=== PATIENT | female | born 1950 | race Caucasian/White ===

== ENCOUNTER 2020-03-18 12:32 | Observation (INO) | payer MEDICARE, MEDICAID, SELFPAY ==
[2020-03-18] VITALS (11 sets, daily range): BP systolic 119–159; BP diastolic 48–78; PULSE 62–91; RESP 16–84; TEMP 36.9–37; O2SAT 92–100; BMI 28.3
--- NOTE | 2020-03-18 12:58 | XR_ITS ---
WS: [id number] Portable AP upright chest, 03/18/2020 Clinical Data: weakness Comparison: PA and lateral chest, 06/17/2015. Findings: No nodules, masses or effusions are seen. The heart is normal. The pulmonary vascularity is not increased. No pneumonia or pneumothorax is seen. The aortic arch and descending aorta show calci fication and tortuosity. There is a vena caval filter. There are clips in the right upper quadrant fr om a cholecystectomy. There is a calcified lymph node adjacent to the right sixth rib. XR/XR chest 1V portable [id number] Impression: Atherosclerosis.
--- NOTE | 2020-03-18 12:59 | ECG_ITS ---
[facility] Test Date: 2020-03-18 Pat Name: Doris Clarke Department: Room: Gender: Female Accreditation Specialist: : [id number] Requested By: Ld Orozco Order Number: [id number] Dominguez MD: Zack Rose M.D. Measurements Intervals [place] Rate: 95 P: 38 DC: 144 QRS: 13 QRSD: 95 T: 40 QT: 331 QTc: 418 Interpretive Statements SINUS RHYTHM POSSIBLE LEFT ATRIAL ENLARGEMENT [-0.1mV P WAVE IN V1/V2] NONSPECIFIC T-WAVE ABNORMALITY Compared to ECG 06/12/2015 11:15:19 No significant changes Electronically Signed On 03-18-2020 20:34:56 CDT by Zack Rose M.D. [id number]
--- NOTE | 2020-03-18 13:16 | W.ED.GENADLT ---
Documented by User: AI Quinonez 03/19/20 08:57 HPI - General Adult General: Chief complaint: General Medical Stated complaint: GENERAL WEAKNESS/ POSSIBLE UTI Time Seen by Provider: 03/18/20 12:48 History of Present Illness: HPI narrative: Patient is a 69 female comes to the ED with generalized weakness and a headache. Symptoms started within the last 24 hours. She describes feeling weak all over her entire body. Headache is rated a 9 out of 10 at its retro-orbital. She describes this headache is the worst headache she has ever had. Denies any numbness tingling or weakness to the side of the body. Denies any facial tingling or weakness. Associated symptoms: Reports headache(s); Deny chest pain, dyspnea, nausea, rash, palpitations or vomiting Review of Systems Const: Reports: fatigue (generalized weakness); Denies: fever(s) or chills Eyes: Denies: change in vision or eye discomfort ENMT: Denies: throat pain, odynophagia, nasal discharge or nasal congestion Card: Denies: chest pain, palpitations, edema, swelling of feet/ankles, dyspnea on exertion or orthopnea Resp: Denies: dyspnea, productive cough or non-productive cough GI: Denies: abdominal pain, nausea, vomiting, diarrhea, constipation or hematochezia : Denies: flank pain, dysuria or hematuria Musc: Denies: neck pain, back pain or extremity swelling Skin/Breast: Denies: rash or new lesions Neuro: Reports: headache(s); Denies: numbness in extremities or weakness in extremities PFS ED PFSH: Medical History (Updated 03/18/20 @ 21:15 by Desean Harrison MD) Chronic anemia Chronic antibiotic suppression Has been taking nitrofurantoin for last 6 months as per the Chronic anticoagulation Coumadin 2 and 3mg daily depending on INR Chronic kidney disease, stage II (mild) CVA (cerebral vascular accident) Dyslipidemia Elevated hemidiaphragm Hypertension Left-sided weakness Lymphedema Moderate pulmonary arterial systolic hypertension Presence of IVC filter Venous stasis dermatitis Surgical History H/O shoulder surgery History of hip surgery History of hysterectomy S/P cholecystectomy Family History Other CAD (coronary artery disease) Hypertension Stroke Social History Smoking and tobacco status: former smoker Alcohol intake: never Substance/Drug Use: never Household members: spouse Housing: House Physical Exam Const: COMMON NORMALS: patient oriented x3 HENMT: COMMON NORMALS: normocephalic HEAD & SCALP: normocephalic MOUTH: Normal oral and palatal mucosa present THROAT: posterior oropharynx normal and uvula midline Neck/C-Spine: COMMON NORMALS: supple GENERAL: Yes normal visual inspection Resp: COMMON NORMALS: normal respiratory effort, No retractions, No use of accessory muscles and clear to auscultation bilaterally AUSCULTATION: clear to auscultation bilaterally Cardio: COMMON NORMALS: regular rate, regular rhythm, S1 normal heart sound present, S2 normal heart sound present, No gallops present (Cardio), No clicks present (Cardio), No murmurs present (Cardio) and Peripheral pulses 2+ throughout RATE: regular rate RHYTHM: regular rhythm HEART SOUNDS: S1 normal heart sound present and S2 normal heart sound present PERIPHERAL PULSES: Peripheral pulses 2+ throughout and dorsalis pedis present positive bilateral 1+ GI: COMMON NORMALS: Normal to inspection, nondistended, normoactive bowel sounds present, Soft to palpation, non-tender and no masses PALPATION: Yes Soft to palpation OTHER: Patient has no abdominal tenderness. Negative for Brock sign. : COMMON NORMALS: Yes no CVA tenderness BLADDER/KIDNEY EXAM: Yes no CVA tenderness Back/Pelvis: COMMON NORMALS: no CVA tenderness Extremity: GENERAL: Yes normal exam except as noted and Yes edema (2+ nonpitting edema in lower extremities bilaterally.) Neuro: COMMON NORMALS: patient oriented x3 and moves all extremities Skin: COMMON NORMALS: no rashes or lesions noted GENERAL SKIN EXAM: no rashes or lesions noted and dry skin Course Reevaluation(s): Reevaluation #1: Patient says her headache improved greatly after Ultram and she rates it below a 5 out of 10. Vital Signs: Vital signs: Vital Signs Temperature 98.1 F 03/19/20 08:00 Pulse Rate 65 03/19/20 08:00 Respiratory Rate 16 03/19/20 08:00 Blood Pressure 115/72 03/19/20 08:00 Pulse Oximetry 96 03/19/20 08:00 [facility] - General Adult Lab Data: Attestation: I reviewed the patient's lab results. Labs: Lab Results 03/18/20 03/18/20 03/18/20 Range/Units 13:29 14:25 14:25 WBC 7.2 (4.0-10.0) 10^3/ uL RBC 4.19 (4.1-5.3) 10^6/u L Hgb 12.7 (11.5-15.3) g/dL Hct 40.3 (37.0-47.0) % MCV 96.2 (81-99) fL MCH 30.3 (28.0-34.0) pg MCHC 31.5 (30.0-36.0) g/dL RDW 13.6 (12.1-15.1) % Plt Count 204 (130-400) 10^3/c mm MPV 10.6 H (7.4-10.4) fL Neut % (Auto) 61.5 % Lymph % (Auto) 25.3 % [place] % (Auto) 10.2 % Eos % (Auto) 1.9 % Baso % (Auto) 0.7 % Neut # (Auto) 4.44 (1.8-7.7) 10^3/u L Lymph # (Auto) 1.8 (0.8-4.8) 10^3/u L [place] # (Auto) 0.7 (0.2-0.9) 10^3/u L Eos # (Auto) 0.1 (0.0-0.8) 10^3/u L Baso # (Auto) 0.1 (0.0-0.1) 10^3/u L Nucleated RBC % (a uto) 0 % Nucleated RBCs # 0.0 /100WBC PT (12.1-14.9) SECO NDS INR (0.8-1.2) Sodium 142 (136-145) mmol/L Potassium 3.5 (3.5-5.1) mmol/L Chloride 103 (98-107) mmol/L Carbon Dioxide 29 (22-29) mmol/L Anion Gap 13.5 (5-19) BUN 20 (8-23) mg/dL Creatinine 0.7 (0.5-0.9) mg/dL GFR Calculation 83.0 L (90-130) mL/min Glucose 124 H (65-115) mg/dL Estimat Average Gl ucose Hemoglobin A1c (4.0-6.0) % Calculated Osmolal ity 298 H (285-295) mOsm/k g Calcium 9.5 (8.5-10.5) mg/dL Total Bilirubin 0.7 (0.15-1.2) mg/dL AST 167 H (0-32) U/L ALT 262 H (0-33) U/L Alkaline Phosphata se 29 L (35-105) IU/L Troponin T Baselin e (0-10) ng/L Troponin T 120 Min [place] (0-10) ng/L Delta Troponin T (0-10) ABS# NT-Pro-B Natriuret Pep (0-125) pg/mL Total Protein 7.0 (6.6-8.7) g/dL Albumin 3.5 (3.5-5.2) g/dL Globulin 3.5 (1.3-4.6) g/dL TSH (0.27-4.20) uIU/ mL Urine Color Yellow (Yellow) Urine Appearance Clear (CLEAR) Urine pH 5 (5-7) Ur Specific Gravit y 1.020 (1.005-1.030) Urine Protein Neg (Negative) Urine Glucose (UA) Norm (Normal) Urine Ketones Negative (Negative) Urine Blood 2+ H (Negative) Urine Nitrate Negative (Negative) Urine Bilirubin Neg (Negative) Urine Urobilinogen Norm (Negative) mg/dL Ur Leukocyte Kiera ase Negative (Negative) Urine RBC 0-4 H (0-2) /hpf Urine WBC 0-4 H (0-5) /hpf Ur Squamous Epith Cells 0-4 H (0-5) /hpf Amorphous Sediment Not Reportable Urine Bacteria Trace (NONE) /hpf Hyaline Casts 10-15 H /lpf Urine Mucus 1+ /hpf Hepatitis A IgM Ab (Nonreactive) Hep Bs Antigen (Nonreactive) Hep Bs Antibody (0-8.5) Hep B Core Total A b (Nonreactive) Hepatitis C Antibo dy (Nonreactive) 03/18/20 03/18/20 03/18/20 Range/Units 14:25 14:25 14:25 WBC (4.0-10.0) 10^3/ uL RBC (4.1-5.3) 10^6/u L Hgb (11.5-15.3) g/dL Hct (37.0-47.0) % MCV (81-99) fL MCH (28.0-34.0) pg MCHC (30.0-36.0) g/dL RDW (12.1-15.1) % Plt Count (130-400) 10^3/c mm MPV (7.4-10.4) fL Neut % (Auto) % Lymph % (Auto) % [place] % (Auto) % Eos % (Auto) % Baso % (Auto) % Neut # (Auto) (1.8-7.7) 10^3/u L Lymph # (Auto) (0.8-4.8) 10^3/u L [place] # (Auto) (0.2-0.9) 10^3/u L Eos # (Auto) (0.0-0.8) 10^3/u L Baso # (Auto) (0.0-0.1) 10^3/u L Nucleated RBC % (a uto) % Nucleated RBCs # /100WBC PT 20.90 H (12.1-14.9) SECO NDS INR 1.74 H (0.8-1.2) Sodium (136-145) mmol/L Potassium (3.5-5.1) mmol/L Chloride (98-107) mmol/L Carbon Dioxide (22-29) mmol/L Anion Gap (5-19) BUN (8-23) mg/dL Creatinine (0.5-0.9) mg/dL GFR Calculation (90-130) mL/min Glucose (65-115) mg/dL Estimat Average Gl ucose Hemoglobin A1c (4.0-6.0) % Calculated Osmolal ity (285-295) mOsm/k g Calcium (8.5-10.5) mg/dL Total Bilirubin (0.15-1.2) mg/dL AST (0-32) U/L ALT (0-33) U/L Alkaline Phosphata se (35-105) IU/L Troponin T Baselin e 17 H (0-10) ng/L Troponin T 120 Min [place] (0-10) ng/L Delta Troponin T (0-10) ABS# NT-Pro-B Natriuret Pep (0-125) pg/mL Total Protein (6.6-8.7) g/dL Albumin (3.5-5.2) g/dL Globulin (1.3-4.6) g/dL TSH (0.27-4.20) uIU/ mL Urine Color (Yellow) Urine Appearance (CLEAR) Urine pH (5-7) Ur Specific Gravit y (1.005-1.030) Urine Protein (Negative) Urine Glucose (UA) (Normal) Urine Ketones (Negative) Urine Blood (Negative) Urine Nitrate (Negative) Urine Bilirubin (Negative) Urine Urobilinogen (Negative) mg/dL Ur Leukocyte Kiera ase (Negative) Urine RBC (0-2) /hpf Urine WBC (0-5) /hpf Ur Squamous Epith Cells (0-5) /hpf Amorphous Sediment Urine Bacteria (NONE) /hpf Hyaline Casts /lpf Urine Mucus /hpf Hepatitis A IgM Ab Non-reactive (Nonreactive) Hep Bs Antigen Non-reactive (Nonreactive) Hep Bs Antibody 3.5 (0-8.5) Hep B Core Total A b Non-reactive (Nonreactive) Hepatitis C Antibo dy Non-reactive (Nonreactive) 03/18/20 03/18/20 03/18/20 Range/Units 14:25 14:25 16:28 WBC (4.0-10.0) 10^3/ uL RBC (4.1-5.3) 10^6/u L Hgb (11.5-15.3) g/dL Hct (37.0-47.0) % MCV (81-99) fL MCH (28.0-34.0) pg MCHC (30.0-36.0) g/dL RDW (12.1-15.1) % Plt Count (130-400) 10^3/c mm MPV (7.4-10.4) fL Neut % (Auto) % Lymph % (Auto) % [place] % (Auto) % Eos % (Auto) % Baso % (Auto) % Neut # (Auto) (1.8-7.7) 10^3/u L Lymph # (Auto) (0.8-4.8) 10^3/u L [place] # (Auto) (0.2-0.9) 10^3/u L Eos # (Auto) (0.0-0.8) 10^3/u L Baso # (Auto) (0.0-0.1) 10^3/u L Nucleated RBC % (a uto) % Nucleated RBCs # /100WBC PT (12.1-14.9) SECO NDS INR (0.8-1.2) Sodium (136-145) mmol/L Potassium (3.5-5.1) mmol/L Chloride (98-107) mmol/L Carbon Dioxide (22-29) mmol/L Anion Gap (5-19) BUN (8-23) mg/dL Creatinine (0.5-0.9) mg/dL GFR Calculation (90-130) mL/min Glucose (65-115) mg/dL Estimat Average Gl ucose 103 Hemoglobin A1c 5.2 (4.0-6.0) % Calculated Osmolal ity (285-295) mOsm/k g Calcium (8.5-10.5) mg/dL Total Bilirubin (0.15-1.2) mg/dL AST (0-32) U/L ALT (0-33) U/L Alkaline Phosphata se (35-105) IU/L Troponin T Baselin e (0-10) ng/L Troponin T 120 Min [place] 17.30 H (0-10) ng/L Delta Troponin T 0.30 (0-10) ABS# NT-Pro-B Natriuret Pep (0-125) pg/mL Total Protein (6.6-8.7) g/dL Albumin (3.5-5.2) g/dL Globulin (1.3-4.6) g/dL TSH 0.63 (0.27-4.20) uIU/ mL Urine Color (Yellow) Urine Appearance (CLEAR) Urine pH (5-7) Ur Specific Gravit y (1.005-1.030) Urine Protein (Negative) Urine Glucose (UA) (Normal) Urine Ketones (Negative) Urine Blood (Negative) Urine Nitrate (Negative) Urine Bilirubin (Negative) Urine Urobilinogen (Negative) mg/dL Ur Leukocyte Kiera ase (Negative) Urine RBC (0-2) /hpf Urine WBC (0-5) /hpf Ur Squamous Epith Cells (0-5) /hpf Amorphous Sediment Urine Bacteria (NONE) /hpf Hyaline Casts /lpf Urine Mucus /hpf Hepatitis A IgM Ab (Nonreactive) Hep Bs Antigen (Nonreactive) Hep Bs Antibody (0-8.5) Hep B Core Total A b (Nonreactive) Hepatitis C Antibo dy (Nonreactive) 03/18/20 Range/Units 16:28 WBC (4.0-10.0) 10^3/ uL RBC (4.1-5.3) 10^6/u L Hgb (11.5-15.3) g/dL Hct (37.0-47.0) % MCV (81-99) fL MCH (28.0-34.0) pg MCHC (30.0-36.0) g/dL RDW (12.1-15.1) % Plt Count (130-400) 10^3/c mm MPV (7.4-10.4) fL Neut % (Auto) % Lymph % (Auto) % [place] % (Auto) % Eos % (Auto) % Baso % (Auto) % Neut # (Auto) (1.8-7.7) 10^3/u L Lymph # (Auto) (0.8-4.8) 10^3/u L [place] # (Auto) (0.2-0.9) 10^3/u L Eos # (Auto) (0.0-0.8) 10^3/u L Baso # (Auto) (0.0-0.1) 10^3/u L Nucleated RBC % (a uto) % Nucleated RBCs # /100WBC PT (12.1-14.9) SECO NDS INR (0.8-1.2) Sodium (136-145) mmol/L Potassium (3.5-5.1) mmol/L Chloride (98-107) mmol/L Carbon Dioxide (22-29) mmol/L Anion Gap (5-19) BUN (8-23) mg/dL Creatinine (0.5-0.9) mg/dL GFR Calculation (90-130) mL/min Glucose (65-115) mg/dL Estimat Average Gl ucose Hemoglobin A1c (4.0-6.0) % Calculated Osmolal ity (285-295) mOsm/k g Calcium (8.5-10.5) mg/dL Total Bilirubin (0.15-1.2) mg/dL AST (0-32) U/L ALT (0-33) U/L Alkaline Phosphata se (35-105) IU/L Troponin T Baselin e (0-10) ng/L Troponin T 120 Min [place] (0-10) ng/L Delta Troponin T (0-10) ABS# NT-Pro-B Natriuret Pep 456 H (0-125) pg/mL Total Protein (6.6-8.7) g/dL Albumin (3.5-5.2) g/dL Globulin (1.3-4.6) g/dL TSH (0.27-4.20) uIU/ mL Urine Color (Yellow) Urine Appearance (CLEAR) Urine pH (5-7) Ur Specific Gravit y (1.005-1.030) Urine Protein (Negative) Urine Glucose (UA) (Normal) Urine Ketones (Negative) Urine Blood (Negative) Urine Nitrate (Negative) Urine Bilirubin (Negative) Urine Urobilinogen (Negative) mg/dL Ur Leukocyte Kiera ase (Negative) Urine RBC (0-2) /hpf Urine WBC (0-5) /hpf Ur Squamous Epith Cells (0-5) /hpf Amorphous Sediment Urine Bacteria (NONE) /hpf Hyaline Casts /lpf Urine Mucus /hpf Hepatitis A IgM Ab (Nonreactive) Hep Bs Antigen (Nonreactive) Hep Bs Antibody (0-8.5) Hep B Core Total A b (Nonreactive) Hepatitis C Antibo dy (Nonreactive) Imaging Data^: CXR: Attestation: I personally reviewed and interpreted this imaging study as follows: Radiologist's impression: [address] [address] XRay Report Signed Patient: Doris Clarke Unit #: [id number] : 1950 Age/Sex: 69 / F ADM Date: 03/18/20 Loc: ER Room/Bed: Attending Dr: Ordering Provider/Ordering MD: Ld Orozco Date of Service: 03/18/20 Procedure(s): XR chest 1V portable [id number] Accession Number(s): [id number] Report Number: [id number] WS: [id number] Portable AP upright chest, 03/18/2020 Clinical Data: weakness Comparison: PA and lateral chest, 06/17/2015. Findings: No nodules, masses or effusions are seen. The heart is normal. The pulmonary vascularity is not increased. No pneumonia or pneumothorax is seen. The aortic arch and descending aorta show calcification and tortuosity. There is a vena caval filter. There are clips in the right upper quadrant from a cholecystectomy. There is a calcified lymph node adjacent to the right sixth rib. XR/XR chest 1V portable [id number] Impression: Atherosclerosis. Dictated By: Barbie Berger MD Signed By: Barbie Berger MD Signed Date/Time: 03/18/20 1346 DD/ 134 CT Head: Attestation: I personally reviewed and interpreted this imaging study as follows: Radiologist's impression: [place] [address] CT Scan Report Signed Patient: Doris Clarke Unit #: [id number] : 1950 Age/Sex: 69 / F ADM Date: 03/18/20 Loc: ER Room/Bed: Attending Dr: Ordering Provider/Ordering MD: Ld Orozco Date of Service: 03/18/20 Procedure(s): CT head wo con* [id number] Accession Number(s): [id number] Report Number: [id number] PROCEDURE INFORMATION: Exam: CT Head Without Contrast Exam date and time: 03/18/2020 2:09 PM Age: 69 years old Clinical indication: Pain; Headache not specified; Additional info: Headache worst she has ever had TECHNIQUE: Imaging protocol: Computed tomography of the head without contrast. Radiation optimization: All CT scans at this facility use at least one of these dose optimization techniques: automated exposure control; mA and/or kV adjustment per patient size (includes targeted exams where dose is matched to clinical indication); or iterative reconstruction. COMPARISON: CT head wo con* [id number] 03/16/2015 11:28 AM RADIATION DOSE METRICS: Total DLP (mGy-cm): 828.66 FINDINGS: Brain: No hemorrhage. No edema or mass effect. Stable atrophy. Cerebral ventricles: Minimal ventricular dilatation. Bones/joints: Unremarkable. No acute fracture. Paranasal sinuses: Visualized sinuses are unremarkable. No fluid levels. Mastoid air cells: Unremarkable. Soft tissues: Unremarkable. CT/CT head wo con* [id number] IMPRESSION: No acute intracranial abnormality. Radiation Dose CTDIVOL = (mGy): DLP = 828.66 (mGy-cm) Dictated By: Donald Mcneil MD Signed By: Donald Mcneil MD Signed Date/Time: 03/18/201452 DD/ 50 EKG Data^: EKG 1: Attestation: I personally reviewed and interpreted this EKG as follows: EKG interpretation date: 03/18/20 Interpretation: Sinus rhythm, 95 bpm, no ST segment elevation or depression seen. Computer generated interpretation: Chest X-Ray 03/18/20 12:58 Impression: Atherosclerosis. Head CT 03/18/20 13:53 IMPRESSION: No acute intracranial abnormality. Radiation Dose CTDIVOL = (mGy): DLP = 828.66 (mGy-cm) Abdomen/Pelvis CT 03/18/20 17:55 IMPRESSION: No acute findings. Radiation Dose CTDIVOL = (mGy): DLP = 1462.63 (mGy-cm) Discharge Plan Discharge Patient Disposition: Admitted As Inpatient Admit Provider: Desean Harrison Clinical Impression: Generalized weakness, Elevated liver enzymes Headache Qualifiers: Headache type: unspecified Headache chronicity pattern: acute headache Intractability: not intractable Qualified Code(s): R51.9 - Headache, unspecified Condition: Stable Referrals: Efren Romano MD [Family Provider] - Discharge Diet: Regular Discharge Activity: Increase activity as tolerated Patient Instructions: Acute Headache (ED), Weakness (Generalized) Additional Instructions: Follow-up with medical provider as directed early next week. Continue taking all home medications as prescribed. Return to the ER or your medical provider if condition worsens. Please read and understand discharge instructions. If any questions, please ask. Discharge Date/Time: 03/18/20 21:16 Coding Level of Care Code ED Patient Consumer Marketer for Chg Fwd Exam Comprehensive Documented by User: Danita Calixto MD, [facility] [place] 03/18/20 23:28 HPI - General Adult General: Chief complaint: General Medical Stated complaint: GENERAL WEAKNESS/ POSSIBLE UTI Time Seen by Provider: 03/18/20 12:48 [facility] ED PFSH: Medical History (Updated 03/18/20 @ 21:15 by Desean Harrison MD) Chronic anemia Chronic antibiotic suppression Has been taking nitrofurantoin for last 6 months as per the Chronic anticoagulation Coumadin 2 and 3mg daily depending on INR Chronic kidney disease, stage II (mild) CVA (cerebral vascular accident) Dyslipidemia Elevated hemidiaphragm Hypertension Left-sided weakness Lymphedema Moderate pulmonary arterial systolic hypertension Presence of IVC filter Venous stasis dermatitis Surgical History H/O shoulder surgery History of hip surgery History of hysterectomy S/P cholecystectomy Family History Other CAD (coronary artery disease) Hypertension Stroke Social History Smoking and tobacco status: former smoker Alcohol intake: never Substance/Drug Use: never Household members: spouse Housing: House Course ED course: Patient who presents to the emergency department with nonspecific symptoms of generalized weakness. Patient was evaluated no acute findings were followed, however when it was time to discharge had the patient was unable to get up out of bed unassisted and it took 3 people to get up from the bed into the wheelchair. Since she lives alone with her I do not think it is safe for her to be discharged home. She is therefore admitted overnight for further evaluation and management. She likely will need some rehabilitation with physical therapy. Consultations: Consultation #1: Discussed with Dr. Harrison, hospitalist and he kindly accepted the patient to his service Time: 20:30 Vital Signs: Vital signs: Vital Signs Temperature 98.1 F 03/19/20 08:00 Pulse Rate 65 03/19/20 08:00 Respiratory Rate 16 03/19/20 08:00 Blood Pressure 115/72 03/19/20 08:00 Pulse Oximetry 96 03/19/20 08:00 MDM - General Adult MDM Narrative: Medical decision making narrative: Presents with generalized weakness no acute findings on the evaluation in the emergency department. However the patient was unable to get up on go to a chair after discharge. It is not safe for her to be discharged home, therefore she is admitted to the hospital. Lab Data: Labs: Lab Results 03/18/20 03/18/20 03/18/20 Range/Units 13:29 14:25 14:25 WBC 7.2 (4.0-10.0) 10^3/ uL RBC 4.19 (4.1-5.3) 10^6/u L Hgb 12.7 (11.5-15.3) g/dL Hct 40.3 (37.0-47.0) % MCV 96.2 (81-99) fL MCH 30.3 (28.0-34.0) pg MCHC 31.5 (30.0-36.0) g/dL RDW 13.6 (12.1-15.1) % Plt Count 204 (130-400) 10^3/c mm MPV 10.6 H (7.4-10.4) fL Neut % (Auto) 61.5 % Lymph % (Auto) 25.3 % [place] % (Auto) 10.2 % Eos % (Auto) 1.9 % Baso % (Auto) 0.7 % Neut # (Auto) 4.44 (1.8-7.7) 10^3/u L Lymph # (Auto) 1.8 (0.8-4.8) 10^3/u L [place] # (Auto) 0.7 (0.2-0.9) 10^3/u L Eos # (Auto) 0.1 (0.0-0.8) 10^3/u L Baso # (Auto) 0.1 (0.0-0.1) 10^3/u L Nucleated RBC % (a uto) 0 % Nucleated RBCs # 0.0 /100WBC PT (12.1-14.9) SECO NDS INR (0.8-1.2) Sodium 142 (136-145) mmol/L Potassium 3.5 (3.5-5.1) mmol/L Chloride 103 (98-107) mmol/L Carbon Dioxide 29 (22-29) mmol/L Anion Gap 13.5 (5-19) BUN 20 (8-23) mg/dL Creatinine 0.7 (0.5-0.9) mg/dL GFR Calculation 83.0 L (90-130) mL/min Glucose 124 H (65-115) mg/dL Estimat Average Gl ucose Hemoglobin A1c (4.0-6.0) % Calculated Osmolal ity 298 H (285-295) mOsm/k g Calcium 9.5 (8.5-10.5) mg/dL Total Bilirubin 0.7 (0.15-1.2) mg/dL AST 167 H (0-32) U/L ALT 262 H (0-33) U/L Alkaline Phosphata se 29 L (35-105) IU/L Troponin T Baselin e (0-10) ng/L Troponin T 120 Min [place] (0-10) ng/L Delta Troponin T (0-10) ABS# NT-Pro-B Natriuret Pep (0-125) pg/mL Total Protein 7.0 (6.6-8.7) g/dL Albumin 3.5 (3.5-5.2) g/dL Globulin 3.5 (1.3-4.6) g/dL TSH (0.27-4.20) uIU/ mL Urine Color Yellow (Yellow) Urine Appearance Clear (CLEAR) Urine pH 5 (5-7) Ur Specific Gravit y 1.020 (1.005-1.030) Urine Protein Neg (Negative) Urine Glucose (UA) Norm (Normal) Urine Ketones Negative (Negative) Urine Blood 2+ H (Negative) Urine Nitrate Negative (Negative) Urine Bilirubin Neg (Negative) Urine Urobilinogen Norm (Negative) mg/dL Ur Leukocyte Kiera ase Negative (Negative) Urine RBC 0-4 H (0-2) /hpf Urine WBC 0-4 H (0-5) /hpf Ur Squamous Epith Cells 0-4 H (0-5) /hpf Amorphous Sediment Not Reportable Urine Bacteria Trace (NONE) /hpf Hyaline Casts 10-15 H /lpf Urine Mucus 1+ /hpf Hepatitis A IgM Ab (Nonreactive) Hep Bs Antigen (Nonreactive) Hep Bs Antibody (0-8.5) Hep B Core Total A b (Nonreactive) Hepatitis C Antibo dy (Nonreactive) 03/18/20 03/18/20 03/18/20 Range/Units 14:25 14:25 14:25 WBC (4.0-10.0) 10^3/ uL RBC (4.1-5.3) 10^6/u L Hgb (11.5-15.3) g/dL Hct (37.0-47.0) % MCV (81-99) fL MCH (28.0-34.0) pg MCHC (30.0-36.0) g/dL RDW (12.1-15.1) % Plt Count (130-400) 10^3/c mm MPV (7.4-10.4) fL Neut % (Auto) % Lymph % (Auto) % [place] % (Auto) % Eos % (Auto) % Baso % (Auto) % Neut # (Auto) (1.8-7.7) 10^3/u L Lymph # (Auto) (0.8-4.8) 10^3/u L [place] # (Auto) (0.2-0.9) 10^3/u L Eos # (Auto) (0.0-0.8) 10^3/u L Baso # (Auto) (0.0-0.1) 10^3/u L Nucleated RBC % (a uto) % Nucleated RBCs # /100WBC PT 20.90 H (12.1-14.9) SECO NDS INR 1.74 H (0.8-1.2) Sodium (136-145) mmol/L Potassium (3.5-5.1) mmol/L Chloride (98-107) mmol/L Carbon Dioxide (22-29) mmol/L Anion Gap (5-19) BUN (8-23) mg/dL Creatinine (0.5-0.9) mg/dL GFR Calculation (90-130) mL/min Glucose (65-115) mg/dL Estimat Average Gl ucose Hemoglobin A1c (4.0-6.0) % Calculated Osmolal ity (285-295) mOsm/k g Calcium (8.5-10.5) mg/dL Total Bilirubin (0.15-1.2) mg/dL AST (0-32) U/L ALT (0-33) U/L Alkaline Phosphata se (35-105) IU/L Troponin T Baselin e 17 H (0-10) ng/L Troponin T 120 Min [place] (0-10) ng/L Delta Troponin T (0-10) ABS# NT-Pro-B Natriuret Pep (0-125) pg/mL Total Protein (6.6-8.7) g/dL Albumin (3.5-5.2) g/dL Globulin (1.3-4.6) g/dL TSH (0.27-4.20) uIU/ mL Urine Color (Yellow) Urine Appearance (CLEAR) Urine pH (5-7) Ur Specific Gravit y (1.005-1.030) Urine Protein (Negative) Urine Glucose (UA) (Normal) Urine Ketones (Negative) Urine Blood (Negative) Urine Nitrate (Negative) Urine Bilirubin (Negative) Urine Urobilinogen (Negative) mg/dL Ur Leukocyte [place] a[place] (Negative) Urine RBC (0-2) /hpf Urine WBC (0-5) /hpf Ur Squamous Epith Cells (0-5) /hpf Amorphous Sediment Urine Bacteria (NONE) /hpf Hyaline Casts /lpf Urine Mucus /hpf Hepatitis A IgM Ab Non-reactive (Nonreactive) Hep Bs Antigen Non-reactive (Nonreactive) Hep Bs Antibody 3.5 (0-8.5) Hep B Core Total A b Non-reactive (Nonreactive) Hepatitis C Antibo dy Non-reactive (Nonreactive) 03/18/20 03/18/20 03/18/20 Range/Units 14:25 14:25 16:28 WBC (4.0-10.0) 10^3/ uL RBC (4.1-5.3) 10^6/u L Hgb (11.5-15.3) g/dL Hct (37.0-47.0) % MCV (81-99) fL MCH (28.0-34.0) pg MCHC (30.0-36.0) g/dL RDW (12.1-15.1) % Plt Count (130-400) 10^3/c mm MPV (7.4-10.4) fL Neut % (Auto) % Lymph % (Auto) % [place] % (Auto) % Eos % (Auto) % Baso % (Auto) % Neut # (Auto) (1.8-7.7) 10^3/u L Lymph # (Auto) (0.8-4.8) 10^3/u L [place] # (Auto) (0.2-0.9) 10^3/u L Eos # (Auto) (0.0-0.8) 10^3/u L Baso # (Auto) (0.0-0.1) 10^3/u L Nucleated RBC % (a uto) % Nucleated RBCs # /100WBC PT (12.1-14.9) SECO NDS INR (0.8-1.2) Sodium (136-145) mmol/L Potassium (3.5-5.1) mmol/L Chloride (98-107) mmol/L Carbon Dioxide (22-29) mmol/L Anion Gap (5-19) BUN (8-23) mg/dL Creatinine (0.5-0.9) mg/dL GFR Calculation (90-130) mL/min Glucose (65-115) mg/dL Estimat Average Gl ucose 103 Hemoglobin A1c 5.2 (4.0-6.0) % Calculated Osmolal ity (285-295) mOsm/k g Calcium (8.5-10.5) mg/dL Total Bilirubin (0.15-1.2) mg/dL AST (0-32) U/L ALT (0-33) U/L Alkaline Phosphata se (35-105) IU/L Troponin T Baselin e (0-10) ng/L Troponin T 120 Min [place] 17.30 H (0-10) ng/L Delta Troponin T 0.30 (0-10) ABS# NT-Pro-B Natriuret Pep (0-125) pg/mL Total Protein (6.6-8.7) g/dL Albumin (3.5-5.2) g/dL Globulin (1.3-4.6) g/dL TSH 0.63 (0.27-4.20) uIU/ mL Urine Color (Yellow) Urine Appearance (CLEAR) Urine pH (5-7) Ur Specific Gravit y (1.005-1.030) Urine Protein (Negative) Urine Glucose (UA) (Normal) Urine Ketones (Negative) Urine Blood (Negative) Urine Nitrate (Negative) Urine Bilirubin (Negative) Urine Urobilinogen (Negative) mg/dL Ur Leukocyte Kiera ase (Negative) Urine RBC (0-2) /hpf Urine WBC (0-5) /hpf Ur Squamous Epith Cells (0-5) /hpf Amorphous Sediment Urine Bacteria (NONE) /hpf Hyaline Casts /lpf Urine Mucus /hpf Hepatitis A IgM Ab (Nonreactive) Hep Bs Antigen (Nonreactive) Hep Bs Antibody (0-8.5) Hep B Core Total A b (Nonreactive) Hepatitis C Antibo dy (Nonreactive) 03/18/20 Range/Units 16:28 WBC (4.0-10.0) 10^3/ uL RBC (4.1-5.3) 10^6/u L Hgb (11.5-15.3) g/dL Hct (37.0-47.0) % MCV (81-99) fL MCH (28.0-34.0) pg MCHC (30.0-36.0) g/dL RDW (12.1-15.1) % Plt Count (130-400) 10^3/c mm MPV (7.4-10.4) fL Neut % (Auto) % Lymph % (Auto) % [place] % (Auto) % Eos % (Auto) % Baso % (Auto) % Neut # (Auto) (1.8-7.7) 10^3/u L Lymph # (Auto) (0.8-4.8) 10^3/u L [place] # (Auto) (0.2-0.9) 10^3/u L Eos # (Auto) (0.0-0.8) 10^3/u L Baso # (Auto) (0.0-0.1) 10^3/u L Nucleated RBC % (a uto) % Nucleated RBCs # /100WBC PT (12.1-14.9) SECO NDS INR (0.8-1.2) Sodium (136-145) mmol/L Potassium (3.5-5.1) mmol/L Chloride (98-107) mmol/L Carbon Dioxide (22-29) mmol/L Anion Gap (5-19) BUN (8-23) mg/dL Creatinine (0.5-0.9) mg/dL GFR Calculation (90-130) mL/min Glucose (65-115) mg/dL Estimat Average Gl ucose Hemoglobin A1c (4.0-6.0) % Calculated Osmolal ity (285-295) mOsm/k g Calcium (8.5-10.5) mg/dL Total Bilirubin (0.15-1.2) mg/dL AST (0-32) U/L ALT (0-33) U/L Alkaline Phosphata se (35-105) IU/L Troponin T Baselin e (0-10) ng/L Troponin T 120 Min [place] (0-10) ng/L Delta Troponin T (0-10) ABS# NT-Pro-B Natriuret Pep 456 H (0-125) pg/mL Total Protein (6.6-8.7) g/dL Albumin (3.5-5.2) g/dL Globulin (1.3-4.6) g/dL TSH (0.27-4.20) uIU/ mL Urine Color (Yellow) Urine Appearance (CLEAR) Urine pH (5-7) Ur Specific Gravit y (1.005-1.030) Urine Protein (Negative) Urine Glucose (UA) (Normal) Urine Ketones (Negative) Urine Blood (Negative) Urine Nitrate (Negative) Urine Bilirubin (Negative) Urine Urobilinogen (Negative) mg/dL Ur Leukocyte Kiera ase (Negative) Urine RBC (0-2) /hpf Urine WBC (0-5) /hpf Ur Squamous Epith Cells (0-5) /hpf Amorphous Sediment Urine Bacteria (NONE) /hpf Hyaline Casts /lpf Urine Mucus /hpf Hepatitis A IgM Ab (Nonreactive) Hep Bs Antigen (Nonreactive) Hep Bs Antibody (0-8.5) Hep B Core Total A b (Nonreactive) Hepatitis C Antibo dy (Nonreactive) EKG Data^: EKG 1: Computer generated interpretation: Chest X-Ray 03/18/20 12:58 Impression: Atherosclerosis. Head CT 03/18/20 13:53 IMPRESSION: No acute intracranial abnormality. Radiation Dose CTDIVOL = (mGy): DLP = 828.66 (mGy-cm) Abdomen/Pelvis CT 03/18/20 17:55 IMPRESSION: No acute findings. Radiation Dose CTDIVOL = (mGy): DLP = 1462.63 (mGy-cm) Discharge Plan Discharge Patient Disposition: Admitted As Inpatient Admit Provider: Desean Harrison Clinical Impression: Generalized weakness, Elevated liver enzymes Headache Qualifiers: Headache type: unspecified Headache chronicity pattern: acute headache Intractability: not intractable Qualified Code(s): R51.9 - Headache, unspecified Condition: Stable Referrals: Efren Romano MD [Family Provider] - Discharge Diet: Regular Discharge Activity: Increase activity as tolerated Patient Instructions: Acute Headache (ED), Weakness (Generalized) Additional Instructions: Follow-up with medical provider as directed early next week. Continue taking all home medications as prescribed. Return to the ER or your medical provider if condition worsens. Please read and understand discharge instructions. If any questions, please ask. Discharge Date/Time: 03/18/20 21:16 Coding Level of Care Code ED Patient Consumer Marketer for Walterg Fwd Exam Comprehensive
--- NOTE | 2020-03-18 13:53 | CTR_ITS ---
PROCEDURE INFORMATION: Exam: CT Head Without Contrast Exam date and time: 03/18/2020 2:09 PM Age: 69 years old Clinical indication: Pain; Headache not specified; Additional info: Headache worst she has ever had TECHNIQUE: Imaging protocol: Computed tomography of the head without contrast. Radiation optimization: All CT scans at this facility use at least one of these dose optimization techniques: automated exposure control; mA and/or kV adjustment per patient size (includes targeted exams where dose is matched to clinical indication); or iterative reconstruction. COMPARISON: CT head wo con* [id number] 03/16/2015 11:28 AM RADIATION DOSE METRICS: Total DLP (mGy-cm): 828.66 FINDINGS: Brain: No hemorrhage. No edema or mass effect. Stable atrophy. Cerebral ventricles: Minimal ventricular dilatation. Bones/joints: Unremarkable. No acute fracture. Paranasal sinuses: Visualized sinuses are unremarkable. No fluid levels. Mastoid air cells: Unremarkable. Soft tissues: Unremarkable. CT/CT head wo con* [id number] IMPRESSION: No acute intracranial abnormality. Radiation Dose CTDIVOL = (mGy): DLP = 828.66 (mGy-cm)
[2020-03-18 14:10] LABS: Bilirubin Urine Neg (Negative); Blood Urine 2+ (Negative); Glucose Urine UA Norm (Normal); Ketones Urine Negative (Negative); Leukocyte Esterase Urine Negative (Negative); Nitrate Urine Negative (Negative); Protein Urine Neg (Negative); Urine Appearance Clear (CLEAR); Urine Color Yellow (Yellow); Urobilinogen Urine Norm (Negative); pH Urine 5 (5-7)
[2020-03-18 14:11] LABS: Add Urine Culture? No; Bacteria Urine TRACE /hpf; Mucus Urine 1+ /hpf; RBC Urine 0-4 /hpf (0-2); Squamous Epithelial Cell Urine 0-4 /hpf (0-5); WBC Urine 0-4 /hpf (0-5)
[2020-03-18 14:37] LABS: Basophils # 0.1 10^3/uL (0.0-0.1); Basophils % 0.7 %; Eosinophils # 0.1 10^3/uL (0.0-0.8); Eosinophils % 1.9 %; Hematocrit 40.3 % (37.0-47.0); Hemoglobin 12.7 g/dL (11.5-15.3); Lymphocytes # 1.8 10^3/uL (0.8-4.8); Lymphocytes % 25.3 %; Mean Corpuscular HGB Conc 31.5 g/dL (30.0-36.0); Mean Corpuscular Hemoglobin 30.3 pg (28.0-34.0); Mean Corpuscular Volume 96.2 fL (81-99); Mean Platelet Volume 10.6 fL (7.4-10.4); Monocytes # 0.7 10^3/uL (0.2-0.9); Monocytes % 10.2 %; Neutrophils # 4.44 10^3/uL (1.8-7.7); Neutrophils % 61.5 %; Nucleated Red Blood Cells % 0 %; Platelet Count 204 10^3/cmm (130-400); Red Blood Count 4.19 10^6/uL (4.1-5.3); Red Cell Distribution Width 13.6 % (12.1-15.1); White Blood Count 7.2 10^3/uL (4.0-10.0)
--- NOTE | 2020-03-18 14:59 | ECG_ITS ---
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 Measurements Intervals [place] Rate: 76 P: 55 DE: 147 QRS: 29 QRSD: 97 T: 52 QT: 372 QTc: 419 Interpretive Statements SINUS RHYTHM POSSIBLE RIGHT VENTRICULAR CONDUCTION DELAY [RSR (QR) IN V1/V2] NONSPECIFIC T-WAVE ABNORMALITY Compared to ECG 03/18/2020 13:13:36 No significant changes Electronically Signed On 03-18-2020 20:39:36 CDT by Zack Rose M.D. [id number]
[2020-03-18 15:15] LABS: Alanine Aminotransferase 262 U/L (0-33); Albumin Level 3.5 g/dL (3.5-5.2); Alkaline Phosphatase 29 IU/L (35-105); Anion Gap 13.5 (5-19); Aspartate Amino Transferase 167 U/L (0-32); Blood Urea Nitrogen 20 mg/dL (8-23); Calcium 9.5 mg/dL (8.5-10.5); Carbon Dioxide 29 mmol/L (22-29); Chloride 103 mmol/L (98-107); Globulin 3.5 g/dL (1.3-4.6); Glucose 124 mg/dL (65-115); Osmolality Calculated 298 mOsm/kg (285-295); Potassium 3.5 mmol/L (3.5-5.1); Sodium 142 mmol/L (136-145); Total Bilirubin 0.7 mg/dL (0.15-1.2)
[2020-03-18 15:18] LABS: Troponin(5th) Baseline 17 ng/L (0-10)
[2020-03-18] MEDS: TRAMadol 50 mg Tablet PO (15:46)
[2020-03-18 17:50] LABS: Hepatitis A Antibody IgM Non-Reactive (Nonreactive); Hepatitis B Core AB, Total Non-Reactive (Nonreactive); Hepatitis B Surface AB 3.5 (0-8.5); Hepatitis B Surface Antigen Non-Reactive (Nonreactive); Hepatitis C Virus Antibody Non-Reactive (Nonreactive)
--- NOTE | 2020-03-18 17:55 | CTR_ITS ---
PROCEDURE INFORMATION: Exam: CT Abdomen And Pelvis Without Contrast Exam date and time: 03/18/2020 6:42 PM Age: 69 years old Clinical indication: Prior surgery; Surgery date: 6+ months; Surgery type: Gb, hyst; Patient HX: C/O weakness w elev liver enzymes; Additional info: Elevated liver enzymes, weakness TECHNIQUE: Imaging protocol: Computed tomography of the abdomen and pelvis without contrast. Radiation optimization: All CT scans at this facility use at least one of these dose optimization techniques: automated exposure control; mA and/or kV adjustment per patient size (includes targeted exams where dose is matched to clinical indication); or iterative reconstruction. COMPARISON: CT abdomen pelvis con [id number] 06/01/2013 10:31 AM RADIATION DOSE METRICS: Total DLP (mGy-cm): 1462.63 FINDINGS: Liver: No mass. Gallbladder and bile ducts: Cholecystectomy. Pancreas: Normal. No ductal dilation. Spleen: Normal. No splenomegaly. Adrenals: Normal. No mass. Kidneys and ureters: No calculus or hydronephrosis. Stomach and bowel: No acute findings. No obstruction. No mucosal thickening. Appendix: No evidence of appendicitis. Intraperitoneal space: Unremarkable. No free air. No significant fluid collection. Vasculature: No abdominal aortic aneurysm. IVC filter. Lymph nodes: No significant adenopathy. Urinary bladder: Unremarkable as visualized. Reproductive: Hysterectomy. Bones/joints: No acute findings. Lumbar degenerative change. Soft tissues: No acute findings. CT/CT abdomen pelvis con [id number] IMPRESSION: No acute findings. Radiation Dose CTDIVOL = (mGy): DLP = 1462.63 (mGy-cm)
--- NOTE | 2020-03-18 18:59 | ECG_ITS ---
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 Measurements Intervals [place] Rate: 60 P: 56 GA: 143 QRS: 39 QRSD: 102 T: 40 QT: 407 QTc: 407 Interpretive Statements SINUS RHYTHM WITH SINUS ARRHYTHMIA POSSIBLE RIGHT VENTRICULAR CONDUCTION DELAY [RSR (QR) IN V1/V2] NONSPECIFIC T-WAVE ABNORMALITY Compared to ECG 03/18/2020 15:26:04 No significant changes Electronically Signed On 03-18-2020 20:41:07 CDT by Zack Rose M.D. [id number]
--- NOTE | 2020-03-18 19:05 | PC.NURSE ---
EKG done at 1906 and shown to ER doctor
[2020-03-18 19:36] LABS: NT Pro B Type Natriuretic Pept 456 pg/mL (0-125)
--- NOTE | 2020-03-18 20:23 | PM.HP ---
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 is her caregiver, at baseline she eats regular diet with her right hand, she walks with ambulation, her ambulation is limited because of lymphedema, patient and both are denying previous history of CHF, she is on multiple medications including nitrofurantoin. As per the she has been on nitrofurantoin for last 6 months. is stating that 2 nights ago around 2 AM when he was asleep, he woke up because of foul-smelling odor in the room, when he checked, his had 1 large diarrheal bowel movement it was all over her bed, she had regular semisolid bowel movement before going to bed. In the next few days she started getting more weaker and fatigued however her p.o. intake has been adequate, no fever, vomiting has been noticed. Patient is denying chest pain, shortness of breath, dysuria, abdominal pain, headache. At the time my evaluation she is awake alert coherent Diagnostics in the ER revealed hypotension, normal hemodynamics, saturating well on 3 L nasal cannula, abnormal transaminases, hepatitis panel negative, BNP above 400, UA unremarkable I have reviewed home medications Tizanidine 4 mg daily Lasix 20 mg twice a day, nitrofurantoin 50 mg daily Ropinirole 1 mg in the morning and 2 in the evening Metoprolol 25 mg twice a day Trazodone 100 mg daily Amitriptyline 25 mg daily Alprazolam 1 tablet daily Atorvastatin 40 mg daily Oxybutynin 5 mg twice a day Diazepam 5 mg twice a day Coumadin 5 mg daily Omeprazole 20 mg daily Review of Systems Const: Reports: chills, body aches, fatigue and daytime sleepiness; Denies: fever(s), change in appetite or diaphoresis Eyes: Denies: change in vision ENMT: Denies: throat pain Card: Reports: swelling of feet/ankles; Denies: chest pain, dyspnea on exertion or orthopnea Resp: Denies: dyspnea GI: Reports: diarrhea; Denies: abdominal pain or nausea : Denies: flank pain or dysuria Musc: Reports: extremity swelling; Denies: neck pain Skin/Breast: Reports: lesions; Denies: rash Neuro: Reports: difficulty walking; Denies: headache(s) Psych: Reports: sleeping more Endo: Reports: cold intolerance; Denies: polyuria [place]/Lymph: Denies: easy bruising All/Imm: Denies: urticaria Medications/Allergies Allergies Allergy/AdvReac Type Severity Reaction Status Date / Time latex Allergy Unknown Verified 03/18/20 12:47 Sulfa (Sulfonamide Allergy Unknown Verified 03/18/20 12:47 Antibiotics) PFSH Acute PFSH: Medical History (Updated 03/18/20 @ 21:15 by Desean Harrison MD) Chronic anemia Chronic antibiotic suppression Has been taking nitrofurantoin for last 6 months as per the Chronic anticoagulation Coumadin 2 and 3mg daily depending on INR Chronic kidney disease, stage II (mild) CVA (cerebral vascular accident) Dyslipidemia Elevated hemidiaphragm Hypertension Left-sided weakness Lymphedema Moderate pulmonary arterial systolic hypertension Presence of IVC filter Venous stasis dermatitis Surgical History H/O shoulder surgery History of hip surgery History of hysterectomy S/P cholecystectomy Family History Other CAD (coronary artery disease) Hypertension Stroke Social History Smoking and tobacco status: former smoker Alcohol intake: never Substance/Drug Use: never Household members: spouse Housing: House Vitals/I&O/Wt Last Vital Signs Temp 98.6 F 03/18/20 12:33 Pulse 62 03/18/20 19:30 Resp 16 03/18/20 19:30 BP 131/48 03/18/20 19:30 Pulse Ox 98 03/18/20 19:30 Weight last 48 hrs Weight 68.039 kg Physical Exam Narrative: EXAM NARRATIVE: This is a morbid obese female who is currently lying comfortable in her bed saturating well on 3 to nasal cannula Fluid overloaded Lymphedema Awake alert oriented x3 but able to protect airways, GCS 15 Not complaining of active chest pain lance pain or shortness of breath Venous stasis dermatitis, lymphedema bilateral lower extremity Abdomen distended bowel sound present nontender, distended, obese obesity Systolic murmur 2/6, fluid overloaded, S1, S2 Bilateral diminished breath sounds however no acute respiratory distress Patient seems tired and fatigued No lower extremity gangrene Chronic venous stasis changes on lower extremities She is wearing adult diapers Data : 03/18/20 14:25 03/18/20 14:25 Micro: Microbiology 03/18/20 14:25 Blood Culture - Preliminary Blood SPECIMEN COLLECTED A&P Assessment and plan (1) Generalized weakness: Status: Acute Additional A&P Information Generalized weakness after an episode of profuse diarrhea Considering history of nitrofurantoin for last 6 months I will check C. difficile Patient has not taken any stool softeners Endorsing semisolid bowel movement Afebrile, no leukocytosis, no sepsis Patient is not able to ambulate on her own anymore, at baseline she uses walker, lower extremity lymphedema with limited ambulation, no sign of cord compression, she has good sensation on medial side of her thighs, strength 2/5 of lower extremities, no signs of stroke, CT head unremarkable, no signs of UTI, chest x-ray unremarkable, I would obtain TSH, B12 level Physical therapy evaluation in the morning Fluid overloaded, new onset CHF BNP greater than 400, We will check echo in the morning And start to assess her fluid status considering lymphedema however skin wrinkling evident, I would use Lasix 60 mg for now History of DVT/PE status post IVC filter placement Check INR, Depending on her INR will adjust Coumadin dosage Elevated liver enzymes most likely due to congestive heart failure Hepatitis panel negative No signs of cholangitis Full code Cardiac diet DVT prophylaxis not indicated due to Coumadin usage Patient will most likely will need long-term intermediate placement considering worsening generalized weakness, is in agreement for now, kindly readdress in the morning was not sure about DVT/PE and indication of Coumadin, kindly reach out to PCP Dr. Romano Attestations Medical Necessity Statement*: Anticipating stay in the hospital to be less than 2 midnights continued evaluation by physical therapy, echo in the morning for new onset CHF, Time Spent in Patient Care: (>than 50% of time spent in counselling and/or direct pt care on unit). 45mins Coding Level of Care Code Acute Microeconomics Professor for Chg Fwd Diagnoses Generalized weakness R53.1
[2020-03-18 21:31] LABS: INR 1.74 (0.8-1.2)
[2020-03-18 22:33] LABS: Thyroid Stimulating Hormone 0.63 uIU/mL (0.27-4.20)
--- NOTE | 2020-03-18 22:42 | PC.NURSE ---
Patient arrived at 2130 via strecher from the ED. Patient requires 3L NC. Patient had to be transferred to MS bed with total assist. Patient was given a bed bath by this nurse and the DIGITAL ASSOCIATE MEDIA DIRECTOR, tolerated well. Patient has dry skin which lotion was applied. Protective cream was applied to the areas of redness. When the patient first arrived she was in emotional distress due to her being away from her , however, now she appears to have calmed down.
[2020-03-18 23:10] LABS: Estmated Average Glucose 103; Hemoglobin A1C 5.2 % (4.0-6.0)
[2020-03-18] MEDS: ropinirole 1 mg Tablet PO (23:17)
[2020-03-19] VITALS: BP 122/70; PULSE 68; RESP 20; TEMP 36.8; O2SAT 94
[2020-03-19 04:00] VITALS: BP 113/69; PULSE 63; RESP 14; TEMP 36.8; O2SAT 96
--- NOTE | 2020-03-19 05:09 | NUR.SHIFT ---
Patient mainly slept throughout the night. When the patient did wake up she stated that she felt much better than she did when she came in.
--- NOTE | 2020-03-19 06:00 | USCV_ITS ---
Doris Clarke Age: 69 Gender: F : 1950 Exam Date: 03/19/2020 07:16 Ordering Phys: Desean Harrison MD Technologist: Nahum Ferguson Exam Location: [facility] Indication: CHF BP: 126 / 72 HR: 48 Rhythm: Sinus Technical Quality: Good MEASUREMENTS (Male / Female) Normal Values 2D ECHO LVOT Diameter 2.0 cm LV Ejection Fraction MOD 2C 80.3 % LV Ejection Fraction 2C AL 79.6 % LA Diameter 3.7 cm LA Width 3.9 cm LA Height 4.9 cm RA Width 3.6 cm RA Height 4.5 cm Aorta at Sinotubular Diameter 1.1 cm M-MODE LV Diastolic Diameter MM 5.6 cm 4.2 - 5.9 / 3.9 - 5.3 cm LV Systolic Diameter MM 3.8 cm LV Ejection Fraction MM Teich 59.4 % IVS Diastolic Thickness MM 1.0 cm 0.6 - 1.0 / 0.6 - 0.9 cm IVS Systolic Thickness MM 1.7 cm LVPW Diastolic Thickness MM 1.5 cm 0.6 - 1.0 / 0.6 - 0.9 cm LVPW Systolic Thickness MM 1.8 cm RV Diastolic Diameter MM 1.4 cm Aortic Annulus Diameter 3.6 cm LA Ao Ratio MM 1.2 MV E Point Septal Separation 1.2 cm DOPPLER AV Peak Velocity 201.0 cm/s LVOT Peak Velocity 132.0 cm/s AV Area Cont Eq vti 2.1 cm squared AV Area Cont Eq pk 2.1 cm squared MV Area PHT 5.0 cm squared Mitral E to A Ratio 1.4 MV E' Velocity 52.0 cm/s Mitral E to MV E' Ratio 6.5 Mitral E to LV E' Lateral Ratio 6.6 Mitral E to LV E' Septal Ratio 6.5 TR Peak Velocity 286.7 cm/s TR Peak Gradient 32.9 mmHg Right Atrial Pressure 3.0 mmHg Pulmonary Artery Systolic Pressu 35.9 mmHg FINDINGS Left Ventricle Normal left ventricular size, systolic function and wall thickness, with no regional wall motion abnormalities. Left ventricular ejection fraction is estimated at 70 %. Normal diastolic function. Right Ventricle Normal right ventricular size and systolic function, RVSP 39 mmHg. Right Atrium Normal right atrial size. Right atrial pressure estimated at 3 mm Hg. Left Atrium Mildly increased left atrial size. Mitral Valve Mildly thickened mitral valve. No mitral valve stenosis. Trace mitral valve regurgitation. Aortic Valve Structurally normal trileaflet aortic valve. No aortic valve stenosis. Mild aortic valve regurgitation. Tricuspid Valve Structurally normal tricuspid valve. No tricuspid valve stenosis. Trace tricuspid valve regurgitation. Pulmonic Valve Structurally normal pulmonic valve. No pulmonary valve stenosis. Trace pulmonary valve regurgitation. Pericardium No pericardial effusion. Aorta Normal size aortic root and proximal ascending aorta. CONCLUSIONS 1. Normal left ventricular size, systolic function and wall thickness, with no regional wall motion abnormalities. Left ventricular ejection fraction is estimated at 70 %. Normal diastolic function. 2. Normal right ventricular size and systolic function, RVSP 39 mmHg. 3. Mild aortic valve regurgitation. 4. When compared to previous echocardiogram dated 06/06/2013, tricuspid valve regurgitation seems to have decreased. Radha Zamarripa MD (Electronically Signed) Final Date: 19 March 2020 22:27 S
[2020-03-19 06:26] LABS: Blood Urea Nitrogen 18 mg/dL (8-23); Calcium 8.8 mg/dL (8.5-10.5); Carbon Dioxide 31 mmol/L (22-29); Chloride 106 mmol/L (98-107); Creatinine Clr Calc Pharmacy 66.4722; Glomerular Filtration Rate 99.1 mL/min (90-130); Glucose 94 mg/dL (65-115); Osmolality Calculated 300 mOsm/kg (285-295); Sodium 144 mmol/L (136-145)
[2020-03-19 07:30] LABS: INR 1.76 (0.8-1.2)
[2020-03-19 08:00] VITALS: BP 115/72; PULSE 65; RESP 16; TEMP 36.7; O2SAT 96
[2020-03-19] MEDS: pantoprazole DR 40 mg Tablet 20 MG PO (08:28)
[2020-03-19] MEDS: FUROsemide 40 mg Tablet 60 MG PO (08:29)
[2020-03-19] MEDS: metoprolol tartrate 25 mg Tablet 12.5 MG PO ×2 (08:29→17:51)
[2020-03-19] MEDS: potassium chloride ER 10 mEq Tablet PO (08:30)
--- NOTE | 2020-03-19 09:32 | USR_ITS ---
PROCEDURE INFORMATION: Exam: US Abdomen, Limited; Right Upper Quadrant Exam date and time: 03/19/2020 10:33 AM Age: 69 years old Clinical indication: Abdominal pain; Acute; Additional info: Ruq pain TECHNIQUE: Imaging protocol: US abdomen. Real time ultrasound with image documentation. Limited exam focused on the right upper quadrant. COMPARISON: CT abdomen pelvis wo con [id number] 03/18/2020 6:43 PM FINDINGS: Liver: Normal. No masses. Gallbladder: Cholecystectomy. Common bile duct: The common bile duct is normal with a diameter of 4.6 mm. Pancreas: Visualized pancreas is unremarkable. Right kidney: Normal. No mass. No hydronephrosis. Intraperitoneal space: No free fluid. US/US liver [id number] IMPRESSION: 1. Cholecystectomy. 2. No acute abnormality is seen in the right upper quadrant.
[2020-03-19] MEDS: TRAMadol 50 mg Tablet 25 MG PO (11:33)
[2020-03-19] MEDS: potassium chloride premix 100 ML 25 MEQ IV (11:34)
[2020-03-19 11:45] LABS: Add Urine Microscopic? NO
[2020-03-19 11:53] LABS: Bilirubin Urine Neg (Negative); Blood Urine Neg (Negative); Glucose Urine UA Norm (Normal); Ketones Urine Negative (Negative); Leukocyte Esterase Urine Negative (Negative); Nitrate Urine Negative (Negative); Protein Urine Neg (Negative); Specific Gravity, Urine 1.005 (1.005-1.030); Urine Appearance Clear (CLEAR); Urine Color Straw (Yellow); Urobilinogen Urine Norm (Negative); pH Urine 5 (5-7)
[2020-03-19 12:00] VITALS: BP 121/73; PULSE 67; RESP 20; TEMP 36.7; O2SAT 95
--- NOTE | 2020-03-19 12:45 | PC.CHAP ---
Pastoral Care Encounter/Spiritual Assessment Type of Contact [] Declined administrative law judge visit [] Patient/Family/Request visit [] Outpatient visit [] Follow-up visit [] Physician referral [] Code/Alert [X] Routine visit [] Staff referral [] Actively dying [] Patient sleeping [] Family support [] [] Out of room [] Palliative care [] [] Receiving care in room [] Pre-surgical visit [] Trauma [] Long length of stay [] ICU visit [] Other: Relational/Emotional Strength [] Patient feels connected with others/family/visitors/staff [] Distress [] Loneliness/isolation [] Abandonment Spirituality of Patient [] Person of Vera [] Attends Yazidism of their Vera [] Believes in Prayer [] Reads Bible or Confucianist materials [] There are Spiritual issues to be addressed Electrical Supervisor Interventions [] Prayer [] Active listening [] Non-anxious presence [] Spiritual/emotional support [] Crisis/trauma care [] Spiritual counseling [] Bereavement support [] Provided bereavement packet [] Provided Bible/devotional materials [] Provided toy/stuffed animal, coloring book to patient or family member [] Provided Communion [] Anointing/[place] [] Salvation [] Completed spiritual assessment [] Other: Impact on Illness or Injury [] Angry [] Fearful [] Anxious [] Often cries [] Exhaustion [] Unable to work [] Unable to attend orthodoxy [] Unable to walk/stand [] Unable to read [] Unable to drive [] Unable to eat/drink [] Unable to sleep [] Unable to be with family [] Patient intubated [] Other: Summary Time spent with patient
--- NOTE | 2020-03-19 13:19 | P.PN_ITS ---
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, but can move her left shoulder, she is bedbound, Anderson had to be placed this morning, as she has been urinating on the bed given her diuretics, she is on 2 to 3 L nasal cannula, tells me she does not use oxygen at home, no fevers, no chills, no nausea, no vomiting, no lightheadedness, dizziness, no chest pain, no shortness of breath, she is wondering when she is going home according to nurses she is having episodes of confusion, but she is alert oriented x2 to BLEs, answers most questions appropriately Vitals/I&O/Wt Last Vital Signs Temp 98.0 F 03/19/20 12:00 Pulse 67 03/19/20 12:00 Resp 20 H 03/19/20 12:00 BP 121/73 03/19/20 12:00 Pulse Ox 95 03/19/20 12:00 03/18/20 03/19/20 03/19/20 22:59 06:59 14:59 Intake Total 120 / 120 120 / 120 Balance 120 / 120 120 / 120 Weight last 48 hrs Weight 86.908 kg Weight 68.039 kg Physical Exam Const: COMMON NORMALS: no acute distress ORIENTATION/CONSCIOUSNESS: Yes awake, Yes oriented to person, Yes oriented to place and Yes confused; not oriented to time HENMT: COMMON NORMALS: normocephalic HEAD & SCALP: normocephalic Neck/C-Spine: COMMON NORMALS: no JVD Resp: COMMON NORMALS: normal respiratory effort, No retractions, No use of accessory muscles and clear to auscultation bilaterally AUSCULTATION: clear to auscultation bilaterally Cardio: COMMON NORMALS: no JVD, regular rate, regular rhythm, S1 normal heart sound present and S2 normal heart sound present RATE: regular rate RHYTHM: regular rhythm HEART SOUNDS: S1 normal heart sound present and S2 normal heart sound present GI: COMMON NORMALS: Normal to inspection, nondistended, normoactive bowel sounds present, Soft to palpation, non-tender, No hepatosplenomegaly present, no masses and no bruits PALPATION: Yes Soft to palpation and Yes No hepatosplenomegaly present Extremity: COMMON NORMALS: capillary refill normal, no clubbing, cyanosis or edema, no calf tenderness and no pedal edema Neuro: SENSORIUM/ORIENTATION: Yes oriented to person, Yes oriented to place and No oriented to time Psych: COMMON NORMALS: mental status grossly normal Urinary Catheter Management^: Anderson: Cath Placed During This Visit: yes Urinary Catheter Date of Insertion: 03/19/20 Urinary Catheter Time of Insertion: 11:21 Data : 03/18/20 14:25 03/19/20 04:41 Micro: Microbiology 03/18/20 14:25 Blood Culture - Preliminary Blood SPECIMEN COLLECTED A&P Assessment and plan (1) Generalized weakness: Status: Acute Additional A&P Information Generalized weakness after an episode of profuse diarrhea Considering history of nitrofurantoin for last 6 months I will check C. diffici le Patient has not taken any stool softeners Endorsing semisolid bowel movement Afebrile, no leukocytosis, no sepsis Patient is not able to ambulate on her own anymore, at baseline she uses walker, lower extremity lymphedema with limited ambulation, no sign of cord compression, she has good sensation on medial side of her thighs, strength 2/5 of lower extremities, no signs of stroke, CT head unremarkable, no signs of UTI, chest x- ray unremarkable, TSH B12 within normal limits Physical therapy evaluation in the morning NSTEMI; -Minimally elevated troponins likely type II, supply demand ischemia related to heart failure -Continue Lasix therapy, telemetry monitoring -Monitor for chest pain -Cardiac echocardiogram ordered Fluid overloaded, new onset CHF BNP greater than 400, Follow echocardiogram And start to assess her fluid status considering lymphedema however skin wrinkling evident, continue Lasix 40 mg daily, potassium replacement History of DVT/PE status post IVC filter placement Check INR 1.76 Daily dose Coumadin will do Elevated liver enzymes most likely due to congestive heart failure Hepatitis panel negative Ultrasound of the liver Full code Cardiac diet DVT prophylaxis not indicated due to Coumadin usage Patient will most likely will need long-term senior care placement considering worsening generalized weakness, is in agreement for now, kindly readdress in the morning was not sure about DVT/PE and indication of Coumadin, kindly reach out to PCP Dr. Juan Antonio Ghosh Medical Necessity Statement*: Patient requires hospitalization for lethargy, weakness, CHF exacerbation, requiring Lasix therapy Coding Level of Care Code Acute Consumer Insights Intern for Chg Fwd Diagnoses Generalized weakness R53.1
[2020-03-19] MEDS: warfarin 2 mg Tablet PO (14:20)
[2020-03-19 15:46] VITALS: BP 155/76; PULSE 65; RESP 18; TEMP 37; O2SAT 90
--- NOTE | 2020-03-19 16:31 | PC.NURSE ---
brought in pt's home walker
--- NOTE | 2020-03-19 18:26 | PC.NURSE ---
END OF SHIFT SUMMARY pt able to rest well today and is able to take morning and evening PO meds well. pt is very pleasant and A/Ox3. pt does require some assistance with eating and drinking. no BM today. pt is currently resting in bed watching TV with call light within reach. pt has glasses and home walker in room at bedside.
[2020-03-19 19:33] VITALS: BP 106/62; PULSE 68; RESP 19; TEMP 36.7; O2SAT 91
[2020-03-19] MEDS: ropinirole 1 mg Tablet PO (21:06)
[2020-03-20] VITALS: BP 117/56; PULSE 73; RESP 22; TEMP 36.7; O2SAT 91
[2020-03-20 03:36] LABS: Basophils # 0.1 10^3/uL (0.0-0.1); Basophils % 0.7 %; Eosinophils # 0.5 10^3/uL (0.0-0.8); Eosinophils % 5.1 %; Hematocrit 37.9 % (37.0-47.0); Hemoglobin 12.1 g/dL (11.5-15.3); Lymphocytes % 22.6 %; Mean Corpuscular HGB Conc 31.9 g/dL (30.0-36.0); Mean Corpuscular Hemoglobin 30.7 pg (28.0-34.0); Mean Corpuscular Volume 96.2 fL (81-99); Mean Platelet Volume 10.5 fL (7.4-10.4); Neutrophils # 5.38 10^3/uL (1.8-7.7); Neutrophils % 60.2 %; Nucleated Red Blood Cells % 0 %; Platelet Count 202 10^3/cmm (130-400); Red Blood Count 3.94 10^6/uL (4.1-5.3); Red Cell Distribution Width 13.2 % (12.1-15.1); White Blood Count 8.9 10^3/uL (4.0-10.0)
[2020-03-20 03:55] LABS: Alanine Aminotransferase 121 U/L (0-33); Albumin Level 3.2 g/dL (3.5-5.2); Alkaline Phosphatase 21 IU/L (35-105); Aspartate Amino Transferase 49 U/L (0-32); Blood Urea Nitrogen 18 mg/dL (8-23); Carbon Dioxide 34 mmol/L (22-29); Chloride 101 mmol/L (98-107); Creatinine Clr Calc Pharmacy 66.4722; Globulin 3.1 g/dL (1.3-4.6); Glucose 109 mg/dL (65-115); Magnesium 1.7 mg/dL (1.7-2.3); Osmolality Calculated 296 mOsm/kg (285-295); Phosphorus 3.4 mg/dL (2.5-4.5); Sodium 142 mmol/L (136-145); Total Bilirubin 0.6 mg/dL (0.15-1.2); Total Protein 6.3 g/dL (6.6-8.7)
[2020-03-20 03:56] LABS: Anion Gap 10.6 (5-19); Potassium 3.6 mmol/L (3.5-5.1)
[2020-03-20 04:00] VITALS: BP 111/70; PULSE 60; RESP 20; TEMP 36.7; O2SAT 98
[2020-03-20 07:56] VITALS: BP 111/61; PULSE 63; RESP 18; TEMP 37.2; O2SAT 94
[2020-03-20] MEDS: potassium chloride ER 10 mEq Tablet PO (08:04)
[2020-03-20] MEDS: metoprolol tartrate 25 mg Tablet 12.5 MG PO ×2 (08:04→18:10)
[2020-03-20] MEDS: pantoprazole DR 40 mg Tablet 20 MG PO (08:04)
[2020-03-20] MEDS: FUROsemide 40 mg Tablet 60 MG PO (08:05)
[2020-03-20 11:40] VITALS: BP 121/70; PULSE 62; RESP 19; TEMP 36.7; O2SAT 92
--- NOTE | 2020-03-20 13:01 | P.PN_ITS ---
Subjective Subjective: Interval history: This morning patient was evaluated, she sitting up in bed, smiling, wondering when she is going to go home, she has no particular complaints, no chest pain, no shortness of breath, she did say that she had 1 loose bowel movement overnight, with abdominal pain, resolved after, no bloody or black stools, no lightheadedness no dizziness This afternoon, patient could not work with physical therapy, has had generalized weakness, recommend half-way placement, patient's records have been faxed over to [facility] Vitals/I&O/Wt Last Vital Signs Temp 98.0 F 03/20/20 11:40 Pulse 62 03/20/20 11:40 Resp 19 H 03/20/20 11:40 BP 121/70 03/20/20 11:40 Pulse Ox 92 03/20/20 11:40 03/19/20 03/20/20 03/20/20 22:59 06:59 14:59 Intake Total 218 / 818 760 / 760 Output Total 1800 / 1800 500 / 2300 950 / 950 Balance -1582 / -982 -500 / -1482 -190 / -190 Weight last 48 hrs Weight 86.908 kg Physical Exam Const: COMMON NORMALS: no acute distress GENERAL APPEARANCE: cooperative ORIENTATION/CONSCIOUSNESS: Yes awake, Yes oriented to person and Yes oriented to place; not oriented to time HENMT: COMMON NORMALS: normocephalic HEAD & SCALP: normocephalic Neck/C-Spine: COMMON NORMALS: no JVD Resp: COMMON NORMALS: normal respiratory effort, No retractions, No use of accessory muscles and clear to auscultation bilaterally AUSCULTATION: clear to auscultation bilaterally Cardio: COMMON NORMALS: no JVD, regular rate, regular rhythm, S1 normal heart sound present and S2 normal heart sound present RATE: regular rate RHYTHM: regular rhythm HEART SOUNDS: S1 normal heart sound present and S2 normal heart sound present GI: COMMON NORMALS: Normal to inspection, nondistended, normoactive bowel sounds present, Soft to palpation, non-tender, No hepatosplenomegaly present, no masses and no bruits PALPATION: Yes Soft to palpation and Yes No hepatosplenomegaly present Extremity: COMMON NORMALS: capillary refill normal, no clubbing, cyanosis or edema, no calf tenderness and no pedal edema NARRATIVE EXTREMITY EXAM: Left upper extremity flexion contracture, contracture at the level of the hand Bilateral lower extremities, minimal pitting edema Neuro: SENSORIUM/ORIENTATION: Yes oriented to person, Yes oriented to place and No oriented to time Psych: COMMON NORMALS: mental status grossly normal Urinary Catheter Management^: Anderson: Cath Placed During This Visit: yes Reason for Continuing Indwelling Catheter: Acute Urinary Retention or Obstruction Urinary Catheter Date of Insertion: 03/19/20 Urinary Catheter Time of Insertion: 11:21 Data : 03/20/20 03:09 03/20/20 03:09 Micro: Microbiology 03/20/20 05:50 C.difficile Toxin B Gene (PCR) - Final Stool - Stool Aspirate A&P Assessment and plan (1) Generalized weakness: Status: Acute Additional A&P Information Generalized weakness after an episode of profuse diarrhea One episode of diarrhea overnight, C. difficile negative, stool studies pending Patient has not taken any stool softeners Endorsing semisolid bowel movement Afebrile, no leukocytosis, no sepsis Patient is not able to ambulate on her own anymore, at baseline she uses walker, lower extremity lymphedema with limited ambulation, no sign of cord compression, she has good sensation on medial side of her thighs, strength 2/5 of lower extremities, no signs of stroke, CT head unremarkable, no signs of UTI, chest x- ray unremarkable, TSH B12 within normal limits Vitals within normal limits, no fevers, blood pressure within normal limits, saturating high 90s on 2 L Likely weakness secondary to deconditioning, chronic stroke, with left upper extremity chronic flexion contracture Physical therapy: patient is unable to participate with physical therapy due to generalized weakness, recommend half-way placement at [place], records faxed NSTEMI; -Minimally elevated troponins likely type II, supply demand ischemia related to heart failure -Continue Lasix therapy, telemetry monitoring -Monitor for chest pain -Cardiac echocardiogram shows an ejection fraction of 70%, no regional wall motion abnormalities, right ventricular size and systolic function 39 mmHg Fluid overloaded, likely diastolic CHF BNP greater than 400, Lasix 60 mg daily And start to assess her fluid status considering lymphedema however skin wrinkling evident, continue Lasix 60 mg daily, potassium replacement History of DVT/PE status post IVC filter placement Daily INR Daily dose Coumadi Elevated liver enzymes most likely due to congestive heart failure Hepatitis panel negative Ultrasound of the liver unremarkable Full code Cardiac diet DVT prophylaxis not indicated due to Coumadin usage Patient will most likely will need long-term half-way placement considering worsening generalized weakness, is in agreement for now, kindly readdress in the morning was not sure about DVT/PE and indication of Coumadin, kindly reach out to PCP Dr. Romano Attestations Medical Necessity Statement*: Patient requires hospitalization due to generalized weakness, CHF, awaiting transfer to [facility] Coding Level of Care Code Acute Nuclear Power Plant Engineer for Martín Curiel Diagnoses Generalized weakness R53.1
[2020-03-20] MEDS: warfarin 2 mg Tablet PO (14:03)
[2020-03-20 15:35] VITALS: BP 172/83; PULSE 72; RESP 15; TEMP 36.5; O2SAT 93
[2020-03-20 19:14] VITALS: BP 120/60; PULSE 77; RESP 20; TEMP 36.6; O2SAT 94
[2020-03-20] MEDS: ropinirole 1 mg Tablet PO (20:07)
[2020-03-21] VITALS (7 sets, daily range): BP systolic 104–144; BP diastolic 68–75; PULSE 56–76; RESP 14–20; TEMP 36.4–36.9; O2SAT 92–96
[2020-03-21 05:12] LABS: Basophils # 0.1 10^3/uL (0.0-0.1); Basophils % 0.6 %; Eosinophils # 0.4 10^3/uL (0.0-0.8); Eosinophils % 5.6 %; Hematocrit 37.9 % (37.0-47.0); Hemoglobin 12.4 g/dL (11.5-15.3); Lymphocytes # 1.9 10^3/uL (0.8-4.8); Lymphocytes % 24.2 %; Mean Corpuscular HGB Conc 32.7 g/dL (30.0-36.0); Mean Corpuscular Hemoglobin 30.6 pg (28.0-34.0); Mean Corpuscular Volume 93.6 fL (81-99); Mean Platelet Volume 10.4 fL (7.4-10.4); Monocytes # 0.9 10^3/uL (0.2-0.9); Monocytes % 11.4 %; Neutrophils # 4.45 10^3/uL (1.8-7.7); Neutrophils % 57.7 %; Nucleated Red Blood Cells % 0 %; Platelet Count 246 10^3/cmm (130-400); Red Blood Count 4.05 10^6/uL (4.1-5.3); Red Cell Distribution Width 13.2 % (12.1-15.1); White Blood Count 7.7 10^3/uL (4.0-10.0)
[2020-03-21 05:35] LABS: INR 1.66 (0.8-1.2)
[2020-03-21 05:48] LABS: Alanine Aminotransferase 83 U/L (0-33); Albumin Level 3.3 g/dL (3.5-5.2); Alkaline Phosphatase 18 IU/L (35-105); Anion Gap 12.5 (5-19); Aspartate Amino Transferase 31 U/L (0-32); Blood Urea Nitrogen 15 mg/dL (8-23); Calcium 9.1 mg/dL (8.5-10.5); Carbon Dioxide 33 mmol/L (22-29); Chloride 98 mmol/L (98-107); Creatinine Clr Calc Pharmacy 66.4722; Globulin 3.3 g/dL (1.3-4.6); Glucose 110 mg/dL (65-115); Magnesium 1.9 mg/dL (1.7-2.3); Osmolality Calculated 291 mOsm/kg (285-295); Phosphorus 4.2 mg/dL (2.5-4.5); Potassium 3.5 mmol/L (3.5-5.1); Sodium 140 mmol/L (136-145); Total Bilirubin 0.7 mg/dL (0.15-1.2); Total Protein 6.6 g/dL (6.6-8.7)
[2020-03-21] MEDS: FUROsemide 40 mg Tablet 60 MG PO (07:53)
[2020-03-21] MEDS: metoprolol tartrate 25 mg Tablet 12.5 MG PO ×2 (08:02→17:33)
[2020-03-21] MEDS: pantoprazole DR 40 mg Tablet 20 MG PO (08:02)
[2020-03-21] MEDS: potassium chloride ER 10 mEq Tablet PO (08:02)
--- NOTE | 2020-03-21 13:47 | P.PN_ITS ---
Subjective Subjective: Interval history: Doris reports she is doing okay. Denies any shortness of breath currently. History and physical and progress notes reviewed. Medications: Reviewed: Yes Vitals/I&O/Wt Last Vital Signs Temp 98.3 F 03/21/20 12:00 Pulse 76 03/21/20 12:00 Resp 20 H 03/21/20 12:00 BP 115/75 03/21/20 12:00 Pulse Ox 95 03/21/20 12:00 03/20/20 03/21/20 03/21/20 22:59 06:59 14:59 Intake Total 360 / 1120 120 / 1240 840 / 840 Output Total 750 / 1700 250 / 1950 750 / 750 Balance -390 / -580 -130 / -710 90 / 90 Physical Exam Narrative: EXAM NARRATIVE: General exam is a white female, in no apparent distress Cardiovascular regular rate and rhythm without murmur Lungs clear but with diminished breath sounds bilaterally Abdomen is obese, positive bowel sounds, nontender Extremities trace bilateral edema. Lymphedema noted. Urinary Catheter Management^: Anderson: Cath Placed During This Visit: yes Reason for Continuing Indwelling Catheter: Acute Urinary Retention or Ob struction Urinary Catheter Date of Insertion: 03/19/20 Urinary Catheter Time of Insertion: 11:21 Data : 03/21/20 04:25 03/21/20 04:25 Micro: Microbiology 03/20/20 05:50 Stool Lactoferrin - Final Stool Enteric Pathogens (PCR) - Final C.difficile Toxin B Gene (PCR) - Final Occult Blood (FIT) - Final A&P Assessment and plan (1) Generalized weakness: Significant generalized weakness, may require nursing facility placement TSH and B12 are normal No evidence of UTI Status: Acute Additional A&P Information Elevated troponin. Consistent with type II elevation. Echocardiogram demonstrates preserved EF Acute diastolic heart failure. Currently appears compensated. History of DVT/PE. Currently on Coumadin. INR subtherapeutic. Mild transaminitis. Hepatitis panel negative. Ultrasound unremarkable. Full code DVT prophylaxis not indicated due to Coumadin usage Continue current management pending placement. Attestations Medical Necessity Statement*: Needs continued hospitalization pending jorge a cement Coding Level of Care Code Acute International Marketing Executive for Chg Fwd Diagnoses Generalized weakness R53.1
[2020-03-21] MEDS: warfarin 2 mg Tablet PO (14:47)
--- NOTE | 2020-03-21 14:57 | PC.NURSE ---
Attempted to call patient's at this time. Left him a message to return a call here [place] [facility]
[2020-03-21] MEDS: warfarin 1 mg Tablet PO (17:33)
--- NOTE | 2020-03-21 18:56 | PC.NURSE ---
Report to Rosanna PETERSON
[2020-03-21] MEDS: ropinirole 1 mg Tablet PO (20:58)
[2020-03-21] MEDS: TRAMadol 50 mg Tablet 25 MG PO (23:56)
[2020-03-22 03:11] VITALS: BP 131/78; PULSE 62; RESP 17; TEMP 36.7; O2SAT 95
[2020-03-22 05:45] LABS: Basophils # 0.1 10^3/uL (0.0-0.1); Basophils % 0.8 %; Eosinophils # 0.5 10^3/uL (0.0-0.8); Eosinophils % 5.5 %; Hematocrit 41.5 % (37.0-47.0); Hemoglobin 13.3 g/dL (11.5-15.3); Lymphocytes # 2.7 10^3/uL (0.8-4.8); Lymphocytes % 29.3 %; Mean Corpuscular Hemoglobin 30.4 pg (28.0-34.0); Mean Corpuscular Volume 94.7 fL (81-99); Mean Platelet Volume 10.3 fL (7.4-10.4); Monocytes # 1.2 10^3/uL (0.2-0.9); Monocytes % 12.8 %; Neutrophils # 4.72 10^3/uL (1.8-7.7); Neutrophils % 51.1 %; Nucleated Red Blood Cells % 0 %; Platelet Count 264 10^3/cmm (130-400); Red Blood Count 4.38 10^6/uL (4.1-5.3); Red Cell Distribution Width 13.5 % (12.1-15.1); White Blood Count 9.2 10^3/uL (4.0-10.0)
[2020-03-22 06:21] LABS: Alanine Aminotransferase 66 U/L (0-33); Albumin Level 3.5 g/dL (3.5-5.2); Alkaline Phosphatase 19 IU/L (35-105); Anion Gap 11.6 (5-19); Aspartate Amino Transferase 24 U/L (0-32); Blood Urea Nitrogen 22 mg/dL (8-23); Calcium 9.3 mg/dL (8.5-10.5); Carbon Dioxide 34 mmol/L (22-29); Chloride 100 mmol/L (98-107); Creatinine Clr Calc Pharmacy 66.4722; Globulin 3.4 g/dL (1.3-4.6); Glomerular Filtration Rate 71.1 mL/min (90-130); Glucose 113 mg/dL (65-115); Osmolality Calculated 298 mOsm/kg (285-295); Potassium 3.6 mmol/L (3.5-5.1); Sodium 142 mmol/L (136-145); Total Bilirubin 0.6 mg/dL (0.15-1.2); Total Protein 6.9 g/dL (6.6-8.7)
[2020-03-22 06:52] LABS: INR 1.76 (0.8-1.2)
[2020-03-22 08:00] VITALS: BP 150/78; PULSE 55; RESP 18; TEMP 36.2; O2SAT 98
[2020-03-22] MEDS: metoprolol tartrate 25 mg Tablet 12.5 MG PO ×2 (09:51→17:10)
[2020-03-22] MEDS: FUROsemide 40 mg Tablet 60 MG PO (09:52)
[2020-03-22] MEDS: potassium chloride ER 10 mEq Tablet PO (09:52)
[2020-03-22] MEDS: pantoprazole DR 40 mg Tablet 20 MG PO (09:52)
--- NOTE | 2020-03-22 10:27 | PC.SOCIAL ---
Pg 2 IMM Explained to pt Pg 2 IMM. No questions voiced. Provided pt a copy. Signed, dated, & timed a copy & placed in chart.
[2020-03-22 12:00] VITALS: BP 128/65; PULSE 58; RESP 18; TEMP 36.8
[2020-03-22] MEDS: warfarin 3 mg Tablet PO (14:32)
[2020-03-22 15:24] VITALS: BP 147/84; PULSE 64; RESP 18; TEMP 36.9
--- NOTE | 2020-03-22 15:41 | P.PN_ITS ---
Subjective Subjective: Interval history: No new concerns overnight. Patient without any significant complaints. Medications: Reviewed: Yes Vitals/I&O/Wt Last Vital Signs Temp 98.4 F 03/22/20 15:24 Pulse 64 03/22/20 15:24 Resp 18 03/22/20 15:24 BP 147/84 03/22/20 15:24 Pulse Ox 98 03/22/20 08:00 03/22/20 03/22/20 03/22/20 06:59 14:59 22:59 Intake Total 240 / 1280 240 / 240 Output Total 380 / 1730 980 / 980 Balance -140 / -450 -740 / -740 Physical Exam Narrative: EXAM NARRATIVE: General exam no distress Cardiovascular regular rate and rhythm without murmur Lungs clear but with diminished breath sounds bilaterally Abdomen is obese, positive bowel sounds, nontender Extremities trace bilateral edema. Lymphedema noted. Urinary Catheter Management^: Anderson: Cath Placed During This Visit: yes, but has since been removed by the nurse Reason for Continuing Indwelling Catheter: Decision to DC Catheter Urinary Catheter Date of Insertion: 03/19/20 Urinary Catheter Time of Insertion: 11:21 Date Urinary Catheter Removed: 03/22/20 Time Urinary Catheter Discontinued: 06:11 Data : 03/22/20 04:50 03/22/20 04:50 Micro: Microbiology 03/20/20 05:50 Stool Lactoferrin - Final Stool Enteric Pathogens (PCR) - Final Parasite Antigen Panel - Final C.difficile Toxin B Gene (PCR) - Final Occult Blood (FIT) - Final A&P Assessment and plan (1) Generalized weakness: Significant generalized weakness, may require nursing facility placement TSH and B12 are normal No evidence of UTI Awaiting placement Status: Acute Additional A&P Information Elevated troponin. Consistent with type II elevation. Echocardiogram demonstrates preserved EF Acute diastolic heart failure. Currently appears compensated. History of DVT/PE. Currently on Coumadin. INR subtherapeutic but increasing Mild transaminitis. Hepatitis panel negative. Ultrasound unremarkable. Full code DVT prophylaxis not indicated due to Coumadin usage Continue current management pending placement. Attestations Medical Necessity Statement*: Needs continued hospitalization pending placement. Coding Level of Care Code Acute Brim Edge Trimmer for Chg Fwd Diagnoses Generalized weakness R53.1
[2020-03-22 20:00] VITALS: BP 138/70; PULSE 66; RESP 20; TEMP 36.6; O2SAT 95
[2020-03-22] MEDS: ropinirole 1 mg Tablet PO (20:09)
[2020-03-22 23:16] VITALS: BP 130/73; PULSE 65; RESP 18; TEMP 36.5; O2SAT 92
[2020-03-23] MEDS: TRAMadol 50 mg Tablet 25 MG PO (03:04)
[2020-03-23 03:16] VITALS: BP 137/82; PULSE 65; RESP 17; TEMP 36.9; O2SAT 96
--- NOTE | 2020-03-23 04:10 | PC.NURSE ---
Small blanchable, reddened area in the sacral area of buttocks. Nurse Rosanna placed an optifoam dressing and applied barrier cream to skin fold areas to prevent any further skin breakdown. She is in so much generalized body pain. She cries and begs not to be repositioned. Her heels are floated and she needs encouragement to move her legs/feet. She has bilateral lymphedema in her legs. It is nonpitting.
[2020-03-23 05:40] LABS: INR 1.86 (0.8-1.2)
[2020-03-23 07:31] VITALS: BP 147/68; PULSE 57; RESP 20; TEMP 36.8; O2SAT 95
--- NOTE | 2020-03-23 07:44 | PC.NURSE ---
patient's called for update. copy writer updated patient's about patient's night and transferred call to patient. copy writer held phone for patient to speak with .
--- NOTE | 2020-03-23 07:45 | PC.NURSE ---
patient had multiple rounds of incont last night and yesterday. patient had pressure area noted to sacrum and bruising. bruising is also noted to BUE. Redness noted to abd folds, under left breast and left axilla.
[2020-03-23] MEDS: FUROsemide 40 mg Tablet 60 MG PO (09:20)
[2020-03-23] MEDS: pantoprazole DR 40 mg Tablet 20 MG PO (09:20)
[2020-03-23] MEDS: potassium chloride ER 10 mEq Tablet PO (09:20)
[2020-03-23] MEDS: metoprolol tartrate 25 mg Tablet 12.5 MG PO ×2 (09:20→18:12)
[2020-03-23 11:02] VITALS: BP 143/78; PULSE 59; RESP 18; TEMP 36.9; O2SAT 100
[2020-03-23] MEDS: warfarin 3 mg Tablet PO (13:33)
--- NOTE | 2020-03-23 13:49 | PM.DCS ---
Discharge Providers Date of Admission: 03/18/20 20:29 Date of Discharge: March 23, 2020 Attending Provider at Admission: Desean Harrison MD Attending Provider at Discharge: Pop Gonsalves MD Diagnoses at Discharge Discharge Diagnosis (1) Generalized weakness: Status: Acute Problem details: Will discharge to long-term facility Reason for Visit Reason for Visit: GENERAL WEAKNESS/ POSSIBLE UTI Hospital Course Discharge Summary: Doris is a 69-year-old female with past history of CVA who presented to the hospital with complaints of lethargy fatigue and increased weakness. Family was not able to take care of her at home. She had been having some diarrhea. She was placed in the hospital and rehydrated. CT head was unremarkable. No evidence of urinary tract infection was noted. She was diuresed secondary to concerns of acute congestive heart failure. She remained stable the rest of her hospital stay. Thyroid testing and B12 levels were normal. Heart failure was compensated and she was changed to oral medication. Echocardiogram demonstrated a preserved EF. Troponin did not indicate acute NE. On March 23 it was thought she could discharge to nursing facility for continued care. Physical Exam Narrative: EXAM NARRATIVE: General exam no apparent distress Cardiovascular regular rate and rhythm without murmur Lungs clear Abdomen is soft with positive bowel sounds Extremities with lymphedema. Urinary Catheter Management^: Anderson: Cath Placed During This Visit: yes, but has since been removed by the nurse Reason for Continuing Indwelling Catheter: Decision to DC Catheter Urinary Catheter Date of Insertion: 03/19/20 Urinary Catheter Time of Insertion: 11:21 Date Urinary Catheter Removed: 03/22/20 Time Urinary Catheter Discontinued: 06:11 Discharge Data Data Completed and Pending: Completed Studies During Hospitalization Category Date Time Status CT abdomen pelvis wo con [id number] Urge nt Cat Scan 03/18/20 17:[address] head wo con* 7 0450 Urgent Cat Scan 03/18/20 13:53 Completed XR chest 1V ольга ble [id number] Stat Exams 03/18/20 12:58 Completed CV echo complete* [id number] Routine Ultrasound 03/19/20 06:00 Completed US liver 12077 Ro utine Ultrasound 03/19/20 09:32 Completed Pending at discharge Category Date Time Status Blood Culture Sta t Lab 03/18/20 14:25 Results Labs from last 24 hours 03/23/20 04:53 PT 22.10 H INR 1.86 H Vitals: Last Vital Signs Temp 98.5 F 03/23/20 11:02 Pulse 59 L 03/23/20 11:02 Resp 18 03/23/20 11:02 BP 143/78 03/23/20 11:02 Pulse Ox 100 03/23/20 11:02 Discharge Plan Discharge Patient Disposition: Xfer SNF Condition: Stable Prescriptions: New Jantoven 3 mg Tablet 3 mg PO SuTuWeFrSa@1400 Qty: 16 RF: 0 warfarin 2 mg Tablet 2 mg PO MoTh@1400 Qty: 8 RF: 0 furosemide 40 mg Tablet 60 mg PO DAILY@0800 Qty: 45 RF: 0 Continued atorvastatin 40 mg tablet 40 mg PO BEDTIME RF: 0 nitrofurantoin macrocrystal 50 mg capsule 50 mg PO DAILY RF: 0 ropinirole 1 mg tablet See Rx Instructions .ROUTE .COMPLEX RF: 0 tizanidine 4 mg tablet 4 mg PO TID PRN (Reason: Muscle Spasm) RF: 0 tramadol 50 mg tablet 50 - 100 mg PO QID PRN (Reason: Pain) RF: 0 citalopram 20 mg tablet 20 mg PO DAILY RF: 0 trazodone 100 mg tablet 100 mg PO BEDTIME RF: 0 Iron (ferrous sulfate) 325 mg (65 mg iron) Tablet 325 mg PO DAILY RF: 0 omeprazole 20 mg capsule,delayed release(DR/EC) 20 mg PO DAILY RF: 0 oxybutynin chloride 5 mg tablet 5 mg PO BID RF: 0 metoprolol tartrate 25 mg tablet 12.5 mg PO BID RF: 0 Discontinued warfarin 3 mg tablet See Rx Instructions .ROUTE .COMPLEX RF: 0 amitriptyline 25 mg tablet 25 mg PO BEDTIME RF: 0 warfarin 2 mg tablet See Rx Instructions .ROUTE .COMPLEX RF: 0 furosemide 20 mg tablet 20 mg PO BID RF: 0 diazepam 5 mg tablet 5 mg PO BID PRN (Reason: unknown) RF: 0 Discharge Orders: Discharge Order (Routine); Ordered 03/18/20 Ordered By: Ld Orozco Referrals: [facility] [Outside] Efren Romano MD [Family Provider] - 4-7 days (Please call Chandan Sylvester on Saturday to schedule a follow up appointment to be seen within a week.) Discharge Diet: Regular Discharge Activity: Increase activity as tolerated Patient Instructions: Acute Headache (ED), Weakness (Generalized) Activity Restrictions/Additional Instructions: Follow-up with physician at long-term facility in 3 to 4 days INR 3 days, BMP 3 days Discharge Attestations Time Spent in Discharge Care*: greater than 30 min Quality Metrics Clinical Quality Measures During this hospital stay, did patient experience: None Coding Level of Care Code Acute Aerodynamicist for Chg Fwd Diagnoses Generalized weakness R53.1
[2020-03-23 15:25] VITALS: BP 121/67; PULSE 57; RESP 18; TEMP 36.8; O2SAT 91
--- NOTE | 2020-03-23 16:11 | PC.NURSE ---
called report to [facility] and spoke with JOHN Walters
--- NOTE | 2020-03-23 18:42 | PC.NURSE ---
patient taken to [facility] via wheelchair by transport. SNF packet sent with route delivery driver.
[2020-03-23 18:43] VITALS: BP 121/67; PULSE 57; RESP 18; TEMP 36.8; O2SAT 91
== END 2020-03-23 18:43 | disposition skilled nursing facility (03) ==
LOC: ER 20:43 → MEDSURG 20:57
PROVIDERS: Family Medicine; Physician Assistant; Admitting Provider Internal Medicine; Family Provider Family Medicine; Visit Provider Internal Medicine
DX: R53.1 Weakness (principal); I69.954 Hemiplegia and hemiparesis following unspecified cerebrovascular disease affecting left non-dominant side; Z86.718 Personal history of other venous thrombosis and embolism; Z79.01 Long term (current) use of anticoagulants; E78.5 Hyperlipidemia, unspecified; Z87.891 Personal history of nicotine dependence; R79.89 Other specified abnormal findings of blood chemistry; I13.0 Hypertensive heart and chronic kidney disease with heart failure and stage 1 through stage 4 chronic kidney disease, or unspecified chronic kidney disease; N18.2 Chronic kidney disease, stage 2 (mild); I50.30 Unspecified diastolic (congestive) heart failure; R19.7 Diarrhea, unspecified
CPT/HCPCS: 12345; 36415; 51702; 70450; 71045; 74176; 76705; 80048; 80053; 81001; 81003; 82274; 83036; 83630; 83735; 83880; 84100; 84443; 84484; 85025; 85610; 86705; 86706; 86709; 86803; 87040; 87340; 87493; 87506; 93005; 93306; 96365; 96366; 97110; 97161; 97530; 99283; 99285; G0378; J3480

== ENCOUNTER 2020-12-30 18:02 | Inpatient (IN) | payer MEDICARE, MEDICAID, SELFPAY ==
[2020-12-30 18:09] VITALS: BP 121/50; PULSE 88; RESP 18; TEMP 36.7; O2SAT 96; BMI 29.2
--- NOTE | 2020-12-30 18:22 | XRR_ITS ---
PROCEDURE INFORMATION: Exam: XR Left Knee Exam date and time: 12/30/2020 6:22 PM Age: 70 years old Clinical indication: Injury or trauma; Blunt trauma; Injury details: Fall x travel pta. Pain, swelling, and bruising in left knee TECHNIQUE: Imaging protocol: XR Left knee. Views: 3 views. COMPARISON: No relevant prior studies available. FINDINGS: Bones/joints: Displaced spiral fracture of the distal femoral diaphysis. Moderate to severe degenerative narrowing of the joint space of the knee. Soft tissues: Normal. XR/XR knee LT 3V* [id number] IMPRESSION: Displaced spiral fracture of the distal femur.
[2020-12-30 18:23] VITALS: O2SAT 96
--- NOTE | 2020-12-30 18:25 | CTR_ITS ---
PROCEDURE INFORMATION: Exam: CT Cervical Spine Without Contrast Exam date and time: 12/30/2020 6:25 PM Age: 70 years old Clinical indication: Injury or trauma; Blunt trauma; Patient HX: Fall from standing; Additional info: Fall, head injury TECHNIQUE: Imaging protocol: Computed tomography images of the cervical spine without contrast. Radiation optimization: All CT scans at this facility use at least one of these dose optimization techniques: automated exposure control; mA and/or kV adjustment per patient size (includes targeted exams where dose is matched to clinical indication); or iterative reconstruction. COMPARISON: CT head wo con* [id number] 03/18/2020 2:28 PM RADIATION DOSE METRICS: Total DLP (mGy-cm): 631.69 FINDINGS: Bones/joints: No acute fracture. Normal alignment. Discs/Spinal canal/Neural foramina: No significant disc protrusion. No severe spinal canal stenosis. No significant neural foraminal narrowing. Lungs: Lung apices are normal. Soft tissues: Unremarkable. CT/CT cervical spin wo con* [id number] IMPRESSION: No acute osseous abnormalities of the cervical spine. Radiation Dose CTDIVOL = (mGy): DLP = 631.69 (mGy-cm)
--- NOTE | 2020-12-30 18:25 | CTR_ITS ---
PROCEDURE INFORMATION: Exam: CT Head Without Contrast Exam date and time: 12/30/2020 6:25 PM Age: 70 years old Clinical indication: Injury or trauma; Blunt trauma (contusions or hematomas); Without loss of consciousness; Patient HX: Fall from standing; Additional info: Fall, head injury TECHNIQUE: Imaging protocol: Computed tomography of the head without contrast. Radiation optimization: All CT scans at this facility use at least one of these dose optimization techniques: automated exposure control; mA and/or kV adjustment per patient size (includes targeted exams where dose is matched to clinical indication); or iterative reconstruction. COMPARISON: CT head wo con* [id number] 03/18/2020 2:28 PM RADIATION DOSE METRICS: Total DLP (mGy-cm): 1008.75 FINDINGS: Brain: No hemorrhage. Mild diffuse cerebral atrophy. No cerebral edema. No mass effect or midline shift. Cerebral ventricles: No ventriculomegaly. Paranasal sinuses: Visualized sinuses are unremarkable. No fluid levels. Mastoid air cells: Visualized mastoid air cells are well aerated. Bones/joints: Unremarkable. No acute fracture. Soft tissues: Unremarkable. CT/CT head wo con* [id number] IMPRESSION: No acute intracranial abnormality. Radiation Dose CTDIVOL = (mGy): DLP = 1008.75 (mGy-cm)
--- NOTE | 2020-12-30 18:51 | ED_ITS ---
HPI - Fall General: Chief Complaint: Fall Stated Complaint: FALL/ L KNEE PAIN Time Seen by Provider: 12/30/20 18:26 Source: patient and EMS Mode of arrival: EMS Limitations: no limitations History of Present Illness: HPI Narrative: 70-year-old female who states she tripped and fell just prior to arrival. She states she landed on her left knee and hit her head as well. She states she has not been able ambulate and has severe pain in her left knee. States pain is an 8 out of 10. She had a history of CVA years ago and is currently on Coumadin for that. Denies any neck pain. Associated symptoms-after fall: Denies abdominal pain, chest pain, headache(s) or neck pain Review of Systems Const: Denies: fever(s), chills, body aches or change in appetite Eyes: Denies: blurry vision or eye discomfort ENMT: Denies: throat pain or dental pain Card: Denies: chest pain Resp: Denies: dyspnea GI: Denies: abdominal pain, nausea, vomiting or diarrhea : Denies: dysuria Musc: Denies: neck pain or back pain Skin/Breast: Denies: rash Neuro: Denies: headache(s) Psych: Denies: depression Costa/Lymph: Denies: easy bruising All/Imm: Denies: urticaria PFSH ED PFSH: Medical History (Updated 12/30/20 @ 21:35 by Ginny Bird MD) Chronic anemia Chronic antibiotic suppression Has been taking nitrofurantoin for last 6 months as per the Chronic anticoagulation Coumadin 2 and 3mg daily depending on INR Chronic kidney disease, stage II (mild) CVA (cerebral vascular accident) Dyslipidemia Elevated hemidiaphragm Hypertension Left-sided weakness Lymphedema Moderate pulmonary arterial systolic hypertension Presence of IVC filter Venous stasis dermatitis Surgical History H/O shoulder surgery History of hip surgery History of hysterectomy S/P cholecystectomy Family History Other CAD (coronary artery disease) Hypertension Stroke Social History Smoking and tobacco status: former smoker Alcohol intake: never Household members: spouse Housing: House Physical Exam Const: COMMON NORMALS: no acute distress, patient oriented x3 and healthy appearing HENMT: COMMON NORMALS: normocephalic HEAD & SCALP: normocephalic OTHER: Contusion to left forehead Eye: COMMON NORMALS: Equal, round and reactive pupils present and EOMs intact bilaterally PUPIL: Yes Equal, round and reactive pupils present Neck/C-Spine: COMMON NORMALS: full ROM and supple Chest: COMMONS NORMALS: normal inspection of the chest and normal palpation of entire chest wall Resp: COMMON NORMALS: normal respiratory effort, No retractions, No use of accessory muscles and clear to auscultation bilaterally AUSCULTATION: clear to auscultation bilaterally Cardio: COMMON NORMALS: regular rate, regular rhythm and No murmurs present (Cardio) RATE: regular rate RHYTHM: regular rhythm GI: COMMON NORMALS: Normal to inspection, nondistended, normoactive bowel sounds present, Soft to palpation, non-tender and no masses PALPATION: Yes Soft to palpation Extremity: COMMON NORMALS: normal to inspection and full ROM OTHER: Swelling and tenderness left knee distal pulses and sensation are intact Neuro: COMMON NORMALS: patient oriented x3, moves all extremities and no focal motor deficits Psych: COMMON NORMALS: mental status grossly normal, Normal thought process present and cooperative THOUGHT PROCESS: Normal thought process present Skin: COMMON NORMALS: no rashes or lesions noted and no wounds GENERAL SKIN EXAM: no rashes or lesions noted Course Vital Signs: Vital signs: Vital Signs Temperature 98.0 F 12/30/20 18:09 Pulse Rate 88 12/30/20 18:09 Respiratory Rate 18 12/30/20 18:09 Blood Pressure 121/50 12/30/20 18:09 Pulse Oximetry 96 12/30/20 18:23 MDM - Fall MDM Narrative: Medical decision making narrative: Patient presents here with a fall and does have a distal femur fracture. Patient's head CT here is normal. Spoke to Dr. Carey who is consulted and the hospitalist is admitting. Patient's been stable while here. She has been neurovascularly intact. She is able to move her foot. Lab Data: Labs: Lab Results 12/30/20 12/30/20 12/30/20 Range/Units 18:52 18:52 18:52 WBC 14.3 H (4.0-10.0) 10^3/ uL RBC 3.89 L (4.1-5.3) 10^6/u L Hgb 11.9 (11.5-15.3) g/dL Hct 38.0 (37.0-47.0) % MCV 97.7 (81-99) fL MCH 30.6 (28.0-34.0) pg MCHC 31.3 (30.0-36.0) g/dL RDW 13.4 (12.1-15.1) % Plt Count 205 (130-400) 10^3/c mm MPV 10.7 H (7.4-10.4) fL Neut % (Auto) 80.7 % Lymph % (Auto) 9.9 % [place] % (Auto) 8.1 % Eos % (Auto) 0.4 % Baso % (Auto) 0.6 % Neut # (Auto) 11.55 H (1.8-7.7) 10^3/u L Lymph # (Auto) 1.4 (0.8-4.8) 10^3/u L [place] # (Auto) 1.2 H (0.2-0.9) 10^3/u L Eos # (Auto) 0.1 (0.0-0.8) 10^3/u L Baso # (Auto) 0.1 (0.0-0.1) 10^3/u L Nucleated RBC % (a uto) 0 % Nucleated RBCs # 0.0 /100WBC PT 25.00 H (12.1-14.9) SECO NDS INR 2.22 H (0.8-1.2) Sodium 141 (136-145) mmol/L Potassium 3.9 (3.5-5.1) mmol/L Chloride 104 (98-107) mmol/L Carbon Dioxide 29 (22-29) mmol/L Anion Gap 11.9 (5-19) BUN 19 (8-23) mg/dL Creatinine 0.7 (0.5-0.9) mg/dL GFR Calculation 82.7 L (90-130) mL/min Glucose 120 H (65-115) mg/dL Calculated Osmolal ity 295 (285-295) mOsm/k g Calcium 8.4 L (8.5-10.5) mg/dL Total Bilirubin 0.3 (0.15-1.2) mg/dL AST 16 (0-32) U/L ALT 10 (0-33) U/L Alkaline Phosphata se 22 L (35-105) IU/L Total Protein 6.5 L (6.6-8.7) g/dL Albumin 3.5 (3.5-5.2) g/dL Globulin 3.0 (1.3-4.6) g/dL Imaging Data^: CT Head: Attestation: I personally reviewed and interpreted this imaging study as follows: Radiologist's impression: [facility] [place] [address] CT Scan Report Signed Patient: Doris Clarke Unit #: [id number] : 1950 Age/Sex: 70 / F ADM Date: 12/30/20 Loc: ER Room/Bed: Attending Dr: Ordering Provider/Ordering MD: Carson Beaver NP Date of Service: 12/30/20 Procedure(s): CT head wo con* [id number] Accession Number(s): [id number] Report Number: [id number] PROCEDURE INFORMATION: Exam: CT Head Without Contrast Exam date and time: 12/30/2020 6:25 PM Age: 70 years old Clinical indication: Injury or trauma; Blunt trauma (contusions or hematomas); Without loss of consciousness; Patient HX: Fall from standing; Additional info: Fall, head injury TECHNIQUE: Imaging protocol: Computed tomography of the head without contrast. Radiation optimization: All CT scans at this facility use at least one of these dose optimization techniques: automated exposure control; mA and/or kV adjustment per patient size (includes targeted exams where dose is matched to clinical indication); or iterative reconstruction. COMPARISON: CT head wo con* [id number] 03/18/2020 2:28 PM RADIATION DOSE METRICS: Total DLP (mGy-cm): 1008.75 FINDINGS: Brain: No hemorrhage. Mild diffuse cerebral atrophy. No cerebral edema. No mass effect or midline shift. Cerebral ventricles: No ventriculomegaly. Paranasal sinuses: Visualized sinuses are unremarkable. No fluid levels. Mastoid air cells: Visualized mastoid air cells are well aerated. Bones/joints: Unremarkable. No acute fracture. Soft tissues: Unremarkable. CT/CT head wo con* [id number] IMPRESSION: No acute intracranial abnormality. Radiation Dose CTDIVOL = (mGy): DLP = 1008.75 (mGy-cm) Dictated By: Wyatt Wiggins DO Signed By: Wyatt Wiggins DO Signed Date/Time: 12/30/202002 DD/ 00 Xray Ortho: Attestation: I personally reviewed and interpreted this imaging study as follows: Radiologist's impression: [facility] [address] [place] [address] XRay Report Signed Patient: Doris Clarke Unit #: [id number] : 1950 Age/Sex: 70 / F ADM Date: 12/30/20 Loc: ER Room/Bed: Attending Dr: Ordering Provider/Ordering MD: Carson Beaver NP Date of Service: 12/30/20 Procedure(s): XR knee LT 3V* [id number] Accession Number(s): [id number] Report Number: [id number] PROCEDURE INFORMATION: Exam: XR Left Knee Exam date and time: 12/30/2020 6:22 PM Age: 70 years old Clinical indication: Injury or trauma; Blunt trauma; 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 Pain, swelling, and bruising in left knee TECHNIQUE: Imaging protocol: XR Left knee. Views: 3 views. COMPARISON: No relevant prior studies available. FINDINGS: Bones/joints: Displaced spiral fracture of the distal femoral diaphysis. Moderate to severe degenerative narrowing of the joint space of the knee. Soft tissues: Normal. XR/XR knee LT 3V* [id number] IMPRESSION: Displaced spiral fracture of the distal femur. Dictated By: Wyatt Wiggins DO Signed By: Wyatt Wiggins DO Signed Date/Time: 12/30/201948 DD/ [address]: Attestation: I personally reviewed and interpreted this imaging study as fo llows: Radiologist's impression: [facility] [address] [place] [address] [address] Scan Report Signed Patient: Doris Clarke Unit #: [id number] : 1950 Age/Sex: 70 / F ADM Date: 12/30/20 Loc: ER Room/Bed: Attending Dr: Ordering Provider/Ordering MD: Carson Beaver NP Date of Service: 12/30/20 Procedure(s): CT cervical spin wo con* [id number] Accession Number(s): [id number] Report Number: [id number] PROCEDURE INFORMATION: Exam: CT Cervical Spine Without Contrast Exam date and time: 12/30/2020 6:25 PM Age: 70 years old Clinical indication: Injury or trauma; Blunt trauma; Patient HX: Fall from standing; Additional info: Fall, head injury TECHNIQUE: Imaging protocol: Computed tomography images of the cervical spine without contrast. Radiation optimization: All CT scans at this facility use at least one of these dose optimization techniques: automated exposure control; mA and/or kV adjustment per patient size (includes targeted exams where dose is matched to clinical indication); or iterative reconstruction. COMPARISON: CT head wo con* [id number] 03/18/2020 2:28 PM RADIATION DOSE METRICS: Total DLP (mGy-cm): 631.69 FINDINGS: Bones/joints: No acute fracture. Normal alignment. Discs/Spinal canal/Neural foramina: No significant disc protrusion. No severe spinal canal stenosis. No significant neural foraminal narrowing. Lungs: Lung apices are normal. Soft tissues: Unremarkable. CT/CT cervical spin wo con* [id number] IMPRESSION: No acute osseous abnormalities of the cervical spine. Radiation Dose CTDIVOL = (mGy): DLP = 631.69 (mGy-cm) Dictated By: Wyatt Wiggins DO Signed By: Wyatt Wiggins DO Signed Date/Time: 12/30/202004 CXR: Radiologist's impression: [facility] [address] [place] [address] XRay Report Signed Patient: Doris Clarke Unit #: [id number] : 1950 Age/Sex: 70 / F ADM Date: 12/30/20 Loc: ER Room/Bed: Attending Dr: Ordering Provider/Ordering MD: Ginny Bird MD Date of Service: 12/30/20 Procedure(s): XR chest 1V portable [id number] Accession Number(s): [id number] Report Number: [id number] PROCEDURE INFORMATION: Exam: XR Chest Exam date and time: 12/30/2020 8:20 PM Age: 70 years old Clinical indication: Other: Lt. Knee FX; Additional info: Fall TECHNIQUE: Imaging protocol: XR of the chest. Views: 1 view. COMPARISON: CR XR chest 1V portable [id number] 03/18/2020 1:27 PM FINDINGS: Lungs: Unremarkable. No consolidation. Pleural spaces: Unremarkable. No pleural effusion. No pneumothorax. Heart/Mediastinum: Unremarkable. No cardiomegaly. Bones/joints: Visualized osseous structures are intact. Rotator cuff repair anchor noted in the left humeral head. XR/XR chest 1V portable [id number] IMPRESSION: No acute findings. Dictated By: Wyatt Wiggins DO Signed By: Wyatt Wiggins DO Signed Date/Time: 12/30/202040 DD/ 39 Discharge Plan Discharge Patient Disposition: Admitted As Inpatient Clinical Impression: Fall Fracture of distal end of femur Qualifiers: Encounter type: initial encounter Fracture type: closed Fracture morphology: unspecified fracture morphology Laterality: left Qualified Code(s): S72.402A - Unspecified fracture of lower end of left femur, initial encounter for closed fracture Condition: Stable Coding Level of Care Code ED Transportation Services Representative for g Fwd Exam Comprehensive
[2020-12-30 18:56] LABS: Basophils # 0.1 10^3/uL (0.0-0.1); Basophils % 0.6 %; Eosinophils # 0.1 10^3/uL (0.0-0.8); Eosinophils % 0.4 %; Hemoglobin 11.9 g/dL (11.5-15.3); Lymphocytes # 1.4 10^3/uL (0.8-4.8); Lymphocytes % 9.9 %; Mean Corpuscular HGB Conc 31.3 g/dL (30.0-36.0); Mean Corpuscular Hemoglobin 30.6 pg (28.0-34.0); Mean Corpuscular Volume 97.7 fL (81-99); Mean Platelet Volume 10.7 fL (7.4-10.4); Monocytes # 1.2 10^3/uL (0.2-0.9); Monocytes % 8.1 %; Neutrophils # 11.55 10^3/uL (1.8-7.7); Neutrophils % 80.7 %; Nucleated Red Blood Cells % 0 %; Platelet Count 205 10^3/cmm (130-400); Red Blood Count 3.89 10^6/uL (4.1-5.3); Red Cell Distribution Width 13.4 % (12.1-15.1); White Blood Count 14.3 10^3/uL (4.0-10.0)
[2020-12-30 19:07] LABS: INR 2.22 (0.8-1.2)
[2020-12-30 19:13] LABS: Alanine Aminotransferase 10 U/L (0-33); Albumin Level 3.5 g/dL (3.5-5.2); Alkaline Phosphatase 22 IU/L (35-105); Anion Gap 11.9 (5-19); Aspartate Amino Transferase 16 U/L (0-32); Blood Urea Nitrogen 19 mg/dL (8-23); Calcium 8.4 mg/dL (8.5-10.5); Carbon Dioxide 29 mmol/L (22-29); Chloride 104 mmol/L (98-107); Glomerular Filtration Rate 82.7 mL/min (90-130); Glucose 120 mg/dL (65-115); Osmolality Calculated 295 mOsm/kg (285-295); Potassium 3.9 mmol/L (3.5-5.1); Sodium 141 mmol/L (136-145); Total Bilirubin 0.3 mg/dL (0.15-1.2); Total Protein 6.5 g/dL (6.6-8.7)
[2020-12-30 19:52] VITALS: BP 118/72; PULSE 98; RESP 18; TEMP 36.6; O2SAT 95
--- NOTE | 2020-12-30 20:20 | XRR_ITS ---
PROCEDURE INFORMATION: Exam: XR Chest Exam date and time: 12/30/2020 8:20 PM Age: 70 years old Clinical indication: Other: Lt. Knee FX; Additional info: Fall TECHNIQUE: Imaging protocol: XR of the chest. Views: 1 view. COMPARISON: CR XR chest 1V portable [id number] 03/18/2020 1:27 PM FINDINGS: Lungs: Unremarkable. No consolidation. Pleural spaces: Unremarkable. No pleural effusion. No pneumothorax. Heart/Mediastinum: Unremarkable. No cardiomegaly. Bones/joints: Visualized osseous structures are intact. Rotator cuff repair anchor noted in the left humeral head. XR/XR chest 1V portable [id number] IMPRESSION: No acute findings.
--- NOTE | 2020-12-30 20:20 | ECG_ITS ---
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 Measurements Intervals [place] Rate: 71 P: 70 TX: 153 QRS: 35 QRSD: 93 T: 64 QT: 385 QTc: 421 Interpretive Statements SINUS RHYTHM ST DEVIATION AND MODERATE T-WAVE ABNORMALITY, CONSIDER ANTERIOR ISCHEMIA [-0.1+ mV T WAVE IN V3/V4] Compared to ECG 03/18/2020 19:02:46 Possible ischemia now present Sinus arrhythmia no longer present T-wave abnormality still present Electronically Signed On 01-01-2021 12:20:17 CDT by Santo Armas M.D. [email or web address] [id number]
[2020-12-30] MEDS: morphine 4 mg/mL SDV 1 mL IVP (20:43)
[2020-12-30] MEDS: ondansetron 2 mg/ML SDV 2 mL 4 MG IVP (20:43)
--- NOTE | 2020-12-30 23:08 | PM.CONSULT ---
Providers/Reason For Consult Consulting Physician/Specialty*: Kathy Degroot MD Reason for Consult*: Displaced spiral left distal femur fracture Requesting Physician: Dr. Bird Attending Physician: Yane Arceo MD Primary Care Provider: Efren Romano MD History of Present Illness History of Present Illness Doris Clarke is a 70 year old female who states she tripped and fell just prior to admission. She landed on her left knee and hit her head as well. She has not been able to ambulate since the time of her fall. She states her pain is 8 out of 10. The patient currently is on Coumadin for history of stroke. She denied any syncopal episode or other reason for her fall. Patient has multiple comorbidities including morbid obesity, chronic kidney disease, stage II, history of cerebrovascular accident with left-sided weakness. She also has an elevated hemidiaphragm and severe lymphedema. There is moderate pulmonary arterial systolic hypertension with presence of a previous IVC filter and venous stasis dermatitis. All of these things complicate the plan for the surgical undertaking of open reduction internal fixation. She will be at a high infection risk as well as risk for DVT. We will need to explore the possibility of placement of an IVC filter as she previously has history of DVT. Review of Systems Const: Denies: fever(s) or chills Eyes: Denies: change in vision Card: Denies: chest pain or dyspnea on exertion Resp: Denies: dyspnea or productive cough GI: Denies: abdominal pain Musc: Reports: extremity pain (Left knee) and muscle weakness (Left side secondary to CVA) Skin/Breast: Denies: erythema or changes in skin color Neuro: Reports: weakness in extremities (Left) Psych: Denies: anxiety or depression [place]/Lymph: Denies: easy bruising or easy bleeding Meds/Allergies Home Medications and Allergies Home Medications Medication Instructions Recorded Confirmed Last Taken Type atorvastatin 40 mg PO BEDTIME 03/21/20 12/30/20 12/29/20 History citalopram 20 mg PO DAILY 03/21/20 12/30/20 12/30/20 History ferrous sulfate [Iron (ferrous 325 mg PO DAILY 03/21/20 12/30/20 12/30/20 History sulfate)] metoprolol tartrate 12.5 mg PO BID 03/21/20 12/30/20 12/30/20 History nitrofurantoin macrocrystal 50 mg PO DAILY 03/21/20 12/30/20 12/30/20 History omeprazole 20 mg PO DAILY 03/21/20 12/30/20 12/30/20 History oxybutynin chloride 5 mg PO BID 03/21/20 12/30/20 12/30/20 History ropinirole See Rx Instructions .ROUTE .COMPLEX 03/21/20 12/30/20 12/30/20 History tizanidine 4 mg PO TID PRN 03/21/20 12/30/20 12/30/20 History tramadol 50 - 100 mg PO QID PRN 03/21/20 12/30/20 12/30/20 History trazodone 100 mg PO BEDTIME 03/21/20 12/30/20 12/29/20 History furosemide 60 mg PO DAILY@0800 #45 tab 03/23/20 12/30/20 12/30/20 Rx amitriptyline 25 mg PO BEDTIME 12/30/20 12/30/20 12/29/20 History diazepam 5 mg PO BID 12/30/20 12/30/20 12/30/20 History warfarin See Rx Instructions .ROUTE .COMPLEX 12/30/20 12/30/20 12/30/20 History warfarin [Jantoven] See Rx Instructions .ROUTE .COMPLEX 12/30/20 12/30/20 12/29/20 History Allergies Allergy/AdvReac Type Severity Reaction Status Date / Time fluconazole Allergy Unknown Verified 03/21/20 09:16 latex Allergy Unknown Verified 03/21/20 09:16 Sulfa (Sulfonamide Allergy Unknown Verified 03/21/20 09:16 Antibiotics) PFSH Acute PFSH: Medical History Chronic anemia Chronic antibiotic suppression Has been taking nitrofurantoin for last 6 months as per the Chronic anticoagulation Coumadin 2 and 3mg daily depending on INR Chronic kidney disease, stage II (mild) CVA (cerebral vascular accident) Dyslipidemia Elevated hemidiaphragm Hypertension Left-sided weakness Lymphedema Moderate pulmonary arterial systolic hypertension Presence of IVC filter Venous stasis dermatitis Surgical History H/O shoulder surgery History of hip surgery History of hysterectomy S/P cholecystectomy Family History Other CAD (coronary artery disease) Hypertension Stroke Social History Smoking and tobacco status: former smoker Alcohol intake: never Household members: spouse Housing: House Vitals/I&O/Wt Last Vital Signs Temp 98.0 F 12/30/20 18:09 Pulse 88 12/30/20 18:09 Resp 18 12/30/20 18:09 BP 121/50 12/30/20 18:09 Pulse Ox 96 12/30/20 18:23 Weight last 48 hrs Weight 229.8 lb Physical Exam Const: COMMON NORMALS: no acute distress and alert EXAM LIMITATIONS: other limitations (Severe lymphedema) GENERAL APPEARANCE: cooperative, comfortable and Edematous NUTRITIONAL APPEARANCE: obese ORIENTATION/CONSCIOUSNESS: Yes awake and Yes oriented to person HENMT: COMMON NORMALS: normocephalic and atraumatic HEAD & SCALP: normocephalic and atraumatic Eye: GENERAL EYE: appearance normal, both eyes and all related structures Chest: COMMONS NORMALS: normal inspection of the chest Resp: COMMON NORMALS: normal respiratory effort EFFORT & INSPECTION: Yes able to speak in complete sentences and Yes symmetric chest movement Extremity: NARRATIVE EXTREMITY EXAM: Patient has significant deformity in both upper extremities. She has contractures of the fingers in the left hand. There are areas of skin breakdown here as well. Patient has gross lymphedema in both her upper and lower extremities. LEFT LOWER EXTREMITY: Yes upper leg (Significant ecchymotic change secondary to her fall.) Left upper leg: Yes inspection (Shortening or deformity), Yes palpation (Tender), Yes neurovascular exam (2+ pulses) and Yes other (Severe lymphedema) and Yes knee joint (Severe lymphedema about the knee) Left knee: Yes inspection (Ecchymosis anteriorly secondary to her fall), Yes palpation (Tender), Yes ROM (Not evaluated) and Yes neurovascular exam (Able to move her foot with 2+ pulses) Neuro: SENSORIUM/ORIENTATION: Yes alert and Yes oriented to person Psych: COMMON NORMALS: mental status grossly normal APPEARANCE: Yes grossly normal ATTITUDE: Yes calm and Yes engaged ATTENTION/CONCENTRATION: Yes attention grossly intact Skin: COMMON NORMALS: no rashes or lesions noted GENERAL SKIN EXAM: no rashes or lesions noted Data Imaging^: Xray Ortho: I personally reviewed and interpreted this imaging study as follows: My impression: There is a displaced spiral left distal femur fracture and and very osteopenic bone above a severely arthritic knee with significant deformity and bone loss at the knee. A&P Assessment and plan (1) Supracondylar fracture of left femur: This 70-year-old who lives at home with her fell directly onto her left knee today. She was previously admitted in February 2020 for generalized weakness as well. Currently, the patient presents with a supracondylar femur fracture. Unfortunately, this is complicated by the fact that she has severe lymphedema. She has residual weakness on her left side with contractures of her hands and a previous history of DVT with placement of an IVC filter. She presents on Coumadin as well. Secondary to her multiple comorbidities and the fact that she is on Coumadin, we will plan operative intervention when we have appropriate staffing and equipment. This will be on January 01 at 8 AM. The patient is admitted to the hospitalist service for optimization for surgical intervention. She is obviously very high risk particularly given her multiple comorbidities as listed above. The patient is advised that given her lymphedema and chronic venous stasis issues in addition to this injury, she is at very high risk for infection. She is also at high risk for potential amputation. I have advised her that we will work tomorrow to optimize her situation for surgical intervention. I have asked the emergency department to obtain a CT scan. Additionally, they will place the patient in a splint with traction via Calderon's traction, 10#. We will plan for surgery as noted above at 8 AM on Saturday. Status: Acute Qualifiers: Encounter type: initial encounter Fracture type: closed Qualified Code(s): S72.452A - Displaced supracondylar fracture without intracondylar extension of lower end of left femur, initial encounter for closed fracture Consult Attestations Medical Necessity Statement: Patient requires inpatient admission for treatment following a distal femur fracture. Coding Level of Care Code Acute Supervisor [employer]ly[employer] for Walter Moisés Diagnoses Supracondylar fracture of left femur S72.452A Encounter type: initial encounter Fracture type: closed
--- NOTE | 2020-12-30 23:35 | PM.HP ---
Providers/Chief Complaint Admitting Physician: Yane Arceo Primary Care Provider: Efren Romano MD Chief Complaint: FALL/ L KNEE PAIN History of Present Illness 69-year-old with a past medical history significant for CVA with residual left-sided weakness, hypertension, dyslipidemia, DVT/PE with prior noted IVC filter also however on Coumadin, who presented to the hospital after she sustained a fall.Upon arrival to ER patients laboratory workup showed a WBC of 14.3, hemoglobin of 11.9, hematocrit of 38.0 and a platelet count of 205.INR was 2.22. Sodium 141, potassium 3.9, chloride 104, bicarb 29, BUN 19 and creatinine of 0.7. Urinalysis showed positive nitrites, 0 to 4 WBCs and negative leukocyte esterase.CT of knee showed acute displaced comminuted fracture of distal left femoral diaphysis with significant rotational component,. Fracture soft tissue hematoma and diffuse soft tissue edema. Review of Systems General: Reports: ROS unobtainable due to mental status Medications/Allergies Home Medications Medication Instructions Recorded Confirmed Last Taken Type atorvastatin 40 mg PO BEDTIME 03/21/20 12/30/20 12/29/20 History citalopram 20 mg PO DAILY 03/21/20 12/30/20 12/30/20 History ferrous sulfate [Iron (ferrous 325 mg PO DAILY 03/21/20 12/30/20 12/30/20 History sulfate)] metoprolol tartrate 12.5 mg PO BID 03/21/20 12/30/20 12/30/20 History nitrofurantoin macrocrystal 50 mg PO DAILY 03/21/20 12/30/20 12/30/20 History omeprazole 20 mg PO DAILY 03/21/20 12/30/20 12/30/20 History oxybutynin chloride 5 mg PO BID 03/21/20 12/30/20 12/30/20 History ropinirole See Rx Instructions .ROUTE .COMPLEX 03/21/20 12/30/20 12/30/20 History tizanidine 4 mg PO TID PRN 03/21/20 12/30/20 12/30/20 History tramadol 50 - 100 mg PO QID PRN 03/21/20 12/30/20 12/30/20 History trazodone 100 mg PO BEDTIME 03/21/20 12/30/20 12/29/20 History furosemide 60 mg PO DAILY@0800 #45 tab 03/23/20 12/30/20 12/30/20 Rx amitriptyline 25 mg PO BEDTIME 12/30/20 12/30/20 12/29/20 History diazepam 5 mg PO BID 12/30/20 12/30/20 12/30/20 History warfarin See Rx Instructions .ROUTE .COMPLEX 12/30/20 12/30/20 12/30/20 History warfarin [Jantoven] See Rx Instructions .ROUTE .COMPLEX 12/30/20 12/30/20 12/29/20 History Allergies Allergy/AdvReac Type Severity Reaction Status Date / Time fluconazole Allergy Unknown Verified 03/21/20 09:16 latex Allergy Unknown Verified 03/21/20 09:16 Sulfa (Sulfonamide Allergy Unknown Verified 03/21/20 09:16 Antibiotics) PFSH Acute PFSH: Medical History Chronic anemia Chronic antibiotic suppression Has been taking nitrofurantoin for last 6 months as per the Chronic anticoagulation Coumadin 2 and 3mg daily depending on INR Chronic kidney disease, stage II (mild) CVA (cerebral vascular accident) Dyslipidemia Elevated hemidiaphragm Hypertension Left-sided weakness Lymphedema Moderate pulmonary arterial systolic hypertension Presence of IVC filter Venous stasis dermatitis Surgical History H/O shoulder surgery History of hip surgery History of hysterectomy S/P cholecystectomy Family History Other CAD (coronary artery disease) Hypertension Stroke Social History Smoking and tobacco status: former smoker Alcohol intake: never Household members: spouse Housing: House Vitals/I&O/Wt Last Vital Signs Temp 98 F 12/30/20 19:52 Pulse 98 12/30/20 19:52 Resp 18 12/30/20 19:52 BP 118/72 12/30/20 19:52 Pulse Ox 95 12/30/20 19:52 Weight last 48 hrs Weight 103.873 kg Weight 72.575 kg Physical Exam Narrative: EXAM NARRATIVE: General : alert however drowsy HEENT : grossly unremarkable CVS ; NSR Chest : Non-labored respiration Abd; Soft, nt Ext no edema Urinary Catheter Management^: Anderson: Cath Placed During This Visit: yes Urinary Catheter Date of Insertion: 12/31/20 Urinary Catheter Time of Insertion: 02:48 Data : 12/30/20 18:52 12/30/20 18:52 A&P Assessment and plan (1) Fracture of distal end of femur: Status: Acute Qualifiers: Encounter type: initial encounter Fracture morphology: unspecified fracture morphology Fracture type: closed Laterality: left Qualified Code(s): S72.402A - Unspecified fracture of lower end of left femur, initial encounter for closed fracture Left distal femoral fracture Hx of DVT/PE on Coumadin s/p IVC filter Hypertension Dyslipidemia Hx of CVA with residual left sided weakness DVT ppx Plan : Continue home meds Hold Coumadin Repeat INR in am Unclear hx of IVC filter Pain control Ortho consulted Attestations Medical Necessity Statement*: Will require further hospitalization for management of hip fracture, anticipate > 2 midnight stay in hospital Time Spent in Patient Care: Greater than 35 minutes Coding Level of Care Code Acute Machine Wiper for g Fwd Diagnoses Fracture of distal end of femur S72.402A Encounter type: initial encounter Fracture morphology: unspecified fracture morphology Fracture type: closed Laterality: left
--- NOTE | 2020-12-30 23:48 | CTR_ITS ---
PROCEDURE INFORMATION: Exam: CT Left Lower Extremity Without Contrast, Knee Exam date and time: 12/30/2020 11:48 PM Age: 70 years old Clinical indication: Injury or trauma; Fall; Blunt trauma; Knee; Left; Additional info: FX TECHNIQUE: Imaging protocol: CT of the Left lower extremity without contrast was performed. Exam focused on the knee. Radiation optimization: All CT scans at this facility use at least one of these dose optimization techniques: automated exposure control; mA and/or kV adjustment per patient size (includes targeted exams where dose is matched to clinical indication); or iterative reconstruction. COMPARISON: CR (LOW EXM, ) 12/30/2020 6:59 PM RADIATION DOSE METRICS: Total DLP (mGy-cm): 1488 FINDINGS: Bones/joints: Acute posttraumatic severely displaced fracture of the distal femoral diaphysis with oblique configuration. Marked medial displacement of proximal fracture fragment. Small adjacent comminuted fragments. Limitation by prominent motion blur. Likely significant rotational deformity at the fracture site. Osteopenia. Advanced degenerative arthritis left knee joint with hypertrophic formation. Likely intra-articular calcified loose body left knee joint. Prominent soft tissue edema and hematoma adjacent to the fracture. Diffuse superficial soft tissue edema. Soft tissues: Multifocal subcutaneous soft tissue calcifications. Atrophic appearance of musculature with fatty infiltration. Vasculature: Soft tissue vascular calcification. CT/CT knee LT wo con* [id number] IMPRESSION: 1. Acute displaced comminuted fracture distal left femoral diaphysis with significant rotational component. 2. Mary Kate fracture soft tissue hematoma and diffuse soft tissue edema. 3. Advanced degenerative arthritis left knee with osteocartilaginous loose body. Radiation Dose CTDIVOL = (mGy): DLP = 1488 (mGy-cm)
[2020-12-31 02:59] LABS: Add Urine Microscopic? YES; Bilirubin Urine Neg (Negative); Blood Urine Neg (Negative); Glucose Urine UA Norm (Normal); Ketones Urine Negative (Negative); Leukocyte Esterase Urine Negative (Negative); Nitrate Urine Positive (Negative); Protein Urine Neg (Negative); Urine Appearance Clear (CLEAR); Urine Color Yellow (Yellow); Urobilinogen Urine 1 mg/dL (Negative); pH Urine 5 (5-7)
[2020-12-31 03:07] LABS: RBC Urine 0-4 /hpf (0-2); WBC Urine 0-4 /hpf (0-5)
[2020-12-31 03:08] LABS: Add Urine Culture? Yes; Amorphous Sediment Urine 1+ /hpf; Bacteria Urine 3+ /hpf; Hyaline Casts Urine 0-4 /lpf; Mucus Urine 1+ /hpf
[2020-12-31] MEDS: ferrous sulfate EC 325 mg Tablet PO (08:56)
[2020-12-31] MEDS: citalopram 20 mg Tablet PO (08:56)
[2020-12-31] MEDS: metoprolol tartrate 25 mg Tablet 12.5 MG PO ×2 (08:56→18:23)
[2020-12-31] MEDS: pantoprazole DR 40 mg Tablet PO (08:56)
[2020-12-31] MEDS: morphine 4 mg/mL SDV 1 mL 2 MG IVP ×3 (08:57→20:28)
[2020-12-31] MEDS: cefTRIAXone 1,000 MG in sodium chloride 0.9% (plus) 50 ML 100 MG IV (08:57)
--- NOTE | 2020-12-31 11:05 | XRR_ITS ---
PROCEDURE INFORMATION: Exam: XR Abdomen Exam date and time: 12/31/2020 11:05 AM Age: 70 years old Clinical indication: Device placement; Gi device; Other: Ivc; Additional info: Ivc filter in place? TECHNIQUE: Imaging protocol: XR of the abdomen. Views: Frontal supine view of the abdomen. 1 View. COMPARISON: CT abdomen pelvis con [id number] 03/18/2020 6:43 PM FINDINGS: Gastrointestinal tract: There is evidence of cholecystectomy present. No bowel dilation. A large collection of colonic fecal stasis is seen involving the ascending and proximal transverse colon. The remainder of the colon does not show focal abnormalities. Vasculature: There is a IVC filter in place in good position. If indicated non emergent consultation with interventional clinician is recommended. Multiple phleboliths are seen in the left anterior pelvis Bones/joints: Metallic intramedullary alda is seen in the proximal right femur. XR/XR KUB portable [id number] IMPRESSION: 1. No acute GI abnormality. 2. Colonic fecal stasis as described. 3. IVC filter in good position. 4. Status post cholecystectomy. 5. Multiple phleboliths in the left pelvis . 6. Metallic intramedullary alda proximal right femur.
[2020-12-31] MEDS: FUROsemide 10 mg/mL SDV 2mL 20 MG IVP (13:00)
--- NOTE | 2020-12-31 13:19 | PM.PN ---
Subjective Subjective: Interval history: Patient was seen this morning, she tells me that she does not remember how she fell, she thinks that she was getting up out of bed, and tripped and fell, she denies any headache, no blurry vision, no nausea, no vomiting, no chest pain, she is on Coumadin for history of DVT, currently complaining of pain Vitals/I&O/Wt Last Vital Signs Temp 98 F 12/30/20 19:52 Pulse 98 12/30/20 19:52 Resp 18 12/30/20 19:52 BP 118/72 12/30/20 19:52 Pulse Ox 95 12/30/20 19:52 Weight last 48 hrs Weight 103.873 kg Weight 72.575 kg Physical Exam Const: COMMON NORMALS: no acute distress and patient oriented x3 Resp: COMMON NORMALS: normal respiratory effort, No retractions, No use of accessory muscles and clear to auscultation bilaterally AUSCULTATION: clear to auscultation bilaterally Cardio: COMMON NORMALS: regular rate, regular rhythm, S1 normal heart sound present and S2 normal heart sound present RATE: regular rate RHYTHM: regular rhythm HEART SOUNDS: S1 normal heart sound present and S2 normal heart sound present GI: COMMON NORMALS: Normal to inspection, nondistended, normoactive bowel sounds present, Soft to palpation, non-tender and No hepatosplenomegaly present PALPATION: Yes Soft to palpation and Yes No hepatosplenomegaly present Extremity: NARRATIVE EXTREMITY EXAM: Left lower extremity in a binder Chronic flexion contracture of left upper extremity Neuro: COMMON NORMALS: patient oriented x3 Skin: NARRATIVE SKIN EXAM: Bruising over right scalp Urinary Catheter Management^: Anderson: Cath Placed During This Visit: yes Reason for Continuing Indwelling Catheter: Other Urinary Catheter Date of Insertion: 12/31/20 Urinary Catheter Time of Insertion: 02:48 Data : 12/30/20 18:52 12/30/20 18:52 A&P Assessment and plan (1) Fracture of distal end of femur: Status: Acute Qualifiers: Encounter type: initial encounter Fracture morphology: unspecified fracture morphology Fracture type: closed Laterality: left Qualified Code(s): S72.402A - Unspecified fracture of lower end of left femur, initial encounter for closed fracture (2) Diastolic CHF: Status: Acute (3) Presence of IVC filter: Status: Acute (4) Left-sided weakness: Status: Acute (5) Dyslipidemia: Status: Acute (6) CVA (cerebral vascular accident): Status: Acute (7) Chronic kidney disease, stage II (mild): Status: Acute (8) Chronic anticoagulation: Status: Acute (9) Elevated liver enzymes: Status: Acute (10) UTI (urinary tract infection): Status: Acute Left distal femoral fracture -Dr. Degroot on consult -Pain control on morphine -DVT prophylaxis INR 2.2, Coumadin on hold, IVC filter in place -Protonix GI prophylaxis -Full code -Patient requires medical optimization including treatment of UTI, optimization of respiratory status with Rocephin, optimization of INR, before proceeding to surgery UTI, start Rocephin CKD stage II Hx of DVT/PE on Coumadin, INR 2.2, continue to hold Coumadin KUB shows IVC filter in place Hypertension Dyslipidemia Diastolic CHF, currently on 3 L, slight crackles, will give 40 mg of Lasix Hx of CVA with residual left sided weakness DVT ppx Attestations Medical Necessity Statement*: Patient requires hospitalization for fracture of distal femur, UTI, requires medical optimization before proceeding to surgery Coding Level of Care Code Acute Horologist for [facility] Fwd Diagnoses Fracture of distal end of femur S72.402A Encounter type: initial encounter Fracture morphology: unspecified fracture morphology Fracture type: closed Laterality: left Diastolic CHF I50.30 Presence of IVC filter Z95.828 Left-sided weakness R53.1 Dyslipidemia E78.5 CVA (cerebral vascular accident) I63.9 Chronic kidney disease, stage II (mild) N18.2 Chronic anticoagulation Z79.01 Elevated liver enzymes R74.8 UTI (urinary tract infection) N39.0
[2020-12-31 18:38] VITALS: BMI 41.8
[2020-12-31 20:27] VITALS: BP 137/73; PULSE 80; RESP 17; TEMP 36.8; O2SAT 100
[2020-12-31] MEDS: atorvastatin 40 mg Tablet PO (20:28)
[2020-12-31 23:58] VITALS: BP 129/57; PULSE 91; RESP 18; TEMP 36.7; O2SAT 91
[2021-01-01] VITALS (19 sets, daily range): BP systolic 109–189; BP diastolic 57–84; PULSE 64–90; RESP 16–20; TEMP 36.6–37.6; O2SAT 92–100
[2021-01-01] MEDS: morphine 4 mg/mL SDV 1 mL 2 MG IVP ×4 (01:08→13:19)
[2021-01-01 06:12] LABS: Basophils # 0.1 10^3/uL (0.0-0.1); Basophils % 0.8 %; Eosinophils # 0.1 10^3/uL (0.0-0.8); Eosinophils % 0.9 %; Hematocrit 26.4 % (37.0-47.0); Hemoglobin 8.4 g/dL (11.5-15.3); Lymphocytes # 1.9 10^3/uL (0.8-4.8); Lymphocytes % 18.4 %; Mean Corpuscular HGB Conc 31.8 g/dL (30.0-36.0); Mean Corpuscular Hemoglobin 30.7 pg (28.0-34.0); Mean Corpuscular Volume 96.4 fL (81-99); Mean Platelet Volume 10.7 fL (7.4-10.4); Monocytes # 1.5 10^3/uL (0.2-0.9); Monocytes % 14.3 %; Neutrophils # 6.68 10^3/uL (1.8-7.7); Neutrophils % 65.1 %; Nucleated Red Blood Cells % 0 %; Platelet Count 192 10^3/cmm (130-400); Red Blood Count 2.74 10^6/uL (4.1-5.3); Red Cell Distribution Width 13.6 % (12.1-15.1); White Blood Count 10.2 10^3/uL (4.0-10.0)
[2021-01-01 06:47] LABS: Alanine Aminotransferase 96 U/L (0-33); Albumin Level 3.2 g/dL (3.5-5.2); Alkaline Phosphatase 15 IU/L (35-105); Anion Gap 9.5 (5-19); Aspartate Amino Transferase 68 U/L (0-32); Blood Urea Nitrogen 15 mg/dL (8-23); C Reactive Protein 29.3 mg/L (0.0-4.9); Calcium 8.3 mg/dL (8.5-10.5); Carbon Dioxide 32 mmol/L (22-29); Chloride 106 mmol/L (98-107); Globulin 2.7 g/dL (1.3-4.6); Glomerular Filtration Rate 98.8 mL/min (90-130); Glucose 106 mg/dL (65-115); Magnesium 1.8 mg/dL (1.7-2.3); Osmolality Calculated 299 mOsm/kg (285-295); Phosphorus 3.2 mg/dL (2.5-4.5); Potassium 3.5 mmol/L (3.5-5.1); Sodium 144 mmol/L (136-145); Total Bilirubin 0.7 mg/dL (0.15-1.2); Total Protein 5.9 g/dL (6.6-8.7)
--- NOTE | 2021-01-01 06:50 | P.ANESASSM_ITS ---
Pre-Anesthetic Assessment Pre-Anesthetic Assessment: Height/Weight: Height 1.57 m Weight 103.873 kg Temp Pulse Resp BP Pulse Ox 98.3 F 90 18 126/78 92 01/01/21 04:00 01/01/21 04:00 01/01/21 05:50 01/01/21 04:00 01/01/21 04:00 Preop Diagnosis: Left distal femur fracture Proposed Procedure: Operation Date: 01/01/21 08:30 Proposed Procedures p ORIF Femur(Left) - Kathy Degroot MD Familial anesthetic complications: None Was Beta Angel taken within 24 hours: N/A Was Clonidine taken within 24 hours: N/A Last intake: Intake Last Solid Date 12/31/20 Last Solid Time 12:00 Social: Social History: No alcohol and No tobacco Comment: former smoker Exam: Pre-Anes Outpt Exam: alert, oriented x 3, clear to auscultation bilaterally and regular rate & rhythm Airway: Cervical ROM: WNL MP: 4 Dentition: Other (no teeth) CV/HEM: CV/HEM: CHF, DVT and HTN Comments: IVC filter and warfarin tx ECHO 2019 CONCLUSIONS 1. Normal left ventricular size, systolic function and wall thickness, with no regional wall motion abnormalities. Left ventricular ejection fraction is estimated at 70 %. Normal diastolic function. 2. Normal right ventricular size and systolic function, RVSP 39 mmHg. 3. Mild aortic valve regurgitation. 4. When compared to previous echocardiogram dated 06/06/2013, tricuspid valve regurgitation seems to have decreased. : : Chronic renal Insufficiency GI: GI: GERD Metabolic: Metabolic: Morbid obesity Neuropsych: Neuropsych: CVA Anesthetic Plan: ASA status: 4 Anesthesia: General Risk of > 500 ml blood loss (7ml/kg in children): No Meds/Allergies Current Medications: Current Medications Generic Name Dose Route Start Last Admin Trade Name Freq PRN Reason Stop Dose Admin Atorvastatin Calci um 40 mg 12/31/20 21:00 12/31/20 20:28 Atorvastatin 40 Mg Tablet PO 40 mg BEDTIME AQUILINO Administration Citalopram Hydrobr omide 20 mg 12/31/20 09:00 12/31/20 08:56 Citalopram 20 Mg Tablet PO 20 mg DAILY AQUILINO Administration Ferrous Sulfate 325 mg 12/31/20 09:00 12/31/20 08:56 Ferrous Sulfate Ec 325 Mg Tablet PO 325 mg DAILY AQUILINO Administration Ceftriaxone Sodium 1,000 mg/ 50 mls @ 100 mls/ hr 12/31/20 09:00 12/31/20 09:27 Sodium Chloride IV Infused Q24H AQUILINO Infusion Protocol Metoprolol Tartrat e 12.5 mg 12/31/20 09:00 12/31/20 18:23 Metoprolol Tartr ate 25 Mg Tablet PO 12.5 mg BID AQUILINO Administration Morphine Sulfate 2 mg 12/31/20 08:39 01/01/21 05:50 Morphine 4 Mg/Ml Sdv 1 Ml IVP 2 mg Q4H PRN Administration SEVERE PAIN Pantoprazole Sodiu m 40 mg 12/31/20 09:00 12/31/20 08:[address] 40 Mg Tablet PO 40 mg DAILY AQUILINO Administration PFSH Anesthesia PFSH: Medical History (Updated 12/31/20 @ 13:24 by Carson Tony MD) Chronic anemia Chronic antibiotic suppression Has been taking nitrofurantoin for last 6 months as per the Chronic anticoagulation Coumadin 2 and 3mg daily depending on INR Chronic kidney disease, stage II (mild) CVA (cerebral vascular accident) Dyslipidemia Elevated hemidiaphragm Hypertension Left-sided weakness Lymphedema Moderate pulmonary arterial systolic hypertension Presence of IVC filter Venous stasis dermatitis Surgical History H/O shoulder surgery History of hip surgery History of hysterectomy S/P cholecystectomy Family History Other CAD (coronary artery disease) Hypertension Stroke Social History Smoking and tobacco status: former smoker Alcohol intake: never Household members: spouse Housing: House Female Reproductive History: Date of last menstrual period: 12/31/20 Data Anesthesia CBC & Chem 7: 01/01/21 05:45 01/01/21 05:45 Other Labs: Laboratory Results - last 48 hr 12/30/20 12/30/20 12/30/20 18:52 18:52 18:52 WBC 14.3 H RBC 3.89 L Hgb 11.9 Hct 38.0 MCV 97.7 MCH 30.6 MCHC 31.3 RDW 13.4 Plt Count 205 MPV 10.7 H Neut % (Auto) 80.7 Lymph % (Auto) 9.9 [place] % (Auto) 8.1 Eos % (Auto) 0.4 Baso % (Auto) 0.6 Neut # (Auto) 11.55 H Lymph # (Auto) 1.4 [place] # (Auto) 1.2 H Eos # (Auto) 0.1 Baso # (Auto) 0.1 Nucleated RBC % (auto) 0 Nucleated RBCs # 0.0 PT 25.00 H INR 2.22 H Sodium 141 Potassium 3.9 Chloride 104 Carbon Dioxide 29 Anion Gap 11.9 BUN 19 Creatinine 0.7 GFR Calculation 82.7 L Glucose 120 H Calculated Osmolality 295 Calcium 8.4 L Phosphorus Magnesium Total Bilirubin 0.3 AST 16 ALT 10 Alkaline Phosphatase 22 L C-Reactive Protein Total Protein 6.5 L Albumin 3.5 Globulin 3.0 Urine Color Urine Appearance Urine pH Ur Specific Honor Urine Protein Urine Glucose (UA) Urine Ketones Urine Blood Urine Nitrate Urine Bilirubin Urine Urobilinogen Ur Leukocyte Esterase Urine RBC Urine WBC Ur Squamous Epith Cells Amorphous Sediment Urine Bacteria Hyaline Casts Urine Mucus Blood Type Rho(D) Type Antibody Screen 12/31/20 12/31/20 01/01/21 02:45 12:33 05:45 WBC 10.2 H RBC 2.74 L Hgb 8.4 L Hct 26.4 L MCV 96.4 MCH 30.7 MCHC 31.8 RDW 13.6 Plt Count 192 MPV 10.7 H Neut % (Auto) 65.1 Lymph % (Auto) 18.4 [place] % (Auto) 14.3 Eos % (Auto) 0.9 Baso % (Auto) 0.8 Neut # (Auto) 6.68 Lymph # (Auto) 1.9 [place] # (Auto) 1.5 H Eos # (Auto) 0.1 Baso # (Auto) 0.1 Nucleated RBC % (auto) 0 Nucleated RBCs # 0.0 PT INR Sodium Potassium Chloride Carbon Dioxide Anion Gap BUN Creatinine GFR Calculation Glucose Calculated Osmolality Calcium Phosphorus Magnesium Total Bilirubin AST ALT Alkaline Phosphatase C-Reactive Protein Total Protein Albumin Globulin Urine Color Yellow Urine Appearance Clear Urine pH 5 Ur Specific Honor 1.020 Urine Protein Neg Urine Glucose (UA) Norm Urine Ketones Negative Urine Blood Neg Urine Nitrate Positive H Urine Bilirubin Neg Urine Urobilinogen 1 H Ur Leukocyte Esterase Negative Urine RBC 0-4 H Urine WBC 0-4 H Ur Squamous Epith Cells 5-10 H Amorphous Sediment 1+ Urine Bacteria 3+ H Hyaline Casts 0-4 H Urine Mucus 1+ Blood Type O Positive Rho(D) Type Positive / 4+ Antibody Screen Negative 01/01/21 01/01/21 05:45 05:45 WBC RBC Hgb Hct MCV MCH MCHC RDW Plt Count MPV Neut % (Auto) Lymph % (Auto) [place] % (Auto) Eos % (Auto) Baso % (Auto) Neut # (Auto) Lymph # (Auto) [place] # (Auto) Eos # (Auto) Baso # (Auto) Nucleated RBC % (auto) Nucleated RBCs # PT 30.80 H INR 2.90 H Sodium 144 Potassium 3.5 Chloride 106 Carbon Dioxide 32 H Anion Gap 9.5 BUN 15 Creatinine 0.6 GFR Calculation 98.8 Glucose 106 Calculated Osmolality 299 H Calcium 8.3 L Phosphorus 3.2 Magnesium 1.8 Total Bilirubin 0.7 AST 68 H ALT 96 H Alkaline Phosphatase 15 L C-Reactive Protein 29.3 H Total Protein 5.9 L Albumin 3.2 L Globulin 2.7 Urine Color Urine Appearance Urine pH Ur Specific Honor Urine Protein Urine Glucose (UA) Urine Ketones Urine Blood Urine Nitrate Urine Bilirubin Urine Urobilinogen Ur Leukocyte Esterase Urine RBC Urine WBC Ur Squamous Epith Cells Amorphous Sediment Urine Bacteria Hyaline Casts Urine Mucus Blood Type Rho(D) Type Antibody Screen Cardiac Studies: No Data to Display
[2021-01-01 06:51] LABS: NT Pro B Type Natriuretic Pept 604 pg/mL (0-125); Procalcitonin 0.12 ng/mL (0-0.5)
--- NOTE | 2021-01-01 08:37 | PC.NURSE ---
FFP X2 UNITS OF FFP GIVEN PER M.JOHN HOUSER
[2021-01-01] MEDS: lidocaine 1% 5 ML in potassium chloride premix 100 ML 50 ML IV (08:52)
[2021-01-01] MEDS: phytonadione (ADULT) 10 mg/mL Ampule 1 mL SUBCUT (08:52)
[2021-01-01] MEDS: FUROsemide 10 mg/mL SDV 4mL 40 MG IVP ×2 (08:52→16:58)
[2021-01-01] MEDS: metoprolol tartrate 25 mg Tablet 12.5 MG PO ×2 (08:53→16:58)
[2021-01-01] MEDS: citalopram 20 mg Tablet PO (08:53)
[2021-01-01] MEDS: ferrous sulfate EC 325 mg Tablet PO (08:53)
[2021-01-01] MEDS: pantoprazole DR 40 mg Tablet PO (08:53)
[2021-01-01] MEDS: cefTRIAXone 1,000 MG in sodium chloride 0.9% (plus) 50 ML 100 MG IV (09:04)
[2021-01-01 10:01] LABS: SARS Covid-2 Antigen Negative (Negative)
--- NOTE | 2021-01-01 10:38 | PC.NURSE ---
PRBC 1ST UNIT OF PRBC STARTED AT 75ML/HR - SEE TAR FOR DETAILS - PT SEAN WELL
--- NOTE | 2021-01-01 10:58 | PC.NURSE ---
PRBC CONT PRBC CONTINUE TO INFUSE WITHOUT DIFFICULTY - INCREASED TO 125ML/HR - VSS - LAB IN ROOM TO ATTEMPT TO DRAW X2 LAB PERSONNEL - UNABLE - DR PEACE NOTIFIED
--- NOTE | 2021-01-01 11:22 | PC.NURSE ---
Addendum entered by Carmel Gomez RN 01/01/21 11:32: LEFT KNEE IMMOBILZER IN PLACE Original Note: AM NOTE - 729 LATE ENTRY NOTED PT TO HAVE GENERALIZED EDEMA - 2+ - NOTED PTS HANDS TO BE CONTRACTED - PT STATES SHE IS ABLE TO FED HERSELF AND HOLD A PENCIL - AMBULATES AT HOME WITH MINIMAL ASSIST WITH WALKER
--- NOTE | 2021-01-01 11:32 | PC.NURSE ---
DR KOBI PEACE IN ROOM - REMOVED BUCKS TX - TO MONITOR PT AND NEED FOR BUCKS PER THIS NURSE
--- NOTE | 2021-01-01 11:45 | PM.PN ---
Subjective Subjective: Interval history: Patient was seen this morning, her is at bedside, she tells me that her pain is well controlled with the morphine, no chest pain, no shortness of breath, she is on 5 L, she uses 3 L at night, denies a cough, Vitals/I&O/Wt Last Vital Signs Temp 98.3 F 01/01/21 11:08 Pulse 73 01/01/21 11:08 Resp 18 01/01/21 11:08 BP 137/79 01/01/21 11:08 Pulse Ox 100 01/01/21 11:08 12/31/20 01/01/21 01/01/21 22:59 06:59 14:59 Intake Total 416 / 416 Output Total 900 / 900 Balance -900 / -850 416 / 416 Weight last 48 hrs Weight 103.873 kg Weight 103.873 kg Weight 72.575 kg Physical Exam Const: COMMON NORMALS: no acute distress and patient oriented x3 GENERAL APPEARANCE: cooperative NUTRITIONAL APPEARANCE: obese Resp: COMMON NORMALS: normal respiratory effort, No retractions and No use of accessory muscles AUSCULTATION: crackles Cardio: COMMON NORMALS: regular rate, regular rhythm, S1 normal heart sound present, S2 normal heart sound present and No murmurs present (Cardio) RATE: regular rate RHYTHM: regular rhythm HEART SOUNDS: S1 normal heart sound present and S2 normal heart sound present GI: COMMON NORMALS: Normal to inspection, nondistended, normoactive bowel sounds present, Soft to palpation, non-tender and No hepatosplenomegaly present PALPATION: Yes Soft to palpation and Yes No hepatosplenomegaly present OTHER: Obese abdomen Extremity: NARRATIVE EXTREMITY EXAM: 1+ pitting edema Bilateral extremity lymphedema Left lower extremity in a binder, and of external fixator, with significant bruising over left knee extending to left thigh Neuro: COMMON NORMALS: patient oriented x3 Skin: NARRATIVE SKIN EXAM: Bruising over right sabianist Urinary Catheter Management^: Anderson: Cath Placed During This Visit: yes Reason for Continuing Indwelling Catheter: Required Immobilization for Trauma or Surgery or Anesthesia Urinary Catheter Date of Insertion: 12/31/20 Urinary Catheter Time of Insertion: 02:48 Data : 01/01/21 05:45 01/01/21 05:45 Micro: Microbiology 12/31/20 02:45 Urine Culture - Preliminary Urine Catheterized Gram Negative Rods A&P Assessment and plan (1) Fracture of distal end of femur: Status: Acute Qualifiers: Encounter type: initial encounter Fracture morphology: unspecified fracture morphology Fracture type: closed Laterality: left Qualified Code(s): S72.402A - Unspecified fracture of lower end of left femur, initial encounter for closed fracture (2) Diastolic CHF: Status: Acute (3) Presence of IVC filter: Status: Acute (4) Left-sided weakness: Status: Acute (5) Dyslipidemia: Status: Acute (6) CVA (cerebral vascular accident): Status: Acute (7) Chronic kidney disease, stage II (mild): Status: Acute (8) Chronic anticoagulation: Status: Acute (9) Elevated liver enzymes: Status: Acute (10) UTI (urinary tract infection): Status: Acute (11) Hypoxia: Status: Acute Left distal femoral fracture -Dr. Degroot on consult, plans for surgery delayed till tomorrow afternoon -Pain control on morphine -DVT prophylaxis INR elevated 2.9, Coumadin on hold, IVC filter in place -Protonix GI prophylaxis -Full code -Patient requires medical optimization including treatment of UTI, optimization of respiratory status Lasix, optimization of INR with FFP, optimization of anemia hemoglobin 8.4 with transfusion of PRBC, monitor hemoglobin, monitor INR, monitor hypoxia INR 2.9, with hemoglobin dropped to 8.4, will transfuse 2 units FFP, check INR in the afternoon Anemia, hemoglobin 8.4, likely secondary to femoral fracture, Coumadin, hematoma of left knee, will transfuse 2 units PRBC, 2 units on hold, monitor hemoglobin the afternoon, her hemodynamics UTI, currently on Rocephin CKD stage II Hx of DVT/PE on Coumadin, INR 2.9, continue to hold Coumadin KUB shows IVC filter in place Hypertension Dyslipidemia Hypoxia, and diastolic CHF exacerbation, currently on 5 L, crackles on exam, will receive blood and FFP, will give another 40 mg of IV Lasix twice daily Hx of CVA with residual left sided weakness DVT ppx, currently INR is being reversed, anticoagulation currently contraindicated given anemia Plan for today, transunit FFP, transfuse PRBC, monitor INR, her hemoglobin, diurese, Attestations Medical Necessity Statement*: Patient requires hospitalization and due to left distal femur fracture, elevated INR, anemia, UTI, hypoxia secondary to diastolic CHF, Coding Level of Care Code Acute Medical Information Officer for [facility] Diagnoses Fracture of distal end of femur S72.402A Encounter type: initial encounter Fracture morphology: unspecified fracture morphology Fracture type: closed Laterality: left Diastolic CHF I50.30 Presence of IVC filter Z95.828 Left-sided weakness R53.1 Dyslipidemia E78.5 CVA (cerebral vascular accident) I63.9 Chronic kidney disease, stage II (mild) N18.2 Chronic anticoagulation Z79.01 Elevated liver enzymes R74.8 UTI (urinary tract infection) N39.0 Hypoxia R09.02
--- NOTE | 2021-01-01 12:10 | PM.PN ---
Subjective Subjective: Interval history: The patient was scheduled for surgery this morning, however, her INR increased from 2.2-2.9 and her hemoglobin dropped from 11.9-8.4. Anesthesia had significant concerns about proceeding with a surgical intervention. The patient will be given FFP to address her elevated INR. We are also transfusing her 2 units of packed red blood cells. Hospitalist team will continue to work to optimize her for surgical procedure. She is seen in her bed and is comfortable. She has been in Calderon's traction, but we will change this to only as needed. She remains neurologically intact. Vitals/I&O/Wt Last Vital Signs Temp 98.4 F 01/01/21 11:45 Pulse 71 01/01/21 11:45 Resp 16 01/01/21 11:45 BP 130/57 01/01/21 11:45 Pulse Ox 100 01/01/21 11:45 12/31/20 01/01/21 01/01/21 22:59 06:59 14:59 Intake Total 416 / 416 Output Total 900 / 900 Balance -900 / -850 416 / 416 Weight last 48 hrs Weight 229 lb Weight 229 lb Weight 160 lb (stated) Physical Exam Const: COMMON NORMALS: no acute distress and alert EXAM LIMITATIONS: other limitations (Severe lymphedema) GENERAL APPEARANCE: cooperative, comfortable and Edematous NUTRITIONAL APPEARANCE: obese ORIENTATION/CONSCIOUSNESS: Yes awake and Yes oriented to person HENMT: COMMON NORMALS: normocephalic and atraumatic HEAD & SCALP: normocephalic and atraumatic Eye: GENERAL EYE: appearance normal, both eyes and all related structures Chest: COMMONS NORMALS: normal inspection of the chest Resp: COMMON NORMALS: normal respiratory effort EFFORT & INSPECTION: Yes able to speak in complete sentences and Yes symmetric chest movement Extremity: NARRATIVE EXTREMITY EXAM: Patient has significant deformity in both upper extremities. She has contractures of the fingers in the left hand. There are areas of skin breakdown here as well. Patient has gross lymphedema in both her upper and lower extremities. LEFT LOWER EXTREMITY: Yes upper leg (Knee immobilizer is in place) Left upper leg: Yes inspection (Ecchymosis) and Yes knee joint (Knee immobilizer is in place) Left knee: Yes inspection (Ecchymosis anteriorly) and Yes neurovascular exam (Intact distally) Neuro: SENSORIUM/ORIENTATION: Yes alert and Yes oriented to person Psych: COMMON NORMALS: mental status grossly normal APPEARANCE: Yes grossly normal ATTITUDE: Yes calm and Yes engaged ATTENTION/CONCENTRATION: Yes attention grossly intact Skin: COMMON NORMALS: no rashes or lesions noted GENERAL SKIN EXAM: no rashes or lesions noted Urinary Catheter Management^: Anderson: Cath Placed During This Visit: yes Reason for Continuing Indwelling Catheter: Required Immobilization for Trauma or Surgery or Anesthesia Urinary Catheter Date of Insertion: 12/31/20 Urinary Catheter Time of Insertion: 02:48 Data : 01/01/21 05:45 01/01/21 05:45 Micro: Microbiology 12/31/20 02:45 Urine Culture - Preliminary Urine Catheterized Gram Negative Rods Other CT: I personally reviewed and interpreted this imaging study as follows: My impression: I have reviewed the patient's CT images. Obviously, there is the displacement of the fracture as visualized on plain x-ray imaging, and upon review of the distal femur, there does not appear to be any extension of the fracture intercondylar. There is some comminution at the fracture site. A&P Assessment and plan (1) Supracondylar fracture of left femur: This 70-year-old who lives at home with her fell directly onto her left knee. She was previously admitted in February 2020 for generalized weakness as well. Currently, the patient presents with a supracondylar femur fracture. Unfortunately, this is complicated by the fact that she has severe lymphedema. She has residual weakness on her left side with contractures of her hands and a previous history of DVT with placement of an IVC filter. She presents on Coumadin as well. Secondary to her multiple comorbidities and the fact that she is on Coumadin, we will plan operative intervention when we have appropriate staffing and equipment. This was to have been today, but her INR increased and her hemoglobin decreased. The patient is admitted to the hospitalist service for optimization for surgical intervention. She is obviously very high risk particularly given her multiple comorbidities as listed above. The patient is advised that given her lymphedema and chronic venous stasis issues in addition to this injury, she is at very high risk for infection. She is also at high risk for potential amputation. I have advised her that we we will continue to work to optimize her situation for surgical intervention. CT scan was reviewed as above. There does not appear to be extension into the joint. Calderon's traction was initially utilized, but at this point, we will use it only as needed as she seems more comfortable without it. We will plan for surgery tomorrow afternoon. Status: Acute Qualifiers: Encounter type: initial encounter Fracture type: closed Qualified Code(s): S72.452A - Displaced supracondylar fracture without intracondylar extension of lower end of left femur, initial encounter for closed fracture Attestations Medical Necessity Statement*: Patient continues to require on high risk and comorbidity. Coding Level of Care Code Acute Load Out Person for [facility] Diagnoses Supracondylar fracture of left femur S72.452A Encounter type: initial encounter Fracture type: closed
[2021-01-01] MEDS: ondansetron 2 mg/ML SDV 2 mL 4 MG IVP (13:18)
--- NOTE | 2021-01-01 13:31 | PC.NURSE ---
2nd unit of PRBC 2ND UNIT OF PRBC BEGIN - VITAL SIGNS HAVE REMAINED STABLE THROUGHOUT - PT SEAN 1ST INFUSION WITHOUT DIFFICULTY
[2021-01-01] MEDS: sodium chloride 0.9% (100 ml) 100 ML 125 ML ×2 (16:57)
[2021-01-01] MEDS: potassium chloride ER 20 mEq Tablet 40 MEQ PO (16:59)
--- NOTE | 2021-01-01 17:29 | PC.NURSE ---
END OF SHIFT SUMMARY PT HAS REC'D 2 FFP - 1 VIT K - 2 UNITS OF PRBC - VITAL SIGNS HAVE REMAINED STABLE THROUGHOUT SHIFT - PAIN HAS BEEN WELL CONTROLLED WITH X2 IVP MORPHINE AND 1 IVP ZOFRAN FOR NAUSEA - NO EMESIS UP - PT HAS REC'D A TOTAL OF 2 IVP LASIX WITH GOOD URINE OUTPUT - REMAINS IN KNEE IMMOBILZER WITHOUT BUCKS TRACTION - PT HAS REPORTED AN INCREASE IN COMFORT WITHOUT TRACTION - PPP - SKIN REMAINS WARM AND PINK - BOTH PT AND AWARE OF OR TOMORROW
[2021-01-01 18:47] LABS: Hematocrit 28.8 % (37.0-47.0); Hemoglobin 9.4 g/dL (11.5-15.3)
[2021-01-01 19:00] LABS: INR 1.46 (0.8-1.2)
[2021-01-01] MEDS: atorvastatin 40 mg Tablet PO (22:12)
[2021-01-01 23:19] LABS: Hematocrit 29.4 % (37.0-47.0); Hemoglobin 9.5 g/dL (11.5-15.3)
[2021-01-01 23:33] LABS: INR 1.39 (0.8-1.2)
[2021-01-02] VITALS (18 sets, daily range): BP systolic 84–146; BP diastolic 58–96; PULSE 61–96; RESP 15–22; TEMP 36.6–37.3; O2SAT 91–100
--- NOTE | 2021-01-02 | SCC_ITS ---
Procedure Done: Open reduction internal fixation left comminuted distal supracondylar spiral femur fracture 112.4 seconds of fluoroscopic guidance, for a cumulative dose of 12.99 mGy, was provided to Dr. Degroot by the radiology department. C-arm images of the LEFT knee were saved for the patient's permanent record. [facility]
--- NOTE | 2021-01-02 | XR_ITS ---
WS: [id number] INTRAOPERATIVE TECHNIQUE: 6 Spot fluoroscopic images for intraoperative purposes. FLUOROSCOPY TIME: 112.4 seconds CLINICAL INFORMATION: OR PICS COMPARISON: None. FINDINGS: Plate and screw fixation mid and distal femoral shaft. Hardware appears in good position. Hypertrophi c patella. XR/XR knee LT 1-2V [id number] IMPRESSION: Images obtained for intraoperative purposes.
[2021-01-02] MEDS: morphine 4 mg/mL SDV 1 mL 2 MG IVP ×3 (00:38→10:10)
[2021-01-02 02:16] LABS: Basophils # 0.1 10^3/uL (0.0-0.1); Basophils % 0.7 %; Eosinophils # 0.4 10^3/uL (0.0-0.8); Eosinophils % 4.1 %; Hematocrit 27.5 % (37.0-47.0); Lymphocytes # 1.6 10^3/uL (0.8-4.8); Mean Corpuscular HGB Conc 32.7 g/dL (30.0-36.0); Mean Corpuscular Hemoglobin 30.7 pg (28.0-34.0); Mean Corpuscular Volume 93.9 fL (81-99); Mean Platelet Volume 10.7 fL (7.4-10.4); Monocytes % 11.7 %; Neutrophils # 5.73 10^3/uL (1.8-7.7); Neutrophils % 64.9 %; Nucleated Red Blood Cells % 0 %; Platelet Count 144 10^3/cmm (130-400); Red Blood Count 2.93 10^6/uL (4.1-5.3); Red Cell Distribution Width 14.2 % (12.1-15.1); White Blood Count 8.8 10^3/uL (4.0-10.0)
[2021-01-02 02:27] LABS: INR 1.35 (0.8-1.2)
[2021-01-02 02:43] LABS: NT Pro B Type Natriuretic Pept 1821 pg/mL (0-125); Procalcitonin 0.11 ng/mL (0-0.5)
[2021-01-02 02:54] LABS: Alanine Aminotransferase 56 U/L (0-33); Alkaline Phosphatase 19 IU/L (35-105); Anion Gap 9.9 (5-19); Aspartate Amino Transferase 36 U/L (0-32); Blood Urea Nitrogen 15 mg/dL (8-23); C Reactive Protein 39.4 mg/L (0.0-4.9); Calcium 8.2 mg/dL (8.5-10.5); Carbon Dioxide 35 mmol/L (22-29); Chloride 100 mmol/L (98-107); Globulin 2.7 g/dL (1.3-4.6); Glomerular Filtration Rate 98.8 mL/min (90-130); Glucose 125 mg/dL (65-115); Magnesium 1.7 mg/dL (1.7-2.3); Osmolality Calculated 294 mOsm/kg (285-295); Phosphorus 2.9 mg/dL (2.5-4.5); Potassium 3.9 mmol/L (3.5-5.1); Sodium 141 mmol/L (136-145); Total Protein 5.7 g/dL (6.6-8.7)
--- NOTE | 2021-01-02 06:21 | PC.NURSE ---
Shift Note Frequent safety and comfort rounds continue. Orders and/or nursing care completed as indicated. Patient monitored for response to intervention and treatment(s). Education provided includes using of call light when in pain. Patient and/or insurance follow up representative verbalized understanding but had to be reminded of call light at each rounding check. Patient had intermittent pain in left leg throughout the night and requested to have her leg put back in the bucks traction. Will continue to monitor.
[2021-01-02] MEDS: cefTRIAXone 1,000 MG in sodium chloride 0.9% (plus) 50 ML 100 MG IV (10:19)
[2021-01-02] MEDS: citalopram 20 mg Tablet PO (10:19)
[2021-01-02] MEDS: ferrous sulfate EC 325 mg Tablet PO (10:20)
[2021-01-02] MEDS: metoprolol tartrate 25 mg Tablet 12.5 MG PO (10:20)
[2021-01-02] MEDS: pantoprazole DR 40 mg Tablet PO (10:20)
[2021-01-02] MEDS: FUROsemide 10 mg/mL SDV 4mL 40 MG IVP (10:30)
--- NOTE | 2021-01-02 12:44 | P.PN_ITS ---
Subjective Subjective: Interval history: Patient was seen this morning, her is at bedside, she is awaiting surgery this afternoon, she tells me that her pain is under control, currently on 3 L, afebrile, denies any chest pain, no shortness of breath, Vitals/I&O/Wt Last Vital Signs Temp 98.3 F 01/02/21 11:51 Pulse 65 01/02/21 11:51 Resp 18 01/02/21 11:51 BP 137/63 01/02/21 11:51 Pulse Ox 91 01/02/21 11:51 01/01/21 01/02/21 01/02/21 22:59 06:59 14:59 Intake Total 845 / 1261 50 / 50 Output Total 850 / 1950 1050 / 3000 Balance -5 / -689 -1050 / -1739 50 / 50 Weight last 48 hrs Weight 103.873 kg Physical Exam Const: COMMON NORMALS: no acute distress and patient oriented x3 GENERAL APPEARANCE: cooperative NUTRITIONAL APPEARANCE: obese Resp: COMMON NORMALS: normal respiratory effort, No retractions, No use of accessory muscles and clear to auscultation bilaterally AUSCULTATION: clear to auscultation bilaterally Cardio: COMMON NORMALS: regular rate, regular rhythm, S1 normal heart sound present and S2 normal heart sound present RATE: regular rate RHYTHM: regular rhythm HEART SOUNDS: S1 normal heart sound present and S2 normal heart sound present GI: COMMON NORMALS: Normal to inspection, nondistended, normoactive bowel so unds present, Soft to palpation and non-tender PALPATION: Yes Soft to palpation OTHER: Obese abdomen Extremity: COMMON NORMALS: no pedal edema NARRATIVE EXTREMITY EXAM: Bilateral lower extremity lymphedema Left lower extremity in a binder, under Calderon's traction Neuro: COMMON NORMALS: patient oriented x3 Skin: NARRATIVE SKIN EXAM: Bruising over right baptism Significant bruising present over left knee Urinary Catheter Management^: Anderson: Cath Placed During This Visit: yes Reason for Continuing Indwelling Catheter: Perioperative Use in Selected Surgeries Urinary Catheter Date of Insertion: 12/31/20 Urinary Catheter Time of Insertion: 02:48 Data : 01/02/21 02:07 01/02/21 02:07 Micro: Microbiology 12/31/20 02:45 Urine Culture - Preliminary Urine Catheterized Gram Negative Rods A&P Assessment and plan (1) Fracture of distal end of femur: Status: Acute Qualifiers: Encounter type: initial encounter Fracture morphology: unspecified fracture morphology Fracture type: closed Laterality: left Qualified Code(s): S72.402A - Unspecified fracture of lower end of left femur, initial encounter for closed fracture (2) Diastolic CHF: Status: Acute (3) Presence of IVC filter: Status: Acute (4) Left-sided weakness: Status: Acute (5) Dyslipidemia: Status: Acute (6) CVA (cerebral vascular accident): Status: Acute (7) Chronic kidney disease, stage II (mild): Status: Acute (8) Chronic anticoagulation: Status: Acute (9) Elevated liver enzymes: Status: Acute (10) UTI (urinary tract infection): Status: Acute (11) Hypoxia: Status: Acute Left distal femoral fracture -Currently under Calderon's traction -Dr. Degroot on consult, plans for surgery this afternoon -Pain control on morphine -DVT prophylaxis INR 1.35, Coumadin on hold, IVC filter in place -DVT prophylaxis, currently on hold, due to anemia -Protonix GI prophylaxis -Full code INR 1.35, with hemoglobin dropped to 8.4, will transfuse 2 units FFP, check INR in the afternoon Anemia, hemoglobin 9.0, likely secondary to femoral fracture, Coumadin, hematoma of left knee, status post 2 units PRBC, 2 units on hold, monitor hemoglobin, her hemodynamics UTI, currently on Rocephin, urine cultures gram-negative rods CKD stage II Hx of DVT/PE on Coumadin, INR 1.35, continue to hold Coumadin KUB shows IVC filter in place Hypertension Dyslipidemia Hypoxia, and diastolic CHF exacerbation, currently on 5 L, crackles on exam, will give another 40 mg IV Lasix Hx of CVA with residual left sided weakness DVT ppx, currently INR is being reversed, anticoagulation currently contraindicated given anemia Plan for today, 1 dose of Lasix, continue antibiotics, plans for surgery this afternoon Attestations Medical Necessity Statement*: Patient requires hospitalization for left distal femur fracture, anemia, elevated INR, UTI, fluid overload Coding Level of Care Code Acute Cargo Service Supervisor for [facility] Diagnoses Fracture of distal end of femur S72.402A Encounter type: initial encounter Fracture morphology: unspecified fracture morphology Fracture type: closed Laterality: left Diastolic CHF I50.30 Presence of IVC filter Z95.828 Left-sided weakness R53.1 Dyslipidemia E78.5 CVA (cerebral vascular accident) I63.9 Chronic kidney disease, stage II (mild) N18.2 Chronic anticoagulation Z79.01 Elevated liver enzymes R74.8 UTI (urinary tract infection) N39.0 Hypoxia R09.02
[2021-01-02] MEDS: sodium chloride 0.9% 1,000 ML 30 ML IV (16:00)
--- NOTE | 2021-01-02 16:15 | W.PM.OPSUD ---
Surgery/Procedure H&P Update DATE OF PROCEDURE: January 02, 2021 DATE H&P PERFORMED: 12/30/20 H&P UPDATE INFORMATION: I have reviewed H&P completed within last 30 days, I have examined patient prior to procedure, No changes to prior documentation and H&P is in [facility] EMR on date indicated PREOP DIAGNOSIS: Left distal femur fracture, supracondylar PLANNED PROCEDURE: Operation Date: 01/01/21 08:30 Proposed Procedures p ORIF Femur(Left) - Kathy Degroot MD Operation Date: 01/02/21 16:00 Proposed Procedures p ORIF Femur(Left) - Kathy Degroot MD Related Problem List Diagnoses (1) Supracondylar fracture of left femur: Qualifiers: Encounter type: initial encounter Fracture type: closed Qualified Code(s): S72.452A - Displaced supracondylar fracture without intracondylar extension of lower end of left femur, initial encounter for closed fracture
[2021-01-02] MEDS: acetaminophen 1,000 MG/100 ML PIGGYBACK 400 MG IV ×2 (16:17→22:47)
[2021-01-02] MEDS: CELEcoxib 200 mg Capsule 400 MG PO (16:34)
--- NOTE | 2021-01-02 17:37 | P.ANESUD_ITS ---
Pre-Anesthetic Update Pre-Anesthetic Assessment: Date of Surgery/Procedure: 01/02/21 Preop Madai gnosis: Left distal femur fracture, supracondylar Proposed Procedure: Operation Date: 01/01/21 08:30 Proposed Procedures p ORIF Femur(Left) - Kathy Degroot MD Operation Date: 01/02/21 16:00 Proposed Procedures p ORIF Femur(Left) - Kathy Degroot MD Any changes to Pre-Anesthetic Assessment?: No Last Intake: Intake Last Liquid Date 01/01/21 Last Liquid Time 12:00 Last Solid Date 01/01/21 Last Solid Time 08:00 Labs Last 48hrs: Laboratory Results - last 48 hr 12/31/20 01/01/21 01/01/21 12:33 05:45 05:45 WBC 10.2 H RBC 2.74 L Hgb 8.4 L Hct 26.4 L MCV 96.4 MCH 30.7 MCHC 31.8 RDW 13.6 Plt Count 192 MPV 10.7 H Neut % (Auto) 65.1 Lymph % (Auto) 18.4 [place]arrow % (Auto) 14.3 Eos % (Auto) 0.9 Baso % (Auto) 0.8 Neut # (Auto) 6.68 Lymph # (Auto) 1.9 [place] # (Auto) 1.5 H Eos # (Auto) 0.1 Baso # (Auto) 0.1 Nucleated RBC % (a uto) 0 Nucleated RBCs # 0.0 PT INR Sodium 144 Potassium 3.5 Chloride 106 Carbon Dioxide 32 H Anion Gap 9.5 BUN 15 Creatinine 0.6 GFR Calculation 98.8 Glucose 106 Calculated Osmolal ity 299 H Calcium 8.3 L Phosphorus 3.2 Magnesium 1.8 Total Bilirubin 0.7 AST 68 H ALT 96 H Alkaline Phosphata se 15 L C-Reactive Protein 29.3 H NT-Pro-B Natriuret Pep Total Protein 5.9 L Albumin 3.2 L Globulin 2.7 Procalcitonin SARS-CoV-2 Ag (Rap id) Blood Type O Positive Rho(D) Type Positive / 4+ Antibody Screen Negative Crossmatch See Detail 01/01/21 01/01/21 01/01/21 05:45 05:45 07:56 WBC RBC Hgb Hct MCV MCH MCHC RDW Plt Count MPV Neut % (Auto) Lymph % (Auto) B[place] % (Auto) Eos % (Auto) Baso % (Auto) Neut # (Auto) Lymph # (Auto) [place] # (Auto) Eos # (Auto) Baso # (Auto) Nucleated RBC % (a uto) Nucleated RBCs # PT 30.80 H INR 2.90 H Sodium Potassium Chloride Carbon Dioxide Anion Gap BUN Creatinine GFR Calculation Glucose Calculated Osmolal ity Calcium Phosphorus Magnesium Total Bilirubin AST ALT Alkaline Phosphata se C-Reactive Protein NT-Pro-B Natriuret Pep 604 H Total Protein Albumin Globulin Procalcitonin 0.12 SARS-CoV-2 Ag (Rap id) Negative Blood Type Rho(D) Type Antibody Screen Crossmatch 01/01/21 01/01/21 01/01/21 18:37 18:37 23:13 WBC RBC Hgb 9.4 L 9.5 L Hct 28.8 L 29.4 L MCV MCH MCHC RDW Plt Count MPV Neut % (Auto) Lymph % (Auto) B[place] % (Auto) Eos % (Auto) Baso % (Auto) Neut # (Auto) Lymph # (Auto) [place] # (Auto) Eos # (Auto) Baso # (Auto) Nucleated RBC % (a uto) Nucleated RBCs # PT 18.20 H D INR 1.46 H Sodium Potassium Chloride Carbon Dioxide Anion Gap BUN Creatinine GFR Calculation Glucose Calculated Osmolal ity Calcium Phosphorus Magnesium Total Bilirubin AST ALT Alkaline Phosphata se C-Reactive Protein NT-Pro-B Natriuret Pep Total Protein Albumin Globulin Procalcitonin SARS-CoV-2 Ag (Rap id) Blood Type Rho(D) Type Antibody Screen Crossmatch 01/01/21 01/02/21 01/02/21 23:13 02:07 02:07 WBC 8.8 RBC 2.93 L Hgb 9.0 L Hct 27.5 L MCV 93.9 MCH 30.7 MCHC 32.7 RDW 14.2 Plt Count 144 MPV 10.7 H Neut % (Auto) 64.9 Lymph % (Auto) 18.0 [place] % (Auto) 11.7 Eos % (Auto) 4.1 Baso % (Auto) 0.7 Neut # (Auto) 5.73 Lymph # (Auto) 1.6 [place] # (Auto) 1.0 H Eos # (Auto) 0.4 Baso # (Auto) 0.1 Nucleated RBC % (a uto) 0 Nucleated RBCs # 0.0 PT 17.40 H INR 1.39 H Sodium 141 Potassium 3.9 Chloride 100 Carbon Dioxide 35 H Anion Gap 9.9 BUN 15 Creatinine 0.6 GFR Calculation 98.8 Glucose 125 H Calculated Osmolal ity 294 Calcium 8.2 L Phosphorus 2.9 Magnesium 1.7 Total Bilirubin 1.0 AST 36 H ALT 56 H Alkaline Phosphata se 19 L C-Reactive Protein 39.4 H NT-Pro-B Natriuret Pep 1821 H Total Protein 5.7 L Albumin 3.0 L Globulin 2.7 Procalcitonin 0.11 SARS-CoV-2 Ag (Rap id) Blood Type Rho(D) Type Antibody Screen Crossmatch 01/02/21 02:07 WBC RBC Hgb Hct MCV MCH MCHC RDW Plt Count MPV Neut % (Auto) Lymph % (Auto) [place] % (Auto) Eos % (Auto) Baso % (Auto) Neut # (Auto) Lymph # (Auto) [place] # (Auto) Eos # (Auto) Baso # (Auto) Nucleated RBC % (a uto) Nucleated RBCs # PT 17.00 H INR 1.35 H Sodium Potassium Chloride Carbon Dioxide Anion Gap BUN Creatinine GFR Calculation Glucose Calculated Osmolal ity Calcium Phosphorus Magnesium Total Bilirubin AST ALT Alkaline Phosphata se C-Reactive Protein NT-Pro-B Natriuret Pep Total Protein Albumin Globulin Procalcitonin SARS-CoV-2 Ag (Rap id) Blood Type Rho(D) Type Antibody Screen Crossmatch Vitals: Temperature 98.3 F 01/02/21 15:51 Temperature Source Temporal Artery S can 01/02/21 15:51 Pulse Rate 72 01/02/21 15:51 Pulse Rhythm 01/02/21 08:00 Pulse Strength 1+ Faint 01/02/21 08:00 Respiratory Rate 16 01/02/21 15:51 Respiratory Effort Non-Labored 01/02/21 10:10 Respiratory Depth Normal 01/02/21 10:10 Respiratory Patter n 01/02/21 08:00 Blood Pressure 118/68 01/02/21 15:51 Blood Pressure Sariah n 84 01/02/21 15:51 Blood Pressure Pos ition Semi Fowlers 01/02/21 11:51 Pulse Oximetry 95 01/02/21 15:51 Oxygen Delivery Me thod 01/02/21 15:51 Oxygen Flow Rate 3 01/02/21 15:51 Sepsis Recent Feve r Within 48 Hours No 12/30/20 18:09 Sepsis New/Unexpla ined Change in Men shana Status No 12/30/20 18:09 Exam: Pre-Anes Outpt Exam: alert, oriented x 3, clear to auscultation bilaterally and regular rate & rhythm Additional Exam Findings (including area of procedure): Plan SAB, INR improved. Cardiac Studies: No Data to Display
[2021-01-02] MEDS: vancomycin 1,000 MG in sodium chloride 0.9% 250 ML 250 MG IV ×2 (17:44→23:34)
[2021-01-02] MEDS: ceFAZolin 1,000 mg SDV 1000 MG IRRIGATION (19:02)
[2021-01-02] MEDS: vancomycin 1,000 MG SDV 2000 MG XX (19:02)
--- NOTE | 2021-01-02 19:59 | PC.NURSE ---
shift summary pt stayed in bucks traction until she went down for surgery, pt had PRN pain mediations twice this shift. pt had good urine output, no nausea this shift. no BM this shift.
--- NOTE | 2021-01-02 20:56 | SUR.OPER ---
updated of surgical status
--- NOTE | 2021-01-02 21:47 | P.OP_ITS ---
Operative Report Date of procedure: January 02, 2021 Pre-op Diagnosis: Left distal femur fracture, supracondylar Post-op diagnosis: same Post-op Findings: Comminuted displaced supracondylar femur fracture with bone loss anteriorly at the level of the knee and severe lymphedema with morbid obesity and with severe degenerative osteoarthritis of the left knee and bone loss lateral tibial plateau Procedure Done: Open reduction internal fixation left comminuted distal supracondylar spiral femur fracture Implants: The [place] 8 hole left lateral femoral plate with multiple locking screws and Vitoss 10 cc bone graft Specimens removed/disposition: None Pathology: none sent Surgeon: Kathy Degroot Tack Picker: [facility] operating room technicians Anesthesia: General (LMA, ASA 4) Estimated blood loss (mL): 2,250 Estimated blood loss: Including fracture hematoma IV fluids (mL): 2,950 IV fluids: Including 2000 mL of crystalloid, 2 units of packed red blood cells, and 250 mL of albumin Urine output (mL): 300 Complications: None Findings: Bone loss with severe degenerative osteoarthritic change within the le ft knee, bone loss from the tibial plateau chronically, void anteriorly at the level of the knee, and comminution at the fracture site. Condition: stable Disposition: PACU (Then return to floor.) Brief History: Doris Clarke is a 70 year old female who states she tripped and fell just prior to admission. She landed on her left knee and hit her head as well. She has not been able to ambulate since the time of her fall. She states her pain is 8 out of 10. The patient currently is on Coumadin for history of stroke. She denied any syncopal episode or other reason for her fall. Patient has multiple comorbidities including morbid obesity, chronic kidney disease, stage II, history of cerebrovascular accident with left-sided weakness. She also has an elevated hemidiaphragm and severe lymphedema. There is moderate pulmonary arterial systolic hypertension with presence of a previous IVC filter and venous stasis dermatitis. All of these things complicate the plan for the surgical undertaking of open reduction internal fixation. She will be at a high infection risk as well as risk for DVT. We will need to explore the possibility of placement of an IVC filter as she previously has history of DVT. Procedure: Patient was seen in the preoperative holding area and the surgical procedure was discussed with her . Patient was brought to the operating theater and placed on the operating room table. After undergoing adequate general anesthesia per LMA, ASA 4, the patient's left lower extremity was prepped and draped in usual fashion utilizing DuraPrep. The leg was draped free. Fluoroscopy was used throughout the surgical procedure. A surgical pause was performed. At the time of the surgical pause we identified the site and side of surgery as well as the patient's identity and availability of equipment. We also confirmed appropriate administration of IV antibiotics. Following the above, an incision was made centering over the patient's supracondylar left femur fracture. The incision was continued proximally and distally as necessary to allow access to the fracture site. We used fluoroscopic guidance to choose the plate as well as to determine the length of the incision. Manual traction was placed throughout the procedure as well in an attempt to reduce the fracture. It was a very difficult reduction, and there was significant bone loss anteriorly along the area of the trochlear groove. We were able to reduce the fracture nearly anatomically. This was held with clamps while we evaluated the fracture. Secondary to the instability of the fracture and the significant size of the patient's leg, we were not able to obtain a lateral during the surgical procedure. The [place] 8 hole left lateral supracondylar femoral plate was attached with standard technique including locking the screws. Soft tissue dissection was significant, but we were able to address the fracture. Once the plate was in position, we were able to evaluate the fracture in AP and lateral planes. We were able to lift the leg up over the patient's other leg. The patient had significant lymphedema which caused concerns for risk of infection and also may or weight across the leg during the rehabilitation process. The fracture was noted to be stable at the time the patient was transferred from the operating room table to her bed. Once the plate was appropriately attached, and the x-rays confirmed appropriate position, we irrigated the wound. Vitoss bone graft was then placed in position as well into the void in the supracondylar area of the femur through the area to slightly superior to the trochlear groove. Once this was in position, we were able to close the fascial tissues. We closed the wound with 0 Vicryl in the fascial tissues, with a combination of 0 Vicryl and 2-0 Monocryl in the subcutaneous tissues, and the skin was closed with skin azucena. Vancomycin and Surgi-Mg was placed into the subcutaneous tissues. Skin was closed with skin azucena. A silver impregnated dressing was placed secondary to the concern for infection. The dressing was then completed with sterile soft roll and an Reinaldo wrap. The patient was then placed back into her knee immobilizer and is to remain toe-touch weightbearing only. The procedure was well tolerated without complication. Patient was returned to the floor in a satisfactory condition. Associated Problem List Diagnoses (1) Supracondylar fracture of left femur: Qualifiers: Encounter type: initial encounter Fracture type: closed Qualified Code(s): S72.452A - Displaced supracondylar fracture without intracondylar extension of lower end of left femur, initial encounter for closed fracture (2) Left-sided weakness: (3) Adult BMI 40.0-44.9 kg/sq m:
--- NOTE | 2021-01-02 22:35 | PC.NURSE ---
Patient is back to med surg from PACU surgery. Patient wanted this nurse to call her , Regino, to let him know that she is back to her room on med surg. Regino states that Dr Degroot had already called and asked him to bring her home walker that has arm on it when he comes to see her tomorrow. Regino states he will bring it.
[2021-01-03] VITALS (10 sets, daily range): BP systolic 94–149; BP diastolic 60–79; PULSE 70–94; RESP 16–18; TEMP 36.7–37.6; O2SAT 92–94
[2021-01-03] MEDS: morphine 4 mg/mL SDV 1 mL 2 MG IVP (03:53)
[2021-01-03 05:09] LABS: Basophils # 0.1 10^3/uL (0.0-0.1); Basophils % 0.5 %; Eosinophils % 0.3 %; Hematocrit 24.5 % (37.0-47.0); Lymphocytes # 1.7 10^3/uL (0.8-4.8); Lymphocytes % 15.6 %; Mean Corpuscular HGB Conc 32.7 g/dL (30.0-36.0); Mean Corpuscular Volume 88.8 fL (81-99); Mean Platelet Volume 11.1 fL (7.4-10.4); Monocytes # 1.4 10^3/uL (0.2-0.9); Monocytes % 12.4 %; Neutrophils # 7.73 10^3/uL (1.8-7.7); Neutrophils % 70.7 %; Nucleated Red Blood Cells % 0 %; Platelet Count 172 10^3/cmm (130-400); Red Blood Count 2.76 10^6/uL (4.1-5.3); Red Cell Distribution Width 18.2 % (12.1-15.1); White Blood Count 10.9 10^3/uL (4.0-10.0)
[2021-01-03 05:36] LABS: NT Pro B Type Natriuretic Pept 1181 pg/mL (0-125); Procalcitonin 0.16 ng/mL (0-0.5)
[2021-01-03 05:42] LABS: INR 1.22 (0.8-1.2)
[2021-01-03 05:47] LABS: Alanine Aminotransferase 50 U/L (0-33); Albumin Level 2.7 g/dL (3.5-5.2); Alkaline Phosphatase 17 IU/L (35-105); Anion Gap 13.6 (5-19); Aspartate Amino Transferase 46 U/L (0-32); Blood Urea Nitrogen 17 mg/dL (8-23); Calcium 6.8 mg/dL (8.5-10.5); Carbon Dioxide 30 mmol/L (22-29); Chloride 99 mmol/L (98-107); Globulin 2.3 g/dL (1.3-4.6); Glomerular Filtration Rate 98.8 mL/min (90-130); Glucose 120 mg/dL (65-115); Magnesium 1.4 mg/dL (1.7-2.3); Osmolality Calculated 291 mOsm/kg (285-295); Phosphorus 3.4 mg/dL (2.5-4.5); Potassium 3.6 mmol/L (3.5-5.1); Sodium 139 mmol/L (136-145); Total Bilirubin 1.6 mg/dL (0.15-1.2)
[2021-01-03] MEDS: acetaminophen 1,000 MG/100 ML PIGGYBACK 400 MG IV ×2 (06:24→14:47)
--- NOTE | 2021-01-03 06:31 | PC.NURSE ---
Shift Note Frequent safety and comfort rounds continue. Orders and/or nursing care completed as indicated. Patient monitored for response to intervention and treatment(s). Education provided includes informing nurse of when in pain and asking for pain medications. Patient verbalized understanding. Patient received 2 scheduled doses of IV tylenol and had morphine once during this shift. Patient had first ice applied to her knee and states this has helped ease the pain in her leg. Patient continued to ask for ice and food during this shift. Patient had ice chips and had a cup of chicken broth with patient tolerating well. Patient is currently resting comfortably in bed. Will continue to monitor.
[2021-01-03] MEDS: citalopram 20 mg Tablet PO (09:14)
[2021-01-03] MEDS: pantoprazole DR 40 mg Tablet PO (09:14)
[2021-01-03] MEDS: CELEcoxib 200 mg Capsule PO ×2 (09:14→17:16)
[2021-01-03] MEDS: ferrous sulfate EC 325 mg Tablet PO (09:15)
[2021-01-03] MEDS: metoprolol tartrate 25 mg Tablet 12.5 MG PO ×2 (09:15→17:16)
--- NOTE | 2021-01-03 09:27 | XRR_ITS ---
PROCEDURE INFORMATION: Exam: XR Left Knee Exam date and time: 01/03/2021 9:27 AM Age: 70 years old Clinical indication: Screening exam; Post-op verification; Prior surgery; Surgery date: Post-operative (0-2 days); Additional info: Post-op verification, May remove immobilizer to perform XR TECHNIQUE: Imaging protocol: XR Left knee. Views: 1 or 2 views. COMPARISON: OT XR knee LT 1-2V [id number] 01/02/2021 8:34 PM FINDINGS: Bones/joints: The patient has undergone recent insertion of a metal plate and multiple screws to transfix a comminuted fracture of the distal femur. It appears to be in satisfactory position. Severe degenerative changes are present in the left knee joint. Soft tissues: Gas is present in the soft tissues from the recent surgery. There are numerous chronic soft tissue calcifications. XR/XR knee LT 1-2V [id number] IMPRESSION: Status post internal fixation of the left femur fracture in satisfactory position.
--- NOTE | 2021-01-03 09:42 | ANE.PACU2 ---
Inpatient post-anesthesia follow up: Airway intact: Yes Vital signs: Temperature 98.2 F Pulse Rate [Bilate ral] 88 Pulse Rate 90 Respiratory Rate 18 Blood Pressure [Ri ght Radial 121/50 Artery] Blood Pressure 127/69 Pulse Oximetry 94 Oxygen Delivery Me thod [ Nasal Cannula Current Rate & Del andrew] Oxygen Delivery Me thod Room Air Oxygen Flow Rate [ Rate & 3 Delivery Changed T o] Oxygen Flow Rate [ Current Rate 5 & Delivery] Oxygen Flow Rate 7 Fraction of Inspir ed Oxygen Hydration adequate: Yes Nausea and vomiting: No Pain level: 2 Mental status: Baseline
[2021-01-03] MEDS: oxyCODONE 5 mg IR Tab/Cap PO (09:53)
[2021-01-03] MEDS: cefTRIAXone 1,000 MG in sodium chloride 0.9% (plus) 50 ML 100 MG IV (10:14)
--- NOTE | 2021-01-03 10:26 | PC.SOCIAL ---
IMM Update pg 2 of IMM updated and reviewed w/ patient. Copy provided t patient.
[2021-01-03] MEDS: warfarin 3 mg Tablet PO (14:46)
--- NOTE | 2021-01-03 17:11 | P.PN_ITS ---
Subjective Subjective: Interval history: No new clinical events overnight. No fever, chills, nausea or vomiting. Vitals/I&O/Wt Last Vital Signs Temp 98.2 F 01/03/21 16:00 Pulse 89 01/03/21 16:00 Resp 17 01/03/21 16:00 BP 138/72 01/03/21 16:00 Pulse Ox 92 01/03/21 16:00 01/03/21 01/03/21 01/03/21 06:59 14:59 22:59 Intake Total 450 / 3910 1130 / 1130 100 / 1230 Output Total 600 / 4800 Balance -150 / -890 1130 / 1130 100 / 1230 Physical Exam Narrative: EXAM NARRATIVE: General : alert however drowsy HEENT : grossly unremarkable CVS ; NSR Chest : Non-labored respiration Abd; Soft, nt Ext no edema Urinary Catheter Management^: Anderson: Cath Placed During This Visit: yes, but has since been removed by the nurse Reason for Continuing Indwelling Catheter: Perioperative Use in Selected Surgeries Urinary Catheter Date of Insertion: 01/02/21 Urinary Catheter Time of Insertion: 18:25 Date Urinary Catheter Removed: 01/02/21 Time Urinary Catheter Discontinued: 18:10 Data : 01/03/21 05:00 01/03/21 05:00 Micro: Microbiology 12/31/20 02:45 Urine Culture - Final Urine Catheterized Escherichia coli A&P Assessment and plan (1) Fracture of distal end of femur: Status: Acute Qualifiers: Encounter type: initial encounter Fracture morphology: unspecified fracture morphology Fracture type: closed Laterality: left Qualified Code(s): S72.402A - Unspecified fracture of lower end of left femur, initial encounter for closed fracture (2) Diastolic CHF: Status: Acute (3) Presence of IVC filter: Status: Acute (4) Left-sided weakness: Status: Acute (5) Dyslipidemia: Status: Acute (6) CVA (cerebral vascular accident): Status: Acute (7) Chronic kidney disease, stage II (mild): Status: Acute (8) Chronic anticoagulation: Status: Acute (9) Elevated liver enzymes: Status: Acute (10) UTI (urinary tract infection): Status: Acute (11) Hypoxia: Status: Acute Left distal femoral fracture -Post op management per ortho -Dr. Degroot on consult, plans for surgery this afternoon -Pain control on morphine -DVT prophylaxis INR 1.35, Coumadin on hold, IVC filter in place -DVT prophylaxis, currently on hold, due to anemia -Protonix GI prophylaxis -Full code Anemia, hemoglobin 9.0, likely secondary to femoral fracture, Coumadin, hematoma of left knee, status post 2 units PRBC, 2 units on hold, monitor hemoglobin, her hemodynamics UTI, currently on Rocephin, urine cultures gram-negative rods CKD stage II Hx of DVT/PE on Coumadin, INR 1.35, continue to hold Coumadin KUB shows IVC filter in place Hypertension Dyslipidemia Hypoxia, and diastolic CHF exacerbation, currently on 5 L, crackles on exam, will give another 40 mg IV Lasix Hx of CVA with residual left sided weakness DVT ppx Attestations Medical Necessity Statement*: will continue current hospitalization for post op management Time Spent in Patient Care: Greater than 35 minutes (>than 50% of time spen t in counselling and/or direct pt care on unit) . Coding Level of Care Code Acute School Counsellor for Martín Curiel Diagnoses Fracture of distal end of femur S72.402A Encounter type: initial encounter Fracture morphology: unspecified fracture morphology Fracture type: closed Laterality: left Diastolic CHF I50.30 Presence of IVC filter Z95.828 Left-sided weakness R53.1 Dyslipidemia E78.5 CVA (cerebral vascular accident) I63.9 Chronic kidney disease, stage II (mild) N18.2 Chronic anticoagulation Z79.01 Elevated liver enzymes R74.8 UTI (urinary tract infection) N39.0 Hypoxia R09.02
--- NOTE | 2021-01-03 18:58 | PC.NURSE ---
shift summary pt has not complained of pain except this am after her x ray. pt pain has been under control with p.o pain medication. no BM this shift.
[2021-01-03] MEDS: atorvastatin 40 mg Tablet PO (21:41)
[2021-01-04] VITALS (9 sets, daily range): BP systolic 96–168; BP diastolic 63–79; PULSE 59–101; RESP 16–20; TEMP 36.6–37.1; O2SAT 91–94
[2021-01-04 04:05] LABS: INR 1.12 (0.8-1.2)
--- NOTE | 2021-01-04 05:25 | PC.NURSE ---
Shift Note Frequent safety and comfort rounds continue. Orders and/or nursing care completed as indicated. Patient monitored for response to intervention and treatment(s). Education provided includes[neurovascular assessments, oxygen safety, using call light if in need, and medication administration]. Patient and/or patient financial representative verbalized understanding. Patient has rested well tonight with no events. No pain medication was required this shift. Patient is still unable to lift affected extremity.
[2021-01-04] MEDS: oxyCODONE 5 mg IR Tab/Cap PO ×2 (09:03→19:55)
[2021-01-04] MEDS: metoprolol tartrate 25 mg Tablet 12.5 MG PO ×2 (09:06→17:40)
[2021-01-04] MEDS: citalopram 20 mg Tablet PO (09:06)
[2021-01-04] MEDS: ferrous sulfate EC 325 mg Tablet PO (09:07)
[2021-01-04] MEDS: pantoprazole DR 40 mg Tablet PO (09:07)
[2021-01-04] MEDS: CELEcoxib 200 mg Capsule PO ×2 (09:09→17:40)
[2021-01-04] MEDS: cefTRIAXone 1,000 MG in sodium chloride 0.9% (plus) 50 ML 100 MG IV (10:11)
--- NOTE | 2021-01-04 13:09 | P.PN_ITS ---
Subjective Subjective: Interval history: Patient is seen today with her . He had had intentions of taking her home with him, however, upon exploring the option of a Sergey lift, he is concerned that he will not be able to manage her at home. Therefore, he has agreed upon [facility] as an acceptable alternative. coordinator of health services is working on this. Vitals/I&O/Wt Last Vital Signs Temp 98.1 F 01/04/21 13:01 Pulse 73 01/04/21 13:01 Resp 17 01/04/21 13:01 BP 119/75 01/04/21 13:01 Pulse Ox 91 01/04/21 13:01 01/03/21 01/04/21 01/04/21 22:59 06:59 14:59 Intake Total 1060 / 2190 350 / 350 Output Total 300 / 300 100 / 400 Balance 760 / 1890 -100 / 1790 350 / 350 Physical Exam Const: COMMON NORMALS: no acute distress and alert EXAM LIMITATIONS: other limitations (Severe lymphedema) GENERAL APPEARANCE: cooperative, comfortable and Edematous NUTRITIONAL APPEARANCE: obese ORIENTATION/CONSCIOUSNESS: Yes awake and Yes oriented to person HENMT: COMMON NORMALS: normocephalic and atraumatic HEAD & SCALP: normocephalic and atraumatic Eye: GENERAL EYE: appearance normal, both eyes and all related structures Chest: COMMONS NORMALS: normal inspection of the chest Resp: COMMON NORMALS: normal respiratory effort EFFORT & INSPECTION: Yes able to speak in complete sentences and Yes symmetric chest movement Extremity: NARRATIVE EXTREMITY EXAM: Patient has significant deformity in both upper extremities. She has contractures of the fingers in the left hand. There are areas of skin breakdown here as well. Patient has gross lymphedema in both her upper and lower extremities. LEFT LOWER EXTREMITY: Yes upper leg (Reinaldo wrap remains in place. The dressing is dry. ) Left upper leg: Yes inspection (Immobilizer is in place.) and Yes knee joint (No significant complaints of discomfort.) Left knee: Yes neurovascular exam (Intact distal to the surgical and fracture site per patient normal) Neuro: SENSORIUM/ORIENTATION: Yes alert and Yes oriented to person Psych: COMMON NORMALS: mental status grossly normal APPEARANCE: Yes grossly normal ATTITUDE: Yes calm and Yes engaged ATTENTION/CONCENTRATION: Yes attention grossly intact Skin: COMMON NORMALS: no rashes or lesions noted GENERAL SKIN EXAM: no ra shes or lesions noted Urinary Catheter Management^: Anderson: Cath Placed During This Visit: yes, but has since been removed by the nurse Reason for Continuing Indwelling Catheter: Required Immobilization for Trauma or Surgery or Anesthesia Urinary Catheter Date of Insertion: 01/02/21 Urinary Catheter Time of Insertion: 18:25 Date Urinary Catheter Removed: 01/02/21 Time Urinary Catheter Discontinued: 18:10 Data : 01/03/21 05:00 01/03/21 05:00 A&P Assessment and plan (1) Supracondylar fracture of left femur: This 70-year-old who lives at home with her fell directly onto her left knee. She was previously admitted in February 2020 for generalized weakness as well. Currently, the patient presents with a supracondylar femur fracture. Unfortunately, this is complicated by the fact that she has severe lymphedema. She has residual weakness on her left side with contractures of her hands and a previous history of DVT with placement of an IVC filter. She presents on Coumadin as well. Patient underwent surgical repair of her fracture. She has done well postoperatively. She is working with physical therapy. She will likely require fpc at the time of discharge, and her has agreed to this. Her H&H has remained stable at this point. Status: Acute Qualifiers: Encounter type: initial encounter Fracture type: closed Qualified Code(s): S72.452A - Displaced supracondylar fracture without intracondylar extension of lower end of left femur, initial encounter for closed fracture (2) Left-sided weakness: Status: Acute (3) Adult BMI 40.0-44.9 kg/sq m: Status: Acute Attestations Medical Necessity Statement*: Patient requires ongoing hospitalization following open reduction internal fixation of left supracondylar femur fracture Coding Level of Care Code Acute International Account Executive for g Fwd Diagnoses Supracondylar fracture of left femur S72.452A Encounter type: initial encounter Fracture type: closed Left-sided weakness R53.1 Adult BMI 40.0-44.9 kg/sq m Z68.41
[2021-01-04] MEDS: warfarin 3 mg Tablet PO (15:58)
--- NOTE | 2021-01-04 20:49 | P.PN_ITS ---
Subjective Subjective: Interval history: No new clinical events overnight. no fever or chills, no nausea or vomiting. Pain under control. awaiting SNF placement. Medications: Reviewed: Yes Vitals/I&O/Wt Last Vital Signs Temp 98.2 F 01/04/21 19:26 Pulse 67 01/04/21 19:26 Resp 16 01/04/21 19:55 BP 131/79 01/04/21 19:26 Pulse Ox 94 01/04/21 19:26 01/04/21 01/04/21 01/04/21 06:59 14:59 22:59 Intake Total 350 / 350 360 / 710 Output Total 100 / 400 675 / 675 Balance -100 / 1790 350 / 350 -315 / 35 Physical Exam Narrative: EXAM NARRATIVE: General : alert HEENT : grossly unremarkable CVS ; NSR Chest : Non-labored respiration Abd; Soft, nt Ext no edema Urinary Catheter Management^: Anderson: Cath Placed During This Visit: yes, but has since been removed by the nurse Reason for Continuing Indwelling Catheter: Required Immobilization for Trauma or Surgery or Anesthesia Urinary Catheter Date of Insertion: 01/02/21 Urinary Catheter Time of Insertion: 18:25 Date Urinary Catheter Removed: 01/02/21 Time Urinary Catheter Discontinued: 18:10 Data : 01/03/21 05:00 01/03/21 05:00 A&P Assessment and plan (1) Fracture of distal end of femur: Status: Acute Qualifiers: Encounter type: initial encounter Fracture morphology: unspecified fracture morphology Fracture type: closed Laterality: left Qualified Code(s): S72.402A - Unspecified fracture of lower end of left femur, initial encounter for closed fracture (2) Diastolic CHF: Status: Acute (3) Presence of IVC filter: Status: Acute (4) Left-sided weakness: Status: Acute (5) Dyslipidemia: Status: Acute (6) CVA (cerebral vascular accident): Status: Acute (7) Chronic kidney disease, stage II (mild): Status: Acute (8) Chronic anticoagulation: Status: Acute (9) Elevated liver enzymes: Status: Acute (10) UTI (urinary tract infection): Status: Acute (11) Hypoxia: Status: Acute Left distal femoral fracture -Post op management per ortho -Dr. Degroot on consult, plans for surgery this afternoon -Pain control on morphine -DVT prophylaxis INR 1.35, Coumadin restarted. IVC filter in place, check INR in am -Pharmacy to dose coumadin - dose increased to 10mg -Protonix GI prophylaxis -Full code Anemia, hemoglobin 9.0, likely secondary to femoral fracture, Coumadin, hematoma of left knee, status post 2 units PRBC, 2 units on hold, monitor hemoglobin, her hemodynamics, repeat CBC in am UTI, currently on Rocephin, urine cultures gram-negative rods CKD stage II Hx of DVT/PE on Coumadin -Resumed - pharmacy to dose. -KUB shows IVC filter in place Hypertension Dyslipidemia Hx of CVA with residual left sided weakness DVT ppx Awaiting placement to [facility] Medical Necessity Statement*: require further hospitalization for management of postoperative care in addition to placement arrangement. Time Spent in Patient Care: Greater than 35 minutes (>than 50% of time spent in counselling and/or direct pt care on unit) . Coding Level of Care Code Acute Pipeline Dispatch Operator for Martín Curiel Diagnoses Fracture of distal end of femur S72.402A Encounter type: initial encounter Fracture morphology: unspecified fracture morphology Fracture type: closed Laterality: left Diastolic CHF I50.30 Presence of IVC filter Z95.828 Left-sided weakness R53.1 Dyslipidemia E78.5 CVA (cerebral vascular accident) I63.9 Chronic kidney disease, stage II (mild) N18.2 Chronic anticoagulation Z79.01 Elevated liver enzymes R74.8 UTI (urinary tract infection) N39.0 Hypoxia R09.02
[2021-01-04] MEDS: atorvastatin 40 mg Tablet PO (21:21)
[2021-01-04] MEDS: acetaminophen 500 mg Tablet 1000 MG PO (21:22)
[2021-01-05] VITALS (16 sets, daily range): BP systolic 115–153; BP diastolic 60–85; PULSE 61–81; RESP 16–20; TEMP 36.6–37.1; O2SAT 92–98
[2021-01-05] MEDS: oxyCODONE 5 mg IR Tab/Cap PO ×2 (03:18→15:46)
[2021-01-05 03:35] LABS: Basophils # 0.1 10^3/uL (0.0-0.1); Basophils % 0.6 %; Eosinophils # 0.9 10^3/uL (0.0-0.8); Eosinophils % 7.3 %; Hematocrit 21.8 % (37.0-47.0); Hemoglobin 6.8 g/dL (11.5-15.3); Lymphocytes # 2.6 10^3/uL (0.8-4.8); Lymphocytes % 21.7 %; Mean Corpuscular HGB Conc 31.2 g/dL (30.0-36.0); Mean Corpuscular Hemoglobin 29.1 pg (28.0-34.0); Mean Corpuscular Volume 93.2 fL (81-99); Mean Platelet Volume 10.5 fL (7.4-10.4); Monocytes # 1.5 10^3/uL (0.2-0.9); Monocytes % 12.2 %; Neutrophils # 6.92 10^3/uL (1.8-7.7); Neutrophils % 57.1 %; Nucleated Red Blood Cells % 0.2 %; Platelet Count 246 10^3/cmm (130-400); Red Blood Count 2.34 10^6/uL (4.1-5.3); Red Cell Distribution Width 17.1 % (12.1-15.1); White Blood Count 12.1 10^3/uL (4.0-10.0)
[2021-01-05 03:50] LABS: Alanine Aminotransferase 29 U/L (0-33); Albumin Level 2.6 g/dL (3.5-5.2); Alkaline Phosphatase 17 IU/L (35-105); Anion Gap 10.6 (5-19); Aspartate Amino Transferase 26 U/L (0-32); Blood Urea Nitrogen 19 mg/dL (8-23); Calcium 7.6 mg/dL (8.5-10.5); Carbon Dioxide 32 mmol/L (22-29); Chloride 99 mmol/L (98-107); Glomerular Filtration Rate 82.7 mL/min (90-130); Glucose 101 mg/dL (65-115); Osmolality Calculated 288 mOsm/kg (285-295); Potassium 3.6 mmol/L (3.5-5.1); Sodium 138 mmol/L (136-145); Total Bilirubin 1.1 mg/dL (0.15-1.2); Total Protein 5.6 g/dL (6.6-8.7)
[2021-01-05 03:54] LABS: INR 1.25 (0.8-1.2)
[2021-01-05] MEDS: acetaminophen 500 mg Tablet 1000 MG PO ×3 (05:15→21:37)
--- NOTE | 2021-01-05 06:14 | PC.NURSE ---
SHIFT SUMMARY Rested well. Received po OXYIR for pain X2. Left leg remains quite larger than the right one. Dressing/Immobilizer in place to left knee. Hmg 6.8 this am and result was called to Order for pt to receive one unit of PRBC's. Had to be redrawn for Type & Screen due to being out of date so waiting for blood to get ready. Placed new IV in right forearm for blood administration. IV present was only 22 gauge
[2021-01-05] MEDS: cefTRIAXone 1,000 MG in sodium chloride 0.9% (plus) 50 ML 100 MG IV (09:18)
[2021-01-05] MEDS: pantoprazole DR 40 mg Tablet PO (09:19)
[2021-01-05] MEDS: metoprolol tartrate 25 mg Tablet 12.5 MG PO ×2 (09:19→17:13)
[2021-01-05] MEDS: ferrous sulfate EC 325 mg Tablet PO (09:19)
[2021-01-05] MEDS: CELEcoxib 200 mg Capsule PO ×2 (09:19→17:13)
[2021-01-05] MEDS: citalopram 20 mg Tablet PO (09:20)
--- NOTE | 2021-01-05 10:35 | PC.CHAP ---
Pastoral Care Encounter/Spiritual Assessment Type of Contact [] Declined automation design engineer visit [] Patient/Family/Request visit [] Outpatient visit [] Follow-up visit [] Physician referral [] Code/Alert [x] Routine visit [] Staff referral [] Actively dying [] Patient sleeping [] Family support [] [] Out of room [] Palliative care [] [x] Receiving care in room [] Pre-surgical visit [] Trauma [] Long length of stay [] ICU visit [] Other: Relational/Emotional Strength [x] Patient feels connected with others/family/visitors/staff [] Distress [] Loneliness/isolation [] Abandonment Spirituality of Patient [x] Person of Vera [] Attends Denominational of their Vera [x] Believes in Prayer [] Reads Bible or Jehovah'S Witness materials [] There are Spiritual issues to be addressed Churn Drill Operator Interventions [x] Prayer [x] Active listening [x] Non-anxious presence [x] Spiritual/emotional support [] Crisis/trauma care [x] Spiritual counseling [] Bereavement support [] Provided bereavement packet [] Provided Bible/devotional materials [] Provided toy/stuffed animal, coloring book to patient or family member [] Provided Communion [] Anointing/[place] [] Salvation [x] Completed spiritual assessment [] Other: Impact on Illness or Injury [] Angry [x] Fearful [] Anxious [] Often cries [] Exhaustion [x] Unable to work [] Unable to attend congregational [] Unable to walk/stand [] Unable to read [] Unable to drive [] Unable to eat/drink [] Unable to sleep [] Unable to be with family [] Patient intubated [] Other: Summary unable to communicat has negative feelings about her health will dustin to go into rehab before she can go home Time spent with patient 10 mins
[2021-01-05] MEDS: sodium chloride 0.9% (100 ml) 100 ML (10:43)
--- NOTE | 2021-01-05 15:42 | P.PN_ITS ---
Subjective Subjective: Interval history: No new clinical events overnight. no fever or chills, no nausea or vomiting. Pain under control. awaiting SNF placement. The patient appears comfortable. She remains in agreement with transfer to fpc. Medications: Reviewed: Yes Vitals/I&O/Wt Last Vital Signs Temp 98.2 F 01/05/21 15:09 Pulse 68 01/05/21 15:09 Resp 18 01/05/21 15:09 BP 127/74 01/05/21 15:09 Pulse Ox 94 01/05/21 15:09 01/05/21 01/05/21 01/05/21 06:59 14:59 22:59 Intake Total 150 / 860 870 / 870 Output Total 500 / 1175 Balance -350 / -315 870 / 870 Physical Exam Const: COMMON NORMALS: no acute distress and alert EXAM LIMITATIONS: other limitations (Severe lymphedema) GENERAL APPEARANCE: cooperative, comfortable and Edematous NUTRITIONAL APPEARANCE: obese ORIENTATION/CONSCIOUSNESS: Yes awake and Yes oriented to person HENMT: COMMON NORMALS: normocephalic and atraumatic HEAD & SCALP: normocephalic and atraumatic Eye: GENERAL EYE: appearance normal, both eyes and all related structures Chest: COMMONS NORMALS: normal inspection of the chest Resp: COMMON NORMALS: normal respiratory effort EFFORT & INSPECTION: Yes able to speak in complete sentences and Yes symmetric chest movement Extremity: NARRATIVE EXTREMITY EXAM: Patient has significant deformity in both upper extremities. She has contractures of the fingers in the left hand. There are areas of skin breakdown here as well. Patient has gross lymphedema in both her upper and lower extremities. RIGHT LOWER EXTREMITY: Yes upper leg (Dressing is removed down to the Silverlon. Swelling is decreased) Right upper leg: Yes inspection (Ecchymosis as anticipated.), Yes palpation (Minimal tenderness.) and Yes neurovascular exam (Intact for normal patient status distal to the fracture) Neuro: SENSORIUM/ORIENTATION: Yes alert and Yes oriented to person Psych: COMMON NORMALS: mental status grossly normal APPEARANCE: Yes grossly normal ATTITUDE: Yes calm and Yes engaged ATTENTION/CONCENTRATION: Yes attention grossly intact Skin: COMMON NORMALS: no rashes or lesions noted GENERAL SKIN EXAM: no rashes or lesions noted Urinary Catheter Management^: Anderson: Cath Placed During This Visit: yes, but has since been removed by the nurse Reason for Continuing Indwelling Catheter: Perioperative Use in Selected Surgeries Urinary Catheter Date of Insertion: 01/02/21 Urinary Catheter Time of Insertion: 18:25 Date Urinary Catheter Removed: 01/02/21 Time Urinary Catheter Discontinued: 18:10 Data : 01/05/21 02:30 01/05/21 02:30 A&P Assessment and plan (1) Supracondylar fracture of left femur: This 70-year-old who lives at home with her fell directly onto her left knee. Currently, the patient presents with a supracondylar femur fracture. Unfortunately, this is complicated by the fact that she has severe lymphedema. She has residual weakness on her left side with contractures of her hands and a previous history of DVT with placement of an IVC filter. She presents on Coumadin as well. Patient underwent surgical repair of her fracture. She has done well postoperatively. She is working with physical therapy. The patient and her agree that she would not be able to be managed in a touchdown weightbearing situation at home. She will require fpc at the time of discharge, and both she and her have agreed to this. She required transfusion today for H&H of 6.8/21.8. This postoperative anemia is not unanticipated given the extent of the patient's fracture and her lymphedema. At the time of discharge, she will need to follow-up with me in approximately 2 weeks after discharge. [place] may be removed at 2-1/2 weeks postoperatively. Status: Acute Qualifiers: Encounter type: initial encounter Fracture type: closed Qualified Code(s): S72.452A - Displaced supracondylar fracture without intracondylar extension of lower end of left femur, initial encounter for closed fracture (2) Left-sided weakness: Status: Acute (3) Adult BMI 40.0-44.9 kg/sq m: Status: Acute Attestations Medical Necessity Statement*: Ongoing medical management following significant orthopedic surgery. Coding Level of Care Code Acute Station Cleaning Porter for [facility] Fwd Exam Comprehensive Diagnoses Supracondylar fracture of left femur S72.452A Encounter type: initial encounter Fracture type: closed Left-sided weakness R53.1 Adult BMI 40.0-44.9 kg/sq m Z68.41
--- NOTE | 2021-01-05 16:10 | PC.SOCIAL ---
IMM Update pg2 of IMM updated w/ patient and copy provided.
--- NOTE | 2021-01-05 16:48 | PM.PN ---
Subjective Subjective: Interval history: Overnight patientWas noted to have a hemoglobin decreased to 6.8. Likely postop. Transfusion of 1 unit of PRBC was initiated. Medications: Reviewed: Yes Vitals/I&O/Wt Last Vital Signs Temp 98.2 F 01/05/21 15:09 Pulse 68 01/05/21 15:09 Resp 17 01/05/21 15:46 BP 127/74 01/05/21 15:09 Pulse Ox 94 01/05/21 15:09 01/05/21 01/05/21 01/05/21 06:59 14:59 22:59 Intake Total 150 / 860 870 / 870 Output Total 500 / 1175 Balance -350 / -315 870 / 870 Physical Exam Narrative: EXAM NARRATIVE: General : alert HEENT : grossly unremarkable CVS ; NSR Chest : Non-labored respiration Abd; Soft, nt Ext no edema Urinary Catheter Management^: Anderson: Cath Placed During This Visit: yes, but has since been removed by the nurse Reason for Continuing Indwelling Catheter: Perioperative Use in Selected Surgeries Urinary Catheter Date of Insertion: 01/02/21 Urinary Catheter Time of Insertion: 18:25 Date Urinary Catheter Removed: 01/02/21 Time Urinary Catheter Discontinued: 18:10 Data : 01/05/21 02:30 01/05/21 02:30 A&P Assessment and plan (1) Fracture of distal end of femur: Status: Acute Qualifiers: Encounter type: initial encounter Fracture morphology: unspecified fracture morphology Fracture type: closed Laterality: left Qualified Code(s): S72.402A - Unspecified fracture of lower end of left femur, initial encounter for closed fracture (2) Diastolic CHF: Status: Acute (3) Presence of IVC filter: Status: Acute (4) Left-sided weakness: Status: Acute (5) Dyslipidemia: Status: Acute (6) CVA (cerebral vascular accident): Status: Acute (7) Chronic kidney disease, stage II (mild): Status: Acute (8) Chronic anticoagulation: Status: Acute (9) Elevated liver enzymes: Status: Acute (10) UTI (urinary tract infection): Status: Acute (11) Hypoxia: Status: Acute (12) Acute blood loss as cause of postoperative anemia: Status: Acute Left distal femoral fracture -Post op management per ortho -Dr. Degroot on consult. -Pain control on morphine -DVT ppx - Holding coumadin -Protonix GI prophylaxis -Full code Acute blood-loss consult postoperative anemia Hemoglobin 6.8 Transfusion 1 unit PRBCs Repeat H&H in a.m. Hold Coumadin UTI, currently on Rocephin, urine cultures gram-negative rods Follow up on final organsim CKD stage II Stable Hx of DVT/PE on Coumadin -Resumed - pharmacy to dose. -KUB shows IVC filter in place Hypertension Dyslipidemia Hx of CVA with residual left sided weakness DVT ppx [place] [facility] [place] Necessity Statement*: Continue hospitalization for management ofPostop anemia and placement arrangement. Time Spent in Patient Care: Greater than 35 minutes (>than 50% of time spent in counselling and/or direct pt care on unit). Coding Level of Care Code Acute Chief Librarian Work With Blind for Martín Curiel Diagnoses Fracture of distal end of femur S72.402A Encounter type: initial encounter Fracture morphology: unspecified fracture morphology Fracture type: closed Laterality: left Diastolic CHF I50.30 Presence of IVC filter Z95.828 Left-sided weakness R53.1 Dyslipidemia E78.5 CVA (cerebral vascular accident) I63.9 Chronic kidney disease, stage II (mild) N18.2 Chronic anticoagulation Z79.01 Elevated liver enzymes R74.8 UTI (urinary tract infection) N39.0 Hypoxia R09.02 Acute blood loss as cause of postoperative anemia D62
[2021-01-05] MEDS: atorvastatin 40 mg Tablet PO (21:37)
[2021-01-06] VITALS (10 sets, daily range): BP systolic 135–252; BP diastolic 81–109; PULSE 59–89; RESP 16–20; TEMP 36.3–36.9; O2SAT 92–95
[2021-01-06] MEDS: acetaminophen 500 mg Tablet 1000 MG PO ×3 (05:25→20:33)
[2021-01-06] MEDS: oxyCODONE 5 mg IR Tab/Cap PO ×4 (05:28→20:33)
[2021-01-06 05:33] LABS: Basophils # 0.1 10^3/uL (0.0-0.1); Basophils % 0.6 %; Eosinophils # 0.8 10^3/uL (0.0-0.8); Eosinophils % 7.3 %; Hematocrit 24.7 % (37.0-47.0); Hemoglobin 7.7 g/dL (11.5-15.3); Lymphocytes # 1.9 10^3/uL (0.8-4.8); Lymphocytes % 17.3 %; Mean Corpuscular HGB Conc 31.2 g/dL (30.0-36.0); Mean Corpuscular Hemoglobin 28.6 pg (28.0-34.0); Mean Corpuscular Volume 91.8 fL (81-99); Mean Platelet Volume 10.3 fL (7.4-10.4); Monocytes # 1.1 10^3/uL (0.2-0.9); Monocytes % 10.2 %; Neutrophils # 6.92 10^3/uL (1.8-7.7); Neutrophils % 62.2 %; Nucleated Red Blood Cells # 0.1 /100WBC; Nucleated Red Blood Cells % 0.5 %; Platelet Count 286 10^3/cmm (130-400); Red Blood Count 2.69 10^6/uL (4.1-5.3); White Blood Count 11.1 10^3/uL (4.0-10.0)
[2021-01-06 06:00] LABS: INR 1.28 (0.8-1.2)
[2021-01-06 06:03] LABS: Alanine Aminotransferase 24 U/L (0-33); Albumin Level 2.6 g/dL (3.5-5.2); Alkaline Phosphatase 18 IU/L (35-105); Anion Gap 12.6 (5-19); Aspartate Amino Transferase 22 U/L (0-32); Blood Urea Nitrogen 19 mg/dL (8-23); C Reactive Protein 74.2 mg/L (0.0-4.9); Calcium 7.4 mg/dL (8.5-10.5); Carbon Dioxide 31 mmol/L (22-29); Chloride 98 mmol/L (98-107); Globulin 2.8 g/dL (1.3-4.6); Glomerular Filtration Rate 54.8 mL/min (90-130); Glucose 103 mg/dL (65-115); Magnesium 1.8 mg/dL (1.7-2.3); Osmolality Calculated 289 mOsm/kg (285-295); Potassium 3.6 mmol/L (3.5-5.1); Sodium 138 mmol/L (136-145); Total Bilirubin 1.2 mg/dL (0.15-1.2); Total Protein 5.4 g/dL (6.6-8.7)
[2021-01-06 06:10] LABS: Procalcitonin 0.13 ng/mL (0-0.5)
[2021-01-06] MEDS: cefTRIAXone 1,000 MG in sodium chloride 0.9% (plus) 50 ML 100 MG IV (09:13)
[2021-01-06] MEDS: pantoprazole DR 40 mg Tablet PO (09:14)
[2021-01-06] MEDS: citalopram 20 mg Tablet PO (09:14)
[2021-01-06] MEDS: metoprolol tartrate 25 mg Tablet 12.5 MG PO ×2 (09:14→17:58)
[2021-01-06] MEDS: CELEcoxib 200 mg Capsule PO ×2 (09:14→17:58)
[2021-01-06] MEDS: ferrous sulfate EC 325 mg Tablet PO (09:14)
--- NOTE | 2021-01-06 11:23 | P.PN_ITS ---
Subjective Subjective: Interval history: Found to have ankle fracture Medications: Reviewed: Yes Vitals/I&O/Wt Last Vital Signs Temp 97.3 F L 01/06/21 20:00 Pulse 59 L 01/06/21 20:00 Resp 18 01/06/21 20:33 BP 252/109 01/06/21 22:48 Pulse Ox 94 01/06/21 20:33 01/06/21 01/06/21 01/07/21 14:59 22:59 06:59 Intake Total 170 / 170 460 / 630 Output Total 250 / 250 Balance 170 / 170 210 / 380 Physical Exam Narrative: EXAM NARRATIVE: General : alert HEENT : grossly unremarkable CVS ; NSR Chest : Non-labored respiration Abd; Soft, nt Ext no edema Urinary Catheter Management^: Anderson: Cath Placed During This Visit: yes, but has since been removed by the nurse Reason for Continuing Indwelling Catheter: Acute Urinary Retention or Obstruction Urinary Catheter Date of Insertion: 01/02/21 Urinary Catheter Time of Insertion: 18:25 Date Urinary Catheter Removed: 01/02/21 Time Urinary Catheter Discontinued: 18:10 Data : 01/06/21 04:45 01/06/21 04:45 A&P Assessment and plan (1) Fracture of distal end of femur: Status: Acute Qualifiers: Encounter type: initial encounter Fracture morphology: unspecified fracture morphology Fracture type: closed Laterality: left Qualified Code(s): S72.402A - Unspecified fracture of lower end of left femur, initial encounter for closed fracture (2) Diastolic CHF: Status: Acute (3) Presence of IVC filter: Status: Acute (4) Left-sided weakness: Status: Acute (5) Dyslipidemia: Status: Acute (6) CVA (cerebral vascular accident): Status: Acute (7) Chronic kidney disease, stage II (mild): Status: Acute (8) Chronic anticoagulation: Status: Acute (9) Elevated liver enzymes: Status: Acute (10) UTI (urinary tract infection): Status: Acute (11) Hypoxia: Status: Acute (12) Acute blood loss as cause of postoperative anemia: Status: Acute Left distal femoral fracture -Post op management per ortho Pura Degroot on consult. -Pain control on morphine -DVT ppx - wll resume coumadin -Protonix GI prophylaxis -Full code Acute blood-loss consult postoperative anemia Hemoglobin 6.8 - 7.7 Transfusion 1 unit PRBCs Hold Coumadin until am UTI, currently on Rocephin, urine cultures gram-negative rods Follow up on final organism CKD stage II Stable Hx of DVT/PE on Coumadin -Resumed - pharmacy to dose. -KUB shows IVC filter in place Hypertension Dyslipidemia Hx of CVA with residual left sided weakness DVT ppx Awaiting placement to [facility] [place] Medical Necessity Statement*: Will require further hospiazation for managment of anemia, post op, ankle fracture Time Spent in Patient Care: Greater than 35 minutes (>than 50% of time spent in counselling and/or direct pt care on unit) . Coding Level of Care Code Acute Retail Greeting Card Merchandiser for [facility] Fwd Diagnoses Fracture of distal end of femur S72.402A Encounter type: initial encounter Fracture morphology: unspecified fracture morphology Fracture type: closed Laterality: left Diastolic CHF I50.30 Presence of IVC filter Z95.828 Left-sided weakness R53.1 Dyslipidemia E78.5 CVA (cerebral vascular accident) I63.9 Chronic kidney disease, stage II (mild) N18.2 Chronic anticoagulation Z79.01 Elevated liver enzymes R74.8 UTI (urinary tract infection) N39.0 Hypoxia R09.02 Acute blood loss as cause of postoperative anemia D62
--- NOTE | 2021-01-06 13:31 | XR_ITS ---
WS: [id number] Left ankle, 3 views, 01/06/2021 Clinical Data: Ecchymosis left ankle after fall Comparison: None. Findings: There is a fracture of the distal left fibula. There may be a fracture of the inferior tip of the med ial malleolus. There is soft tissue swelling throughout the leg. There are phleboliths noted in the s ubcutaneous tissue. There are braces noted ending in the midportion of the left leg. XR/XR ankle LT min 3V* [id number] Impression: 1. Oblique fracture distal left fibula. 2. Possible fracture of inferior aspect of medial malleolus. 3. Soft tissue swelling of the distal left leg.
--- NOTE | 2021-01-06 13:34 | PM.PN ---
Subjective Subjective: Interval history: The patient is seen in her room with her . Reportedly, she has been accepted to [facility]. Both of them are comfortable with this. She is complaining of some ankle pain. The ankle is ecchymotic. We will check an x-ray. Medications: Reviewed: Yes Vitals/I&O/Wt Last Vital Signs Temp 98.4 F 01/06/21 12:00 Pulse 75 01/06/21 12:00 Resp 18 01/06/21 12:00 BP 140/92 01/06/21 12:00 Pulse Ox 95 01/06/21 12:00 01/05/21 01/06/21 01/06/21 22:59 06:59 14:59 Intake Total 170 / 170 Output Total 350 / 350 325 / 675 Balance -350 / 520 -325 / 195 170 / 170 Physical Exam Const: COMMON NORMALS: no acute distress and alert EXAM LIMITATIONS: other limitations (Severe lymphedema) GENERAL APPEARANCE: cooperative, comfortable and Edematous NUTRITIONAL APPEARANCE: obese ORIENTATION/CONSCIOUSNESS: Yes awake and Yes oriented to person HENMT: COMMON NORMALS: normocephalic and atraumatic HEAD & SCALP: normocephalic and atraumatic Eye: GENERAL EYE: appearance normal, both eyes and all related structures Chest: COMMONS NORMALS: normal inspection of the chest Resp: COMMON NORMALS: normal respiratory effort EFFORT & INSPECTION: Yes able to speak in complete sentences and Yes symmetric chest movement Extremity: NARRATIVE EXTREMITY EXAM: Patient has significant deformity in both upper extremities. She has contractures of the fingers in the left hand. There are areas of skin breakdown here as well. Patient has gross lymphedema in both her upper and lower extremities. LEFT LOWER EXTREMITY: Yes upper leg (Wound is benign with no drainage.) Left upper leg: Yes inspection (Swelling is decreased.), Yes palpation (Nontender.) and Yes neurovascular exam (Normal for patient distally.) and Yes ankle joint (Ecchymotic with swelling and diffuse tenderness) Neuro: SENSORIUM/ORIENTATION: Yes alert and Yes oriented to person Psych: COMMON NORMALS: mental status grossly normal APPEARANCE: Yes grossly normal ATTITUDE: Yes calm and Yes engaged ATTENTION/CONCENTRATION: Yes attention grossly intact Skin: COMMON NORMALS: no rashes or lesions noted GENERAL SKIN EXAM: no rashes or lesions noted Urinary Catheter Management^: Anderson: Cath Placed During This Visit: yes, but has since been removed by the nurse Reason for Continuing Indwelling Catheter: Required Immobilization for Trauma or Surgery or Anesthesia Urinary Catheter Date of Insertion: 01/02/21 Urinary Catheter Time of Insertion: 18:25 Date Urinary Catheter Removed: 01/02/21 Time Urinary Catheter Discontinued: 18:10 Data : 01/06/21 04:45 01/06/21 04:45 A&P Assessment and plan (1) Supracondylar fracture of left femur: This 70-year-old who lives at home with her fell directly onto her left knee. Currently, the patient presents with a supracondylar femur fracture. Unfortunately, this is complicated by the fact that she has severe lymphedema. She has residual weakness on her left side with contractures of her hands and a previous history of DVT with placement of an IVC filter. She presents on Coumadin as well. Patient underwent surgical repair of her fracture. She has done well postoperatively. She is working with physical therapy. The patient and her agree that she would not be able to be managed in a touchdown weightbearing situation at home. She will require residential at the time of discharge, and both she and her have agreed to this. She reportedly has been accepted to [facility], however, insurance authorization is still pending. Patient received 1 unit of packed red blood cells yesterday. Her H&H is 7.7/24.7. She is asymptomatic. At the time of discharge, she will need to follow-up with me in approximately 2 weeks after discharge. [place] may be removed at 2-1/2 weeks postoperatively. She is to remain touchdown weightbearing. She is to use the knee immobilizer at all times. The wound is to remain covered for 1 week with the Silverlon dressing, it may then be changed. Status: Acute Qualifiers: Encounter type: initial encounter Fracture type: closed Qualified Code(s): S72.452A - Displaced supracondylar fracture without intracondylar extension of lower end of left femur, initial encounter for closed fracture (2) Left-sided weakness: Status: Acute (3) Adult BMI 40.0-44.9 kg/sq m: Status: Acute Attestations Medical Necessity Statement*: Patient requires ongoing hospitalization for medical management following supracondylar femur fracture. Coding Level of Care Code Acute Manufacturing Quality Manager for [facility] Fwd Diagnoses Supracondylar fracture of left femur S72.452A Encounter type: initial encounter Fracture type: closed Left-sided weakness R53.1 Adult BMI 40.0-44.9 kg/sq m Z68.41
--- NOTE | 2021-01-06 16:34 | PM.MISC ---
Miscellaneous Note Purpose of Documentation: Initiation of treatment for left lateral malleolar fracture Note: Today at the time of my visit postoperatively, the patient complained of left ankle pain. She had increasing ecchymosis. She was tender over the lateral aspect of the ankle. I ordered x-rays. These were personally reviewed by me and interpreted. The patient had a lateral malleolar fracture above the level of the plafond. Treatment was initiated in the form of a cam walker. This was discussed with physical therapy we will fit her with a cam walker. She will continue to be nonweightbearing for her supracondylar femur fracture as well as this lateral malleolar fracture.
[2021-01-06] MEDS: atorvastatin 40 mg Tablet PO (20:33)
[2021-01-07] VITALS (10 sets, daily range): BP systolic 90–191; BP diastolic 54–84; PULSE 60–81; RESP 14–19; TEMP 36.3–36.9; O2SAT 92–95
[2021-01-07] MEDS: oxyCODONE 5 mg IR Tab/Cap PO ×2 (04:02→20:49)
[2021-01-07] MEDS: acetaminophen 500 mg Tablet 1000 MG PO ×3 (05:37→20:49)
--- NOTE | 2021-01-07 08:19 | PC.SOCIAL ---
IM follow provided to and he verbalized understanding.
[2021-01-07] MEDS: pantoprazole DR 40 mg Tablet PO (09:29)
[2021-01-07] MEDS: citalopram 20 mg Tablet PO (09:29)
[2021-01-07] MEDS: ferrous sulfate EC 325 mg Tablet PO (09:30)
[2021-01-07] MEDS: metoprolol tartrate 25 mg Tablet 12.5 MG PO ×2 (09:30→17:46)
[2021-01-07] MEDS: CELEcoxib 200 mg Capsule PO ×2 (09:30→17:46)
[2021-01-07] MEDS: cefTRIAXone 1,000 MG in sodium chloride 0.9% (plus) 50 ML 100 MG IV (09:30)
--- NOTE | 2021-01-07 10:02 | XRR_ITS ---
PROCEDURE INFORMATION: Exam: XR Chest Exam date and time: 01/07/2021 10:02 AM Age: 70 years old Clinical indication: Dyspnea; Additional info: Pneumonia TECHNIQUE: Imaging protocol: XR of the chest. Views: 1 view. COMPARISON: CR (CHEST, ) 12/30/2020 8:20 PM FINDINGS: Lungs: There is mild fibrosis in the left lung. Otherwise the lungs are clear. Pleural spaces: Unremarkable. No pleural effusion. No pneumothorax. Heart/Mediastinum: Unremarkable. No cardiomegaly. Bones/joints: Unremarkable. XR/XR chest 1V 10207 IMPRESSION: No significant abnormality.
--- NOTE | 2021-01-07 12:59 | P.PN_ITS ---
Subjective Subjective: Interval history: Patient was working well with physical therapy Medications: Reviewed: Yes Vitals/I&O/Wt Last Vital Signs Temp 98.1 F 01/07/21 12:00 Pulse 65 01/07/21 12:00 Resp 16 01/07/21 12:00 BP 139/74 01/07/21 12:00 Pulse Ox 93 01/07/21 12:00 01/06/21 01/07/21 01/07/21 22:59 06:59 14:59 Intake Total 460 / 630 170 / 170 Output Total 250 / 250 500 / 750 Balance 210 / 380 -500 / -120 170 / 170 Physical Exam Narrative: EXAM NARRATIVE: General : alert HEENT : grossly unremarkable CVS ; NSR Chest : Non-labored respiration Abd; Soft, nt Ext no edema Urinary Catheter Management^: Anderson: Cath Placed During This Visit: yes, but has since been removed by the nurse Reason for Continuing Indwelling Catheter: Acute Urinary Retention or Obstruction Urinary Catheter Date of Insertion: 01/02/21 Urinary Catheter Time of Insertion: 18:25 Date Urinary Catheter Removed: 01/02/21 Time Urinary Catheter Discontinued: 18:10 Data : 01/06/21 04:45 01/06/21 04:45 A&P Assessment and plan (1) Fracture of lateral malleolus of left fibula: Status: Acute (2) Fracture of distal end of femur: Status: Acute Qualifiers: Encounter type: initial encounter Fracture morphology: unspecified fracture morphology Fracture type: closed Laterality: left Qualified Code(s): S72.402A - Unspecified fracture of lower end of left femur, initial encounter for closed fracture (3) Diastolic CHF: Status: Acute (4) Presence of IVC filter: Status: Acute (5) Left-sided weakness: Status: Acute (6) Dyslipidemia: Status: Acute (7) CVA (cerebral vascular accident): Status: Acute (8) Chronic kidney disease, stage II (mild): Status: Acute (9) Chronic anticoagulation: Status: Acute (10) Elevated liver enzymes: Status: Acute (11) UTI (urinary tract infection): Status: Acute (12) Hypoxia: Status: Acute (13) Acute blood loss as cause of postoperative anemia: Status: Acute Left distal femoral fracture -Post op management per ortho -Dr. Degroot on consult. -Pain control on morphine -DVT ppx - wll resume coumadin -Protonix GI prophylaxis -Full code Left lateral malleolar fracture - Noted on xray - Ortho on consult - Cam - PT consult Acute blood-loss consult postoperative anemia - Hemoglobin 6.8 - 7.7 - repeat h/h now - Transfusion 1 unit PRBCs - Hold Coumadin for now - If hb stable- will resume couamdin w/o bridge - High risk for VTE - d/w ortho Ecoli UTI -Sensitive for Rocephin -7 days of abx today CKD stage II - Stable Cr 1.0 Hx of DVT/PE on Coumadin -Management noted above. -KUB shows IVC filter in place Hypertension - Metoprolol 12.5 mg PO BID Dyslipidemia - Lipitor 40 mg PO qhs Hx of CVA with residual left sided weakness - Fall precautions - PT on board. DVT ppx - As noted above. Awaiting placement to [facility] on Saturday Attestations 2 Medical Necessity Statement*: Hospitalization for management of postop anemia Time Spent in Patient Care: Greater than 35 minutes (>than 50% of time spent in counselling and/or direct pt care on unit) . Coding Level of Care Code Acute Electrical Power Station Technician for [facility] Fwd Diagnoses Fracture of lateral malleolus of left fibula S82.62XA Fracture of distal end of femur S72.402A Encounter type: initial encounter Fracture morphology: unspecified fracture morphology Fracture type: closed Laterality: left Diastolic CHF I50.30 Presence of IVC filter Z95.828 Left-sided weakness R53.1 Dyslipidemia E78.5 CVA (cerebral vascular accident) I63.9 Chronic kidney disease, stage II (mild) N18.2 Chronic anticoagulation Z79.01 Elevated liver enzymes R74.8 UTI (urinary tract infection) N39.0 Hypoxia R09.02 Acute blood loss as cause of postoperative anemia D62
[2021-01-07 16:46] LABS: Hematocrit 26.4 % (37.0-47.0); Hemoglobin 8.4 g/dL (11.5-15.3)
[2021-01-07] MEDS: atorvastatin 40 mg Tablet PO (20:48)
[2021-01-07 21:18] LABS: Quest SARS-CoV-2 RNA NOT DETECTED (NOT DETECTED)
[2021-01-08] VITALS (9 sets, daily range): BP systolic 106–170; BP diastolic 60–90; PULSE 55–83; RESP 14–18; TEMP 36.2–37.1; O2SAT 90–100
[2021-01-08] MEDS: acetaminophen 500 mg Tablet 1000 MG PO ×3 (04:52→21:27)
[2021-01-08] MEDS: oxyCODONE 5 mg IR Tab/Cap PO ×3 (04:54→23:45)
[2021-01-08 06:26] LABS: Basophils # 0.1 10^3/uL (0.0-0.1); Basophils % 0.8 %; Eosinophils # 0.8 10^3/uL (0.0-0.8); Eosinophils % 7.1 %; Hematocrit 24.5 % (37.0-47.0); Hemoglobin 7.5 g/dL (11.5-15.3); Lymphocytes # 1.9 10^3/uL (0.8-4.8); Lymphocytes % 17.5 %; Mean Corpuscular HGB Conc 30.6 g/dL (30.0-36.0); Mean Corpuscular Hemoglobin 28.7 pg (28.0-34.0); Mean Corpuscular Volume 93.9 fl (81-99); Mean Platelet Volume 9.4 fL (7.4-10.4); Monocytes # 1.2 10^3/uL (0.2-0.9); Monocytes % 11.1 %; Neutrophils # 6.46 10^3/uL (1.8-7.7); Neutrophils % 60.2 %; Nucleated Red Blood Cells % 0.2 %; Platelet Count 407 10^3/cmm (130-400); Red Blood Count 2.61 10^6/uL (4.1-5.3); Red Cell Distribution Width 17.5 % (12.1-15.1); White Blood Count 10.7 10^3/uL (4.0-10.0)
[2021-01-08 06:34] LABS: INR 1.37 (0.8-1.2)
[2021-01-08 07:00] LABS: Alanine Aminotransferase 20 U/L (0-33); Albumin Level 2.4 g/dL (3.5-5.2); Alkaline Phosphatase 18 IU/L (35-105); Aspartate Amino Transferase 24 U/L (0-32); Blood Urea Nitrogen 18 mg/dL (8-23); Calcium 7.8 mg/dL (8.5-10.5); Carbon Dioxide 31 mmol/L (22-29); Chloride 103 mmol/L (98-107); Globulin 3.4 g/dL (1.3-4.6); Glomerular Filtration Rate 70.9 mL/min (90-130); Glucose 108 mg/dL (65-115); Osmolality Calculated 292 mOsm/kg (285-295); Sodium 140 mmol/L (136-145); Total Bilirubin 0.9 mg/dL (0.15-1.2); Total Protein 5.8 g/dL (6.6-8.7)
[2021-01-08] MEDS: cefTRIAXone 1,000 MG in sodium chloride 0.9% (plus) 50 ML 100 MG IV (09:59)
[2021-01-08] MEDS: pantoprazole DR 40 mg Tablet PO (09:59)
[2021-01-08] MEDS: citalopram 20 mg Tablet PO (09:59)
[2021-01-08] MEDS: CELEcoxib 200 mg Capsule PO ×2 (09:59→17:59)
[2021-01-08] MEDS: ferrous sulfate EC 325 mg Tablet PO (09:59)
[2021-01-08] MEDS: metoprolol tartrate 25 mg Tablet 12.5 MG PO ×2 (09:59→17:59)
--- NOTE | 2021-01-08 18:51 | PM.PN ---
Subjective Subjective: Interval history: Patient was veryTearful at the time of my evaluation. Wanted to be discharged. Medications: Reviewed: Yes Vitals/I&O/Wt Last Vital Signs Temp 97.8 F 01/08/21 16:00 Pulse 65 01/08/21 16:00 Resp 16 01/08/21 16:00 BP 106/60 01/08/21 16:00 Pulse Ox 93 01/08/21 16:00 01/08/21 01/08/21 01/08/21 06:59 14:59 22:59 Intake Total 290 / 290 480 / 770 Output Total 150 / 500 Balance -150 / 30 290 / 290 480 / 770 Physical Exam Narrative: EXAM NARRATIVE: General : alert HEENT : grossly unremarkable CVS ; NSR Chest : Non-labored respiration Abd; Soft, nt Ext no edema Urinary Catheter Management^: Anderson: Cath Placed During This Visit: yes, but has since been removed by the nurse Reason for Continuing Indwelling Catheter: Acute Urinary Retention or Obstruction Urinary Catheter Date of Insertion: 01/02/21 Urinary Catheter Time of Insertion: 18:25 Date Urinary Catheter Removed: 01/02/21 Time Urinary Catheter Discontinued: 18:10 Data : 01/08/21 05:53 01/08/21 05:53 A&P Assessment and plan (1) Fracture of lateral malleolus of left fibula: Status: Acute (2) Fracture of distal end of femur: Status: Acute Qualifiers: Encounter type: initial encounter Fracture morphology: unspecified fracture morphology Fracture type: closed Laterality: left Qualified Code(s): S72.402A - Unspecified fracture of lower end of left femur, initial encounter for closed fracture (3) Diastolic CHF: Status: Acute (4) Presence of IVC filter: Status: Acute (5) Left-sided weakness: Status: Acute (6) Dyslipidemia: Status: Acute (7) CVA (cerebral vascular accident): Status: Acute (8) Chronic kidney disease, stage II (mild): Status: Acute (9) Chronic anticoagulation: Status: Acute (10) Elevated liver enzymes: Status: Acute (11) UTI (urinary tract infection): Status: Acute (12) Hypoxia: Status: Acute (13) Acute blood loss as cause of postoperative anemia: Status: Acute Left distal femoral fracture -Post op management per ortho -Dr. Degroot on consult. -Pain control on morphine -DVT ppx - wll resume coumadin -Protonix GI prophylaxis -Full code Left lateral malleolar fracture - Noted on xray - Ortho on consult - Cam - PT consult Acute blood-loss consult postoperative anemia - Hemoglobin 6.8 - 7.7 - repeat h/h now - Transfusion 1 unit PRBCs - Hold Coumadin for now - If hb stable- will resume couamdin w/o bridge - High risk for VTE - d/w ortho Ecoli UTI -Sensitive for Rocephin -7 days of abx today CKD stage II - Stable Cr 1.0 Hx of DVT/PE on Coumadin -Management noted above. -KUB shows IVC filter in place Hypertension - Metoprolol 12.5 mg PO BID Dyslipidemia - Lipitor 40 mg PO qhs Hx of CVA with residual left sided weakness - Fall precautions - PT on board. DVT ppx - As noted above. Anticipate likely discharge to senior care facility in a.m. Attestations Medical Necessity Statement*: require further hospitalization for management of postop anemia. And placement arrangement. Coding Level of Care Code Acute [facility] Fwd Diagnoses Fracture of lateral malleolus of left fibula S82.62XA Fracture of distal end of femur S72.402A Encounter type: initial encounter Fracture morphology: unspecified fracture morphology Fracture type: closed Laterality: left Diastolic CHF I50.30 Presence of IVC filter Z95.828 Left-sided weakness R53.1 Dyslipidemia E78.5 CVA (cerebral vascular accident) I63.9 Chronic kidney disease, stage II (mild) N18.2 Chronic anticoagulation Z79.01 Elevated liver enzymes R74.8 UTI (urinary tract infection) N39.0 Hypoxia R09.02 Acute blood loss as cause of postoperative anemia D62
[2021-01-08] MEDS: atorvastatin 40 mg Tablet PO (21:27)
[2021-01-09] VITALS (9 sets, daily range): BP systolic 150–194; BP diastolic 64–117; PULSE 59–82; RESP 12–20; TEMP 36.7–37.2; O2SAT 90–100
[2021-01-09 02:25] LABS: Basophils # 0.1 10^3/uL (0.0-0.1); Basophils % 0.7 %; Eosinophils # 0.8 10^3/uL (0.0-0.8); Eosinophils % 6.2 %; Hematocrit 25.9 % (37.0-47.0); Lymphocytes # 2.1 10^3/uL (0.8-4.8); Lymphocytes % 15.5 %; Mean Corpuscular HGB Conc 30.9 g/dL (30.0-36.0); Mean Corpuscular Hemoglobin 29.1 pg (28.0-34.0); Mean Corpuscular Volume 94.2 fl (81-99); Monocytes # 1.4 10^3/uL (0.2-0.9); Monocytes % 10.5 %; Neutrophils # 8.46 10^3/uL (1.8-7.7); Neutrophils % 63.8 %; Nucleated Red Blood Cells # 0.1 /100WBC; Nucleated Red Blood Cells % 0.4 %; Platelet Count 445 10^3/cmm (130-400); Red Blood Count 2.75 10^6/uL (4.1-5.3); Red Cell Distribution Width 17.6 % (12.1-15.1); White Blood Count 13.3 10^3/uL (4.0-10.0)
[2021-01-09 02:36] LABS: INR 1.34 (0.8-1.2)
[2021-01-09 03:12] LABS: Alanine Aminotransferase 21 U/L (0-33); Albumin Level 2.6 g/dL (3.5-5.2); Alkaline Phosphatase 20 IU/L (35-105); Anion Gap 12.1 (5-19); Aspartate Amino Transferase 27 U/L (0-32); Blood Urea Nitrogen 19 mg/dL (8-23); Calcium 8.3 mg/dL (8.5-10.5); Carbon Dioxide 30 mmol/L (22-29); Chloride 104 mmol/L (98-107); Globulin 3.5 g/dL (1.3-4.6); Glomerular Filtration Rate 70.9 mL/min (90-130); Glucose 119 mg/dL (65-115); Osmolality Calculated 297 mOsm/kg (285-295); Potassium 4.1 mmol/L (3.5-5.1); Sodium 142 mmol/L (136-145); Total Bilirubin 0.8 mg/dL (0.15-1.2); Total Protein 6.1 g/dL (6.6-8.7)
[2021-01-09 03:22] LABS: Slide Review Slide Review Perform
[2021-01-09] MEDS: acetaminophen 500 mg Tablet 1000 MG PO ×3 (05:48→20:47)
[2021-01-09] MEDS: oxyCODONE 5 mg IR Tab/Cap PO ×2 (08:09→19:35)
[2021-01-09] MEDS: cefTRIAXone 1,000 MG in sodium chloride 0.9% (plus) 50 ML 100 MG IV (08:10)
[2021-01-09] MEDS: ferrous sulfate EC 325 mg Tablet PO (08:11)
[2021-01-09] MEDS: pantoprazole DR 40 mg Tablet PO (08:11)
[2021-01-09] MEDS: CELEcoxib 200 mg Capsule PO ×2 (08:11→17:28)
[2021-01-09] MEDS: metoprolol tartrate 25 mg Tablet 12.5 MG PO ×2 (08:11→17:27)
[2021-01-09] MEDS: citalopram 20 mg Tablet PO (08:11)
--- NOTE | 2021-01-09 09:25 | PC.SOCIAL ---
Imm Update pg 2 of IMM updated w/ patient/Spouse and copy provided.
--- NOTE | 2021-01-09 09:54 | PC.CHAP ---
Pastoral Care Encounter/Spiritual Assessment Type of Contact [] Declined assistant speech language pathologist visit [] Patient/Family/Request visit [] Outpatient visit [] Follow-up visit [] Physician referral [] Code/Alert [x] Routine visit [] Staff referral [] Actively dying [] Patient sleeping [] Family support [] [] Out of room [] Palliative care [] [] Receiving care in room [] Pre-surgical visit [] Trauma [] Long length of stay [] ICU visit [] Other: Relational/Emotional Strength [x] Patient feels connected with others/family/visitors/staff [] Distress [] Loneliness/isolation [] Abandonment Spirituality of Patient [x] Person of Vera [] Attends Christian of their Vera [x] Believes in Prayer [] Reads Bible or Baptism materials [] There are Spiritual issues to be addressed Consulting Manager Interventions [x] Prayer [x] Active listening [] Non-anxious presence [] Spiritual/emotional support [] Crisis/trauma care [] Spiritual counseling [] Bereavement support [] Provided bereavement packet [] Provided Bible/devotional materials [] Provided toy/stuffed animal, coloring book to patient or family member [] Provided Communion [] Anointing/[place] [] Salvation [x] Completed spiritual assessment [] Other: Impact on Illness or Injury [] Angry [] Fearful [] Anxious [] Often cries [] Exhaustion [] Unable to work [] Unable to attend religious [] Unable to walk/stand [] Unable to read [] Unable to drive [] Unable to eat/drink [] Unable to sleep [] Unable to be with family [] Patient intubated [] Other: Summary Time spent with patient 10m min
--- NOTE | 2021-01-09 14:53 | PM.DCS ---
Discharge Providers Date of Admission: 12/31/20 05:40 Date of Discharge: January 09, 2021 Attending Provider at Admission: Yane Arceo Attending Provider at Discharge: Yane Arceo Primary Care Provider: Efren Romano MD Diagnoses at Discharge Discharge Diagnosis (1) Fracture of lateral malleolus of left fibula: Status: Acute (2) Fracture of distal end of femur: Status: Acute Qualifiers: Encounter type: initial encounter Fracture morphology: unspecified fracture morphology Fracture type: closed Laterality: left Qualified Code(s): S72.402A - Unspecified fracture of lower end of left femur, initial encounter for closed fracture (3) Diastolic CHF: Status: Acute (4) Presence of IVC filter: Status: Acute (5) Left-sided weakness: Status: Acute (6) Dyslipidemia: Status: Acute (7) CVA (cerebral vascular accident): Status: Acute (8) Chronic kidney disease, stage II (mild): Status: Acute (9) Chronic anticoagulation: Status: Acute Permanent problem details: Coumadin 2 and 3mg daily depending on INR (10) Elevated liver enzymes: Status: Acute (11) UTI (urinary tract infection): Status: Acute (12) Hypoxia: Status: Acute (13) Acute blood loss as cause of postoperative anemia: Status: Acute Reason for Visit Reason for Visit: FALL/ L KNEE PAIN Hospital Course Hospital Course 69-year-old with a past medical history significant for CVA with residual left-sided weakness, hypertension, dyslipidemia, DVT/PE with prior noted IVC filter also however on Coumadin, who presented to the hospital after she sustained a fall. Upon arrival to ER patients initial laboratory work up showed WBC of 14.3, hemoglobin of 11.9, hematocrit of 38.0 and a platelet count of 205.INR was 2.22. Sodium 141, potassium 3.9, chloride 104, bicarb 29, BUN 19 and creatinine of 0.7. Urinalysis showed positive nitrites, 0 to 4 WBCs and negative leukocyte esterase. CT of lower extremity showed acute displaced comminuted displaced supracondylar femur fracture with bone loss anteriorly at the level of the knee and severe lymphedema with morbid obesity and with severe degenerative osteoarthritis of the left knee and bone loss lateral tibial plateau. Orthopedic surgery was consulted and patient was taken for open reduction internal fixation left comminuted distal supracondylar spiral femur fracture Implants: The Csaa 8 hole left lateral femoral plate with multiple locking screws and Vitoss 10 cc bone graft. Post operative course was complicated with acute blood loss anemia. Patient required one unit of PRBC. Subsequent hemoglobin remained stable. Patient was resumed on Coumadin as per ortho recommendation. Patient was also found to have left lateral malleolar fracture. Additionally noted to have E-coli UTI which was treated with IV rocephin. Patient was stable and cleared for discharge. Prolonged hospitalization due to placement arrangement. On 01/09 patient [place] [facility] [place] Exam Narrative: EXAM NARRATIVE: General : alert HEENT : grossly unremarkable CVS ; NSR Chest : Non-labored respiration Abd; Soft, nt Ext: Left lower extremity post op, stable incision Urinary Catheter Management^: Anderson: Cath Placed During This Visit: yes, but has since been removed by the nurse Reason for Continuing Indwelling Catheter: Accurate Measurement of Urinary Output in Critically Ill Patients Urinary Catheter Date of Insertion: 01/02/21 Urinary Catheter Time of Insertion: 18:25 Date Urinary Catheter Removed: 01/02/21 Time Urinary Catheter Discontinued: 18:10 Discharge Data Data Completed and Pending: Completed Studies During Hospitalization Category Date Time Status CT cervical spin wo con* 97416 Urge nt Cat Scan 12/30/20 18:[address] head wo con* 7 0450 Urgent Cat Scan 12/30/20 18:[address] knee LT wo con * 57381 Urgent Cat Scan 12/30/20 23:48 Completed XR KUB portable 7 4018 Routine Exams 12/31/20 11:05 Completed XR ankle LT min 3 V* [id number] Urgent Exams 01/06/21 13:31 Completed XR chest 1V 82079 Urgent Exams 01/07/21 10:02 Completed XR chest 1V ольга ble [id number] Stat Exams 12/30/20 20:20 Completed XR knee LT 1-2V 7 3560 Routine Exams 01/02/21 Completed XR knee LT 1-2V 7 3560 Stat Exams 01/03/21 09:27 Completed XR knee LT 3V* 73 562 Stat Exams 12/30/20 18:22 Completed Labs from last 24 hours 01/09/21 01/09/21 01/09/21 02:08 02:08 02:08 WBC 13.3 H RBC 2.75 L Hgb 8.0 L Hct 25.9 L MCV 94.2 MCH 29.1 MCHC 30.9 RDW 17.6 H Plt Count 445 H MPV 10.0 Neut % (Auto) 63.8 Lymph % (Auto) 15.5 [place] % (Auto) 10.5 Eos % (Auto) 6.2 Baso % (Auto) 0.7 Neut # (Auto) 8.46 H Lymph # (Auto) 2.1 [place] # (Auto) 1.4 H Eos # (Auto) 0.8 Baso # (Auto) 0.1 Nucleated RBC % (a uto) 0.4 Nucleated RBCs # 0.1 PT 17.00 H INR 1.34 H Sodium 142 Potassium 4.1 Chloride 104 Carbon Dioxide 30 H Anion Gap 12.1 BUN 19 Creatinine 0.8 GFR Calculation 70.9 L Glucose 119 H Calculated Osmolal ity 297 H Calcium 8.3 L Total Bilirubin 0.8 AST 27 ALT 21 Alkaline Phosphata se 20 L Total Protein 6.1 L Albumin 2.6 L Globulin 3.5 Vitals: Last Vital Signs Temp 98.6 F 01/09/21 12:00 Pulse 82 01/09/21 12:00 Resp 14 01/09/21 12:00 BP 164/90 01/09/21 12:00 Pulse Ox 92 01/09/21 12:00 Discharge Plan Discharge Patient Disposition: Xfer SNF Condition: Stable Prescriptions: New celecoxib 200 mg Capsule 200 mg PO DAILY Qty: 30 RF: 0 acetaminophen 500 mg Tablet 1,000 mg PO Q8H Qty: 0 RF: 0 oxycodone 5 mg Tablet 5 mg PO Q4H PRN (Reason: Moderate To Severe Pain) 7 Days Qty: 30 RF: 0 Continued atorvastatin 40 mg tablet 40 mg PO BEDTIME RF: 0 ropinirole 1 mg tablet See Rx Instructions .ROUTE .COMPLEX RF: 0 tizanidine 4 mg tablet 4 mg PO TID PRN (Reason: Muscle Spasm) RF: 0 citalopram 20 mg tablet 20 mg PO DAILY RF: 0 trazodone 100 mg tablet 100 mg PO BEDTIME RF: 0 ferrous sulfate [Iron (ferrous sulfate)] 325 mg (65 mg iron) Tablet 325 mg PO DAILY RF: 0 omeprazole 20 mg capsule,delayed release(DR/EC) 20 mg PO DAILY RF: 0 oxybutynin chloride 5 mg tablet 5 mg PO BID RF: 0 metoprolol tartrate 25 mg tablet 12.5 mg PO BID RF: 0 furosemide 40 mg Tablet 60 mg PO DAILY@0800 Qty: 45 RF: 0 Jantoven 3 mg tablet See Rx Instructions .ROUTE .COMPLEX RF: 0 warfarin 2 mg tablet See Rx Instructions .ROUTE .COMPLEX RF: 0 amitriptyline 25 mg tablet 25 mg PO BEDTIME RF: 0 diazepam 5 mg tablet 5 mg PO BID RF: 0 Discontinued nitrofurantoin macrocrystal 50 mg capsule 50 mg PO DAILY RF: 0 tramadol 50 mg tablet 50 - 100 mg PO QID PRN (Reason: Pain) RF: 0 Discharge Orders: Discharge Order (Routine); Ordered 01/09/21 Ordered By: Yane Arceo Referrals: Kathy Degroot MD [Physician] - 2 weeks Efren Romano MD [Primary Care Provider] - Discharge Diet: Usual diet Discharge Activity: Use walker/crutches as instructed, Wheelchair as instructed and As per PT/OT instructions Activity Restrictions/Additional Instructions: Maintain Silverlon dressing for 1 week following discharge. You may remove it if there is leakage, but otherwise leave it in place. Please change the dressing at 1 week. Touchdown weightbearing left lower extremity. Use knee immobilizer when ambulating for comfort. Discharge Attestations Time Spent in Discharge Care*: greater than 30 min Status at Discharge: Cognitive status at discharge: mildly impaired cognition, Behavioral status at discharge: cooperative, Functional status at discharge: other assisted ambulation Overall status at discharge: patient is progressing back to baseline Quality Metrics Clinical Quality Measures During this hospital stay, did patient experience: None Coding Level of Care Code Acute [facility] [place] note Diagnoses Fracture of lateral malleolus of left fibula S82.62XA Fracture of distal end of femur S72.402A Encounter type: initial encounter Fracture morphology: unspecified fracture morphology Fracture type: closed Laterality: left Diastolic CHF I50.30 Presence of IVC filter Z95.828 Left-sided weakness R53.1 Dyslipidemia E78.5 CVA (cerebral vascular accident) I63.9 Chronic kidney disease, stage II (mild) N18.2 Chronic anticoagulation Z79.01 Elevated liver enzymes R74.8 UTI (urinary tract infection) N39.0 Hypoxia R09.02 Acute blood loss as cause of postoperative anemia D62
[2021-01-09] MEDS: docusate sodium 100 mg Capsule PO (17:27)
--- NOTE | 2021-01-09 17:31 | PC.NURSE ---
notified Dr Arceo that patient had 125ml urine output today
[2021-01-09] MEDS: atorvastatin 40 mg Tablet PO (20:03)
[2021-01-10 03:43] VITALS: PULSE 84; RESP 18; TEMP 36.8; O2SAT 91
[2021-01-10] MEDS: acetaminophen 500 mg Tablet 1000 MG PO (04:50)
[2021-01-10 07:43] VITALS: BP 151/84; PULSE 88; RESP 22; TEMP 36.8; O2SAT 92
[2021-01-10] MEDS: citalopram 20 mg Tablet PO (08:45)
[2021-01-10] MEDS: docusate sodium 100 mg Capsule PO (08:45)
[2021-01-10] MEDS: polyethylene glycol 3350 Pkt 17 gm PO (08:45)
[2021-01-10] MEDS: cefTRIAXone 1,000 MG in sodium chloride 0.9% (plus) 50 ML 100 MG IV (08:45)
[2021-01-10] MEDS: ferrous sulfate EC 325 mg Tablet PO (08:45)
[2021-01-10] MEDS: CELEcoxib 200 mg Capsule PO (08:45)
[2021-01-10] MEDS: metoprolol tartrate 25 mg Tablet 12.5 MG PO (08:45)
[2021-01-10] MEDS: pantoprazole DR 40 mg Tablet PO (08:46)
[2021-01-10 11:29] VITALS: BP 142/80; PULSE 63; RESP 16; TEMP 36.9; O2SAT 94
[2021-01-10 13:16] VITALS: RESP 16
[2021-01-10] MEDS: oxyCODONE 5 mg IR Tab/Cap PO (13:16)
[2021-01-10 13:41] VITALS: RESP 16
== END 2021-01-10 13:42 | disposition skilled nursing facility (03) | DRG 480 ==
LOC: ER 22:49 → ER IP 12-31 08:26 → MEDSURG 12-31 15:21
PROVIDERS: Family Medicine; Nurse Practitioner Family; Specialist; Admitting Provider Hospitalist; Emergency Provider Emergency Medicine; PCP Family Medicine; Visit Provider Hospitalist
PROC: 0QSC04Z Reposition Left Lower Femur with Internal Fixation Device, Open Approach (ICD-10-PCS; principal; 2021-01-02 16:00)
DX: M80.052A Age-related osteoporosis with current pathological fracture, left femur, initial encounter for fracture (principal); I50.31 Acute diastolic (congestive) heart failure; I69.954 Hemiplegia and hemiparesis following unspecified cerebrovascular disease affecting left non-dominant side; I13.0 Hypertensive heart and chronic kidney disease with heart failure and stage 1 through stage 4 chronic kidney disease, or unspecified chronic kidney disease; N39.0 Urinary tract infection, site not specified; Z68.41 Body mass index [BMI] 40.0-44.9, adult; D62 Acute posthemorrhagic anemia; M80.072A Age-related osteoporosis with current pathological fracture, left ankle and foot, initial encounter for fracture; M24.542 Contracture, left hand; M24.541 Contracture, right hand; D63.1 Anemia in chronic kidney disease; N18.2 Chronic kidney disease, stage 2 (mild); E78.5 Hyperlipidemia, unspecified; Z95.828 Presence of other vascular implants and grafts; Z87.891 Personal history of nicotine dependence; I27.20 Pulmonary hypertension, unspecified; I87.2 Venous insufficiency (chronic) (peripheral); Z86.718 Personal history of other venous thrombosis and embolism; M17.12 Unilateral primary osteoarthritis, left knee; E66.01 Morbid (severe) obesity due to excess calories
CPT/HCPCS: 36415; 36430; 51702; 70450; 71045; 72125; 73560; 73562; 73610; 73700; 74018; 76000; 80053; 81001; 83735; 83880; 84100; 84145; 85014; 85018; 85025; 85610; 86140; 86850; 86900; 86920; 86927; 87077; 87086; 87186; 87426; 87635; 93005; 96365; 96372; 96375; 96376; 97110; 97161; 97165; 97530; 97760; 99285; C1713; J0360; J0690; J0696; J1940; J2270; J2405; J2704; J3010; J3370; J3430; J3480; J3490; J7030; J7050; L4361; P9016; P9017; P9040; P9041

== ENCOUNTER 2021-02-23 09:39 | Outpatient (CLI) | payer MEDICARE, MEDICAID, SELFPAY ==
[2021-02-23 10:16] LABS: Basophils # 0.1 10^3/uL (0.0-0.1); Basophils % 0.7 %; Eosinophils # 0.6 10^3/uL (0.0-0.8); Eosinophils % 5.3 %; Hemoglobin 11.5 g/dL (11.5-15.3); Lymphocytes # 3.3 10^3/uL (0.8-4.8); Lymphocytes % 29.1 %; Mean Corpuscular HGB Conc 31.1 g/dL (30.0-36.0); Mean Corpuscular Volume 93.2 fl (81-99); Mean Platelet Volume 9.9 fL (7.4-10.4); Monocytes % 8.4 %; Neutrophils # 6.33 10^3/uL (1.8-7.7); Neutrophils % 55.8 %; Nucleated Red Blood Cells % 0 %; Platelet Count 307 10^3/cmm (130-400); Red Blood Count 3.97 10^6/uL (4.1-5.3); Red Cell Distribution Width 15.8 % (12.1-15.1); White Blood Count 11.3 10^3/uL (4.0-10.0)
[2021-02-23 10:36] LABS: Bilirubin Urine Neg (Negative); Blood Urine Neg (Negative); Glucose Urine UA Norm (Normal); Ketones Urine Negative (Negative); Leukocyte Esterase Urine Negative (Negative); Nitrate Urine Negative (Negative); Protein Urine Neg (Negative); Specific Gravity, Urine 1.015 (1.005-1.030); Squamous Epithelial Cell Urine RARE /hpf (0-5); Urine Appearance Clear (CLEAR); Urine Color Yellow (Yellow); Urobilinogen Urine Norm (Negative); pH Urine 5 (5-7)
[2021-02-23 10:50] LABS: Alanine Aminotransferase 7 U/L (0-33); Albumin Level 3.1 g/dL (3.5-5.2); Alkaline Phosphatase 21 IU/L (35-105); Anion Gap 13.5 (5-19); Aspartate Amino Transferase 16 U/L (0-32); Blood Urea Nitrogen 17 mg/dL (8-23); C Reactive Protein 7.6 mg/L (0.0-4.9); Calcium 9.5 mg/dL (8.5-10.5); Carbon Dioxide 32 mmol/L (22-29); Chloride 94 mmol/L (98-107); Globulin 4.7 g/dL (1.3-4.6); Glucose 108 mg/dL (65-115); Osmolality Calculated 284 mOsm/kg (285-295); Potassium 3.5 mmol/L (3.5-5.1); Sodium 136 mmol/L (136-145); Total Bilirubin 0.3 mg/dL (0.15-1.2); Total Protein 7.8 g/dL (6.6-8.7)
== END 2021-02-23 09:40 | disposition home or self-care (01) ==
LOC: LAB 09:44
PROVIDERS: PCP Family Medicine; Visit Provider Physician Assistant
DX: R50.9 Fever, unspecified (principal)
CPT/HCPCS: 80053; 81001; 85025; 86140; 87040

== ENCOUNTER → 2021-04-05 11:20 | Outpatient (BNVA) | payer MEDICARE, MEDICAID, SELFPAY | PROVIDERS: PCP Family Medicine; Visit Provider Specialist | DX: T81.31XD Disruption of external operation (surgical) wound, not elsewhere classified, subsequent encounter (principal); Z20.822 Contact with and (suspected) exposure to COVID-19 | CPT/HCPCS: 87635 ==

== ENCOUNTER 2021-04-07 09:08 | Day surgery (SDC) | payer MEDICARE, MEDICAID, SELFPAY ==
[2021-04-06 17:09] VITALS: BMI 31.8
[2021-04-07] VITALS (10 sets, daily range): BP systolic 131–167; BP diastolic 69–105; PULSE 67–85; RESP 16–23; TEMP 36.1–36.9; O2SAT 92–98
--- NOTE | 2021-04-07 09:59 | ANES.PREANE2 ---
Pre-Anesthetic Assessment Pre-Anesthetic Assessment: Height/Weight: Height 1.57 m Weight 78.925 kg Temp Pulse Resp BP Pulse Ox 98.4 F 67 18 147/83 94 04/07/21 09:40 04/07/21 09:40 04/07/21 09:40 04/07/21 09:40 04/07/21 09:40 Preop Diagnosis: Left knee wound dehiscence with drainage Proposed Procedure: Operation Date: 04/07/21 10:50 Proposed Procedures p Debridement left Thigh and Knee Irrigation and debridement 56166 46441 T81.31XD(Left) - Kathy Degroot MD s Wound Vac Placement(Left) - Kathy Degroot MD Familial anesthetic complications: none Last intake: > 8 hrs Social: Social History: No alcohol and No tobacco Comment: former smoker Exam: Pre-Anes Outpt Exam: alert, oriented x 3, clear to auscultation bilaterally and regular rate & rhythm Airway: Cervical ROM: WNL MP: 3 Dentition: Other (no teeth) CV/HEM: CV/HEM: DVT and HTN Comments: ECHO 2020 CONCLUSIONS 1. Normal left ventricular size, systolic function and wall thickness, with no regional wall motion abnormalities. Left ventricular ejection fraction is estimated at 70 %. Normal diastolic function. 2. Normal right ventricular size and systolic function, RVSP 39 mmHg. 3. Mild aortic valve regurgitation. 4. When compared to previous echocardiogram dated 06/06/2013, tricuspid valve regurgitation seems to have decreased. : : Chronic renal Insufficiency (stage II) GI: GI: GERD Metabolic: Metabolic: Morbid obesity Neuropsych: Neuropsych: CVA Anesthetic Plan: ASA status: 4 Anesthesia: General Risk of > 500 ml blood loss (7ml/kg in children): No PFSH Anesthesia PFSH: Medical History Anemia Chronic anemia Chronic antibiotic suppression Has been taking nitrofurantoin for last 6 months as per the Chronic anticoagulation Coumadin 2 and 3mg daily depending on INR Chronic kidney disease, stage II (mild) CVA (cerebral vascular accident) Dyslipidemia Elevated hemidiaphragm Hypertension Left-sided weakness Lymphedema Moderate pulmonary arterial systolic hypertension Presence of IVC filter Venous stasis dermatitis Surgical History H/O shoulder surgery History of hip surgery History of hysterectomy S/P cholecystectomy Family History Other CAD (coronary artery disease) Hypertension Stroke Social History Alcohol intake: never Household members: spouse Housing: House Female Reproductive History: Date of last menstrual period: 12/31/20 Data Anesthesia Cardiac Studies: No Data to Display
[2021-04-07] MEDS: acetaminophen 1,000 MG/100 ML PIGGYBACK 400 MG IV (10:02)
[2021-04-07] MEDS: sodium chloride 0.9% 1,000 ML 30 ML IV (10:03)
--- NOTE | 2021-04-07 10:17 | ECG_ITS ---
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 Measurements Intervals [place] Rate: 66 P: 62 NM: 140 QRS: 44 QRSD: 112 T: 59 QT: 429 QTc: 451 Interpretive Statements SINUS RHYTHM MODERATE INTRAVENTRICULAR CONDUCTION DELAY [110+ ms QRS DURATION] Compared to ECG 12/30/2020 21:57:58 Intraventricular conduction delay now present T-wave abnormality no longer present Possible ischemia no longer present Electronically Signed On 04-07-2021 19:50:57 TITLE PROCESSOR by Santo Armas M.D. [id number]
[2021-04-07 10:23] LABS: Basophils # 0.1 10^3/uL (0.0-0.1); Eosinophils # 0.8 10^3/uL (0.0-0.8); Eosinophils % 6.6 %; Hematocrit 36.6 % (37.0-47.0); Hemoglobin 11.2 g/dL (11.5-15.3); Lymphocytes % 25.8 %; Mean Corpuscular HGB Conc 30.6 g/dL (30.0-36.0); Mean Corpuscular Hemoglobin 27.3 pg (28.0-34.0); Mean Corpuscular Volume 89.3 fl (81-99); Mean Platelet Volume 9.8 fL (7.4-10.4); Monocytes # 0.9 10^3/uL (0.2-0.9); Monocytes % 8.1 %; Neutrophils # 6.63 10^3/uL (1.8-7.7); Nucleated Red Blood Cells % 0 %; Platelet Count 337 10^3/cmm (130-400); Red Cell Distribution Width 15.5 % (12.1-15.1); White Blood Count 11.4 10^3/uL (4.0-10.0)
[2021-04-07 10:42] LABS: Alanine Aminotransferase 6 U/L (0-33); Albumin Level 3.2 g/dL (3.5-5.2); Alkaline Phosphatase 18 IU/L (35-105); Blood Urea Nitrogen 22 mg/dL (8-23); Calcium 9.2 mg/dL (8.5-10.5); Carbon Dioxide 31 mmol/L (22-29); Chloride 94 mmol/L (98-107); Globulin 4.7 g/dL (1.3-4.6); Glomerular Filtration Rate 98.8 mL/min (90-130); Glucose 90 mg/dL (65-115); Osmolality Calculated 285 mOsm/kg (285-295); Sodium 136 mmol/L (136-145); Total Bilirubin 0.4 mg/dL (0.15-1.2); Total Protein 7.9 g/dL (6.6-8.7)
[2021-04-07 10:46] LABS: Anion Gap 15.1 (5-19); Aspartate Amino Transferase 16 U/L (0-32); Potassium 4.1 mmol/L (3.5-5.1)
--- NOTE | 2021-04-07 11:27 | P.HPUD_ITS ---
Surgery/Procedure H&P Update DATE OF PROCEDURE: April 07, 2021 DATE H&P PERFORMED: 04/05/21 H&P UPDATE INFORMATION: I have reviewed H&P completed within last 30 days, I have examined patient prior to procedure, No changes to prior documentation and H&P is in [facility] [place] E[place] on date indicated PREOP DIAGNOSIS: Left knee wound dehiscence with drainage PLANNED PROCEDURE: Operation Date: 04/07/21 10:50 Proposed Procedures p Debridement left Thigh and Knee Irrigation and debridement [id number] 60248 T81.31XD(Left) - Kathy Degroot MD s Wound Vac Placement(Left) - Kathy Degroot MD Related Problem List Diagnoses (1) Wound dehiscence, surgical: Qualifiers: Encounter type: subsequent encounter Qualified Code(s): T81.31XD - Disruption of external operation (surgical) wound, not elsewhere classified, subsequent encounter (2) Lymphedema: (3) Fracture of distal end of femur: Qualifiers: Encounter type: initial encounter Fracture morphology: unspecified fracture morphology Fracture type: closed Laterality: left Qualified Code(s): S72.402A - Unspecified fracture of lower end of left femur, initial encounter for closed fracture
[2021-04-07] MEDS: vancomycin 1,000 MG in sodium chloride 0.9% 250 ML 250 MG IV (12:45)
[2021-04-07] MEDS: fentaNYL 50 mcg/mL INJ 2mL IVP (13:29)
--- NOTE | 2021-04-07 13:41 | PM.OP ---
Operative Report Date of procedure: April 07, 2021 Pre-op Diagnosis: Left knee wound dehiscence with drainage, medial knee abscess Post-op diagnosis: same Post-op Findings: Wound dehiscence with healing of the fascia overlying the open reduction internal fixation of the femur. Medial fluctuance aspirated for purulent fluid Procedure Done: Aggressive irrigation and debridement of left lateral thigh wound dehiscence with placement of wound VAC. Aspiration of medial knee fluctuance Specimens removed/disposition: Cultures from the lateral wound dehiscence. Culture and cell count from the medial knee aspiration Surgeon: Kathy Degroot Anesthesia: General (Intubated, ASA 4) Estimated blood loss (mL): 500 IV fluids (mL): 500 Urine output (mL): 0 Urine output: No Anderson Complications: None Findings: Wound dehiscence with healing of the fascia overlying the open reduction internal fixation of the femur. Medial fluctuance aspirated for purulent fluid. Probable retained packing material. Condition: stable Disposition: PACU (Then return to same-day surgery for return to skilled facility) Brief History: This 70-year-old woman presented initially approximately 3 months ago with a very comminuted distal femur fracture which was treated with an open reduction internal fixation. She had longstanding lymphedema and was felt to be very high risk for surgery. Over the course of her healing, she did have breakdown of her wound, and this was treated by wound care at the skilled facility. She now presents for definitive treatment via a wound VAC. In the meantime, she also has a medial mass which was imaged and felt to be possibly fluid collection. She presents today for definitive treatment. Procedure: Patient was seen in the preoperative holding area, and the surgical procedure was discussed with her . Patient was brought to the operating theater and placed on the operating room table. After undergoing adequate general anesthesia intubated, ASA 4, the patient's left lower extremity was prepped and draped in usual fashion utilizing Betadine scrub. Packing was removed from the wound prior to prepping and draping. The leg was draped free. A surgical pause was performed. At the time of the surgical pause we identified the site and side of surgery as well as the patient's identity and availability of equipment. We also confirmed appropriate administration of IV antibiotics. Following the above, the patient's previous incision was evaluated. There was a small wound proximally and a much larger wound distally with a small bridge in the more distal wound. The wound was approximately 12 inches in length once we open the entire wound. I did place a suction through the more proximal opening and at that time, we extracted a piece of packing material which appeared to have been retained for longer than the most recent packing. The entire previous wound was opened. Debridement was accomplished sharply and with curettes. Cultures were obtained. We then copiously irrigated the wound. Upon evaluation, the fascia was noted to be intact. Once we had irrigated the wound and debrided it, the wound VAC was placed uneventfully. There was also a medial knee mass which has been evaluated and was felt to be fluid-filled. This was aspirated for purulent fluid. This fluid was sent for cell count and differential as well as cultures. An OpSite dressing was placed over this. I was reluctant to open this fluid collection further for concerns that this would cause the wound VAC to lose its suction and benefit. The procedure was well tolerated without complication. Patient was returned to the PACU followed by the preop holding area where she will be discharged back to the skilled facility. She is placed on Cleocin and also an infectious disease consult has been requested while the patient is at the nursing home facility. Associated Problem List Diagnoses (1) Wound dehiscence, surgical: Qualifiers: Encounter type: subsequent encounter Qualified Code(s): T81.31XD - Disruption of external operation (surgical) wound, not elsewhere classified, subsequent encounter (2) Supracondylar fracture of left femur: Qualifiers: Encounter type: initial encounter Fracture type: closed Qualified Code(s): S72.452A - Displaced supracondylar fracture without intracondylar extension of lower end of left femur, initial encounter for closed fracture (3) Lymphedema:
[2021-04-07 14:06] LABS: Body Fluid WBC 52042 /uL; Monocytes # Body Fluid 5.839
--- NOTE | 2021-04-07 14:18 | ANE.PACU2 ---
Inpatient post-anesthesia follow up: Airway intact: Yes Vital signs: Temperature 97 F Pulse Rate 71 Respiratory Rate 16 Blood Pressure 147/73 Pulse Oximetry 93 Oxygen Delivery Me thod Room Air Oxygen Flow Rate Fraction of Inspir ed Oxygen Hydration adequate: Yes Nausea and vomiting: No Pain level: 2 Mental status: Baseline
[2021-04-07 14:32] LABS: LAB Peripheral Smear Sent for Review
[2021-04-07 16:35] LABS: Apprearance, Body Fluid TURBID; Color, Body Fluid OTHER
== END 2021-04-07 15:00 | disposition skilled nursing facility (03) ==
PROVIDERS: Pathology Anatomic Pathology & Clinical Pathology; PCP Family Medicine; Visit Provider Specialist
PROC: (CPT 11042; principal; 2021-04-07 10:40)
PROC: (CPT 11042; 2021-04-07 10:40)
DX: T81.31XD Disruption of external operation (surgical) wound, not elsewhere classified, subsequent encounter (principal); S72.452A Displaced supracondylar fracture without intracondylar extension of lower end of left femur, initial encounter for closed fracture; D64.89 Other specified anemias; I13.0 Hypertensive heart and chronic kidney disease with heart failure and stage 1 through stage 4 chronic kidney disease, or unspecified chronic kidney disease; N18.2 Chronic kidney disease, stage 2 (mild); I50.30 Unspecified diastolic (congestive) heart failure; Z88.2 Allergy status to sulfonamides; Z91.040 Latex allergy status; X58.XXXA Exposure to other specified factors, initial encounter
CPT/HCPCS: 11042; 97605; 36415; 80053; 80500; 85025; 87070; 87075; 87205; 89050; 93005; 96365; J2704; J3010; J3370; J3490; J7030

== ENCOUNTER 2021-04-15 02:11 | Inpatient (IN) | payer MEDICARE, MEDICAID, SELFPAY ==
[2021-04-15] VITALS (16 sets, daily range): BP systolic 115–169; BP diastolic 48–89; PULSE 77–101; RESP 17–47; TEMP 36.6–39.1; O2SAT 90–98; BMI 35.7; BMI 35.0
--- NOTE | 2021-04-15 02:16 | XRR_ITS ---
PROCEDURE INFORMATION: Exam: XR Chest Exam date and time: 04/15/2021 2:16 AM Age: 70 years old Clinical indication: Cough and fever; Prior surgery; Surgery type: Gb; Patient HX: Cough with high grade fever TECHNIQUE: Imaging protocol: XR of the chest. Views: 1 view. COMPARISON: CR XR chest 1V [id number] 01/07/2021 10:08 AM FINDINGS: Lungs: Nonspecific prominence of the interstitial markings which may be secondary to mild edema versus atypical viral infection. Pleural spaces: Unremarkable. No pleural effusion. No pneumothorax. Heart/Mediastinum: Unremarkable. No cardiomegaly. Bones/joints: Unremarkable. XR/XR chest 1V portable [id number] IMPRESSION: Nonspecific prominence of the interstitial markings which may be secondary to mild edema versus atypical viral infection. Radiation Dose CTDIVOL = (mGy): DLP = (mGy-cm)
--- NOTE | 2021-04-15 02:22 | ED_ITS ---
HPI - Fever General: Chief Complaint: Fever Stated Complaint: fever/ sepsis Time Seen by Provider: 04/15/21 02:13 Source: patient and EMS Mode of arrival: EMS Limitations: no limitations History of Present Illness: HPI Narrative: 70-year-old female sent here from residential with high fever that had a fever of 104 there treated its now 102 patient did have a femur fracture from her fall and had surgery here has a wound VAC in place to the residential for a week. States that tonight she just had spiked high fevers been having a cough. She has had no drainage from the wound or erythema. Patient has some slight confusion she is confused at baseline she denies any pain anywhere answers most my questions appropriately. She said no vomiting or diarrhea. Associated symptoms: Reports chills; Deny abdominal pain, chest pain, diarrhea, dysuria, headache(s), nausea or vomiting Review of Systems Const: Reports: fever(s) and chills Eyes: Denies: blurry vision or eye discomfort ENMT: Denies: throat pain or dental pain Card: Denies: chest pain Resp: Denies: dyspnea GI: Denies: abdominal pain, nausea, vomiting or diarrhea : Denies: dysuria Musc: Denies: neck pain or back pain Skin/Breast: Denies: rash Neuro: Denies: headache(s) Psych: Denies: depression [place]/Lymph: Denies: easy bruising All/Imm: Denies: urticaria PFSH ED PFSH: Medical History Anemia Chronic anemia Chronic antibiotic suppression Has been taking nitrofurantoin for last 6 months as per the Chronic anticoagulation Coumadin 2 and 3mg daily depending on INR Chronic kidney disease, stage II (mild) CVA (cerebral vascular accident) Dyslipidemia Elevated hemidiaphragm Hypertension Left-sided weakness Lymphedema Moderate pulmonary arterial systolic hypertension Presence of IVC filter Venous stasis dermatitis Surgical History H/O shoulder surgery History of hip surgery History of hysterectomy S/P cholecystectomy Family History Other CAD (coronary artery disease) Hypertension Stroke Social History Alcohol intake: never Household members: spouse Housing: House Female Reproductive History: Date of last menstrual period: 12/31/20 Physical Exam Const: COMMON NORMALS: no acute distress, patient oriented x3 and healthy appearing HENMT: COMMON NORMALS: normocephalic and atraumatic HEAD & SCALP: normocephalic and atraumatic Eye: COMMON NORMALS: Equal, round and reactive pupils present and EOMs intact bilaterally PUPIL: Yes Equal, round and reactive pupils present Neck/C-Spine: COMMON NORMALS: full ROM and supple Chest: COMMONS NORMALS: normal inspection of the chest and normal palpation of entire chest wall Resp: COMMON NORMALS: normal respiratory effort, No retractions, No use of accessory muscles and clear to auscultation bilaterally AUSCULTATION: clear to auscultation bilaterally Cardio: COMMON NORMALS: regular rate, regular rhythm and No murmurs present (Cardio) RATE: regular rate RHYTHM: regular rhythm GI: COMMON NORMALS: Normal to inspection, nondistended, normoactive bowel sounds present, Soft to palpation, non-tender and no masses PALPATION: Yes Soft to palpation Extremity: COMMON NORMALS: normal to inspection and full ROM NARRATIVE EXTREMITY EXAM: Wound appears well on left lower leg wound VAC in place no signs of erythema or drainage Neuro: COMMON NORMALS: patient oriented x3, moves all extremities and no focal motor deficits Psych: COMMON NORMALS: mental status grossly normal, Normal thought process present and cooperative THOUGHT PROCESS: Normal thought process present Skin: COMMON NORMALS: no rashes or lesions noted and no wounds GENERAL SKIN EXAM: no rashes or lesions noted Course Vital Signs: Vital signs: Vital Signs Temperature 102.4 F H 04/15/21 02:12 Pulse Rate 95 04/15/21 03:52 Respiratory Rate 21 H 04/15/21 03:52 Blood Pressure 143/66 04/15/21 03:52 Pulse Oximetry 90 04/15/21 03:52 MDM - Fever MDM Narrative: Medical decision making narrative: Patient presents here with fever cough and hypoxia she is requiring increased oxygen she wears oxygen as needed residential is requiring 3 to 4 L here she does have elevated white count blood pressure and lactate here been normal patient's x-ray looks like pneumonitis will start on antibiotics she has no signs of wound infection urinalysis is normal.hospitalist will admit at this time. Lab Data: Labs: Lab Results 04/15/21 04/15/21 04/15/21 02:40 02:40 02:40 WBC 20.7 10^3/uL H 10 ^3/uL (4.0-10.0) RBC 2.89 10^6/uL L 10 ^6/uL (4.1-5.3) Hgb 7.8 g/dL L g/dL (11.5-15.3) Hct 24.8 % L % (37.0-47.0) MCV 85.8 fl fl (81-99) MCH 27.0 pg L pg (28.0-34.0) MCHC 31.5 g/dL g/dL (30.0-36.0) RDW 15.8 % H % (12.1-15.1) Plt Count 460 10^3/cmm H 10 ^3/cmm (130-400) MPV 9.3 fL fL (7.4-10.4) Neut % (Auto) 85.4 % % Lymph % (Auto) 7.8 % % [place] % (Auto) 5.4 % % Eos % (Auto) 0.2 % % Baso % (Auto) 0.4 % % Neut # (Auto) 17.65 10^3/uL H 1 0^3/uL (1.8-7.7) Lymph # (Auto) 1.6 10^3/uL 10^3/ uL (0.8-4.8) [place] # (Auto) 1.1 10^3/uL H 10^ 3/uL (0.2-0.9) Eos # (Auto) 0.0 10^3/uL 10^3/ uL (0.0-0.8) Baso # (Auto) 0.1 10^3/uL 10^3/ uL (0.0-0.1) Nucleated RBC % (a uto) 0 % % Nucleated RBCs # 0.0 /100WBC /100W BC Sodium 133 mmol/L L mmol /L (136-145) Potassium 3.8 mmol/L mmol/L (3.5-5.1) Chloride 93 mmol/L L mmol/ L (98-107) Carbon Dioxide 28 mmol/L mmol/L (22-29) Anion Gap 15.8 (5-19) BUN 22 mg/dL mg/dL (8-23) Creatinine 0.8 mg/dL mg/dL (0.5-0.9) GFR Calculation 70.9 mL/min L mL/ min (90-130) Glucose 132 mg/dL H mg/dL (65-115) Calculated Osmolal ity 281 mOsm/kg L mOs m/kg (285-295) Lactate 1.9 mmol/L mmol/L (0.5-2.2) Calcium 8.4 mg/dL L mg/dL (8.5-10.5) Total Bilirubin 0.4 mg/dL mg/dL (0.15-1.2) AST 17 U/L U/L (0-32) ALT 7 U/L U/L (0-33) Alkaline Phosphata se 21 IU/L L IU/L (35-105) Total Protein 7.6 g/dL g/dL (6.6-8.7) Albumin 2.9 g/dL L g/dL (3.5-5.2) Globulin 4.7 g/dL H g/dL (1.3-4.6) Urine Color Urine Appearance Urine pH Ur Specific Gravit y Urine Protein Urine Glucose (UA) Urine Ketones Urine Blood Urine Nitrate Urine Bilirubin Urine Urobilinogen Ur Leukocyte Kiera ase Urine RBC Urine WBC Ur Squamous Epith Cells Amorphous Sediment Urine Bacteria Coarse Granular Ca sts SARS-CoV-2 Ag (Rap id) 04/15/21 04/15/21 02:50 03:45 WBC RBC Hgb Hct MCV MCH MCHC RDW Plt Count MPV Neut % (Auto) Lymph % (Auto) [place] % (Auto) Eos % (Auto) Baso % (Auto) Neut # (Auto) Lymph # (Auto) [place] # (Auto) Eos # (Auto) Baso # (Auto) Nucleated RBC % (a uto) Nucleated RBCs # Sodium Potassium Chloride Carbon Dioxide Anion Gap BUN Creatinine GFR Calculation Glucose Calculated Osmolal ity Lactate Calcium Total Bilirubin AST ALT Alkaline Phosphata se Total Protein Albumin Globulin Urine Color Yellow (Yellow) Urine Appearance Clear (CLEAR) Urine pH 5 (5-7) Ur Specific Gravit y 1.010 (1.005-1.030) Urine Protein Neg (Negative) Urine Glucose (UA) Norm (Normal) Urine Ketones Negative (Negative) Urine Blood 2+ H (Negative) Urine Nitrate Negative (Negative) Urine Bilirubin Neg (Negative) Urine Urobilinogen Norm mg/dL mg/dL (Negative) Ur Leukocyte Kiera ase Negative (Negative) Urine RBC 0-4 /hpf H /hpf (0-2) Urine WBC 0-4 /hpf H /hpf (0-5) Ur Squamous Epith Cells 0-4 /hpf H /hpf (0-5) Amorphous Sediment 1+ /hpf /hpf Urine Bacteria Trace /hpf /hpf (NONE) Coarse Granular Ca sts 0-4 /lpf H /lpf SARS-CoV-2 Ag (Rap id) Negative (Negative) Imaging Data^: CXR: Attestation: I personally reviewed and interpreted this imaging study as follows: Radiologist's impression: [employer] [address] XRay Report Signed Patient: Doris Clarke Unit #: [id number] : 1950 Age/Sex: 70 / F ADM Date: 04/15/21 Loc: ER Room/Bed: Attending Dr: Ordering Provider/Ordering MD: Ginny Bird MD Date of Service: 04/15/21 Procedure(s): XR chest 1V portable [id number] Accession Number(s): [id number] Report Number: [id number] PROCEDURE INFORMATION: Exam: XR Chest Exam date and time: 04/15/2021 2:16 AM Age: 70 years old Clinical indication: Cough and fever; Prior surgery; Surgery type: Gb; Patient HX: Cough with high grade fever TECHNIQUE: Imaging protocol: XR of the chest. Views: 1 view. COMPARISON: CR XR chest 1V [id number] 01/07/2021 10:08 AM FINDINGS: Lungs: Nonspecific prominence of the interstitial markings which may be secondary to mild edema versus atypical viral infection. Pleural spaces: Unremarkable. No pleural effusion. No pneumothorax. Heart/Mediastinum: Unremarkable. No cardiomegaly. Bones/joints: Unremarkable. XR/XR chest 1V portable [id number] IMPRESSION: Nonspecific prominence of the interstitial markings which may be secondary to mild edema versus atypical viral infection. Radiation Dose CTDIVOL = (mGy): DLP = (mGy-cm) Dictated By: Sean Campo Signed By: Sean Campo Signed Date/Time: 04/15/21 0335 DD/ 5 Discharge Plan Discharge Patient Disposition: Admitted As Inpatient Clinical Impression: Community acquired pneumonia Sepsis Qualifiers: Sepsis type: sepsis due to unspecified organism Sepsis acute organ dysfunction status: unspecified Qualified Code(s): A41.9 - Sepsis, unspecified organism Condition: Stable Coding Level of Care Code ED Assistant Corporation Counsel for Chg Fwd Exam Comprehensive
[2021-04-15 02:55] LABS: Basophils # 0.1 10^3/uL (0.0-0.1); Basophils % 0.4 %; Eosinophils % 0.2 %; Hematocrit 24.8 % (37.0-47.0); Hemoglobin 7.8 g/dL (11.5-15.3); Lymphocytes # 1.6 10^3/uL (0.8-4.8); Lymphocytes % 7.8 %; Mean Corpuscular HGB Conc 31.5 g/dL (30.0-36.0); Mean Corpuscular Volume 85.8 fl (81-99); Mean Platelet Volume 9.3 fL (7.4-10.4); Monocytes # 1.1 10^3/uL (0.2-0.9); Monocytes % 5.4 %; Neutrophils # 17.65 10^3/uL (1.8-7.7); Neutrophils % 85.4 %; Nucleated Red Blood Cells % 0 %; Platelet Count 460 10^3/cmm (130-400); Red Blood Count 2.89 10^6/uL (4.1-5.3); Red Cell Distribution Width 15.8 % (12.1-15.1); White Blood Count 20.7 10^3/uL (4.0-10.0)
[2021-04-15 03:11] LABS: SARS Covid-2 Antigen Negative (Negative)
[2021-04-15] MEDS: acetaminophen 325 mg Tablet 650 MG PO (03:11)
[2021-04-15] MEDS: sodium chloride 0.9% 1,000 ML 999 ML IV ×2 (03:14→04:59)
[2021-04-15 03:21] LABS: Lactate (Lactic Acid level) 1.9 mmol/L (0.5-2.2)
[2021-04-15 03:22] LABS: Alanine Aminotransferase 7 U/L (0-33); Albumin Level 2.9 g/dL (3.5-5.2); Alkaline Phosphatase 21 IU/L (35-105); Anion Gap 15.8 (5-19); Aspartate Amino Transferase 17 U/L (0-32); Blood Urea Nitrogen 22 mg/dL (8-23); Calcium 8.4 mg/dL (8.5-10.5); Carbon Dioxide 28 mmol/L (22-29); Chloride 93 mmol/L (98-107); Globulin 4.7 g/dL (1.3-4.6); Glomerular Filtration Rate 70.9 mL/min (90-130); Glucose 132 mg/dL (65-115); Osmolality Calculated 281 mOsm/kg (285-295); Potassium 3.8 mmol/L (3.5-5.1); Sodium 133 mmol/L (136-145); Total Bilirubin 0.4 mg/dL (0.15-1.2); Total Protein 7.6 g/dL (6.6-8.7)
[2021-04-15 03:53] LABS: Add Urine Microscopic? YES; Bilirubin Urine Neg (Negative); Blood Urine 2+ (Negative); Glucose Urine UA Norm (Normal); Ketones Urine Negative (Negative); Leukocyte Esterase Urine Negative (Negative); Nitrate Urine Negative (Negative); Protein Urine Neg (Negative); Urine Appearance Clear (CLEAR); Urine Color Yellow (Yellow); Urobilinogen Urine Norm (Negative); pH Urine 5 (5-7)
[2021-04-15 04:01] LABS: Add Urine Culture? No; Amorphous Sediment Urine 1+ /hpf; Bacteria Urine TRACE /hpf; Coarse Granular Casts Urine 0-4 /lpf; RBC Urine 0-4 /hpf (0-2); Squamous Epithelial Cell Urine 0-4 /hpf (0-5); WBC Urine 0-4 /hpf (0-5)
[2021-04-15] MEDS: cefTRIAXone 1,000 MG in sodium chloride 0.9% (plus) 50 ML 100 MG IV (04:09)
--- NOTE | 2021-04-15 04:25 | ECG_ITS ---
[facility] Test Date: 2021-04-15 Pat Name: Doris Clarke Department: Room: 262 Gender: Female Requirements Analyst: : 1950 Requested By: Ginny Bird Order Number: [id number] Alberto MD: Zack Rose M.D. Measurements Intervals [place] Rate: 91 P: 67 CA: 133 QRS: 53 QRSD: 89 T: 70 QT: 294 QTc: 362 Interpretive Statements SINUS RHYTHM POSSIBLE LEFT ATRIAL ENLARGEMENT [-0.1mV P-WAVE IN V1/V2] NONSPECIFIC T-WAVE ABNORMALITY Compared to ECG 04/07/2021 10:19:44 T-wave abnormality now present Intraventricular conduction delay no longer present Electronically Signed On 04-15-2021 22:00:45 BATCH MIXING [employer]UCK DRIVER by Zack Rose M.D. [id number] f
[2021-04-15] MEDS: azithromycin 500 MG in sodium chloride 0.9% 250 ML 250 MG IV (04:47)
[2021-04-15 05:16] LABS: NT Pro B Type Natriuretic Pept 368 pg/mL (0-125)
--- NOTE | 2021-04-15 11:09 | P.HP_ITS ---
Providers/Chief Complaint Admitting Physician: Ramona Mckeon MD Primary Care Provider: Efren Romano MD Chief Complaint: fever/ sepsis History of Present Illness Doris Clarke is a 70 year old female with PMH as noted below brought from SNF due to fever that developed today. Recent history notable for comminuted distal femur fracture 3 months ago which was treated with an open reduction internal fixation. She had longstanding lymphedema and was felt to be very high risk for surgery. Over the course of her healing, she did have breakdown of her wound, and this was treated by wound care at the [facility] facility. More recently, she underwent definitive treatment via a wound VAC on 04/07/21. She was additionally noted to have medial mass which was imaged and felt to be possibly fluid collection. CX from this collection remained negative however cell count 52K, 88% PMNLs. She is currently on treatment with Clindamycin. notes that there have been issues with wound vac at the [place] incl battery problems, error messages on machine, etc. After lunch today patient was noted to have fever 102-104F and sent to ER for further evaluation. ROS+ for vomiting one episode last night, which thinks may be related to eating a [employer] hot dog which was not ground (patiet otherwise on pureed diet). She is noted to have a new 02 requirement today with concern for aspiration episode. Also has had multiple loose BM yesterday. She is unable to communicate regarding abdominal pain but winces on abdominal exam. Vaccinated for covid 19 with 2 dose mrna series. Review of Systems General: Reports: ROS unobtainable due to medical condition Medications/Allergies Home Medications Medication Instructions Recorded Confirmed Last Taken Type atorvastatin [Lipitor] 40 mg PO BEDTIME 03/21/20 04/16/21 04/06/21 History citalopram [Celexa] 20 mg PO DAILY 03/21/20 04/16/21 04/06/21 History ferrous sulfate [Iron (ferrous 325 mg PO DAILY 03/21/20 04/16/21 04/06/21 History sulfate)] metoprolol tartrate 12.5 mg PO BID 03/21/20 04/16/21 04/06/21 History oxybutynin chloride 5 mg PO BID 03/21/20 04/16/21 04/06/21 History ropinirole See Rx Instructions .ROUTE .COMPLEX 03/21/20 04/16/21 04/07/21 06:00 History tizanidine 4 mg PO TID PRN 03/21/20 04/16/21 04/06/21 History trazodone 100 mg PO BEDTIME 03/21/20 04/16/21 04/06/21 History amitriptyline 25 mg PO BEDTIME 12/30/20 04/16/21 04/06/21 History diazepam 5 mg PO BID 12/30/20 04/16/21 04/06/21 History acetaminophen 1,000 mg PO Q8H #0 tab 01/04/21 04/16/21 04/06/21 Rx furosemide [Lasix] 60 mg PO DAILY@0800 04/06/21 04/16/21 04/06/21 History nitrofurantoin macrocrystal 50 mg PO DAILY 04/06/21 04/16/21 04/06/21 History [Macrodantin] oxycodone 5 mg PO Q4H PRN 04/06/21 04/16/21 04/06/21 History woundvac #1 ea NS 04/06/21 04/16/21 Unknown Rx clindamycin HCl [Cleocin HCl] 300 mg PO Q6H 21 Days #84 cap 04/07/21 04/16/21 Unknown Rx alprazolam [Xanax] 0.5 mg PO DAILY PRN 04/16/21 04/16/21 Unknown History amino acids-protein hydrolys 30 ea PO TID 04/16/21 04/16/21 Unknown History [Pro-Stat 150] tramadol 50 mg PO Q8H PRN 04/16/21 04/16/21 Unknown History Allergies Allergy/AdvReac Type Severity Reaction Status Date / Time fluconazole Allergy Unknown Verified 04/06/21 14:35 latex Allergy Unknown Verified 04/06/21 14:35 Sulfa (Sulfonamide Allergy Unknown Verified 04/06/21 14:35 Antibiotics) PFSH Acute PFSH: Medical History (Updated 04/17/21 @ 07:08 by AI Sarkar) Adult BMI 40.0-44.9 kg/sq m Anemia Chronic anemia Chronic antibiotic suppression Has been taking nitrofurantoin for last 6 months as per the Chronic anticoagulation Coumadin 2 and 3mg daily depending on INR Chronic kidney disease, stage II (mild) CVA (cerebral vascular accident) Dyslipidemia Elevated hemidiaphragm Fracture of distal end of femur Fracture of lateral malleolus of left fibula Hypertension Left-sided weakness Lymphedema Moderate pulmonary arterial systolic hypertension Presence of IVC filter Supracondylar fracture of left femur UTI (urinary tract infection) Venous stasis dermatitis Surgical History H/O shoulder surgery History of hip surgery History of hysterectomy S/P cholecystectomy Family History Other CAD (coronary artery disease) Hypertension Stroke Social History Alcohol intake: never Household members: spouse Housing: House Female Reproductive History: Date of last menstrual period: 12/31/20 Vitals/I&O/Wt Last Vital Signs Temp 98.4 F 04/15/21 07:56 Pulse 77 04/15/21 07:56 Resp 18 04/15/21 07:56 BP 133/78 04/15/21 07:56 Pulse Ox 97 04/15/21 07:56 04/14/21 04/15/21 04/15/21 22:59 06:59 14:59 Intake Total 2300 / 2300 Balance 2300 / 2300 Weight last 48 hrs Weight 84.085 kg Weight 97.522 kg Physical Exam Narrative: EXAM NARRATIVE: General: No acute distress, AO x 2-3, residual contractures and weakness present from old stroke HEENT: PERRLA, pupils bilaterally equal and reactive Chest: Normal vesicular breath sounds, bilateral lower zone coarse crackles present, equal good air entry bilaterally CVS: S1-S2 regular, no murmurs, no tachycardia, no gallops, no rubs Abdomen: Soft, nontender, no organomegaly, bowel sounds present Neuro: Residual weakness present, no facial deformity, AO x3, power 5/5 in all limbs Extremities: Left lower thigh lateral wound VAC present, tenderness present, local rise of temperature present, no erythema present. Data : 04/16/21 16:30 04/16/21 04:15 Micro: Microbiology 04/15/21 03:06 Blood Culture - Preliminary Blood SPECIMEN COLLECTED 04/15/21 02:40 Blood Culture - Preliminary Blood SPECIMEN COLLECTED A&P Assessment and plan (1) Sepsis: Status: Acute Qualifiers: Sepsis acute organ dysfunction status: unspecified Sepsis type: sepsis due to unspecified organism Qualified Code(s): A41.9 - Sepsis, unspecified organism (2) Wound dehiscence, surgical: Status: Acute Qualifiers: Encounter type: subsequent encounter Qualified Code(s): T81.31XD - Disruption of external operation (surgical) wound, not elsewhere classified, subsequent encounter (3) Community acquired pneumonia: Status: Acute (4) Hypoxia: Status: Acute (5) Diastolic CHF: Status: Acute (6) Chronic kidney disease, stage II (mild): Status: Acute (7) Chronic anticoagulation: Status: Acute (8) Presence of IVC filter: Status: Acute Additional A&P Information Sepsis: Criteria met for leukocytosis, fever of more than 102 Fahrenheit on admission, tachycardia. Unknown source for now. Could be secondary to recent wound dehiscence postoperatively for which she underwent wound VAC placement on April 07 versu s possible aspiration pneumonia. Aspiration pneumonia less likely the culprit for now. Blood cultures, urinalysis, urine culture, procalcitonin, lactate. Check CT chest abdomen pelvis. CT chest with contrast to rule out PE given history of anticoagulation in the past but not currently on same. Check left lower limb CT with contrast to rule out abscess versus osteomyelitis versus septic arthritis. Will consult orthopedics for further management. For now start patient on vancomycin, cefepime. Dose renally. Will de-escalate as per culture results. Hypoxia: Could not rule out aspiration pneumonia given the history. Continue with dysphagia pur?ed diet. Antibiotics as above. Oxygen supplementation keeping saturation more than 90%. COVID-19 antigen/PCR sent out. Continue with isolation precautions. Anemia: Most likely postoperative. Hemoglobin 7.8. Baseline hemoglobin seems to be more than 11. Check iron panel. 1 unit blood transfusion. Start on oral supplementation. Protonix 40 mg twice daily. History of diastolic heart failure: Currently seems euvolemic. Last echocardiogram from 2019 shows an EF of 70%, RVSP of 39 mmHg with mild AI. CKD: Creatinine seems to be at baseline. Medical reconciliation done for nephrotoxic drugs. History of chronic anticoagulation/IVC filter placement: Anticoagulation not on MAR currently. We will confirm with long-term and family before starting anticoagulation. Continue other chronic medications including amitriptyline, Celexa, diazepam at half dose 2.5 mg twice daily, oxybutynin, Requip, tizanidine, trazodone. CODE STATUS: Full code. Dysphagia 1 pur?ed diet. SCDs for DVT prophylaxis, hold off on Lovenox given anemia. Protonix for PUD prophylaxis. Attestations Medical Necessity Statement*: Admission for more than 2 midnights for christiane gement of sepsis Time Spent in Patient Care: Greater than 35 minutes (>than 50% of time spent in counselling and/or direct pt care on unit) . Coding Level of Care Code Acute Ethanol Quality Leader for Chg Fwd Diagnoses Sepsis A41.9 Sepsis acute organ dysfunction status: unspecified Sepsis type: sepsis due to unspecified organism Wound dehiscence, surgical T81.31XD Encounter type: subsequent encounter Community acquired pneumonia J18.9 Hypoxia R09.02 Diastolic CHF I50.30 Chronic kidney disease, stage II (mild) N18.2 Chronic anticoagulation Z79.01 Presence of IVC filter Z95.828
[2021-04-15 11:43] LABS: Reticulocyte % 2.3 % (0.5-2.0)
[2021-04-15 12:03] LABS: Iron 10 ug/dL (37-145); Percent Saturation 6.2 % (20-50); Total Iron Binding Capacity 159 mcg/dl; Unsaturated Iron Binding 149 ug/dL (112-347)
[2021-04-15 12:08] LABS: Procalcitonin 0.13 ng/mL (0-0.5)
[2021-04-15 12:10] LABS: Thyroid Stimulating Hormone 0.65 uIU/mL (0.27-4.20)
[2021-04-15] MEDS: cefepime 2,000 MG in sodium chloride 0.9% (plus) 50 ML 100 MG IV ×2 (12:25→23:53)
[2021-04-15] MEDS: pantoprazole 40 mg SDV IVP ×2 (12:26→23:53)
[2021-04-15 12:34] LABS: Estmated Average Glucose 111; Hemoglobin A1C 5.5 % (4.0-6.0)
--- NOTE | 2021-04-15 13:12 | CTR_ITS ---
PROCEDURE INFORMATION: Exam: CT Left Lower Extremity With Contrast; Thigh Exam date and time: 04/15/2021 1:12 PM Age: 70 years old Clinical indication: Swelling, leg or foot; Prior surgery; Additional info: Septic arthritis and abscess TECHNIQUE: Imaging protocol: CT of the Left lower extremity with intravenous contrast was performed. Exam focused on the thigh. Radiation optimization: All CT scans at this facility use at least one of these dose optimization techniques: automated exposure control; mA and/or kV adjustment per patient size (includes targeted exams where dose is matched to clinical indication); or iterative reconstruction. Contrast material: OMNI 350; Contrast volume: 95 ml; Contrast route: INTRAVENOUS (IV); COMPARISON: DX Femur 2 views LEFT* [id number] 01/26/2021 10:25 AM RADIATION DOSE METRICS: Total DLP (mGy-cm): 3212.22 FINDINGS: Bones/joints: Comminuted fracture in the distal left femur. The largest fragments are reduced with a metal plate and multiple screws in place. Several small displaced fragments. Mild degenerative changes of the left hip joint. Severe degenerative changes of the left knee joint. Soft tissues: Dehiscent incision along the left lateral thigh with packing material in place. Several small gas bubbles along the lateral hardware. 4.3 x 6.9 x 6.5 cm irregular fluid collection in the mid anteromedial left thigh without peripheral enhancement. Mild subcutaneous fat stranding throughout the left thigh. CT/CT femur LT w con [id number] IMPRESSION: 1. Open reduction internal fixation of the comminuted distal left femur fracture. A few tiny gas bubbles adjacent to the lateral hardware may be postsurgical, but infection of the hardware is not excluded. 2. Dehiscent left lateral thigh incision with packing material. 3. 6.9 cm irregular fluid collection in the anteromedial left thigh without peripheral enhancement. This is most likely a hematoma or seroma. Infection or early abscess cannot be entirely excluded. Radiation Dose CTDIVOL = (mGy): DLP = 3212.22 (mGy-cm)
--- NOTE | 2021-04-15 13:12 | CTR_ITS ---
PROCEDURE INFORMATION: Exam: CT Left Lower Extremity With Contrast; Lower Leg Exam date and time: 04/15/2021 1:12 PM Age: 70 years old Clinical indication: Swelling, leg or foot; Prior surgery; Additional info: Septic arthritis and abscess TECHNIQUE: Imaging protocol: CT of the Left lower extremity with intravenous contrast was performed. Exam focused on the lower leg. Radiation optimization: All CT scans at this facility use at least one of these dose optimization techniques: automated exposure control; mA and/or kV adjustment per patient size (includes targeted exams where dose is matched to clinical indication); or iterative reconstruction. Contrast material: OMNI 350; Contrast volume: 95 ml; Contrast route: INTRAVENOUS (IV); COMPARISON: DX XR ankle LT min 3V* [id number] 01/26/2021 10:25 AM RADIATION DOSE METRICS: Total DLP (mGy-cm): 865.47 FINDINGS: Bones/joints: CT of the left lower leg from the level of the knee joint through the ankle joint. Severe degenerative changes of the 3 knee compartments. Partially visualized hardware in the distal left femur. Near completely healed oblique fracture in the distal diaphysis of the left fibula. No acute fracture. The ankle joint is intact with mild degenerative changes. Soft tissues: Mild subcutaneous fat stranding in the left lower extremity. Multiple subcutaneous soft tissue calcifications in the anterior rueda region. No organized fluid collection or abscess. Vasculature: Diffuse atherosclerotic calcifications. Multiple varicosities. CT/CT lower leg LT w con [id number] IMPRESSION: 1. No acute finding in the left lower leg. 2. Near completely healed fracture in the distal left fibula. Radiation Dose CTDIVOL = (mGy): DLP = 865.47 (mGy-cm)
--- NOTE | 2021-04-15 13:20 | CTR_ITS ---
PROCEDURE INFORMATION: Exam: CTA Chest With Contrast Exam date and time: 04/15/2021 1:20 PM Age: 70 years old Clinical indication: Other: Sepsis, R/O pe TECHNIQUE: Imaging protocol: Computed tomographic angiography of the chest with contrast. 3D rendering (Not supervised by radiologist): MIP and/or 3D reconstructed images were created by the technologist. Radiation optimization: All CT scans at this facility use at least one of these dose optimization techniques: automated exposure control; mA and/or kV adjustment per patient size (includes targeted exams where dose is matched to clinical indication); or iterative reconstruction. Contrast material: OMNI 350; Contrast volume: 95 ml; Contrast route: INTRAVENOUS (IV); COMPARISON: CTA Chest-Pulmonary Emb [id number] 06/12/2015 1:14 PM RADIATION DOSE METRICS: Total DLP (mGy-cm): 1841.67 FINDINGS: Pulmonary arteries: Normal. No pulmonary emboli. Aorta: Unremarkable. No aortic aneurysm. No aortic dissection. Thyroid: Enlarged left thyroid lobe with multiple nodules measuring up to at least 2.5 cm. Ultrasound follow-up is recommended. Lungs: Mild mosaic attenuation in both lungs. No consolidation. Pleural spaces: Unremarkable. No pneumothorax. No pleural effusion. Heart: Unremarkable. No cardiomegaly. No pericardial effusion. Lymph nodes: Unremarkable. No enlarged lymph nodes. Diaphragm: Elevation of the right diaphragm. Hiatal hernia. Bones/joints: Old healed sternum and left rib fractures. No acute fracture identified. Soft tissues: Unremarkable. IMPRESSION: 1. No evidence for pulmonary embolus or other acute finding. 2. Mild mosaic attenuation in both lungs most likely represents small airways disease and regions of air trapping. 3. 2.5 cm thyroid nodule. Ultrasound follow-up is recommended. COMMENTS: Consistent with the [employer]'s Incidental Findings Committee white paper (J Am Cheryl Radiol 2015): In patients aged 35 years and older with an incidental thyroid nodule equal to or greater than 1.[address], MRI or extrathyroidal US, further evaluation with dedicated thyroid US is recommended for patients with normal life expectancy and without comorbidities. For smaller nodules without suspicious features, no further evaluation or follow up is recommended. PROCEDURE INFORMATION: Exam: CT Abdomen And Pelvis With Contrast Exam date and time: 04/15/2021 1:20 PM Age: 70 years old Clinical indication: Other: Sepsis, R/O pe TECHNIQUE: Imaging protocol: Computed tomography of the abdomen and pelvis with contrast. Radiation optimization: All CT scans at this facility use at least one of these dose optimization techniques: automated exposure control; mA and/or kV adjustment per patient size (includes targeted exams where dose is matched to clinical indication); or iterative reconstruction. Contrast material: OMNI 350; Contrast volume: 95 ml; Contrast route: INTRAVENOUS (IV); COMPARISON: CTA Chest-Pulmonary Emb [id number] 06/12/2015 1:14 PM RADIATION DOSE METRICS: Total DLP (mGy-cm): 1841.67 FINDINGS: Liver: Normal. No mass. Gallbladder and bile ducts: Cholecystectomy. The bile ducts are normal. Pancreas: Normal. No ductal dilation. Spleen: Normal. No splenomegaly. Adrenal glands: Normal. No mass. Kidneys and ureters: Hypodensities in the right kidney are too small to characterize but are most likely cysts. No follow-up imaging recommended. Motion streak artifact through both kidneys.. No hydronephrosis. Stomach and bowel: Mild diverticulosis of the distal colon. No diverticulitis. Moderate stool scattered throughout the entire colon. Gas in the rectum. The small bowel is unremarkable. No wall thickening or obstruction. Appendix: The appendix is visualized and is normal. Intraperitoneal space: Unremarkable. No free air. No significant fluid collection. Vasculature: Infrarenal IVC filter. Numerous calcified phleboliths in the pelvis. Lymph nodes: Unremarkable. No enlarged lymph nodes. Urinary bladder: Unremarkable as visualized. Reproductive: The uterus and ovaries are absent. Bones/joints: Intramedullary alda in the right femur. Scoliosis and degenerative changes of the lumbar spine. No acute fracture. Soft tissues: Small fat containing umbilical hernia. Injection granulomas in the buttock. Other findings: Anterior laparotomy scar. CT/CT angio chest w abd pel w con IMPRESSION: 1. No acute abnormality identified in the abdomen or pelvis. 2. Mild diverticulosis of the colon. COMMENTS: For patients with an IVC filter, recommend assessment for a management plan for the patient's IVC filter. If there is no established management plan, recommend referral to an interventional clinician on a nonemergent basis for evaluation. Radiation Dose CTDIVOL = (mGy): DLP = 1841.67~1841.67 (mGy-cm)
--- NOTE | 2021-04-15 13:23 | P.PN_ITS ---
Subjective Subjective: Interval history: Admitted overnight. H&P labs reviewed. On examination patient sitting comfortably in bed, left wound VAC present. Asking when she can go home. Denies of any pain. Denies of any difficulty in breathing. Has remained afebrile and hemodynamically stable since admission. Currently on 2 L oxygen supplementation saturating 92%. Vitals/I&O/Wt Last Vital Signs Temp 98.4 F 04/15/21 11:39 Pulse 100 04/15/21 11:39 Resp 20 H 04/15/21 11:39 BP 143/69 04/15/21 11:39 Pulse Ox 90 04/15/21 11:39 04/14/21 04/15/21 04/15/21 22:59 06:59 14:59 Intake Total 2300 / 2300 Balance 2300 / 2300 Weight last 48 hrs Weight 84.085 kg Weight 97.522 kg Physical Exam Narrative: EXAM NARRATIVE: General: No acute distress, AO x 2-3, residual contractures and weakness present from old stroke HEENT: PERRLA, pupils bilaterally equal and reactive Chest: Normal vesicular breath sounds, bilateral lower zone coarse crackles present, equal good air entry bilaterally CVS: S1-S2 regular, no murmurs, no tachycardia, no gallops, no rubs Abdomen: Soft, nontender, no organomegaly, bowel sounds present Neuro: Residual weakness present, no facial deformity, AO x3, power 5/5 in all limbs Extremities: Left lower thigh lateral wound VAC present, tenderness present, local rise of temperature present, no erythema present. Data : 04/15/21 02:40 04/15/21 02:40 Micro: Microbiology 04/15/21 03:06 Blood Culture - Preliminary Blood SPECIMEN COLLECTED 04/15/21 02:40 Blood Culture - Preliminary Blood SPECIMEN COLLECTED A&P Assessment and plan (1) Sepsis: Status: Acute Qualifiers: Sepsis acute organ dysfunction status: unspecified Sepsis type: sepsis due to unspecified organism Qualified Code(s): A41.9 - Sepsis, unspecified organism (2) Wound dehiscence, surgical: Status: Acute Qualifiers: Encounter type: subsequent encounter Qualified Code(s): T81.31XD - Disruption of external operation (surgical) wound, not elsewhere classified, subsequent encounter (3) Community acquired pneumonia: Status: Acute (4) Hypoxia: Status: Acute (5) Diastolic CHF: Status: Acute (6) Chronic kidney disease, stage II (mild): Status: Acute (7) Chronic anticoagulation: Status: Acute (8) Presence of IVC filter: Status: Acute Additional A&P Information Sepsis: Criteria met for leukocytosis, fever of more than 102 Fahrenheit on admission, tachycardia. Unknown source for now. Could be secondary to recent wound dehiscence postoperatively for which she underwent wound VAC placement on April 07 versus possible aspiration pneumonia. Aspiration pneumonia less likely the culprit for now. Blood cultures, urinalysis, urine culture, procalcitonin, lactate. Check CT chest abdomen pelvis. CT chest with contrast to rule out PE given history of anticoagulation in the past but not currently on same. Check left lower limb CT with contrast to rule out abscess versus osteomyelitis versus septic arthritis. Will consult orthopedics for further management. For now start patient on vancomycin, cefepime. Dose renally. Will de-escalate as per culture results. Hypoxia: Could not rule out aspiration pneumonia given the history. Continue with dysphagia pur?ed diet. Antibiotics as above. Oxygen supplementation keeping saturation more than 90%. COVID-19 antigen/PCR sent out. Continue with isolation precautions. Anemia: Most likely postoperative. Hemoglobin 7.8. Baseline hemoglobin seems to be more than 11. Check iron panel. 1 unit blood transfusion. Start on oral supplementation. Protonix 40 mg twice daily. History of diastolic heart failure: Currently seems euvolemic. Last echocardiogram from 2019 shows an EF of 70%, RVSP of 39 mmHg with mild AI. CKD: Creatinine seems to be at baseline. Medical reconciliation done for nephrotoxic drugs. History of chronic anticoagulation/IVC filter placement: Anticoagulation not on MAR currently. We will confirm with skilled nursing and family before starting anticoagulation. Continue other chronic medications including amitriptyline, Celexa, diazepam at half dose 2.5 mg twice daily, oxybutynin, Requip, tizanidine, trazodone. CODE STATUS: Full code. Dysphagia 1 pur?ed diet. SCDs for DVT prophylaxis, hold off on Lovenox given anemia. Protonix for PUD prophylaxis. Plan for the day: 3 follow-up culture results, follow-up CT scan. Continue with IV antibiotics. We will try to get in touch with patient's regarding anticoagulation. Continue to monitor vitals. Attestations Medical Necessity Statement*: Requires further hospitalization for management of sepsis most likely secondary to localized wound dehiscence postoperatively, possible aspiration pneumonia, anemia requiring blood transfusion Time Spent in Patient Care: Greater than 35 minutes (>than 50% of time spent in counselling and/or direct pt care on unit) . Coding Level of Care Code Acute Ad Operations Intern for [facility] Fwd Diagnoses Sepsis A41.9 Sepsis acute organ dysfunction status: unspecified Sepsis type: sepsis due to unspecified organism Wound dehiscence, surgical T81.31XD Encounter type: subsequent encounter Community acquired pneumonia J18.9 Hypoxia R09.02 Diastolic CHF I50.30 Chronic kidney disease, stage II (mild) N18.2 Chronic anticoagulation Z79.01 Presence of IVC filter Z95.828
[2021-04-15 16:30] LABS: INR 1.24 (0.8-1.2)
[2021-04-15] MEDS: iohexol 350 mg/mL 100 mL Btl IV (17:02)
[2021-04-15] MEDS: oxybutynin 5 mg Tablet PO (17:25)
[2021-04-15] MEDS: diazePAM 5 mg Tablet 2.5 MG PO (17:26)
[2021-04-15] MEDS: sodium chloride 0.9% (100 ml) 100 ML (18:34)
[2021-04-15] MEDS: trazodone 100 mg Tablet PO (20:17)
[2021-04-15] MEDS: ropinirole 2 mg Tablet PO (20:17)
[2021-04-15] MEDS: amitriptyline 25 mg Tablet PO (20:17)
[2021-04-15] MEDS: atorvastatin 40 mg Tablet PO (20:17)
[2021-04-16] VITALS: BP 147/77; PULSE 86; RESP 41; TEMP 37.5; O2SAT 93
[2021-04-16 04:00] VITALS: BP 142/72; PULSE 88; RESP 30; TEMP 37.6; O2SAT 95
[2021-04-16] MEDS: ropinirole 1 mg Tablet PO (05:19)
[2021-04-16 05:25] LABS: Basophils # 0.1 10^3/uL (0.0-0.1); Basophils % 0.5 %; Eosinophils # 0.8 10^3/uL (0.0-0.8); Hematocrit 25.9 % (37.0-47.0); Hemoglobin 7.9 g/dL (11.5-15.3); Lymphocytes % 14.6 %; Mean Corpuscular HGB Conc 30.5 g/dL (30.0-36.0); Mean Corpuscular Hemoglobin 26.1 pg (28.0-34.0); Mean Corpuscular Volume 85.5 fl (81-99); Mean Platelet Volume 9.5 fL (7.4-10.4); Monocytes # 1.4 10^3/uL (0.2-0.9); Monocytes % 10.5 %; Neutrophils # 9.14 10^3/uL (1.8-7.7); Neutrophils % 67.3 %; Nucleated Red Blood Cells % 0 %; Platelet Count 404 10^3/cmm (130-400); Red Blood Count 3.03 10^6/uL (4.1-5.3); Red Cell Distribution Width 17.6 % (12.1-15.1); White Blood Count 13.6 10^3/uL (4.0-10.0)
[2021-04-16 05:40] LABS: Alanine Aminotransferase 7 U/L (0-33); Albumin Level 2.1 g/dL (3.5-5.2); Alkaline Phosphatase 21 IU/L (35-105); Anion Gap 12.9 (5-19); Aspartate Amino Transferase 15 U/L (0-32); Blood Urea Nitrogen 14 mg/dL (8-23); Calcium 8.3 mg/dL (8.5-10.5); Carbon Dioxide 28 mmol/L (22-29); Chloride 99 mmol/L (98-107); Chol HDL Ratio 3.54 mg/dL (0.0-4.40); Cholesterol 99 mg/dL (0-200); Globulin 4.4 g/dL (1.3-4.6); Glomerular Filtration Rate 98.8 mL/min (90-130); Glucose 113 mg/dL (65-115); HDL Cholesterol 28 mg/dL (60-100); LDL Cholesterol Calculated 54 mg/dL (50-129); LDL HDL Ratio 1.93 RATIO (0.00-3.22); Osmolality Calculated 283 mOsm/kg (285-295); Phosphorus 3.1 mg/dL (2.5-4.5); Potassium 3.9 mmol/L (3.5-5.1); Sodium 136 mmol/L (136-145); Total Bilirubin 0.5 mg/dL (0.15-1.2); Total Protein 6.5 g/dL (6.6-8.7); Triglycerides 87 mg/dL (0-150)
[2021-04-16] MEDS: vancomycin 1,000 MG in sodium chloride 0.9% 250 ML 250 MG IV (06:44)
[2021-04-16 07:43] VITALS: BP 131/72; PULSE 79; RESP 19; TEMP 36.6; O2SAT 92
[2021-04-16] MEDS: citalopram 20 mg Tablet PO (08:17)
[2021-04-16] MEDS: diazePAM 5 mg Tablet 2.5 MG PO ×2 (08:17→17:13)
[2021-04-16] MEDS: oxybutynin 5 mg Tablet PO ×2 (08:17→17:14)
[2021-04-16] MEDS: ferrous sulfate EC 325 mg Tablet PO (08:17)
[2021-04-16] MEDS: pantoprazole 40 mg SDV IVP ×2 (10:54→23:09)
[2021-04-16] MEDS: cefepime 2,000 MG in sodium chloride 0.9% (plus) 50 ML 100 MG IV ×2 (10:55→23:16)
[2021-04-16 11:40] VITALS: BP 146/74; PULSE 88; RESP 18; O2SAT 90
--- NOTE | 2021-04-16 13:46 | PM.PN ---
Subjective Subjective: Interval history: No acute events overnight. T-max in last 24 hours 99.7 Fahrenheit. Has remained hemodynamically stable. CT results appreciated. Vitals/I&O/Wt Last Vital Signs Temp 97.9 F 04/16/21 07:43 Pulse 88 04/16/21 11:40 Resp 18 04/16/21 11:40 BP 146/74 04/16/21 11:40 Pulse Ox 90 04/16/21 11:40 04/15/21 04/16/21 04/16/21 22:59 06:59 14:59 Intake Total 807 / 857 50 / 907 660 / 660 Output Total Balance 806 / 556 50 / 606 660 / 660 Weight last 48 hrs Weight 84.453 kg Weight 84.085 kg Weight 97.522 kg Physical Exam Narrative: EXAM NARRATIVE: General: No acute distress, AO x 2-3, residual contractures and weakness present from old stroke HEENT: PERRLA, pupils bilaterally equal and reactive Chest: Normal vesicular breath sounds, bilateral lower zone coarse crackles present, equal good air entry bilaterally CVS: S1-S2 regular, no murmurs, no tachycardia, no gallops, no rubs Abdomen: Soft, nontender, no organomegaly, bowel sounds present Neuro: Residual weakness present, no facial deformity, AO x3, power 5/5 in all limbs Extremities: Left lower thigh lateral wound VAC present, tenderness present, local rise of temperature present, no erythema present. Data : 04/16/21 04:15 04/16/21 04:15 Micro: Microbiology 04/15/21 03:06 Blood Culture - Preliminary Blood NEGATIVE TO DATE 04/15/21 02:40 Blood Culture - Preliminary Blood NEGATIVE TO DATE A&P Assessment and plan (1) Sepsis: Status: Acute Qualifiers: Sepsis acute organ dysfunction status: unspecified Sepsis type: sepsis due to unspecified organism Qualified Code(s): A41.9 - Sepsis, unspecified organism (2) Wound dehiscence, surgical: Status: Acute Qualifiers: Encounter type: subsequent encounter Qualified Code(s): T81.31XD - Disruption of external operation (surgical) wound, not elsewhere classified, subsequent encounter (3) Community acquired pneumonia: Status: Acute (4) Hypoxia: Status: Acute (5) Diastolic CHF: Status: Acute (6) Chronic kidney disease, stage II (mild): Status: Acute (7) Chronic anticoagulation: Status: Acute (8) Presence of IVC filter: Status: Acute Additional A&P Information Sepsis: Criteria met for leukocytosis, fever of more than 102 Fahrenheit on admission, tachycardia. Unknown source for now. Most likely secondary to recent wound dehiscence postoperatively for which she underwent wound VAC placement on April 07. Aspiration pneumonia less likely the culprit for now. CT chest abdomen pelvis appreciated. Ruled out pneumonia with negative consolidation. CT leg results appreciated. Consistent with collection at perioperative region consistent with a possible hematoma versus abscess. Gives history of mild functional wound VAC. Out abscess versus osteomyelitis versus septic arthritis. Orthopedics consulted. Request removal of wound VAC and dressing with wet-to-dry twice daily. Continue with vancomycin, cefepime. Dose renally. Will de-escalate as per culture results. Hypoxia: Resolved could not rule out aspiration pneumonia given the history. Continue with dysphagia pur?ed diet. Antibiotics as above. Oxygen supplementation keeping saturation more than 90%. COVID-19 antigen negative, Covid PCR sent out. Continue with isolation precautions. Anemia: Most likely postoperative. Hemoglobin 7.8. Baseline hemoglobin seems to be more than 11. Post 1 unit blood transfusion. Start on oral iron supplementation. Protonix 40 mg twice daily. History of diastolic heart failure: Currently seems euvolemic. Last echocardiogram from 2019 shows an EF of 70%, RVSP of 39 mmHg with mild AI. CKD: Creatinine seems to be at baseline. Medical reconciliation done for nephrotoxic drugs. History of chronic anticoagulation/IVC filter placement: Anticoagulation not on MAR currently. We will confirm with custodial and family before starting anticoagulation. Continue other chronic medications including amitriptyline, Celexa, diazepam at half dose 2.5 mg twice daily, oxybutynin, Requip, tizanidine, trazodone. CODE STATUS: Full code. Dysphagia 1 pur?ed diet. SCDs for DVT prophylaxis, hold off on Lovenox given anemia. Protonix for PUD prophylaxis. Attestations Medical Necessity Statement*: Requires further hospitalization for management of sepsis secondary to possible abscess collection related to recent surgery, anemia Time Spent in Patient Care: Greater than 35 minutes (>than 50% of time spent in counselling and/or direct pt care on unit). 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
[2021-04-16] MEDS: HYDROcodone-acetaminophen 5-325 mg Tablet 1 TAB PO ×2 (14:50→23:09)
--- NOTE | 2021-04-16 15:00 | PC.NURSE ---
Doctor verbally told this nurse to take wound vac off patients leg at this time and place wet to dry dressing. States to notify about drainage.
[2021-04-16 15:50] VITALS: BP 156/86; PULSE 87; RESP 16; TEMP 36.8; O2SAT 89
[2021-04-16 16:19] LABS: Quest SARS-CoV-2 RNA NOT DETECTED (NOT DETECTED)
--- NOTE | 2021-04-16 16:30 | PC.NURSE ---
This nurse notified doctor on drainage that was noted after wound vac was taken off patient. New orders received to obtain hgb at this time.
[2021-04-16] MEDS: metoprolol tartrate 25 mg Tablet 12.5 MG PO (17:14)
[2021-04-16 17:51] LABS: Hemoglobin 8.1 g/dL (11.5-15.3)
[2021-04-16 20:00] VITALS: BP 142/88; PULSE 82; RESP 18; TEMP 37.1; O2SAT 91
[2021-04-16] MEDS: atorvastatin 40 mg Tablet PO (21:15)
[2021-04-16] MEDS: trazodone 100 mg Tablet PO (21:15)
[2021-04-16] MEDS: ropinirole 2 mg Tablet PO (21:15)
[2021-04-16] MEDS: amitriptyline 25 mg Tablet PO (21:15)
[2021-04-17] VITALS: BP 124/71; PULSE 79; RESP 18; TEMP 36.8; O2SAT 91
[2021-04-17] MEDS: vancomycin 1,000 MG in sodium chloride 0.9% 250 ML 250 MG IV (02:32)
[2021-04-17 04:00] VITALS: BP 124/65; PULSE 93; RESP 19; TEMP 36.2; O2SAT 92
[2021-04-17] MEDS: ropinirole 1 mg Tablet PO (05:37)
--- NOTE | 2021-04-17 06:53 | PM.CONSULT ---
Documented by User: AI Sarkar 04/17/21 07:10 Providers/Reason For Consult Consulting Physician/Specialty*: Orthopedics Reason for Consult*: Left Leg Wound Attending Physician: Nathan Melendez MD Primary Care Provider: Efren Romano MD History of Present Illness History of Present Illness Doris Clarke is a 70 year old female presented to the emergency room on 04/15/2021 from the custodial. She has been under the care of Dr. Carey for her left thigh wound and had a wound VAC. She is a poor historian as she is confused most of the information is provided by the nurse and gleaned from the chart. Evaluation on shows the wet-to-dry dressings to be clean and dry with no obvious drainage there is no redness around the wound. Patient appears comfortable. Review of Systems Const: Reports: fever(s) and chills Eyes: Denies: blurry vision or eye discomfort ENMT: Denies: throat pain or dental pain Card: Denies: chest pain Resp: Denies: dyspnea GI: Denies: abdominal pain, nausea, vomiting or diarrhea : Denies: dysuria Musc: Denies: neck pain or back pain Skin/Breast: Reports: surgical incision; Denies: rash Neuro: Denies: headache(s) Psych: Reports: sleeping more; Denies: depression Costa/Lymph: Denies: easy bruising All/Imm: Denies: urticaria Meds/Allergies Home Medications and Allergies Home Medications Medication Instructions Recorded Confirmed Last Taken Type atorvastatin [Lipitor] 40 mg PO BEDTIME 03/21/20 04/16/21 04/06/21 History citalopram [Celexa] 20 mg PO DAILY 03/21/20 04/16/21 04/06/21 History ferrous sulfate [Iron (ferrous 325 mg PO DAILY 03/21/20 04/16/21 04/06/21 History sulfate)] metoprolol tartrate 12.5 mg PO BID 03/21/20 04/16/21 04/06/21 History oxybutynin chloride 5 mg PO BID 03/21/20 04/16/21 04/06/21 History ropinirole See Rx Instructions .ROUTE .COMPLEX 03/21/20 04/16/21 04/07/21 06:00 History tizanidine 4 mg PO TID PRN 03/21/20 04/16/21 04/06/21 History trazodone 100 mg PO BEDTIME 03/21/20 04/16/21 04/06/21 History amitriptyline 25 mg PO BEDTIME 12/30/20 04/16/21 04/06/21 History diazepam 5 mg PO BID 12/30/20 04/16/21 04/06/21 History acetaminophen 1,000 mg PO Q8H #0 tab 01/04/21 04/16/21 04/06/21 Rx furosemide [Lasix] 60 mg PO DAILY@0800 04/06/21 04/16/21 04/06/21 History nitrofurantoin macrocrystal 50 mg PO DAILY 04/06/21 04/16/21 04/06/21 History [Macrodantin] oxycodone 5 mg PO Q4H PRN 04/06/21 04/16/21 04/06/21 History woundvac #1 ea NS 04/06/21 04/16/21 Unknown Rx clindamycin HCl [Cleocin HCl] 300 mg PO Q6H 21 Days #84 cap 04/07/21 04/16/21 Unknown Rx alprazolam [Xanax] 0.5 mg PO DAILY PRN 04/16/21 04/16/21 Unknown History amino acids-protein hydrolys 30 ea PO TID 04/16/21 04/16/21 Unknown History [Pro-Stat 150] tramadol 50 mg PO Q8H PRN 04/16/21 04/16/21 Unknown History Allergies Allergy/AdvReac Type Severity Reaction Status Date / Time fluconazole Allergy Unknown Verified 04/06/21 14:35 latex Allergy Unknown Verified 04/06/21 14:35 Sulfa (Sulfonamide Allergy Unknown Verified 04/06/21 14:35 Antibiotics) Current Medications Current Medications Generic Name Dose Route Start Last Admin Trade Name Freq PRN Reason Stop Dose Admin Hydrocodone Bitart/Acetaminophen 1 tab 04/15/21 11:09 04/16/21 23:09 Hydrocodone-Acetaminophen 5-325 Mg Tablet PO 1 tab Q8H PRN Administration MODERATE TO SEVERE PAIN Amitriptyline HCl 25 mg 04/15/21 21:00 04/16/21 21:15 Amitriptyline 25 Mg Tablet PO 25 mg BEDTIME AQUILINO Administration Atorvastatin Calcium 40 mg 04/15/21 21:00 04/16/21 21:15 Atorvastatin 40 Mg Tablet PO 40 mg BEDTIME AQUILINO Administration Citalopram Hydrobromide 20 mg 04/16/21 09:00 04/16/21 08:17 Citalopram 20 Mg Tablet PO 20 mg DAILY AQUILINO Administration Diazepam 2.5 mg 04/15/21 18:00 04/16/21 17:13 Diazepam 5 Mg Tablet PO 2.5 mg BID AQUILINO Administration Ferrous Sulfate 325 mg 04/16/21 09:00 04/16/21 08:17 Ferrous Sulfate Ec 325 Mg Tablet PO 325 mg DAILY AQUILINO Administration Cefepime HCl 2,000 mg/ Sodium 50 mls @ 100 mls/hr 04/15/21 11:15 04/16/21 23:45 Chloride IV Infused Q12H AQUILINO Infusion Protocol Vancomycin HCl 1,000 mg/ 250 mls @ 250 mls/hr 04/15/21 13:30 04/17/21 03:48 Sodium Chloride IV Infused Q18H AQUILINO Infusion Metoprolol Tartrate 12.5 mg 04/16/21 18:00 04/16/21 17:14 Metoprolol Tartrate 25 Mg Tablet PO 12.5 mg BID AQUILINO Administration Oxybutynin Chloride 5 mg 04/15/21 18:00 04/16/21 17:14 Oxybutynin 5 Mg Tablet PO 5 mg BID AQUILINO Administration Pantoprazole Sodium 40 mg 04/15/21 11:15 04/16/21 23:09 Pantoprazole 40 Mg Sdv IVP 40 mg Q12H AQUILINO Administration Ropinirole HCl 1 mg 04/16/21 06:00 04/17/21 05:37 Ropinirole 1 Mg Tablet PO 1 mg QAM AQUILINO Administration Ropinirole HCl 2 mg 04/15/21 21:00 04/16/21 21:15 Ropinirole 2 Mg Tablet PO 2 mg BEDTIME AQUILINO Administration Trazodone HCl 100 mg 04/15/21 21:00 04/16/21 21:15 Trazodone 100 Mg Tablet PO 100 mg BEDTIME AQUILINO Administration PFSH Acute PFSH: Medical History (Updated 04/17/21 @ 07:08 by AI Sarkar) Adult BMI 40.0-44.9 kg/sq m Anemia Chronic anemia Chronic antibiotic suppression Has been taking nitrofurantoin for last 6 months as per the Chronic anticoagulation Coumadin 2 and 3mg daily depending on INR Chronic kidney disease, stage II (mild) CVA (cerebral vascular accident) Dyslipidemia Elevated hemidiaphragm Fracture of distal end of femur Fracture of lateral malleolus of left fibula Hypertension Left-sided weakness Lymphedema Moderate pulmonary arterial systolic hypertension Presence of IVC filter Supracondylar fracture of left femur UTI (urinary tract infection) Venous stasis dermatitis Surgical History H/O shoulder surgery History of hip surgery History of hysterectomy S/P cholecystectomy Family History Other CAD (coronary artery disease) Hypertension Stroke Social History Alcohol intake: never Household members: spouse Housing: House Female Reproductive History: Date of last menstrual period: 12/31/20 Vitals/I&O/Wt Last Vital Signs Temp 97.1 F L 04/17/21 04:00 Pulse 93 04/17/21 04:00 Resp 19 H 04/17/21 04:00 BP 124/65 04/17/21 04:00 Pulse Ox 92 04/17/21 04:00 04/16/21 04/16/21 04/17/21 14:59 22:59 06:59 Intake Total 900 / 900 600 / 1500 540 / 2040 Balance 900 / 900 600 / 1500 540 / 2040 Weight last 48 hrs Weight 189 lb 3 oz Weight 186 lb 3 oz Physical Exam Narrative: EXAM NARRATIVE: Patient was evaluated in room two sixty-two bed one with no family present. Nurse was present. Patient was resting comfortably. Upon discussion with the patient she reported a fall at home. It seems that that was the initial injury consistent with her confusion. She presented to [facility] from a local custodial. She had a wound VAC present the nurse reported there was a functional wound VAC removed during her shift. Pack to the wound with wet-to-dry's and the nurse had reported there was no drainage at that time no appearance of infection. Upon evaluation the patient seems to be painful wherever she is touched over the left hip all the way to the foot on the left side. There is no obvious deformity of the leg no obvious skin changes. She wiggles her toes in both lower extremities toes are warm to the touch. She can dorsiflex and plantarflex without problems. The wound over the left lateral thigh appears to be granulating in nicely there is no obvious erythema or drainage. There is no palpable drainage around the wound. Skin is warm to the touch calves are supple no medial thigh tenderness. She does have diffuse palpable pain over the left knee. Dorsalis pedis and posterior pulses are palpable. HENMT: COMMON NORMALS: normocephalic and atraumatic HEAD & SCALP: normocephalic and atraumatic Resp: COMMON NORMALS: normal respiratory effort Cardio: COMMON NORMALS: regular rate and regular rhythm RATE: regular rate RHYTHM: regular rhythm Psych: OTHER: Patient is confused Skin: NARRATIVE SKIN EXAM: Wound over the left lateral thigh with wet-to-dry packing appears to have granular tissue no obvious redness purulence or odor. Appears to be healing nicely. Data Micro: Micro: Microbiology 04/15/21 03:06 Blood Culture - Pr eliminary Blood NEGATIVE TO AYLEEN E 04/15/21 02:40 Blood Culture - Pr eliminary Blood NEGATIVE TO AYLEEN E A&P Assessment and plan (1) Wound of left lower extremity: At this point the wound appears to be granulating in nicely. There is no obvious infection evident. Will recommend CRP, sed rate for baseline tracking of potential wound changes. Will discuss with Dr. Khoury treatment course. He recommends reapplying the wound VAC. 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 [facility] Fwd Exam Expanded Problem Focused Diagnoses Wound of left lower extremity S81.802A Documented by User: Saad Khoury DO 04/17/21 07:31 Meds/Allergies Home Medications and Allergies Home Medications Medication Instructions Recorded Confirmed Last Taken Type atorvastatin [Lipitor] 40 mg PO BEDTIME 03/21/20 04/16/21 04/06/21 History citalopram [Celexa] 20 mg PO DAILY 03/21/20 04/16/21 04/06/21 History ferrous sulfate [Iron (ferrous 325 mg PO DAILY 03/21/20 04/16/21 04/06/21 History sulfate)] metoprolol tartrate 12.5 mg PO BID 03/21/20 04/16/21 04/06/21 History oxybutynin chloride 5 mg PO BID 03/21/20 04/16/21 04/06/21 History ropinirole See Rx Instructions .ROUTE .COMPLEX 03/21/20 04/16/21 04/07/21 06:00 History tizanidine 4 mg PO TID PRN 03/21/20 04/16/21 04/06/21 History trazodone 100 mg PO BEDTIME 03/21/20 04/16/21 04/06/21 History amitriptyline 25 mg PO BEDTIME 12/30/20 04/16/21 04/06/21 History diazepam 5 mg PO BID 12/30/20 04/16/21 04/06/21 History acetaminophen 1,000 mg PO Q8H #0 tab 01/04/21 04/16/21 04/06/21 Rx furosemide [Lasix] 60 mg PO DAILY@0800 04/06/21 04/16/21 04/06/21 History nitrofurantoin macrocrystal 50 mg PO DAILY 04/06/21 04/16/21 04/06/21 History [Macrodantin] oxycodone 5 mg PO Q4H PRN 04/06/21 04/16/21 04/06/21 History woundvac #1 ea NS 04/06/21 04/16/21 Unknown Rx clindamycin HCl [Cleocin HCl] 300 mg PO Q6H 21 Days #84 cap 04/07/21 04/16/21 Unknown Rx alprazolam [Xanax] 0.5 mg PO DAILY PRN 04/16/21 04/16/21 Unknown History amino acids-protein hydrolys 30 ea PO TID 04/16/21 04/16/21 Unknown History [Pro-Stat 150] tramadol 50 mg PO Q8H PRN 04/16/21 04/16/21 Unknown History Allergies Allergy/AdvReac Type Severity Reaction Status Date / Time fluconazole Allergy Unknown Verified 04/06/21 14:35 latex Allergy Unknown Verified 04/06/21 14:35 Sulfa (Sulfonamide Allergy Unknown Verified 04/06/21 14:35 Antibiotics) PFSH Acute PFSH: Medical History (Updated 04/17/21 @ 07:08 by AI Sarkar) Adult BMI 40.0-44.9 kg/sq m Anemia Chronic anemia Chronic antibiotic suppression Has been taking nitrofurantoin for last 6 months as per the Chronic anticoagulation Coumadin 2 and 3mg daily depending on INR Chronic kidney disease, stage II (mild) CVA (cerebral vascular accident) Dyslipidemia Elevated hemidiaphragm Fracture of distal end of femur Fracture of lateral malleolus of left fibula Hypertension Left-sided weakness Lymphedema Moderate pulmonary arterial systolic hypertension Presence of IVC filter Supracondylar fracture of left femur UTI (urinary tract infection) Venous stasis dermatitis Surgical History H/O shoulder surgery History of hip surgery History of hysterectomy S/P cholecystectomy Family History Other CAD (coronary artery disease) Hypertension Stroke Social History Alcohol intake: never Household members: spouse Housing: House A&P Assessment and plan (1) Wound of left lower extremity: wound is cleand and dry. Will attempt to replace wound Vac at bedside and can D/C back to [facility] do not appreciate fluid collection on CT Status: Acute Consult Attestations Medical Necessity Statement: per primary service Coding Level of Care Code Acute Ultrasonic Seaming Machine Operator for g Fwd Exam Expanded Problem Focused Diagnoses Wound of left lower extremity S81.802A
[2021-04-17 08:00] VITALS: BP 167/77; PULSE 83; RESP 16; TEMP 37.3; O2SAT 98
[2021-04-17] MEDS: metoprolol tartrate 25 mg Tablet 12.5 MG PO (08:25)
[2021-04-17] MEDS: oxybutynin 5 mg Tablet PO (08:25)
[2021-04-17] MEDS: diazePAM 5 mg Tablet 2.5 MG PO (08:25)
[2021-04-17] MEDS: ferrous sulfate EC 325 mg Tablet PO (08:26)
[2021-04-17] MEDS: citalopram 20 mg Tablet PO (08:26)
[2021-04-17] MEDS: HYDROcodone-acetaminophen 5-325 mg Tablet 1 TAB PO (08:26)
[2021-04-17 08:53] LABS: C Reactive Protein 52.8 mg/L (0.0-4.9)
[2021-04-17 11:43] VITALS: BP 117/64; PULSE 79; RESP 16; TEMP 36.6; O2SAT 94
[2021-04-17] MEDS: pantoprazole 40 mg SDV IVP (11:48)
[2021-04-17] MEDS: cefepime 2,000 MG in sodium chloride 0.9% (plus) 50 ML 100 MG IV (11:54)
--- NOTE | 2021-04-17 12:09 | PC.NURSE ---
Called and gave report to Carmencita Anderson at [place]
[2021-04-17 14:31] VITALS: BP 117/64; PULSE 79; RESP 16; TEMP 36.6; O2SAT 94
--- NOTE | 2021-04-17 14:38 | P.DS_ITS ---
Discharge Providers Date of Admission: 04/15/21 06:24 Date of Discharge: April 17, 2021 Attending Provider at Admission: Ramona Mckeon MD Attending Provider at Discharge: James Beard Primary Care Provider: Efren Romano MD Diagnoses at Discharge Discharge Diagnosis (1) Wound of left lower extremity: Status: Acute (2) Sepsis: Status: Acute Qualifiers: Sepsis acute organ dysfunction status: unspecified Sepsis type: sepsis due to unspecified organism Qualified Code(s): A41.9 - Sepsis, unspecified organism (3) Wound dehiscence, surgical: Status: Acute Qualifiers: Encounter type: subsequent encounter Qualified Code(s): T81.31XD - Disruption of external operation (surgical) wound, not elsewhere classified, subsequent encounter (4) Hypoxia: Status: Acute (5) Presence of IVC filter: Status: Acute (6) Anemia: Status: Acute Reason for Visit Reason for Visit: fever/ sepsis Hospital Course Hospital Course Pleasant 70-year-old lady with recent history of comminuted distal left femoral fracture 3 months ago treated with ORIF, longstanding ankle edema, with subsequent wound dehiscence, following with repeat surgery, recently with wound VAC treatment, started on clindamycin on 04/10. Cultures remaining negative. Difficulties with wound VAC at [facility] including thyroid problems, error message, and contain a shortage. / admitted after episode of fever, vomiting, with 20 she was eating a hot dog. He previously on dysphagia level 1, pur?ed diet. With new O2 requirement on presentation. Presentation with sepsis, leukocytosis, fever, and hospital treated with cefepime, vancomycin, blood cultures obtained so far negative. COVID-[address] chest abdomen pelvis without evidence of PE, mild mosaic continuation in both lungs most likely due to small airway disease and regions of air trapping, 2.5 cm thyroid nodule. Ultrasound follow-up recommended. CT abdomen pelvis without acute abnormality. Mild diverticulosis of the colon. CT left femur, ORIF of comminuted distal right femur fracture, few tiny gas bubbles adjacent to the lateral hardware may be postsurgical, infection of the hardware not excluded, lisinopril for incision with packing material, 6.9 cm irregular fluid collection in anteromedial left thigh without peripheral enhancement, fluctuance, or seroma, infection or early abscess cannot be entirely excluded. Left lower leg CT without acute normality, near completely healed fracture diastolic blood. CT left femur She was maintained on scheduled pur?ed diet in the hospital. Was assessed by orthopedics for physical clinical condition, imaging, replacement of VAC. Wound found to appear in good condition, with healthy granulation tissue, healing well, wound VAC replaced at bedside. Cleared for discharge with outpatient follow-up. Prescription continue oral antibiotics at this time, Levaquin, continue clindamycin. Follow-up with Dr. Degroot. Please make sure she has available supply of wound VAC containers. This was discussed with [facility] as well. Nonweightbearing on the left lower extremity. We will request follow-up with infectious disease. She is otherwise continuing on 2 L of oxygen by nasal cannula, taper off as needed. As per her was previously recommended to wear her oxygen mask by her primary provider while at night. This requested to be continued at the [facility]. At this time request is made to continue dysphagia level 1 with pur?ed diet and follow-up with speech therapy to reassess for any potential aspiration. With possible bronchitis, additional prescription given for albuterol inhaler, Tessalon Perles. Please follow-up for resolution of respiratory illness. Please follow-up with regards to incidentally noted thyroid nodule. Please follow-up with regards to COVID-19 booster which she would now qualifies. Per discussion with orthopedics also started on at least prophylactic Lovenox dose. Per discussion with [facility] currently does not appear to be on antic oagulation. If tolerating prophylactic dose, please consider revisiting regarding anticoagulation in the setting of IVC filter. Please follow-up regarding anemia. Continue follow-up with regards to CKD, diastolic CHF, other chronic conditions. Physical Exam Narrative: EXAM NARRATIVE: at bedside. Const: COMMON NORMALS: no acute distress, patient oriented x3 and alert GENERAL APPEARANCE: cooperative and comfortable ORIENTATION/CONSCIOUSNESS: Yes awake HENMT: COMMON NORMALS: oropharynx normal Neck/C-Spine: COMMON NORMALS: no JVD Resp: COMMON NORMALS: normal respiratory effort and clear to auscultation bilaterally AUSCULTATION: clear to auscultation bilaterally Cardio: COMMON NORMALS: no JVD, regular rhythm, S1 normal heart sound present, S2 normal heart sound present and No murmurs present (Cardio) RHYTHM: regular rhythm HEART SOUNDS: S1 normal heart sound present and S2 normal heart sound present GI: COMMON NORMALS: Normal to inspection, nondistended, normoactive bowel sounds present, Soft to palpation and non-tender PALPATION: Yes Soft to palpation Extremity: COMMON NORMALS: no joint enlargement and no pedal edema OTHER: Left thigh wound with wound VAC in place, no surrounding erythema or swelling. BL LE appears perfused. Neuro: COMMON NORMALS: patient oriented x3 and moves all extremities SENSORIUM/ORIENTATION: Yes alert Skin: COMMON NORMALS: no rashes or lesions noted GENERAL SKIN EXAM: no rashes or lesions noted Discharge Data Data Completed and Pending: Completed Studies During Hospitalization Category Date Time Status CT angio chest w abd pel w con Rout ine Cat Scan 04/15/21 13:[address] femur LT w con [id number] Routine Cat Scan 04/15/21 13:[address] lower leg LT w con [id number] Routine Cat Scan 04/15/21 13:12 Completed XR chest 1V ольга ble [id number] Urgent Exams 04/15/21 02:16 Completed Pending at discharge Category Date Time Status Blood Culture Sta t Lab 04/15/21 03:06 Results Erythrocyte Sedim entation Rate Rout ine Lab 04/17/21 08:08 Received Labs from last 24 hours 04/17/21 04/17/21 04/16/21 08:08 08:08 16:30 Hgb 8.1 L ESR Pending C-Reactive Protein 52.8 H SARS-CoV-2 RNA (RT -PCR) 04/15/21 05:40 Hgb ESR C-Reactive Protein SARS-CoV-2 RNA (RT -PCR) Not detected Vitals: Last Vital Signs Temp 97.9 F 04/17/21 14:31 Pulse 79 04/17/21 14:31 Resp 16 04/17/21 14:31 BP 117/64 04/17/21 14:31 Pulse Ox 94 04/17/21 14:31 Discharge Plan Discharge Patient Disposition: Xfer SNF Condition: Stable Prescriptions: New levofloxacin 750 mg tablet 750 mg PO DAILY 14 Days Qty: 14 RF: 0 albuterol sulfate 90 mcg/actuation HFA aerosol inhaler 2 inh inhalation Q8H PRN (Reason: shortness of breath or wheezing) Qty: 6.7 RF: 0 Tessalon Perles 100 mg capsule 100 mg PO TID PRN (Reason: cough) Qty: 30 RF: 0 Lovenox 40 mg/0.4 mL syringe 40 mg SUBCUT Q24H Qty: 12 RF: 0 Continued (DME) woundvac See Rx Instructions .Route .MEDSUPPLY Qty: 1 RF: 0 atorvastatin [Lipitor] 40 mg tablet 40 mg PO BEDTIME RF: 0 ropinirole 1 mg tablet See Rx Instructions .ROUTE .COMPLEX RF: 0 tizanidine 4 mg tablet 4 mg PO TID PRN (Reason: Muscle Spasm) RF: 0 citalopram [Celexa] 20 mg tablet 20 mg PO DAILY RF: 0 trazodone 100 mg tablet 100 mg PO BEDTIME RF: 0 ferrous sulfate [Iron (ferrous sulfate)] 325 mg (65 mg iron) Tablet 325 mg PO DAILY RF: 0 oxybutynin chloride 5 mg tablet 5 mg PO BID RF: 0 metoprolol tartrate 25 mg tablet 12.5 mg PO BID RF: 0 furosemide [Lasix] 40 mg tablet 60 mg PO DAILY@0800 RF: 0 oxycodone 5 mg Tablet 5 mg PO Q4H PRN (Reason: Pain) RF: 0 nitrofurantoin macrocrystal [Macrodantin] 50 mg Capsule 50 mg PO DAILY RF: 0 clindamycin HCl [Cleocin HCl] 300 mg capsule 300 mg PO Q6H 21 Days Qty: 84 RF: 0 amino acids-protein hydrolys Liquid 30 ea PO TID RF: 0 tramadol 50 mg Tablet 50 mg PO Q8H PRN (Reason: Pain) RF: 0 Xanax 0.5 mg Tablet 0.5 mg PO DAILY PRN (Reason: Anxiety) RF: 0 amitriptyline 25 mg tablet 25 mg PO BEDTIME RF: 0 diazepam 5 mg tablet 5 mg PO BID RF: 0 acetaminophen 500 mg Tablet 1,000 mg PO Q8H Qty: 0 RF: 0 Discharge Orders: Discharge Order (Routine); Ordered 04/17/21 Ordered By: James Beard Referrals: Kathy Degroot MD [Physician] - 04/24/21 1:15 pm Ramona Mckeon MD [Hospitalist] - 05/02/21 11:00 am (Next available appointment for infectious disease clinic.) Efren Romano MD [Primary Care Provider] - 05/02/21 3:00 pm Discharge Diet: As Directed Discharge Activity: Oxygen as instructed Patient Instructions: Benzonatate (By mouth), Clindamycin (By mouth), Albuterol (By breathing), Levofloxacin (By mouth), Opioid Safety Activity Restrictions/Additional Instructions: Continue wound vac. Please make sure she has supply of woundvac containers. Non-weightbearing LLE. Follow up with Dr Degroot. Please make sure she is wearing oxygen mask at night as instructed by her primary doctor. She will also need a COVID-19 booster. Continue dysphagia level I diet, maintain aspiration precautions and have speech therapy follow up with her to reassess for aspiration. Continue 2l nasal cannula oxygen as needed during the day to maintain saturaiton 92%. For bronchitis, in addition to antibiotic as above for the wound, albuterol inhaler as needed and tessalon perles are requested. Please confirm regarding blood thinner medication due to IVC filter presence and history of VTE. Discharge Attestations Time Spent in Discharge Care*: greater than 30 min Status at Discharge: Cognitive status at discharge: mildly impaired cognition , Behavioral status at discharge: cooperative , Quality Metrics Clinical Quality Measures During this hospital stay, did patient experience: None Coding Level of Care Code Acute [facility] note Diagnoses Wound of left lower extremity S81.802A Sepsis A41.9 Sepsis acute organ dysfunction status: unspecified Sepsis type: sepsis due to unspecified organism Wound dehiscence, surgical T81.31XD Encounter type: subsequent encounter Hypoxia R09.02 Presence of IVC filter Z95.828 Anemia D64.9
--- NOTE | 2021-04-17 15:01 | PC.NURSE ---
THIS NURSE ATTEMPTED TO CONNECT THE WOUND VAC DRESSING APPLIED THIS MORNING TO PATIENT'S HOME WOUND VAC AND WAS UNABLE TO DO SO. KIMMIE AT [facility] WAS NOTIFIED THAT OUR SUPPLIES DID NOT MATCH AND THE DRESSING WOULD HAVE TO BE CHANGED WHEN SHE ARRIVES BACK TO [facility]. THIS NURSE LEFT DRESSING IN PLACE AND DISCONNECTED OUR WOUND VAC AND SENT PATIENT'S HOME WOUND VAC WITH HER.
[2021-04-24 12:11] LABS: Erythrocyte Sedimentation Rate 25 mm/hr (0-15)
== END 2021-04-17 14:32 | disposition skilled nursing facility (03) | DRG 871 ==
LOC: ER 04:24 → MEDSURG 05:06
PROVIDERS: Physician Assistant; Student in an Organized Health Care Education/Training Program; Admitting Provider Student in an Organized Health Care Education/Training Program; Emergency Provider Emergency Medicine; PCP Family Medicine; Visit Provider Internal Medicine
DX: A41.9 Sepsis, unspecified organism (principal); J18.9 Pneumonia, unspecified organism; I13.0 Hypertensive heart and chronic kidney disease with heart failure and stage 1 through stage 4 chronic kidney disease, or unspecified chronic kidney disease; T81.30XA Disruption of wound, unspecified, initial encounter; D64.89 Other specified anemias; E11.22 Type 2 diabetes mellitus with diabetic chronic kidney disease; N18.2 Chronic kidney disease, stage 2 (mild); I50.9 Heart failure, unspecified; I69.991 Dysphagia following unspecified cerebrovascular disease; R13.10 Dysphagia, unspecified; E78.2 Mixed hyperlipidemia; I27.20 Pulmonary hypertension, unspecified; I87.2 Venous insufficiency (chronic) (peripheral); Z79.01 Long term (current) use of anticoagulants; Z79.891 Long term (current) use of opiate analgesic
CPT/HCPCS: 36415; 36430; 71045; 71275; 73701; 74177; 80053; 80061; 81001; 83036; 83540; 83550; 83605; 83735; 83880; 84100; 84145; 84443; 85018; 85025; 85045; 85610; 85651; 86140; 86850; 86900; 86920; 87040; 87426; 87635; 93005; 94664; 96365; 96367; 97161; 99285; C9113; J0456; J0692; J0696; J3370; J7030; J7050; P9016; Q9967

== ENCOUNTER 2021-04-21 20:50 | Inpatient (IN) | payer MEDICARE, MEDICAID, SELFPAY ==
[2021-04-21 20:48] VITALS: BP 141/100; RESP 16; TEMP 37.2; O2SAT 95; BMI 28.0
--- NOTE | 2021-04-21 21:14 | XRR_ITS ---
PROCEDURE INFORMATION: Exam: XR Chest Exam date and time: 04/21/2021 9:14 PM Age: 70 years old Clinical indication: Cough and fever; Additional info: Fever cough TECHNIQUE: Imaging protocol: XR of the chest. Views: 1 view. COMPARISON: CR (CHEST, ) 04/15/2021 2:22 AM FINDINGS: Lungs: Mild perihilar opacities most consistent with mild bilateral perihilar pneumonia. Pleural spaces: Unremarkable. No pleural effusion. No pneumothorax. Heart/Mediastinum: Unremarkable. No cardiomegaly. Vasculature: Calcification of the thoracic aorta and/or great vessels consistent with atherosclerotic vessel disease. Bones/joints: Mild dextroscoliosis. Mild thoracic spondylosis. Other findings: Stable postoperative changes over the left shoulder. XR/XR chest 1V portable [id number] IMPRESSION: Mild perihilar opacities most consistent with mild bilateral perihilar pneumonia. Radiation Dose CTDIVOL = (mGy): DLP = (mGy-cm)
--- NOTE | 2021-04-21 21:38 | W.ED.FEVER ---
Documented by User: Fabricio Valdovinos DO 04/22/21 00:54 HPI - Fever General: Chief Complaint: Fever Stated Complaint: fever Time Seen by Provider: 04/21/21 20:59 History of Present Illness: HPI Narrative: 70-year-old female group home patient who was here last week with a fever. She has been on antibiotics. She was admitted for a fever and probable sepsis at that point. X-ray and CT failed to reveal pneumonia at that point. Abdominal CT was negative she does have a chronic wound to the left femur with wound VAC placement. She has been doing well the past few days without a fever, but today has had a fever up to 102 or above. She denies any chills. She states she has had a cough, without sputum production. She says she was told she had bronchitis on her previous admission last week MD elicited complaint: fever Pertinent past history: sepsis Onset (ago): hour(s) Context: other Exacerbating factors: nothing Relieving factors: acetaminophen Associated symptoms: Reports cough, extremity pain (Chronic left femur) and nausea; Deny abdominal pain, flank pain, chills, chest pain, diarrhea or vomiting Treatments prior to arrival fever: acetaminophen Review of Systems Const: Reports: fever(s); Denies: chills Card: Denies: chest pain GI: Reports: nausea; Denies: abdominal pain, vomiting or diarrhea : Denies: flank pain Musc: Reports: extremity pain (Chronic left femur) [facility] ED PFSH: Medical History (Updated 04/22/21 @ 00:54 by Fabricio Valdovinos DO) Adult BMI 40.0-44.9 kg/sq m Anemia Chronic anemia Chronic antibiotic suppression Has been taking nitrofurantoin for last 6 months as per the Chronic anticoagulation Coumadin 2 and 3mg daily depending on INR Chronic kidney disease, stage II (mild) CVA (cerebral vascular accident) Diastolic CHF Dyslipidemia Elevated hemidiaphragm Fracture of distal end of femur Fracture of lateral malleolus of left fibula Hypertension Left-sided weakness Lymphedema Moderate pulmonary arterial systolic hypertension Presence of IVC filter Supracondylar fracture of left femur UTI (urinary tract infection) Venous stasis dermatitis Surgical History H/O shoulder surgery History of hip surgery History of hysterectomy S/P cholecystectomy Family History Other CAD (coronary artery disease) Hypertension Stroke Social History Alcohol intake: never Household members: spouse Housing: House Female Reproductive History: Date of last menstrual period: 12/31/20 Physical Exam Const: GENERAL APPEARANCE: cooperative and frail appearing ORIENTATION/CONSCIOUSNESS: Yes awake, Yes oriented to person, Yes oriented to place and Yes oriented to time Eye: COMMON NORMALS: Equal, round and reactive pupils present PUPIL: Yes Equal, round and reactive pupils present Chest: COMMONS NORMALS: normal inspection of the chest Resp: COMMON NORMALS: normal respiratory effort, No use of accessory muscles and clear to auscultation bilaterally AUSCULTATION: clear to auscultation bilaterally Cardio: COMMON NORMALS: regular rhythm RATE: tachycardic RHYTHM: regular rhythm GI: COMMON NORMALS: Normal to inspection, nondistended, normoactive bowel sounds present, Soft to palpation and non-tender PALPATION: Yes Soft to palpation Extremity: NARRATIVE EXTREMITY EXAM: Left lateral femur incision, with wound VAC placement. Edges are clean, free of cellulitis or streaking. Some bloody drainage in the wound VAC, nothing appears purulent. Neuro: SENSORIUM/ORIENTATION: Yes oriented to person, Yes oriented to place and Yes oriented to time Course Consultations: Consultation #1: [email or web address] Vital Signs: Vital signs: Vital Signs Temperature 99.6 F 04/22/21 00:46 Pulse Rate 85 04/22/21 00:01 Respiratory Rate 23 H 04/22/21 00:46 Blood Pressure 137/71 04/22/21 00:46 Pulse Oximetry 94 04/22/21 00:46 MDM - Fever MDM Narrative: Medical decision making narrative: 71-year-old female presenting with fever, tachycardia, leukocytosis, and elevated CRP. Chronic wound to the left thigh looks nontoxic. She does have bilateral infiltrates on chest x-ray suggestive of pneumonia. He was treated via sepsis protocol, although since she was not hypotensive, and hypoxic, she was not given a fluid bolus as she has a history of fluid retention. She is treated with antibiotics. Covid is pending. Urinalysis is pending. Blood cultures are drawn. Lactate was not elevated. She will be admitted for further treatment. Lab Data: Labs: Lab Results 04/21/21 04/21/21 04/21/21 21:45 21:45 21:45 WBC 15.6 10^3/uL H 10 ^3/uL (4.0-10.0) RBC 3.06 10^6/uL L 10 ^6/uL (4.1-5.3) Hgb 7.8 g/dL L g/dL (11.5-15.3) Hct 26.2 % L % (37.0-47.0) MCV 85.6 fl fl (81-99) MCH 25.5 pg L pg (28.0-34.0) MCHC 29.8 g/dL L g/dL (30.0-36.0) RDW 16.8 % H % (12.1-15.1) Plt Count 512 10^3/cmm H 10 ^3/cmm (130-400) MPV 9.2 fL fL (7.4-10.4) Neut % (Auto) 72.8 % % Lymph % (Auto) 11.8 % % Island % (Auto) 9.0 % % Eos % (Auto) 2.9 % % Baso % (Auto) 0.4 % % Neut # (Auto) 11.37 10^3/uL H 1 0^3/uL (1.8-7.7) Lymph # (Auto) 1.8 10^3/uL 10^3/ uL (0.8-4.8) Island # (Auto) 1.4 10^3/uL H 10^ 3/uL (0.2-0.9) Eos # (Auto) 0.5 10^3/uL 10^3/ uL (0.0-0.8) Baso # (Auto) 0.1 10^3/uL 10^3/ uL (0.0-0.1) Nucleated RBC % (a uto) 0 % % Nucleated RBCs # 0.0 /100WBC /100W BC Sodium 135 mmol/L L mmol /L (136-145) Potassium 3.9 mmol/L mmol/L (3.5-5.1) Chloride 95 mmol/L L mmol/ L (98-107) Carbon Dioxide 26 mmol/L mmol/L (22-29) Anion Gap 17.9 (5-19) BUN 19 mg/dL mg/dL (8-23) Creatinine 0.8 mg/dL mg/dL (0.5-0.9) GFR Calculation 70.9 mL/min L mL/ min (90-130) Glucose 125 mg/dL H mg/dL (65-115) Calculated Osmolal ity 284 mOsm/kg L mOs m/kg (285-295) Lactic Acid 1.4 mmol/L mmol/L (0.5-2.2) Calcium 8.0 mg/dL L mg/dL (8.5-10.5) Total Bilirubin 0.2 mg/dL mg/dL (0.15-1.2) AST 17 U/L U/L (0-32) ALT 10 U/L U/L (0-33) Alkaline Phosphata se 19 IU/L L IU/L (35-105) C-Reactive Protein 61.4 mg/L H mg/L (0.0-4.9) Total Protein 6.1 g/dL L g/dL (6.6-8.7) Albumin 2.6 g/dL L g/dL (3.5-5.2) Globulin 3.5 g/dL g/dL (1.3-4.6) Procalcitonin 0.14 ng/mL ng/mL (0-0.5) Discharge Plan Discharge Patient Disposition: Admitted As Inpatient Admit Provider: Yane Arceo Clinical Impression: Sepsis Qualifiers: Sepsis type: sepsis due to unspecified organism Sepsis acute organ dysfunction status: with acute organ dysfunction Severe sepsis acute organ dysfunction type: acute respiratory failure Acute respiratory failure type: with hypoxia Pneumonia Qualifiers: Pneumonia type: due to unspecified organism Laterality: bilateral Lung location: unspecified part of lung Qualified Code(s): J18.9 - Pneumonia, unspecified organism Condition: Stable Coding Level of Care Code ED Director [facility] for [facility] Fwd Exam Detailed Documented by User: Yane Arceo MD 04/22/21 00:05 HPI - Fever General: Chief Complaint: Fever Stated Complaint: fever Time Seen by Provider: 04/21/21 20:59 PFSH ED PFSH: Medical History (Updated 04/22/21 @ 00:54 by Fabricio Valdovinos DO) Adult BMI 40.0-44.9 kg/sq m Anemia Chronic anemia Chronic antibiotic suppression Has been taking nitrofurantoin for last 6 months as per the Chronic anticoagulation Coumadin 2 and 3mg daily depending on INR Chronic kidney disease, stage II (mild) CVA (cerebral vascular accident) Diastolic CHF Dyslipidemia Elevated hemidiaphragm Fracture of distal end of femur Fracture of lateral malleolus of left fibula Hypertension Left-sided weakness Lymphedema Moderate pulmonary arterial systolic hypertension Presence of IVC filter Supracondylar fracture of left femur UTI (urinary tract infection) Venous stasis dermatitis Surgical History H/O shoulder surgery History of hip surgery History of hysterectomy S/P cholecystectomy Family History Other CAD (coronary artery disease) Hypertension Stroke Social History Alcohol intake: never Household members: spouse Housing: House Course Vital Signs: Vital signs: Vital Signs Temperature 99.6 F 04/22/21 00:46 Pulse Rate 85 04/22/21 00:01 Respiratory Rate 23 H 04/22/21 00:46 Blood Pressure 137/71 04/22/21 00:46 Pulse Oximetry 94 04/22/21 00:46 MDM - Fever Lab Data: Labs: Lab Results 04/21/21 04/21/21 04/21/21 21:45 21:45 21:45 WBC 15.6 10^3/uL H 10 ^3/uL (4.0-10.0) RBC 3.06 10^6/uL L 10 ^6/uL (4.1-5.3) Hgb 7.8 g/dL L g/dL (11.5-15.3) Hct 26.2 % L % (37.0-47.0) MCV 85.6 fl fl (81-99) MCH 25.5 pg L pg (28.0-34.0) MCHC 29.8 g/dL L g/dL (30.0-36.0) RDW 16.8 % H % (12.1-15.1) Plt Count 512 10^3/cmm H 10 ^3/cmm (130-400) MPV 9.2 fL fL (7.4-10.4) Neut % (Auto) 72.8 % % Lymph % (Auto) 11.8 % % Island % (Auto) 9.0 % % Eos % (Auto) 2.9 % % Baso % (Auto) 0.4 % % Neut # (Auto) 11.37 10^3/uL H 1 0^3/uL (1.8-7.7) Lymph # (Auto) 1.8 10^3/uL 10^3/ uL (0.8-4.8) Island # (Auto) 1.4 10^3/uL H 10^ 3/uL (0.2-0.9) Eos # (Auto) 0.5 10^3/uL 10^3/ uL (0.0-0.8) Baso # (Auto) 0.1 10^3/uL 10^3/ uL (0.0-0.1) Nucleated RBC % (a uto) 0 % % Nucleated RBCs # 0.0 /100WBC /100W BC Sodium 135 mmol/L L mmol /L (136-145) Potassium 3.9 mmol/L mmol/L (3.5-5.1) Chloride 95 mmol/L L mmol/ L (98-107) Carbon Dioxide 26 mmol/L mmol/L (22-29) Anion Gap 17.9 (5-19) BUN 19 mg/dL mg/dL (8-23) Creatinine 0.8 mg/dL mg/dL (0.5-0.9) GFR Calculation 70.9 mL/min L mL/ min (90-130) Glucose 125 mg/dL H mg/dL (65-115) Calculated Osmolal ity 284 mOsm/kg L mOs m/kg (285-295) Lactic Acid 1.4 mmol/L mmol/L (0.5-2.2) Calcium 8.0 mg/dL L mg/dL (8.5-10.5) Total Bilirubin 0.2 mg/dL mg/dL (0.15-1.2) AST 17 U/L U/L (0-32) ALT 10 U/L U/L (0-33) Alkaline Phosphata se 19 IU/L L IU/L (35-105) C-Reactive Protein 61.4 mg/L H mg/L (0.0-4.9) Total Protein 6.1 g/dL L g/dL (6.6-8.7) Albumin 2.6 g/dL L g/dL (3.5-5.2) Globulin 3.5 g/dL g/dL (1.3-4.6) Procalcitonin 0.14 ng/mL ng/mL (0-0.5) Discharge Plan Discharge Patient Disposition: Admitted As Inpatient Admit Provider: Yane Arceo Clinical Impression: Sepsis Qualifiers: Sepsis type: sepsis due to unspecified organism Sepsis acute organ dysfunction status: with acute organ dysfunction Severe sepsis acute organ dysfunction type: acute respiratory failure Acute respiratory failure type: with hypoxia Pneumonia Qualifiers: Pneumonia type: due to unspecified organism Laterality: bilateral Lung location: unspecified part of lung Qualified Code(s): J18.9 - Pneumonia, unspecified organism Condition: Stable Coding Level of Care Code ED Director [facility] Nursing for [facility] Fwd Exam Detailed
[2021-04-21 21:57] LABS: Basophils # 0.1 10^3/uL (0.0-0.1); Basophils % 0.4 %; Eosinophils # 0.5 10^3/uL (0.0-0.8); Eosinophils % 2.9 %; Hematocrit 26.2 % (37.0-47.0); Hemoglobin 7.8 g/dL (11.5-15.3); Lymphocytes # 1.8 10^3/uL (0.8-4.8); Lymphocytes % 11.8 %; Mean Corpuscular HGB Conc 29.8 g/dL (30.0-36.0); Mean Corpuscular Hemoglobin 25.5 pg (28.0-34.0); Mean Corpuscular Volume 85.6 fl (81-99); Mean Platelet Volume 9.2 fL (7.4-10.4); Monocytes # 1.4 10^3/uL (0.2-0.9); Neutrophils # 11.37 10^3/uL (1.8-7.7); Neutrophils % 72.8 %; Nucleated Red Blood Cells % 0 %; Platelet Count 512 10^3/cmm (130-400); Red Blood Count 3.06 10^6/uL (4.1-5.3); Red Cell Distribution Width 16.8 % (12.1-15.1); White Blood Count 15.6 10^3/uL (4.0-10.0)
[2021-04-21 22:01] VITALS: BP 134/53; PULSE 83; O2SAT 92
[2021-04-21] MEDS: piperacillin-tazobactam 4.5 GM in sodium chloride 0.9% (plus) 50 ML IV (22:02)
[2021-04-21 22:14] LABS: Alanine Aminotransferase 10 U/L (0-33); Albumin Level 2.6 g/dL (3.5-5.2); Alkaline Phosphatase 19 IU/L (35-105); Anion Gap 17.9 (5-19); Aspartate Amino Transferase 17 U/L (0-32); Blood Urea Nitrogen 19 mg/dL (8-23); C Reactive Protein 61.4 mg/L (0.0-4.9); Carbon Dioxide 26 mmol/L (22-29); Chloride 95 mmol/L (98-107); Globulin 3.5 g/dL (1.3-4.6); Glomerular Filtration Rate 70.9 mL/min (90-130); Glucose 125 mg/dL (65-115); Osmolality Calculated 284 mOsm/kg (285-295); Potassium 3.9 mmol/L (3.5-5.1); Sodium 135 mmol/L (136-145); Total Bilirubin 0.2 mg/dL (0.15-1.2); Total Protein 6.1 g/dL (6.6-8.7)
[2021-04-21 22:15] LABS: Lactic Sepsis W/Reflex 1.4 mmol/L (0.5-2.2)
[2021-04-21 22:21] LABS: Procalcitonin 0.14 ng/mL (0-0.5)
[2021-04-21 22:32] VITALS: BP 164/78; PULSE 86; RESP 22; O2SAT 94
[2021-04-21] MEDS: guaiFENesin-codeine UDC 10 mL PO (22:34)
[2021-04-21 23:19] VITALS: BP 143/94; PULSE 90; RESP 21; O2SAT 96
[2021-04-22] VITALS (9 sets, daily range): BP systolic 126–164; BP diastolic 71–88; PULSE 63–102; RESP 17–28; TEMP 36.7–37.6; O2SAT 90–95
[2021-04-22 01:06] LABS: SARS Covid-2 Antigen Negative (Negative)
[2021-04-22 01:13] LABS: Add Urine Microscopic? YES; Bilirubin Urine Neg (Negative); Blood Urine 2+ (Negative); Glucose Urine UA Norm (Normal); Ketones Urine Negative (Negative); Leukocyte Esterase Urine Negative (Negative); Nitrate Urine Negative (Negative); Protein Urine Trace (Negative); Specific Gravity, Urine 1.025 (1.005-1.030); Urine Color Yellow (Yellow); Urobilinogen Urine Norm (Negative); pH Urine 5 (5-7)
[2021-04-22 01:14] LABS: Add Urine Culture? No; Amorphous Sediment Urine 3+ /hpf; Bacteria Urine TRACE /hpf; RBC Urine 0-4 /hpf (0-2); WBC Urine 0-4 /hpf (0-5)
--- NOTE | 2021-04-22 02:19 | PM.HP ---
Providers/Chief Complaint Admitting Physician: Yane Arceo Primary Care Provider: Efren Romano MD Chief Complaint: fever History of Present Illness 70-year-old lady with recent history of comminuted distal left femoral fracture 3 months ago treated with ORIF, longstanding ankle edema, with subsequent wound dehiscence, following with repeat surgery, recently with wound VAC treatment, dyphagia on pureed diet, chronic o2 dependent respiratory failure on 2L via NC who was recently discharge from the hospital on 04/17 on levaquin 750 mg PO daily x 14 days after admission for post op wound infection now returned to ER with fever. Patient denied any chest pain or respiratory distress. Wound appeared to be stable with wound vac in place. Laboratory workup however showed a WBC of 15.6, hemoglobin of 7.8, hematocrit of 26.2 and platelet count of 512. Sodium 135, potassium 3.9, chloride 95, bicarb 26, BUN 19 and creatinine of 0.8. CRP of 61.4. Procalcitonin of 0.14. Urinalysis negative for nitrites or leukocyte esterase. COVID-19 antigen negative, PCR pending.Chest x-ray showing mild perihilar opacities most consistent with mild bilateral perihilar pneumonia.In emergency room patient was given Ativan 1g Iv x1 and Zosyn 4.5 g IV x1 prior to admission. Review of Systems General: Reports: 10 or more systems reviewed and unremarkable except in HPI and below Medications/Allergies Home Medications Medication Instructions Recorded Confirmed Last Taken Type atorvastatin [Lipitor] 40 mg PO BEDTIME 03/21/20 04/16/21 04/06/21 History citalopram [Celexa] 20 mg PO DAILY 03/21/20 04/16/21 04/06/21 History ferrous sulfate [Iron (ferrous 325 mg PO DAILY 03/21/20 04/16/21 04/06/21 History sulfate)] metoprolol tartrate 12.5 mg PO BID 03/21/20 04/16/21 04/06/21 History oxybutynin chloride 5 mg PO BID 03/21/20 04/16/21 04/06/21 History ropinirole See Rx Instructions .ROUTE .COMPLEX 03/21/20 04/16/21 04/07/21 06:00 History tizanidine 4 mg PO TID PRN 03/21/20 04/16/21 04/06/21 History trazodone 100 mg PO BEDTIME 03/21/20 04/16/21 04/06/21 History amitriptyline 25 mg PO BEDTIME 12/30/20 04/16/21 04/06/21 History diazepam 5 mg PO BID 12/30/20 04/16/21 04/06/21 History acetaminophen 1,000 mg PO Q8H #0 tab 01/04/21 04/16/21 04/06/21 Rx furosemide [Lasix] 60 mg PO DAILY@0800 04/06/21 04/16/21 04/06/21 History nitrofurantoin macrocrystal 50 mg PO DAILY 04/06/21 04/16/21 04/06/21 History [Macrodantin] oxycodone 5 mg PO Q4H PRN 04/06/21 04/16/21 04/06/21 History woundvac #1 ea NS 04/06/21 04/16/21 Unknown Rx clindamycin HCl [Cleocin HCl] 300 mg PO Q6H 21 Days #84 cap 04/07/21 04/16/21 Unknown Rx Xanax 0.5 mg PO DAILY PRN 04/16/21 04/16/21 Unknown History amino acids-protein hydrolys 30 ea PO TID 04/16/21 04/22/21 Unknown History tramadol 50 mg PO Q8H PRN 04/16/21 04/16/21 Unknown History albuterol sulfate 2 inh INHALATION Q8H PRN #6.7 g 04/17/21 Unknown Rx benzonatate [Tessalon Perles] 100 mg PO TID PRN #30 cap 04/17/21 Unknown Rx enoxaparin [Lovenox] 40 mg SUBCUT Q24H #12 ml 04/17/21 Unknown Rx levofloxacin 750 mg PO DAILY 14 Days #14 tab 04/17/21 Unknown Rx Allergies Allergy/AdvReac Type Severity Reaction Status Date / Time fluconazole Allergy Unknown Verified 04/06/21 14:35 latex Allergy Unknown Verified 04/06/21 14:35 Sulfa (Sulfonamide Allergy Unknown Verified 04/06/21 14:35 Antibiotics) PFSH Acute PFSH: Medical History (Updated 04/22/21 @ 06:23 by Yane Arceo MD) Adult BMI 40.0-44.9 kg/sq m Anemia Chronic anemia Chronic antibiotic suppression Has been taking nitrofurantoin for last 6 months as per the Chronic anticoagulation Coumadin 2 and 3mg daily depending on INR Chronic kidney disease, stage II (mild) CVA (cerebral vascular accident) Diastolic CHF Dyslipidemia Elevated hemidiaphragm Fracture of distal end of femur Fracture of lateral malleolus of left fibula Hypertension Left-sided weakness Lymphedema Moderate pulmonary arterial systolic hypertension Presence of IVC filter Supracondylar fracture of left femur UTI (urinary tract infection) Venous stasis dermatitis Surgical History H/O shoulder surgery History of hip surgery History of hysterectomy S/P cholecystectomy Family History Other CAD (coronary artery disease) Hypertension Stroke Social History Alcohol intake: never Household members: spouse Housing: House Female Reproductive History: Date of last menstrual period: 12/31/20 Vitals/I&O/Wt Last Vital Signs Temp 98.3 F 04/22/21 04:00 Pulse 63 04/22/21 04:00 Resp 28 H 04/22/21 04:00 BP 152/75 04/22/21 04:00 Pulse Ox 95 04/22/21 04:00 04/21/21 04/21/21 04/22/21 14:59 22:59 06:59 Intake Total 50 / 50 Output Total / Balance 49 / 49 Weight last 48 hrs Weight 89.04 kg Weight 78.925 kg Physical Exam Narrative: EXAM NARRATIVE: General : Drowsy however arousable HEENT: Grossly Unremarkable CVS: RRR Chest: Non-labored respiration on 2L of o2 via NC Abd: Soft, NT,ND Ext; Bilateral LE edema with left LE wound vac in place w/o surrounding erythema Data : 04/21/21 21:45 04/21/21 21:45 Micro: Microbiology 04/21/21 22:15 Blood Culture - Preliminary Blood SPECIMEN COLLECTED 04/21/21 21:45 Blood Culture - Preliminary Blood SPECIMEN COLLECTED A&P Assessment and plan (1) Pneumonia: Noted temp of 102 prior to arrival Chest x-ray - bilateral pneumonia - appears to be similar to prior chest xray Possible aspiration Zosyn 4.5g IV x 1 in Er - continue 3.375g IV q6hr Blood culture x 2 obtained in Er Procalcitonin - negative COVID-19 Ag negative - PCR sent - pending Supplemental o2 as needed. Status: Acute Qualifiers: Laterality: bilateral Lung location: unspecified part of lung Pneumonia type: due to unspecified organism Qualified Code(s): J18.9 - Pneumonia, unspecified organism (2) Wound of left lower extremity: Wound care consult Appears stable Continue Wound Vac May consider orthopedic surgery consult Status: Acute (3) Dysphagia: Aspiration precautions Dysphagia 1 diet - Pureed ST eval Status: Acute (4) DVT prophylaxis: Heparin 5000 units Q8hr Status: Acute Additional A&P Information Verify home meds and resume Attestations Medical Necessity Statement*: Anticipate over2 midnights stay in hospital for evaluation treatment Time Spent in Patient Care: Greater than 35 minutes (>than 50% of time spent in counselling and/or direct pt care on unit). 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
[2021-04-22] MEDS: piperacillin-tazobactam 3.375 GM in sodium chloride 0.9% (plus) 50 ML IV ×3 (06:22→23:09)
[2021-04-22] MEDS: heparin 5,000 unit/mL INJ 1 mL 5000 UNIT SUBCUT ×2 (06:22→15:46)
[2021-04-22] MEDS: metoprolol tartrate 25 mg Tablet 12.5 MG PO (17:51)
--- NOTE | 2021-04-22 18:09 | PC.NURSE ---
was notified that Dr. Wagoner approved him to visit patient.
--- NOTE | 2021-04-22 20:35 | PM.PN ---
Subjective Subjective: Interval history: Patient was seen and examined this morning, she was complaining of not able to see her , overnight vitals and labs have been reviewed. No acute events, continues to saturate well on minimal supplemental oxygen. Covid PCR pending. Medications: Reviewed: Yes Vitals/I&O/Wt Last Vital Signs Temp 98.2 F 04/22/21 15:56 Pulse 81 04/22/21 15:56 Resp 18 04/22/21 15:56 BP 137/71 04/22/21 15:56 Pulse Ox 94 04/22/21 15:56 04/22/21 04/22/21 04/22/21 06:59 14:59 22:59 Intake Total 50 / 50 650 / 650 50 / 700 Output Total Balance 49 / 49 650 / 650 50 / 700 Weight last 48 hrs Weight 89.04 kg Weight 78.925 kg Physical Exam Narrative: EXAM NARRATIVE: Alert awake and oriented HENMT: COMMON NORMALS: normocephalic and atraumatic HEAD & SCALP: normocephalic and atraumatic Resp: COMMON NORMALS: clear to auscultation bilaterally EFFORT & INSPECTION: Yes symmetric chest movement AUSCULTATION: clear to auscultation bilaterally Cardio: COMMON NORMALS: regular rate, regular rhythm, S1 normal heart sound present, S2 normal heart sound present, No gallops present (Cardio), No murmurs present (Cardio), No rub (Cardio) and Peripheral pulses 2+ throughout RATE: regular rate RHYTHM: regular rhythm HEART SOUNDS: S1 normal heart sound present and S2 normal heart sound present PERIPHERAL PULSES: Peripheral pulses 2+ throughout GI: COMMON NORMALS: Normal to inspection, nondistended, normoactive bowel sounds present, Soft to palpation, non-tender, No hepatosplenomegaly present and no masses AUSCULTATION: Yes normoactive bowel sounds PALPATION: Yes Soft to palpation and Yes No hepatosplenomegaly present RECTAL EXAM: deferred Extremity: NARRATIVE EXTREMITY EXAM: Bilateral LE edema with left LE wound vac in place w/o surrounding erythema Data : 04/21/21 21:45 04/21/21 21:45 Micro: Microbiology 04/21/21 22:15 Blood Culture - Preliminary Blood SPECIMEN COLLECTED 04/21/21 21:45 Blood Culture - Preliminary Blood SPECIMEN COLLECTED A&P Assessment and plan (1) Pneumonia: Noted temp of 102 prior to arrival Chest x-ray - bilateral pneumonia - appears to be similar to prior chest xray Possible aspiration Zosyn 4.5g IV x 1 in Er - continue 3.375g IV q6hr Blood culture x 2 obtained in Er Procalcitonin - negative COVID-19 Ag negative - PCR sent - pending Supplemental o2 as needed. Status: Acute Qualifiers: Laterality: bilateral Lung location: unspecified part of lung Pneumonia type: due to unspecified organism Qualified Code(s): J18.9 - Pneumonia, unspecified organism (2) Wound of left lower extremity: Wound care consult Appears stable Continue Wound Vac May consider orthopedic surgery consult Status: Acute (3) Dysphagia: Aspiration precautions Dysphagia 1 diet - Pureed ST eval Status: Acute (4) DVT prophylaxis: Heparin 5000 units Q8hr Status: Acute Additional A&P Information Verify home meds and resume Attestations Medical Necessity Statement*: Patient is to be in hospital for management of pneumonia Coding Level of Care Code 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
[2021-04-23] VITALS (7 sets, daily range): BP systolic 116–173; BP diastolic 72–82; PULSE 68–97; RESP 15–22; TEMP 36.8–37.1; O2SAT 84–96
--- NOTE | 2021-04-23 00:03 | PC.NURSE ---
refuses to wear O2
--- NOTE | 2021-04-23 02:31 | PC.NURSE ---
Patient refused night meds and 2300 dose heparin but did allow nurse to admin her zosyn. Patient was educated on the importance of taking heparin and the increased risk of blood clots. Patient stated I don't care just leave me alone I'm supposed to go home . Patient was again informed about the increased chance of blood clot and the importance of heparin. Patient stated Don't you come near me . When asked about receiving her zosyn the patient was agreeable with this after nurse informed patient about the antibiotic being given through her existing iv access.
--- NOTE | 2021-04-23 04:31 | PC.NURSE ---
refuses to let me check and change her
[2021-04-23 06:01] LABS: Basophils # 0.1 10^3/uL (0.0-0.1); Basophils % 0.9 %; Eosinophils # 0.5 10^3/uL (0.0-0.8); Eosinophils % 4.3 %; Hematocrit 26.3 % (37.0-47.0); Hemoglobin 7.7 g/dL (11.5-15.3); Lymphocytes % 16.5 %; Mean Corpuscular HGB Conc 29.3 g/dL (30.0-36.0); Mean Corpuscular Hemoglobin 24.7 pg (28.0-34.0); Mean Corpuscular Volume 84.3 fl (81-99); Monocytes # 0.9 10^3/uL (0.2-0.9); Monocytes % 7.4 %; Neutrophils # 8.43 10^3/uL (1.8-7.7); Neutrophils % 68.9 %; Nucleated Red Blood Cells % 0 %; Platelet Count 554 10^3/cmm (130-400); Red Blood Count 3.12 10^6/uL (4.1-5.3); White Blood Count 12.2 10^3/uL (4.0-10.0)
[2021-04-23 06:25] LABS: Alanine Aminotransferase 9 U/L (0-33); Albumin Level 2.1 g/dL (3.5-5.2); Alkaline Phosphatase 17 IU/L (35-105); Anion Gap 11.6 (5-19); Aspartate Amino Transferase 17 U/L (0-32); Blood Urea Nitrogen 12 mg/dL (8-23); Calcium 8.6 mg/dL (8.5-10.5); Carbon Dioxide 30 mmol/L (22-29); Chloride 101 mmol/L (98-107); Globulin 4.8 g/dL (1.3-4.6); Glucose 100 mg/dL (65-115); Osmolality Calculated 288 mOsm/kg (285-295); Potassium 3.6 mmol/L (3.5-5.1); Sodium 139 mmol/L (136-145); Total Bilirubin 0.4 mg/dL (0.15-1.2); Total Protein 6.9 g/dL (6.6-8.7)
[2021-04-23 06:26] LABS: Procalcitonin 0.11 ng/mL (0-0.5)
[2021-04-23] MEDS: piperacillin-tazobactam 3.375 GM in sodium chloride 0.9% (plus) 50 ML IV ×3 (06:30→22:10)
--- NOTE | 2021-04-23 06:44 | PC.NURSE ---
Patient refused morning dose of heparin. Patient educated about the increased risk of blood clots. Patient stated You are not giving me that belly shot . Patient was made aware of need of heparin.
--- NOTE | 2021-04-23 06:44 | PC.NURSE ---
wet through a brief and onto the pad
[2021-04-23] MEDS: metoprolol tartrate 25 mg Tablet 12.5 MG PO ×2 (07:46→16:40)
[2021-04-23] MEDS: citalopram 20 mg Tablet PO (07:46)
--- NOTE | 2021-04-23 13:11 | PC.PHAR ---
called [facility] to obtain medication list with no answer at [phone], [phone], [id number], [phone], [id number], [phone], [id number]. Left voicemail on [facility]. No return phone call, still no answer.
--- NOTE | 2021-04-23 13:38 | P.PN_ITS ---
Subjective Subjective: Interval history: Patient was seen and examined this morning, she wants to go home, continue to remain afebrile Continue to saturate well on 3 Ls oxygen.Has denied any worsening shortness of breath. Wound VAC in place. Medications: Reviewed: Yes Vitals/I&O/Wt Last Vital Signs Temp 98.5 F 04/23/21 12:51 Pulse 81 04/23/21 12:51 Resp 19 H 04/23/21 12:51 BP 168/78 04/23/21 12:51 Pulse Ox 90 04/23/21 12:51 04/22/21 04/23/21 04/23/21 22:59 06:59 14:59 Intake Total 50 / 700 50 / 750 410 / 410 Balance 50 / 700 50 / 750 410 / 410 Weight last 48 hrs Weight 89.04 kg Weight 89.04 kg Weight 78.925 kg Physical Exam Narrative: EXAM NARRATIVE: Alert awake and oriented HENMT: COMMON NORMALS: normocephalic and atraumatic HEAD & SCALP: normocephalic and atraumatic Resp: COMMON NORMALS: clear to auscultation bilaterally EFFORT & INSPECTION: Yes symmetric chest movement AUSCULTATION: clear to auscultation bilaterally Cardio: COMMON NORMALS: regular rate, regular rhythm, S1 normal heart sound present, S2 normal heart sound present, No gallops present (Cardio), No murmurs present (Cardio), No rub (Cardio) and Peripheral pulses 2+ throughout RATE: regular rate RHYTHM: regular rhythm HEART SOUNDS: S1 normal heart sound present and S2 normal heart sound present PERIPHERAL PULSES: Peripheral pulses 2+ throughout GI: COMMON NORMALS: Normal to inspection, nondistended, normoactive bowel sounds present, Soft to palpation, non-tender, No hepatosplenomegaly present and no masses AUSCULTATION: Yes normoactive bowel sounds PALPATION: Yes Soft to palpation and Yes No hepatosplenomegaly present RECTAL EXAM: deferred Extremity: NARRATIVE EXTREMITY EXAM: Bilateral LE edema with left LE wound vac in place w/o surrounding erythema Data : 04/23/21 05:44 04/23/21 05:44 Micro: Microbiology 04/21/21 22:15 Blood Culture - Preliminary Blood NEGATIVE TO DATE 04/21/21 21:45 Blood Culture - Preliminary Blood NEGATIVE TO DATE A&P Assessment and plan (1) Pneumonia: Pneumonia: Likely hospital-acquired pneumonia, cannot conclusively rule out aspiration pneumonia. T-max at [facility] was 102 Chest x-ray -bilateral infiltrates Blood culture : Procalcitonin - negative Urine Legionella antigen Bacterial antigen panel COVID-19 Ag negative - PCR : pending Zosyn 4.5g IV x 1 in Er - continue 3.375g IV q6hr DuoNebs Supplemental o2 as needed. Status: Acute Qualifiers: Laterality: bilateral Lung location: unspecified part of lung Pneumonia type: due to unspecified organism Qualified Code(s): J18.9 - Pneumonia, unspecified organism (2) Wound of left lower extremity: Wound care consult Appears stable Continue Wound Vac May consider orthopedic surgery consult Status: Acute (3) Dysphagia: Aspiration precautions Dysphagia 1 diet - Pureed ST eval Status: Acute (4) DVT prophylaxis: Heparin 5000 units Q8hr Status: Acute Additional A&P Information Verify home meds and resume Attestations Medical Necessity Statement*: Patient needs to be in the hospital for management of pneumonia. Coding Level of Care Code Acute Casualty Claim Adjuster for Martín Curiel Exam Expanded Problem Focused Diagnoses Pneumonia J18.9 Laterality: bilateral Lung location: unspecified part of lung Pneumonia type: due to unspecified organism Wound of left lower extremity S81.802A Dysphagia R13.10 DVT prophylaxis Z29.9
[2021-04-23] MEDS: heparin 5,000 unit/mL INJ 1 mL 5000 UNIT SUBCUT ×2 (15:32→22:09)
[2021-04-23] MEDS: atorvastatin 40 mg Tablet PO (20:20)
[2021-04-23] MEDS: trazodone 100 mg Tablet PO (20:20)
[2021-04-23 21:27] LABS: Quest SARS-CoV-2 RNA NOT DETECTED (NOT DETECTED)
[2021-04-24] VITALS (7 sets, daily range): BP systolic 146–203; BP diastolic 70–85; PULSE 72–94; RESP 16–18; TEMP 36.4–37.3; O2SAT 84–99
[2021-04-24] MEDS: piperacillin-tazobactam 3.375 GM in sodium chloride 0.9% (plus) 50 ML IV ×2 (06:12→18:34)
[2021-04-24] MEDS: heparin 5,000 unit/mL INJ 1 mL 5000 UNIT SUBCUT (06:13)
[2021-04-24 06:34] LABS: Basophils # 0.1 10^3/uL (0.0-0.1); Basophils % 0.9 %; Eosinophils # 0.7 10^3/uL (0.0-0.8); Eosinophils % 5.3 %; Hematocrit 27.7 % (37.0-47.0); Hemoglobin 8.4 g/dL (11.5-15.3); Lymphocytes # 2.6 10^3/uL (0.8-4.8); Lymphocytes % 18.2 %; Mean Corpuscular HGB Conc 30.3 g/dL (30.0-36.0); Mean Corpuscular Hemoglobin 25.3 pg (28.0-34.0); Mean Corpuscular Volume 83.4 fl (81-99); Mean Platelet Volume 8.9 fL (7.4-10.4); Neutrophils # 9.51 10^3/uL (1.8-7.7); Neutrophils % 67.4 %; Nucleated Red Blood Cells % 0 %; Platelet Count 638 10^3/cmm (130-400); Red Blood Count 3.32 10^6/uL (4.1-5.3); White Blood Count 14.1 10^3/uL (4.0-10.0)
[2021-04-24 06:55] LABS: Alanine Aminotransferase 9 U/L (0-33); Albumin Level 2.5 g/dL (3.5-5.2); Alkaline Phosphatase 16 IU/L (35-105); Anion Gap 12.9 (5-19); Aspartate Amino Transferase 17 U/L (0-32); Blood Urea Nitrogen 9 mg/dL (8-23); Calcium 8.5 mg/dL (8.5-10.5); Carbon Dioxide 29 mmol/L (22-29); Chloride 101 mmol/L (98-107); Glucose 99 mg/dL (65-115); Osmolality Calculated 287 mOsm/kg (285-295); Potassium 3.9 mmol/L (3.5-5.1); Sodium 139 mmol/L (136-145); Total Bilirubin 0.3 mg/dL (0.15-1.2); Total Protein 6.5 g/dL (6.6-8.7)
--- NOTE | 2021-04-24 07:00 | XRR_ITS ---
PROCEDURE INFORMATION: Exam: XR Chest Exam date and time: 04/24/2021 7:00 AM Age: 71 years old Clinical indication: Condition or disease; Lung condition and disease; Pneumonia; Additional info: Pna TECHNIQUE: Imaging protocol: XR of the chest. Views: 1 view. COMPARISON: CR (CHEST, ) 04/21/2021 9:54 PM FINDINGS: Tubes, catheters and devices: The patient has an inferior vena caval filter. Lungs: Bilateral central bronchial wall thickening compatible with inflammation/edema. New focal opacity in the retrocardiac left lower lobe demonstrating subtle air bronchogram formation compatible with pneumonia. Pleural spaces: No pleural effusion. No pneumothorax. Heart/Mediastinum: The cardiac silhouette is not enlarged. The mediastinal contours are normal. Vasculature: The aorta is atherosclerotic. Bones/joints: Prior left rotator cuff surgery with a humeral anchor present. Bilateral chronic rotator cuff tears. Multilevel disc degeneration in the thoracic spine. Organs: Prior cholecystectomy. XR/XR chest 1V portable [id number] IMPRESSION: 1. Left lower lobe pneumonia. 2. Bronchial inflammation/edema. Radiation Dose CTDIVOL = (mGy): DLP = (mGy-cm)
[2021-04-24] MEDS: metoprolol tartrate 25 mg Tablet 12.5 MG PO ×2 (08:23→18:52)
[2021-04-24] MEDS: citalopram 20 mg Tablet PO (08:23)
--- NOTE | 2021-04-24 10:19 | PC.CHAP ---
Pastoral Care Encounter/Spiritual Assessment Type of Contact [] Declined director prison visit [] Patient/Family/Request visit [] Outpatient visit [] Follow-up visit [] Physician referral [] Code/Alert [] Routine visit [] Staff referral [] Actively dying [] Patient sleeping [] Family support [] [] Out of room [] Palliative care [] [] Receiving care in room [] Pre-surgical visit [] Trauma [] Long length of stay [] ICU visit [] Other: Relational/Emotional Strength [] Patient feels connected with others/family/visitors/staff [] Distress [] Loneliness/isolation [] Abandonment Spirituality of Patient [] Person of Vera [] Attends Hindu of their [place] [] Believes in Prayer [] Reads Bible or Rastafari materials [] There are Spiritual issues to be addressed Investigator Welfare Interventions [] Prayer [] Active listening [] Non-anxious presence [] Spiritual/emotional support [] Crisis/trauma care [] Spiritual counseling [] Bereavement support [] Provided bereavement packet [] Provided Bible/devotional materials [] Provided toy/stuffed animal, coloring book to patient or family member [] Provided Communion [] Anointing/[place] [] Salvation [] Completed spiritual assessment [] Other: Impact on Illness or Injury [] Angry [] Fearful [] Anxious [] Often cries [] Exhaustion [] Unable to work [] Unable to attend yazidi [] Unable to walk/stand [] Unable to read [] Unable to drive [] Unable to eat/drink [] Unable to sleep [] Unable to be with family [] Patient intubated [] Other: Summary Time spent with patient
--- NOTE | 2021-04-24 14:21 | CTR_ITS ---
PROCEDURE INFORMATION: Exam: CTA Chest With Contrast Exam date and time: 04/24/2021 2:21 PM Age: 71 years old Clinical indication: Shortness of breath; Prior surgery; Surgery type: Gb, ivc filter, shoulder; Additional info: SOB TECHNIQUE: Imaging protocol: Computed tomographic angiography of the chest with contrast. Sagittal and coronal reformatted images were created and reviewed. 3D rendering (Not supervised by radiologist): MIP and/or 3D reconstructed images were created by the technologist. Radiation optimization: All CT scans at this facility use at least one of these dose optimization techniques: automated exposure control; mA and/or kV adjustment per patient size (includes targeted exams where dose is matched to clinical indication); or iterative reconstruction. Contrast material: OMNI 350; Contrast volume: 68 ml; Contrast route: INTRAVENOUS (IV); COMPARISON: CT angio chest w abd pel w con 04/15/2021 4:47 PM RADIATION DOSE METRICS: Total DLP (mGy-cm): 534.75 FINDINGS: Limitations: Respiratory motion artifact on multiple images that can limit evaluation. Pulmonary arteries: No filling defects in the pulmonary arteries to suggest pulmonary embolism. Aorta: Stable mild atherosclerotic changes in the visualized arteries. No evidence for aortic aneurysm or aortic dissection. Other arteries: Stable moderate atherosclerotic calcification in the coronary arteries. Veins: An IVC filter is partially visualized. Thyroid: Enlarged left thyroid lobe. Complex nodule with internal calcification in the left thyroid lobe measuring 3.1 x 1.9 cm (series 2, image 39). Findings are stable. Trachea: Tracheobronchial structures are patent. Lungs: No pulmonary parenchymal nodules or masses. Mosaic attenuation of the pulmonary parenchyma, consistent with air trapping from underlying small airways disease. Findings are stable. No focal consolidation. No pulmonary edema. Pleural spaces: No pneumothorax. No pleural effusion. Heart: Stable moderate enlargement of the heart. Esophagus: The esophagus is unremarkable. Mediastinal space: No mediastinal hematoma. No pneumomediastinum. Lymph nodes: No lymphadenopathy. Liver: The visualized liver is unremarkable. Gallbladder and bile ducts: No dilatation of the visualized bile ducts. Patient has had a previous cholecystectomy. Pancreas: The visualized pancreas is unremarkable. No pancreatic ductal dilatation. Spleen: The spleen is unremarkable. Bones/joints: Bones are diffusely osteopenic. Degenerative changes in the spine and shoulders. Soft tissues: No acute abnormality in the extrathoracic soft tissues. Other findings: . CT/CT angio chest PE protcl [id number] IMPRESSION: 1. No acute cardiopulmonary process. 2. No evidence for pulmonary embolism. 3. Mosaic attenuation of the pulmonary parenchyma, consistent with air trapping from underlying small airways disease. Findings are stable. 4. Stable left thyroid nodule. Follow-up non-emergent thyroid ultrasound is recommended. 5. Incidental/nonacute findings are listed in the report. COMMENTS: Consistent with the [employer]'s Incidental Findings Committee white paper (J Am Cheryl Radiol 2015): In patients aged 35 years and older with an incidental thyroid nodule equal to or greater than 1.[address], MRI or extrathyroidal US, further evaluation with dedicated thyroid US is recommended for patients with normal life expectancy and without comorbidities. For smaller nodules without suspicious features, no further evaluation or follow up is recommended. Radiation Dose CTDIVOL = (mGy): DLP = 534.75 (mGy-cm)
[2021-04-24] MEDS: iohexol 350 mg/mL 100 mL Btl IV (17:07)
--- NOTE | 2021-04-24 18:36 | PC.NURSE ---
PT REFUSED HEPARIN, WANTS NOT SHOTS IN HER ABD
--- NOTE | 2021-04-24 18:55 | PM.PN ---
Subjective Subjective: Interval history: Patient was seen this morning, is at bedside, she tells me that she is feeling better, still on 3-1/2 L, no chest pain, no palpitations, no nausea, no vomiting, her is [facility], as last time she was discharged too soon and she is back to the hospital, [facility], she is has a wound VAC in place, he is also worried that she is supposed to follow-up with Dr. Carey tomorrow, and she is here in the hospital Vitals/I&O/Wt Last Vital Signs Temp 97.6 F 04/24/21 16:00 Pulse 83 04/24/21 16:00 Resp 16 04/24/21 16:00 BP 157/72 04/24/21 16:00 Pulse Ox 93 04/24/21 16:00 04/24/21 04/24/21 04/24/21 06:59 14:59 22:59 Intake Total 50 / 830 370 / 370 240 / 610 Balance 50 / 830 370 / 370 240 / 610 Weight last 48 hrs Weight 83.098 kg Weight 89.04 kg Physical Exam Const: COMMON NORMALS: no acute distress ORIENTATION/CONSCIOUSNESS: Yes awake, Yes oriented to person, Yes oriented to place and Yes oriented to time OTHER: Flexion contracture left upper extremity Resp: COMMON NORMALS: normal respiratory effort, No retractions, No use of accessory muscles and clear to auscultation bilaterally AUSCULTATION: clear to auscultation bilaterally Cardio: COMMON NORMALS: regular rate, regular rhythm, S1 normal heart sound present and S2 normal heart sound present RATE: regular rate RHYTHM: regular rhythm HEART SOUNDS: S1 normal heart sound present and S2 normal heart sound present GI: COMMON NORMALS: Normal to inspection, nondistended, normoactive bowel sounds present, Soft to palpation and non-tender PALPATION: Yes Soft to palpation Extremity: NARRATIVE EXTREMITY EXAM: 1+ edema Neuro: SENSORIUM/ORIENTATION: Yes oriented to person, Yes oriented to place and Yes oriented to time Data : 04/24/21 06:15 04/24/21 06:15 A&P Assessment and plan (1) Pneumonia: Pneumonia: Likely hospital-acquired pneumonia, cannot conclusively rule out aspiration pneumonia. [facility] Chest x-ray -bilateral infiltrates Blood culture : Negative so far Procalcitonin - negative Urine Legionella antigen Bacterial antigen panel COVID-19 Ag negative - PCR : Negative Zosyn 4.5g IV x 1 in Er - continue 3.375g IV q6hr Will obtain CT angiogram of the chest given immobility after surgery, bilateral extremity ultrasound DuoNebs Supplemental o2 as needed. Status: Acute Qualifiers: Laterality: bilateral Lung location: unspecified part of lung Pneumonia type: due to unspecified organism Qualified Code(s): J18.9 - Pneumonia, unspecified organism (2) Wound of left lower extremity: Wound care consult Appears stable Continue Wound Vac We will discuss with Dr. Degroot tomorrow Status: Acute (3) Dysphagia: Aspiration precautions Dysphagia 1 diet - Pureed ST eval Status: Acute (4) DVT prophylaxis: Heparin 5000 units Q8hr Status: Acute Additional A&P Information Acute on chronic anemia, hemoglobin stable at 8.4, on last hospitalization received 1 unit PRBC History of diastolic CHF, echocardiogram 2020 showed an EF of 70%, RA History of chronic anticoagulation, IVC filter placement, History of communicating distal left femoral fracture treated with open reduction internal fixation with wound dehiscence, repeat surgery, with, on clindamycin, cultures remain negative Attestations Medical Necessity Statement*: Patient requires hospitalization for pneumonia Coding Level of Care Code Acute Digital Court Reporter for Martín Curiel Diagnoses Pneumonia J18.9 Laterality: bilateral Lung location: unspecified part of lung Pneumonia type: due to unspecified organism Wound of left lower extremity S81.802A Dysphagia R13.10 DVT prophylaxis Z29.9
[2021-04-24] MEDS: trazodone 100 mg Tablet PO (20:25)
[2021-04-24] MEDS: atorvastatin 40 mg Tablet PO (20:25)
--- NOTE | 2021-04-24 21:43 | PC.NURSE ---
refuses to wear O2
[2021-04-25] VITALS (7 sets, daily range): BP systolic 121–162; BP diastolic 67–82; PULSE 74–91; RESP 17–19; TEMP 36.4–37.7; O2SAT 89–97
--- NOTE | 2021-04-25 04:20 | PC.NURSE ---
IV found out of patients arm, patient then started yelling at this nurse that she did not want to be stuck again with a needle. Patient also states she does not want the shot in her stomach (heparin). This nurse tried to explain to patient the importance of having an IV so we can give the IV antibiotics she needs and patient told this nurse to go to [facility] . She also keeps taking her oxygen tubing out of her nose when asked why she is doing this she stated because I don't want it !
--- NOTE | 2021-04-25 05:00 | USCV_ITS ---
Vince Doris Age: 71 Gender: F : 1950 Exam Date: 04/25/2021 09:24 Ordering Phys: Carson Tony MD Technologist: MATIAS [place] [facility] [place]: DVT HISTORY: Lower extremity swelling. PROCEDURES: Venous duplex imaging was performed in only the right lower extremity. The following venous structures were evaluated: common femoral vein, profunda vein, proximal portion of the greater saphenous vein, superficial femoral vein, and the popliteal vein. In addition the peroneal trunk was evaluated. FINDINGS: Pt refused remainder of exam due to pain. The veins imaged in the right leg appear free of thrombus at this time. CONCLUSIONS No evidence of right lower extremity DVT. Only the peroneal vein in the calf was evaluated. Patient refused further imaging. Lj Lipscomb MD (Electronically Signed) Final Date: 25 April 2021 16:30 S
[2021-04-25 06:06] LABS: Basophils # 0.1 10^3/uL (0.0-0.1); Basophils % 1.1 %; Eosinophils # 0.7 10^3/uL (0.0-0.8); Eosinophils % 5.4 %; Hematocrit 31.3 % (37.0-47.0); Lymphocytes # 2.3 10^3/uL (0.8-4.8); Lymphocytes % 18.8 %; Mean Corpuscular HGB Conc 28.8 g/dL (30.0-36.0); Mean Corpuscular Hemoglobin 25.1 pg (28.0-34.0); Mean Corpuscular Volume 87.4 fl (81-99); Mean Platelet Volume 9.3 fL (7.4-10.4); Monocytes % 7.9 %; Neutrophils # 8.04 10^3/uL (1.8-7.7); Neutrophils % 65.3 %; Nucleated Red Blood Cells % 0 %; Platelet Count 631 10^3/cmm (130-400); Red Blood Count 3.58 10^6/uL (4.1-5.3); Red Cell Distribution Width 17.2 % (12.1-15.1); White Blood Count 12.3 10^3/uL (4.0-10.0)
[2021-04-25 06:39] LABS: NT Pro B Type Natriuretic Pept 1664 pg/mL (0-125)
[2021-04-25 06:50] LABS: Alanine Aminotransferase 8 U/L (0-33); Albumin Level 2.7 g/dL (3.5-5.2); Alkaline Phosphatase 16 IU/L (35-105); Anion Gap 17.1 (5-19); Aspartate Amino Transferase 13 U/L (0-32); Blood Urea Nitrogen 9 mg/dL (8-23); C Reactive Protein 24.5 mg/L (0.0-4.9); Calcium 8.2 mg/dL (8.5-10.5); Carbon Dioxide 23 mmol/L (22-29); Chloride 103 mmol/L (98-107); Creatine Phosphokinase 19 U/L (26-192); Globulin 3.7 g/dL (1.3-4.6); Glucose 100 mg/dL (65-115); Magnesium 1.9 mg/dL (1.7-2.3); Osmolality Calculated 287 mOsm/kg (285-295); Phosphorus 3.5 mg/dL (2.5-4.5); Potassium 4.1 mmol/L (3.5-5.1); Sodium 139 mmol/L (136-145); Total Bilirubin 0.3 mg/dL (0.15-1.2); Total Protein 6.4 g/dL (6.6-8.7)
[2021-04-25] MEDS: citalopram 20 mg Tablet PO (08:11)
[2021-04-25] MEDS: metoprolol tartrate 25 mg Tablet 12.5 MG PO ×2 (08:11→17:14)
--- NOTE | 2021-04-25 08:16 | PC.NURSE ---
AM ROUND PT CURRENTLY REFUSES IV STICKS OR ANY STICKS - WILL DISCUSS WITH LATER AND LET THIS NURSE KNOW
[2021-04-25] MEDS: FUROsemide 10 mg/mL SDV 4mL 40 MG IVP (09:53)
--- NOTE | 2021-04-25 12:12 | PC.SOCIAL ---
IMM update Pg. 2of IMM updated and reviewed with patient who verbalized understanding. Copy provided.
--- NOTE | 2021-04-25 12:30 | PM.PN ---
Subjective Subjective: Interval history: Patient was seen this morning, afebrile overnight, still on 3 L, she denies any shortness of breath, no fevers, no chills, no nausea, no vomiting, no chest pain, no palpitations, Vitals/I&O/Wt Last Vital Signs Temp 97.7 F 04/25/21 08:00 Pulse 77 04/25/21 08:58 Resp 17 04/25/21 08:58 BP 144/68 04/25/21 08:00 Pulse Ox 97 04/25/21 08:58 04/24/21 04/25/21 04/25/21 22:59 06:59 14:59 Intake Total 365 / 735 480 / 480 Balance 365 / 735 480 / 480 Weight last 48 hrs Weight 83.007 kg Weight 83.098 kg Physical Exam Const: COMMON NORMALS: no acute distress and patient oriented x3 OTHER: Flexion contracture left upper extremity Resp: COMMON NORMALS: normal respiratory effort, No retractions, No use of accessory muscles and clear to auscultation bilaterally AUSCULTATION: clear to auscultation bilaterally Cardio: COMMON NORMALS: regular rate, regular rhythm, S1 normal heart sound present and S2 normal heart sound present RATE: regular rate RHYTHM: regular rhythm HEART SOUNDS: S1 normal heart sound present and S2 normal heart sound present GI: COMMON NORMALS: Normal to inspection, nondistended, normoactive bowel sounds present and Soft to palpation PALPATION: Yes Soft to palpation Extremity: COMMON NORMALS: no pedal edema Neuro: COMMON NORMALS: patient oriented x3 Psych: COMMON NORMALS: mental status grossly normal Data : 04/25/21 05:06 04/25/21 05:06 A&P Assessment and plan (1) Pneumonia: Pneumonia: Likely hospital-acquired pneumonia, cannot conclusively rule out aspiration pneumonia. [facility] shelter was 102 Chest x-ray -bilateral infiltrates Blood culture : Negative so far Procalcitonin - negative Urine Legionella antigen Bacterial antigen panel COVID-19 Ag negative - PCR : Negative Zosyn 4.5g IV x 1 in Er - continue 3.375g IV q6hr CT angiogram negative for underlying pulmonary emboli, bilateral extremity ultrasound pending DuoNebs Supplemental o2 as needed. Looks fluid overloaded today, has pitting edema, 1 dose of Lasix today Status: Acute Qualifiers: Laterality: bilateral Lung location: unspecified part of lung Pneumonia type: due to unspecified organism Qualified Code(s): J18.9 - Pneumonia, unspecified organism (2) Wound of left lower extremity: Wound care consult Appears stable Continue Wound Vac Discussed with orthopedic service, continue current interventions follow-up next week Status: Acute (3) Dysphagia: Aspiration precautions Dysphagia 1 diet - Pureed ST eval Status: Acute (4) DVT prophylaxis: Heparin 5000 units Q8hr Status: Acute Additional A&P Information Acute on chronic anemia, hemoglobin stable at 9.0, on last hospitalization received 1 unit PRBC History of diastolic CHF, echocardiogram 2020 showed an EF of 70%, History of chronic anticoagulation, IVC filter placement, History of communicating distal left femoral fracture treated with open reduction internal fixation with wound dehiscence, repeat surgery, with, on clindamycin, cultures remain negative Attestations Medical Necessity Statement*: Patient requires hospitalization for aspiration and/or healthcare associated pneumonia Coding Level of Care Code Acute Insurance Adjustor for [facility] Diagnoses Pneumonia J18.9 Laterality: bilateral Lung location: unspecified part of lung Pneumonia type: due to unspecified organism Wound of left lower extremity S81.802A Dysphagia R13.10 DVT prophylaxis Z29.9
[2021-04-25] MEDS: piperacillin-tazobactam 3.375 GM in sodium chloride 0.9% (plus) 50 ML IV (14:48)
--- NOTE | 2021-04-25 15:32 | PC.NURSE ---
SHIFT SUMMARY PT HAS REMAINED UNCOOPERATIVE THROUGHOUT MOST OF SHIFT - REFUSES TO TURN - INCONTINENT OF BOWEL AND BLADDER - REFUSED IV STICK THEN ALLOWED IV STICK - PT PULLED OUT IV - 2ND IV PLACED PER THIS NURSE - PT HAS DENIED PAIN THROUGHOUT SHIFT - HAS BEEN AT SIDE AT TIMES AND ENCOURAGED PT TO ALLOW CARE PER DR/NURSE REQUEST
[2021-04-26] VITALS (7 sets, daily range): BP systolic 122–161; BP diastolic 66–91; PULSE 71–124; RESP 16–22; TEMP 36.6–37; O2SAT 91–97
[2021-04-26] MEDS: piperacillin-tazobactam 3.375 GM in sodium chloride 0.9% (plus) 50 ML IV ×3 (00:15→15:02)
[2021-04-26] MEDS: trazodone 100 mg Tablet PO ×2 (00:16→21:21)
[2021-04-26] MEDS: atorvastatin 40 mg Tablet PO ×2 (00:16→21:21)
[2021-04-26 06:34] LABS: Basophils # 0.1 10^3/uL (0.0-0.1); Basophils % 1.1 %; Eosinophils # 0.8 10^3/uL (0.0-0.8); Eosinophils % 7.3 %; Hematocrit 31.4 % (37.0-47.0); Hemoglobin 9.4 g/dL (11.5-15.3); Lymphocytes # 2.4 10^3/uL (0.8-4.8); Lymphocytes % 20.9 %; Mean Corpuscular HGB Conc 29.9 g/dL (30.0-36.0); Mean Corpuscular Hemoglobin 24.8 pg (28.0-34.0); Mean Corpuscular Volume 82.8 fl (81-99); Mean Platelet Volume 8.9 fL (7.4-10.4); Monocytes # 0.9 10^3/uL (0.2-0.9); Monocytes % 7.9 %; Neutrophils # 6.93 10^3/uL (1.8-7.7); Neutrophils % 60.6 %; Nucleated Red Blood Cells % 0 %; Platelet Count 643 10^3/cmm (130-400); Red Blood Count 3.79 10^6/uL (4.1-5.3); Red Cell Distribution Width 17.4 % (12.1-15.1); White Blood Count 11.4 10^3/uL (4.0-10.0)
[2021-04-26 06:59] LABS: NT Pro B Type Natriuretic Pept 736 pg/mL (0-125); Procalcitonin 0.11 ng/mL (0-0.5)
[2021-04-26 07:11] LABS: Alanine Aminotransferase 9 U/L (0-33); Albumin Level 2.7 g/dL (3.5-5.2); Alkaline Phosphatase 16 IU/L (35-105); Anion Gap 18.2 (5-19); Aspartate Amino Transferase 15 U/L (0-32); Blood Urea Nitrogen 12 mg/dL (8-23); C Reactive Protein 13.9 mg/L (0.0-4.9); Calcium 8.6 mg/dL (8.5-10.5); Carbon Dioxide 23 mmol/L (22-29); Chloride 102 mmol/L (98-107); Creatine Phosphokinase 15 U/L (26-192); Globulin 3.9 g/dL (1.3-4.6); Glucose 95 mg/dL (65-115); Magnesium 2.1 mg/dL (1.7-2.3); Osmolality Calculated 288 mOsm/kg (285-295); Phosphorus 4.8 mg/dL (2.5-4.5); Potassium 4.2 mmol/L (3.5-5.1); Sodium 139 mmol/L (136-145); Total Bilirubin 0.3 mg/dL (0.15-1.2); Total Protein 6.6 g/dL (6.6-8.7)
[2021-04-26] MEDS: metoprolol tartrate 25 mg Tablet 12.5 MG PO ×2 (09:19→17:02)
[2021-04-26] MEDS: citalopram 20 mg Tablet PO (09:19)
[2021-04-26] MEDS: FUROsemide 10 mg/mL SDV 4mL 40 MG IVP (11:07)
[2021-04-26] MEDS: heparin 5,000 unit/mL INJ 1 mL 5000 UNIT SUBCUT (13:57)
--- NOTE | 2021-04-26 16:33 | PM.PN ---
Subjective Subjective: Interval history: Patient was seen this morning, denies any fevers, chills, nausea, no vomiting, she is on 2 L, denies any chest pain, no palpitations, no shortness of breath Vitals/I&O/Wt Last Vital Signs Temp 98.6 F 04/26/21 16:00 Pulse 82 04/26/21 16:00 Resp 16 04/26/21 16:00 BP 161/91 04/26/21 16:00 Pulse Ox 91 04/26/21 16:00 04/26/21 04/26/21 04/26/21 06:59 14:59 22:59 Intake Total 50 / 940 530 / 530 Balance 50 / 940 530 / 530 Weight last 48 hrs Weight 83.007 kg Weight 83.007 kg Physical Exam Const: COMMON NORMALS: no acute distress and patient oriented x3 Resp: COMMON NORMALS: normal respiratory effort, No retractions, No use of accessory muscles and clear to auscultation bilaterally AUSCULTATION: clear to auscultation bilaterally Cardio: COMMON NORMALS: regular rate, regular rhythm, S1 normal heart sound present and S2 normal heart sound present RATE: regular rate RHYTHM: regular rhythm HEART SOUNDS: S1 normal heart sound present and S2 normal heart sound present GI: COMMON NORMALS: Normal to inspection, nondistended, normoactive bowel sounds present and Soft to palpation PALPATION: Yes Soft to palpation Extremity: COMMON NORMALS: no pedal edema Neuro: COMMON NORMALS: patient oriented x3 Psych: COMMON NORMALS: mental status grossly normal Data : 04/26/21 06:00 04/26/21 06:00 Micro: Microbiology 04/25/21 15:00 MRSA Culture - Final Nose 04/25/21 04:02 C.difficile Toxin B Gene (PCR) - Final Stool A&P Assessment and plan (1) Pneumonia: Pneumonia: Likely hospital-acquired pneumonia, cannot conclusively rule out aspiration pneumonia. T-max at [facility] was 102 Chest x-ray -bilateral infiltrates Blood culture : Negative so far Procalcitonin - negative Urine Legionella antigen Bacterial antigen panel COVID-19 Ag negative - PCR : Negative Zosyn 4.5g IV x 1 in Er - continue 3.375g IV q6hr CT angiogram negative for underlying pulmonary emboli, bilateral extremity ultrasound pending DuoNebs Supplemental o2 as needed. 1 dose of Lasix today Discussed with patient and about aspiration precautions, aspiration diet, if indeed she does have aspiration pneumonia, she has a high risk of recurrent pneumonias, recurrent sepsis, recurrent hospitalizations, discussed the possibility of long-term options including continued conservative interventions versus PEG tube Status: Acute Qualifiers: Laterality: bilateral Lung location: unspecified part of lung Pneumonia type: due to unspecified organism Qualified Code(s): J18.9 - Pneumonia, unspecified organism (2) Wound of left lower extremity: Wound care consult Appears stable Continue Wound Vac Discussed with orthopedic service, continue current interventions follow-up next week Status: Acute (3) Dysphagia: Aspiration precautions Dysphagia 1 diet - Pureed ST eval Status: Acute (4) DVT prophylaxis: Heparin 5000 units Q8hr Status: Acute Additional A&P Information Acute on chronic anemia, hemoglobin stable at 9.0, on last hospitalization received 1 unit PRBC History of diastolic CHF, echocardiogram 2020 showed an EF of 70%, History of chronic anticoagulation, IVC filter placement, History of communicating distal left femoral fracture treated with open reduction internal fixation with wound dehiscence, repeat surgery, with, on clindamycin, cultures remain negative Attestations Medical Necessity Statement*: Patient requires hospitalization for pneumonia Coding Level of Care Code Acute Housing Case Manager for [facility] Diagnoses Pneumonia J18.9 Laterality: bilateral Lung location: unspecified part of lung Pneumonia type: due to unspecified organism Wound of left lower extremity S81.802A Dysphagia R13.10 DVT prophylaxis Z29.9
[2021-04-27] VITALS: BP 186/78; PULSE 98; RESP 20; TEMP 37.4; O2SAT 93
--- NOTE | 2021-04-27 00:08 | PC.NURSE ---
i reported high reps 20 to nurse
[2021-04-27] MEDS: piperacillin-tazobactam 3.375 GM in sodium chloride 0.9% (plus) 50 ML IV ×2 (01:48→09:41)
[2021-04-27 07:09] VITALS: BP 128/84; PULSE 82; RESP 17; TEMP 36.6; O2SAT 96
[2021-04-27] MEDS: metoprolol tartrate 25 mg Tablet 12.5 MG PO ×2 (09:40→17:25)
[2021-04-27] MEDS: citalopram 20 mg Tablet PO (09:40)
[2021-04-27 09:48] LABS: Basophils # 0.1 10^3/uL (0.0-0.1); Basophils % 0.8 %; Eosinophils # 0.5 10^3/uL (0.0-0.8); Eosinophils % 3.2 %; Hematocrit 33.7 % (37.0-47.0); Hemoglobin 10.2 g/dL (11.5-15.3); Lymphocytes # 3.2 10^3/uL (0.8-4.8); Lymphocytes % 20.9 %; Mean Corpuscular HGB Conc 30.3 g/dL (30.0-36.0); Mean Corpuscular Hemoglobin 24.9 pg (28.0-34.0); Mean Corpuscular Volume 82.4 fl (81-99); Mean Platelet Volume 9.1 fL (7.4-10.4); Monocytes % 6.7 %; Neutrophils # 10.22 10^3/uL (1.8-7.7); Neutrophils % 66.7 %; Nucleated Red Blood Cells % 0 %; Platelet Count 690 10^3/cmm (130-400); Red Blood Count 4.09 10^6/uL (4.1-5.3); Red Cell Distribution Width 17.3 % (12.1-15.1); White Blood Count 15.3 10^3/uL (4.0-10.0)
[2021-04-27 10:21] LABS: Alanine Aminotransferase 9 U/L (0-33); Albumin Level 2.9 g/dL (3.5-5.2); Alkaline Phosphatase 18 IU/L (35-105); Anion Gap 17.7 (5-19); Aspartate Amino Transferase 16 U/L (0-32); Blood Urea Nitrogen 13 mg/dL (8-23); C Reactive Protein 11.6 mg/L (0.0-4.9); Calcium 8.9 mg/dL (8.5-10.5); Carbon Dioxide 24 mmol/L (22-29); Chloride 97 mmol/L (98-107); Globulin 5.1 g/dL (1.3-4.6); Glucose 138 mg/dL (65-115); Osmolality Calculated 282 mOsm/kg (285-295); Phosphorus 4.4 mg/dL (2.5-4.5); Potassium 3.7 mmol/L (3.5-5.1); Sodium 135 mmol/L (136-145); Total Bilirubin 0.4 mg/dL (0.15-1.2)
[2021-04-27 10:27] LABS: NT Pro B Type Natriuretic Pept 250 pg/mL (0-125)
[2021-04-27 10:37] LABS: Creatine Phosphokinase 21 U/L (26-192)
[2021-04-27 10:59] VITALS: PULSE 88; RESP 16; O2SAT 98
--- NOTE | 2021-04-27 11:16 | PC.SOCIAL ---
IMM Update pg 2 of IMM updated and reviewed w/ patient and . Copy provided.
[2021-04-27 11:38] VITALS: BP 142/83; PULSE 77; RESP 16; TEMP 36.8; O2SAT 94
--- NOTE | 2021-04-27 11:54 | P.DS_ITS ---
Discharge Providers Date of Admission: 04/22/21 00:29 Date of Discharge: April 27, 2021 Attending Provider at Admission: Yane Arceo Attending Provider at Discharge: Carson Tony MD Primary Care Provider: Efren Romano MD Diagnoses at Discharge Discharge Diagnosis (1) Pneumonia: Status: Acute Qualifiers: Laterality: bilateral Lung location: unspecified part of lung Pneumonia type: due to unspecified organism Qualified Code(s): J18.9 - Pneumonia, unspecified organism (2) Wound of left lower extremity: Status: Acute (3) Dysphagia: Status: Acute (4) DVT prophylaxis: Status: Acute Reason for Visit Reason for Visit: fever Hospital Course Hospital Course This is a 70-year-old female with recent history of comminuted distal left femoral fracture 3 months ago treated with ORIF, longstanding ankle edema, with subsequent wound dehiscence, following with repeat surgery, recently with wound VAC treatment, dyphagia on pureed diet, chronic o2 dependent respiratory failure on 2L via NC who was recently discharge from the hospital on 04/17 on levaquin 750 mg PO daily x 14 days after admission for post op wound infection now returned to ER with fever. Patient [place] [facility] for pneumonia, likely healthcare associated pneumonia, a component of aspiration pneumonia, was managed with broad-spectrum antibiotic therapy, inhaler therapy, oxygen therapy, CT angiogram was negative for pulmonary emboli, bilateral lower extremity ultrasound was negative for DVT, was diuresed, clinically improved. Discharged on Augmentin for 7 remaining days. Discharged on Augmentin for 7 remaining days, aspiration precautions, dysphagia diet. 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 Patient will follow-up with Dr. Degroot next week. Physical Exam Const: COMMON NORMALS: no acute distress and patient oriented x3 Resp: COMMON NORMALS: normal respiratory effort, No retractions, No use of a ccessory muscles and clear to auscultation bilaterally AUSCULTATION: clear to auscultation bilaterally Cardio: COMMON NORMALS: regular rate, regular rhythm, S1 normal heart sound present and S2 normal heart sound present RATE: regular rate RHYTHM: regular rhythm HEART SOUNDS: S1 normal heart sound present and S2 normal heart sound present GI: COMMON NORMALS: Normal to inspection, nondistended, normoactive bowel sounds present, Soft to palpation and non-tender PALPATION: Yes Soft to palpation Extremity: COMMON NORMALS: no pedal edema Neuro: COMMON NORMALS: patient oriented x3 Psych: COMMON NORMALS: mental status grossly normal Discharge Data Data Completed and Pending: Completed Studies During Hospitalization Category Date Time Status CT angio chest PE protcl [id number] Rout ine Cat Scan 04/24/21 14:21 Completed XR chest 1V ольга ble [id number] Routine Exams 04/24/21 07:00 Completed XR chest 1V ольга ble [id number] Stat Exams 04/21/21 21:14 [place] [id number] Routin e Ultrasound 04/25/21 05:00 Completed Pending at discharge Category Date Time Status Bacterial Antigen Routine Lab 04/23/21 19:52 Uncollected Complete Blood Co unt w/Auto AM LABS Lab 04/28/21 04:00 Ordered Complete Blood Co unt w/Auto AM LABS Lab 04/29/21 04:00 Ordered Comprehensive Met abolic Panel AM LA BS Lab 04/28/21 04:00 Ordered Comprehensive Met abolic Panel AM LA BS Lab 04/29/21 04:00 Ordered Legionella Antige n STAT Routine Lab 04/23/21 19:[address] at Lab 04/21/21 21:14 Uncollected Labs from last 24 hours 04/27/21 04/27/21 04/27/21 09:05 09:05 09:05 WBC 15.3 H RBC 4.09 L Hgb 10.2 L Hct 33.7 L MCV 82.4 MCH 24.9 L MCHC 30.3 RDW 17.3 H Plt Count 690 H MPV 9.1 Neut % (Auto) 66.7 Lymph % (Auto) 20.9 [place] % (Auto) 6.7 Eos % (Auto) 3.2 Baso % (Auto) 0.8 Neut # (Auto) 10.22 H Lymph # (Auto) 3.2 [place] # (Auto) 1.0 H Eos # (Auto) 0.5 Baso # (Auto) 0.1 Nucleated RBC % (a uto) 0 Nucleated RBCs # 0.0 Sodium 135 L Potassium 3.7 Chloride 97 L Carbon Dioxide 24 Anion Gap 17.7 BUN 13 Creatinine 0.7 GFR Calculation Not Reportable Glucose 138 H Calculated Osmolal ity 282 L Calcium 8.9 Phosphorus 4.4 Magnesium 2.0 Total Bilirubin 0.4 AST 16 ALT 9 Alkaline Phosphata se 18 L Creatine Kinase 21 L C-Reactive Protein 11.6 H NT-Pro-B Natriuret Pep 250 H Total Protein 8.0 Albumin 2.9 L Globulin 5.1 H Procalcitonin 0.10 Vitals: Last Vital Signs Temp 98.2 F 04/27/21 11:38 Pulse 77 04/27/21 11:38 Resp 16 04/27/21 11:38 BP 142/83 04/27/21 11:38 Pulse Ox 94 04/27/21 11:38 Discharge Plan Discharge Patient Disposition: Home Condition: Stable Prescriptions: New Augmentin 875-125 mg tablet 1 tab PO BID 7 Days Qty: 14 RF: 0 Continued (DME) woundvac See Rx Instructions .Route .MEDSUPPLY Qty: 1 RF: 0 atorvastatin [Lipitor] 40 mg tablet 40 mg PO BEDTIME RF: 0 ropinirole 1 mg tablet See Rx Instructions .ROUTE .COMPLEX RF: 0 tizanidine 4 mg tablet 4 mg PO TID PRN (Reason: Muscle Spasm) RF: 0 citalopram [Celexa] 20 mg tablet 20 mg PO DAILY RF: 0 trazodone 100 mg tablet 100 mg PO BEDTIME RF: 0 ferrous sulfate [Iron (ferrous sulfate)] 325 mg (65 mg iron) Tablet 325 mg PO DAILY RF: 0 oxybutynin chloride 5 mg tablet 5 mg PO BID RF: 0 metoprolol tartrate 25 mg tablet 12.5 mg PO BID RF: 0 furosemide [Lasix] 40 mg tablet 60 mg PO DAILY@0800 RF: 0 oxycodone 5 mg Tablet 5 mg PO Q4H PRN (Reason: Pain) RF: 0 amino acids-protein hydrolys Liquid 30 ea PO TID RF: 0 tramadol 50 mg Tablet 50 mg PO Q8H PRN (Reason: Pain) RF: 0 Xanax 0.5 mg Tablet 0.5 mg PO DAILY PRN (Reason: Anxiety) RF: 0 albuterol sulfate 90 mcg/actuation HFA aerosol inhaler 2 inh inhalation Q8H PRN (Reason: shortness of breath or wheezing) Qty: 6.7 RF: 0 Tessalon Perles 100 mg capsule 100 mg PO TID PRN (Reason: cough) Qty: 30 RF: 0 Lovenox 40 mg/0.4 mL syringe 40 mg SUBCUT Q24H Qty: 12 RF: 0 amitriptyline 25 mg tablet 25 mg PO BEDTIME RF: 0 diazepam 5 mg tablet 5 mg PO BID RF: 0 acetaminophen 500 mg Tablet 1,000 mg PO Q8H Qty: 0 RF: 0 Held nitrofurantoin macrocrystal [Macrodantin] 50 mg Capsule 50 mg PO DAILY RF: 0 Hold Instructions: Resume on 05/04/21. hold until antibiotics finishes Discontinued clindamycin HCl [Cleocin HCl] 300 mg capsule 300 mg PO Q6H 21 Days Qty: 84 RF: 0 levofloxacin 750 mg tablet 750 mg PO DAILY 14 Days Qty: 14 RF: 0 Discharge Orders: Discharge Order (Routine); Ordered 04/27/21 Ordered By: Carson Tony Referrals: [facility] [place] [Outside] Kathy Degroot MD [Physician] - 1 week Discharge Diet: Soft Mechanical Discharge Activity: Resume usual activity Patient Instructions: Pneumonitis (DC), Opioid Safety Activity Restrictions/Additional Instructions: -Patient has an increased aspiration risk -Aspiration precautions, monitored feeds, slow volume feeds, chin tuck, soft mechanical diet, have speech therapy monitor patient -Continue Augmentin -For wound VAC please follow-up with Dr. Degroot next week Discharge Attestations Time Spent in Discharge Care*: less than 30 min Status at Discharge: Cognitive status at discharge: mildly impaired cognition , Behavioral status at discharge: cooperative , Quality Metrics Clinical Quality Measures During this hospital stay, did patient experience: None Coding Level of Care Code Acute Chg FW DC note Diagnoses Pneumonia J18.9 Laterality: bilateral Lung location: unspecified part of lung Pneumonia type: due to unspecified organism Wound of left lower extremity S81.802A Dysphagia R13.10 DVT prophylaxis Z29.9
== END 2021-04-27 19:08 | disposition skilled nursing facility (03) | DRG 193 ==
LOC: ER 04-22 00:25 → MEDSURG 04-22 00:30
PROVIDERS: Internal Medicine; Admitting Provider Hospitalist; Emergency Provider Emergency Medicine; PCP Family Medicine; Visit Provider Family Medicine
DX: J18.9 Pneumonia, unspecified organism (principal); I50.33 Acute on chronic diastolic (congestive) heart failure; T81.30XA Disruption of wound, unspecified, initial encounter; I13.0 Hypertensive heart and chronic kidney disease with heart failure and stage 1 through stage 4 chronic kidney disease, or unspecified chronic kidney disease; Y95 Nosocomial condition; N18.2 Chronic kidney disease, stage 2 (mild); Z86.73 Personal history of transient ischemic attack (TIA), and cerebral infarction without residual deficits; E78.5 Hyperlipidemia, unspecified; Z95.828 Presence of other vascular implants and grafts; S72.92XD Unspecified fracture of left femur, subsequent encounter for closed fracture with routine healing; X58.XXXD Exposure to other specified factors, subsequent encounter; Z99.81 Dependence on supplemental oxygen; R13.10 Dysphagia, unspecified; D63.1 Anemia in chronic kidney disease; Z79.891 Long term (current) use of opiate analgesic; Z79.51 Long term (current) use of inhaled steroids
CPT/HCPCS: 36415; 71045; 71275; 80053; 81001; 82550; 83605; 83735; 83880; 84100; 84145; 85025; 86140; 87040; 87426; 87493; 87635; 87641; 92523; 92610; 93970; 93971; 94664; 96365; 96366; 96372; 97162; 99285; J1644; J1940; J2543; Q9967

== ENCOUNTER 2023-01-19 10:42 | Emergency (ER) | payer MEDICARE, MEDICAID, SELFPAY ==
[2023-01-19 10:43] VITALS: BP 153/76; PULSE 52; RESP 18; TEMP 37.1; O2SAT 92; BMI 25.8
[2023-01-19 10:56] VITALS: BP 154/78; PULSE 82; RESP 18; O2SAT 94
[2023-01-19 11:03] LABS: Basophils # 0.1 10^3/uL (0.0-0.1); Basophils % 1.1 %; Eosinophils # 0.4 10^3/uL (0.0-0.8); Eosinophils % 5.3 %; Hematocrit 41.7 % (36-47); Lymphocytes # 2.5 10^3/uL (0.8-4.8); Lymphocytes % 31.5 %; Mean Corpuscular HGB Conc 31.4 g/dL (30-55); Mean Corpuscular Hemoglobin 29.8 pg (27-33); Mean Platelet Volume 9.7 fL (7.4-10.4); Monocytes # 0.6 10^3/uL (0.2-0.9); Monocytes % 7.5 %; Neutrophils # 4.25 10^3/uL (1.8-7.7); Neutrophils % 54.1 %; Nucleated Red Blood Cells % 0 %; Platelet Count 278 10^3/cmm (157-399); Red Blood Count 4.39 10^6/uL (3.85-5.65); Red Cell Distribution Width 13.9 % (12.1-15.1); White Blood Count 7.87 10^3/uL (3.29-11.43)
--- NOTE | 2023-01-19 11:07 | CTR_ITS ---
PROCEDURE INFORMATION: Exam: CTA Left Lower Extremity With Contrast Exam date and time: 01/19/2023 1:11 PM Age: 72 years old Clinical indication: Other: L leg abscess; Prior surgery; Surgery date: 6+ months; Surgery type: RT hip lt leg TECHNIQUE: Imaging protocol: Computed tomographic angiography of the left lower extremity with contrast. Note that the field of view includes the right thigh and extends to the proximal to mid tibial level. 3D rendering (Not supervised by radiologist): MIP and/or 3D reconstructed images were created by the technologist. Radiation optimization: All CT scans at this facility use at least one of these dose optimization techniques: automated exposure control; mA and/or kV adjustment per patient size (includes targeted exams where dose is matched to clinical indication); or iterative reconstruction. Contrast material: OMNI 350; Contrast volume: 100 ml; Contrast route: INTRAVENOUS (IV); REPORTING DATA: Count of CT and Cardiac NM exams in prior 12 months: This patient has received 0 known CTs and 0 known cardiac nuclear medicine studies in the 12 months prior to the current study. COMPARISON: 1. CT lower leg LT w con [id number] 04/15/2021 4:[address] femur LT w con [id number] 04/15/2021 4:52 PM RADIATION DOSE METRICS: Total DLP (mGy-cm): 433.19 FINDINGS: Left femoral/popliteal arteries: Heavy calcifications without occlusion or significant stenosis. Left infrapopliteal arteries: Heavy calcifications without occlusion or significant stenosis of the imaged proximal vessels. Stomach and bowel: Prominent rectal stool ball. Visualized small and large bowel show no dilatation to suggest obstruction. Reproductive: The uterus is surgically absent. Bones/joints: Diffusely demineralized bones without new acute fracture. Stable right femur intramedullary nail with healed fracture deformity. Stable left distal femur plate and screw fixation with old fracture deformity distally. The displaced fracture fragments appears stable in alignment with small areas of bridging bone at the proximal and distal ends. Severe bilateral knee osteoarthritis. Additional degenerative changes at both hips, sacroiliac joints, and pubic symphysis. Soft tissues: Multiple scattered phleboliths and left lower extremity venous varicosities. Surgical scarring at the left thigh with more focal irregular nodular area measuring approximately 3.3 x 2.3 cm medially on axial image 332 of series 5 decreased in size from March 2021. Focal nodular area laterally with tiny air focus on axial image 386 of series 5 measures approximately 2.3 x 3.3 cm. Small right femoral hernia containing nondilated bowel loop and right anterior urinary bladder. CT/[place] [id number] IMPRESSION: 1. No occlusion or high-grade stenosis of the imaged iliofemoral arterial vessels. 2. Left thigh postsurgical changes with possible small fluid collections/abscesses at the medial and lateral thigh surgical sites as above. 3. Additional chronic and incidental findings as above.
--- NOTE | 2023-01-19 11:11 | W.ED.WOUNDLC ---
HPI - Wound/Laceration General: Chief Complaint: Wound/Laceration Stated Complaint: Leg incision Bleeding Time Seen by Provider: 01/19/23 10:49 Source: patient Mode of arrival: ambulatory History of Present Illness: 72-year-old female who presents to the emergency room with drainage from the left lateral thigh incision distally. She previously had a an injury to the femur she came home from the longterm about 15 months ago her is in the main caregiver. He was moving or using a Sergey lift today and it began to drain with serosanguineous fluid. Medially in the thigh she has a healing wound that has been present for some time. No fevers sweats or chills. Onset (ago): hour(s) Associated symptoms: Denies chills, fever(s), nausea or vomiting Review of Systems Const: Denies: fever(s), chills, body aches, change in appetite, fatigue or malaise ENMT: Denies: throat pain, ear or mastoid pain, nasal discharge or nasal congestion Card: Denies: chest pain, edema, dyspnea on exertion or orthopnea Resp: Denies: dyspnea, productive cough or non-productive cough GI: Denies: abdominal pain, nausea, vomiting, hematemesis, coffee ground emesis, diarrhea, constipation, bloating, hematochezia or melena : Denies: flank pain, difficulty voiding, dysuria, urinary frequency or urinary urgency Skin/Breast: Denies: rash or pruritus [facility] PFSH: Medical History Adult BMI 40.0-44.9 kg/sq m Anemia Chronic anemia Chronic antibiotic suppression Has been taking nitrofurantoin for last 6 months as per the Chronic anticoagulation Coumadin 2 and 3mg daily depending on INR Chronic kidney disease, stage II (mild) CVA (cerebral vascular accident) Diastolic CHF DVT prophylaxis Dyslipidemia Dysphagia Elevated hemidiaphragm Fracture of distal end of femur Fracture of lateral malleolus of left fibula Hypertension Left-sided weakness Lymphedema Moderate pulmonary arterial systolic hypertension Pneumonia Presence of IVC filter Sepsis Supracondylar fracture of left femur UTI (urinary tract infection) Venous stasis dermatitis Wound of left lower extremity Surgical History H/O shoulder surgery History of hip surgery History of hysterectomy S/P cholecystectomy Family History Other CAD (coronary artery disease) Hypertension Stroke Social History Smoking and tobacco status: never smoked Alcohol intake: never Substance/Drug Use: never Household members: spouse Housing: House Physical Exam Const: COMMON NORMALS: no acute distress GENERAL APPEARANCE: cooperative and comfortable ORIENTATION/CONSCIOUSNESS: Yes awake HENMT: COMMON NORMALS: normocephalic, atraumatic and hearing grossly normal bilaterally HEAD & SCALP: normocephalic and atraumatic Resp: COMMON NORMALS: normal respiratory effort, No retractions, No use of accessory muscles and clear to auscultation bilaterally AUSCULTATION: clear to auscultation bilaterally Cardio: COMMON NORMALS: regular rate, regular rhythm and No murmurs present (Cardio) RATE: regular rate RHYTHM: regular rhythm GI: COMMON NORMALS: Soft to palpation and No hepatosplenomegaly present AUSCULTATION: Yes normoactive bowel sounds PALPATION: Yes Soft to palpation, No Tenderness to palpation present (GI), No Guarding due to palpation present (GI) and Yes No hepatosplenomegaly present Extremity: COMMON NORMALS: normal to inspection, capillary refill normal, no clubbing, cyanosis or edema, no calf tenderness and no pedal edema Skin: OTHER: Distal thigh medial aspect there is a granulated area that is open approximately 1 cm diameter no active drainage lateral aspect there is a open wound with palpation can express serial sanguinous fluid nothing that is frankly purulent this was cultured. Course Vital Signs: Vital signs: Vital Signs Temperature 98.8 F 01/19/23 10:43 Pulse Rate 61 01/19/23 15:43 Respiratory Rate 18 01/19/23 15:43 Blood Pressure 146/74 01/19/23 12:53 Pulse Oximetry 95 01/19/23 15:43 Oxygen Delivery Me thod Room Air 01/19/23 15:42 MDM - Wound/Laceration Medical Decision Making CT shows some fluid collections White count normal started on doxycycline since she is allergic to sulfa. Wound care instructions given. Follow-up with primary care may need referral back to wound clinic and/or orthopedics. If has worsening symptoms change in drainage or fever return to the emergency room. Medical Records I reviewed the patient's medical records. Lab Data I reviewed the patient's lab results. 01/19/23 10:58 01/19/23 11:23 Radiology Impressions Lower Extremity CTA 01/19/23 11:07 IMPRESSION: 1. No occlusion or high-grade stenosis of the imaged iliofemoral arterial vessels. 2. Left thigh postsurgical changes with possible small fluid collections/abscesses at the medial and lateral thigh surgical sites as above. 3. Additional chronic and incidental findings as above. Laboratory Results WBC 7.87 10^3/uL (3.29-11.43) 01/19/23 10:58 RBC 4.39 10^6/uL (3.85-5.65) 01/19/23 10:58 Hgb 13.10 g/dL (11.27-16.99) 01/19/23 10:58 Hct 41.7 % (36-47) 01/19/23 10:58 MCV 95.0 fl (85-98) 01/19/23 10:58 MCH 29.8 pg (27-33) 01/19/23 10:58 MCHC 31.4 g/dL (30-55) 01/19/23 10:58 RDW 13.9 % (12.1-15.1) 01/19/23 10:58 Plt Count 278 10^3/cmm (157-399) 01/19/23 10:58 MPV 9.7 fL (7.4-10.4) 01/19/23 10:58 Neut % (Auto) 54.1 % 01/19/23 10:58 Lymph % (Auto) 31.5 % 01/19/23 10:58 [place] % (Auto) 7.5 % 01/19/23 10:58 Eos % (Auto) 5.3 % 01/19/23 10:58 Baso % (Auto) 1.1 % 01/19/23 10:58 Neut # (Auto) 4.25 10^3/uL (1.8-7.7) 01/19/23 10:58 Lymph # (Auto) 2.5 10^3/uL (0.8-4.8) 01/19/23 10:58 [place] # (Auto) 0.6 10^3/uL (0.2-0.9) 01/19/23 10:58 Eos # (Auto) 0.4 10^3/uL (0.0-0.8) 01/19/23 10:58 Baso # (Auto) 0.1 10^3/uL (0.0-0.1) 01/19/23 10:58 Nucleated RBC % (auto) 0 % 01/19/23 10:58 Nucleated RBCs # 0.0 /100WBC 01/19/23 10:58 Sodium 137 mmol/L (136-145) 01/19/23 11:23 Potassium 3.8 mmol/L (3.5-5.1) 01/19/23 11:23 Chloride 98 mmol/L (98-107) 01/19/23 11:23 Carbon Dioxide 31 mmol/L (22-29) H 01/19/23 11:23 Anion Gap 11.8 (5-19) 01/19/23 11:23 BUN 12 mg/dL (8-23) 01/19/23 11:23 Creatinine 0.6 mg/dL (0.5-0.9) 01/19/23 11:23 GFR Calculation Not Reportable 01/19/23 11:23 Glucose 103 mg/dL (65-115) 01/19/23 11:23 Calculated Osmolality 284 mOsm/kg (285-295) L 01/19/23 11:23 Calcium 9.1 mg/dL (8.5-10.5) 01/19/23 11:23 Total Bilirubin 0.4 mg/dL (0.15-1.2) 01/19/23 10:58 AST 22 U/L (0-32) 01/19/23 10:58 ALT 20 U/L (0-33) 01/19/23 10:58 Alkaline Phosphatase 29 U/L (35-105) L 01/19/23 10:58 Total Protein 7.2 g/dL (6.6-8.7) 01/19/23 10:58 Albumin 3.5 g/dL (3.5-5.2) 01/19/23 10:58 Globulin 3.7 g/dL (1.3-4.6) 01/19/23 10:58 Discharge Plan Discharge Patient Disposition: Home Clinical Impression: Seroma after procedure Condition: Stable Prescriptions: New doxycycline monohydrate 100 mg capsule 100 mg PO BID 7 Days Qty: 14 0RF No Action (DME) woundvac See Rx Instructions .Route .MEDSUPPLY Qty: 1 0RF Rx Instructions: As directed atorvastatin [Lipitor] 40 mg tablet 40 mg PO BEDTIME ropinirole 1 mg tablet See Rx Instructions .ROUTE .COMPLEX Rx Instructions: 1mg po q am and 2mg po qpm tizanidine 4 mg tablet 4 mg PO TID PRN (Reason: Muscle Spasm) citalopram [Celexa] 20 mg tablet 20 mg PO DAILY trazodone 100 mg tablet 100 mg PO BEDTIME ferrous sulfate [Iron (ferrous sulfate)] 325 mg (65 mg iron) Tablet 325 mg PO DAILY oxybutynin chloride 5 mg tablet 5 mg PO BID metoprolol tartrate 25 mg tablet 12.5 mg PO BID nitrofurantoin macrocrystal [Macrodantin] 50 mg Capsule 50 mg PO DAILY Hold Instructions: Resume on 05/04/21. hold until antibiotics finishes tramadol 50 mg Tablet 50 mg PO Q8H PRN (Reason: Pain) albuterol sulfate 90 mcg/actuation HFA aerosol inhaler 2 inh inhalation Q8H PRN (Reason: shortness of breath or wheezing) Qty: 6.7 0RF amitriptyline 25 mg tablet 25 mg PO BEDTIME diazepam 5 mg tablet 5 mg PO BID acetaminophen 500 mg Tablet 1,000 mg PO Q8H Qty: 0 0RF neomycin-polymyxin B-dexameth 3.5mg/mL-10,000 unit/mL-0.1 % drops,suspension 4 drp ophthalmic (eye) QID PRN (Reason: Inflammation) omeprazole 20 mg capsule,delayed release(DR/EC) 20 mg PO DAILY furosemide 20 mg tablet 20 mg PO DAILY nystatin 100,000 unit/gram Powder 1 applic TOPICAL DAILY PRN (Reason: Rash) Discharge Orders: Discharge ED (Routine); Ordered 01/19/23 Ordered By: Raul Vieyra Referrals: Efren Romano MD [Primary Care Provider] - Discharge Diet: Usual diet Discharge Activity: Increase activity as tolerated Patient Instructions: Opioid Safety, Pain Management Activity Restrictions/Additional Instructions: There is small fluid collections in the medial lateral aspect of the left thigh. Recommend start oral antibiotics prescribed today. Follow-up with Dr. Romano within the next few days. If you develop fever return to the emergency room. Coding Level of Care Code ED Activities Concierge for Martín Curiel
[2023-01-19 11:21] LABS: Alanine Aminotransferase 20 U/L (0-33); Albumin Level 3.5 g/dL (3.5-5.2); Alkaline Phosphatase 29 U/L (35-105); Anion Gap 10.4 (5-19); Aspartate Amino Transferase 22 U/L (0-32); Blood Urea Nitrogen 11 mg/dL (8-23); Calcium 8.9 mg/dL (8.5-10.5); Carbon Dioxide 34 mmol/L (22-29); Chloride 100 mmol/L (98-107); Creatinine Clr Calc Pharmacy 64.8343; Globulin 3.7 g/dL (1.3-4.6); Glucose 99 mg/dL (65-115); Osmolality Calculated 289 mOsm/kg (285-295); Potassium 4.4 mmol/L (3.5-5.1); Sodium 140 mmol/L (136-145); Total Bilirubin 0.4 mg/dL (0.15-1.2); Total Protein 7.2 g/dL (6.6-8.7)
[2023-01-19 11:58] LABS: Anion Gap 11.8 (5-19); Blood Urea Nitrogen 12 mg/dL (8-23); Calcium 9.1 mg/dL (8.5-10.5); Carbon Dioxide 31 mmol/L (22-29); Chloride 98 mmol/L (98-107); Creatinine Clr Calc Pharmacy 64.8343; Glucose 103 mg/dL (65-115); Osmolality Calculated 284 mOsm/kg (285-295); Potassium 3.8 mmol/L (3.5-5.1); Sodium 137 mmol/L (136-145)
[2023-01-19 12:53] VITALS: BP 146/74; PULSE 55; RESP 18; O2SAT 95
[2023-01-19] MEDS: iohexol 350 mg/mL 500 mL Btl (per mL) IV (13:44)
--- NOTE | 2023-01-19 15:41 | PC.NURSE ---
PATIENT WOUND DRESSED WITH TELFA PAD AND TAPE.
[2023-01-19 15:42] VITALS: PULSE 61; RESP 18; O2SAT 95
[2023-01-19 15:43] VITALS: PULSE 61; RESP 18; O2SAT 95
[2023-01-19 19:00] VITALS: RESP 18; O2SAT 97
== END 2023-01-19 22:45 | disposition home or self-care (01) ==
PROVIDERS: Emergency Provider Family Medicine; PCP Family Medicine
DX: L76.34 Postprocedural seroma of skin and subcutaneous tissue following other procedure (principal); I13.0 Hypertensive heart and chronic kidney disease with heart failure and stage 1 through stage 4 chronic kidney disease, or unspecified chronic kidney disease; N18.2 Chronic kidney disease, stage 2 (mild); I50.9 Heart failure, unspecified; Z86.73 Personal history of transient ischemic attack (TIA), and cerebral infarction without residual deficits; E78.5 Hyperlipidemia, unspecified
CPT/HCPCS: 36415; 73706; 80048; 80053; 85025; 87040; 87070; 87077; 87186; 99285; Q9967

== ENCOUNTER 2023-07-24 13:11 | Inpatient (IN) | payer MEDICARE, MEDICAID, SELFPAY ==
[2023-07-24] VITALS (8 sets, daily range): BP systolic 127–143; BP diastolic 51–70; PULSE 49–81; RESP 16–18; TEMP 36.8–37; O2SAT 86–97; BMI 22.7
--- NOTE | 2023-07-24 13:31 | XR_ITS ---
WS: [id number] Exam: XR chest 1V portable [id number] Date/Time of Exam: 07/24/2023 1:38 PM Reason For Exam: sob Comparison 04/24/2021. The lungs are fully expanded. No acute infiltrates are noted. Plaque atelectasis in the LEFT base. Ca rdiomediastinal silhouette is unremarkable for technique. No pleural effusions. Bilateral high riding humeral heads indicate rotator cuff pathology. Remaining bony structures are intact. Rotator cuff an chor in the LEFT humeral head. IMPRESSION: 1. No acute cardiopulmonary finding. 2. Plaque atelectasis in the LEFT base.
--- NOTE | 2023-07-24 13:40 | ED_ITS ---
HPI - SOB/Dyspnea 2 General: Chief Complaint: Shortness of Breath/Dyspnea Stated Complaint: SOB, Cough Time Seen by Provider: 07/24/23 13:31 Source: patient and EMS Mode of arrival: EMS Limitations: no limitations History of Present Illness: HPI Narrative: 73-year-old female who has a history of stroke in the past she lives with her states that she has to wear oxygen at night but does not typically wear during the day states she has had increasing cough this been a wet cough for the last 3 days she had some hypoxia at home when EMS arrived she was on room air and was in the mid 80s and put her on 3 L no known fever denies any worsening improving factors Associated symptoms: Deny abdominal pain, chest pain, fever(s), nausea or vomiting Review of Systems 2 Const: Denies: fever(s), chills, body aches or change in appetite ENMT: Denies: throat pain or dental pain Card: Denies: chest pain Resp: Reports: dyspnea and productive cough GI: Denies: abdominal pain, nausea, vomiting or diarrhea Musc: Denies: neck pain or back pain Skin/Breast: Denies: rash Neuro: Denies: headache(s) PFSH ED 2 PFSH: Medical History DVT prophylaxis Dysphagia Pneumonia Sepsis Wound of left lower extremity Fracture of lateral malleolus of left fibula Adult BMI 40.0-44.9 kg/sq m Anemia UTI (urinary tract infection) Diastolic CHF Supracondylar fracture of left femur Fracture of distal end of femur Chronic antibiotic suppression Has been taking nitrofurantoin for last 6 months as per the Chronic anticoagulation Coumadin 2 and 3mg daily depending on INR 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 Presence of IVC filter Lymphedema Venous stasis dermatitis Chronic anemia Chronic kidney disease, stage II (mild) Dyslipidemia Hypertension Left-sided weakness CVA (cerebral vascular accident) Surgical History H/O shoulder surgery History of hip surgery History of hysterectomy S/P cholecystectomy Family History Other CAD (coronary artery disease) Hypertension Stroke Social History Smoking and tobacco/nicotine status: never used tobacco/nicotine Alcohol intake: never Substance/Drug Use: never Household members: spouse Housing: House Physical Exam 2 Const: COMMON NORMALS: patient oriented x3 GENERAL APPEARANCE: ill appearing HENMT: COMMON NORMALS: normocephalic and atraumatic HEAD & SCALP: n ormocephalic and atraumatic Eye: COMMON NORMALS: Equal, round and reactive pupils present and EOMs intact bilaterally PUPIL: Yes Equal, round and reactive pupils present Neck/C-Spine: COMMON NORMALS: full ROM and supple Chest: COMMONS NORMALS: normal inspection of the chest and normal palpation of entire chest wall Resp: COMMON NORMALS: No retractions and No use of accessory muscles A USCULTATION: rhonchi Cardio: COMMON NORMALS: regular rate, regular rhythm and No murmurs present (Cardio) RATE: regular rate RHYTHM: regular rhythm GI: COMMON NORMALS: Normal to inspection, nondistended, normoactive bowel sounds present, Soft to palpation, non-tender and no masses PALPATION: Yes Soft to palpation Extremity: COMMON NORMALS: normal to inspection and full ROM Neuro: COMMON NORMALS: patient oriented x3, moves all extremities and no focal motor deficits Psych: COMMON NORMALS: mental status grossly normal, Normal thought process present and cooperative THOUGHT PROCESS: Normal thought process present Skin: COMMON NORMALS: no rashes or lesions noted and no wounds GENERAL SKIN EXAM: no rashes or lesions noted Course 2 Vital Signs: Vital signs: Vital Signs Temperature 98.3 F 07/24/23 13:14 Pulse Rate 65 07/24/23 15:09 Respiratory Rate 16 07/24/23 15:09 Blood Pressure 143/51 07/24/23 15:09 Pulse Oximetry 92 07/24/23 15:09 Oxygen Delivery Me thod Nasal Cannula 07/24/23 15:09 Oxygen Flow Rate 3.5 07/24/23 15:09 MDM - SOB/Dyspnea Medical Decision Making Patient presents here with dyspnea likely has a pneumonia as she is hypoxic here as well requiring oxygen I spoke to hospitalist will admit patient started on IV antibiotics. Medical Records I reviewed the patient's medical records. Lab Data I reviewed the patient's lab results. 07/24/23 13:47 07/24/23 13:47 Labs/Radiology: Laboratory Results WBC 13.94 10^3/uL (3.29-11.43) H 07/24/23 13:47 RBC 4.53 10^6/uL (3.85-5.65) 07/24/23 13:47 Hgb 13.50 g/dL (11.27-16.99) 07/24/23 13:47 Hct 42.5 % (36-47) 07/24/23 13:47 MCV 93.8 fl (85-98) 07/24/23 13:47 MCH 29.8 pg (27-33) 07/24/23 13:47 MCHC 31.8 g/dL (30-55) 07/24/23 13:47 RDW 14.7 % (12.1-15.1) 07/24/23 13:47 Plt Count 255 10^3/cmm (157-399) 07/24/23 13:47 MPV 9.6 fL (7.4-10.4) 07/24/23 13:47 Neut % (Auto) 87.5 % 07/24/23 13:47 Lymph % (Auto) 6.5 % 07/24/23 13:47 [place] % (Auto) 5.2 % 07/24/23 13:47 Eos % (Auto) 0.1 % 07/24/23 13:47 Baso % (Auto) 0.3 % 07/24/23 13:47 Neut # (Auto) 12.19 10^3/uL (1.8-7.7) H 07/24/23 13:47 Lymph # (Auto) 0.9 10^3/uL (0.8-4.8) 07/24/23 13:47 [place] # (Auto) 0.7 10^3/uL (0.2-0.9) 07/24/23 13:47 Eos # (Auto) 0.0 10^3/uL (0.0-0.8) 07/24/23 13:47 Baso # (Auto) 0.0 10^3/uL (0.0-0.1) 07/24/23 13:47 Nucleated RBC % (auto) 0 % 07/24/23 13:47 Nucleated RBCs # 0.0 /100WBC 07/24/23 13:47 PT 14.50 SECONDS (12.1-14.9) 07/24/23 13:47 INR 1.09 (0.8-1.2) 07/24/23 13:47 Specimen Type Arterial 07/24/23 13:41 Sample Site Radial, right 07/24/23 13:41 ABG pH 7.43 (7.35-7.45) 07/24/23 13:41 ABG pCO2 46.4 mmHg (35-45) H 07/24/23 13:41 ABG pO2 56.4 mmHg (80.0-100.0) L 07/24/23 13:41 ABG PO2/FiO2 Ratio 0 07/24/23 13:41 ABG HCO3 30.6 mmol/L (22-26) H 07/24/23 13:41 ABG Base Excess 5.3 mmol/L (-2.0-2.0) H 07/24/23 13:41 [place] Test Pos 07/24/23 13:41 Hematocrit 41.4 % (37-47) 07/24/23 13:41 Hgb O2 Saturation 87.3 % (95-100) L 07/24/23 13:41 Carboxyhemoglobin 1.8 %THgb (0.4-20.1) 07/24/23 13:41 Methemoglobin 0.6 % (0.4-1.5) 07/24/23 13:41 Total Hemoglobin 13.5 g/dL (12-16) 07/24/23 13:41 O2 Delivery Device Room air 07/24/23 13:41 FiO2 21.0 % 07/24/23 13:41 Final Assembler Boat ID [place] 07/24/23 13:41 Sodium 137 mmol/L (136-145) 07/24/23 13:47 Potassium 4.0 mmol/L (3.5-5.1) 07/24/23 13:47 Chloride 99 mmol/L (98-107) 07/24/23 13:47 Carbon Dioxide 30 mmol/L (22-29) H 07/24/23 13:47 Anion Gap 12.0 (5-19) 07/24/23 13:47 BUN 12 mg/dL (8-23) 07/24/23 13:47 Creatinine 0.5 mg/dL (0.5-0.9) 07/24/23 13:47 GFR Calculation Not Reportable 07/24/23 13:47 Glucose 150 mg/dL (65-115) H 07/24/23 13:47 Calculated Osmolality 287 mOsm/kg (285-295) 07/24/23 13:47 Calcium 8.8 mg/dL (8.5-10.5) 07/24/23 13:47 Total Bilirubin 0.7 mg/dL (0.15-1.2) 07/24/23 13:47 AST 18 U/L (0-32) 07/24/23 13:47 ALT 8 U/L (0-33) 07/24/23 13:47 Alkaline Phosphatase 24 U/L (35-105) L 07/24/23 13:47 NT-Pro-B Natriuret Pep 424 pg/mL (0-125) H 07/24/23 13:47 Total Protein 7.4 g/dL (6.6-8.7) 07/24/23 13:47 Albumin 3.3 g/dL (3.5-5.2) L 07/24/23 13:47 Globulin 4.1 g/dL (1.3-4.6) 07/24/23 13:47 Influenza Type A Ag negative (Negative) 07/24/23 13:47 Influenza Type B Ag negative (Negative) 07/24/23 13:47 SARS-CoV-2 Ag (Rapid) negative (Negative) 07/24/23 13:47 All radiology interpretation(s) finalized by discharge EKG Data EKG 1: I personally reviewed and interpreted this EKG as follows: EKG Interpretation Date: 07/24/23 EKG interpretation time: 13:43 Interpretation: nsr hr [address] elevation qrs 95 qtc 396 Discharge Plan Discharge Patient Disposition: Admitted As Inpatient Clinical Impression: Community acquired pneumonia, Acute respiratory failure with hypoxia Condition: Stable Prescriptions: No Action (DME) woundvac See Rx Instructions .Route .MEDSUPPLY Qty: 1 0RF Rx Instructions: As directed atorvastatin [Lipitor] 40 mg tablet 40 mg PO BEDTIME ropinirole 1 mg tablet See Rx Instructions .ROUTE .COMPLEX Rx Instructions: 1mg po q am and 2mg po qpm tizanidine 4 mg tablet 4 mg PO TID PRN (Reason: Muscle Spasm) citalopram [Celexa] 20 mg tablet 20 mg PO DAILY trazodone 100 mg tablet 100 mg PO BEDTIME ferrous sulfate [Iron (ferrous sulfate)] 325 mg (65 mg iron) Tablet 325 mg PO DAILY oxybutynin chloride 5 mg tablet 5 mg PO BID metoprolol tartrate 25 mg tablet 12.5 mg PO BID nitrofurantoin macrocrystal [Macrodantin] 50 mg Capsule 50 mg PO DAILY Hold Instructions: Resume on 05/04/21. hold until antibiotics finishes tramadol 50 mg Tablet 50 mg PO Q8H PRN (Reason: Pain) albuterol sulfate 90 mcg/actuation HFA aerosol inhaler 2 inh inhalation Q8H PRN (Reason: shortness of breath or wheezing) Qty: 6.7 0RF amitriptyline 25 mg tablet 25 mg PO BEDTIME diazepam 5 mg tablet 5 mg PO BID acetaminophen 500 mg Tablet 1,000 mg PO Q8H Qty: 0 0RF neomycin-polymyxin B-dexameth 3.5mg/mL-10,000 unit/mL-0.1 % drops,suspension 4 drp ophthalmic (eye) QID PRN (Reason: Inflammation) omeprazole 20 mg capsule,delayed release(DR/EC) 20 mg PO DAILY furosemide 20 mg tablet 20 mg PO DAILY nystatin 100,000 unit/gram Powder 1 applic TOPICAL DAILY PRN (Reason: Rash) Referrals: Efren Romano MD [Primary Care Provider] - Coding Level of Care Code ED Analytical Consultant for Martín Curiel
--- NOTE | 2023-07-24 13:43 | ECG_ITS ---
[facility] Test Date: 2023-07-24 Pat Name: Doris Clarke Department: Room: Gender: Female Senior Counsel Commercial: : 1950 Requested By: Ginny Bird Order Number: [id number] Alberto MD: Santo Armas M.D. Measurements Intervals [place] Rate: 81 P: 64 MS: 138 QRS: 29 QRSD: 95 T: 4 QT: 359 QTc: 418 Interpretive Statements SINUS RHYTHM MODERATE T-WAVE ABNORMALITY, CONSIDER ANTERIOR ISCHEMIA [-0.1+ mV T-WAVE IN V3/V4] MODERATE T-WAVE ABNORMALITY, CONSIDER INFERIOR ISCHEMIA [-0.1+ mV T-WAVE IN II/aVF] Compared to ECG 04/15/2021 04:51:46 Possible ischemia now present T-wave abnormality still present Electronically Signed On 07-24-2023 15:26:13 WARD SECRETARY by Santo Armas M.D. [id number]
[2023-07-24 13:52] LABS: ABG PCO2 46.4 mmHg (35-45); ABG PH Result 7.43 (7.35-7.45); Arterial Blood Gas Hematocrit 41.4 % (37-47); Base Excess ABG 5.3 mmol/L (-2.0-2.0); Blood Gas Allen Test Pos; Blood Gas Operator Identificat WALCI; Blood Gas Sample Site Radial, right; Blood Gas Sample Type Arterial; Carboxyhemoglobin 1.8 %THgb (0.4-20.1); HCO3 ABG 30.6 mmol/L (22-26); HGB O2 Sat 87.3 % (95-100); Methemoglobin 0.6 % (0.4-1.5); Oxygen Device ROOM AIR; PO2 ABG 56.4 mmHg (80.0-100.0); PO2 FiO2 Ratio Arterial Blood 0; Total Hemoglobin 13.5 g/dL (12-16)
[2023-07-24 13:55] LABS: Basophils % 0.3 %; Eosinophils % 0.1 %; Hematocrit 42.5 % (36-47); Lymphocytes # 0.9 10^3/uL (0.8-4.8); Lymphocytes % 6.5 %; Mean Corpuscular HGB Conc 31.8 g/dL (30-55); Mean Corpuscular Hemoglobin 29.8 pg (27-33); Mean Corpuscular Volume 93.8 fl (85-98); Mean Platelet Volume 9.6 fL (7.4-10.4); Monocytes # 0.7 10^3/uL (0.2-0.9); Monocytes % 5.2 %; Neutrophils # 12.19 10^3/uL (1.8-7.7); Neutrophils % 87.5 %; Nucleated Red Blood Cells % 0 %; Platelet Count 255 10^3/cmm (157-399); Red Blood Count 4.53 10^6/uL (3.85-5.65); Red Cell Distribution Width 14.7 % (12.1-15.1); White Blood Count 13.94 10^3/uL (3.29-11.43)
[2023-07-24 14:09] LABS: INR 1.09 (0.8-1.2)
[2023-07-24 14:11] LABS: Influenza A by IFA negative (Negative); Influenza B by IFA negative (Negative)
[2023-07-24 14:12] LABS: SARS Covid-2 Antigen negative (Negative)
[2023-07-24] MEDS: cefTRIAXone 1,000 MG in sodium chloride 0.9% (plus) 50 ML 100 MG IV (14:25)
[2023-07-24 14:30] LABS: Alanine Aminotransferase 8 U/L (0-33); Albumin Level 3.3 g/dL (3.5-5.2); Alkaline Phosphatase 24 U/L (35-105); Blood Urea Nitrogen 12 mg/dL (8-23); Calcium 8.8 mg/dL (8.5-10.5); Carbon Dioxide 30 mmol/L (22-29); Chloride 99 mmol/L (98-107); Globulin 4.1 g/dL (1.3-4.6); Glucose 150 mg/dL (65-115); NT Pro B Type Natriuretic Pept 424 pg/mL (0-125); Osmolality Calculated 287 mOsm/kg (285-295); Sodium 137 mmol/L (136-145); Total Bilirubin 0.7 mg/dL (0.15-1.2); Total Protein 7.4 g/dL (6.6-8.7)
[2023-07-24 14:46] LABS: Aspartate Amino Transferase 18 U/L (0-32)
[2023-07-24] MEDS: azithromycin 500 MG in sodium chloride 0.9% 250 ML 250 MG IV (15:06)
--- NOTE | 2023-07-24 16:54 | PC.NURSE ---
1610 attempted report, no answer
--- NOTE | 2023-07-24 16:56 | PC.NURSE ---
attempted report, nurse unavailable.
--- NOTE | 2023-07-24 17:40 | P.HP_ITS ---
Providers/Chief Complaint 2 Admitting Physician: Carson Tony MD Primary Care Provider: Efren Romano MD Chief Complaint: SOB, Cough History of Present Illness Doris Clarke is a 73 year old female with a past medical history of CVA, chronic left upper extremity flexion contracture, left-sided weakness, history of chronic anemia, diastolic CHF, history of IVC filter in place, history of left knee abscess with dehiscence, requiring IV antibiotics wound VAC, is on chronic antibiotic suppressive therapy, dyslipidemia, dysphagia, hypertension, lipidemia, is on oxygen at home during the night, who presents [facility], as she tells me that she is having chest pain, and her think she is having a heart attack. She does report a cough, due to her cough, EMS was called out to her home, they found her to be hypoxic placed on 3 L. Currently she denies any chest pain, but did have an earlier, she tells me that she is only here because her wanted her to come to the hospital as he thinks that she was having a heart attack. She is alert to person, not to place, not to time, she thinks it is 1954, she can follow some basic commands such as smiling for me, she has a flexion contracture of the left upper extremity, she does have spontaneous movement of bilateral extremity, does have edema bilateral extremities, but does not follow other commands, she does not appear to be short of breath, does not appear to be in respiratory distress, pupils equal round react light no facial droop no slurring of her words, currently encephalopathic Review of Systems 2 Const: Denies: fever(s) Card: Reports: chest pain Resp: Denies: dyspnea GI: Denies: abdominal pain Medications/Allergies Home Medications Medication Instructions Recorded Confirmed Last Taken Type atorvastatin 40 mg tablet (Lipitor) 40 mg PO BEDTIME 03/21/20 01/19/23 01/18/23 History citalopram 20 mg tablet (Celexa) 20 mg PO DAILY 03/21/20 01/19/23 01/19/23 History ferrous sulfate 325 mg (65 mg 325 mg PO DAILY 03/21/20 01/19/23 01/19/23 History iron) tablet (Iron (ferrous sulfate)) metoprolol tartrate 25 mg tablet 12.5 mg PO BID 03/21/20 01/19/23 01/19/23 History oxybutynin chloride 5 mg tablet 5 mg PO BID 03/21/20 01/19/23 01/19/23 History ropinirole 1 mg tablet See Rx Instructions .Route .COMPLEX 03/21/20 01/19/23 01/19/23 History tizanidine 4 mg tablet 4 mg PO TID PRN Muscle Spasm 03/21/20 01/19/23 04/06/21 History trazodone 100 mg tablet 100 mg PO BEDTIME 03/21/20 01/19/23 01/18/23 History amitriptyline 25 mg tablet 25 mg PO BEDTIME 12/30/20 01/19/23 01/18/23 History diazepam 5 mg tablet 5 mg PO BID 12/30/20 01/19/23 01/19/23 History acetaminophen 500 mg tablet 1,000 mg (2 x 500 mg) PO Q8H #0 01/04/21 01/19/23 01/19/23 Rx tabs nitrofurantoin macrocrystal 50 mg 50 mg PO DAILY 04/06/21 01/19/23 01/19/23 History capsule (Macrodantin) woundvac #1 ea 04/06/21 01/19/23 Unknown Rx tramadol 50 mg tablet 50 mg PO Q8H PRN Pain 04/16/21 01/19/23 Unknown History albuterol sulfate 90 mcg/actuation 2 inh inhalation Q8H PRN shortness 04/17/21 01/19/23 Unknown Rx aerosol inhaler of breath or wheezing #6.7 grams furosemide 20 mg tablet 20 mg PO DAILY 01/19/23 01/19/23 01/19/23 History aakeksko-gjnyrpmhh-fgrknglk 3.5 4 drp ophthalmic (eye) QID PRN 01/19/23 01/19/23 Unknown History mg/mL-10,000 unit/mL-0.1% eye drops Inflammation nystatin 100,000 unit/gram topical 1 applic topical DAILY PRN Rash 01/19/23 01/19/23 Unknown History powder omeprazole 20 mg capsule,delayed 20 mg PO DAILY 01/19/23 01/19/23 01/19/23 History release Allergies Allergy/AdvReac Type Severity Reaction Status Date / Time fluconazole Allergy Unknown Verified 01/19/23 10:50 latex Allergy Unknown Verified 01/19/23 10:50 Sulfa (Sulfonamide Allergy Unknown Verified 01/19/23 10:50 Antibiotics) PFSH Acute 2 PFSH: Medical History (Updated 07/24/23 @ 17:47 by Carson Tony MD) DVT prophylaxis Dysphagia Pneumonia Sepsis Wound of left lower extremity Fracture of lateral malleolus of left fibula Adult BMI 40.0-44.9 kg/sq m Anemia UTI (urinary tract infection) Diastolic CHF Supracondylar fracture of left femur Fracture of distal end of femur Chronic antibiotic suppression Has been taking nitrofurantoin for last 6 months as per the Chronic anticoagulation Coumadin 2 and 3mg daily depending on INR 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 Presence of IVC filter Lymphedema Venous stasis dermatitis Chronic anemia Chronic kidney disease, stage II (mild) Dyslipidemia Hypertension Left-sided weakness CVA (cerebral vascular accident) Surgical History History of hip surgery H/O shoulder surgery History of hysterectomy S/P cholecystectomy Family History Other CAD (coronary artery disease) Hypertension Stroke Social History Smoking and tobacco/nicotine status: never used tobacco/nicotine Alcohol intake: never Substance/Drug Use: never Household members: spouse Housing: House Vitals/I&O/Wt Last Vital Signs Temp 98.3 F 07/24/23 13:14 Pulse 65 07/24/23 15:09 Resp 16 07/24/23 15:09 BP 143/51 07/24/23 15:09 Pulse Ox 92 07/24/23 15:09 O2 Del Method Nasal Cannula 07/24/23 15:09 O2 Flow Rate 3.5 07/24/23 15:09 07/24/23 07/24/23 07/24/23 06:59 14:59 22:59 Intake Total 300 / 300 Balance 300 / 300 Physical Exam 2 Const: COMMON NORMALS: no acute distress EXAM LIMITATIONS: altered mental status ORIENTATION/CONSCIOUSNESS: Yes awake, Yes oriented to person and Yes confused; not oriented to place and not oriented to time HENMT: COMMON NORMALS: normocephalic HEAD & SCALP: normocephalic Eye: COMMON NORMALS: Equal, round and reactive pupils present Neck/C-Spine: COMMON NORMALS: no JVD Resp: COMMON NORMALS: normal respiratory effort, No retractions and No use of accessory muscles AUSCULTATION: wheezes Cardio: COMMON NORMALS: no JVD, regular rate, regular rhythm, S1 normal heart sound present and S2 normal heart sound present RATE: regular rate RHYTHM: regular rhythm HEART SOUNDS: S1 normal heart sound present and S2 normal heart sound present GI: COMMON NORMALS: Normal to inspection, nondistended, normoactive bowel sounds present, Soft to palpation and non-tender Extremity: NARRATIVE EXTREMITY EXAM: 1+ pitting edema Neuro: OTHER: Flexion contracture left upper extremity, decreased movement of left lower extremity, does have spontaneous movement of right upper and right lower extremity, able to smile for me, pupils equal round reactive to light, does not follow any other neurologic testing Data 07/24/23 13:47 07/24/23 13:47 Micro: Microbiology 07/24/23 15:38 Blood Culture - Preliminary Blood SPECIMEN COLLECTED 07/24/23 13:47 Blood Culture - Preliminary Blood SPECIMEN COLLECTED A&P Assessment and plan (1) Acute encephalopathy: (2) Chest pain: (3) Pneumonia: Qualifiers: Laterality: bilateral Lung location: unspecified part of lung P neumonia type: due to unspecified organism Qualified Code(s): J18.9 - Pneumonia, unspecified organism (4) Dyslipidemia: (5) Left-sided weakness: (6) CVA (cerebral vascular accident): (7) Lymphedema: (8) Generalized weakness: (9) Acute respiratory failure with hypoxia: Plan Acute hypoxic respiratory failure secondary to pneumonia Plan -Sputum cultures, blood cultures -Continue Rocephin, azithromycin -Continue DuoNeb -Monitor respiratory status closely Acute encephalopathy -Etiology likely secondary to pneumonia -Neurochecks, aspiration precautions, stroke scale Chest pain -Serial EKGs, serial troponins, telemetry monitoring -Aspirin, statin History of CVA with left-sided weakness History of anemia Full code Lovenox for DVT prophylaxis Attestations 2 Medical Necessity Statement*: Patient requires hospitalization, inpatient, greater than 2 midnights, for acute hypoxia secondary to pneumonia, complaints of chest pain, acute encephalopathy Diagnoses Acute encephalopathy G93.40 Chest pain R07.9 Pneumonia J18.9 Laterality: bilateral Lung location: unspecified part of lung Pneumonia type: due to unspecified organism Dyslipidemia E78.5 Left-sided weakness R53.1 CVA (cerebral vascular accident) I63.9 Lymphedema I89.0 Generalized weakness R53.1 Acute respiratory failure with hypoxia J96.01
[2023-07-24 18:01] LABS: INR 1.05 (0.8-1.2)
--- NOTE | 2023-07-24 18:17 | ECG_ITS ---
[facility] Test Date: 2023-07-24 Pat Name: Doris Clarke Department: Room: 276 Gender: Female Marine Steam Fitter: : 1950 Requested By: Carson Tony Order Number: [id number] Alberto MD: Santo Armas M.D. Measurements Intervals [place] Rate: 62 P: 66 IN: 141 QRS: 28 QRSD: 103 T: 42 QT: 450 QTc: 460 Interpretive Statements SINUS RHYTHM MODERATE T-WAVE ABNORMALITY, CONSIDER ANTEROLATERAL ISCHEMIA [-0.1+ mV T-WAVE IN V3-V6] Compared to ECG 07/24/2023 13:43:26 No significant changes Electronically Signed On 07-25-2023 7:24:51 HAIR SPINNING MACHINE OPERATOR by Santo Armas M.D. [id number]
[2023-07-24] MEDS: metoprolol tartrate 25 mg Tablet 12.5 MG PO (18:42)
[2023-07-24] MEDS: diazePAM 5 mg Tablet PO (18:42)
[2023-07-24] MEDS: aspirin 81 mg EC Tablet PO (18:42)
[2023-07-24] MEDS: ropinirole 1 mg Tablet 2 MG PO (18:42)
[2023-07-24 19:08] LABS: Procalcitonin 0.08 ng/mL (0-0.5); Thyroid Stimulating Hormone 1.17 uIU/mL (0.27-4.20)
[2023-07-24 19:20] LABS: C Reactive Protein 9.9 mg/L (0.0-4.9); Chol HDL Ratio 3.73 mg/dL (0.0-4.40); Cholesterol 123 mg/dL (0-200); HDL Cholesterol 33 mg/dL (60-100); LDL Cholesterol Calculated 73 mg/dL (50-129); LDL HDL Ratio 2.21 RATIO (0.00-3.22); Magnesium 1.7 mg/dL (1.7-2.3); Triglycerides 85 mg/dL (0-150)
[2023-07-24 19:44] LABS: Estmated Average Glucose 100; Hemoglobin A1C 5.1 % (4.0-6.0)
[2023-07-24 20:05] LABS: Add Urine Microscopic? NO; Charge for UA Resulting for Rev
[2023-07-24 20:12] LABS: Bilirubin Urine Neg (Negative); Blood Urine Neg (Negative); Glucose Urine UA Norm (Normal); Ketones Urine Negative (Negative); Leukocyte Esterase Urine Negative (Negative); Nitrate Urine Negative (Negative); Protein Urine Neg (Negative); Urine Appearance Clear (CLEAR); Urine Color Dark Yellow (Yellow); Urobilinogen Urine Norm (Negative); pH Urine 5 (5-7)
[2023-07-24] MEDS: trazodone 100 mg Tablet PO (21:44)
[2023-07-24] MEDS: atorvastatin 40 mg Tablet PO (21:44)
[2023-07-24 21:46] LABS: Adenovirus Not Detected (NOT DETECT); Chlamydia Pneumoniae Not Detected (NOT DETECT); Coronavirus 229E,HKU1,NL63,OC4 Not Detected (NOT DETECT); Human Metapneumovirus Not Detected (NOT DETECT); Human Rhinovirus/Enterovirus Not Detected (NOT DETECT); Influenza A Not Detected (NOT DETECT); Influenza A H1 Not Detected (NOT DETECT); Influenza A H1-2009 Not Detected (NOT DETECT); Influenza A H3 Not Detected (NOT DETECT); Influenza B Not Detected (NOT DETECT); Mycoplasma Pneumoniae Not Detected (NOT DETECT); Parainfluenza Virus Type 1 Not Detected (NOT DETECT); Parainfluenza Virus Type 2 Not Detected (NOT DETECT); Parainfluenza Virus Type 3 Not Detected (NOT DETECT); Parainfluenza Virus Type 4 Not Detected (NOT DETECT); Respiratory Syncytial Virus A Not Detected (NOT DETECT); Respiratory Syncytial Virus B Not Detected (NOT DETECT); SARS-COV-2 Not Detected (NOT DETECT)
[2023-07-24 21:49] LABS: Lactic Sepsis W/Reflex 3.6 mmol/L (0.5-2.2)
[2023-07-24 21:55] LABS: Troponin(5th) Baseline 13 ng/L (0-10)
[2023-07-24 23:16] LABS: Reflex Lactate Order REFLEX LACTIC ORDERD
[2023-07-25] VITALS (12 sets, daily range): BP systolic 100–128; BP diastolic 57–76; PULSE 43–86; RESP 17–19; TEMP 36.8–37; O2SAT 91–99
[2023-07-25 00:19] LABS: Lactic Acid level (Lactate) 2.8 mmol/L (0.5-2.2)
[2023-07-25 03:21] LABS: Basophils % 0.2 %; Eosinophils % 0.1 %; Hematocrit 37.5 % (36-47); Lymphocytes # 1.4 10^3/uL (0.8-4.8); Lymphocytes % 12.1 %; Mean Corpuscular HGB Conc 32.3 g/dL (30-55); Mean Corpuscular Hemoglobin 30.2 pg (27-33); Mean Corpuscular Volume 93.5 fl (85-98); Mean Platelet Volume 9.7 fL (7.4-10.4); Monocytes # 0.9 10^3/uL (0.2-0.9); Monocytes % 7.3 %; Neutrophils % 79.8 %; Nucleated Red Blood Cells % 0 %; Platelet Count 225 10^3/cmm (157-399); Red Blood Count 4.01 10^6/uL (3.85-5.65); Red Cell Distribution Width 14.6 % (12.1-15.1); White Blood Count 11.65 10^3/uL (3.29-11.43)
[2023-07-25 03:51] LABS: Alanine Aminotransferase 10 U/L (0-33); Albumin Level 3.2 g/dL (3.5-5.2); Alkaline Phosphatase 25 U/L (35-105); Anion Gap 14.9 (5-19); Aspartate Amino Transferase 13 U/L (0-32); Blood Urea Nitrogen 13 mg/dL (8-23); Calcium 8.8 mg/dL (8.5-10.5); Carbon Dioxide 28 mmol/L (22-29); Chloride 100 mmol/L (98-107); Creatinine Clr Calc Pharmacy 60.4726; Globulin 3.4 g/dL (1.3-4.6); Glucose 128 mg/dL (65-115); Magnesium 1.9 mg/dL (1.7-2.3); Osmolality Calculated 290 mOsm/kg (285-295); Phosphorus 2.8 mg/dL (2.5-4.5); Potassium 3.9 mmol/L (3.5-5.1); Sodium 139 mmol/L (136-145); Total Bilirubin 0.4 mg/dL (0.15-1.2); Total Protein 6.6 g/dL (6.6-8.7)
[2023-07-25 04:02] LABS: NT Pro B Type Natriuretic Pept 799 pg/mL (0-125)
[2023-07-25 04:15] LABS: Troponin 5 6HR 11.27 ng/L (0-10)
[2023-07-25 04:16] LABS: Troponin 5 6HR Delta -1.73 ng/L (0-12)
[2023-07-25 07:24] LABS: Erythrocyte Sedimentation Rate 25 mm/hr (0-15)
[2023-07-25] MEDS: ferrous sulfate EC 325 mg Tablet PO (08:13)
[2023-07-25] MEDS: metoprolol tartrate 25 mg Tablet 12.5 MG PO ×2 (08:14→17:56)
[2023-07-25] MEDS: aspirin 81 mg EC Tablet PO (08:14)
[2023-07-25] MEDS: citalopram 20 mg Tablet PO (08:14)
[2023-07-25] MEDS: diazePAM 5 mg Tablet PO ×2 (08:14→17:56)
[2023-07-25] MEDS: ropinirole 1 mg Tablet PO (08:16)
[2023-07-25] MEDS: ipratropium-albuterol 3 mL Neb INHALATION ×4 (08:18→20:47)
--- NOTE | 2023-07-25 09:30 | PC.PHAR ---
MEDICATIONS VERIFIED VIA MED LIST PROVIDED BY SPOUSE (ASHLEY) 07/25/23
--- NOTE | 2023-07-25 11:37 | P.PN_ITS ---
Subjective 2 Subjective: patient was seen this morning, is at bedside, she denies chest pain, no shortness of breath, states she is bed bound at home, and need a yessi lift, we discussed her sacral decubitus ulcer stage 2-3 will have to do extensive wound care and respositioning, morbidity and mortality discussed, also examined and discussed her dti on left lower extremity, site of surgical site infection in the past, no tunnening, no draining, but does has surrounding erythema concerning for cellultis, will need wound care Vitals/I&O/Wt Last Vital Signs Temp 98.3 F 07/25/23 08:00 Pulse 55 L 07/25/23 11:36 Resp 18 07/25/23 11:36 BP 120/59 07/25/23 08:00 Pulse Ox 91 07/25/23 11:36 O2 Del Method Nasal Cannula 07/25/23 11:36 O2 Flow Rate 2 07/25/23 11:36 07/24/23 07/25/23 07/25/23 22:59 06:59 14:59 Intake Total 540 / 540 120 / 660 240 / 240 Output Total 900 / 900 Balance 540 / 540 -780 / -240 240 / 240 Weight last 48 hrs Weight 63.985 kg Weight 63.957 kg Physical Exam 2 Const: COMMON NORMALS: no acute distress ORIENTATION/CONSCIOUSNESS: Yes awake, Yes oriented to person and Yes oriented to place Resp: COMMON NORMALS: normal respiratory effort, No retractions, No use of accessory muscles and clear to auscultation bilaterally AUSCULTATION: clear to auscultation bilaterally Cardio: COMMON NORMALS: regular rate, regular rhythm, S1 normal heart sound present and S2 normal heart sound present RATE: regular rate RHYTHM: r egular rhythm HEART SOUNDS: S1 normal heart sound present and S2 normal heart sound present GI: COMMON NORMALS: Normal to inspection, nondistended, normoactive bowel sounds present and non-tender Extremity: NARRATIVE EXTREMITY EXAM: 1+ edema Neuro: SENSORIUM/ORIENTATION: Yes oriented to person and Yes oriented to place Psych: COMMON NORMALS: mental status grossly normal Data 07/25/23 03:02 07/25/23 03:02 Micro: Microbiology 07/24/23 15:38 Blood Culture - Preliminary Blood SPECIMEN COLLECTED 07/24/23 13:47 Blood Culture - Preliminary Blood SPECIMEN COLLECTED A&P Assessment and plan (1) Acute encephalopathy: (2) Chest pain: (3) Pneumonia: Qualifiers: Laterality: bilateral Lung location: unspecified part of lung P neumonia type: due to unspecified organism Qualified Code(s): J18.9 - Pneumonia, unspecified organism (4) Dyslipidemia: (5) Left-sided weakness: (6) CVA (cerebral vascular accident): (7) Lymphedema: (8) Generalized weakness: (9) Acute respiratory failure with hypoxia: (10) Sacral decubitus ulcer, stage III: (11) Deep tissue injury: (12) Fluid overload: (13) Cellulitis: Plan Acute hypoxic respiratory failure secondary to pneumonia Plan -Sputum cultures, blood cultures -Continue Rocephin, azithromycin -1 dose lasix today -Continue DuoNeb -Monitor respiratory status closely Acute encephalopathy -Etiology likely secondary to pneumonia -Neurochecks, aspiration precautions, stroke scale Chest pain -Serial EKGs, serial troponins, telemetry monitoring -Aspirin, statin History of CVA with left-sided weakness History of anemia stage 2-3 sacral decubitus ulcer, wound care, wet to dry dressing, reposition every 2 hours, consult dietary, consult pt/pt DTI 2 areas, left lower extremity, largest measuring [id number], with surrounding erythema, coutinue wound care, vancomycin added Full code Lovenox for DVT prophylaxis plan for today iv abx, wound care, lasix Attestations 2 Medical Necessity Statement*: patient need hispitlization, serge iv abx, wound care lasix, for pna, cellultis, sacral dti, dti, fluid overlioad Coding Level of Care Code Acute Code for [facility] Fwd Diagnoses Acute encephalopathy G93.40 Chest pain R07.9 Pneumonia J18.9 Laterality: bilateral Lung location: unspecified part of lung Pneumonia type: due to unspecified organism Dyslipidemia E78.5 Left-sided weakness R53.1 CVA (cerebral vascular accident) I63.9 Lymphedema I89.0 Generalized weakness R53.1 Acute respiratory failure with hypoxia J96.01 Sacral decubitus ulcer, stage III L89.153 Deep tissue injury T14.8XXA Fluid overload E87.70 Cellulitis L03.90
[2023-07-25] MEDS: vancomycin 1,000 MG in sodium chloride 0.9% 250 ML 250 MG IV (12:55)
[2023-07-25] MEDS: FUROsemide 10 mg/mL SDV 4mL 40 MG IVP (12:55)
[2023-07-25] MEDS: cefTRIAXone 1,000 MG in sodium chloride 0.9% (plus) 50 ML 100 MG IV (16:19)
[2023-07-25] MEDS: pantoprazole 40 mg SDV IVP (17:55)
[2023-07-25] MEDS: enoxaparin 40 mg/0.4 mL Syringe SUBCUT (17:56)
[2023-07-25] MEDS: ropinirole 1 mg Tablet 2 MG PO (17:56)
[2023-07-25] MEDS: azithromycin 500 MG in sodium chloride 0.9% 250 ML 250 MG IV (17:57)
[2023-07-25] MEDS: trazodone 100 mg Tablet PO (20:36)
[2023-07-25] MEDS: atorvastatin 40 mg Tablet PO (20:36)
[2023-07-26] VITALS (15 sets, daily range): BP systolic 101–135; BP diastolic 68–79; PULSE 56–88; RESP 16–20; TEMP 36.5–37; O2SAT 93–99
[2023-07-26] MEDS: ipratropium-albuterol 3 mL Neb INHALATION ×6 (00:13→23:57)
[2023-07-26 06:04] LABS: Basophils # 0.1 10^3/uL (0.0-0.1); Basophils % 0.6 %; Eosinophils # 0.3 10^3/uL (0.0-0.8); Eosinophils % 2.6 %; Hematocrit 35.7 % (36-47); Lymphocytes # 2.6 10^3/uL (0.8-4.8); Lymphocytes % 23.4 %; Mean Corpuscular HGB Conc 31.7 g/dL (30-55); Mean Corpuscular Hemoglobin 29.7 pg (27-33); Mean Corpuscular Volume 93.9 fl (85-98); Mean Platelet Volume 10.1 fL (7.4-10.4); Monocytes # 1.1 10^3/uL (0.2-0.9); Monocytes % 10.2 %; Neutrophils % 62.8 %; Nucleated Red Blood Cells % 0 %; Platelet Count 276 10^3/cmm (157-399); Red Cell Distribution Width 14.8 % (12.1-15.1); White Blood Count 10.99 10^3/uL (3.29-11.43)
[2023-07-26] MEDS: vancomycin 1,000 MG in sodium chloride 0.9% 250 ML 250 MG IV (06:10)
[2023-07-26 06:29] LABS: Alanine Aminotransferase 9 U/L (0-33); Albumin Level 2.8 g/dL (3.5-5.2); Alkaline Phosphatase 23 U/L (35-105); Anion Gap 12.5 (5-19); Aspartate Amino Transferase 13 U/L (0-32); Blood Urea Nitrogen 18 mg/dL (8-23); Calcium 8.4 mg/dL (8.5-10.5); Carbon Dioxide 28 mmol/L (22-29); Chloride 104 mmol/L (98-107); Creatinine Clr Calc Pharmacy 61.4142; Globulin 3.9 g/dL (1.3-4.6); Glucose 89 mg/dL (65-115); Magnesium 1.9 mg/dL (1.7-2.3); Osmolality Calculated 293 mOsm/kg (285-295); Phosphorus 3.6 mg/dL (2.5-4.5); Potassium 3.5 mmol/L (3.5-5.1); Sodium 141 mmol/L (136-145); Total Bilirubin 0.3 mg/dL (0.15-1.2); Total Protein 6.7 g/dL (6.6-8.7)
[2023-07-26] MEDS: ferrous sulfate EC 325 mg Tablet PO (08:46)
[2023-07-26] MEDS: aspirin 81 mg EC Tablet PO (08:46)
[2023-07-26] MEDS: ropinirole 1 mg Tablet PO ×2 (08:46→18:10)
[2023-07-26] MEDS: diazePAM 5 mg Tablet PO ×2 (08:47→18:11)
[2023-07-26] MEDS: citalopram 20 mg Tablet PO (08:47)
[2023-07-26] MEDS: metoprolol tartrate 25 mg Tablet 12.5 MG PO ×2 (08:47→18:11)
--- NOTE | 2023-07-26 10:02 | PC.CHAP ---
Pastoral Care Encounter/Spiritual Assessment Type of Contact [] Declined enchilada maker visit [] Patient/Family/Request visit [] Outpatient visit [] Follow-up visit [] Physician referral [] Code/Alert [x] Routine visit [] Staff referral [] Actively dying [] Patient sleeping [x] Family support [] [] Out of room [] Palliative care [] [] Receiving care in room [] Pre-surgical visit [] Trauma [] Long length of stay [] ICU visit [] Other: Relational/Emotional Strength [x] Patient feels connected with others/family/visitors/staff [] Distress [] Loneliness/isolation [] Abandonment Spirituality of Patient [x] Person of Vera [] Attends Yarsanism of their Vera [x] Believes in Prayer [] Reads Bible or Sabianism materials [] There are Spiritual issues to be addressed Ibm Bpm Architect Interventions [x] Prayer [x] Active listening [x] Non-anxious presence [x] Spiritual/emotional support [] Crisis/trauma care [] Spiritual counseling [] Bereavement support [] Provided bereavement packet [] Provided Bible/devotional materials [] Provided toy/stuffed animal, coloring book to patient or family member [] Provided Communion [] Anointing/[place]erry [] Salvation [x] Completed spiritual assessment [] Other: Impact on Illness or Injury [] Angry [] Fearful [] Anxious [] Often cries [] Exhaustion [] Unable to work [] Unable to attend mosque [] Unable to walk/stand [] Unable to read [] Unable to drive [] Unable to eat/drink [] Unable to sleep [] Unable to be with family [] Patient intubated [] Other: Summary Time spent with patient 5 min
--- NOTE | 2023-07-26 11:09 | P.PN_ITS ---
Subjective 2 Subjective: Patient was seen this morning, is at bedside, she is much more alert and awake, she can follow commands, she continues to have lower extremity edema, no fevers overnight, no chills, Vitals/I&O/Wt Last Vital Signs Temp 97.7 F 07/26/23 08:00 Pulse 69 07/26/23 08:00 Resp 18 07/26/23 08:00 BP 135/77 07/26/23 08:00 Pulse Ox 95 07/26/23 08:00 O2 Del Method Room Air 07/26/23 08:00 O2 Flow Rate 2 07/25/23 20:48 07/25/23 07/26/23 07/26/23 22:59 06:59 14:59 Intake Total 780 / 1750 240 / 1990 730 / 730 Output Total 1000 / 1000 600 / 1600 Balance -220 / 750 -360 / 390 730 / 730 Weight last 48 hrs Weight 66.338 kg Weight 63.985 kg Weight 63.957 kg Physical Exam 2 Const: COMMON NORMALS: no acute distress and patient oriented x3 Resp: COMMON NORMALS: normal respiratory effort, No retractions, No use of accessory muscles and clear to auscultation bilaterally AUSCULTATION: clear to auscultation bilaterally Cardio: COMMON NORMALS: regular rate, regular rhythm, S1 normal heart sound present and S2 normal heart sound present RATE: regular rate RHYTHM: r egular rhythm HEART SOUNDS: S1 normal heart sound present and S2 normal heart sound present GI: COMMON NORMALS: Normal to inspection, nondistended, normoactive bowel sounds present and non-tender Extremity: NARRATIVE EXTREMITY EXAM: 1+ pitting edema Neuro: COMMON NORMALS: patient oriented x3 Psych: COMMON NORMALS: mental status grossly normal Data 07/26/23 05:07 07/26/23 05:07 Micro: Microbiology 07/24/23 15:38 Blood Culture - Preliminary Blood NEGATIVE TO DATE 07/24/23 13:47 Blood Culture - Preliminary Blood NEGATIVE TO DATE A&P Assessment and plan (1) Acute encephalopathy: (2) Chest pain: (3) Pneumonia: Qualifiers: Laterality: bilateral Lung location: unspecified part of lung P neumonia type: due to unspecified organism Qualified Code(s): J18.9 - Pneumonia, unspecified organism (4) Dyslipidemia: (5) Left-sided weakness: (6) CVA (cerebral vascular accident): (7) Lymphedema: (8) Generalized weakness: (9) Acute respiratory failure with hypoxia: (10) Sacral decubitus ulcer, stage III: (11) Deep tissue injury: (12) Fluid overload: (13) Cellulitis: (14) CHF exacerbation: Plan Acute hypoxic respiratory failure secondary to pneumonia Plan -Sputum cultures, blood cultures -Continue Rocephin, azithromycin Fluid overload, CHF exacerbation, diastolic -1 dose lasix today, with albumin -Continue DuoNeb -Monitor respiratory status closely Acute encephalopathy, resolving -Etiology likely secondary to pneumonia -Neurochecks, aspiration precautions, stroke scale Chest pain -Serial EKGs, serial troponins, telemetry monitoring -Aspirin, statin History of CVA with left-sided weakness History of anemia stage 2-3 sacral decubitus ulcer, wound care, wet to dry dressing, reposition every 2 hours, consult dietary, consult pt/pt DTI 2 areas, left lower extremity, largest measuring [id number], with surrounding erythema, coutinue wound care, vancomycin added Full code Lovenox for DVT prophylaxis plan for today iv abx, wound care, continue to diurese, Attestations 2 Medical Necessity Statement*: Patient requires hospitalization for pneumonia, encephalopathy, fluid overload requiring diuresis, DTI Diagnoses Acute encephalopathy G93.40 Chest pain R07.9 Pneumonia J18.9 Laterality: bilateral Lung location: unspecified part of lung Pneumonia type: due to unspecified organism Dyslipidemia E78.5 Left-sided weakness R53.1 CVA (cerebral vascular accident) I63.9 Lymphedema I89.0 Generalized weakness R53.1 Acute respiratory failure with hypoxia J96.01 Sacral decubitus ulcer, stage III L89.153 Deep tissue injury T14.8XXA Fluid overload E87.70 Cellulitis L03.90 CHF exacerbation I50.9
[2023-07-26] MEDS: albumin 25 G/100 ML BAG 60 G IV (11:35)
[2023-07-26] MEDS: FUROsemide 10 mg/mL SDV 4mL 40 MG IVP (11:35)
--- NOTE | 2023-07-26 12:43 | PC.SOCIAL ---
Pg 2 IMM Explained to pt Pg 2 IMM. No questions voiced. Provided pt a copy. Initialed, dated, & timed a copy & placed in chart.
[2023-07-26] MEDS: cefTRIAXone 1,000 MG in sodium chloride 0.9% (plus) 50 ML 100 MG IV (15:20)
[2023-07-26] MEDS: azithromycin 500 MG in sodium chloride 0.9% 250 ML 250 MG IV (16:25)
[2023-07-26] MEDS: enoxaparin 40 mg/0.4 mL Syringe SUBCUT (18:10)
[2023-07-26] MEDS: pantoprazole 40 mg SDV IVP (18:10)
[2023-07-26] MEDS: ropinirole 1 mg Tablet 2 MG PO (18:11)
[2023-07-26] MEDS: trazodone 100 mg Tablet PO (21:08)
[2023-07-26] MEDS: atorvastatin 40 mg Tablet PO (21:08)
[2023-07-27] VITALS (10 sets, daily range): BP systolic 109–126; BP diastolic 64–71; PULSE 56–87; RESP 16–20; TEMP 36.6–37.2; O2SAT 89–99
[2023-07-27] MEDS: vancomycin 1,000 MG in sodium chloride 0.9% 250 ML 250 MG IV ×2 (00:59→19:56)
[2023-07-27 03:12] LABS: Basophils # 0.1 10^3/uL (0.0-0.1); Basophils % 0.8 %; Eosinophils # 0.7 10^3/uL (0.0-0.8); Hematocrit 34.8 % (36-47); Lymphocytes # 2.4 10^3/uL (0.8-4.8); Lymphocytes % 25.5 %; Mean Corpuscular HGB Conc 31.6 g/dL (30-55); Mean Corpuscular Hemoglobin 30.1 pg (27-33); Mean Corpuscular Volume 95.1 fl (85-98); Mean Platelet Volume 9.4 fL (7.4-10.4); Monocytes # 0.8 10^3/uL (0.2-0.9); Monocytes % 8.6 %; Neutrophils # 5.38 10^3/uL (1.8-7.7); Neutrophils % 57.7 %; Nucleated Red Blood Cells % 0 %; Platelet Count 232 10^3/cmm (157-399); Red Blood Count 3.66 10^6/uL (3.85-5.65); Red Cell Distribution Width 14.9 % (12.1-15.1); White Blood Count 9.32 10^3/uL (3.29-11.43)
[2023-07-27 03:39] LABS: Alanine Aminotransferase 8 U/L (0-33); Albumin Level 3.1 g/dL (3.5-5.2); Alkaline Phosphatase 21 U/L (35-105); Anion Gap 12.7 (5-19); Aspartate Amino Transferase 11 U/L (0-32); Blood Urea Nitrogen 14 mg/dL (8-23); Calcium 8.3 mg/dL (8.5-10.5); Carbon Dioxide 30 mmol/L (22-29); Chloride 105 mmol/L (98-107); Creatinine Clr Calc Pharmacy 61.4142; Globulin 3.2 g/dL (1.3-4.6); Glucose 95 mg/dL (65-115); Magnesium 1.8 mg/dL (1.7-2.3); Osmolality Calculated 298 mOsm/kg (285-295); Phosphorus 3.8 mg/dL (2.5-4.5); Potassium 3.7 mmol/L (3.5-5.1); Sodium 144 mmol/L (136-145); Total Bilirubin 0.4 mg/dL (0.15-1.2); Total Protein 6.3 g/dL (6.6-8.7)
[2023-07-27] MEDS: metoprolol tartrate 25 mg Tablet 12.5 MG PO ×2 (08:20→18:12)
[2023-07-27] MEDS: ferrous sulfate EC 325 mg Tablet PO (08:20)
[2023-07-27] MEDS: citalopram 20 mg Tablet PO (08:21)
[2023-07-27] MEDS: diazePAM 5 mg Tablet PO (08:21)
[2023-07-27] MEDS: aspirin 81 mg EC Tablet PO (08:21)
[2023-07-27] MEDS: ipratropium-albuterol 3 mL Neb INHALATION ×2 (08:49→19:30)
[2023-07-27] MEDS: cefTRIAXone 1,000 MG in sodium chloride 0.9% (plus) 50 ML 100 MG IV (13:32)
--- NOTE | 2023-07-27 14:58 | P.PN_ITS ---
Subjective 2 Subjective: Patient was seen this morning, she is alert to person, to place, not to time she follows commands she is actually drying and coloring in a coloring broke she has no complaints this morning Vitals/I&O/Wt Last Vital Signs Temp 98.2 F 07/27/23 12:20 Pulse 78 07/27/23 12:20 Resp 17 07/27/23 12:20 BP 109/67 07/27/23 12:20 Pulse Ox 92 07/27/23 12:20 O2 Del Method Nasal Cannula 07/27/23 12:20 O2 Flow Rate 2 07/27/23 08:50 07/26/23 07/27/23 07/27/23 22:59 06:59 14:59 Intake Total 660 / 1730 250 / 1980 1010 / 1010 Output Total 1800 / 1800 600 / 2400 Balance -1140 / -70 -350 / -420 1010 / 1010 Weight last 48 hrs Weight 65.431 kg Weight 66.338 kg Physical Exam 2 Const: COMMON NORMALS: no acute distress Resp: COMMON NORMALS: normal respiratory effort, No retractions, No use of accessory muscles and clear to auscultation bilaterally AUSCULTATION: clear to auscultation bilaterally Cardio: COMMON NORMALS: regular rate, regular rhythm, S1 normal heart sound present and S2 normal heart sound present RATE: regular rate RHYTHM: r egular rhythm HEART SOUNDS: S1 normal heart sound present and S2 normal heart sound present GI: COMMON NORMALS: Normal to inspection, nondistended, normoactive bowel sounds present and non-tender Extremity: NARRATIVE EXTREMITY EXAM: 1+ pitting edema Data 07/27/23 02:53 07/27/23 02:53 A&P Assessment and plan (1) Acute encephalopathy: (2) Chest pain: (3) Pneumonia: Qualifiers: Laterality: bilateral Lung location: unspecified part of lung P neumonia type: due to unspecified organism Qualified Code(s): J18.9 - Pneumonia, unspecified organism (4) Dyslipidemia: (5) Left-sided weakness: (6) CVA (cerebral vascular accident): (7) Lymphedema: (8) Generalized weakness: (9) Acute respiratory failure with hypoxia: (10) Sacral decubitus ulcer, stage III: (11) Deep tissue injury: (12) Fluid overload: (13) Cellulitis: (14) CHF exacerbation: Plan Acute hypoxic respiratory failure secondary to pneumonia Plan -Sputum cultures, blood cultures -Continue Rocephin, azithromycin Fluid overload, CHF exacerbation, diastolic -1 dose lasix today, -Continue DuoNeb -Monitor respiratory status closely Acute encephalopathy, resolving -Etiology likely secondary to pneumonia -Neurochecks, aspiration precautions, stroke scale Chest pain -Serial EKGs, serial troponins, telemetry monitoring -Aspirin, statin History of CVA with left-sided weakness History of anemia stage 2-3 sacral decubitus ulcer, cellulitis, wound care, wet to dry dressing, reposition every 2 hours, consult dietary, consult pt/pt DTI 2 areas, left lower extremity, largest measuring [id number], with surrounding erythema, coutinue wound care, vancomycin added Full code Lovenox for DVT prophylaxis plan for today continue Rocephin, p.o. azithromycin, 1 dose of IV Lasix, continue vancomycin and Attestations 2 Medical Necessity Statement*: Patient requires hospitalization for respiratory failure pneumonia, fluid overload requiring diuresis, cellulitis with DTI requiring IV antibiotics Diagnoses Acute encephalopathy G93.40 Chest pain R07.9 Pneumonia J18.9 Laterality: bilateral Lung location: unspecified part of lung Pneumonia type: due to unspecified organism Dyslipidemia E78.5 Left-sided weakness R53.1 CVA (cerebral vascular accident) I63.9 Lymphedema I89.0 Generalized weakness R53.1 Acute respiratory failure with hypoxia J96.01 Sacral decubitus ulcer, stage III L89.153 Deep tissue injury T14.8XXA Fluid overload E87.70 Cellulitis L03.90 CHF exacerbation I50.9
[2023-07-27] MEDS: azithromycin 250 mg Tablet PO (16:10)
[2023-07-27] MEDS: FUROsemide 10 mg/mL SDV 4mL 40 MG IVP (16:10)
[2023-07-27] MEDS: pantoprazole 40 mg SDV IVP (18:11)
[2023-07-27] MEDS: ropinirole 1 mg Tablet 2 MG PO (18:11)
[2023-07-27] MEDS: enoxaparin 40 mg/0.4 mL Syringe SUBCUT (18:11)
--- NOTE | 2023-07-27 18:37 | PC.NURSE ---
Reyna pulled, and given to nightshift RN d/t awaiting trough.
[2023-07-27 19:43] LABS: Vancomycin Trough 14.4 ug/mL (10-15)
[2023-07-27] MEDS: trazodone 100 mg Tablet PO (22:56)
[2023-07-27] MEDS: atorvastatin 40 mg Tablet PO (22:56)
[2023-07-28] VITALS (16 sets, daily range): BP systolic 101–137; BP diastolic 59–75; PULSE 57–87; RESP 16–18; TEMP 36.7–37.2; O2SAT 92–97; BMI 22.6; BMI 23.3
[2023-07-28] MEDS: ipratropium-albuterol 3 mL Neb INHALATION ×5 (00:53→15:23)
[2023-07-28 04:25] LABS: Basophils # 0.1 10^3/uL (0.0-0.1); Basophils % 0.6 %; Eosinophils # 0.6 10^3/uL (0.0-0.8); Eosinophils % 5.4 %; Hematocrit 38.7 % (36-47); Lymphocytes # 3.4 10^3/uL (0.8-4.8); Lymphocytes % 30.3 %; Mean Corpuscular HGB Conc 31.5 g/dL (30-55); Mean Corpuscular Hemoglobin 29.6 pg (27-33); Mean Corpuscular Volume 93.9 fl (85-98); Mean Platelet Volume 9.9 fL (7.4-10.4); Monocytes # 0.9 10^3/uL (0.2-0.9); Monocytes % 7.6 %; Neutrophils # 6.21 10^3/uL (1.8-7.7); Neutrophils % 55.7 %; Nucleated Red Blood Cells % 0 %; Platelet Count 306 10^3/cmm (157-399); Red Blood Count 4.12 10^6/uL (3.85-5.65); Red Cell Distribution Width 14.7 % (12.1-15.1); White Blood Count 11.16 10^3/uL (3.29-11.43)
[2023-07-28 04:44] LABS: Alanine Aminotransferase 12 U/L (0-33); Albumin Level 3.3 g/dL (3.5-5.2); Alkaline Phosphatase 22 U/L (35-105); Anion Gap 12.9 (5-19); Aspartate Amino Transferase 16 U/L (0-32); Blood Urea Nitrogen 29 mg/dL (8-23); Calcium 8.9 mg/dL (8.5-10.5); Carbon Dioxide 30 mmol/L (22-29); Chloride 98 mmol/L (98-107); Creatinine Clr Calc Pharmacy 61.0555; Globulin 3.7 g/dL (1.3-4.6); Glucose 100 mg/dL (65-115); Osmolality Calculated 290 mOsm/kg (285-295); Phosphorus 3.3 mg/dL (2.5-4.5); Potassium 3.9 mmol/L (3.5-5.1); Sodium 137 mmol/L (136-145); Total Bilirubin 0.5 mg/dL (0.15-1.2)
[2023-07-28] MEDS: ferrous sulfate EC 325 mg Tablet PO (08:32)
[2023-07-28] MEDS: citalopram 20 mg Tablet PO (08:32)
[2023-07-28] MEDS: metoprolol tartrate 25 mg Tablet 12.5 MG PO (08:32)
[2023-07-28] MEDS: aspirin 81 mg EC Tablet PO (08:32)
[2023-07-28] MEDS: ropinirole 1 mg Tablet PO (08:32)
--- NOTE | 2023-07-28 13:18 | P.PN_ITS ---
Subjective 2 Subjective: Patient was seen this morning, is at bedside, she is actually coloring the coloring book, she is on 2 L, continues to have lower extremity edema, she wants me to advance her diet, she is on dysphagia level 4 diet she is wondering if she can have a level 5 diet, Vitals/I&O/Wt Last Vital Signs Temp 98.3 F 07/28/23 08:21 Pulse 74 07/28/23 11:28 Resp 16 07/28/23 11:24 BP 110/66 07/28/23 08:21 Pulse Ox 96 07/28/23 11:24 O2 Del Method Room Air 07/28/23 11:24 O2 Flow Rate 2 07/28/23 08:21 FiO2 2 07/28/23 03:19 07/27/23 07/28/23 07/28/23 22:59 06:59 14:59 Intake Total 930 / 1940 240 / 240 Output Total 2800 / 2800 1000 / 3800 Balance -1870 / -860 -1000 / -1860 240 / 240 Weight last 48 hrs Weight 65.453 kg Weight 63.73 kg Weight 65.431 kg Physical Exam 2 Const: COMMON NORMALS: no acute distress ORIENTATION/CONSCIOUSNESS: Yes awake, Yes oriented to person and Yes oriented to place; not oriented to time Resp: COMMON NORMALS: normal respiratory effort, No retractions and No use of accessory muscles AUSCULTATION: crackles Cardio: COMMON NORMALS: regular rate, regular rhythm, S1 normal heart sound present and S2 normal heart sound present RATE: regular rate RHYTHM: r egular rhythm HEART SOUNDS: S1 normal heart sound present and S2 normal heart sound present GI: COMMON NORMALS: Normal to inspection, nondistended, normoactive bowel sounds present and non-tender Extremity: OTHER: 1+ edema Neuro: SENSORIUM/ORIENTATION: Yes oriented to person, Yes oriented to place and No oriented to time Data 07/28/23 02:39 07/28/23 02:39 A&P Assessment and plan (1) Acute encephalopathy: (2) Chest pain: (3) Pneumonia: Qualifiers: Laterality: bilateral Lung location: unspecified part of lung P neumonia type: due to unspecified organism Qualified Code(s): J18.9 - Pneumonia, unspecified organism (4) Dyslipidemia: (5) Left-sided weakness: (6) CVA (cerebral vascular accident): (7) Lymphedema: (8) Generalized weakness: (9) Acute respiratory failure with hypoxia: (10) Sacral decubitus ulcer, stage III: (11) Deep tissue injury: (12) Fluid overload: (13) Cellulitis: (14) CHF exacerbation: Plan Acute hypoxic respiratory failure secondary to pneumonia Plan -Sputum cultures, blood cultures -De-escalate antibiotics to Augmentin Fluid overload, CHF exacerbation, diastolic -1 dose lasix today, -Continue DuoNeb -Monitor respiratory status closely Acute encephalopathy, resolving -Etiology likely secondary to pneumonia -Neurochecks, aspiration precautions, stroke scale Chest pain -Serial EKGs, serial troponins, telemetry monitoring -Aspirin, statin History of CVA with left-sided weakness History of anemia stage 2-3 sacral decubitus ulcer, cellulitis, wound care, wet to dry dressing, reposition every 2 hours, consult dietary, consult pt/pt DTI 2 areas, left lower extremity, largest measuring [id number], with surrounding erythema, coutinue wound care, vancomycin added Full code Lovenox for DVT prophylaxis plan for today dose of Lasix today, de-escalate to doxycycline and Augmentin Attestations 2 Medical Necessity Statement*: Patient requires hospitalization for fluid overload requiring IV diuresis, respiratory failure pneumonia de-escalate antibiotics likely discharge in next 24 hours Diagnoses Acute encephalopathy G93.40 Chest pain R07.9 Pneumonia J18.9 Laterality: bilateral Lung location: unspecified part of lung Pneumonia type: due to unspecified organism Dyslipidemia E78.5 Left-sided weakness R53.1 CVA (cerebral vascular accident) I63.9 Lymphedema I89.0 Generalized weakness R53.1 Acute respiratory failure with hypoxia J96.01 Sacral decubitus ulcer, stage III L89.153 Deep tissue injury T14.8XXA Fluid overload E87.70 Cellulitis L03.90 CHF exacerbation I50.9
[2023-07-28] MEDS: FUROsemide 10 mg/mL SDV 4mL 40 MG IVP (14:03)
[2023-07-28] MEDS: amoxicillin-clav 875-125 mg Tablet 1 TAB PO (17:02)
[2023-07-28] MEDS: doxycycline 100 mg Tablet PO (17:02)
[2023-07-28] MEDS: ropinirole 1 mg Tablet 2 MG PO (17:02)
[2023-07-28] MEDS: enoxaparin 40 mg/0.4 mL Syringe SUBCUT (17:02)
[2023-07-28] MEDS: pantoprazole DR 40 mg Tablet PO (17:46)
[2023-07-28] MEDS: atorvastatin 40 mg Tablet PO (20:56)
[2023-07-28] MEDS: trazodone 100 mg Tablet PO (20:56)
[2023-07-29] VITALS (10 sets, daily range): BP systolic 100–162; BP diastolic 62–80; PULSE 79–101; RESP 14–19; TEMP 36.6–37.1; O2SAT 90–94
[2023-07-29 06:11] LABS: Basophils # 0.1 10^3/uL (0.0-0.1); Basophils % 0.9 %; Eosinophils % 8.4 %; Hematocrit 42.9 % (36-47); Lymphocytes # 2.7 10^3/uL (0.8-4.8); Lymphocytes % 23.5 %; Mean Corpuscular HGB Conc 32.4 g/dL (30-55); Mean Corpuscular Hemoglobin 29.6 pg (27-33); Mean Corpuscular Volume 91.3 fl (85-98); Mean Platelet Volume 9.6 fL (7.4-10.4); Monocytes # 0.9 10^3/uL (0.2-0.9); Monocytes % 7.9 %; Neutrophils # 6.79 10^3/uL (1.8-7.7); Neutrophils % 58.4 %; Nucleated Red Blood Cells % 0 %; Platelet Count 345 10^3/cmm (157-399); Red Cell Distribution Width 14.5 % (12.1-15.1); White Blood Count 11.61 10^3/uL (3.29-11.43)
[2023-07-29 06:32] LABS: Alanine Aminotransferase 11 U/L (0-33); Albumin Level 3.6 g/dL (3.5-5.2); Alkaline Phosphatase 18 U/L (35-105); Anion Gap 12.5 (5-19); Aspartate Amino Transferase 15 U/L (0-32); Blood Urea Nitrogen 25 mg/dL (8-23); Calcium 8.8 mg/dL (8.5-10.5); Carbon Dioxide 31 mmol/L (22-29); Chloride 97 mmol/L (98-107); Creatinine Clr Calc Pharmacy 59.6294; Globulin 4.1 g/dL (1.3-4.6); Glucose 119 mg/dL (65-115); Osmolality Calculated 290 mOsm/kg (285-295); Potassium 3.5 mmol/L (3.5-5.1); Sodium 137 mmol/L (136-145); Total Bilirubin 0.8 mg/dL (0.15-1.2); Total Protein 7.7 g/dL (6.6-8.7)
[2023-07-29] MEDS: citalopram 20 mg Tablet PO (08:26)
[2023-07-29] MEDS: doxycycline 100 mg Tablet PO ×2 (08:26→17:24)
[2023-07-29] MEDS: amoxicillin-clav 875-125 mg Tablet 1 TAB PO ×2 (08:26→17:24)
[2023-07-29] MEDS: ferrous sulfate EC 325 mg Tablet PO (08:26)
[2023-07-29] MEDS: pantoprazole DR 40 mg Tablet PO (08:26)
[2023-07-29] MEDS: aspirin 81 mg EC Tablet PO (08:26)
[2023-07-29] MEDS: metoprolol tartrate 25 mg Tablet 12.5 MG PO ×2 (08:26→17:24)
[2023-07-29] MEDS: ropinirole 1 mg Tablet PO (08:26)
[2023-07-29] MEDS: ipratropium-albuterol 3 mL Neb INHALATION ×3 (08:32→22:02)
[2023-07-29] MEDS: potassium chloride ER 20 mEq Tablet 40 MEQ PO (10:40)
[2023-07-29] MEDS: flu vacc pf 2023-24 (6 mos+) 60 MCG IM (10:40)
[2023-07-29] MEDS: FUROsemide 10 mg/mL SDV 4mL 40 MG IVP (10:40)
--- NOTE | 2023-07-29 11:50 | P.PN_ITS ---
Subjective 2 Subjective: Patient was seen this morning, she continues to have lower extreme edema and complaints of shortness of breath although she is on room air, she tells me that she has trouble catching her breath, on examination she has 2+ pitting edema we discussed continuing IV diuresis, she is agreeable, at bedside is worried about taking her home, given the risk of readmission, and her concerns of shortness of breath and fluid overload Vitals/I&O/Wt Last Vital Signs Temp 98.1 F 07/29/23 11:34 Pulse 84 07/29/23 11:34 Resp 14 07/29/23 11:34 BP 123/75 07/29/23 11:34 Pulse Ox 93 07/29/23 11:34 O2 Del Method Room Air 07/29/23 11:34 O2 Flow Rate 2 07/29/23 08:00 FiO2 2 07/28/23 03:19 07/28/23 07/29/23 07/29/23 22:59 06:59 14:59 Intake Total 240 / 240 Output Total 1400 / 1400 300 / 1700 Balance -1400 / -1040 -300 / -1340 240 / 240 Weight last 48 hrs Weight 61.825 kg Weight 65.453 kg Weight 63.73 kg Physical Exam 2 Const: COMMON NORMALS: no acute distress and patient oriented x3 Resp: COMMON NORMALS: normal respiratory effort, No retractions and No use of accessory muscles AUSCULTATION: crackles Cardio: COMMON NORMALS: regular rate, regular rhythm, S1 normal heart sound present and S2 normal heart sound present RATE: regular rate RHYTHM: r egular rhythm HEART SOUNDS: S1 normal heart sound present and S2 normal heart sound present GI: COMMON NORMALS: Normal to inspection, nondistended, normoactive bowel sounds present and non-tender Extremity: NARRATIVE EXTREMITY EXAM: 2+ pitting edema Neuro: COMMON NORMALS: patient oriented x3 Psych: COMMON NORMALS: mental status grossly normal Data 07/29/23 05:52 07/29/23 05:52 A&P Assessment and plan (1) Acute encephalopathy: (2) Chest pain: (3) Pneumonia: Qualifiers: Laterality: bilateral Lung location: unspecified part of lung P neumonia type: due to unspecified organism Qualified Code(s): J18.9 - Pneumonia, unspecified organism (4) Dyslipidemia: (5) Left-sided weakness: (6) CVA (cerebral vascular accident): (7) Lymphedema: (8) Generalized weakness: (9) Acute respiratory failure with hypoxia: (10) Sacral decubitus ulcer, stage III: (11) Deep tissue injury: (12) Fluid overload: (13) Cellulitis: (14) CHF exacerbation: Plan Acute hypoxic respiratory failure secondary to pneumonia Plan -Sputum cultures, blood cultures -De-escalate antibiotics to Augmentin Fluid overload, CHF exacerbation, diastolic - 2 doses of IV Lasix today -Continue DuoNeb -Monitor respiratory status closely Acute encephalopathy, resolving -Etiology likely secondary to pneumonia -Neurochecks, aspiration precautions, stroke scale Chest pain -Serial EKGs, serial troponins, telemetry monitoring -Aspirin, statin History of CVA with left-sided weakness History of anemia stage 2-3 sacral decubitus ulcer, cellulitis, wound care, wet to dry dressing, reposition every 2 hours, consult dietary, consult pt/pt DTI 2 areas, left lower extremity, largest measuring [id number], with surrounding erythema, coutinue wound care, vancomycin added Full code Lovenox for DVT prophylaxis plan for today dose of will diurese with Lasix 2 doses of IV Lasix monitor creatinine monitor potassium monitor BMP plan on discharging in the next 24 hours Attestations 2 Medical Necessity Statement*: Patient requires hospitalization for fluid overload requiring IV diuresis Diagnoses Acute encephalopathy G93.40 Chest pain R07.9 Pneumonia J18.9 Laterality: bilateral Lung location: unspecified part of lung Pneumonia type: due to unspecified organism Dyslipidemia E78.5 Left-sided weakness R53.1 CVA (cerebral vascular accident) I63.9 Lymphedema I89.0 Generalized weakness R53.1 Acute respiratory failure with hypoxia J96.01 Sacral decubitus ulcer, stage III L89.153 Deep tissue injury T14.8XXA Fluid overload E87.70 Cellulitis L03.90 CHF exacerbation I50.9
--- NOTE | 2023-07-29 13:20 | PC.SOCIAL ---
IMM Update pg 2 of IMM updated and reviewed w/ patient. Copy provided and copy dated, initialed and placed in chart.
[2023-07-29] MEDS: ropinirole 1 mg Tablet 2 MG PO (17:24)
[2023-07-29] MEDS: enoxaparin 40 mg/0.4 mL Syringe SUBCUT (17:25)
[2023-07-29] MEDS: trazodone 100 mg Tablet PO (21:33)
[2023-07-29] MEDS: atorvastatin 40 mg Tablet PO (21:33)
[2023-07-30 00:38] VITALS: BP 104/69; PULSE 81; RESP 18; TEMP 36.7; O2SAT 91
[2023-07-30] MEDS: FUROsemide 10 mg/mL SDV 4mL 40 MG IVP ×2 (01:27→09:06)
[2023-07-30 04:03] VITALS: BP 165/83; PULSE 71; RESP 17; TEMP 36.5; O2SAT 94
[2023-07-30 05:18] LABS: Basophils # 0.1 10^3/uL (0.0-0.1); Basophils % 1.3 %; Eosinophils # 0.8 10^3/uL (0.0-0.8); Eosinophils % 9.5 %; Hematocrit 43.5 % (36-47); Lymphocytes # 2.6 10^3/uL (0.8-4.8); Lymphocytes % 29.7 %; Mean Corpuscular HGB Conc 32.9 g/dL (30-55); Mean Corpuscular Hemoglobin 30.2 pg (27-33); Mean Corpuscular Volume 91.8 fl (85-98); Mean Platelet Volume 9.7 fL (7.4-10.4); Monocytes # 0.8 10^3/uL (0.2-0.9); Monocytes % 9.1 %; Neutrophils % 49.4 %; Nucleated Red Blood Cells % 0 %; Platelet Count 367 10^3/cmm (157-399); Red Blood Count 4.74 10^6/uL (3.85-5.65); Red Cell Distribution Width 14.6 % (12.1-15.1)
[2023-07-30 05:46] LABS: Alanine Aminotransferase 14 U/L (0-33); Albumin Level 3.6 g/dL (3.5-5.2); Alkaline Phosphatase 23 U/L (35-105); Anion Gap 15.4 (5-19); Aspartate Amino Transferase 18 U/L (0-32); Blood Urea Nitrogen 45 mg/dL (8-23); Calcium 9.6 mg/dL (8.5-10.5); Carbon Dioxide 32 mmol/L (22-29); Chloride 99 mmol/L (98-107); Creatinine Clr Calc Pharmacy 52.1268; Globulin 4.6 g/dL (1.3-4.6); Glucose 121 mg/dL (65-115); Magnesium 2.2 mg/dL (1.7-2.3); Osmolality Calculated 307 mOsm/kg (285-295); Phosphorus 4.8 mg/dL (2.5-4.5); Potassium 4.4 mmol/L (3.5-5.1); Sodium 142 mmol/L (136-145); Total Bilirubin 0.4 mg/dL (0.15-1.2); Total Protein 8.2 g/dL (6.6-8.7)
[2023-07-30 05:56] LABS: NT Pro B Type Natriuretic Pept 341 pg/mL (0-125)
[2023-07-30] MEDS: ipratropium-albuterol 3 mL Neb INHALATION (07:30)
[2023-07-30 07:31] VITALS: PULSE 63; RESP 18; O2SAT 94
[2023-07-30 08:00] VITALS: BP 122/76; PULSE 65; RESP 16; TEMP 36.6; O2SAT 97
[2023-07-30] MEDS: amoxicillin-clav 875-125 mg Tablet 1 TAB PO ×2 (08:21→17:03)
[2023-07-30] MEDS: ropinirole 1 mg Tablet PO (08:21)
[2023-07-30] MEDS: citalopram 20 mg Tablet PO (08:22)
[2023-07-30] MEDS: aspirin 81 mg EC Tablet PO (08:22)
[2023-07-30] MEDS: pantoprazole DR 40 mg Tablet PO (08:22)
[2023-07-30] MEDS: ferrous sulfate EC 325 mg Tablet PO (08:22)
[2023-07-30] MEDS: doxycycline 100 mg Tablet PO ×2 (08:22→17:03)
--- NOTE | 2023-07-30 10:45 | PM.DCS ---
Discharge Providers Date of Admission: 07/24/23 16:10 Date of Discharge: July 30, 2023 Attending Provider at Admission: Carson Tony MD Attending Provider at Discharge: Carson Tony MD Primary Care Provider: Efren Romano MD Diagnoses at Discharge Discharge Diagnosis (1) Acute encephalopathy: Status: Acute (2) Chest pain: Status: Acute (3) Pneumonia: Status: Acute Qualifiers: Laterality: bilateral Lung location: unspecified part of lung Pneumonia type: due to unspecified organism Qualified Code(s): J18.9 - Pneumonia, unspecified organism (4) Dyslipidemia: Status: Acute (5) Left-sided weakness: Status: Chronic (6) CVA (cerebral vascular accident): Status: Chronic (7) Lymphedema: Status: Chronic (8) Generalized weakness: Status: Acute Permanent problem details: Will discharge to longterm facility (9) Acute respiratory failure with hypoxia: Status: Acute (10) Sacral decubitus ulcer, stage III: Status: Acute (11) Deep tissue injury: Status: Acute (12) Fluid overload: Status: Acute (13) Cellulitis: Status: Acute (14) CHF exacerbation: Status: Acute Reason for Visit Reason for Visit: SOB, Cough Hospital Course Hospital Course Doris Clarke is a 73 year old female with a past medical history of CVA, chronic left upper extremity flexion contracture, left-sided weakness, history of chronic anemia, diastolic CHF, history of IVC filter in place, history of left knee abscess with dehiscence, requiring IV antibiotics wound VAC, is on chronic antibiotic suppressive therapy, dyslipidemia, dysphagia, hypertension, lipidemia, is on oxygen at home during the night, who presents [facility], as she tells me that she is having chest pain, and her think she is having a heart attack. She does report a cough, due to her cough, EMS was called out to her home, they found her to be hypoxic placed on 3 L. Currently she denies any chest pain, but did have an earlier, she tells me that she is only here because her wanted her to come to the hospital as he thinks that she was having a heart attack. She is alert to person, not to place, not to time, she thinks it is 5, she can follow some basic commands such as smiling for me, she has a flexion contracture of the left upper extremity, she does have spontaneous movement of bilateral extremity, does have edema bilateral extremities, but does not follow other commands, she does not appear to be short of breath, does not appear to be in respiratory distress, pupils equal round react light no facial droop no slurring of her words, currently encephalopathic Patient was admitted to [facility] for acute hypoxic respiratory failure secondary to pneumonia, requiring IV antibiotics, overall clinically improved, discharged and admitted For diastolic CHF exacerbation, fluid overload requiring IV diuresis during hospitalization, discharged on Lasix 40 mg once daily with potassium replacement as outpatient For acute encephalopathy, likely secondary to pneumonia, resolved on discharge Patient had stage 2-3 sacral decubitus ulcer with surrounding cellulitis received wound care, IV antibiotics, discharged on doxycycline continue offloading, continue daily dressing changes, continue to monitor closely as outpatient Patient also has 2 areas of DTI's, left lower extremity also received IV antibiotics, wound care, discharged with wound care as outpatient through home health care continue to monitor closely Physical Exam Const: COMMON NORMALS: no acute distress and patient oriented x3 Resp: COMMON NORMALS: normal respiratory effort, No retractions, No use of accessory muscles and clear to auscultation bilaterally AUSCULTATION: clear to auscultation bilaterally Cardio: COMMON NORMALS: regular rate, regular rhythm, S1 normal heart sound present and S2 normal heart sound present RATE: regular rate RHYTHM: regular rhythm HEART SOUNDS: S1 normal heart sound present and S2 normal heart sound present GI: COMMON NORMALS: Normal to inspection, nondistended, normoactive bowel sounds present and non-tender Extremity: COMMON NORMALS: no pedal edema Neuro: COMMON NORMALS: patient oriented x3 Psych: COMMON NORMALS: mental status grossly normal Discharge Data Studies Completed and Pending Completed Studies During Hospitalization Category Date Time Status XR chest 1V portable [id number] Stat Exams 07/24/23 13:31 Completed Pending at discharge Category Date Time Status NT Pro B Type Natriuretic Pept QAM Lab 07/31/23 06:00 Ordered NT Pro B Type Natriuretic Pept QAM Lab 08/01/23 06:00 Ordered Sputum Culture and Gram Stain Stat Lab 07/24/23 17:38 Uncollected Laboratory Results WBC 8.70 10^3/uL (3.29-11.43) 07/30/23 04:52 RBC 4.74 10^6/uL (3.85-5.65) 07/30/23 04:52 Hgb 14.30 g/dL (11.27-16.99) 07/30/23 04:52 Hct 43.5 % (36-47) 07/30/23 04:52 MCV 91.8 fl (85-98) 07/30/23 04:52 MCH 30.2 pg (27-33) 07/30/23 04:52 MCHC 32.9 g/dL (30-55) 07/30/23 04:52 RDW 14.6 % (12.1-15.1) 07/30/23 04:52 Plt Count 367 10^3/cmm (157-399) 07/30/23 04:52 MPV 9.7 fL (7.4-10.4) 07/30/23 04:52 Neut % (Auto) 49.4 % 07/30/23 04:52 Lymph % (Auto) 29.7 % 07/30/23 04:52 [place] % (Auto) 9.1 % 07/30/23 04:52 Eos % (Auto) 9.5 % 07/30/23 04:52 Baso % (Auto) 1.3 % 07/30/23 04:52 Neut # (Auto) 4.30 10^3/uL (1.8-7.7) 07/30/23 04:52 Lymph # (Auto) 2.6 10^3/uL (0.8-4.8) 07/30/23 04:52 [place] # (Auto) 0.8 10^3/uL (0.2-0.9) 07/30/23 04:52 Eos # (Auto) 0.8 10^3/uL (0.0-0.8) 07/30/23 04:52 Baso # (Auto) 0.1 10^3/uL (0.0-0.1) 07/30/23 04:52 Nucleated RBC % (auto) 0 % 07/30/23 04:52 Nucleated RBCs # 0.0 /100WBC 07/30/23 04:52 ESR 25 mm/hr (0-15) H 07/25/23 03:02 PT 14.00 SECONDS (12.1-14.9) 07/24/23 13:47 PT 14.50 SECONDS (12.1-14.9) 07/24/23 13:47 INR 1.05 (0.8-1.2) 07/24/23 13:47 INR 1.09 (0.8-1.2) 07/24/23 13:47 Specimen Type Arterial 07/24/23 13:41 Sample Site Radial, right 07/24/23 13:41 ABG pH 7.43 (7.35-7.45) 07/24/23 13:41 ABG pCO2 46.4 mmHg (35-45) H 07/24/23 13:41 ABG pO2 56.4 mmHg (80.0-100.0) L 07/24/23 13:41 ABG PO2/FiO2 Ratio 0 07/24/23 13:41 ABG HCO3 30.6 mmol/L (22-26) H 07/24/23 13:41 ABG Base Excess 5.3 mmol/L (-2.0-2.0) H 07/24/23 13:41 Galen Test Pos 07/24/23 13:41 Hematocrit 41.4 % (37-47) 07/24/23 13:41 Hgb O2 Saturation 87.3 % (95-100) L 07/24/23 13:41 Carboxyhemoglobin 1.8 %THgb (0.4-20.1) 07/24/23 13:41 Methemoglobin 0.6 % (0.4-1.5) 07/24/23 13:41 Total Hemoglobin 13.5 g/dL (12-16) 07/24/23 13:41 O2 Delivery Device Room air 07/24/23 13:41 FiO2 21.0 % 07/24/23 13:41 Tractor Driver ID [place] 07/24/23 13:41 Sodium 142 mmol/L (136-145) 07/30/23 04:52 Potassium 4.4 mmol/L (3.5-5.1) 07/30/23 04:52 Chloride 99 mmol/L (98-107) 07/30/23 04:52 Carbon Dioxide 32 mmol/L (22-29) H 07/30/23 04:52 Anion Gap 15.4 (5-19) 07/30/23 04:52 BUN 45 mg/dL (8-23) H 07/30/23 04:52 Creatinine 0.9 mg/dL (0.5-0.9) 07/30/23 04:52 GFR Calculation Not Reportable 07/30/23 04:52 Glucose 121 mg/dL (65-115) H 07/30/23 04:52 Estimat Average Glucose 100 07/24/23 13:47 Hemoglobin A1c 5.1 % (4.0-6.0) 07/24/23 13:47 Calculated Osmolality 307 mOsm/kg (285-295) H 07/30/23 04:52 Lactic Acid 3.6 mmol/L (0.5-2.2) H 07/24/23 20:52 Lactic Acid (Sepsis) 2.8 mmol/L (0.5-2.2) H 07/24/23 23:56 Calcium 9.6 mg/dL (8.5-10.5) 07/30/23 04:52 Phosphorus 4.8 mg/dL (2.5-4.5) H 07/30/23 04:52 Magnesium 2.2 mg/dL (1.7-2.3) 07/30/23 04:52 Total Bilirubin 0.4 mg/dL (0.15-1.2) 07/30/23 04:52 AST 18 U/L (0-32) 07/30/23 04:52 ALT 14 U/L (0-33) 07/30/23 04:52 Alkaline Phosphatase 23 U/L (35-105) L 07/30/23 04:52 Troponin T Baseline 13 ng/L (0-10) H 07/24/23 20:52 Troponin T 120 Minute 10.90 ng/L (0-10) H 07/24/23 22:47 Delta Troponin T -2.10 ABS# (0-10) L 07/24/23 22:47 Troponin T Hi Sens 6Hr 11.27 ng/L (0-10) H 07/25/23 03:02 Troponin T Hi Sens 6Hr Delta -1.73 ng/L (0-12) L 07/25/23 03:02 C-Reactive Protein 9.9 mg/L (0.0-4.9) H 07/24/23 13:47 NT-Pro-B Natriuret Pep 341 pg/mL (0-125) H 07/30/23 04:52 Total Protein 8.2 g/dL (6.6-8.7) 07/30/23 04:52 Albumin 3.6 g/dL (3.5-5.2) 07/30/23 04:52 Globulin 4.6 g/dL (1.3-4.6) 07/30/23 04:52 Triglycerides 85 mg/dL (0-150) 07/24/23 13:47 Cholesterol 123 mg/dL (0-200) 07/24/23 13:47 LDL Cholesterol, Calc 73 mg/dL (50-129) 07/24/23 13:47 HDL Cholesterol 33 mg/dL (60-100) L 07/24/23 13:47 LDL/HDL Ratio 2.21 RATIO (0.00-3.22) 07/24/23 13:47 Cholesterol/HDL Ratio 3.73 mg/dL (0.0-4.40) 07/24/23 13:47 Procalcitonin 0.08 ng/mL (0-0.5) 07/24/23 13:47 TSH 1.17 uIU/mL (0.27-4.20) 07/24/23 13:47 Urine Color Dark yellow (Yellow) 07/24/23 19:10 Urine Appearance Clear (CLEAR) 07/24/23 19:10 Urine pH 5 (5-7) 07/24/23 19:10 Ur Specific [place] 1.020 (1.005-1.030) 07/24/23 19:10 Urine Protein Neg (Negative) 07/24/23 19:10 Urine Glucose (UA) Norm (Normal) 07/24/23 19:10 Urine Ketones Negative (Negative) 07/24/23 19:10 Urine Blood Neg (Negative) 07/24/23 19:10 Urine Nitrate Negative (Negative) 07/24/23 19:10 Urine Bilirubin Neg (Negative) 07/24/23 19:10 Urine Urobilinogen Norm mg/dL (Negative) 07/24/23 19:10 Ur Leukocyte Esterase Negative (Negative) 07/24/23 19:10 Vancomycin Trough 14.4 ug/mL (10-15) 07/27/23 18:54 Adenovirus (PCR) Not detected (NOT DETECT) 07/24/23 19:10 C. pneumoniae DNA (PCR) Not detected (NOT DETECT) 07/24/23 19:10 Coronavirus 229E (PCR) Not detected (NOT DETECT) 07/24/23 19:10 Human Metapneumovir PCR Not detected (NOT DETECT) 07/24/23 19:10 Influenza A (H1) PCR Not detected (NOT DETECT) 07/24/23 19:10 Influ A (H1/09) PCR Not detected (NOT DETECT) 07/24/23 19:10 Influenza A (H3) PCR Not detected (NOT DETECT) 07/24/23 19:10 Influenza Type A Ag negative (Negative) 07/24/23 13:47 Influenza Type A (PCR) Not detected (NOT DETECT) 07/24/23 19:10 Influenza Type B Ag negative (Negative) 07/24/23 13:47 Influenza Type B (PCR) Not detected (NOT DETECT) 07/24/23 19:10 M. pneumoniae (PCR) Not detected (NOT DETECT) 07/24/23 19:10 Parainfluenza 1 (PCR) Not detected (NOT DETECT) 07/24/23 19:10 Parainfluenza 2 (PCR) Not detected (NOT DETECT) 07/24/23 19:10 Parainfluenza 3 (PCR) Not detected (NOT DETECT) 07/24/23 19:10 Parainfluenza 4 (PCR) Not detected (NOT DETECT) 07/24/23 19:10 RSV Type A (PCR) Not detected (NOT DETECT) 07/24/23 19:10 RSV Type B (PCR) Not detected (NOT DETECT) 07/24/23 19:10 Entero/Rhino (PCR) Not detected (NOT DETECT) 07/24/23 19:10 SARS-CoV-2 (PCR) Not detected (NOT DETECT) 07/24/23 19:10 SARS-CoV-2 Ag (Rapid) negative (Negative) 07/24/23 13:47 Vitals Last Vital Signs Temp 97.9 F 07/30/23 08:00 Pulse 65 07/30/23 08:00 Resp 16 07/30/23 08:00 BP 122/76 07/30/23 08:00 Pulse Ox 97 07/30/23 08:00 O2 Del Method Nasal Cannula 07/30/23 08:00 O2 Flow Rate 2 07/30/23 08:00 FiO2 2 07/28/23 03:19 Discharge Plan Discharge Patient Disposition: Home Health Service Condition: Stable Prescriptions: New amoxicillin-pot clavulanate 875-125 mg Tablet 1 tab PO BID 3 Days Qty: 6 0RF doxycycline monohydrate 100 mg Tablet 100 mg PO BID 3 Days Qty: 6 0RF furosemide [Lasix] 40 mg tablet 40 mg PO DAILY 30 Days Qty: 30 0RF potassium chloride [Klor-Con M20] 20 mEq tablet,ER particles/crystals 20 meq PO DAILY 30 Days Qty: 30 0RF albuterol sulfate 2.5 mg /3 mL (0.083 %) solution for nebulization 2.5 mg inhalation Q6H PRN (Reason: shortness of breath or wheezing) Qty: 75 0RF Continued (DME) woundvac See Rx Instructions .Route .MEDSUPPLY Qty: 1 0RF Rx Instructions: As directed atorvastatin [Lipitor] 40 mg tablet 40 mg PO BEDTIME ropinirole 1 mg tablet See Rx Instructions .ROUTE .COMPLEX Rx Instructions: 1mg po q am and 2mg po qpm tizanidine 4 mg tablet 4 mg PO TID PRN (Reason: Muscle Spasm) citalopram [Celexa] 20 mg tablet 20 mg PO DAILY trazodone 100 mg tablet 100 mg PO BEDTIME ferrous sulfate [Iron (ferrous sulfate)] 325 mg (65 mg iron) Tablet 325 mg PO DAILY oxybutynin chloride 5 mg tablet 5 mg PO BID metoprolol tartrate 25 mg tablet 12.5 mg PO BID tramadol 50 mg Tablet 50 mg PO Q8H PRN (Reason: Pain) amitriptyline 25 mg tablet 25 mg PO BEDTIME diazepam 5 mg tablet 5 mg PO BID acetaminophen 500 mg Tablet 1,000 mg PO Q8H Qty: 0 0RF neomycin-polymyxin B-dexameth 3.5mg/mL-10,000 unit/mL-0.1 % drops,suspension 4 drp ophthalmic (eye) QID PRN (Reason: Inflammation) omeprazole 20 mg capsule,delayed release(DR/EC) 20 mg PO DAILY nystatin 100,000 unit/gram Powder 1 applic TOPICAL DAILY PRN (Reason: Rash) Discontinued nitrofurantoin macrocrystal [Macrodantin] 50 mg Capsule 50 mg PO DAILY Hold Instructions: Resume on 05/04/21. hold until antibiotics finishes furosemide 20 mg tablet 20 mg PO DAILY Discharge Orders: Discharge Order (Routine); Ordered 07/30/23 Ordered By: Carson Tony Referrals: [facility] [Outside] Efren Romano MD [Primary Care Provider] - 08/07/23 10:00 am Discharge Diet: Cardiac Discharge Activity: Resume usual activity Patient Instructions: Opioid Safety Activity Restrictions/Additional Instructions: - For your deep tissue injury, continue wet-to-dry dressing, continue offloading ? Continue wound care ? Continue to monitor closely for syncopal emergency room ?continue Lasix as prescribed Discharge Attestations Time Spent in Discharge Care*: greater than 30 min Status at Discharge: Cognitive status at discharge: mildly impaired cognition, Behavioral status at discharge: cooperative, Quality Metrics Clinical Quality Measures [ No reported AMI, CVA or VTE this stay] Coding Level of Care Code 03698 Total time (in minutes) for Discharge: 45 Diagnoses Acute encephalopathy G93.40 Chest pain R07.9 Pneumonia J18.9 Laterality: bilateral Lung location: unspecified part of lung Pneumonia type: due to unspecified organism Dyslipidemia E78.5 Left-sided weakness R53.1 CVA (cerebral vascular accident) I63.9 Lymphedema I89.0 Generalized weakness R53.1 Acute respiratory failure with hypoxia J96.01 Sacral decubitus ulcer, stage III L89.153 Deep tissue injury T14.8XXA Fluid overload E87.70 Cellulitis L03.90 CHF exacerbation I50.9
[2023-07-30 16:00] VITALS: BP 115/77; PULSE 94; RESP 18; O2SAT 94
[2023-07-30] MEDS: ropinirole 1 mg Tablet 2 MG PO (17:03)
[2023-07-30] MEDS: diazePAM 5 mg Tablet PO (17:03)
[2023-07-30] MEDS: metoprolol tartrate 25 mg Tablet 12.5 MG PO (17:03)
--- NOTE | 2023-07-30 17:56 | PC.NURSE ---
Patients , Mr. Clarke, is very upset that pt has still not been transported home via EMS. It has been explained to him that we have to wait on EMS to arrive to transport pt and they have had several calls preventing them from being able to transport pt at this time. [facility] has been called to check ETA, however, they are unable to provide a time right now as they have been extremely consumed with calls, but they will get here as soon as they can. This was communicated with Mr. 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
== END 2023-07-30 18:22 | disposition home health service (06) | DRG 193 ==
LOC: ER 15:37 → MEDSURG 16:11
PROVIDERS: Admitting Provider Family Medicine; Emergency Provider Emergency Medicine; PCP Family Medicine; Visit Provider Family Medicine
DX: J18.9 Pneumonia, unspecified organism (principal); I50.33 Acute on chronic diastolic (congestive) heart failure; L89.153 Pressure ulcer of sacral region, stage 3; J96.01 Acute respiratory failure with hypoxia; G93.40 Encephalopathy, unspecified; I69.954 Hemiplegia and hemiparesis following unspecified cerebrovascular disease affecting left non-dominant side; L03.317 Cellulitis of buttock; E78.5 Hyperlipidemia, unspecified; I11.0 Hypertensive heart disease with heart failure; Z74.01 Bed confinement status; L89.896 Pressure-induced deep tissue damage of other site; Z95.828 Presence of other vascular implants and grafts
CPT/HCPCS: 36415; 36600; 71045; 80053; 80061; 80202; 81003; 82805; 83036; 83605; 83735; 83880; 84100; 84145; 84443; 84484; 85025; 85610; 85651; 86140; 87040; 87426; 87486; 87581; 87633; 87804; 90471; 90686; 92610; 93005; 94640; 94664; 96365; 96367; 96372; 99285; C9113; J0456; J0696; J1650; J1940; J3370; J7050; P9046; Q0144

== ENCOUNTER 2023-09-17 11:37 | Emergency (ER) | payer MEDICARE, MEDICAID, SELFPAY ==
--- NOTE | 2023-09-17 11:43 | XRR_ITS ---
PROCEDURE INFORMATION: Exam: XR Right Femur Exam date and time: 09/17/2023 11:54 AM Age: 73 years old Clinical indication: Injury or trauma; Fall; Blunt trauma; Thigh or upper leg; Right; Prior surgery; Surgery date: 6+ months; Surgery type: RT femur; Additional info: Fall, right thigh pain TECHNIQUE: Imaging protocol: Radiologic exam of the right femur. Views: 2 views. COMPARISON: CR XR hip RT 2-3V wo/w pel* [id number] 09/17/2023 11:50 AM FINDINGS: Bones/joints: ORIF of a mid shaft femoral fracture. The intramedullary alda is intact. Areas of lucency at the healed fracture site appear benign. Degenerative changes of the hip and knee. Soft tissues: Unremarkable. Vasculature: Arterial calcifications. XR/XR femur RT min 2V* [id number] IMPRESSION: Old fracture. No acute injury.
--- NOTE | 2023-09-17 11:44 | XRR_ITS ---
PROCEDURE INFORMATION: Exam: XR Right Hip Exam date and time: 09/17/2023 11:50 AM Age: 73 years old Clinical indication: Injury or trauma; Fall; Blunt trauma (contusions or hematomas); Hip; Prior surgery; Surgery date: 6+ months; Surgery type: Right femur; Additional info: Hip pain TECHNIQUE: Imaging protocol: Radiologic exam of the right hip. Views: 1 view hip with pelvis when performed. COMPARISON: CT angio chest w abd pel w con 04/15/2021 4:47 PM FINDINGS: Bones/joints: Mild/moderate articular surface narrowing and spurring. ORIF of a proximal junctional 3rd femoral fracture. Intact hardware. Arterial calcifications. No acute fracture. Soft tissues: Unremarkable. XR/XR hip RT 2-3V wo/w pel* [id number] IMPRESSION: No acute findings.
[2023-09-17 11:45] VITALS: BP 152/77; PULSE 96; RESP 16; TEMP 36.7; O2SAT 92
--- NOTE | 2023-09-17 11:48 | W.ED.FALL ---
HPI - Fall General: Chief Complaint: Fall Stated Complaint: Fall Time Seen by Provider: 09/17/23 11:40 History of Present Illness: 73-year-old female who is bedbound status post stroke and left hemiplegia, hypertension and CHF who presents to the emergency room by ambulance after she fell out of bed this morning. She is having pain in her right mid thigh. No other injury. She did not hit her head. She is complaining of no other pain. No altered mental status. She answers questions appropriately. No reports of fever or cough. She has chronic sores on her left leg. Has been was changing dressing on this whenever she fell apparently Review of Systems Narrative: Constitutional symptoms: Negative except as documented in HPI. Skin symptoms: Negative except as documented in HPI. Eye symptoms: Negative except as documented in HPI. ENMT symptoms: Negative except as documented in HPI. Respiratory symptoms: Negative except as documented in HPI. Cardiovascular symptoms: Negative except as documented in HPI. Gastrointestinal symptoms: Negative except as documented in HPI. Genitourinary symptoms: Negative except as documented in HPI. Musculoskeletal symptoms: Negative except as documented in HPI. Neurologic symptoms: Negative except as documented in HPI. Psychiatric symptoms: Negative except as documented in HPI. Endocrine symptoms: Negative except as documented in HPI. 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 Presence of IVC filter Lymphedema Venous stasis dermatitis Chronic anemia Chronic kidney disease, stage II (mild) Dyslipidemia Hypertension Left-sided weakness CVA (cerebral vascular accident) Surgical History History of hip surgery H/O shoulder surgery History of hysterectomy S/P cholecystectomy Family History Other CAD (coronary artery disease) Hypertension Stroke Social History Smoking and tobacco/nicotine status: never used tobacco/nicotine Alcohol intake: never Substance/Drug Use: never Household members: spouse Housing: House Physical Exam Narrative: EXAM NARRATIVE: General: Alert, no acute distress. Skin: warm and dry Head: Normocephalic Neck: Trachea midline Eye: Extraocular movements are intact. Ears, nose, mouth and throat: Oral mucosa moist Respiratory: Respirations are non-labored Musculoskeletal: No obvious deformity or bruising. She points to mid thigh as the location of her pain. Neurological: Alert. She has contractured left hand. This is her baseline apparently there is no other new deficits. Psychiatric: Cooperative, appropriate mood & affect. Course Vital Signs: Vital signs: Vital Signs Temperature 98.1 F 09/17/23 11:45 Pulse Rate 96 09/17/23 11:45 Respiratory Rate 16 09/17/23 11:45 Blood Pressure 152/77 09/17/23 11:45 Pulse Oximetry 92 09/17/23 11:45 Oxygen Delivery Me thod Nasal Cannula 09/17/23 11:45 Oxygen Flow Rate 2 09/17/23 11:45 MDM - Fall Medical Decision Making Pain in right thigh. X-rays were ordered. X-ray of the pelvis shows no acute fractures. X-ray of the right hip and femur shows no acute fractures. She has a shaft running the entire length of her femur. There is an old healing midshaft fracture. Nothing appears acute. This was reviewed and interpreted by myself the emergency room physician. I also reviewed the radiology report. Lab Data Radiology Impressions Femur X-Ray 09/17/23 11:43 IMPRESSION: Old fracture. No acute injury. Hip/Pelvis X-Ray 09/17/23 11:44 IMPRESSION: No acute findings. All radiology interpretation(s) finalized by discharge Other Data Assessment and plan: - Discharged home - Discussed plan with patient. Answered any questions. - Evaluation and treatment of this problem were appropriate in the emergency setting. Discharge Plan Discharge Patient Disposition: Home Clinical Impression: Accidental fall from bed, Acute pain of right thigh Condition: Stable Prescriptions: No Action (DME) woundvac See Rx Instructions .Route .MEDSUPPLY Qty: 1 0RF Rx Instructions: As directed atorvastatin [Lipitor] 40 mg tablet 40 mg PO BEDTIME ropinirole 1 mg tablet See Rx Instructions .ROUTE .COMPLEX Rx Instructions: 1mg po q am and 2mg po qpm tizanidine 4 mg tablet 4 mg PO TID PRN (Reason: Muscle Spasm) citalopram [Celexa] 20 mg tablet 20 mg PO DAILY trazodone 100 mg tablet 100 mg PO BEDTIME ferrous sulfate [Iron (ferrous sulfate)] 325 mg (65 mg iron) Tablet 325 mg PO DAILY oxybutynin chloride 5 mg tablet 5 mg PO BID metoprolol tartrate 25 mg tablet 12.5 mg PO BID tramadol 50 mg Tablet 50 mg PO Q8H PRN (Reason: Pain) amitriptyline 25 mg tablet 25 mg PO BEDTIME diazepam 5 mg tablet 5 mg PO BID acetaminophen 500 mg Tablet 1,000 mg PO Q8H Qty: 0 0RF neomycin-polymyxin B-dexameth 3.5mg/mL-10,000 unit/mL-0.1 % drops,suspension 4 drp ophthalmic (eye) QID PRN (Reason: Inflammation) omeprazole 20 mg capsule,delayed release(DR/EC) 20 mg PO DAILY nystatin 100,000 unit/gram Powder 1 applic TOPICAL DAILY PRN (Reason: Rash) albuterol sulfate 2.5 mg /3 mL (0.083 %) solution for nebulization 2.5 mg inhalation Q6H PRN (Reason: shortness of breath or wheezing) Qty: 75 0RF Discharge Orders: Discharge ED (Routine); Ordered 09/17/23 Ordered By: Selena Moscoso Referrals: Efren Romano MD [Primary Care Provider] - (You have been screened and evaluated and felt safe for discharge. Health conditions do change or evolve sometimes and as such it is important that you follow up with your Primary Doctor to be re checked, 3-5 days is a general good time frame for follow up. You are always welcome to return to the ED for re assessment if your symptoms are worsening or you have new concerns) Patient Instructions: Fall Prevention for Older Adults (ED), Pain Management Coding Level of Care Code ED Director Of Sustainability Programs for Martín Curiel
--- NOTE | 2023-09-17 14:11 | PC.NURSE ---
discharge delayed due to waiting on ambulance ride.
[2023-09-17 18:36] VITALS: BP 148/82; PULSE 97; RESP 16; TEMP 36.7; O2SAT 94
== END 2023-09-17 18:37 | disposition home or self-care (01) ==
PROVIDERS: Emergency Provider Emergency Medicine; PCP Family Medicine
DX: M79.651 Pain in right thigh (principal); E78.5 Hyperlipidemia, unspecified; I13.0 Hypertensive heart and chronic kidney disease with heart failure and stage 1 through stage 4 chronic kidney disease, or unspecified chronic kidney disease; N18.2 Chronic kidney disease, stage 2 (mild); I50.30 Unspecified diastolic (congestive) heart failure; Z86.73 Personal history of transient ischemic attack (TIA), and cerebral infarction without residual deficits
CPT/HCPCS: 73502; 73552; 99284

== ENCOUNTER 2023-09-18 11:11 | Emergency (ER) | payer MEDICARE, MEDICAID, SELFPAY ==
[2023-09-18] VITALS (8 sets, daily range): BP systolic 118–149; BP diastolic 63–93; PULSE 73–107; RESP 20; TEMP 37; O2SAT 92–98; BMI 17.7
--- NOTE | 2023-09-18 11:43 | XRR_ITS ---
PROCEDURE INFORMATION: Exam: XR Left Femur Exam date and time: 09/18/2023 11:49 AM Age: 73 years old Clinical indication: Injury or trauma; Fall; Blunt trauma; Thigh or upper leg; Left TECHNIQUE: Imaging protocol: Radiologic exam of the left femur. Views: 2 views. COMPARISON: CT femur LT w con [id number] 04/15/2021 4:52 PM FINDINGS: Bones/joints: Osteopenia. [id number] degenerative change of the left hip. Mild degenerative change left sacroiliac joint. Distal left femoral fixation plate with transfixing screws. 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 Soft tissues: Vascular calcifications noted in the soft tissues. XR/XR femur LT min 2V* [id number] IMPRESSION: Impacted fracture of the proximal left tibial plateau. See left knee views for further description. Osteopenia. Degenerative change of the left hip with no acute left hip fracture.
--- NOTE | 2023-09-18 11:43 | XRR_ITS ---
PROCEDURE INFORMATION: Exam: XR Left Knee Exam date and time: 09/18/2023 11:55 AM Age: 73 years old Clinical indication: Injury or trauma; Fall; Blunt trauma; Knee; Left TECHNIQUE: Imaging protocol: Radiologic exam of the left knee. Views: 3 views. COMPARISON: CR XR knee LT 1-2V [id number] 01/03/2021 9:44 AM FINDINGS: Bones/joints: Comparison 01/03/2021 with no change in distal femoral side fixation plate with transfixing screws. Osteopenia is present. Interval appearance of comminuted fracture of the tibial plateau extending across medial and lateral aspects with component of impaction. Severe degenerative tricompartmental degenerative changes present. Vascular graft is also present in the medial soft tissues. Soft tissues: Normal. No joint effusion evident. XR/XR knee LT 3V* [id number] IMPRESSION: Impacted fracture of the tibial plateau. Osteopenia, marked degenerative change and distal femoral fixation again noted.
--- NOTE | 2023-09-18 11:46 | ED_ITS ---
HPI - Extremity Problem 2 General: Chief complaint: Extremity Problem,Nontraumatic Stated complaint: Leg pain Time Seen by Provider: 09/18/23 11:17 Source: patient Mode of arrival: EMS History of Present Illness: 73-year-old female who presents to the e mergency room with her complaining of swelling and ecchymosis on the left knee. She was here yesterday and was seen after a fall x-ray of the right knee was negative. Today she is complaining of pain and swelling into the left knee. She has some chronic ulcers on the lateral aspect of the knee that are resolved from an orthopedic surgery that was done a few years ago that recently opened up inferiorly she has significant ecchymosis. No other falls since she was seen yesterday. She did not strike her head no loss consciousness. MD Complaint: extremity swelling Onset (ago): day(s) (1) Pain Consistency: constant Location: left and knee Quality: aching Relieving factors: nothing Exacerbating factors: nothing Associated symptoms: Deny arthralgias, chest pain, fever(s), myalgias, rash or short of breath Review of Systems 2 Const: Denies: fever(s) or chills Card: Denies: chest pain Resp: Denies: dyspnea GI: Denies: abdominal pain : Denies: dysuria, urinary frequency or urinary urgency Musc: Denies: neck pain or back pain Skin/Breast: Denies: rash PFSH ED 2 PFSH: Medical History DVT prophylaxis Dysphagia Pneumonia Sepsis Wound of left lower extremity Fracture of lateral malleolus of left fibula Adult BMI 40.0-44.9 kg/sq m Anemia UTI (urinary tract infection) Diastolic CHF Supracondylar fracture of left femur Fracture of distal end of femur Chronic antibiotic suppression Has been taking nitrofurantoin for last 6 months as per the Chronic anticoagulation Coumadin 2 and 3mg daily depending on INR 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 Presence of IVC filter Lymphedema Venous stasis dermatitis Chronic anemia Chronic kidney disease, stage II (mild) Dyslipidemia Hypertension Left-sided weakness CVA (cerebral vascular accident) Surgical History History of hip surgery H/O shoulder surgery History of hysterectomy S/P cholecystectomy Family History Other CAD (coronary artery disease) Hypertension Stroke Social History Smoking and tobacco/nicotine status: never used tobacco/nicotine Alcohol intake: never Substance/Drug Use: never Household members: spouse Housing: House Physical Exam 2 Const: GENERAL APPEARANCE: cooperative and comfortable O RIENTATION/CONSCIOUSNESS: Yes awake HENMT: COMMON NORMALS: normocephalic, atraumatic and hearing grossly normal bilaterally HEAD & SCALP: normocephalic and atraumatic Resp: COMMON NORMALS: normal respiratory effort, No retractions, No use of accessory muscles and clear to auscultation bilaterally AUSCULTATION: clear to auscultation bilaterally Cardio: COMMON NORMALS: regular rate, regular rhythm and No murmurs present (Cardio) RATE: regular rate RHYTHM: regular rhythm GI: COMMON NORMALS: Soft to palpation and No hepatosplenomegaly present A USCULTATION: Yes normoactive bowel sounds PALPATION: Yes Soft to palpation, No Tenderness to palpation present (GI), No Guarding due to palpation present (GI) and Yes No hepatosplenomegaly present Extremity: OTHER: Significant swelling and edema and ecchymosis in the left proximal tibia anteriorly large amount of swelling painful to touch localized edema. Skin: COMMON NORMALS: no rashes or lesions noted GENERAL SKIN EXAM: no rashes or lesions noted Course 2 Vital Signs: Vital signs: Vital Signs Temperature 98.6 F 09/18/23 11:12 Pulse Rate 107 H 09/18/23 11:12 Respiratory Rate 20 H 09/18/23 11:12 Blood Pressure 125/93 09/18/23 11:12 Pulse Oximetry 94 09/18/23 11:12 Oxygen Delivery Me thod Nasal Cannula 09/18/23 11:12 Oxygen Flow Rate 3 09/18/23 11:12 MDM - Extremity (Nontraumatic) Medical Decision Making Pt has L tibial platue w displacement. Pt has significnat osteoporosis, Neither pt or the wishes to proceed with surgical treatment. The has been main caregive and is comfortable with caring for her. Discussed with Dr. Degroot she recommends a Pedro brace. Will d/c home with pain meds nad follow up with ortho clinic. Medical Records I reviewed the patient's medical records. Lab Data I reviewed the patient's lab results. 09/18/23 13:26 09/18/23 13:26 Radiology Impressions Femur X-Ray 09/18/23 11:43 IMPRESSION: Impacted fracture of the proximal left tibial plateau. See left knee views for further description. Osteopenia. Degenerative change of the left hip with no acute left hip fracture. Knee X-Ray 09/18/23 11:43 IMPRESSION: Impacted fracture of the tibial plateau. Osteopenia, marked degenerative change and distal femoral fixation again noted. Laboratory Results WBC 11.10 10^3/uL (3.29-11.43) 09/18/23 13: RBC 3.14 10^6/uL (3.85-5.65) L 09/18/23 13:26 Hgb 9.50 g/dL (11.27-16.99) L 09/18/23 13:26 Hct 29.6 % (36-47) L 09/18/23 13:26 MCV 94.3 fl (85-98) 09/18/23 13:26 MCH 30.3 pg (27-33) 09/18/23 13:26 MCHC 32.1 g/dL (30-55) 09/18/23 13: RDW 14.8 % (12.1-15.1) 09/18/23 13: Plt Count 201 10^3/cmm (157-399) 09/18/23 13:26 MPV 9.8 fL (7.4-10.4) 09/18/23 13:26 Neut % (Auto) 80.9 % 09/18/23 13:26 Lymph % (Auto) 11.0 % 09/18/23 13:26 [place] % (Auto) 7.0 % 09/18/23 13:26 Eos % (Auto) 0.2 % 09/18/23 13: Baso % (Auto) 0.4 % 09/18/23 13: Neut # (Auto) 8.98 10^3/uL (1.8-7.7) H 09/18/23 13:26 Lymph # (Auto) 1.2 10^3/uL (0.8-4.8) 09/18/23 13:26 [place] # (Auto) 0.8 10^3/uL (0.2-0.9) 09/18/23 13:26 Eos # (Auto) 0.0 10^3/uL (0.0-0.8) 09/18/23 13:26 Baso # (Auto) 0.0 10^3/uL (0.0-0.1) 09/18/23 13:26 Nucleated RBC % (auto) 0 % 09/18/23 13:26 Nucleated RBCs # 0.0 /100WBC 09/18/23 13:26 Sodium 142 mmol/L (136-145) 09/18/23 13:26 Potassium 4.7 mmol/L (3.5-5.1) 09/18/23 13:26 Chloride 103 mmol/L (98-107) 09/18/23 13:26 Carbon Dioxide 32 mmol/L (22-29) H 09/18/23 13:26 Anion Gap 11.7 (5-19) 09/18/23 13:26 BUN 19 mg/dL (8-23) 09/18/23 13:26 Creatinine 0.6 mg/dL (0.5-0.9) 09/18/23 13:26 GFR Calculation Not Reportable 09/18/23 13:26 Glucose 143 mg/dL (65-115) H 09/18/23 13:26 Calculated Osmolality 299 mOsm/kg (285-295) H 09/18/23 13:26 Calcium 9.0 mg/dL (8.5-10.5) 09/18/23 13:26 Total Bilirubin 1.0 mg/dL (0.15-1.2) 09/18/23 13:26 AST 22 U/L (0-32) 09/18/23 13:26 ALT 25 U/L (0-33) 09/18/23 13:26 Alkaline Phosphatase 24 U/L (35-105) L 09/18/23 13:26 Total Protein 7.0 g/dL (6.6-8.7) 09/18/23 13:26 Albumin 3.2 g/dL (3.5-5.2) L 09/18/23 13:26 Globulin 3.8 g/dL (1.3-4.6) 09/18/23 13:26 All radiology interpretation(s) finalized by discharge Discharge Plan Discharge Patient Disposition: Home Clinical Impression: Fracture of left tibial plateau, Osteoporosis Condition: Stable Prescriptions: New hydrocodone-acetaminophen 5-325 mg tablet 1 tab PO Q6H PRN (Reason: pain) Qty: 25 0RF No Action (DME) woundvac See Rx Instructions .Route .MEDSUPPLY Qty: 1 0RF Rx Instructions: As directed atorvastatin [Lipitor] 40 mg tablet 40 mg PO BEDTIME ropinirole 1 mg tablet See Rx Instructions .ROUTE .COMPLEX Rx Instructions: 1mg po q am and 2mg po qpm tizanidine 4 mg tablet 4 mg PO TID PRN (Reason: Muscle Spasm) citalopram [Celexa] 20 mg tablet 20 mg PO DAILY trazodone 100 mg tablet 100 mg PO BEDTIME ferrous sulfate [Iron (ferrous sulfate)] 325 mg (65 mg iron) Tablet 325 mg PO DAILY oxybutynin chloride 5 mg tablet 5 mg PO BID metoprolol tartrate 25 mg tablet 12.5 mg PO BID tramadol 50 mg Tablet 50 mg PO Q8H PRN (Reason: Pain) amitriptyline 25 mg tablet 25 mg PO BEDTIME diazepam 5 mg tablet 5 mg PO BID acetaminophen 500 mg Tablet 1,000 mg PO Q8H Qty: 0 0RF neomycin-polymyxin B-dexameth 3.5mg/mL-10,000 unit/mL-0.1 % drops,suspension 4 drp ophthalmic (eye) QID PRN (Reason: Inflammation) omeprazole 20 mg capsule,delayed release(DR/EC) 20 mg PO DAILY nystatin 100,000 unit/gram Powder 1 applic TOPICAL DAILY PRN (Reason: Rash) albuterol sulfate 2.5 mg /3 mL (0.083 %) solution for nebulization 2.5 mg inhalation Q6H PRN (Reason: shortness of breath or wheezing) Qty: 75 0RF Discharge Orders: Discharge ED (Routine); Ordered 09/18/23 Ordered By: Raul Vieyra Referrals: Efren Romano MD [Primary Care Provider] - Discharge Diet: Usual diet Patient Instructions: Opioid Safety, Pain Management Activity Restrictions/Additional Instructions: Thank you for choosing [facility] for your healthcare needs today. Please realize this is an emergency room and that we are providing you with a medical screening exam and this may not be complete and all inclusive of all the testing and or work up that you may need to determine your ailment or severity of your illness. It is very important that you follow up as instructed or that you return to the Emergency Department should you have concerns or if your condition changes or worsens in any way. You are seen today for complaint of left leg pain. You have a significant tibial plateau fracture (lower part of the knee joint). We discussed treatment options and you had stated you did not wish to have surgery and wanted to treat conservatively. We reviewed the case with the on-call orthopedist she recommends a particular type of brace which has been applied to your knee you can use the hydrocodone for pain as needed elevate is much as possible. dining room manager will make arrangements for you to follow-up in the orthopedic clinic return if you have further problems. Coding Level of Care Code ED [employer] for Martín Curiel
--- NOTE | 2023-09-18 13:00 | CT_ITS ---
WS: [id number] CT LEFT KNEE, NONCONTRAST HISTORY: tibial platue fx Technique: All [facility] scans at [facility] use at least one of these dose optimization techniques: automated exposure control; mA and/or kV adjustment per patient size (includes targeted exams where dose is matched to clinical indication); or iterative reconstruction. DLP: 432.77 mGy.cm COMPARISON: Radiographs 09/18/2023. Prior CT 04/15/2021 Status post plate and screw fixation of the distal LEFT femur. Severe osteopenia. Acute slightly impa cted and displaced fracture involving the tibial plateau. Fracture extends completely across the tibi al plateau and into the tibial metaphysis. Fracture is by approximately 8 mm. Severe narrow ing of the medial and lateral joint spaces. Fibular head is intact. Severe loss of the normal cortex involving the distal femur. There is incomplete healing of the fract ure in the distal femur. Lucency around several of the screws suggesting there may be loosening. Soft tissue scar formation along the medial knee. Soft tissue edema. There is a more focal dense hugo ection along the medial knee consistent with a hematoma at the site of the fracture. IMPRESSION: 1. Impacted mildly displaced tibial plateau fracture with extension into the metaphysis. 2. Severe osteopenia. 3. Moderate size hematoma along the medial knee joint at the site of the fracture. 4. Prior plate and screw fixation distal femur fracture. Fracture appears incompletely healed. There is osteopenia.
[2023-09-18 13:32] LABS: Basophils % 0.4 %; Eosinophils % 0.2 %; Hematocrit 29.6 % (36-47); Lymphocytes # 1.2 10^3/uL (0.8-4.8); Mean Corpuscular HGB Conc 32.1 g/dL (30-55); Mean Corpuscular Hemoglobin 30.3 pg (27-33); Mean Corpuscular Volume 94.3 fl (85-98); Mean Platelet Volume 9.8 fL (7.4-10.4); Monocytes # 0.8 10^3/uL (0.2-0.9); Neutrophils # 8.98 10^3/uL (1.8-7.7); Neutrophils % 80.9 %; Nucleated Red Blood Cells % 0 %; Platelet Count 201 10^3/cmm (157-399); Red Blood Count 3.14 10^6/uL (3.85-5.65); Red Cell Distribution Width 14.8 % (12.1-15.1)
[2023-09-18 13:52] LABS: Alanine Aminotransferase 25 U/L (0-33); Albumin Level 3.2 g/dL (3.5-5.2); Alkaline Phosphatase 24 U/L (35-105); Anion Gap 11.7 (5-19); Aspartate Amino Transferase 22 U/L (0-32); Blood Urea Nitrogen 19 mg/dL (8-23); Carbon Dioxide 32 mmol/L (22-29); Chloride 103 mmol/L (98-107); Creatinine Clr Calc Pharmacy 54.9113; Globulin 3.8 g/dL (1.3-4.6); Glucose 143 mg/dL (65-115); Osmolality Calculated 299 mOsm/kg (285-295); Potassium 4.7 mmol/L (3.5-5.1); Sodium 142 mmol/L (136-145)
[2023-09-18] MEDS: ondansetron 4 MG Tablet PO (22:05)
[2023-09-18] MEDS: HYDROcodone-acetaminophen 5-325 mg Tablet 1 TAB PO (22:05)
--- NOTE | 2023-09-20 12:20 | DCPLANNER ---
Called Ortho and spoke with Jewell, Jewell stated she would contact the patient and arrange an appointment date and time.
== END 2023-09-18 22:00 | disposition home or self-care (01) ==
PROVIDERS: Emergency Provider Family Medicine; PCP Family Medicine
DX: S82.142A Displaced bicondylar fracture of left tibia, initial encounter for closed fracture (principal); M81.0 Age-related osteoporosis without current pathological fracture; I13.0 Hypertensive heart and chronic kidney disease with heart failure and stage 1 through stage 4 chronic kidney disease, or unspecified chronic kidney disease; N18.2 Chronic kidney disease, stage 2 (mild); I50.9 Heart failure, unspecified; E78.5 Hyperlipidemia, unspecified; Z86.73 Personal history of transient ischemic attack (TIA), and cerebral infarction without residual deficits; W19.XXXA Unspecified fall, initial encounter
CPT/HCPCS: 36415; 73552; 73562; 73700; 80053; 85025; 97760; 99284; L1812; Q0162

== ENCOUNTER 2023-09-26 08:44 | Emergency (ER) | payer MEDICARE, MEDICAID, SELFPAY ==
[2023-09-26] VITALS (10 sets, daily range): BP systolic 141–192; BP diastolic 72–102; PULSE 71–96; RESP 18–22; TEMP 36.8; O2SAT 94–96; BMI 20.9
--- NOTE | 2023-09-26 09:12 | XR_ITS ---
WS: [id number] XR knee LT 3V* [id number] REASON FOR EXAM: trauma FINDINGS: Plate and screw fixation of previous distal left femur fracture which shows evidence of healing and i s stable compared to 09/18/2023. Impaction fracture of the medial and lateral tibial plateau again noted and unchanged compared to 08/26. XR/XR knee LT 3V* [id number] IMPRESSION: Stable abnormal left knee as above.
--- NOTE | 2023-09-26 09:17 | ED_ITS ---
HPI - Extremity Problem 2 General: Chief complaint: Extremity Injury, Lower Stated complaint: left leg pain/swelling Time Seen by Provider: 09/26/23 08:47 Source: patient Mode of arrival: ambulatory History of Present Illness: 73-year-old female who presents to the e mergency room with complaints of swelling and hematoma in her leg. On 423 she fell was seen in the emergency room at that time she is complaining mostly of right leg pain right knee pain x- rays were unremarkable she returned on 424 complaining of left knee pain with swelling and ecchymosis. She had a significantly displaced tibial plateau fracture at that time. I had seen the patient then. We consulted Dr. Carey who is on-call and she recommended transfer for surgery because of the extent of the fracture and the severe osteoporosis if the patient wished surgery. The patient previously had a femur fracture that she had quite a bit of difficulty recovering from and still has some wound problems after several years they have become chronic. She is nonambulatory her is her main caregiver and uses a Sergey lift. Given all that and current injury the at the time stated he did not want to pursue surgical treatment. We had offered him placement in the longterm for her because of significant care needs and he declined and wanted to go home. Yesterday they called the orthopedic office stating he could not manage her care and wanted to pursue surgery but could not get her to the office for her follow-up visit. He states he was advised to come to the emergency room by ambulance this morning and she could be admitted for surgery. No or in the course of these discussions was Dr. Carey brought into the conversation unfortunately. Complaint: joint swelling and joint pain Onset (ago): minute(s) Pain Consistency: constant Location: left Relieving factors: nothing Exacerbating factors: nothing Associated symptoms: Deny chest pain, fever(s) or rash Review of Systems 2 Const: Denies: fever(s) or chills Card: Denies: chest pain Resp: Denies: dyspnea GI: Denies: abdominal pain : Denies: dysuria, urinary frequency or urinary urgency Musc: Denies: neck pain or back pain Skin/Breast: Denies: rash PFSH ED 2 PFSH: Medical History DVT prophylaxis Dysphagia Pneumonia Sepsis Wound of left lower extremity Fracture of lateral malleolus of left fibula Adult BMI 40.0-44.9 kg/sq m Anemia UTI (urinary tract infection) Diastolic CHF Supracondylar fracture of left femur Fracture of distal end of femur Chronic antibiotic suppression Has been taking nitrofurantoin for last 6 months as per the Chronic anticoagulation Coumadin 2 and 3mg daily depending on INR 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 Presence of IVC filter Lymphedema Venous stasis dermatitis Chronic anemia Chronic kidney disease, stage II (mild) Dyslipidemia Hypertension Left-sided weakness CVA (cerebral vascular accident) Surgical History History of hip surgery H/O shoulder surgery History of hysterectomy S/P cholecystectomy Family History Other CAD (coronary artery disease) Hypertension Stroke Social History Smoking and tobacco/nicotine status: never used tobacco/nicotine Alcohol intake: never Substance/Drug Use: never Household members: spouse Housing: House Physical Exam 2 Const: COMMON NORMALS: no acute distress GENERAL APPEARANCE: cooperative and comfortable ORIENTATION/CONSCIOUSNESS: Yes awake, Yes oriented to person, Yes oriented to place and Yes oriented to time HENMT: COMMON NORMALS: normocephalic, atraumatic and hearing grossly normal bilaterally HEAD & SCALP: normocephalic and atraumatic Resp: COMMON NORMALS: normal respiratory effort, No retractions, No use of accessory muscles and clear to auscultation bilaterally AUSCULTATION: clear to auscultation bilaterally Cardio: COMMON NORMALS: regular rate, regular rhythm and No murmurs present (Cardio) RATE: regular rate RHYTHM: regular rhythm GI: COMMON NORMALS: Soft to palpation and No hepatosplenomegaly present A USCULTATION: Yes normoactive bowel sounds PALPATION: Yes Soft to palpation, No Tenderness to palpation present (GI), No Guarding due to palpation present (GI) and Yes No hepatosplenomegaly present Extremity: COMMON NORMALS: normal to inspection, capillary refill normal, no clubbing, cyanosis or edema, no calf tenderness and no pedal edema Neuro: SENSORIUM/ORIENTATION: Yes oriented to person, Yes oriented to place and Yes oriented to time Skin: COMMON NORMALS: no rashes or lesions noted GENERAL SKIN EXAM: no rashes or lesions noted Course 2 Vital Signs: Vital signs: Vital Signs Temperature 98.2 F 09/26/23 08:48 Pulse Rate 73 09/26/23 10:30 Respiratory Rate 20 H 09/26/23 08:48 Blood Pressure 143/72 09/26/23 10:30 Pulse Oximetry 96 09/26/23 10:30 Oxygen Delivery Me thod Room Air 09/26/23 10:30 MDM - Extremity (Nontraumatic) Medical Decision Making Patient was initially seen and declined referral for possible surgical repair because she was nonambulatory now with the significant hematoma that is developed as she has developed fracture blisters. I reviewed the case Dr. Orozco he concurs surgery at this point not advised. If they still wanted to pursue surgical option when the swelling is gone down that would be a potential. However both Dr. Degroot and Dr. Orozco had felt that it would need to be referred to [facility] or another tertiary care center. However even that option is not likely as she is nonambulatory now and surgical repair of this would be extremely difficult and would not increase her function in any way. Medical Records I reviewed the patient's medical records. Lab Data I reviewed the patient's lab results. 09/26/23 10:40 09/26/23 10:40 Radiology Impressions Knee X-Ray 09/26/23 09:12 IMPRESSION: Stable abnormal left knee as above. Laboratory Results WBC 9.62 10^3/uL (3.29-11.43) 09/26/23 10:40 RBC 2.80 10^6/uL (3.85-5.65) L 09/26/23 10:40 Hgb 8.40 g/dL (11.27-16.99) L 09/26/23 10:40 Hct 27.6 % (36-47) L 09/26/23 10:40 MCV 98.6 fl (85-98) H 09/26/23 10:40 MCH 30.0 pg (27-33) 09/26/23 10:40 MCHC 30.4 g/dL (30-55) 09/26/23 10:40 RDW 15.5 % (12.1-15.1) H 09/26/23 10:40 Plt Count 370 10^3/cmm (157-399) 09/26/23 10:40 MPV 9.0 fL (7.4-10.4) 09/26/23 10:40 Neut % (Auto) 55.0 % 09/26/23 10:40 Lymph % (Auto) 28.0 % 09/26/23 10:40 [place] % (Auto) 9.7 % 09/26/23 10:40 Eos % (Auto) 5.1 % 09/26/23 10:40 Baso % (Auto) 0.8 % 09/26/23 10:40 Neut # (Auto) 5.30 10^3/uL (1.8-7.7) 09/26/23 10:40 Lymph # (Auto) 2.7 10^3/uL (0.8-4.8) 09/26/23 10:40 [place] # (Auto) 0.9 10^3/uL (0.2-0.9) 09/26/23 10:40 Eos # (Auto) 0.5 10^3/uL (0.0-0.8) 09/26/23 10:40 Baso # (Auto) 0.1 10^3/uL (0.0-0.1) 09/26/23 10:40 Nucleated RBC % (auto) 0 % 09/26/23 10:40 Nucleated RBCs # 0.0 /100WBC 09/26/23 10:40 All radiology interpretation(s) finalized by discharge Discharge Plan Discharge Patient Disposition: Home Clinical Impression: Lymphedema, Closed fracture of left tibial plateau, Osteoporosis, Blister over site of fracture of bone Condition: Stable Prescriptions: New mupirocin 2 % ointment 1 applic topical DAILY Qty: 50 0RF No Action (DME) woundvac See Rx Instructions .Route .MEDSUPPLY Qty: 1 0RF Rx Instructions: As directed atorvastatin [Lipitor] 40 mg tablet 40 mg PO BEDTIME ropinirole 1 mg tablet See Rx Instructions .ROUTE .COMPLEX Rx Instructions: 1mg po q am and 2mg po qpm tizanidine 4 mg tablet 4 mg PO TID PRN (Reason: Muscle Spasm) citalopram [Celexa] 20 mg tablet 20 mg PO QAM trazodone 100 mg tablet 100 mg PO BEDTIME ferrous sulfate [Iron (ferrous sulfate)] 325 mg (65 mg iron) Tablet 325 mg PO DAILY oxybutynin chloride 5 mg tablet 5 mg PO BID metoprolol tartrate 25 mg tablet 12.5 mg PO BID amitriptyline 25 mg tablet 25 mg PO BEDTIME diazepam 5 mg tablet 5 mg PO BID omeprazole 20 mg capsule,delayed release(DR/EC) 20 mg PO DAILY nystatin 100,000 unit/gram Powder 1 applic TOPICAL DAILY PRN (Reason: Rash) hydrocodone-acetaminophen 5-325 mg tablet 1 tab PO Q6H PRN (Reason: pain) Qty: 25 0RF albuterol sulfate 2.5 mg /3 mL (0.083 %) solution for nebulization 2.5 mg inhalation Q6H PRN (Reason: shortness of breath or wheezing) Qty: 75 0RF promethazine-DM 6.25-15 mg/5 mL syrup 5 ml PO DAILY PRN (Reason: Cough) nitrofurantoin macrocrystal 50 mg capsule 50 mg PO DAILY potassium chloride 20 mEq tablet,ER particles/crystals 20 meq PO DAILY furosemide 20 mg tablet 20 mg PO DAILY acetaminophen 500 mg tablet 1,000 mg PO Q8H PRN (Reason: Pain) Discharge Orders: Discharge ED (Routine); Ordered 09/26/23 Ordered By: Raul Vieyra Referrals: Efren Romano MD [Primary Care Provider] - Discharge Diet: Usual diet Discharge Activity: Limit activity as instructed Patient Instructions: Opioid Safety, Pain Management Activity Restrictions/Additional Instructions: Thank you for choosing [facility] for your healthcare needs today. Please realize this is an emergency room and that we are providing you with a medical screening exam and this may not be complete and all inclusive of all the testing and or work up that you may need to determine your ailment or severity of your illness. It is very important that you follow up as instructed or that you return to the Emergency Department should you have concerns or if your condition changes or worsens in any way. You are seen today for concerns over the swelling in blisters over the left knee fracture. We consulted orthopedics and they reviewed your x-rays they do not recommend surgery at this time. We had recommended consideration of longterm placements which you have declined. If you change your mind at any point return to the emergency room we can reevaluate or talk your primary care doctor they can discuss other options. Coding Level of Care Code ED [employer] Operator for Martín Curiel
[2023-09-26 10:47] LABS: Basophils # 0.1 10^3/uL (0.0-0.1); Basophils % 0.8 %; Eosinophils # 0.5 10^3/uL (0.0-0.8); Eosinophils % 5.1 %; Hematocrit 27.6 % (36-47); Lymphocytes # 2.7 10^3/uL (0.8-4.8); Mean Corpuscular HGB Conc 30.4 g/dL (30-55); Mean Corpuscular Volume 98.6 fl (85-98); Monocytes # 0.9 10^3/uL (0.2-0.9); Monocytes % 9.7 %; Nucleated Red Blood Cells % 0 %; Platelet Count 370 10^3/cmm (157-399); Red Cell Distribution Width 15.5 % (12.1-15.1); White Blood Count 9.62 10^3/uL (3.29-11.43)
[2023-09-26 11:10] LABS: Alanine Aminotransferase 7 U/L (0-33); Alkaline Phosphatase 27 U/L (35-105); Anion Gap 11.6 (5-19); Aspartate Amino Transferase 10 U/L (0-32); Blood Urea Nitrogen 18 mg/dL (8-23); Carbon Dioxide 30 mmol/L (22-29); Chloride 108 mmol/L (98-107); Creatinine Clr Calc Pharmacy 58.4991; Globulin 4.1 g/dL (1.3-4.6); Glucose 97 mg/dL (65-115); Osmolality Calculated 302 mOsm/kg (285-295); Potassium 4.6 mmol/L (3.5-5.1); Sodium 145 mmol/L (136-145); Total Bilirubin 0.6 mg/dL (0.15-1.2); Total Protein 7.1 g/dL (6.6-8.7)
--- NOTE | 2023-09-26 12:00 | PC.NURSE ---
PT DC INSTRUCTIONS WENT OVER WITH PT AND PT SPOUSE. CURRENTLY WAITING ON MEDICAID AMBULANCE RIDE.
--- NOTE | 2023-09-26 13:10 | PC.NURSE ---
PT SPOUSE STATES HE IS GOING TO LEAVE TO GO TO PHARMACY AND THEN HEAD HOME.
== END 2023-09-26 17:32 | disposition home or self-care (01) ==
PROVIDERS: Emergency Provider Family Medicine; PCP Family Medicine
DX: I89.0 Lymphedema, not elsewhere classified (principal); M81.0 Age-related osteoporosis without current pathological fracture; S82.142A Displaced bicondylar fracture of left tibia, initial encounter for closed fracture; I13.0 Hypertensive heart and chronic kidney disease with heart failure and stage 1 through stage 4 chronic kidney disease, or unspecified chronic kidney disease; N18.2 Chronic kidney disease, stage 2 (mild); I50.30 Unspecified diastolic (congestive) heart failure; Z86.73 Personal history of transient ischemic attack (TIA), and cerebral infarction without residual deficits; W19.XXXA Unspecified fall, initial encounter
CPT/HCPCS: 36415; 73562; 80053; 85025; 99284

== ENCOUNTER 2023-10-17 09:25 | Emergency (ER) | payer MEDICARE, MEDICAID, SELFPAY ==
[2023-10-17 09:28] VITALS: BP 143/106; PULSE 90; RESP 16; TEMP 37.3; O2SAT 91; BMI 25.8
--- NOTE | 2023-10-17 10:13 | CT_ITS ---
WS: [id number] CT LEFT KNEE WITH CONTRAST HISTORY: Open wound. Recent tibial plateau fracture. Technique: All CT scans at [facility] use at least one of these dose optimization techniques: automated exposure control; mA and/or kV adjustment per patient size (includes targeted exams where dose is matched to clinical indication); or iterative reconstruction. DLP: 487.41 mGy.cm COMPARISON: 09/18/2023 There is a complex soft tissue mass along the medial proximal tibia extending along a tract superfici ally where there may be a small ulceration. This collection measures transversely by 10 cm, AP by 2.9 cm and over a length of 8.4 cm. There is mild heterogeneity. No fluid-filled center. This mass was a lso described on the 09/18/2023 consistent with a hematoma. This mass has moderately improved in size although now does extend along the tract superficially. There is no air along the tract. There is mil d diffuse soft tissue edema surrounding the knee. Reidentified is a slightly depressed complex tibial plateau fracture. Prior fracture repair of the di stal femur with plate and screw fixation is unchanged. No new fracture. No changes of osteomyelitis. CT/CT knee LT w con [id number] IMPRESSION: 1. Complex fluid collection along the medial proximal tibia is reidentified an d moderately improved in size since 09/18/2023. This is thought to be related to a posttraumatic hematoma. 2. Differential would include phlegmon. There is no drainable collection. This is complex material with mild diffuse enhancement. 3. No osteomyelitis. 4. Known, complex depressed tibial plateau fracture.
--- NOTE | 2023-10-17 10:16 | W.ED.EXTPRO ---
HPI - Extremity Problem General: Chief complaint: Extremity Problem,Nontraumatic Stated complaint: extremity pain, abcess Time Seen by Provider: 10/17/23 10:05 Source: patient Mode of arrival: ambulatory Limitations: no limitations History of Present Illness: 73-year-old female who injured her left leg roughly a month ago she did have a tibial plateau at that time but decided she did not want to have surgery she been in a brace she is now has an open wound posterior aspect of that need it has been draining and bleeding. She is bedbound they have no home health states that he does get around with a [employer] lift. She denies any fever she has had some increased pain. Associated symptoms: Deny chest pain, fever(s) or rash Review of Systems Const: Denies: fever(s), chills, body aches or change in appetite ENMT: Denies: throat pain or dental pain Card: Denies: chest pain Resp: Denies: dyspnea GI: Denies: abdominal pain, nausea, vomiting or diarrhea Musc: Reports: extremity pain and extremity swelling; Denies: neck pain or back pain Skin/Breast: Reports: erythema; Denies: rash Neuro: Denies: headache(s) PFSH ED PFSH: Medical History DVT prophylaxis Dysphagia Pneumonia Sepsis Wound of left lower extremity Fracture of lateral malleolus of left fibula Adult BMI 40.0-44.9 kg/sq m Anemia UTI (urinary tract infection) Diastolic CHF Supracondylar fracture of left femur Fracture of distal end of femur Chronic antibiotic suppression Has been taking nitrofurantoin for last 6 months as per the Chronic anticoagulation Coumadin 2 and 3mg daily depending on INR 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 Presence of IVC filter Lymphedema Venous stasis dermatitis Chronic anemia Chronic kidney disease, stage II (mild) Dyslipidemia Hypertension Left-sided weakness CVA (cerebral vascular accident) Surgical History History of hip surgery H/O shoulder surgery History of hysterectomy S/P cholecystectomy Family History Other CAD (coronary artery disease) Hypertension Stroke Social History Smoking and tobacco/nicotine status: never used tobacco/nicotine Alcohol intake: never Substance/Drug Use: never Household members: spouse Housing: House Physical Exam Const: COMMON NORMALS: patient oriented x3 GENERAL APPEARANCE: ill appearing and frail appearing HENMT: COMMON NORMALS: normocephalic and atraumatic HEAD & SCALP: normocephalic and atraumatic Eye: COMMON NORMALS: Equal, round and reactive pupils present and EOMs intact bilaterally PUPIL: Yes Equal, round and reactive pupils present Neck/C-Spine: COMMON NORMALS: full ROM and supple Chest: COMMONS NORMALS: normal inspection of the chest Resp: COMMON NORMALS: normal respiratory effort Cardio: COMMON NORMALS: regular rate, regular rhythm and No murmurs present (Cardio) RATE: regular rate RHYTHM: regular rhythm Extremity: NARRATIVE EXTREMITY EXAM: Swelling noted to left knee she does have a open wound roughly 3 cm some slight drainage posterior aspect of the right knee. Neuro: COMMON NORMALS: patient oriented x3, moves all extremities and no focal motor deficits Psych: COMMON NORMALS: mental status grossly normal, Normal thought process present and cooperative THOUGHT PROCESS: Normal thought process present Skin: COMMON NORMALS: no rashes or lesions noted and no wounds GENERAL SKIN EXAM: no rashes or lesions noted Course Vital Signs: Vital signs: Vital Signs Temperature 99.1 F 10/17/23 09:28 Pulse Rate 86 10/17/23 14:35 Respiratory Rate 16 10/17/23 14:35 Blood Pressure 143/106 10/17/23 13:17 Pulse Oximetry 95 10/17/23 14:35 Oxygen Delivery Me thod Room Air 10/17/23 14:35 MDM - Extremity (Nontraumatic) Medical Decision Making Patient presents here with a wound to left lower leg is likely her pressure wound from the knee immobilizer she has had a tibial plateau fracture she has been seen here before and has been supposed to follow-up with orthopedics about believes she is seeing orthopedics. White count CT showed no acute findings the hematoma is improved initially is try to get patient set up for senior care placement and then they had refused I went back and spoke to her and and states that he does not want to go to senior care that he can treat the wound has been treated at home. Had offered admission as well and he states that he would not do anything differently here he told me he did not want to see Dr. Aurelio Medina if the orthopedics as well. I had asked patient's what she wanted to do as well and she states that she does not want to go to senior care she does not want to go to be admitted to the hospital she wants to go home they understands the risk and they signed out AGAINST MEDICAL ADVICE. Lab Data 10/17/23 10:24 10/17/23 10:[address] 10/17/23 10:13 IMPRESSION: 1. Complex fluid collection along the medial proximal tibia is reidentified and moderately improved in size since 09/18/2023. This is thought to be related to a posttraumatic hematoma. 2. Differential would include phlegmon. There is no drainable collection. This is complex material with mild diffuse enhancement. 3. No osteomyelitis. 4. Known, complex depressed tibial plateau fracture. Laboratory Results WBC 8.04 10^3/uL (3.29-11.43) 10/17/23 10:24 RBC 3.64 10^6/uL (3.85-5.65) L 10/17/23 10:24 Hgb 10.70 g/dL (11.27-16.99) L 10/17/23 10:24 Hct 35.0 % (36-47) L 10/17/23 10:24 MCV 96.2 fl (85-98) 10/17/23 10:24 MCH 29.4 pg (27-33) 10/17/23 10:24 MCHC 30.6 g/dL (30-55) 10/17/23 10:24 RDW 15.2 % (12.1-15.1) H 10/17/23 10:24 Plt Count 271 10^3/cmm (157-399) 10/17/23 10:24 MPV 9.3 fL (7.4-10.4) 10/17/23 10:24 Neut % (Auto) 61.6 % 10/17/23 10:24 Lymph % (Auto) 23.1 % 10/17/23 10:24 [place] % (Auto) 10.4 % 10/17/23 10:24 Eos % (Auto) 3.5 % 10/17/23 10:24 Baso % (Auto) 0.9 % 10/17/23 10:24 Neut # (Auto) 4.95 10^3/uL (1.8-7.7) 10/17/23 10:24 Lymph # (Auto) 1.9 10^3/uL (0.8-4.8) 10/17/23 10:24 [place] # (Auto) 0.8 10^3/uL (0.2-0.9) 10/17/23 10:24 Eos # (Auto) 0.3 10^3/uL (0.0-0.8) 10/17/23 10:24 Baso # (Auto) 0.1 10^3/uL (0.0-0.1) 10/17/23 10:24 Nucleated RBC % (auto) 0 % 10/17/23 10:24 Nucleated RBCs # 0.0 /100WBC 10/17/23 10:24 ESR 29 mm/hr (0-15) H 10/17/23 10:24 Sodium 140 mmol/L (136-145) 10/17/23 10:24 Potassium 4.4 mmol/L (3.5-5.1) 10/17/23 10:24 Chloride 104 mmol/L (98-107) 10/17/23 10:24 Carbon Dioxide 29 mmol/L (22-29) 10/17/23 10:24 Anion Gap 11.4 (5-19) 10/17/23 10:24 BUN 15 mg/dL (8-23) 10/17/23 10:24 Creatinine 0.5 mg/dL (0.5-0.9) 10/17/23 10:24 GFR Calculation Not Reportable 10/17/23 10:24 Glucose 109 mg/dL (65-115) 10/17/23 10:24 Calculated Osmolality 291 mOsm/kg (285-295) 10/17/23 10:24 Calcium 8.7 mg/dL (8.5-10.5) 10/17/23 10:24 Total Bilirubin 0.6 mg/dL (0.15-1.2) 10/17/23 10:24 AST 11 U/L (0-32) 10/17/23 10:24 ALT 6 U/L (0-33) 10/17/23 10:24 Alkaline Phosphatase 41 U/L (35-105) 05/23/24 10:24 C-Reactive Protein 14.7 mg/L (0.0-4.9) H 10/17/23 10:24 Total Protein 7.3 g/dL (6.6-8.7) 10/17/23 10:24 Albumin 2.9 g/dL (3.5-5.2) L 10/17/23 10:24 Globulin 4.4 g/dL (1.3-4.6) 10/17/23 10:24 All radiology interpretation(s) finalized by discharge Discharge Plan Discharge Patient Disposition: Left Against Medical Advice Clinical Impression: Closed fracture of tibial plateau, Pressure ulcer Condition: Stable Prescriptions: No Action (DME) woundvac See Rx Instructions .Route .MEDSUPPLY Qty: 1 0RF Rx Instructions: As directed atorvastatin [Lipitor] 40 mg tablet 40 mg PO BEDTIME ropinirole 1 mg tablet See Rx Instructions .ROUTE .COMPLEX Rx Instructions: 1mg po q am and 2mg po qpm tizanidine 4 mg tablet 4 mg PO TID PRN (Reason: Muscle Spasm) citalopram [Celexa] 20 mg tablet 20 mg PO QAM trazodone 100 mg tablet 100 mg PO BEDTIME ferrous sulfate [Iron (ferrous sulfate)] 325 mg (65 mg iron) Tablet 325 mg PO DAILY oxybutynin chloride 5 mg tablet 5 mg PO BID metoprolol tartrate 25 mg tablet 12.5 mg PO BID amitriptyline 25 mg tablet 25 mg PO BEDTIME diazepam 5 mg tablet 5 mg PO BID omeprazole 20 mg capsule,delayed release(DR/EC) 20 mg PO DAILY nystatin 100,000 unit/gram Powder 1 applic TOPICAL DAILY PRN (Reason: Rash) hydrocodone-acetaminophen 5-325 mg tablet 1 tab PO Q6H PRN (Reason: pain) Qty: 25 0RF albuterol sulfate 2.5 mg /3 mL (0.083 %) solution for nebulization 2.5 mg inhalation Q6H PRN (Reason: shortness of breath or wheezing) Qty: 75 0RF promethazine-DM 6.25-15 mg/5 mL syrup 5 ml PO DAILY PRN (Reason: Cough) nitrofurantoin macrocrystal 50 mg capsule 50 mg PO DAILY potassium chloride 20 mEq tablet,ER particles/crystals 20 meq PO DAILY furosemide 20 mg tablet 20 mg PO DAILY acetaminophen 500 mg tablet 1,000 mg PO Q8H PRN (Reason: Pain) mupirocin 2 % ointment 1 applic topical DAILY Qty: 50 0RF Referrals: Efren Romano MD [Primary Care Provider] - Coding Level of Care Code ED Printing Press Machinist for Martín Curiel
[2023-10-17 10:26] VITALS: BP 143/106; PULSE 88; RESP 16; O2SAT 94
[2023-10-17 10:44] LABS: Basophils # 0.1 10^3/uL (0.0-0.1); Basophils % 0.9 %; Eosinophils # 0.3 10^3/uL (0.0-0.8); Eosinophils % 3.5 %; Lymphocytes # 1.9 10^3/uL (0.8-4.8); Lymphocytes % 23.1 %; Mean Corpuscular HGB Conc 30.6 g/dL (30-55); Mean Corpuscular Hemoglobin 29.4 pg (27-33); Mean Corpuscular Volume 96.2 fl (85-98); Mean Platelet Volume 9.3 fL (7.4-10.4); Monocytes # 0.8 10^3/uL (0.2-0.9); Monocytes % 10.4 %; Neutrophils # 4.95 10^3/uL (1.8-7.7); Neutrophils % 61.6 %; Nucleated Red Blood Cells % 0 %; Platelet Count 271 10^3/cmm (157-399); Red Blood Count 3.64 10^6/uL (3.85-5.65); Red Cell Distribution Width 15.2 % (12.1-15.1); White Blood Count 8.04 10^3/uL (3.29-11.43)
[2023-10-17 11:04] LABS: Erythrocyte Sedimentation Rate 29 mm/hr (0-15)
--- NOTE | 2023-10-17 11:07 | PC.NURSE ---
Assumed care from Aleksandra Krishnamurthy RN at this time.
[2023-10-17 11:36] LABS: Alanine Aminotransferase 6 U/L (0-33); Albumin Level 2.9 g/dL (3.5-5.2); Alkaline Phosphatase 41 U/L (35-105); Anion Gap 11.4 (5-19); Aspartate Amino Transferase 11 U/L (0-32); Blood Urea Nitrogen 15 mg/dL (8-23); C Reactive Protein 14.7 mg/L (0.0-4.9); Calcium 8.7 mg/dL (8.5-10.5); Carbon Dioxide 29 mmol/L (22-29); Chloride 104 mmol/L (98-107); Creatinine Clr Calc Pharmacy 63.8809; Globulin 4.4 g/dL (1.3-4.6); Glucose 109 mg/dL (65-115); Osmolality Calculated 291 mOsm/kg (285-295); Potassium 4.4 mmol/L (3.5-5.1); Sodium 140 mmol/L (136-145); Total Bilirubin 0.6 mg/dL (0.15-1.2); Total Protein 7.3 g/dL (6.6-8.7)
[2023-10-17] MEDS: iohexol 350 mg/mL 500 mL Btl (per mL) IV (12:10)
[2023-10-17 13:17] VITALS: BP 143/106; PULSE 85; O2SAT 100
--- NOTE | 2023-10-17 14:25 | DCPLANNER ---
message sent to ortho for er f/u
--- NOTE | 2023-10-17 14:29 | DCPLANNER ---
message sent to wound care for er f/u
[2023-10-17 14:35] VITALS: PULSE 86; RESP 16; O2SAT 95
--- NOTE | 2023-10-17 15:03 | PC.NURSE ---
At time of leaving, patient's wound was placed in new bandages per instruction of Dr Bird. Patient was then assisted into private vehicle without incident, and both patient and instructed to call fire department for lift assistance. Patient and verbalized understanding.
[2023-10-18 06:03] LABS: Bacillus cereus group Not Detected (NOT DETECT); Bacillus subtillis group Not Detected (NOT DETECT); Corynebacterium Not Detected (NOT DETECT); Cutibacterium acnes (P.acnes) Not Detected (NOT DETECT); Enterococcus Not Detected (NOT DETECT); Enterococcus faecalis Not Detected (NOT DETECT); Enterococcus faecium Not Detected (NOT DETECT); Lactobacillus species Not Detected (NOT DETECT); Listeria Not Detected (NOT DETECT); Listeria monocytogenes Not Detected (NOT DETECT); Micrococcus Not Detected (NOT DETECT); Pan Candida Not Detected (NOT DETECT); Pan Gram-Negative Not Detected (NOT DETECT); Staphylococcus epidermidis Not Detected (NOT DETECT); Staphylococcus lugdunensis Not Detected (NOT DETECT); Staphylococcus species Detected (NOT DETECT); Streptococcus agalactiae Not Detected (NOT DETECT); Streptococcus anginosus group Not Detected (NOT DETECT); Streptococcus pneumoniae Not Detected (NOT DETECT); Streptococcus pyogenes Not Detected (NOT DETECT); Streptococcus species Not Detected (NOT DETECT); mecA Detected (NOT DETECT); mecC Not Detected (NOT DETECT)
--- NOTE | 2023-10-18 06:26 | PC.NURSE ---
This nurse called pt per MD orders to inform them that they could come back to the ER to be admitted to the hospital or follow up with PCP.
== END 2023-10-17 14:37 | disposition left against medical advice (07) ==
PROVIDERS: Emergency Provider Emergency Medicine; PCP Family Medicine
DX: S82.142A Displaced bicondylar fracture of left tibia, initial encounter for closed fracture (principal); L89.899 Pressure ulcer of other site, unspecified stage; Z53.29 Procedure and treatment not carried out because of patient's decision for other reasons; I13.0 Hypertensive heart and chronic kidney disease with heart failure and stage 1 through stage 4 chronic kidney disease, or unspecified chronic kidney disease; N18.2 Chronic kidney disease, stage 2 (mild); I50.30 Unspecified diastolic (congestive) heart failure; E78.5 Hyperlipidemia, unspecified; Z86.73 Personal history of transient ischemic attack (TIA), and cerebral infarction without residual deficits; Z74.01 Bed confinement status; X58.XXXA Exposure to other specified factors, initial encounter
CPT/HCPCS: 36415; 73701; 80053; 85025; 85651; 86140; 87040; 87077; 87150; 87186; 87205; 99285; Q9967

== ENCOUNTER 2023-10-18 10:19 | Inpatient (IN) | payer MEDICARE, MEDICAID, SELFPAY ==
[2023-10-18] VITALS (11 sets, daily range): BP systolic 100–150; BP diastolic 64–107; PULSE 73–99; RESP 16–20; TEMP 36.7–37.3; O2SAT 91–98; BMI 27.7
--- NOTE | 2023-10-18 10:29 | W.ED.GENADLT ---
HPI - General Adult General: Chief complaint: Wound/Laceration Stated complaint: left leg pain Time Seen by Provider: 10/18/23 10:21 Source: patient and EMS Mode of arrival: EMS Limitations: no limitations History of Present Illness: 73-year-old female who had a history of a fall 1 month ago and had a tibial plateau fracture she did initially refuse surgery had seen her yesterday she is now has an open wound to the knee could be a pressure ulcer from wearing the knee brace. I was going to admit her yesterday but she had signed out AMA we did have a blood culture come back positive we will call her so patient came back. She has no new complaints she denies any fever she still having drainage from the wound. Associated symptoms: Deny chest pain, dyspnea, headache(s), nausea, rash or vomiting Review of Systems Const: Denies: fever(s), chills, body aches or change in appetite ENMT: Denies: throat pain or dental pain Card: Denies: chest pain Resp: Denies: dyspnea GI: Denies: abdominal pain, nausea, vomiting or diarrhea Musc: Reports: extremity pain; Denies: neck pain or back pain Skin/Breast: Denies: rash Neuro: Denies: headache(s) PFSH ED PFSH: Medical History DVT prophylaxis Dysphagia Pneumonia Sepsis Wound of left lower extremity Fracture of lateral malleolus of left fibula Adult BMI 40.0-44.9 kg/sq m Anemia UTI (urinary tract infection) Diastolic CHF Supracondylar fracture of left femur Fracture of distal end of femur Chronic antibiotic suppression Has been taking nitrofurantoin for last 6 months as per the Chronic anticoagulation Coumadin 2 and 3mg daily depending on INR 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 Presence of IVC filter Lymphedema Venous stasis dermatitis Chronic anemia Chronic kidney disease, stage II (mild) Dyslipidemia Hypertension Left-sided weakness CVA (cerebral vascular accident) Surgical History History of hip surgery H/O shoulder surgery History of hysterectomy S/P cholecystectomy Family History Other CAD (coronary artery disease) Hypertension Stroke Social History Smoking and tobacco/nicotine status: never used tobacco/nicotine Alcohol intake: never Substance/Drug Use: never Household members: spouse Housing: House Physical Exam Const: COMMON NORMALS: no acute distress, patient oriented x3 and healthy appearing HENMT: COMMON NORMALS: normocephalic and atraumatic HEAD & SCALP: normocephalic and atraumatic Neck/C-Spine: COMMON NORMALS: full ROM and supple Chest: COMMONS NORMALS: normal inspection of the chest Resp: COMMON NORMALS: normal respiratory effort Cardio: COMMON NORMALS: regular rate, regular rhythm and No murmurs present (Cardio) RATE: regular rate RHYTHM: regular rhythm Extremity: NARRATIVE EXTREMITY EXAM: Open wound noted to left medial knee is currently draining some blood minimal purulent material no erythema Neuro: COMMON NORMALS: patient oriented x3, moves all extremities and no focal motor deficits Psych: COMMON NORMALS: mental status grossly normal, Normal thought process present and cooperative THOUGHT PROCESS: Normal thought process present Skin: COMMON NORMALS: no rashes or lesions noted and no wounds GENERAL SKIN EXAM: no rashes or lesions noted Course Vital Signs: Vital signs: Vital Signs Temperature 99.2 F 10/18/23 10:28 Pulse Rate 99 10/18/23 10:28 Respiratory Rate 16 10/18/23 10:59 Blood Pressure 110/70 10/18/23 11:35 Pulse Oximetry 93 10/18/23 11:35 Oxygen Delivery Me thod Room Air 10/18/23 10:28 MDM - General Adult Medical Decision Making Patient presents here with known tibial plateau fracture she has developed a wound to the medial knee likely a pressure wound from her knee immobilizer she did have a blood culture come back so will admit to follow cultures start antibiotics of spoke to orthopedist along with hospitalist Medical Records I reviewed the patient's medical records. Lab Data I reviewed the patient's lab results. 10/18/23 10:45 10/18/23 10:45 Laboratory Results WBC 7.73 10^3/uL (3.29-11.43) 10/18/23 10:45 RBC 3.80 10^6/uL (3.85-5.65) L 10/18/23 10:45 Hgb 11.20 g/dL (11.27-16.99) L 10/18/23 10:45 Hct 36.3 % (36-47) 10/18/23 10:45 MCV 95.5 fl (85-98) 10/18/23 10:45 MCH 29.5 pg (27-33) 10/18/23 10:45 MCHC 30.9 g/dL (30-55) 10/18/23 10:45 RDW 15.3 % (12.1-15.1) H 10/18/23 10:45 Plt Count 300 10^3/cmm (157-399) 10/18/23 10:45 MPV 9.3 fL (7.4-10.4) 10/18/23 10:45 Neut % (Auto) 65.1 % 10/18/23 10:45 Lymph % (Auto) 20.2 % 10/18/23 10:45 [place] % (Auto) 10.3 % 10/18/23 10:45 Eos % (Auto) 3.0 % 10/18/23 10:45 Baso % (Auto) 0.9 % 10/18/23 10:45 Neut # (Auto) 5.03 10^3/uL (1.8-7.7) 10/18/23 10:45 Lymph # (Auto) 1.6 10^3/uL (0.8-4.8) 10/18/23 10:45 [place] # (Auto) 0.8 10^3/uL (0.2-0.9) 10/18/23 10:45 Eos # (Auto) 0.2 10^3/uL (0.0-0.8) 10/18/23 10:45 Baso # (Auto) 0.1 10^3/uL (0.0-0.1) 10/18/23 10:45 Nucleated RBC % (auto) 0 % 10/18/23 10:45 Nucleated RBCs # 0.0 /100WBC 10/18/23 10:45 Sodium 138 mmol/L (136-145) 10/18/23 10:45 Potassium 4.6 mmol/L (3.5-5.1) 10/18/23 10:45 Chloride 101 mmol/L (98-107) 10/18/23 10:45 Carbon Dioxide 31 mmol/L (22-29) H 10/18/23 10:45 Anion Gap 10.6 (5-19) 10/18/23 10:45 BUN 14 mg/dL (8-23) 10/18/23 10:45 Creatinine 0.5 mg/dL (0.5-0.9) 10/18/23 10:45 GFR Calculation Not Reportable 10/18/23 10:45 Glucose 108 mg/dL (65-115) 10/18/23 10:45 Calculated Osmolality 287 mOsm/kg (285-295) 10/18/23 10:45 Calcium 8.5 mg/dL (8.5-10.5) 10/18/23 10:45 Total Bilirubin 0.7 mg/dL (0.15-1.2) 10/18/23 10:45 AST 18 U/L (0-32) 10/18/23 10:45 ALT 6 U/L (0-33) 10/18/23 10:45 Alkaline Phosphatase 36 U/L (35-105) 10/18/23 10:45 Total Protein 7.8 g/dL (6.6-8.7) 10/18/23 10:45 Albumin 3.2 g/dL (3.5-5.2) L 10/18/23 10:45 Globulin 4.6 g/dL (1.3-4.6) 10/18/23 10:45 No radiology studies performed this visit Discharge Plan Discharge Patient Disposition: Admitted As Inpatient Clinical Impression: Closed fracture of tibial plateau, Open wound of knee Condition: Stable Prescriptions: No Action (DME) woundvac See Rx Instructions .Route .MEDSUPPLY Qty: 1 0RF Rx Instructions: As directed atorvastatin [Lipitor] 40 mg tablet 40 mg PO BEDTIME ropinirole 1 mg tablet See Rx Instructions .ROUTE .COMPLEX Rx Instructions: 1mg po q am and 2mg po qpm tizanidine 4 mg tablet 4 mg PO TID PRN (Reason: Muscle Spasm) citalopram [Celexa] 20 mg tablet 20 mg PO QAM trazodone 100 mg tablet 100 mg PO BEDTIME ferrous sulfate [Iron (ferrous sulfate)] 325 mg (65 mg iron) Tablet 325 mg PO DAILY oxybutynin chloride 5 mg tablet 5 mg PO BID metoprolol tartrate 25 mg tablet 12.5 mg PO BID amitriptyline 25 mg tablet 25 mg PO BEDTIME diazepam 5 mg tablet 5 mg PO BID omeprazole 20 mg capsule,delayed release(DR/EC) 20 mg PO DAILY nystatin 100,000 unit/gram Powder 1 applic TOPICAL DAILY PRN (Reason: Rash) hydrocodone-acetaminophen 5-325 mg tablet 1 tab PO Q6H PRN (Reason: pain) Qty: 25 0RF albuterol sulfate 2.5 mg /3 mL (0.083 %) solution for nebulization 2.5 mg inhalation Q6H PRN (Reason: shortness of breath or wheezing) Qty: 75 0RF promethazine-DM 6.25-15 mg/5 mL syrup 5 ml PO DAILY PRN (Reason: Cough) nitrofurantoin macrocrystal 50 mg capsule 50 mg PO DAILY potassium chloride 20 mEq tablet,ER particles/crystals 20 meq PO DAILY furosemide 20 mg tablet 20 mg PO DAILY acetaminophen 500 mg tablet 1,000 mg PO Q8H PRN (Reason: Pain) mupirocin 2 % ointment 1 applic topical DAILY Qty: 50 0RF Referrals: Efren Romano MD [Primary Care Provider] - Coding Level of Care Code ED Tank Cleaning Supervisor for Martín Curiel
[2023-10-18] MEDS: vancomycin 1,000 MG in sodium chloride 0.9% 250 ML 250 MG IV (10:59)
[2023-10-18] MEDS: morphine 4 mg/mL SDV 1 mL IVP (10:59)
[2023-10-18] MEDS: ondansetron 2 mg/ML SDV 2 mL 4 MG IVP (10:59)
[2023-10-18 11:05] LABS: Basophils # 0.1 10^3/uL (0.0-0.1); Basophils % 0.9 %; Eosinophils # 0.2 10^3/uL (0.0-0.8); Hematocrit 36.3 % (36-47); Lymphocytes # 1.6 10^3/uL (0.8-4.8); Lymphocytes % 20.2 %; Mean Corpuscular HGB Conc 30.9 g/dL (30-55); Mean Corpuscular Hemoglobin 29.5 pg (27-33); Mean Corpuscular Volume 95.5 fl (85-98); Mean Platelet Volume 9.3 fL (7.4-10.4); Monocytes # 0.8 10^3/uL (0.2-0.9); Monocytes % 10.3 %; Neutrophils # 5.03 10^3/uL (1.8-7.7); Neutrophils % 65.1 %; Nucleated Red Blood Cells % 0 %; Platelet Count 300 10^3/cmm (157-399); Red Cell Distribution Width 15.3 % (12.1-15.1); White Blood Count 7.73 10^3/uL (3.29-11.43)
[2023-10-18 11:19] LABS: Alanine Aminotransferase 6 U/L (0-33); Albumin Level 3.2 g/dL (3.5-5.2); Alkaline Phosphatase 36 U/L (35-105); Blood Urea Nitrogen 14 mg/dL (8-23); Calcium 8.5 mg/dL (8.5-10.5); Carbon Dioxide 31 mmol/L (22-29); Chloride 101 mmol/L (98-107); Creatinine Clr Calc Pharmacy 62.4457; Globulin 4.6 g/dL (1.3-4.6); Glucose 108 mg/dL (65-115); Osmolality Calculated 287 mOsm/kg (285-295); Sodium 138 mmol/L (136-145); Total Bilirubin 0.7 mg/dL (0.15-1.2); Total Protein 7.8 g/dL (6.6-8.7)
[2023-10-18 11:25] LABS: Anion Gap 10.6 (5-19); Aspartate Amino Transferase 18 U/L (0-32); Potassium 4.6 mmol/L (3.5-5.1)
--- NOTE | 2023-10-18 15:39 | P.HP_ITS ---
Providers/Chief Complaint 2 Admitting Physician: Anibal Arriola MD Primary Care Provider: Efren Romano MD Chief Complaint: left leg pain History of Present Illness Doris Clarke is a 73 year old female who comes in to the ER today for worsening of a left knee open wound. Patient was given the option of surgical intervention but her and her declined at that time. She was subsequently sent home with the Frio brace. Apparently this brace has been rubbing several sores and ulcerations on her leg. The worst being on the medial aspect of her left knee. Apparently this has been opened up and draining some for several days. She denies any fevers or chills. No chest pain or shortness of breath. She is not able to get up with her leg like this. is having increasingly difficult time taking care of her as well. Review of Systems 2 Narrative: General: No chronic fevers or chronic weight changes. HEENT: No acute changes in vision. No acute hearing loss. No new difficulty swallowing. Heart: No new chest pain or recent issues with coronary disease. Lungs: No history of TB. No chronic lung disease. GI: No history of GI bleeding. No hepatitis. No chronic nausea or vomitting. Renal: No dysuria or frequency. No hematuria Neuro: No acute neurological changes or deficits. Musculoskeletal: No acutely worsening joint pain or swelling. Medications/Allergies Home Medications Medication Instructions Recorded Confirmed Last Taken Type atorvastatin 40 mg tablet (Lipitor) 40 mg PO BEDTIME 03/21/20 10/17/23 10/16/23 History citalopram 20 mg tablet (Celexa) 20 mg PO QAM 03/21/20 10/17/23 10/17/23 History ferrous sulfate 325 mg (65 mg 325 mg PO DAILY 03/21/20 10/17/23 10/16/23 History iron) tablet (Iron (ferrous sulfate)) metoprolol tartrate 25 mg tablet 12.5 mg PO BID 03/21/20 10/17/23 10/16/23 History oxybutynin chloride 5 mg tablet 5 mg PO BID 03/21/20 10/17/23 10/17/23 History ropinirole 1 mg tablet See Rx Instructions .Route .COMPLEX 03/21/20 10/17/23 10/17/23 History tizanidine 4 mg tablet 4 mg PO TID PRN Muscle Spasm 03/21/20 10/17/23 04/06/21 History trazodone 100 mg tablet 100 mg PO BEDTIME 03/21/20 10/17/23 10/16/23 History amitriptyline 25 mg tablet 25 mg PO BEDTIME 12/30/20 10/17/23 10/16/23 History diazepam 5 mg tablet 5 mg PO BID 12/30/20 10/17/23 10/16/23 History woundvac #1 ea 04/06/21 10/17/23 Unknown Rx nystatin 100,000 unit/gram topical 1 applic topical DAILY PRN Rash 01/19/23 10/17/23 07/24/23 History powder omeprazole 20 mg capsule,delayed 20 mg PO DAILY 01/19/23 10/17/23 10/16/23 History release albuterol sulfate 2.5 mg/3 mL 2.5 mg (3 mL) inhalation Q6H PRN 07/30/23 10/17/23 Unknown Rx (0.083 %) solution for nebulization shortness of breath or wheezing #75 mL hydrocodone 5 mg-acetaminophen 325 1 tab PO Q6H PRN pain #25 tabs 09/18/23 10/17/23 Unknown Rx mg tablet acetaminophen 500 mg tablet 1,000 mg PO Q8H PRN Pain 09/26/23 10/17/23 Unknown History furosemide 20 mg tablet 20 mg PO DAILY 09/26/23 10/17/23 10/16/23 History mupirocin 2 % topical ointment 1 applic topical DAILY #50 grams 09/26/23 10/17/23 Unknown Rx nitrofurantoin macrocrystal 50 mg 50 mg PO DAILY 09/26/23 10/17/23 09/26/23 History capsule potassium chloride 20 mEq 20 meq PO DAILY 09/26/23 10/17/23 10/16/23 History tablet,extended release(part/cryst) promethazine-DM 6.25 mg-15 mg/5 mL 5 ml PO DAILY PRN Cough 09/26/23 10/17/23 Unknown History oral syrup Allergies Allergy/AdvReac Type Severity Reaction Status Date / Time fluconazole Allergy Unknown Verified 09/26/23 08:52 latex Allergy Unknown Verified 09/26/23 08:52 Sulfa (Sulfonamide Allergy Unknown Verified 09/26/23 08:52 Antibiotics) PFSH Acute 2 PFSH: Medical History DVT prophylaxis Dysphagia Pneumonia Sepsis Wound of left lower extremity Fracture of lateral malleolus of left fibula Adult BMI 40.0-44.9 kg/sq m Anemia UTI (urinary tract infection) Diastolic CHF Supracondylar fracture of left femur Fracture of distal end of femur Chronic antibiotic suppression Has been taking nitrofurantoin for last 6 months as per the Chronic anticoagulation Coumadin 2 and 3mg daily depending on INR 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 Presence of IVC filter Lymphedema Venous stasis dermatitis Chronic anemia Chronic kidney disease, stage II (mild) Dyslipidemia Hypertension Left-sided weakness CVA (cerebral vascular accident) Surgical History History of hip surgery H/O shoulder surgery History of hysterectomy S/P cholecystectomy Family History Other CAD (coronary artery disease) Hypertension Stroke Social History Smoking and tobacco/nicotine status: never used tobacco/nicotine Alcohol intake: never Substance/Drug Use: never Household members: spouse Housing: House Vitals/I&O/Wt Last Vital Signs Temp 99.2 F 10/18/23 10:28 Pulse 83 10/18/23 13:01 Resp 16 10/18/23 13:01 BP 150/101 10/18/23 13:35 Pulse Ox 91 10/18/23 13:35 O2 Del Method Room Air 10/18/23 14:33 10/18/23 10/18/23 10/18/23 06:59 14:59 22:59 Intake Total 250 / 250 Balance 250 / 250 Weight last 48 hrs Weight 137 lb 3.2 oz Weight 152 lb Physical Exam 2 Narrative: General: No acute distress, Alert. Well nourished. HEENT: PERRLA, EOMI. vision grossly normal. Throat clear. Neck: supple, no adenopathy. Heart: Regular rate and rhythm. No murmurs, rubs or gallops. Normal capillary refill. Lungs: Clear to auscultation. No wheezes, rhonchi or rales. Abdomen: Positive bowel sounds. Non-tender, non-distended. No hepatosplenomegaly. No gaurding. Extremities: When I seen her in the ER she had some significant swelling in her left leg and around the knee. There was some firmness and induration. There is a 3 cm open wound on her medial left knee. Other smaller abrasions noted. When pressed on the surrounding tissue around the open wound a large amount of bloody fluid and pus was expressed. Culture had already been obtained of this in the ER. After doing this the tissue was much less firm.. Negative Jorge's. Data 10/18/23 10:45 10/18/23 10:45 A&P Assessment and plan (1) Closed fracture of tibial plateau: I am not anticipating anybody is going to want to work on this at this point with the infection around her knee. Ortho has been consulted to verify that and give further recommendations. Knee brace does not seem to be a good option at this time. (2) Open wound of knee: She has a significant open wound on the medial aspect of her left knee. CT scan shows no evidence of osteomyelitis. CT did not show an obvious abscess however in the ER a large amount of dark bloody fluid and some pus was expressed which would be consistent with a hematoma and possible abscess. She is going to require IV antibiotics for abscess we will probably start with just some IV Levaquin for now. I imagine we will be needing to work on correction placement upon discharge. Attestations 2 Medical Necessity Statement*: Patient is a 73-year-old female with left knee hematoma and abscess requiring IV antibiotic treatment and monitoring. Coding Level of Care Code Acute Code for [facility] Fwd Diagnoses Closed fracture of tibial plateau S82.143A Open wound of knee S81.009A
--- NOTE | 2023-10-18 16:20 | P.CONIM_ITS ---
Providers/Reason For Consult 2 Consulting Physician/Specialty*: Hospitalist Reason for Consult*: Tibial plateau fracture Attending Physician: Anibal Arriola MD Primary Care Provider: Efren Romano MD History of Present Illness History of Present Illness Doris Clarke is a 73 year old female had sustained a tibial plateau fracture on the left on 09/18/2023. She was given a brace and was told to follow-up with me in clinic. However she no showed for the appointment. She presents to the ER today with a medial wound on her left knee. This is more irritation from the brace. Does not appear to be infected. Review of Systems 2 Const: Denies: fever(s), chills, body aches or change in appetite ENMT: Denies: throat pain or dental pain Card: Denies: chest pain Resp: Denies: dyspnea GI: Denies: abdominal pain, nausea, vomiting or diarrhea Musc: Reports: extremity pain; Denies: neck pain or back pain Skin/Breast: Denies: rash Neuro: Denies: headache(s) Medications/Allergies Home Medications Medication Instructions Recorded Confirmed Last Taken Type atorvastatin 40 mg tablet (Lipitor) 40 mg PO BEDTIME 03/21/20 10/17/23 10/16/23 History citalopram 20 mg tablet (Celexa) 20 mg PO QAM 03/21/20 10/17/23 10/17/23 History ferrous sulfate 325 mg (65 mg 325 mg PO DAILY 03/21/20 10/17/23 10/16/23 History iron) tablet (Iron (ferrous sulfate)) metoprolol tartrate 25 mg tablet 12.5 mg PO BID 03/21/20 10/17/23 10/16/23 History oxybutynin chloride 5 mg tablet 5 mg PO BID 03/21/20 10/17/23 10/17/23 History ropinirole 1 mg tablet See Rx Instructions .Route .COMPLEX 03/21/20 10/17/23 10/17/23 History tizanidine 4 mg tablet 4 mg PO TID PRN Muscle Spasm 03/21/20 10/17/23 04/06/21 History trazodone 100 mg tablet 100 mg PO BEDTIME 03/21/20 10/17/23 10/16/23 History amitriptyline 25 mg tablet 25 mg PO BEDTIME 12/30/20 10/17/2310/15/24 History diazepam 5 mg tablet 5 mg PO BID 12/30/20 10/17/23 10/16/23 History woundvac #1 ea 04/06/21 10/17/23 Unknown Rx nystatin 100,000 unit/gram topical 1 applic topical DAILY PRN Rash 01/19/23 10/17/23 07/24/23 History powder omeprazole 20 mg capsule,delayed 20 mg PO DAILY 01/19/23 10/17/23 10/16/23 History release albuterol sulfate 2.5 mg/3 mL 2.5 mg (3 mL) inhalation Q6H PRN 07/30/23 10/17/23 Unknown Rx (0.083 %) solution for nebulization shortness of breath or wheezing #75 mL hydrocodone 5 mg-acetaminophen 325 1 tab PO Q6H PRN pain #25 tabs 09/18/23 10/17/23 Unknown Rx mg tablet acetaminophen 500 mg tablet 1,000 mg PO Q8H PRN Pain 09/26/23 10/17/23 Unknown History furosemide 20 mg tablet 20 mg PO DAILY 09/26/23 10/17/23 10/16/23 History mupirocin 2 % topical ointment 1 applic topical DAILY #50 grams 09/26/23 10/17/23 Unknown Rx nitrofurantoin macrocrystal 50 mg 50 mg PO DAILY 09/26/23 10/17/23 09/26/23 History capsule potassium chloride 20 mEq 20 meq PO DAILY 09/26/23 10/17/23 10/16/23 History tablet,extended release(part/cryst) promethazine-DM 6.25 mg-15 mg/5 mL 5 ml PO DAILY PRN Cough 09/26/23 10/17/23 Unknown History oral syrup Allergies Allergy/AdvReac Type Severity Reaction Status Date / Time fluconazole Allergy Unknown Verified 09/26/23 08:52 latex Allergy Unknown Verified 09/26/23 08:52 Sulfa (Sulfonamide Allergy Unknown Verified 09/26/23 08:52 Antibiotics) PFSH Acute 2 PFSH: Medical History DVT prophylaxis Dysphagia Pneumonia Sepsis Wound of left lower extremity Fracture of lateral malleolus of left fibula Adult BMI 40.0-44.9 kg/sq m Anemia UTI (urinary tract infection) Diastolic CHF Supracondylar fracture of left femur Fracture of distal end of femur Chronic antibiotic suppression Has been taking nitrofurantoin for last 6 months as per the Chronic anticoagulation Coumadin 2 and 3mg daily depending on INR 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 Presence of IVC filter Lymphedema Venous stasis dermatitis Chronic anemia Chronic kidney disease, stage II (mild) Dyslipidemia Hypertension Left-sided weakness CVA (cerebral vascular accident) Surgical History History of hip surgery H/O shoulder surgery History of hysterectomy S/P cholecystectomy Family History Other CAD (coronary artery disease) Hypertension Stroke Social History Smoking and tobacco/nicotine status: never used tobacco/nicotine Alcohol intake: never Substance/Drug Use: never Household members: spouse Housing: House Vitals/I&O/Wt Last Vital Signs Temp 98.3 F 10/18/23 16:00 Pulse 80 10/18/23 16:00 Resp 16 10/18/23 16:00 BP 109/67 10/18/23 16:00 Pulse Ox 94 10/18/23 16:00 O2 Del Method Room Air 10/18/23 16:00 10/18/23 10/18/23 10/18/23 06:59 14:59 22:59 Intake Total 250 / 250 Balance 250 / 250 Weight last 48 hrs Weight 137 lb 3.2 oz Weight 152 lb Physical Exam 2 Narrative: Patient is lying in bed comfortable. She is complaining of pain in the left knee. There is medial wound. Does not appear to be infected. Data 10/18/23 10:45 10/18/23 10:45 A&P Assessment and plan (1) Closed fracture of tibial plateau: At this point would manage nonoperatively. Will try to leave the brace is much as possible. Nonweightbearing left lower extremity Patient's bone quality is extremely poor appears to be very osteoporotic she would not be candidate for any type of open reduction internal fixation. Qualifiers: Encounter type: initial encounter Laterality: left Qualified Code(s): S82.142A - Displaced bicondylar fracture of left tibia, initial encounter for closed fracture Coding Level of Care Code Acute Code for [facility] Fwd Diagnoses Closed fracture of left tibial plateau, initial encounter S82.142A Encounter type: initial encounter Laterality: left
[2023-10-18] MEDS: sodium chloride 0.9% 1,000 ML 75 ML IV (16:32)
[2023-10-18] MEDS: levofloxacin-dextrose 5 % 500 MG/100 ML PREMIX 100 MG IV (16:33)
[2023-10-18] MEDS: enoxaparin 30 mg/0.3 mL Syringe SUBCUT (16:33)
[2023-10-18] MEDS: HYDROcodone-acetaminophen 5-325 mg Tablet 1 TAB PO (16:34)
[2023-10-18] MEDS: metoprolol tartrate 25 mg Tablet 12.5 MG PO (17:52)
[2023-10-18] MEDS: diazePAM 5 mg Tablet PO (17:52)
[2023-10-18] MEDS: ropinirole 1 mg Tablet 2 MG PO (17:53)
[2023-10-18] MEDS: atorvastatin 40 mg Tablet PO (20:26)
[2023-10-19] VITALS (7 sets, daily range): BP systolic 105–138; BP diastolic 61–78; PULSE 62–80; RESP 15–18; TEMP 36.3–36.8; O2SAT 90–95
[2023-10-19] MEDS: ropinirole 1 mg Tablet PO (05:25)
[2023-10-19] MEDS: citalopram 20 mg Tablet PO (05:25)
[2023-10-19 05:49] LABS: Basophils % 0.5 %; Eosinophils # 0.3 10^3/uL (0.0-0.8); Eosinophils % 4.9 %; Hematocrit 32.7 % (36-47); Lymphocytes # 1.3 10^3/uL (0.8-4.8); Lymphocytes % 19.8 %; Mean Corpuscular HGB Conc 31.2 g/dL (30-55); Mean Corpuscular Hemoglobin 29.9 pg (27-33); Mean Corpuscular Volume 95.9 fl (85-98); Mean Platelet Volume 9.5 fL (7.4-10.4); Monocytes # 0.6 10^3/uL (0.2-0.9); Monocytes % 9.8 %; Neutrophils # 4.09 10^3/uL (1.8-7.7); Neutrophils % 64.4 %; Nucleated Red Blood Cells % 0 %; Platelet Count 271 10^3/cmm (157-399); Red Blood Count 3.41 10^6/uL (3.85-5.65); Red Cell Distribution Width 15.1 % (12.1-15.1); White Blood Count 6.35 10^3/uL (3.29-11.43)
[2023-10-19 06:16] LABS: Blood Urea Nitrogen 13 mg/dL (8-23); Calcium 7.9 mg/dL (8.5-10.5); Carbon Dioxide 30 mmol/L (22-29); Chloride 102 mmol/L (98-107); Glucose 102 mg/dL (65-115); Osmolality Calculated 284 mOsm/kg (285-295); Sodium 137 mmol/L (136-145)
[2023-10-19] MEDS: ferrous sulfate EC 325 mg Tablet PO (09:11)
[2023-10-19] MEDS: diazePAM 5 mg Tablet PO ×2 (09:11→18:19)
[2023-10-19] MEDS: pantoprazole DR 40 mg Tablet PO (09:11)
[2023-10-19] MEDS: metoprolol tartrate 25 mg Tablet 12.5 MG PO ×2 (09:11→18:19)
[2023-10-19] MEDS: potassium chloride ER 20 mEq Tablet PO (09:11)
[2023-10-19] MEDS: FUROsemide 20 mg Tablet PO (09:11)
[2023-10-19] MEDS: HYDROcodone-acetaminophen 5-325 mg Tablet 1 TAB PO ×2 (09:12→16:39)
--- NOTE | 2023-10-19 09:12 | P.PN_ITS ---
Subjective 2 Subjective: The patient's pain seems to be improving. She saw Dr. Khoury yesterday and he did not feel that surgery was an option at this point. She continues to have significant drainage from her fracture site. She feels well otherwise. She has been able to tolerate soft foods by mouth. She cannot have a regular diet due to not having teeth. Vitals/I&O/Wt Last Vital Signs Temp 98.3 F 10/19/23 07:24 Pulse 78 10/19/23 08:01 Resp 16 10/19/23 08:01 BP 138/78 10/19/23 07:24 Pulse Ox 90 10/19/23 08:01 O2 Del Method Room Air 10/19/23 08:01 10/18/23 10/19/23 10/19/23 22:59 06:59 14:59 Intake Total 940 / 1190 655 / 1845 Balance 940 / 1190 655 / 1845 Weight last 48 hrs Weight 143 lb Weight 137 lb 3.2 oz Weight 152 lb Physical Exam 2 Narrative: General: Alert. In no acute distress. Mouth: No erythema or tonsilar enlargement. No masses noted. No teeth present. Neck: No thyromegaly. No lymphadenopathy. Heart: Regular rate and rhythm. No murmurs. Lungs: Clear to auscultation bilaterally. No wheezes, crackles or ronchi. Abdomen: Soft, non-tender. No hepatosplenomegaly. Extremities: Trace edema in the bilateral lower extremities. Small lesion over the left lateral tibia below the knee Minimal drainage. Lesion over the left medial leg that is open approximately 3 cm and draining a large amount of bloody discharge. Mild purulent nature to it. No significant odor today. Data 10/19/23 05:37 10/19/23 05:37 A&P Assessment and plan (1) Closed fracture of tibial plateau: The patient had a closed fracture of her tibial plateau but is not a surgical candidate at this time per Dr. Khoury. The patient is to continue to use the brace. She seems to have significant ulcerations related to this. Qualifiers: Encounter type: initial encounter Laterality: left Qualified Code(s): S82.142A - Displaced bicondylar fracture of left tibia, initial encounter for closed fracture (2) Abscess: One of the ulcerations has become significantly infected leading to a large abscess that is draining a purulent sanguinous drainage. A large amount of drainage was expressed again today. We will plan to pack the lesion and continue with Levaquin. The odor is starting to show signs of improvement as is the pain. The patient will likely need IV antibiotics for 3 days followed by oral antibiotics as an outpatient. She will need to be transferred to a nursing facility for further treatment. The has already contacted [facility] and we will plan to discharge there when she is more stable. Attestations 2 Medical Necessity Statement*: The patient's care will cross 2 midnights and I confirm that it is medically necessary. She needs IV antibiotics in order to treat this infection so that it does not lead to osteomyelitis. She will need 3 days of IV antibiotics. Coding Level of Care Code Acute Code for [facility] Fwd Diagnoses Closed fracture of left tibial plateau, initial encounter S82.142A Encounter type: initial encounter Laterality: left Abscess L02.91
--- NOTE | 2023-10-19 10:02 | PC.PHAR ---
SPOUSE STATES PT TAKES ALPRAZOLAM 0.25MG AT BEDTIME. UNABLE TO FIND AN ORDER FOR IT. 10/19/23
[2023-10-19] MEDS: sodium chloride 0.9% 1,000 ML 75 ML IV (10:18)
[2023-10-19] MEDS: levofloxacin-dextrose 5 % 500 MG/100 ML PREMIX 100 MG IV (16:17)
[2023-10-19] MEDS: enoxaparin 30 mg/0.3 mL Syringe SUBCUT (16:18)
[2023-10-19] MEDS: ropinirole 1 mg Tablet 2 MG PO (18:18)
[2023-10-19] MEDS: ketorolac 10 mg Tablet PO (21:17)
[2023-10-19] MEDS: atorvastatin 40 mg Tablet PO (21:17)
[2023-10-20] MEDS: sodium chloride 0.9% 1,000 ML 75 ML IV ×2 (03:05→17:45)
[2023-10-20 04:00] VITALS: BP 131/67; PULSE 56; RESP 16; TEMP 36.4; O2SAT 98
[2023-10-20] MEDS: citalopram 20 mg Tablet PO (05:17)
[2023-10-20] MEDS: ropinirole 1 mg Tablet PO (05:17)
[2023-10-20 05:39] LABS: Basophils # 0.1 10^3/uL (0.0-0.1); Basophils % 1.2 %; Eosinophils # 0.5 10^3/uL (0.0-0.8); Eosinophils % 7.4 %; Hematocrit 33.4 % (36-47); Lymphocytes # 1.7 10^3/uL (0.8-4.8); Lymphocytes % 27.5 %; Mean Corpuscular HGB Conc 29.3 g/dL (30-55); Mean Corpuscular Hemoglobin 29.4 pg (27-33); Mean Corpuscular Volume 100.3 fl (85-98); Mean Platelet Volume 9.4 fL (7.4-10.4); Monocytes # 0.6 10^3/uL (0.2-0.9); Monocytes % 10.5 %; Neutrophils # 3.19 10^3/uL (1.8-7.7); Neutrophils % 52.6 %; Nucleated Red Blood Cells % 0 %; Platelet Count 261 10^3/cmm (157-399); Red Blood Count 3.33 10^6/uL (3.85-5.65); White Blood Count 6.07 10^3/uL (3.29-11.43)
[2023-10-20 06:04] LABS: Alanine Aminotransferase < 5 U/L (0-33); Albumin Level 2.4 g/dL (3.5-5.2); Alkaline Phosphatase 31 U/L (35-105); Anion Gap 12.1 (5-19); Aspartate Amino Transferase 14 U/L (0-32); Blood Urea Nitrogen 13 mg/dL (8-23); Calcium 8.2 mg/dL (8.5-10.5); Carbon Dioxide 26 mmol/L (22-29); Chloride 104 mmol/L (98-107); Globulin 3.7 g/dL (1.3-4.6); Glucose 99 mg/dL (65-115); Magnesium 1.8 mg/dL (1.7-2.3); Osmolality Calculated 284 mOsm/kg (285-295); Potassium 5.1 mmol/L (3.5-5.1); Sodium 137 mmol/L (136-145); Total Bilirubin 0.3 mg/dL (0.15-1.2); Total Protein 6.1 g/dL (6.6-8.7)
[2023-10-20 07:54] VITALS: BP 129/94; PULSE 68; RESP 16; TEMP 36.7; O2SAT 96
[2023-10-20 09:36] VITALS: PULSE 62; RESP 16; O2SAT 95
[2023-10-20] MEDS: pantoprazole DR 40 mg Tablet PO (09:56)
[2023-10-20] MEDS: ferrous sulfate EC 325 mg Tablet PO (09:56)
[2023-10-20] MEDS: diazePAM 5 mg Tablet PO ×2 (09:56→17:45)
[2023-10-20] MEDS: potassium chloride ER 20 mEq Tablet PO (09:56)
[2023-10-20] MEDS: metoprolol tartrate 25 mg Tablet 12.5 MG PO ×2 (09:57→17:45)
[2023-10-20] MEDS: FUROsemide 20 mg Tablet PO (09:57)
--- NOTE | 2023-10-20 09:58 | PM.PN ---
Subjective Subjective: The patient is feeling well today. Her pain is still well-controlled. The drainage in her leg is decreasing. Vitals/I&O/Wt Last Vital Signs Temp 98.0 F 10/20/23 07:54 Pulse 62 10/20/23 09:36 Resp 16 10/20/23 09:36 BP 129/94 10/20/23 07:54 Pulse Ox 95 10/20/23 09:36 O2 Del Method Room Air 10/20/23 09:36 10/19/23 10/20/23 10/20/23 22:59 06:59 14:59 Intake Total 340 / 1045 966.25 / 2010. 240 / 240 Output Total 275 / 275 Balance 340 / 1045 691.25 / 1736.25 240 / 240 Weight last 48 hrs Weight 144 lb 4.8 oz Weight 143 lb Weight 137 lb 3.2 oz Weight 152 lb Physical Exam Narrative: General: Alert. In no acute distress. Mouth: No erythema or tonsilar enlargement. No masses noted. No teeth present. Neck: No thyromegaly. No lymphadenopathy. Heart: Regular rate and rhythm. No murmurs. Lungs: Clear to auscultation bilaterally. No wheezes, crackles or ronchi. Abdomen: Soft, non-tender. No hepatosplenomegaly. Extremities: Trace edema in the bilateral lower extremities. Small lesion over the left lateral tibia below the knee this minimal drainage. Lesion over the left medial leg that is open approximately 3 cm and draining a small amount of bloody discharge. Packing present. Mild purulent nature to it. No significant odor today. Urinary Catheter Management: Anderson: Cath Placed During This Visit: yes Urinary Catheter Date of Insertion: 10/19/23 Urinary Catheter Time of Insertion: 21:30 Data 10/20/23 05:29 10/20/23 05:29 Micro: Microbiology 10/18/23 10:38 Wound Culture - Preliminary Leg - Wound Gram Negative Rods A&P Assessment and plan (1) Abscess: We will continue to change packing daily. This is likely due to an ulcer from wearing the brace that became infected. Continue with Levaquin IV. Showing signs of improvement. (2) Bacteremia: The patient's blood cultures are coming back positive for staph and the wound cultures are coming back positive for gram-negative rods. We will follow culture results and adjust antibiotics as necessary. Continue with Levaquin for now as the patient seems to be responding well to this. (3) Cellulitis of left lower extremity: (4) Closed fracture of tibial plateau: Qualifiers: Encounter type: initial encounter Laterality: left Qualified Code(s): S82.142A - Displaced bicondylar fracture of left tibia, initial encounter for closed fracture Attestations Medical Necessity Statement*: The patient continues to need IV antibiotic therapy and has her cultures are coming back positive in her blood. Her stay will continue to cross 2 midnights and she will likely need mcfp placement after antibiotic therapy has been completed. Coding Level of Care Code Acute Code for [facility] Fwd Diagnoses Abscess L02.91 Bacteremia R78.81 Cellulitis of left lower extremity L03.116 Closed fracture of left tibial plateau, initial encounter S82.142A Encounter type: initial encounter Laterality: left
--- NOTE | 2023-10-20 10:27 | P.PN_ITS ---
Subjective 2 Subjective: Patient alert pain is controlled. is at bedside discussed treatment with him. Vitals/I&O/Wt Last Vital Signs Temp 98.0 F 10/20/23 07:54 Pulse 62 10/20/23 09:36 Resp 16 10/20/23 09:36 BP 129/94 10/20/23 07:54 Pulse Ox 95 10/20/23 09:36 O2 Del Method Room Air 10/20/23 09:36 10/19/23 10/20/23 10/20/23 22:59 06:59 14:59 Intake Total 340 / 1045 966. 240 / 240 Output Total 275 / 275 Balance 340 / 1045 691. / 173. 240 / 240 Weight last 48 hrs Weight 144 lb 4.8 oz Weight 143 lb Weight 137 lb 3.2 oz Weight 152 lb Physical Exam 2 Narrative: Medial wound continues to drain continues to improve. Urinary Catheter Management: Anderson: Cath Placed During This Visit: yes Urinary Catheter Date of Insertion: 10/19/23 Urinary Catheter Time of Insertion: 21:30 Data 10/20/23 05:29 10/20/23 05:29 Micro: Microbiology 10/18/23 10:38 Wound Culture - Preliminary Leg - Wound Gram Negative Rods A&P Assessment and plan (1) Closed fracture of tibial plateau: Patient has tibial plateau fracture approximately 4 to 5 weeks out from actual injury. Patient has a medial leg wound from brace. At this point will refer to wound clinic outpatient. Qualifiers: Encounter type: initial encounter Laterality: left Qualified Code(s): S82.142A - Displaced bicondylar fracture of left tibia, initial encounter for closed fracture Attestations 2 Medical Necessity Statement*: Per primary service Coding Level of Care Code Acute Code for [facility] Fwd Diagnoses Closed fracture of left tibial plateau, initial encounter S82.142A Encounter type: initial encounter Laterality: left
[2023-10-20 11:08] VITALS: BP 145/56; PULSE 65; RESP 16; TEMP 36.9; O2SAT 96
[2023-10-20 16:00] VITALS: BP 129/82; PULSE 72; RESP 18; TEMP 37; O2SAT 94
[2023-10-20] MEDS: levofloxacin-dextrose 5 % 500 MG/100 ML PREMIX 100 MG IV (16:48)
[2023-10-20] MEDS: enoxaparin 30 mg/0.3 mL Syringe SUBCUT (16:48)
[2023-10-20] MEDS: piperacillin-tazobactam 3.375 GM in sodium chloride 0.9% (plus) 50 ML IV (17:44)
[2023-10-20] MEDS: ropinirole 1 mg Tablet 2 MG PO (17:45)
[2023-10-20 20:00] VITALS: BP 162/99; PULSE 69; RESP 18; TEMP 37.1; O2SAT 97
[2023-10-20] MEDS: atorvastatin 40 mg Tablet PO (20:04)
[2023-10-20] MEDS: ketorolac 10 mg Tablet PO (20:55)
[2023-10-21] VITALS (8 sets, daily range): BP systolic 117–159; BP diastolic 61–72; PULSE 52–82; RESP 16–19; TEMP 36.3–36.9; O2SAT 92–99
[2023-10-21] MEDS: piperacillin-tazobactam 3.375 GM in sodium chloride 0.9% (plus) 50 ML IV ×2 (00:59→09:07)
[2023-10-21 01:44] LABS: Iron 31 ug/dL (37-145); Percent Saturation 20.9 % (20-50); Total Iron Binding Capacity 148 mcg/dl; Unsaturated Iron Binding 117 ug/dL (112-347); Vitamin B12 205 pg/mL (232-1245)
[2023-10-21 04:04] LABS: Basophils # 0.1 10^3/uL (0.0-0.1); Basophils % 1.1 %; Eosinophils # 0.5 10^3/uL (0.0-0.8); Eosinophils % 7.3 %; Lymphocytes # 1.7 10^3/uL (0.8-4.8); Lymphocytes % 26.7 %; Mean Corpuscular HGB Conc 30.6 g/dL (30-55); Mean Corpuscular Hemoglobin 29.1 pg (27-33); Mean Corpuscular Volume 95.1 fl (85-98); Mean Platelet Volume 9.4 fL (7.4-10.4); Monocytes # 0.7 10^3/uL (0.2-0.9); Monocytes % 10.5 %; Neutrophils # 3.38 10^3/uL (1.8-7.7); Neutrophils % 53.6 %; Nucleated Red Blood Cells % 0 %; Platelet Count 286 10^3/cmm (157-399); Red Blood Count 3.47 10^6/uL (3.85-5.65); Red Cell Distribution Width 14.8 % (12.1-15.1)
[2023-10-21 04:16] LABS: Alanine Aminotransferase 8 U/L (0-33); Albumin Level 2.6 g/dL (3.5-5.2); Alkaline Phosphatase 39 U/L (35-105); Anion Gap 10.1 (5-19); Aspartate Amino Transferase 12 U/L (0-32); Blood Urea Nitrogen 13 mg/dL (8-23); Calcium 7.9 mg/dL (8.5-10.5); Carbon Dioxide 29 mmol/L (22-29); Chloride 105 mmol/L (98-107); Creatinine Clr Calc Pharmacy 64.7144; Globulin 3.8 g/dL (1.3-4.6); Glucose 106 mg/dL (65-115); Magnesium 1.8 mg/dL (1.7-2.3); Osmolality Calculated 291 mOsm/kg (285-295); Potassium 4.1 mmol/L (3.5-5.1); Sodium 140 mmol/L (136-145); Total Bilirubin 0.3 mg/dL (0.15-1.2); Total Protein 6.4 g/dL (6.6-8.7)
[2023-10-21 04:32] LABS: Folate Level 8.1 ng/mL (4.8-37.3)
[2023-10-21] MEDS: citalopram 20 mg Tablet PO (05:10)
[2023-10-21] MEDS: HYDROcodone-acetaminophen 5-325 mg Tablet 1 TAB PO (05:11)
[2023-10-21] MEDS: sodium chloride 0.9% 1,000 ML 75 ML IV ×2 (05:11→18:13)
[2023-10-21] MEDS: ropinirole 1 mg Tablet PO (05:11)
[2023-10-21] MEDS: potassium chloride ER 20 mEq Tablet PO (09:03)
[2023-10-21] MEDS: ferrous sulfate EC 325 mg Tablet PO (09:03)
[2023-10-21] MEDS: pantoprazole DR 40 mg Tablet PO (09:03)
[2023-10-21] MEDS: diazePAM 5 mg Tablet PO ×2 (09:04→16:59)
[2023-10-21] MEDS: FUROsemide 20 mg Tablet PO (09:04)
[2023-10-21] MEDS: metoprolol tartrate 25 mg Tablet 12.5 MG PO ×2 (09:04→16:59)
--- NOTE | 2023-10-21 12:03 | PC.SOCIAL ---
IMM Update Pg. 2 of IMM updated and reviewed with patient who verbalized understanding. Copy provided.
[2023-10-21] MEDS: morphine 4 mg/mL SDV 1 mL 1 MG IVP (12:05)
[2023-10-21] MEDS: meropenem 1,000 MG in sodium chloride 0.9% (plus) 50 ML 100 MG IV ×2 (13:05→21:07)
[2023-10-21 14:07] LABS: C Reactive Protein 5.9 mg/L (0.0-4.9)
[2023-10-21 14:17] LABS: Erythrocyte Sedimentation Rate 16 mm/hr (0-15)
--- NOTE | 2023-10-21 16:21 | P.PN_ITS ---
Subjective 2 Subjective: Hospital course, labs appreciated. Examination patient laying comfortably in bed, complaining of pain in the leg and in the hip. Denies any nausea, vomiting, headache. Patient seems to be awake and alert to self and being in the hospital. Vitals/I&O/Wt Last Vital Signs Temp 98.1 F 10/21/23 15:04 Pulse 82 10/21/23 15:04 Resp 16 10/21/23 15:04 BP 154/70 10/21/23 15:04 Pulse Ox 92 10/21/23 15:04 O2 Del Method Room Air 10/21/23 15:04 10/21/23 10/21/23 10/21/23 06:59 14:59 22:59 Intake Total 1027.5 / 2957.5 463 / 463 Output Total 150 / 2250 Balance 877.5 / 707.5 463 / 463 Weight last 48 hrs Weight 66.706 kg Weight 65.453 kg Physical Exam 2 Narrative: General: Alert. In acute distress because of pain during dressing changes Mouth: No erythema or tonsilar enlargement. No masses noted. No teeth present. Neck: No thyromegaly. No lymphadenopathy. Heart: Regular rate and rhythm. No murmurs. Lungs: Clear to auscultation bilaterally. No wheezes, crackles or ronchi. Abdomen: Soft, non-tender. No hepatosplenomegaly. Extremities: Trace edema in the bilateral lower extremities. Small lesion over the left lateral tibia below the knee this minimal drainage. Lesion over the left medial leg that is open approximately 3 cm and draining a small amount of bloody discharge. Packing present. Mild purulent nature to it. No significant odor today. Urinary Catheter Management: Anderson: Cath Placed During This Visit: yes Reason for Continuing Indwelling Catheter: Assist healing open wound Urinary Catheter Date of Insertion: 10/19/23 Urinary Catheter Time of Insertion: 21:30 Data 10/21/23 03:42 10/21/23 03:42 Micro: Microbiology 10/21/23 12:53 Blood Culture - Preliminary Blood SPECIMEN COLLECTED 10/21/23 12:48 Blood Culture - Preliminary Blood SPECIMEN COLLECTED 10/18/23 10:38 Wound Culture - Final Leg - Wound Escherichia coli esbl A&P Assessment and plan (1) Abscess: Most likely in setting of brace for recent close tibial fracture. Appreciate wound culture results of ESBL E. coli. Switch to meropenem. Recheck ESR, CRP. Discussed in detail with orthopedic team. No concerns for deep bone or joint infection for now. Will consult ID for further recommendations of IV antibiotics. Patient would most likely need a prolonged IV antibiotic course. Continue with wound care dressings for now. Patient will need outpatient wound care extensive follow-up. (2) Bacteremia: Blood culture from 10/16 2 bottles positive for Staphylococcus epidermidis. Repeat blood culture. Cannot rule out contaminant. Continue with meropenem as above. Check MRSA swab. (3) Cellulitis of left lower extremity: (4) Closed fracture of tibial plateau: Orthopedic team on board. Qualifiers: Encounter type: initial encounter Laterality: left Qualified Code(s): S82.142A - Displaced bicondylar fracture of left tibia, initial encounter for closed fracture (5) Sacral decubitus ulcer, stage III: Frequent repositioning in bed. Air mattress if possible. Anderson catheterization (6) CVA (cerebral vascular accident): (7) Anemia: (8) Hypertension: Goal blood pressure less than 140/90 mmHg. Continue to monitor. Continue with home dose of metoprolol. Plan Continue other chronic home medications including Celexa 20 mg daily, home dose of hydrocodone 5 mg every 6 hours as needed, Requip, diazepam. Full code Dysphagia level 6 diet. Lovenox for DVT prophylaxis Protonix for PUD prophylaxis Discharge plan: Patient will need extensive wound care along with IV antibiotics most likely with ertapenem over the next 4 weeks. Patient lives with her . Patient would benefit with placement to SNF at least for the short- term. Physical therapy evaluation. Attestations 2 Medical Necessity Statement*: Requires further hospitalization for management of abscess and cellulitis after left knee in setting of external immobilizer leading to hematoma in a patient with recent history vertebral fracture, chronic CVA and bedbound while safe discharge planning is sought. Diagnoses Abscess L02.91 Bacteremia R78.81 Cellulitis of left lower extremity L03.116 Closed fracture of left tibial plateau, initial encounter S82.142A Encounter type: initial encounter Laterality: left Sacral decubitus ulcer, stage III L89.153 CVA (cerebral vascular accident) I63.9 Anemia D64.9 Hypertension I10
[2023-10-21] MEDS: ropinirole 1 mg Tablet 2 MG PO (16:59)
[2023-10-21] MEDS: enoxaparin 30 mg/0.3 mL Syringe SUBCUT (16:59)
[2023-10-21] MEDS: atorvastatin 40 mg Tablet PO (21:07)
[2023-10-22] VITALS (8 sets, daily range): BP systolic 116–145; BP diastolic 66–77; PULSE 55–77; RESP 16–18; TEMP 36.4–36.9; O2SAT 92–95
[2023-10-22] MEDS: ropinirole 1 mg Tablet PO (05:22)
[2023-10-22] MEDS: meropenem 1,000 MG in sodium chloride 0.9% (plus) 50 ML 100 MG IV ×3 (05:22→20:15)
[2023-10-22] MEDS: citalopram 20 mg Tablet PO (05:22)
[2023-10-22 05:39] LABS: Basophils # 0.1 10^3/uL (0.0-0.1); Basophils % 0.8 %; Eosinophils # 0.5 10^3/uL (0.0-0.8); Eosinophils % 9.2 %; Hematocrit 31.8 % (36-47); Lymphocytes # 1.6 10^3/uL (0.8-4.8); Lymphocytes % 26.6 %; Mean Corpuscular HGB Conc 31.4 g/dL (30-55); Mean Corpuscular Hemoglobin 29.4 pg (27-33); Mean Corpuscular Volume 93.5 fl (85-98); Mean Platelet Volume 9.2 fL (7.4-10.4); Monocytes # 0.7 10^3/uL (0.2-0.9); Monocytes % 12.4 %; Neutrophils # 2.96 10^3/uL (1.8-7.7); Neutrophils % 50.2 %; Nucleated Red Blood Cells % 0 %; Platelet Count 310 10^3/cmm (157-399)
[2023-10-22 06:01] LABS: Alanine Aminotransferase 11 U/L (0-33); Albumin Level 2.7 g/dL (3.5-5.2); Alkaline Phosphatase 27 U/L (35-105); Anion Gap 10.1 (5-19); Aspartate Amino Transferase 23 U/L (0-32); Blood Urea Nitrogen 8 mg/dL (8-23); Calcium 7.9 mg/dL (8.5-10.5); Carbon Dioxide 29 mmol/L (22-29); Chloride 106 mmol/L (98-107); Globulin 3.5 g/dL (1.3-4.6); Glucose 100 mg/dL (65-115); Osmolality Calculated 290 mOsm/kg (285-295); Potassium 4.1 mmol/L (3.5-5.1); Sodium 141 mmol/L (136-145); Total Bilirubin 0.4 mg/dL (0.15-1.2); Total Protein 6.2 g/dL (6.6-8.7)
[2023-10-22 06:06] LABS: Magnesium 1.7 mg/dL (1.7-2.3)
[2023-10-22] MEDS: FUROsemide 20 mg Tablet PO (08:24)
[2023-10-22] MEDS: potassium chloride ER 20 mEq Tablet PO (08:24)
[2023-10-22] MEDS: diazePAM 5 mg Tablet PO ×2 (08:24→16:51)
[2023-10-22] MEDS: pantoprazole DR 40 mg Tablet PO (08:24)
[2023-10-22] MEDS: ferrous sulfate EC 325 mg Tablet PO (08:25)
[2023-10-22] MEDS: metoprolol tartrate 25 mg Tablet 12.5 MG PO ×2 (08:25→16:52)
[2023-10-22] MEDS: sodium chloride 0.9% 1,000 ML 75 ML IV (08:25)
--- NOTE | 2023-10-22 09:24 | PC.CHAP ---
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 operator visit [] Patient/Family/Request visit [] Outpatient visit [] Follow-up visit [] Physician referral [] Code/Alert [] Routine visit [] Staff referral [] Actively dying [] Patient sleeping [] Family support [] [] Out of room [] Palliative care [] [x] Receiving care in room [] Pre-surgical visit [] Trauma [] Long length of stay [] ICU visit [] Other: Relational/Emotional Strength [] Patient feels connected with others/family/visitors/staff [] Distress [] Loneliness/isolation [] Abandonment Spirituality of Patient [] Person of Vera [] Attends Denominational of their Vera [] Believes in Prayer [] Reads Bible or Sabianist materials [] There are Spiritual issues to be addressed Superintendent Meter Tests Interventions [] Prayer [] Active listening [] Non-anxious presence [] Spiritual/emotional support [] Crisis/trauma care [] Spiritual counseling [] Bereavement support [] Provided bereavement packet [] Provided Bible/devotional materials [] Provided toy/stuffed animal, coloring book to patient or family member [] Provided Communion [] Anointing/Humble [] Salvation [] Completed spiritual assessment [] Other: Impact on Illness or Injury [] Angry [] Fearful [] Anxious [] Often cries [] Exhaustion [] Unable to work [] Unable to attend mandaen [] Unable to walk/stand [] Unable to read [] Unable to drive [] Unable to eat/drink [] Unable to sleep [] Unable to be with family [] Patient intubated [] Other: Summary Time spent with patient
--- NOTE | 2023-10-22 09:38 | P.PN_ITS ---
Subjective 2 Subjective: Patient pleasant sitting in bed pain controlled Vitals/I&O/Wt Last Vital Signs Temp 97.5 F L 10/22/23 07:25 Pulse 68 10/22/23 08:35 Resp 16 10/22/23 08:35 BP 136/77 10/22/23 07:25 Pulse Ox 93 10/22/23 08:35 O2 Del Method Room Air 10/22/23 08:35 10/21/23 10/22/23 10/22/23 22:59 06:59 14:59 Intake Total 1467.5 / 1930.5 170 / 2100.5 1600 / 1600 Output Total 1400 / 1400 1500 / 2900 Balance 67.5 / 530.5 -1330 / -799.5 1600 / 1600 Weight last 48 hrs Weight 147 lb 5 oz Weight 147 lb 1 oz Physical Exam 2 Narrative: Dressings at this time skin dry Urinary Catheter Management: Andreson: Cath Placed During This Visit: yes Reason for Continuing Indwelling Catheter: Assist Healing of Perineal & Sacral Wounds- Incontinent Patients Urinary Catheter Date of Insertion: 10/19/23 Urinary Catheter Time of Insertion: 21:30 Data 10/22/23 05:12 10/22/23 05:12 Micro: Microbiology 10/21/23 12:53 Blood Culture - Preliminary Blood SPECIMEN COLLECTED 10/21/23 12:48 Blood Culture - Preliminary Blood SPECIMEN COLLECTED 10/18/23 10:38 Wound Culture - Final Leg - Wound Escherichia coli esbl A&P Assessment and plan (1) Closed fracture of tibial plateau: Continue current treatment Qualifiers: Encounter type: initial encounter Laterality: left Qualified Code(s): S82.142A - Displaced bicondylar fracture of left tibia, initial encounter for closed fracture Attestations 2 Medical Necessity Statement*: Per primary service Coding Level of Care Code Acute Code for Chg Fwd Diagnoses Closed fracture of left tibial plateau, initial encounter S82.142A Encounter type: initial encounter Laterality: left
[2023-10-22] MEDS: morphine 4 mg/mL SDV 1 mL 1 MG IVP (12:35)
--- NOTE | 2023-10-22 13:12 | P.PN_ITS ---
Subjective 2 Subjective: No acute event overnight. Patient has remained hemodynamically stable and afebrile. Today morning examination she is laying in the bed comfortably, drying in her notebook. Denies any nausea vomiting, headache. Vitals/I&O/Wt Last Vital Signs Temp 97.7 F 10/22/23 11:42 Pulse 57 L 10/22/23 11:42 Resp 16 10/22/23 12:35 BP 145/67 10/22/23 11:42 Pulse Ox 93 10/22/23 11:42 O2 Del Method Room Air 10/22/23 11:42 10/21/23 10/22/23 10/22/23 22:59 06:59 14:59 Intake Total 1467.5 / 1930.5 170 / 2100.5 2292.5 / 2292.5 Output Total 1400 / 1400 1500 / 2900 1600 / 1600 Balance 67.5 / 530.5 -1330 / -799.5 692.5 / 692.5 Weight last 48 hrs Weight 66.82 kg Weight 66.706 kg Physical Exam 2 Narrative: General: AOx3, no acute distress Mouth: No erythema or tonsilar enlargement. No masses noted. No teeth present. Neck: No thyromegaly. No lymphadenopathy. Heart: Regular rate and rhythm. No murmurs. Lungs: Clear to auscultation bilaterally. No wheezes, crackles or ronchi. Abdomen: Soft, non-tender. No hepatosplenomegaly. Extremities: Trace edema in the bilateral lower extremities. Small lesion over the left lateral tibia below the knee this minimal drainage. Lesion over the left medial leg that is open approximately 3 cm and draining a small amount of bloody discharge. Packing present. Mild purulent nature to it. No significant odor today. Urinary Catheter Management: Anderson: Cath Placed During This Visit: yes Reason for Continuing Indwelling Catheter: Assist Healing of Perineal & Sacral Wounds- Incontinent Patients Urinary Catheter Date of Insertion: 10/19/23 Urinary Catheter Time of Insertion: 21:30 Data 10/22/23 05:12 10/22/23 05:12 Micro: Microbiology 10/21/23 12:53 Blood Culture - Preliminary Blood SPECIMEN COLLECTED 10/21/23 12:48 Blood Culture - Preliminary Blood SPECIMEN COLLECTED 10/18/23 10:38 Wound Culture - Final Leg - Wound Escherichia coli esbl A&P Assessment and plan (1) Abscess: Most likely in setting of brace for recent close tibial fracture. Appreciate wound culture results of ESBL E. coli. Appreciate repeat ESR and CRP. Continue with IV meropenem. Most likely will continue IV meropenem and switch to ertapenem on discharge. Discussed in detail with orthopedic team. No concerns for deep bone or joint infection for now. Appreciate ID and orthopedic recommendations. Patient would most likely need a prolonged IV antibiotic course. Continue with wound care dressings for now. Patient will need outpatient wound care extensive follow-up. (2) Bacteremia: Blood culture from 10/16 2 bottles positive for Staphylococcus epidermidis. Repeat blood culture sent on 10/20. Cannot rule out contamination. Continue with meropenem as above. MRSA swab pending. (3) Cellulitis of left lower extremity: (4) Closed fracture of tibial plateau: Orthopedic team on board. Qualifiers: Encounter type: initial encounter Laterality: left Qualified Code(s): S82.142A - Displaced bicondylar fracture of left tibia, initial encounter for closed fracture (5) Sacral decubitus ulcer, stage III: Frequent repositioning in bed. Air mattress if possible. Anderson catheterization (6) CVA (cerebral vascular accident): (7) Anemia: (8) Hypertension: Goal blood pressure less than 140/90 mmHg. Continue to monitor. Continue with home dose of metoprolol. Patient's heart rate stable to low. Continue telemonitoring. Blood pressure is elevated will add low-dose amlodipine. Plan Continue other chronic home medications including Celexa 20 mg daily, home dose of hydrocodone 5 mg every 6 hours as needed, Requip, diazepam. Stop IV fluids. Full code Dysphagia level 6 diet. Lovenox for DVT prophylaxis Protonix for PUD prophylaxis Discharge plan: Patient will need extensive wound care along with IV antibiotics most likely with ertapenem over the next 4 weeks. Patient lives with her . Patient would benefit with placement to SNF at least for the short- term. Case management alerted. Physical therapy evaluation. Attestations 2 Medical Necessity Statement*: Requires further hospitalization for management of localized abscess with hematoma, cellulitis in setting of recent closed fracture of tibia secondary to immobilizer, bacteremia while safe discharge planning is sought Diagnoses Abscess L02.91 Bacteremia R78.81 Cellulitis of left lower extremity L03.116 Closed fracture of left tibial plateau, initial encounter S82.142A Encounter type: initial encounter Laterality: left Sacral decubitus ulcer, stage III L89.153 CVA (cerebral vascular accident) I63.9 Anemia D64.9 Hypertension I10
[2023-10-22] MEDS: ropinirole 1 mg Tablet 2 MG PO (16:51)
[2023-10-22] MEDS: enoxaparin 30 mg/0.3 mL Syringe SUBCUT (16:52)
--- NOTE | 2023-10-22 16:59 | PM.CONSULT ---
Providers/Reason For Consult Consulting Physician/Specialty*: Ramona Mckeon MD/ infectious disease Reason for Consult*: concern for septic joint Requesting Physician: Nathan Melendez MD Attending Physician: Nathan Melendez MD Primary Care Provider: Efren Romano MD History of Present Illness History of Present Illness Doris Clarke is a 73 year old female with a past medical history of CVA, chronic left upper extremity flexion contracture, left-sided weakness, history of chronic anemia, diastolic CHF, history of IVC filter in place, chronic LE edema. She currently presented from home on October 18, 2023 with worsening left knee wound. She recently presented into the emergency room on September 17, 2023 after having sustained a fall from bed. X-ray of the pelvis was negative for fractures. X-ray of the right thigh showed an old healing midshaft fracture. On September 18, 2023, she was back in the emergency room complaining of swelling and ecchymosis over the left knee. She had some chronic ulceration over the lateral aspect of the left leg have been chronic in nature. On this day she was found to have a left tibial plateau fracture with displacement. Patient and did not wish to proceed with any kind of surgical intervention. Her extremity was placed in a brace and she was discharged home to follow-up with orthopedics as outpatient. Of note her left leg has a prior history of fracture of the femur for which she underwent ORIF complicated by wound dehiscence and medial knee abscess. She needed to undergo irrigation and debridement with placement of wound VAC and follow-up with wound care clinic for several months afterwards. She returned home on September 17, however returned to the emergency room on September 26, 2023 with persisting complaints of swelling and hematoma on her leg. She was additionally noted to have several blisters. Case was discussed with on-call orthopedics, surgery was not advised due to the extent of swelling. It was recommended to the patient to transfer to tertiary care center for surgical intervention when she is ready however this was declined as patient was nonambulatory and surgical repair was thought to be extremely difficult without any potential benefit to increasing her level of functioning. Patient was discharged home under the care of her who felt comfortable taking care of her at the home.Patient is nonambulatory at baseline and helps with all of her ADLs, uses a Sergey lift at home. On a subsequent presented to the emergency room on October 17, 2023 with now an open wound posterior aspect that started to drain and bleed. Signed out AMA upon admission being recommended. Subsequently returned to the emergency room on October 18, 2023 after multiple ER visits as noted above. Her blood culture was now noted to be positive, 2 out of 4 bottles for Staph epidermidis. Subsequent blood cultures have not been drawn until October 21, 2023. Pus oozing from her left wound was sent for cultures and revealed the presence of ESBL E. coli. CT of the knee from October 17, 2023 showed a complex fluid collection along the medial proximal tibia, improved in size since September 18, 2023. Phlegmon was included on the differential diagnosis. There was no drainable collection. There was intense complex material noted. No evidence of osteomyelitis. Noncomplex depressed tibial plateau fracture was again seen. Infectious disease service is consulted to opine regarding need and duration of therapy, selection of abx agent Review of Systems General: Reports: ROS unobtainable due to medical condition Medications/Allergies Home Medications Medication Instructions Recorded Confirmed Last Taken Type atorvastatin 40 mg tablet (Lipitor) 40 mg PO BEDTIME 03/21/20 10/19/23 10/17/23 History citalopram 20 mg tablet (Celexa) 20 mg PO QAM 03/21/20 10/19/23 10/18/23 History ferrous sulfate 325 mg (65 mg 325 mg PO DAILY 03/21/20 10/19/23 10/18/23 History iron) tablet (Iron (ferrous sulfate)) oxybutynin chloride 5 mg tablet 5 mg PO BID 03/21/20 10/19/23 10/18/23 History ropinirole 1 mg tablet See Rx Instructions .Route .COMPLEX 03/21/20 10/19/23 10/18/23 History tizanidine 4 mg tablet 4 mg PO TID PRN Muscle Spasm 03/21/20 10/19/23 10/17/23 History trazodone 100 mg tablet 100 mg PO BEDTIME 03/21/20 10/19/23 10/17/23 History amitriptyline 25 mg tablet 25 mg PO BEDTIME 12/30/20 10/19/23 10/17/23 History diazepam 5 mg tablet 5 mg PO BID 12/30/20 10/19/23 10/18/23 History woundvac #1 ea 04/06/21 10/19/23 Unknown Rx nystatin 100,000 unit/gram topical 1 applic topical DAILY PRN Rash 01/19/23 10/19/23 07/24/23 History powder omeprazole 20 mg capsule,delayed 20 mg PO DAILY 01/19/23 10/19/23 10/18/23 History release albuterol sulfate 2.5 mg/3 mL 2.5 mg (3 mL) inhalation Q6H PRN 07/30/23 10/19/23 Unknown Rx (0.083 %) solution for nebulization shortness of breath or wheezing #75 mL hydrocodone 5 mg-acetaminophen 325 1 tab PO Q6H PRN pain #25 tabs 09/18/23 10/19/23 Unknown Rx mg tablet acetaminophen 500 mg tablet 1,000 mg PO Q8H PRN Pain 09/26/23 10/19/23 Unknown History furosemide 20 mg tablet 20 mg PO DAILY 09/26/23 10/19/23 10/18/23 History mupirocin 2 % topical ointment 1 applic topical DAILY #50 grams 09/26/23 10/19/23 Unknown Rx potassium chloride 20 mEq 20 meq PO DAILY 09/26/23 10/19/23 10/18/23 History tablet,extended release(part/cryst) promethazine-DM 6.25 mg-15 mg/5 mL 5 ml PO DAILY PRN Cough 09/26/23 10/19/23 Unknown History oral syrup cyanocobalamin (vitamin B-12) 5,000 mcg PO DAILY #30 caps 10/23/23 Unknown Rx 5,000 mcg capsule Allergies Allergy/AdvReac Type Severity Reaction Status Date / Time fluconazole Allergy Unknown Verified 09/26/23 08:52 latex Allergy Unknown Verified 09/26/23 08:52 Sulfa (Sulfonamide Allergy Unknown Verified 09/26/23 08:52 Antibiotics) Current Medications Generic Name Dose Route Start Last Admin Trade Name Freq PRN Reason Stop Dose Admin Hydrocodone Bitart/Acetaminophen 1 tab 10/18/23 15:58 10/21/23 05:11 Hydrocodone-Acetaminophen 5-325 Mg Tablet PO 1 tab Q6H PRN Administration pain Atorvastatin Calcium 40 mg 10/18/23 21:00 10/21/23 21:07 Atorvastatin 40 Mg Tablet PO 40 mg BEDTIME AQUILINO Administration Citalopram Hydrobromide 20 mg 05/25/24 06:00 10/22/23 05:22 Citalopram 20 Mg Tablet PO 20 mg QAM AQUILINO Administration Diazepam 5 mg 10/18/23 18:00 10/22/23 16:51 Diazepam 5 Mg Tablet PO 5 mg BID AQUILINO Administration Enoxaparin Sodium 30 mg 10/18/23 16:00 10/22/23 16:52 Enoxaparin 30 Mg/0.3 Ml Syringe SUBCUT 30 mg Q24H AQUILINO Administration Ferrous Sulfate 325 mg 10/19/23 09:00 10/22/23 08:25 Ferrous Sulfate Ec 325 Mg Tablet PO 325 mg DAILY AQUILINO Administration Furosemide 20 mg 10/19/23 09:00 10/22/23 08:24 Furosemide 20 Mg Tablet PO 20 mg DAILY AQUILINO Administration Meropenem 1,000 mg/ Sodium 50 mls @ 100 mls/hr 10/21/23 11:45 10/22/23 13:42 Chloride IV Infused Q8H AQUILINO Infusion Protocol Ketorolac Tromethamine 10 mg 10/18/23 15:50 10/20/23 20:55 Ketorolac 10 Mg Tablet PO 10/23/23 15:49 10 mg Q8H PRN Administration MODERATE PAIN Metoprolol Tartrate 12.5 mg 10/18/23 18:00 10/22/23 16:52 Metoprolol Tartrate 25 Mg Tablet PO 12.5 mg BID AQUILINO Administration Morphine Sulfate 1 mg 10/21/23 11:52 10/22/23 12:35 Morphine 4 Mg/Ml Sdv 1 Ml IVP 1 mg Q4H PRN Administration SEVERE PAIN Pantoprazole Sodium 40 mg 10/19/23 09:00 10/22/23 08:[address] 40 Mg Tablet PO 40 mg DAILY AQUILINO Administration Potassium Chloride 20 meq 10/19/23 09:00 10/22/23 08:24 Potassium Chloride Er 20 Meq Tablet PO 20 meq DAILY AQUILINO Administration Ropinirole HCl 1 mg 10/19/23 06:00 10/22/23 05:22 Ropinirole 1 Mg Tablet PO 1 mg QAM AQUILINO Administration Ropinirole HCl 2 mg 10/18/23 18:00 10/22/23 16:51 Ropinirole 1 Mg Tablet PO 2 mg QPM AQUILINO Administration PFSH Acute PFSH: Medical History Infection due to ESBL-producing Escherichia coli DVT prophylaxis Dysphagia Pneumonia Sepsis Wound of left lower extremity Fracture of lateral malleolus of left fibula Adult BMI 40.0-44.9 kg/sq m Anemia UTI (urinary tract infection) Diastolic CHF Supracondylar fracture of left femur Fracture of distal end of femur Chronic antibiotic suppression Has been taking nitrofurantoin for last 6 months as per the Chronic anticoagulation Coumadin 2 and 3mg daily depending on INR 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 Presence of IVC filter Lymphedema Venous stasis dermatitis Chronic anemia Chronic kidney disease, stage II (mild) Dyslipidemia Hypertension Left-sided weakness CVA (cerebral vascular accident) Surgical History History of hip surgery H/O shoulder surgery History of hysterectomy S/P cholecystectomy Family History Other CAD (coronary artery disease) Hypertension Stroke Social History Smoking and tobacco/nicotine status: never used tobacco/nicotine Alcohol intake: never Substance/Drug Use: never Household members: spouse Housing: House Vitals/I&O/Wt Last Vital Signs Temp 97.8 F 10/22/23 16:00 Pulse 68 10/22/23 16:00 Resp 18 10/22/23 16:00 BP 145/76 10/22/23 16:00 Pulse Ox 95 10/22/23 16:00 O2 Del Method Room Air 10/22/23 16:00 10/22/23 10/22/23 10/22/23 06:59 14:59 22:59 Intake Total 170 / 2100.5 2342.5 / 2342.5 Output Total 1500 / 2900 1600 / 1600 Balance -1330 / -799.5 742.5 / 742.5 Weight last 48 hrs Weight 66.82 kg Weight 66.706 kg Physical Exam Narrative: General: No acute distress, AO x1 HEENT: PERRLA, pupils bilaterally equal and reactive, pallors not present Chest: Normal vesicular breath sounds, no added sounds, equal good air entry bilaterally CVS: S1-S2 regular, no murmurs, no tachycardia, no gallops, no rubs Abdomen: Soft, nontender, no organomegaly, bowel sounds present Neuro: No focal deficits, no facial deformity, AO x3, power 5/5 in all limbs Extremities: Incision over the left lateral knee, appears to have a small opening over the inferior aspect of this incision. Urinary Catheter Management: Anderson: Cath Placed During This Visit: yes Reason for Continuing Indwelling Catheter: Assist Healing of Perineal & Sacral Wounds- Incontinent Patients Urinary Catheter Date of Insertion: 10/19/23 Urinary Catheter Time of Insertion: 21:30 Data 10/22/23 05:12 10/23/23 04:31 Micro: Microbiology 10/21/23 12:53 Blood Culture - Preliminary Blood NEGATIVE TO DATE 10/21/23 12:48 Blood Culture - Preliminary Blood NEGATIVE TO DATE Other data: Laboratory Results WBC 5.90 10^3/uL (3.29-11.43) 10/22/23 05:12 RBC 3.40 10^6/uL (3.85-5.65) L 10/22/23 05:12 Hgb 10.00 g/dL (11.27-16.99) L 10/22/23 05:12 Hct 31.8 % (36-47) L 10/22/23 05:12 MCV 93.5 fl (85-98) 10/22/23 05:12 MCH 29.4 pg (27-33) 10/22/23 05:12 MCHC 31.4 g/dL (30-55) 10/22/23 05:12 RDW 15.0 % (12.1-15.1) 10/22/23 05:12 Plt Count 310 10^3/cmm (157-399) 10/22/23 05:12 MPV 9.2 fL (7.4-10.4) 10/22/23 05:12 Neut % (Auto) 50.2 % 10/22/23 05:12 Lymph % (Auto) 26.6 % 10/22/23 05:12 [place] % (Auto) 12.4 % 10/22/23 05:12 Eos % (Auto) 9.2 % 10/22/23 05:12 Baso % (Auto) 0.8 % 10/22/23 05:12 Neut # (Auto) 2.96 10^3/uL (1.8-7.7) 10/22/23 05:12 Lymph # (Auto) 1.6 10^3/uL (0.8-4.8) 10/22/23 05:12 [place] # (Auto) 0.7 10^3/uL (0.2-0.9) 10/22/23 05:12 Eos # (Auto) 0.5 10^3/uL (0.0-0.8) 10/22/23 05:12 Baso # (Auto) 0.1 10^3/uL (0.0-0.1) 10/22/23 05:12 Nucleated RBC % (auto) 0 % 10/22/23 05:12 Nucleated RBCs # 0.0 /100WBC 10/22/23 05:12 ESR 16 mm/hr (0-15) H 10/21/23 03:42 Sodium 141 mmol/L (136-145) 10/22/23 05:12 Potassium 4.1 mmol/L (3.5-5.1) 10/22/23 05:12 Chloride 106 mmol/L (98-107) 10/22/23 05:12 Carbon Dioxide 29 mmol/L (22-29) 10/22/23 05:12 Anion Gap 10.1 (5-19) 10/22/23 05:12 BUN 8 mg/dL (8-23) 10/22/23 05:12 Creatinine 0.5 mg/dL (0.5-0.9) 10/22/23 05:12 GFR Calculation Not Reportable 10/22/23 05:12 Glucose 100 mg/dL (65-115) 10/22/23 05:12 Calculated Osmolality 290 mOsm/kg (285-295) 10/22/23 05:12 Calcium 7.9 mg/dL (8.5-10.5) L 10/22/23 05:12 Magnesium 1.7 mg/dL (1.7-2.3) 10/22/23 05:12 Iron 31 ug/dL (37-145) L 10/21/23 00:00 TIBC 148 mcg/dl 10/21/23 00:00 % Saturation 20.9 % (20-50) 10/21/23 00:00 Unsat Iron Binding 117 ug/dL (112-347) 10/21/23 00:00 Total Bilirubin 0.4 mg/dL (0.15-1.2) 10/22/23 05:12 AST 23 U/L (0-32) 10/22/23 05:12 ALT 11 U/L (0-33) 10/22/23 05:12 Alkaline Phosphatase 27 U/L (35-105) L 10/22/23 05:12 C-Reactive Protein 5.9 mg/L (0.0-4.9) H 10/21/23 03:42 C-React Prot High Sens 0.600 mg/dL (0.0-0.3) H 10/21/23 03:42 Total Protein 6.2 g/dL (6.6-8.7) L 10/22/23 05:12 Albumin 2.7 g/dL (3.5-5.2) L 10/22/23 05:12 Globulin 3.5 g/dL (1.3-4.6) 10/22/23 05:12 Vitamin B12 205 pg/mL (232-1245) L 10/21/23 00:00 Folate 8.1 ng/mL (4.8-37.3) 10/21/23 03:42 Microbiology 10/21/23 12:53 Blood Blood Culture - Preliminary NEGATIVE TO DATE 10/21/23 12:48 Blood Blood Culture - Preliminary NEGATIVE TO DATE 10/18/23 10:38 Leg - Wound Wound Culture - Final Escherichia coli esbl Wound Culture Final 10/21/23-1106 Organism 1 Escherichia coli esbl Growth FEW HEAVY MIXED SUPERFICIAL ISABEL ON DAY 3 Esccolesb M.I.C. RX --------- ------ * Amikacin <=16 S * Amoxicillin/Clavulanate 16/8 I * Ampicillin >16 R * Ampicillin/Sulbactam >16/8 R * Aztreonam >16 R * Cefepime >16 R * Ceftriaxone >32 R * Cefuroxime >16 R * Ciprofloxacin >2 R * Gentamicin <=2 S * Imipenem <=1 S * Levofloxacin >4 R * Tetracycline <=4 S * Trimethoprim/Sulfamethoxazole >2/38 R * Piperacillin/Tazobactam <=16 S [facility] [address] [place] [id number] RADHA LOWE, TEAM ASSEMBLER NAME: Doris Clarke LOC: ER U #: [id number] AGE/SX: 73/F ROOM: RE10/17/[address]: Ginny Bird MD : 1950 BED: DIS: FAX #: STATUS: DEP ER TLOC: Spec #: [id number] Cheryl: 10/17/23-1023 Status: COMP Req #: [id number] Recd: 10/17/23-[address]: Ginny Bird MD Src: Blood SpDesc: Ordered: Bcult Procedure Result Verified Site Blood Culture Final 10/22/23-1037 2 OF 4 BOTTLES POSITIVE, FROM SAME COLLECTION SITE DIRECT GRAM STAIN: GRAM POSITIVE COCCI IN TETRADS Detection of mecA indicates presence of Methicillin Resistant Staphylococcus spp. Organism 1 Staphylococcus epidermidis Growth 2 BOTTLES Gram Stain Charge Charge for Gram Stain CRITICAL RESULT YES/NO: YES CRITICAL CALLED BY: YOSHI TO AND READ BACK BY: [email or web address] DATE: 10/18/23 TIME: 612 S epidermi M.I.C. RX --------- ------ * Ampicillin >8 R * Ciprofloxacin <=1 S * Clindamycin 2 I * Erythromycin >4 R * Gentamicin <=4 S * Levofloxacin <=1 S * Linezolid 2 S * Oxacillin >2 R * Penicillin >8 R * Rifampin <=1 S * Tetracycline >8 R * Trimethoprim/Sulfamethoxazole >2/38 R Vancomycin 1 S Daptomycin <=0.5 S Blood Culture Preliminary (changed) 10/20/23-1101 2 OF 4 BOTTLES POSITIVE DIRECT GRAM STAIN: GRAM POSITIVE COCCI IN TETRADS Detection of mecA indicates presence of Methicillin Resistant Staphylococcus spp. Organism 1 Staphylococcus epidermidis Growth 2 BOTTLES Gram Stain Charge Charge for Gram Stain CRITICAL RESULT YES/NO: YES CRITICAL [place]ED BY: YOSHI TO AND READ BACK [place]: [facility] [place]: 10/18/23 TIME: 612 S epidermi M.I.C. RX --------- ------ * Ampicillin >8 R * Ciprofloxacin <=1 S * Clindamycin 2 I * Erythromycin >4 R * Gentamicin <=4 S * Levofloxacin <=1 S * Linezolid 2 S * Oxacillin >2 R * Penicillin >8 R * Rifampin <=1 S * Tetracycline >8 R * Trimethoprim/Sulfamethoxazole >2/38 R Vancomycin 1 S Daptomycin <=0.5 S Blood Culture Preliminary (changed) 10/19/23-1304 2 OF 4 BOTTLES POSITIVE DIRECT GRAM STAIN: GRAM POSITIVE COCCI IN TETRADS Detection of mecA indicates presence of Methicillin Resistant Staphylococcus spp. RESULTS TO FOLLOW Organism 1 Staphylococcus species Growth 2 BOTTLES CRITICAL RESULT YES/NO: YES CRITICAL CALLED BY: YOSHI TO AND READ BACK BY: Mapp DATE: 10/18/23 TIME: 612 Blood Culture Preliminary (changed) 10/18/23-612 1 OF 4 BOTTLES POSITIVE DIRECT GRAM STAIN: GRAM POSITIVE COCCI IN TETRADS RESULTS TO FOLLOW CRITICAL RESULT YES/NO: YES CRITICAL CALLED BY: LM TO AND READ BACK [place]: [facility] [place]: 10/18/23 TIME: 0613 Blood Culture Preliminary (changed) 10/17/23-1044 SPECIMEN COLLECTED NOTICE OF CONFIDENTIALITY The recipient of this confidential patient information is prohibited from disclosing the information to any other libertarian and is required to destroy the information after the stated need has been fulfilled. Anyone receiving this data in error should notify the [facility] immediately by telephone: . Thank you for your cooperation. END OF REPORT Ordering Provider/Ordering MD: Ginny Bird MD Date of Service: 10/17/23 Procedure(s): CT knee LT w con [id number] Accession Number(s): [id number] Report Number: [id number] WS: [id number] CT LEFT KNEE WITH CONTRAST HISTORY: Open wound. Recent tibial plateau fracture. Technique: All CT scans at [facility] use at least one of these dose optimization techniques: automated exposure control; mA and/or kV adjustment per patient size (includes targeted exams where dose is matched to clinical indication); or iterative reconstruction. DLP: 487.41 mGy.cm COMPARISON: 09/18/2023 There is a complex soft tissue mass along the medial proximal tibia extending along a tract superficially where there may be a small ulceration. This collection measures transversely by 10 cm, AP by 2.9 cm and over a length of 8.4 cm. There is mild heterogeneity. No fluid-filled center. This mass was also described on the 09/18/2023 consistent with a hematoma. This mass has moderately improved in size although now does extend along the tract superficially. There is no air along the tract. There is mild diffuse soft tissue edema surrounding the knee. Reidentified is a slightly depressed complex tibial plateau fracture. Prior fracture repair of the distal femur with plate and screw fixation is unchanged. No new fracture. No changes of osteomyelitis. CT/CT knee LT w con [id number] IMPRESSION: 1. Complex fluid collection along the medial proximal tibia is reidentified and moderately improved in size since 09/18/2023. This is thought to be related to a posttraumatic hematoma. 2. Differential would include phlegmon. There is no drainable collection. This is complex material with mild diffuse enhancement. 3. No osteomyelitis. 4. Known, complex depressed tibial plateau fracture. 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 Patient has significant comorbidities, is nonambulatory at baseline, suffered from a recent tibial plateau fracture on the left leg for which she is on conservative management. She is overall a poor surgical candidate due to history of lymphedema and other comorbidities, nonoperative intervention is recommended from orthopedic standpoint. Due to her fall she has suffered ulcerations. Has a prior history of wound dehiscence and poor wound healing as such. CT of the left knee showed a complex fluid collection upon arrival along the medial proximal tibia. Reviewing radiology report it appears this is more likely to be a hematoma as was identified after her fall in the emergency room. There is a small ulceration which is extending superficially. Per review of Ortho notes and this CAT scan, height appears changes are not extending into the underlying joint. No current signs of osteomyelitis or septic joint. Superficial cultures from this tract have revealed ESBL E. coli Recommend to treat patient with ertapenem 1 g IV every 24 hours for treatment of complicated skin and soft tissue infection. Total duration of treatment recommend 4 weeks. Planning longer treatment rather than a short-term treatment course due to past history of wound dehiscence, delayed wound healing, high risk of progression of infection into the surrounding bony structures. If indeed the infection does spread into the bony structures she may not be a candidate for any aggressive procedures such as I&D and washouts, therefore prefer to treat aggressively with antibiotics at this point. While on the above antibiotics, obtain weekly CBC, liver function, creatinine, CRP and fax to the infectious disease office for review. Blood culture showing Staph epidermidis from a recent ER visit likely to represent contamination. Repeat blood cultures taken on this admission on 527 thus far reveals no growth. Plan discussed with hospitalist team. Consult Attestations Medical Necessity Statement: Per admitting attending Coding Level of Care Code Acute Code for Chg Fwd High MDM includes number and complexity of problems actively addressed during encounter, amount and/or complexity of data reviewed/ordered and described risk of complication, morbidity or mortality of management as documented Diagnoses Abscess L02.91 Cellulitis of left lower extremity L03.116 Infection due to ESBL-producing Escherichia coli A49.8; Z16.12
[2023-10-22] MEDS: atorvastatin 40 mg Tablet PO (20:15)
[2023-10-23] VITALS (7 sets, daily range): BP systolic 118–162; BP diastolic 61–79; PULSE 54–79; RESP 16–18; TEMP 36.4–36.8; O2SAT 93–96
[2023-10-23] MEDS: meropenem 1,000 MG in sodium chloride 0.9% (plus) 50 ML 100 MG IV (05:16)
[2023-10-23] MEDS: ropinirole 1 mg Tablet PO (05:16)
[2023-10-23] MEDS: citalopram 20 mg Tablet PO (05:16)
[2023-10-23 05:25] LABS: Magnesium 1.9 mg/dL (1.7-2.3)
[2023-10-23 05:29] LABS: Alanine Aminotransferase 12 U/L (0-33); Albumin Level 2.8 g/dL (3.5-5.2); Alkaline Phosphatase 28 U/L (35-105); Anion Gap 10.6 (5-19); Aspartate Amino Transferase 19 U/L (0-32); Blood Urea Nitrogen 15 mg/dL (8-23); Calcium 9.1 mg/dL (8.5-10.5); Carbon Dioxide 31 mmol/L (22-29); Chloride 103 mmol/L (98-107); Creatinine Clr Calc Pharmacy 63.9353; Globulin 3.7 g/dL (1.3-4.6); Glucose 96 mg/dL (65-115); Osmolality Calculated 291 mOsm/kg (285-295); Potassium 4.6 mmol/L (3.5-5.1); Sodium 140 mmol/L (136-145); Total Bilirubin 0.5 mg/dL (0.15-1.2); Total Protein 6.5 g/dL (6.6-8.7)
[2023-10-23] MEDS: FUROsemide 20 mg Tablet PO (08:39)
[2023-10-23] MEDS: diazePAM 5 mg Tablet PO ×2 (08:39→17:39)
[2023-10-23] MEDS: metoprolol tartrate 25 mg Tablet 12.5 MG PO ×2 (08:39→17:39)
[2023-10-23] MEDS: pantoprazole DR 40 mg Tablet PO (08:39)
[2023-10-23] MEDS: potassium chloride ER 20 mEq Tablet PO (08:39)
[2023-10-23] MEDS: ferrous sulfate EC 325 mg Tablet PO (08:39)
--- NOTE | 2023-10-23 10:34 | PC.CHAP ---
Pastoral Care Encounter/Spiritual Assessment Type of Contact [] Declined rock drill operator visit [] Patient/Family/Request visit [] Outpatient visit [] Follow-up visit [] Physician referral [] Code/Alert [x] Routine visit [] Staff referral [] Actively dying [] Patient sleeping [] Family support [] [] Out of room [] Palliative care [] [] Receiving care in room [] Pre-surgical visit [] Trauma [] Long length of stay [] ICU visit [] Other: Relational/Emotional Strength [] Patient feels connected with others/family/visitors/staff [x] Distress [] Loneliness/isolation [] Abandonment Spirituality of Patient [] Person of Vera [] Attends Zoroastrianism of their Vera [] Believes in Prayer [] Reads Bible or Yazdanism materials [] There are Spiritual issues to be addressed Sheet Metal Pattern Cutter Interventions [x] Prayer [] Active listening [] Non-anxious presence [] Spiritual/emotional support [] Crisis/trauma care [] Spiritual counseling [] Bereavement support [] Provided bereavement packet [] Provided Bible/devotional materials [] Provided toy/stuffed animal, coloring book to patient or family member [] Provided Communion [] Anointing/[place] [] Salvation [] Completed spiritual assessment [] Other: Impact on Illness or Injury [] Angry [] Fearful [] Anxious [] Often cries [] Exhaustion [] Unable to work [] Unable to attend judaism [] Unable to walk/stand [] Unable to read [] Unable to drive [] Unable to eat/drink [] Unable to sleep [] Unable to be with family [] Patient intubated [] Other: Summary Time spent with patient 5 min
[2023-10-23 11:23] LABS: SARS Covid-2 Antigen negative (Negative)
--- NOTE | 2023-10-23 11:58 | P.DS_ITS ---
Discharge Providers Date of Admission: 10/18/23 12:38 Date of Discharge: October 23, 2023 Attending Provider at Admission: Anibal Arriola MD Attending Provider at Discharge: Nathan Melendez MD Primary Care Provider: Efren Romano MD Diagnoses at Discharge Discharge Diagnosis (1) Abscess: Status: Acute (2) Cellulitis of left lower extremity: Status: Acute (3) Infection due to ESBL-producing Escherichia coli: Status: Acute Reason for Visit Reason for Visit: left leg pain Hospital Course Hospital Course Doris Clarke is a 73 year old female with a past medical history of CVA, chronic left upper extremity flexion contracture, left-sided weakness, history of chronic anemia, diastolic CHF, history of IVC filter in place, chronic LE edema. She currently presented from home on October 18, 2023 with worsening left knee wound. She recently presented into the emergency room on September 17, 2023 after having sustained a fall from bed. X-ray of the pelvis was negative for fractures. X- ray of the right thigh showed an old healing midshaft fracture. On September 18, 2023, she was back in the emergency room complaining of swelling and ecchymosis over the left knee. She had some chronic ulceration over the lateral aspect of the left leg have been chronic in nature. On this day she was found to have a left tibial plateau fracture with displacement. Patient and did not wish to proceed with any kind of surgical intervention. Her extremity was placed in a brace and she was discharged home to follow-up with orthopedics as outpatient. Of note her left leg has a prior history of fracture of the femur for which she underwent ORIF complicated by wound dehiscence and medial knee abscess. She needed to undergo irrigation and debridement with placement of wound VAC and follow-up with wound care clinic for several months afterwards. She returned home on September 17, however returned to the emergency room on September 26, 2023 with persisting complaints of swelling and hematoma on her leg. She was additionally noted to have several blisters. Case was discussed with on-call orthopedics, surgery was not advised due to the extent of swelling. It was recommended to the patient to transfer to tertiary care center for surgical intervention when she is ready however this was declined as patient was nonambulatory and surgical repair was thought to be extremely difficult without any potential benefit to increasing her level of functioning. Patient was discharged home under the care of her who felt comfortable taking care of her at the home.Patient is nonambulatory at baseline and helps with all of her ADLs, uses a Sergey lift at home. On a subsequent presented to the emergency room on October 17, 2023 with now an open wound posterior aspect that started to drain and bleed. Signed out AMA upon admission being recommended. Subsequently returned to the emergency room on October 18, 2023 after multiple ER visits as noted above. Her blood culture was now noted to be positive, 2 out of 4 bottles for Staph epidermidis. Subsequent blood cultures have not been drawn until October 21, 2023. Pus oozing from her left wound was sent for cultures and revealed the presence of ESBL E. coli. CT of the knee from October 17, 2023 showed a complex fluid collection along the medial proximal tibia, improved in size since September 18, 2023. Phlegmon was included on the differential diagnosis. There was no drainable collection. There was intense complex material noted. No evidence of osteomyelitis. Noncomplex depressed tibial plateau fracture was again seen. Patient was started on broad-spectrum IV antibiotics along with daily wound care. ID and orthopedic surgery was consulted. Patient was deemed not a surgical candidate by the orthopedic team. Going forward patient would need IV antibiotics for at least 4 weeks along with aggressive wound care with daily wound care dressings. Safe discharge plans were discussed in detail with the patient and her at bedside. Options discussed were as follows. 1 would be to be discharged to SNF for a short while to finish a course of IV antibiotics along with wound care dressings versus possible discharge to home with hospice that she is at a higher risk of sepsis, septic shock or loss of limb as follows. Patient and family both discussed in detail and wanted to be discharged to SNF. At the completion of IV antibiotic course and the wound is not healing they will pursue hospice at that time. PICC line was placed on 10/22. She has been discharged in hemodynamically stable condition on IV Ativan 1 g daily for next 4 weeks with advised to follow-up with orthopedic team and ID as an outpatient. She will need to have weekly CBC, creatinine, LFTs, CRP done which will be followed by ID clinic. PICC line should be removed after completion of IV antibiotic course. She should continue wound care dressings going forward. During hospitalization CODE STATUS also discussed in detail with the patient and she wanted to be DNR/DNI. Physical Exam Narrative: General: AOx3, no acute distress Mouth: No erythema or tonsilar enlargement. No masses noted. No teeth present. Neck: No thyromegaly. No lymphadenopathy. Heart: Regular rate and rhythm. No murmurs. Lungs: Clear to auscultation bilaterally. No wheezes, crackles or ronchi. Abdomen: Soft, non-tender. No hepatosplenomegaly. Extremities: Trace edema in the bilateral lower extremities. Small lesion over the left lateral tibia below the knee this minimal drainage. Lesion over the left medial leg that is open approximately 3 cm and draining a small amount of bloody discharge. Packing present. Mild purulent nature to it. No significant odor today. Urinary Catheter Management: Anderson: Cath Placed During This Visit: yes Reason for Continuing Indwelling Catheter: Assist healing open wound Urinary Catheter Date of Insertion: 10/19/23 Urinary Catheter Time of Insertion: 21:30 Discharge Data Studies Completed and Pending Pending at discharge Category Date Time Status Blood Culture Stat Lab 10/21/23 12:53 Results MRSA [Methicillin Resistant S.aureu] Routine Lab 10/21/23 11:33 Ordered Laboratory Results WBC 5.90 10^3/uL (3.29-11.43) 10/22/23 05:12 RBC 3.40 10^6/uL (3.85-5.65) L 10/22/23 05:12 Hgb 10.00 g/dL (11.27-16.99) L 10/22/23 05:12 Hct 31.8 % (36-47) L 10/22/23 05:12 MCV 93.5 fl (85-98) 10/22/23 05:12 MCH 29.4 pg (27-33) 10/22/23 05:12 MCHC 31.4 g/dL (30-55) 10/22/23 05:12 RDW 15.0 % (12.1-15.1) 10/22/23 05:12 Plt Count 310 10^3/cmm (157-399) 10/22/23 05:12 MPV 9.2 fL (7.4-10.4) 10/22/23 05:12 Neut % (Auto) 50.2 % 10/22/23 05:12 Lymph % (Auto) 26.6 % 10/22/23 05:12 Hall % (Auto) 12.4 % 10/22/23 05:12 Eos % (Auto) 9.2 % 10/22/23 05:12 Baso % (Auto) 0.8 % 10/22/23 05:12 Neut # (Auto) 2.96 10^3/uL (1.8-7.7) 10/22/23 05:12 Lymph # (Auto) 1.6 10^3/uL (0.8-4.8) 10/22/23 05:12 Hall # (Auto) 0.7 10^3/uL (0.2-0.9) 10/22/23 05:12 Eos # (Auto) 0.5 10^3/uL (0.0-0.8) 10/22/23 05:12 Baso # (Auto) 0.1 10^3/uL (0.0-0.1) 10/22/23 05:12 Nucleated RBC % (auto) 0 % 10/22/23 05:12 Nucleated RBCs # 0.0 /100WBC 10/22/23 05:12 ESR 16 mm/hr (0-15) H 10/21/23 03:42 Sodium 140 mmol/L (136-145) 10/23/23 04:31 Potassium 4.6 mmol/L (3.5-5.1) 10/23/23 04:31 Chloride 103 mmol/L (98-107) 10/23/23 04:31 Carbon Dioxide 31 mmol/L (22-29) H 10/23/23 04:31 Anion Gap 10.6 (5-19) 10/23/23 04:31 BUN 15 mg/dL (8-23) 10/23/23 04:31 Creatinine 0.5 mg/dL (0.5-0.9) 10/23/23 04:31 GFR Calculation Not Reportable 10/23/23 04:31 Glucose 96 mg/dL (65-115) 10/23/23 04:31 Calculated Osmolality 291 mOsm/kg (285-295) 10/23/23 04:31 Calcium 9.1 mg/dL (8.5-10.5) 10/23/23 04:31 Magnesium 1.9 mg/dL (1.7-2.3) 10/23/23 04:31 Iron 31 ug/dL (37-145) L 10/21/23 00:00 TIBC 148 mcg/dl 10/21/23 00:00 % Saturation 20.9 % (20-50) 10/21/23 00:00 Unsat Iron Binding 117 ug/dL (112-347) 10/21/23 00:00 Total Bilirubin 0.5 mg/dL (0.15-1.2) 10/23/23 04:31 AST 19 U/L (0-32) 10/23/23 04:31 ALT 12 U/L (0-33) 10/23/23 04:31 Alkaline Phosphatase 28 U/L (35-105) L 10/23/23 04:31 C-Reactive Protein 5.9 mg/L (0.0-4.9) H 10/21/23 03:42 C-React Prot High Sens 0.600 mg/dL (0.0-0.3) H 10/21/23 03:42 Total Protein 6.5 g/dL (6.6-8.7) L 10/23/23 04:31 Albumin 2.8 g/dL (3.5-5.2) L 10/23/23 04:31 Globulin 3.7 g/dL (1.3-4.6) 10/23/23 04:31 Vitamin B12 205 pg/mL (232-1245) L 10/21/23 00:00 Folate 8.1 ng/mL (4.8-37.3) 10/21/23 03:42 SARS-CoV-2 Ag (Rapid) negative (Negative) 10/23/23 10:55 Microbiology 10/21/23 12:53 Blood Blood Culture - Preliminary NEGATIVE TO DATE 10/21/23 12:48 Blood Blood Culture - Preliminary NEGATIVE TO DATE 10/18/23 10:38 Leg - Wound Wound Culture - Final Escherichia coli esbl CT knee: IMPRESSION: 1. Complex fluid collection along the medial proximal tibia is reidentified and moderately improved in size since 09/18/2023. This is thought to be related to a posttraumatic hematoma. 2. Differential would include phlegmon. There is no drainable collection. This is complex material with mild diffuse enhancement. 3. No osteomyelitis. 4. Known, complex depressed tibial plateau fracture. Vitals Last Vital Signs Temp 98.0 F 10/23/23 07:29 Pulse 67 10/23/23 08:31 Resp 16 10/23/23 08:31 BP 145/68 10/23/23 07:29 Pulse Ox 93 10/23/23 08:31 O2 Del Method Room Air 10/23/23 08:31 Discharge Plan Discharge Patient Disposition: Xfer SNF Condition: Stable Prescriptions: New cyanocobalamin (vitamin B-12) 5,000 mcg capsule 5,000 mcg PO DAILY Qty: 30 0RF Continued (DME) woundvac See Rx Instructions .Route .MEDSUPPLY Qty: 1 0RF Rx Instructions: As directed atorvastatin [Lipitor] 40 mg tablet 40 mg PO BEDTIME ropinirole 1 mg tablet See Rx Instructions .ROUTE .COMPLEX Rx Instructions: 1mg po q am and 2mg po qpm tizanidine 4 mg tablet 4 mg PO TID PRN (Reason: Muscle Spasm) citalopram [Celexa] 20 mg tablet 20 mg PO QAM trazodone 100 mg tablet 100 mg PO BEDTIME ferrous sulfate [Iron (ferrous sulfate)] 325 mg (65 mg iron) Tablet 325 mg PO DAILY oxybutynin chloride 5 mg tablet 5 mg PO BID amitriptyline 25 mg tablet 25 mg PO BEDTIME diazepam 5 mg tablet 5 mg PO BID omeprazole 20 mg capsule,delayed release(DR/EC) 20 mg PO DAILY nystatin 100,000 unit/gram Powder 1 applic TOPICAL DAILY PRN (Reason: Rash) hydrocodone-acetaminophen 5-325 mg tablet 1 tab PO Q6H PRN (Reason: pain) Qty: 25 0RF albuterol sulfate 2.5 mg /3 mL (0.083 %) solution for nebulization 2.5 mg inhalation Q6H PRN (Reason: shortness of breath or wheezing) Qty: 75 0RF promethazine-DM 6.25-15 mg/5 mL syrup 5 ml PO DAILY PRN (Reason: Cough) potassium chloride 20 mEq tablet,ER particles/crystals 20 meq PO DAILY furosemide 20 mg tablet 20 mg PO DAILY acetaminophen 500 mg tablet 1,000 mg PO Q8H PRN (Reason: Pain) mupirocin 2 % ointment 1 applic topical DAILY Qty: 50 0RF Discontinued metoprolol tartrate 25 mg tablet 12.5 mg PO BID nitrofurantoin macrocrystal 50 mg capsule 50 mg PO DAILY Discharge Orders: Discharge Order (Routine); Ordered 10/23/23 Ordered By: Nathan Melendez Referrals: Efren Romano MD [Primary Care Provider] - 4-7 days Discharge Diet: Usual diet Discharge Activity: Resume usual activity and Increase activity as tolerated Patient Instructions: Opioid Safety Activity Restrictions/Additional Instructions: IV ertapenem 1 g daily for next 4 weeks. Labs will be followed with ID clinic. Weekly CBC, creatinine, LFT and CRP to be done. Remove PICC line after completion of IV antibiotic course. Do not take metoprolol anymore. Daily wound care dressing. Discharge Attestations Time Spent in Discharge Care*: greater than 30 min Specific Discharge Activities: educating patient, educating and/or supporting family/caregiver, discussing with pcp/other providers, discussing with human services case manager/social workers/dc planners, documenting/other paperwork and evaluating patient/reviewing data Status at Discharge: Cognitive status at discharge: mildly impaired cognition , Behavioral status at discharge: cooperative , Functional status at discharge: bed bound , Overall status at discharge: patient is progressing back to baseline Quality Metrics Clinical Quality Measures [ No reported AMI, CVA or VTE this stay] Coding Level of Care Code 64926 Total time (in minutes) for Discharge: 60 Diagnoses Abscess L02.91 Cellulitis of left lower extremity L03.116 Infection due to ESBL-producing Escherichia coli A49.8; Z16.12
--- NOTE | 2023-10-23 13:18 | XR_ITS ---
WS: [id number] Exam: XR chest 1V portable [id number] Date/Time of Exam: 10/23/2023 1:47 PM Reason For Exam: Post PICC insertion Comparison 07/24/2023. The lungs are clear and fully inflated. Unremarkable cardiomediastinal silhouette for technique. A ri ght-sided PICC line ends at the cavoatrial junction. Advanced degenerative changes of both shoulders. Rotator cuff anchor in the LEFT humeral head. XR/XR chest 1V portable [id number] IMPRESSION: 1. No acute cardiopulmonary finding. 2. Right-sided PICC line appearing to end at the expected region of the cavoatr ial junction.
[2023-10-23] MEDS: meropenem 1,000 MG in sodium chloride 0.9% (plus) 50 ML 50 MG IV (13:21)
--- NOTE | 2023-10-23 14:41 | PICC.NOTE ---
Single lumen PICC placed to right basilic vein. Referred to vascular access nurse for PICC placement due to need for IV antibiotics x 4 weeks. Risks and benefits discussed and informed consent obtained from patient via verbal consent and two nurse signatures. Right arm assessed with right basilc vein measuring 4.4 mm, straight, and apparent best choice for placement. Using sterile technique and MST, right basilic vein accessed x 1 stick. Mid-arm circumference measured 10 cm from right AC 33 cm. Trimmed cath 44 cm with 1 cm external length noted. CXR shows tip in cavoatrial junction, in good position for use per radiologist. Line secured with stat-lock. Insertion site covered with Biopatch and TSM. Report given to bedside nurse, JOHN Schumacher.
--- NOTE | 2023-10-23 14:58 | PC.NURSE ---
Report called to Jia at [facility].
[2023-10-23] MEDS: HYDROcodone-acetaminophen 5-325 mg Tablet 1 TAB PO (17:39)
[2023-10-23] MEDS: ropinirole 1 mg Tablet 2 MG PO (17:39)
[2023-10-24 14:15] LABS: Methicillin-Resist S.aureu PCR DETECTED (NOT DETECTED)
== END 2023-10-23 19:18 | disposition skilled nursing facility (03) | DRG 602 ==
LOC: ER 12:20 → MEDSURG 12:39
PROVIDERS: Family Medicine; Admitting Provider Family Medicine; Emergency Provider Emergency Medicine; PCP Family Medicine; Visit Provider Student in an Organized Health Care Education/Training Program
DX: L02.416 Cutaneous abscess of left lower limb (principal); L89.153 Pressure ulcer of sacral region, stage 3; Z16.12 Extended spectrum beta lactamase (ESBL) resistance; I13.0 Hypertensive heart and chronic kidney disease with heart failure and stage 1 through stage 4 chronic kidney disease, or unspecified chronic kidney disease; I50.32 Chronic diastolic (congestive) heart failure; I69.954 Hemiplegia and hemiparesis following unspecified cerebrovascular disease affecting left non-dominant side; S82.142G Displaced bicondylar fracture of left tibia, subsequent encounter for closed fracture with delayed healing; X58.XXXD Exposure to other specified factors, subsequent encounter; B96.20 Unspecified Escherichia coli [E. coli] as the cause of diseases classified elsewhere; N18.2 Chronic kidney disease, stage 2 (mild); E78.5 Hyperlipidemia, unspecified; L03.116 Cellulitis of left lower limb; D63.1 Anemia in chronic kidney disease; Z79.01 Long term (current) use of anticoagulants; Z11.52 Encounter for screening for COVID-19; Z86.718 Personal history of other venous thrombosis and embolism; Z87.01 Personal history of pneumonia (recurrent); Z87.440 Personal history of urinary (tract) infections
CPT/HCPCS: 36415; 36573; 51702; 71045; 73701; 80048; 80053; 82607; 82746; 83540; 83550; 83735; 85025; 85651; 86140; 86141; 87040; 87070; 87077; 87150; 87186; 87205; 87426; 87641; 96365; 96372; 96375; 97161; 99285; J1650; J1956; J2185; J2270; J2405; J2543; J3370; J7030; J7050; Q9967

== ENCOUNTER 2025-04-06 07:47 | Emergency (ER) | payer MEDICARE, MEDICAID, SELFPAY ==
[2025-04-06 07:48] VITALS: BP 125/80; PULSE 77; RESP 16; TEMP 37; O2SAT 92; BMI 22.2
--- OUTSIDE RECORDS SUMMARY | 2025-04-06 07:51 | XMS_ITS | Clinical Summary ---
Author Organization [facility] Address [address] [place] [address] Phone Care Team Providers Care Chicken Hanger Name Role Phone Efren Romano MD Primary Care Provider [phone] Allergies Active Allergy Reactions Criticality Noted Date Comments Fluconazole Anaphylaxis,Rash High 05/10/2010 Latex Rash Low 08/11/2009 Sulfa (Sulfonamide Antibiotics) Anaphylaxis,Rash High 05/10/2010 Medications pentoxifylline SR (TRENTAL) 400 mg Oral tablet Take 400 mg by mouth 3 times daily. Active trazodone (DESYREL) 100 mg Oral tablet Take 100 mg by mouth daily at bedtime. Take 1/2 to 1 tablet at HS Active alendronate (FOSAMAX) 70 mg Oral tablet Take 70 mg by mouth every 7 days. empty stomach before other meds,with 8oz of water, stay upright 30 min Active lisinopril (PRINIVIL) 20 mg Oral tablet Take 20 mg by mouth 2 times daily. Active lovastatin (MEVACOR) 40 mg Oral tablet Take 40 mg by mouth daily at bedtime. Active meloxicam (MOBIC) 15 mg Oral tablet Take 15 mg by mouth daily. Active oxybutynin chloride (DITROPAN) 5 mg Oral tablet Take 5 mg by mouth 2 times daily. Active ranitidine HCl (ZANTAC) 150 mg Oral Cap Take 150 mg by mouth 2 times daily. Active ropinirole (REQUIP) 1 mg Oral tablet Take 1 mg by mouth daily at bedtime. Active montelukast (SINGULAIR) 10 mg Oral tablet Take 10 mg by mouth daily. Active carisoprodol (SOMA) 350 mg Oral tablet Take 350 mg by mouth daily at bedtime. Active amitriptyline (ELAVIL) 25 mg Oral tablet Take 25 mg by mouth daily at bedtime. Active aspirin (BHAVIN) 325 mg Oral tablet Take 325 mg by mouth daily. Active Calcium Carbonate-Vit D3-Min (CALTRATE 600+D PLUS MINERALS) 600 mg (1,500 mg)-400 unit Oral Chew Take by mouth 2 times daily. Active citalopram (CELEXA) 20 mg Oral tablet Take 20 mg by mouth daily at bedtime. Active POTASSIUM CHLORIDE (K+ POTASSIUM ORAL) Take by mouth daily. Active furosemide (LASIX) 20 mg Oral tablet Take 20 mg by mouth daily. Active aspirin (BHAVIN) 81 mg Oral Tab Take 81 mg by mouth daily. Active hydrochlorothia zide 25 mg Oral tablet Take 25 mg by mouth daily. Active levalbuterol HFA (XOPENEX HFA) 45 mcg/Actuation Inhalation HFAA Take 2 Puffs by inhalation every 6 hours. Active glucosamine sulfate 500 mg Oral Cap Take 500 mg by mouth 2 times daily. 0 Active niacin (NIACOR) 500 mg Oral tablet Take 500 mg by mouth daily. Active oxyCODONE-aceta minophen (PERCOCET) 5-325 mg Oral tablet Take 1-2 Tabs by mouth every 4 hours as needed for Pain. 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 Dental caries 11/13/2009 Femur fracture 09/09/2009 Immunizations Immunization Administration Dates Next Due Pneumococcal conjugate, unspecified formulation 01/25/2009 Social History Tobacco Use Types Packs/Day Years Used Date Smoking Tobacco: Never Smokeless Tobacco: Never Alcohol Use Standard Drinks/Week Comments No 0 (1 standard drink = 0.6 oz pur e alcohol) Comments No Sex and Gender Information Value Date Recorded Sex Assigned at Not on file Legal Sex Female 6:27 AM WINDOWS DESKTOP SUPPORT Gender Identity Not on file Sexual Orientation Not on file Last Filed Vital Signs Vital Sign Reading Time Taken Comments Blood Pressure 134/61 05/14/2010 10:12 AM WINDOWS DESKTOP SUPPORT Pulse 75 05/14/2010 10:12 AM WINDOWS DESKTOP SUPPORT Temperature 35.6 C (96 F) 05/14/2010 10:12 AM WINDOWS DESKTOP SUPPORT Respiratory Rate 18 05/14/2010 10:1 2 AM WINDOWS DESKTOP SUPPORT Oxygen Saturation 93% 05/14/2010 6:39 AM WINDOWS DESKTOP SUPPORT Inhaled Oxygen Concentration - - Weight 110.4 kg (243 lb 6.2 oz) 05/11/2010 5:38 AM WINDOWS DESKTOP SUPPORT Height 152.4 cm (5') 05/11/2010 5:38 AM WINDOWS DESKTOP SUPPORT Body Mass Index 47.53 05/11/2010 5:38 AM WINDOWS DESKTOP SUPPORT Plan of Treatment Health Maintenance Due Date Last Done Comments DTAP/TDAP/TD VACCINES (1 - Tdap) 1969 BREAST CANCER SCREENING 1990 COLORECTAL SCREENING 1995 Colorectal Cancer Screening 1995 FIT-DNA Q 3 years 1995 FIT/FOBT Q 1 year 1995 Flex Sig/CT Colonography Q 5 years 1995 PNEUMOCOCCAL VACCINE 50+ YEARS (1 of 1 - PCV) 04/22/20 00 01/25/2009 ZOSTER VACCINE (1 of 2) 2000 OSTEOPOROSIS SCREENING 2015 INFLUENZA VACCINE (#1) 2024 RSV VACCINE (60+ or ) (1 - 1-dose 75+ series) 2025 Medical Devices Implanted Type Area Advertising Associate Device Identifier Shelf Expiration Date Model / Serial / Lot [place]-Nail Retrograde Femoral Nail Implanted:Qty: 1 on 08/12/2009 at [facility] Nail Right: Leg [employer] 09/24/2018 [id number] / / [id number] Log [id number] - S[employer]N Trigen Vigil Nail System - 1 - Nail Retro Fem [place] 13x36 [id number] Implanted:Qty: 1 on 05/11/2010 at [facility] Nail Right: Femur [employer] 10/26/2019 [id number] / N/A / [id number] Screw Trgn Intrnl Cap 5.0x55mm [id number] Implanted:Qty: 1 on 08/12/2009 at [facility] Screw Right: Leg [employer] 10/25/2018 [id number] / / [id number] Screw Trgn Intrnl Cap 5.0x70mm [id number] Implanted:Qty: 1 on 08/12/2009 at [facility] Screw Right: Leg [employer] 12/25/2018 [id number] / / [id number] Log [id number] - S[employer] Trigen Vigil Nail System - 1 - Screw Trgn Intrnl Cap 5.0x55mm [id number] Implanted:Qty: 1 on 05/11/2010 at [facility] Screw Right: Femur [employer] 12/26/2019 [id number] / N/A / [id number] Log 92880 - S[employer] Trigen Vigil Nail System - 1 - Screw Trgn Intrnl Cap 5.0x35mm [id number] Implanted:Qty: 1 on 05/11/2010 at [facility] Screw Right: Femur [employer] 02/25/2020 [id number] / N/A / [id number] Insurance MEDICARE PART A AND B MEDICAID [facility] Advance Directives For more information, please contact: [phone] * Full Code (Latest Code Status on File) Date Activated Date Inactivated Comments 05/11/2010 11:19 AM 05/14/2010 2:26 PM * Full Code Date Activated Date Inactivated Comments 05/11/2010 7:01 AM 05/11/2010 11:19 AM * Full Code Date Activated Date Inactivated Comments 05/11/2010 5:12 AM 05/11/2010 7:01 AM * Full Code Date Activated Date Inactivated Comments 08/12/2009 10:20 AM 08/15/2009 9:15 PM * Full Code Date Activated Date Inactivated Comments 08/12/2009 6:47 AM 08/12/2009 10:20 AM Care Teams Chicken Hanger Relationship Specialty Start Date End Date Efren Romano MD [address] [place] [id number] PCP - General 05/22/05
--- OUTSIDE RECORDS SUMMARY | 2025-04-06 07:51 | XMS_ITS | Encounter Summary ---
Author Organization [employer]: [facility] Address [address] [place] [address] Care Team Providers Care Strip Presser Name Role Phone Efren Romano MD Primary Care Provider [phone] Encounter Details Date Type Department Care Team (Latest Contact Info) Description 11/25/2002 Outpatient Historical [facility] Blair Gonsalves MD [address] [place] [address] OSTEOARTHROS NOS-L/LEG (Primary Dx); Asymptomatic varicose veins; HYPERLIPIDEMIA NEC/NOS Social History Tobacco Use Types Packs/Day Years Used Date Smoking Tobacco: Never Assessed Comments Unknown Sex and Gender Information Value Date Recorded Sex Assigned at Not on file Legal Sex Female 6:27 AM NEWSPAPER STUFFER Gender Identity Not on file Sexual Orientation Not on file documented as of this encounter Plan of Treatment Not on file documented as of this encounter Visit Diagnoses Diagnosis Osteoarthrosis, unspecified whether generalized or localized, lower leg- Primary Asymptomatic varicose veins Uncomplicated varicose veins Other and unspecified hyperlipidemia documented in this encounter Care Teams Strip Presser Relationship Specialty Start Date End Date Efren Romano MD [address] [id number] PCP - General 05/22/05 documented as of this encounter
--- OUTSIDE RECORDS SUMMARY | 2025-04-06 07:51 | XMS_ITS | Encounter Summary ---
Author Organization [facility] Address [address] [place] [address] Care Team Providers Care Manager Home Name Role Phone Efren Romano MD Primary Care Provider [phone] Encounter Details Date Type Department Care Team (Late st Contact Info) Description 12/27/2005 Outpatient Historical [facility] [address] [place] [address] Pablo Vail MD [address] [place] [address] Open Wound of Knee, Leg (except Thigh), and Ankle, Complicated (Primary Dx); Chronic Ulcer of Calf (CMS/HCC) Social History Tobacco Use Types Packs/Day Years Used Date Smoking Tobacco: Never Assessed Comments Unknown Sex and Gender Information Value Date Recorded Sex Assigned at Not on file Legal Sex Female 6:27 AM RN SHIFT MGR Gender Identity Not on file Sexual Orientation Not on file documented as of this encounter Plan of Treatment Not on file documented as of this encounter Visit Diagnoses Diagnosis Open wound of knee, leg (except thigh), and ankle, complicated- Primary Ulcer of calf (CMS/HCC) Ulcer of calf documented in this encounter Care Teams Manager Home Relationship Specialty Start Date End Date Efren Romano MD [address] [address] PCP - General 05/22/05 documented as of this encounter
--- OUTSIDE RECORDS SUMMARY | 2025-04-06 07:51 | XMS_ITS | Encounter Summary ---
Author Organization [facility] Address [address] [place] [address] Care Team Providers Care Senior Electronics Technician Name Role Phone Efren Romano MD Primary Care Provider [phone] Encounter Details Date Type Department Care Team (Late st Contact Info) Description 03/26/2020 Lab Requisition [facility] Laboratory Services [place] [address] [place] [address] Efren Romano MD [address] [address] Social History Tobacco Use Types Packs/Day Years Used Date Smoking Tobacco: Never Smokeless Tobacco: Never Alcohol Use Standard Drinks/Week Comments No 0 (1 standard drink = 0.6 oz pur e alcohol) Comments No Sex and Gender Information Value Date Recorded Sex Assigned at Not on file 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 Gender Identity Not on file Sexual Orientation Not on file documented as of this encounter Plan of Treatment Not on file documented as of this encounter Procedures Procedure Name Priority Date/Time Associated Diagnosis Comments PROTIME-INR Routine 03/26/2020 10:15 AM CDT BASIC METABOLIC PANEL Routine 03/26/2020 10:15 AM CDT documented in this encounter Results * (ABNORMAL) PROTIME-INR (03/26/2020 10:15 AM CDT) PROTIME 31.4(H) 12.0 - 14.4 Seconds 03/26/2020 12:36 PM [facility] INR 3.2(H) 0.8 - 1.2 03/26/2020 12:36 PM [facility] Blood 03/26/2020 10:1 5 AM CDT 03/26/2020 12:21 PM CDT Efren Romano MD HEMATOLOGY ORDERABLES Final R esult [facility] CLIA # [id number] [address] [place] [phone] * (ABNORMAL) BASIC METABOLIC PANEL (03/26/2020 10:15 AM CDT) SODIUM 139 136 - 145 mmol/L 03/26/2020 12:45 PM [facility] POTASSIUM 3.3(L) 3.5 - 5.1 mmol/L 03/26/2020 12:45 PM [facility] CHLORIDE 94(L) 98 - 107 mmol/L 03/26/2020 12:45 PM [facility] CO2 31(H) 22 - 29 mmol/L 03/26/2020 12:45 PM [facility] CALCIUM 10.2 8.8 - 10.2 mg/dL 03/26/2020 12:45 PM [facility] BUN 36(H) 8 - 23 mg/dL 03/26/2020 12:45 PM [facility] CREATININE 0.96(H) 0.51 - 0.95 mg/dL 03/26/2020 12:45 PM [facility] GLUCOSE 118(H) 74 - 99 mg/dL 03/26/2020 12:45 PM [facility] GFR 58(L) >=60 mL/min/1.7 3 sq meter 03/26/2020 12:45 PM [facility] Comment: eGFR has not been validated for use in the elderly (> 70 years of age), women, patients with serious co-morbid conditions, or persons with extremes of body size or muscle mass and should also be interpreted with caution in patients with acute kidney failure, dialysis dependent patients, patients reporting exceptional dietary intake (e.g. vegetarian diet, high protein diets, creatine supplementation), and patients with severe liver disease. Based on National Kidney Disease Education Program If patient is , please refer to the GFR result. GFR, >60 >=60 mL/min/1.7 3 sq meter 03/26/2020 12:45 PM CDT [facility] ANION GAP 14 12 - 20 mmol/L 03/26/2020 12:45 PM CDT [facility] Blood 03/26/2020 10:1 5 AM CDT 03/26/2020 12:21 PM CDT us Efren Romano MD CHEMISTRY ORDERABLES Final Re sult [facility] CLIA # [id number] [address] [place] [phone] documented in this encounter Visit Diagnoses Not on filedocumented in this encounter Care Teams Senior Electronics Technician Relationship Specialty Start Date End Date Efren Romano MD [address] [place] [address] PCP - General 05/22/05 documented as of this encounter
--- OUTSIDE RECORDS SUMMARY | 2025-04-06 07:51 | XMS_ITS | Encounter Summary ---
Author Organization [facility] Address [address] [place] [address] Care Team Providers Care Clinical Support Specialist Name Role Phone Efren Romano MD Primary Care Provider [phone] Encounter Details Date Type Department Care Team (Latest Contact Info) Description 08/19/2002 Outpatient Historical [facility] Blair Gonsalves MD [address] [place] [address] DERMATITIS NOS (Primary Dx); OSTEOPOROSIS NOS; AFTERCARE [facility] USE MEDICATN Social History Tobacco Use Types Packs/Day Years Used Date Smoking Tobacco: Never Assessed Comments Unknown Sex and Gender Information Value Date Recorded Sex Assigned at Not on file 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
--- OUTSIDE RECORDS SUMMARY | 2025-04-06 07:51 | XMS_ITS | Encounter Summary ---
Author Organization [facility] Address [address] [place] [address] Care Team Providers Care Metallurgical Engineer Name Role Phone Efren Romano MD Primary Care Provider Encounter Details Date Type Department Care Team (Late st Contact Info) Description 04/05/2020 Lab Requisition [facility] Laboratory Services [address] [place] [address] [place] [address] Efren Romano MD [address] [place] [address] Social History Tobacco Use Types Packs/Day Years Used Date Smoking Tobacco: Never Smokeless Tobacco: Never Alcohol Use Standard Drinks/Week Comments No 0 (1 standard drink = 0.6 oz pur e alcohol) Comments No Sex and Gender Information Value Date Recorded Sex Assigned at Not on file 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 Gender Identity Not on file Sexual Orientation Not on file documented as of this encounter Plan of Treatment Not on file documented as of this encounter Procedures Procedure Name Priority Date/Time Associated Diagnosis Comments URINE CULTURE Routine 04/05/2020 4:10 AM CARDIOPULMONARY TECHNICIAN AND EEG TECH documented in this encounter Results * URINE CULTURE (04/05/2020 4:10 AM CARDIOPULMONARY TECHNICIAN AND EEG TECH) CULTURE No growth 04/06/2020 3:18 PM CARDIOPULMONARY TECHNICIAN AND EEG TECH [facility] Urine URINE SPECIMEN / Unknown 04/05/2020 4:10 AM CARDIOPULMONARY TECHNICIAN AND EEG TECH 04/05/2020 9:18 PM CARDIOPULMONARY TECHNICIAN AND EEG TECH us Efren Romano MD MICROBIOLOGY - GENERAL ORDERA BLES Final Result [facility] [address] [address] documented in this encounter Visit Diagnoses Not on filedocumented in this encounter Care Teams Metallurgical Engineer Relationship Specialty Start Date End Date Efren Romano MD [address] [address] PCP - General 05/22/05 documented as of this encounter
--- OUTSIDE RECORDS SUMMARY | 2025-04-06 07:51 | XMS_ITS | Encounter Summary ---
Author Organization [facility] Address [address] [place] [address] Care Team Providers Care Pastry Supervisor Name Role Phone Efren Romano MD Primary Care Provider [phone] Encounter Details Date Type Department Care Team (Late st Contact Info) Description 12/21/2005 Outpatient Historical [facility] Plastic Surgery [address] [place] 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
--- OUTSIDE RECORDS SUMMARY | 2025-04-06 07:51 | XMS_ITS | Encounter Summary ---
Author Organization [facility] Address [address] [place] [address] Care Team Providers Care Intermediate Project Manager Name Role Phone Efren Romano MD Primary Care Provider [phone] Encounter Details Date Type Department Care Team (Late st Contact Info) Description 02/15/2006 Outpatient Historical [facility] Plastic Surgery [address] [place] 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
--- OUTSIDE RECORDS SUMMARY | 2025-04-06 07:51 | XMS_ITS | Clinical Summary ---
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 Dental caries 11/13/2009 Femur fracture 09/09/2009 Immunizations Immunization Administration Dates Next Due Pneumococcal conjugate, unspecified formulation 01/25/2009 Social History Tobacco Use Types Packs/Day Years Used Date Smoking Tobacco: Never Smokeless Tobacco: Never Alcohol Use Standard Drinks/Week Comments No 0 (1 standard drink = 0.6 oz pur e alcohol) Comments Unknown Sex and Gender Information Value Date Recorded Sex Assigned at Not on file 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 Gender Identity Not on file Sexual Orientation Not on file Plan of Treatment Health Maintenance Due Date [...] series) 2025 Medical Devices Implanted Type Area Diamond Setter Apprentice Device Identifier Shelf Expiration Date Model / Serial / Lot Basin-Nail Retrograde Femoral Nail Implanted:Qty: 1 on 08/12/2009 Nail Right: Leg [employer] 09/24/2018 [id number] / / [id number] Log [id number] - S[employer] Trigen Vigil Nail System - 1 - Nail Retro Fem Basin 13x36 [id number] Implanted:Qty: 1 on 05/11/2010 Nail Right: Femur [employer] 10/26/2019 [id number] / N/A / [id number] Screw Trgn Intrnl Cap 5.0x55mm [id number] Implanted:Qty: 1 on 08/12/2009 Screw Right: Leg [employer] 10/25/2018 [id number] / / [id number] Screw Trgn Intrnl Cap 5.0x70mm [id number] Implanted:Qty: 1 on 08/12/2009 Screw Right: Leg [employer] 12/25/2018 [id number] / / [id number] Log 90280 - S[employer] Trigen Vigil Nail System - 1 - Screw Trgn Intrnl Cap 5.0x35mm [id number] Implanted:Qty: 1 on 05/11/2010 Screw Right: Femur [employer] 02/25/2020 [id number] / N/A / [id number] Log 14036 - S[employer] Trigen Vigil Nail System - 1 - Screw Trgn Intrnl Cap 5.0x55mm [id number] Implanted:Qty: 1 on 05/11/2010 Screw Right: Femur [employer] 12/26/2019 [id number] / N/A / [id number] Care Teams Loan Examiner Relationship Specialty Start Date End Date Efren Romano MD [address] [place] [address] PCP - General 05/22/05
--- OUTSIDE RECORDS SUMMARY | 2025-04-06 07:51 | XMS_ITS | Encounter Summary ---
Author Organization [facility] Address [address] [place] [address] Care Team Providers Care Contact Lens Assistant Name Role Phone Efren Romano MD Primary Care Provider [phone] Encounter Details Date Type Department Care Team (Late st Contact Info) Description 10/05/2005 Outpatient Historical [facility] Plastic Surgery [address] [place] 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
--- OUTSIDE RECORDS SUMMARY | 2025-04-06 07:51 | XMS_ITS | Encounter Summary ---
Author Organization [facility] Address [address] [place] [address] Care Team Providers Care Blind Cleaner Name Role Phone Efren Romano MD Primary Care Provider [phone] Encounter Details Date Type Department Care Team (Late st Contact Info) Description 01/04/2006 Outpatient Historical [facility] Plastic Surgery [address] [place] 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
--- OUTSIDE RECORDS SUMMARY | 2025-04-06 07:51 | XMS_ITS | Continuity of Care Document ---
Author Organization [employer] [facility] ([facility]) Address [address] [place] [address] Insurance Providers Payer Plan Claims Address Claims Phone Policy Number Group Number Relation Employer Guarantor Name Guarantor Guarantor Address Guarantor Phone MEDIC ARE tel:[phone] Harinder Clarke [address], [place] [address] MEDIC AID [address], [place] [id number] Harinder Clarke [address], [place] [address] SKILL ED NURSI [facility] [address] [place] [address] tel:[phone] Harinder Clarke [address], [place] [address] Problems Condition ICD9 code ICD10 code SNOMED code Start Date End Date S tatus Cellulitis of left lower limb L03.116 10/23/2023 Active Unspecified open wound, left knee, subsequent encounter S81.002D 10/23/2023 Active Bacteremia R78.81 10/23/2023 Active Muscle weakness (generalized) M62.81 10/24/2023 Active 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 coli] as the cause of diseases classified elsewhere B96.20 10/23/2023 Acti ve Encounter for adjustment and management of vascular access device Z45.2 10/23/2023 Ac tive custodial (current) use of anticoagulants Z79.01 10/23/2023 Active Displaced bicondylar fracture of unspecified tibia, subsequent encounter for closed fracture with routine healing S82.143D 10/23/2023 Active History of falling Z91.81 10/23/2023 Ac tive Hypertensive heart and chronic kidney disease with heart failure and stage 1 through stage 4 chronic kidney disease, or unspecified chronic kidney disease I13.0 10/23/2023 Active Unspecified diastolic (congestive) heart failure I50.30 10/23/2023 Active Chronic kidney disease, stage 2 (mild) N18.2 10/23/2023 Active Hemiplegia and hemiparesis following cerebral infarction affecting left non-dominant side I69.354 10/23/2023 Active Anemia, unspecified D64.9 10/23/2023 A ctive Hyperlipidemia, unspecified E78.5 10/23/2023 Active Dysphagia, unspecified R13.10 10/23/2023 Active Presence of other vascular implants and grafts Z95.828 10/23/2023 Active Unvaccinated for COVID-19 Z28.310 10/23/2023 Active Do not resuscitate Z66 10/23/2023 Ac tive Results No Results Allergies, adverse reactions, alerts Substance Reaction Date Status Type fluconazole 03/23/2020 Non Drug Sulfonamides (Sulfa) 03/23/2020 Non Drug Latex 03/23/2020 Non Drug Immunizations Vaccine Route Date Status COVID-19 Vaccine Unassigned Route of Administration Refused Influenza Vaccine Unassigned Route of Administration 1 05/30/2019 Completed Pneumococcal Vaccine Unassigned Route of Administratio n 10/24/2023 Completed Medications Medication Instructions Route Dosage Frequency Start Date Stop Date Indications Status albuterol sulfate 2.5 mg /3 mL (0.083 %) solution for nebulization (albuterol sulfate) 1, inhalation, Every 6 Hours - PRN, Clinical indication: wheezing inhalation 1.0 6.0 h 11/05 Active amitriptyline 25 mg tablet (amitriptyline ) 1, oral, At Bedtime oral 1.0 11/05 Active atorvastatin 40 mg tablet (atorvastatin) 1, oral, At Bedtime oral 1.0 11/05 Active Calmoseptine (menthol-zinc oxide) 0.44-20.6 % ointment (Calmoseptine (menthol-zinc oxide)) as directed, topical, Every Shift, Skin tear sacrum: cleanse with soap and water apply calmoseptine q shift till healed then prn prevention topical 1.0 8.0 h 4 11/02 Active citalopram 20 mg tablet (citalopram) 1, oral, Once A Day oral 1.0 1.0 d 11/05 Active Dakin's Solution (sodium hypochlorite) 0.125 % solution (Dakin's Solution (sodium hypochlorite)) as directed, miscellaneous , Every Shift, Left knee: Cleans with NS and gauze, pack wound with dakins damped rolled gauze and cover with gauze/abd pad secure with pink tape q shift and prn 1.0 8.0 h 10/29 Active Dakin's Solution (sodium hypochlorite) 0.125 % solution (Dakin's Solution (sodium hypochlorite)) as directed, miscellaneous , Every Shift, Left inner knee and upper left knee: Cleans with NS and gauze, pack wound with dakins damped rolled gauze and cover with gauze/abd pad secure with pink tape q shift and prn 1.0 8.0 h 10/30 Active Dakin's Solution (sodium hypochlorite) 0.125 % solution (Dakin's Solution (sodium hypochlorite)) as directed, miscellaneous , Every Shift, Left inner knee: Cleanse with NS and gauze, pack wound to 12 and 2 with Dakin's WTD PACKING STRIP, cover with ABD and orange tape 1.0 8.0 h 4 11/05 Active Dakin's Solution (sodium hypochlorite) 0.125 % solution (Dakin's Solution (sodium hypochlorite)) 1 gm, miscellaneous , Twice A Day, Cleanse L lateral knee with NS, apply Dakin's WTD packing strip, cover with Telfa 1.0 12.0 h 4 11/05 Active Dakin's Solution (sodium hypochlorite) 0.125 % solution (Dakin's Solution (sodium hypochlorite)) as directed, miscellaneous , Every Shift, Left inner knee: Cleanse with NS and gauze, pack wound to 12 and 2 with Dakin's WTD PACKING STRIP, cover with ADB and orange tape 1.0 8.0 h 10/30 Active diazepam 5 mg tablet (diazepam) 1, oral, Twice A Day oral 1.0 12.0 h 11/05 Active Dulcolax (bisacodyl) (bisacodyl) 5 mg tablet,delayed release (DR/EC) (Dulcolax (bisacodyl) (bisacodyl)) 2 tabs/10mg, oral, Once A Day - PRN, Give if no results from MOM oral 1.0 1.0 d 11/05 Active Dulcolax (bisacodyl) (bisacodyl) 10 mg suppository (Dulcolax (bisacodyl) (bisacodyl)) 1 suppository, rectal, Once A Day - PRN, Give rectally if can't take p/o, if no results from MOM rectal 1.0 1.0 d 11/05 Active ertapenem 1 gram recon soln (ertapenem) 1 gram, injection, Once A Day, clinical indication: cutaneous abscess 1.0 1.0 d 10/28 Active ertapenem 1 gram recon soln (ertapenem) 1 gram, intravenous, Once A Day, clinical indication: cutaneous abscess intravenous 1.0 1.0 d 11/05 Active ferrous sulfate 325 mg (65 mg iron) tablet (ferrous sulfate) 1, oral, Once A Day oral 1.0 1.0 d 11/05 Active Fleet Enema (sodium phosphates) 19-7 gram/118 mL enema (Fleet Enema (sodium phosphates)) 1 application, rectal, Once A Day, Give fleets if no results from MOM and Dulcolax rectal 1.0 1.0 d 10/23 Active Fleet Enema (sodium phosphates) 19-7 gram/118 mL enema (Fleet Enema (sodium phosphates)) 1 application, rectal, As Needed, Give fleets if no results from MOM and Dulcolax rectal 1.0 1.0 d 11/05 Active furosemide 20 mg tablet (furosemide) 1, oral, Once A Day oral 1.0 1.0 d 11/05 Active Gold Crow Medicated Body (menthol) 0.8 % powder (Gold Crow Medicated Body (menthol)) as directed, topical, Every Shift, apply to back and buttock due to red macerated areas for prevention of continued breakdown topical 1.0 8.0 h 11/05 Active Heparin LockFlush(Porc ine)(PF) (heparin, porcine (pf)) 100 unit/mL syringe (Heparin LockFlush(Porc ine)(PF) (heparin, porcine (pf))) 5ml, intravenous, Every Shift, Flush ольга-cath with Heparinized NS before and after each use intravenous 1.0 8.0 h 11/05 Active hydrocodone-ac etaminophen 5-325 mg tablet (hydrocodone-a cetaminophen) 1, oral, Every 6 Hours - PRN, Clinical indication: pain oral 1.0 6.0 h 11/05 Active MediHoney (honey) (honey) 80 % gel (MediHoney (honey) (honey)) 1 gm, topical, Twice A Day, Cleanse sacrum with NS, apply medihoney, cover with foam dressing topical 1.0 12.0 h 11/05 Active Milk of Magnesia (magnesium hydroxide) 400 mg/5 mL suspension (Milk of Magnesia (magnesium hydroxide)) 30 ml, oral, Every 72 Hours - PRN, if no BM in 3 daysDO NOT GIVE TO RENAL PATIENTS--GO TO DULCOLAX ORDERS oral 1.0 72.0 h 11/05 Active Normal Saline Flush (sodium chloride 0.9 %) - syringe (Normal Saline Flush (sodium chloride 0.9 %)) 3ml, injection, Every Shift, Flush IV with 5ml NS before and after use(SASH) 1.0 8.0 h 11/05 Active nystatin 100,000 unit/gram powder (nystatin) as needed, topical, Once A Day - PRN, Apply daily as needed to rashy areas topical 1.0 1.0 d 10/24 Active nystatin 100,000 unit/gram powder (nystatin) as needed, topical, Twice A Day, Apply daily as needed to red areas between legs topical 1.0 12.0 h 10/24 Active nystatin 100,000 unit/gram powder (nystatin) 1 gm, topical, Twice A Day, Apply daily as needed to red areas between legs topical 1.0 12.0 h 11/05 Active omeprazole 20 mg tablet,disinte grat, delay rel (omeprazole) 1, oral, Once A Day oral 1.0 1.0 d 10/23 Active omeprazole 20 mg capsule,delaye d release(DR/EC) (omeprazole) 1 cap, oral, Once A Day oral 1.0 1.0 d 11/05 Active oxybutynin chloride 5 mg tablet (oxybutynin chloride) 1, oral, Twice A Day oral 1.0 12.0 h 11/05 Active potassium chloride 20 mEq tablet,ER particles/kacy tals (potassium chloride) 1, oral, Once A Day oral 1.0 1.0 d 11/05 Active Prevnar 20 (PF) (pneumoc 20-tobi conj-dip cr(pf)) 0.5 mL syringe (Prevnar 20 (PF) (pneumoc 20-tobi conj-dip cr(pf))) 0.5ml, intramuscular , Once - One Time intramuscul ar 1.0 11/05 Active promethazine-D M 6.25-15 mg/5 mL syrup (promethazine- DM) 5ml, oral, Once A Day - PRN, Clinical Indication: Cough oral 1.0 1.0 d 11/05 Active ropinirole 1 mg tablet (ropinirole) 1, oral, Once A Morning oral 1.0 11/05 Active ropinirole 2 mg tablet (ropinirole) 1, oral, At Bedtime oral 1.0 11/05 Active terbinafine HCl 250 mg tablet (terbinafine HCl) 250mg, oral, Once A Day, terbinafine 250mg give 250mg by mouth daily x 7 days oral 1.0 1.0 d 11/05 Active tizanidine 4 mg tablet (tizanidine) 1, oral, Three Times A Day - PRN, Clinical Indication: Muscle Spasm oral 1.0 8.0 h 11/05 Active trazodone 100 mg tablet (trazodone) 1, oral, At Bedtime oral 1.0 11/05 Active Tubersol (tuberculin ppd) 5 tub. unit /0.1 mL solution (Tubersol (tuberculin ppd)) 0.1ml, intradermal, Once - One Time, Administer the morning after admission intradermal 1.0 11/05 Active Tubersol (tuberculin ppd) 5 tub. unit /0.1 mL solution (Tubersol (tuberculin ppd)) 0.1ml, intradermal, Once - One Time, Administer on the day shift intradermal 1.0 11/05 Active Tylenol (acetaminophen ) 325 mg tablet (Tylenol (acetaminophen )) 2 tabs/650mg, oral, Every 6 Hours - PRN, as needed for PRN pain/increase d tempMay give rectally if necessary oral 1.0 6.0 h 10/23 Active Tylenol Extra Strength (acetaminophen ) 500 mg tablet (Tylenol Extra Strength (acetaminophen )) 2 tab= 500 mg, oral, Every 8 Hours - PRN oral 1.0 8.0 h 11/05 Active Vital Signs Date Vital Result Comment 11/06/2023 08:55 AM Temperature 97.7 [degF] Oxygen Saturation 98 % Respiratory Rate 16 /min Heart Rate 82 /min Blood Pressure Systolic 165 mm[Hg] Blood Pressure Diastolic 67 mm[Hg] 11/05/2023 08:55 PM Temperature 98.1 [degF] Oxygen Saturation 90 % Respiratory Rate 21 /min Heart Rate 87 /min Blood Pressure Systolic 121 mm[Hg] Blood Pressure Diastolic 52 mm[Hg] 11/05/2023 07:08 AM Temperature 97.5 [degF] Oxygen Saturation 95 % Respiratory Rate 18 /min Heart Rate 74 /min Blood Pressure Systolic 115 mm[Hg] Blood Pressure Diastolic 63 mm[Hg] 11/04/2023 07:33 PM Temperature 96.7 [degF] Oxygen Saturation 92 % Respiratory Rate 12 /min Heart Rate 81 /min Blood Pressure Systolic 106 mm[Hg] Blood Pressure Diastolic 68 mm[Hg] 11/04/2023 08:53 AM Temperature 97.5 [degF] Oxygen Saturation 90 % Respiratory Rate 18 /min Heart Rate 74 /min Blood Pressure Systolic 131 mm[Hg] Blood Pressure Diastolic 73 mm[Hg] 11/03/2023 07:11 PM Temperature 97.6 [degF] Oxygen Saturation 92 % Respiratory Rate 20 /min Heart Rate 76 /min Blood Pressure Systolic 106 mm[Hg] Blood Pressure Diastolic 64 mm[Hg] 11/03/2023 11:27 AM Temperature 98.2 [degF] Oxygen Saturation 92 % Respiratory Rate 20 /min Heart Rate 75 /min Blood Pressure Systolic 152 mm[Hg] Blood Pressure Diastolic 89 mm[Hg] 11/02/2023 09:20 PM Temperature 97.1 [degF] Oxygen Saturation 90 % Respiratory Rate 18 /min Heart Rate 85 /min Blood Pressure Systolic 116 mm[Hg] Blood Pressure Diastolic 57 mm[Hg] 11/02/2023 09:48 AM Temperature 97.4 [degF] Oxygen Saturation 97 % Respiratory Rate 20 /min Heart Rate 66 /min Blood Pressure Systolic 118 mm[Hg] Blood Pressure Diastolic 64 mm[Hg] 11/01/2023 08:12 PM Temperature 98.7 [degF] Oxygen Saturation 92 % Respiratory Rate 20 /min Heart Rate 80 /min Blood Pressure Systolic 124 mm[Hg] Blood Pressure Diastolic 63 mm[Hg] 10/29/2023 02:11 PM Body Weight 140 [lb_av] Body Mass Index 27.34 kg/m2 10/26/2023 10:14 AM Body Weight 140.2 [lb_av] Body Mass Index 27.38 kg/m2 10/24/2023 03:52 PM Body Weight 141.1 [lb_av] Body Mass Index 27.55 kg/m2 10/24/2023 12:21 PM Body Height 152.4 cm 10/23/2023 08:11 PM Body Weight 142 [lb_av] Body Mass Index 27.73 kg/m2 Social History No smoking Hx information available Encounters Type CPT Code Date Location Provider Indication s encounter report 10/23/2023 07:5 3 PM - 11/06/2023 02:15 PM SHIREEN CRESPO MD 02 Advance Directives Directive Description Verification Date Supporting Document(s) Resuscitation
--- OUTSIDE RECORDS SUMMARY | 2025-04-06 07:51 | XMS_ITS | Encounter Summary ---
Author Organization [facility] Address [address] [place] [address] Care Team Providers Care Business Center Attendant Name Role Phone Efren Romano MD Primary Care Provider [phone] Encounter Details Date Type Department Care Team (Latest Contact Info) Description 05/22/2005 Outpatient Historical [facility] Josef Conte MD [address] [address] LUMB/LUMBOSAC DISC DEGEN (Primary Dx) Social History Tobacco Use Types Packs/Day Years Used Date Smoking Tobacco: Never Assessed Comments Unknown Sex and Gender Information Value Date Recorded Sex Assigned at Not on file Legal Sex Female 6:27 AM RN [facility] Gender Identity Not on file Sexual Orientation Not on file documented as of this encounter Plan of Treatment Not on file documented as of this encounter Visit Diagnoses Diagnosis Degeneration of lumbar or lumbosacral intervertebral disc- Primary documented in this encounter Care Teams Business Center Attendant Relationship Specialty Start Date End Date Efren Romano MD 5 [facility] [address] [place], [place] [id number] PCP - General 05/22/05 documented as of this encounter
--- OUTSIDE RECORDS SUMMARY | 2025-04-06 07:51 | XMS_ITS | Encounter Summary ---
Author Organization [facility] Address [address] [place] [address] Care Team Providers Care City Engineer Name Role Phone Efren Romano MD Primary Care Provider [phone] Encounter Details Date Type Department Care Team (Late st Contact Info) Description 12/27/[address] [facility] [address] [place] [address] Pablo Vail MD [address] [place] [address] Non-Healing Surgical Wound (Primary Dx) Social History Tobacco Use Types Packs/Day Years Used Date Smoking Tobacco: Never Assessed Comments Unknown Sex and Gender Information Value Date Recorded Sex Assigned at Not on file Legal Sex Female 6:27 AM NAVY DIVER Gender Identity Not on file Sexual Orientation Not on file documented as of this encounter Plan of Treatment Not on file documented as of this encounter Visit Diagnoses Diagnosis Non-healing surgical wound- Primary documented in this encounter Care Teams City Engineer Relationship Specialty Start Date End Date Efren Romano MD [address] [address] PCP - General 05/22/05 documented as of this encounter
--- OUTSIDE RECORDS SUMMARY | 2025-04-06 07:51 | XMS_ITS | Encounter Summary ---
Author Organization [facility] Address [address] [place] [address] Care Team Providers Care Iron Launder Operator Name Role Phone Efren Romano MD Primary Care Provider [phone] Encounter Details Date Type Department Care Team (Late st Contact Info) Description 01/18/2006 Outpatient Historical [facility] Surgery [address] [place] [address] Pablo Vail MD [address] [place] [address] Follow-Up Examination, Following Unspecified Surgery (Primary Dx) Social History Tobacco Use Types Packs/Day Years Used Date Smoking Tobacco: Never Assessed Comments Unknown Sex and Gender Information Value Date Recorded Sex Assigned at Not on file Legal Sex Female 6:27 AM UKE OPERATOR Gender Identity Not on file Sexual Orientation Not on file documented as of this encounter Plan of Treatment Not on file documented as of this encounter Visit Diagnoses Diagnosis Follow-up examination, following unspecified surgery- Primary documented in this encounter Care Teams Iron Launder Operator Relationship Specialty Start Date End Date Efren Romano MD [address] [id number] PCP - General 05/22/05 documented as of this encounter
--- OUTSIDE RECORDS SUMMARY | 2025-04-06 07:51 | XMS_ITS | Encounter Summary ---
Author Organization [facility] Address [address] [place] [address] Care Team Providers Care Roof Tile Layer Name Role Phone Efren Romano MD Primary Care Provider [phone] Encounter Details Date Type Department Care Team (Late st Contact Info) Description 10/26/2005 Outpatient Historical [facility] Plastic Surgery 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
--- OUTSIDE RECORDS SUMMARY | 2025-04-06 07:51 | XMS_ITS | Encounter Summary ---
Author Organization [facility] Address [address] [place] [address] Care Team Providers Care Middle School Reading Teacher Name Role Phone Efren Romano MD Primary Care Provider [phone] Encounter Details Date Type Department Care Team (Late st Contact Info) Description 04/15/2006 Outpatient Historical [facility] Wound Care [address] 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
--- OUTSIDE RECORDS SUMMARY | 2025-04-06 07:51 | XMS_ITS | Encounter Summary ---
Author Organization [facility] Address [address] [place] [address] Care Team Providers Care Antique Refinisher Name Role Phone Efren Romano MD Primary Care Provider [phone] Encounter Details Date Type Department Care Team (Latest Contact Info) Description 12/21/2005 Outpatient Historical [facility] [address] [place] [address] Pablo Vail MD [address] [place] [address] Pre-Operative Cardiovascular Examination (Primary Dx) Social History Tobacco Use Types Packs/Day Years Used Date Smoking Tobacco: Never Assessed Comments Unknown Sex and Gender Information Value Date Recorded Sex Assigned at Not on file Legal Sex Female 6:27 AM COMPETITIVE INTELLIGENCE ANALYST Gender Identity Not on file Sexual Orientation Not on file documented as of this encounter Plan of Treatment Not on file documented as of this encounter Procedures Procedure Name Priority Date/Time Associated Diagnosis Comments BASIC METABOLIC PANEL Routine 12/21/2005 12:55 PM CDT documented in this encounter Results * (ABNORMAL) BASIC METABOLIC PANEL (12/21/2005 12:55 PM CDT) GLUCOSE 105 70 - 110 mg/dL INTERFACE SYSTEM BUN 22(H) 7 - 17 mg/dL INTERFACE SYSTEM CREATININE 1.0 0.7 - 1.2 mg/dL INTERFACE SYSTEM SODIUM 142 136 - 145 mEq/L INTERFACE SYSTEM POTASSIUM 4.5 3.5 - 5.0 mEq/L INTERFACE SYSTEM CHLORIDE 104 95 - 110 mEq/L INTERFACE SYSTEM CO2 28 22 - 32 mmol/l INTERFACE SYSTEM ANION GAP 15 9 - 20 mEq/L INTERFACE SYSTEM OSMOLALITY, CALCULATED 296(H) 275 - 295 mOsm/Kg INTERFACE SYSTEM CALCIUM 9.9 8.4 - 10.5 mg/dL INTERFACE SYSTEM 12/21/2005 12:5 5 PM CD[facility] CHEMISTRY ORDERABLES Final Resul t INTERFACE SYSTEM Refer to clinic/hospital department documented in this encounter Visit Diagnoses Diagnosis Pre-operative cardiovascular examination- Primary documented in this encounter Care Teams Antique Refinisher Relationship Specialty Start Date End Date Efren Romano MD [address] [address] PCP - General 05/22/05 documented as of this encounter
--- OUTSIDE RECORDS SUMMARY | 2025-04-06 07:51 | XMS_ITS | Encounter Summary ---
Author Organization [facility] Address [address] [place] [address] Care Team Providers Care Button Broacher Name Role Phone Efren Romano MD Primary Care Provider [phone] Encounter Details Date Type Department Care Team (Late st Contact Info) Description 08/19/2002 Outpatient Historical [facility] Blair Gonsalves MD [address] [place] [address] Social History Tobacco Use Types Packs/Day Years Used Date Smoking Tobacco: Never Assessed Comments Unknown Sex and Gender Information Value Date Recorded Sex Assigned at Not on file Legal Sex Female 6:27 AM 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
--- OUTSIDE RECORDS SUMMARY | 2025-04-06 07:51 | XMS_ITS | Encounter Summary ---
Author Organization [facility] Address [address] [place] [address] Care Team Providers Care Coin Machine Mechanic Name Role Phone Efren Romano MD Primary Care Provider [phone] Encounter Details Date Type Department Care Team (Late st Contact Info) Description 04/01/2020 Lab Requisition [facility] Laboratory Services [address] [place] [address] Geovanni Cline MD [address] [address] Social History Tobacco Use Types Packs/Day Years Used Date Smoking Tobacco: Never Smokeless Tobacco: Never Alcohol Use Standard Drinks/Week Comments No 0 (1 standard drink = 0.6 oz pur e alcohol) Comments No Sex and Gender Information Value Date Recorded Sex Assigned at Not on file Legal Sex Female 6:27 AM BB SHOT PACKER Gender Identity Not on file Sexual Orientation Not on file documented as of this encounter Plan of Treatment Not on file documented as of this encounter Procedures Procedure Name Priority Date/Time Associated Diagnosis Comments PROTIME-INR Routine 04/01/2020 4:05 AM BB SHOT PACKER documented in this encounter Results * (ABNORMAL) PROTIME-INR (04/01/2020 4:05 AM BB SHOT PACKER) PROTIME 29.6(H) 11.9 - 15.5 Seconds 04/01/2020 5:53 PM [facility] INR 2.7(H) 0.8 - 1.2 04/01/2020 5:53 PM [facility] Blood Collection / Unknown 04/01/2020 4:05 AM BB SHOT PACKER 04/01/2020 5:30 PM BB SHOT PACKER Narrative [facility] - 04/01/2020 5:53 PM BB SHOT PACKER Expected Values for INR: DVT/PE Goal INR 2.5; range 2.0 - 3.0 Valve Replacement Tissue Goal INR 2.5; range 2.0 - 3.0 Valve Replacement Mechanical Goal INR 3.0; range 2.5 - 3.5 POST-VA Goal INR 2.5; range 2.0 - 3.0 or Goal INR 3.0; range 2.5 - 3.5 Atrial Fibrillation Goal INR 2.5; range 2.0 - 3.0 Ischemic Stroke Goal INR 2.5; range 2.0 - 3.0 For additional information see Guidelines for Anticoagulation available from the pharmacy Margarita Tenorio, Pharm D. us Geovanni Cline MD HEMATOLOGY ORDERABLES Final R esult [facility] [address] [place] [address] documented in this encounter Visit Diagnoses Not on filedocumented in this encounter Care Teams Coin Machine Mechanic Relationship Specialty Start Date End Date Efren Romano MD [address] [place] [id number] PCP - General 05/22/05 documented as of this encounter
--- OUTSIDE RECORDS SUMMARY | 2025-04-06 07:51 | XMS_ITS | Encounter Summary ---
Author Organization [facility] Address [address] [place] [address] Care Team Providers Care Case Hardener Name Role Phone Efren Romano MD Primary Care Provider Encounter Details Date Type Department Care Team (Latest Contact Info) Description 05/22/2005 Outpatient Historical [facility] [address] 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
--- OUTSIDE RECORDS SUMMARY | 2025-04-06 07:51 | XMS_ITS | Encounter Summary ---
Author Organization [facility] Address [address] [place] [address] Care Team Providers Care Packing Floor Worker Name Role Phone Efren Romano MD Primary Care Provider [phone] Encounter Details Date Type Department Care Team (Late st Contact Info) Description 11/26/2005 Emergency [facility] Emergency Department [address] 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 Gender Identity Not on file Sexual Orientation Not on file documented as of this encounter Plan of Treatment Not on file documented as of this encounter Procedures Procedure Name Priority Date/Time Associated Diagnosis Comments CBC WITH DIFFERENTIAL Routine 11/26/2005 5:12 PM CDT BASIC METABOLIC PANEL Routine 11/26/2005 5:12 PM CDT documented in this encounter Results * (ABNORMAL) BASIC METABOLIC PANEL (11/26/2005 5:12 PM CDT) GLUCOSE 97 70 - 110 mg/dL INTERFACE SYSTEM BUN 26(H) 7 - 17 mg/dL INTERFACE SYSTEM CREATININE 1.0 0.7 - 1.2 mg/dL INTERFACE SYSTEM SODIUM 139 136 - 145 mEq/L INTERFACE SYSTEM POTASSIUM 4.6 3.5 - 5.0 mEq/L INTERFACE SYSTEM CHLORIDE 104 95 - 110 mEq/L INTERFACE SYSTEM CO2 27 22 - 32 mmol/l INTERFACE SYSTEM ANION GAP 13 9 - 20 mEq/L INTERFACE SYSTEM OSMOLALITY, CALCULATED 292 275 - 295 mOsm/Kg INTERFACE SYSTEM CALCIUM 10.5 8.4 - 10.5 mg/dL INTERFACE SYSTEM 11/26/2005 5:12 PM CDT us Jewell Ulloa MD CHEMISTRY ORDERABLES Final Result INTERFACE SYSTEM Refer to clinic/hospital department * (ABNORMAL) CBC WITH DIFFERENTIAL (11/26/2005 5:12 PM CDT) WBC 8.4 4.8 - 10.8 K/ul INTERFACE SYSTEM RBC 4.72 4.20 - 5.40 Mil/ul INTERFACE SYSTEM HEMOGLOBIN 14.3 12.0 - 16.0 g/dL INTERFACE SYSTEM HEMATOCRIT 42.2 36.0 - 46.0 % INTERFACE SYSTEM MCV 89.4 84.0 - 103.0 Fl INTERFACE SYSTEM MCH 30.3 27.0 - 34.0 pg INTERFACE SYSTEM MCHC 33.9 30.0 - 35.0 g/dL INTERFACE SYSTEM RDW 12.8 11.0 - 14.5 % INTERFACE SYSTEM PLATELETS 317 140 - 440 K/ul INTERFACE SYSTEM MPV 9.7 8.9 - 12.8 Fl INTERFACE SYSTEM NEUTROPHILS 42.8 42.2 - 75.2 % INTERFACE SYSTEM LYMPHOCYTES 39.6 24.0 - 44.0 % INTERFACE SYSTEM MONOCYTES 8.7 2.0 - 10.0 % INTERFA CE SYSTEM EOSINOPHILS 8.4(H) 0.0 - 7.0 % INTERF KAYKAY SYSTEM BASOPHILS 0.5 0.0 - 1.0 % INTERFAC E SYSTEM NEUTROPHIL ABSOLUTE 3.6 2.0 - 8.0 K/uL INTERFACE SYSTEM LYMPHOCYTE ABSOLUTE 3.3 1.2 - 4.0 K/ul INTERFACE SYSTEM MONOCYTE ABSOLUTE 0.7(H) 0.1 - 0.6 K/ul INTERFACE SYSTEM EOSINOPHIL ABSOLUTE 0.7 0.0 - 0.7 K/ul INTERFACE SYSTEM BASOPHILS ABSOLUTE 0.0 0.0 - 0.2 K/ul INTERFACE SYSTEM HEM COMMENT Automated Diff Automated Diff INTERFACE SYSTEM 11/26/2005 5:12 PM CDT Jewell Ulloa MD HEMATOLOGY ORDERABLES Final Result INTERFACE SYSTEM Refer to clinic/hospital department documented in this encounter Visit Diagnoses Diagnosis Ulcer of calf (CMS/HCC)- Primary Ulcer of calf documented in this encounter Care Teams Packing Floor Worker Relationship Specialty Start Date End Date Efren Romano MD [address] [address] PCP - General 05/22/05 documented as of this encounter
--- OUTSIDE RECORDS SUMMARY | 2025-04-06 07:51 | XMS_ITS | Encounter Summary ---
Author Organization [facility] Address [address] [place] [address] Care Team Providers Care Agricultural Engineering Teacher Name Role Phone Efren Romano MD Primary Care Provider Encounter Details Date Type Department Care Team (Late st Contact Info) Description 03/15/2006 Outpatient Historical [facility] Plastic Surgery 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
--- OUTSIDE RECORDS SUMMARY | 2025-04-06 07:51 | XMS_ITS | Encounter Summary ---
Author Organization [facility] Address [address] [place] [address] Care Team Providers Care Tele Marketing Executive Name Role Phone Efern Romano MD Primary Care Provider [phone] Encounter Details Date Type Department Care Team (Latest Contact Info) Description 03/15/2006 Outpatient Historical [facility] Wound Care [address] 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
--- OUTSIDE RECORDS SUMMARY | 2025-04-06 07:51 | XMS_ITS | Encounter Summary ---
Author Organization [facility] Address [address] [place] [address] Care Team Providers Care Sailing Officer Name Role Phone Efren Romano MD Primary Care Provider [phone] Encounter Details Date Type Department Care Team (Late st Contact Info) Description 12/31/2005 Outpatient Historical [facility] Plastic Surgery 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
--- OUTSIDE RECORDS SUMMARY | 2025-04-06 07:51 | XMS_ITS | Encounter Summary ---
Author Organization [facility] Address [address] [place] [address] Care Team Providers Care 911 Emergency Services Dispatcher Name Role Phone Efren Romano MD Primary Care Provider [phone] Encounter Details Date Type Department Care Team (Late st Contact Info) Description 11/23/2005 Outpatient Historical [facility] Plastic Surgery 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
--- OUTSIDE RECORDS SUMMARY | 2025-04-06 07:51 | XMS_ITS | Encounter Summary ---
Author Organization [facility] Address [address] [place] [address] Care Team Providers Care Supervisor Putty And Caluking Name Role Phone Efren Romano MD Primary Care Provider [phone] Encounter Details Date Type Department Care Team (Latest Contact Info) Description 05/06/2002 Outpatient Historical [facility] Blair Gonsalves MD [address] [place] [address] HYPERTENSION NOS (Primary Dx); OSTEOARTHROS NOS-UNSPEC; ALLERGIC RHINITIS NOS Social History Tobacco Use Types Packs/Day Years Used Date Smoking Tobacco: Never Assessed Comments Unknown Sex and Gender Information Value Date Recorded Sex Assigned at Not on file Legal 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
--- OUTSIDE RECORDS SUMMARY | 2025-04-06 07:51 | XMS_ITS | Encounter Summary ---
Author Organization [facility] Address [address] [place] [address] Care Team Providers Care Making Line Worker Name Role Phone Efren Romano MD Primary Care Provider [phone] Encounter Details Date Type Department Care Team (Late st Contact Info) Description 12/07/2005 Outpatient Historical [facility] Plastic Surgery 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
--- NOTE | 2025-04-06 07:57 | ED_ITS ---
HPI - Wound/Laceration 2 General: Chief Complaint: Wound/Laceration Stated Complaint: Leg pain Time Seen by Provider: 04/06/25 07:53 History of Present Illness: 74-year-old female presents emergency ro om with complaint of leg pain. She has some dementia she is not very helpful with history. Her reported that 4 days ago she developed a wound on her left leg is a small abrasion above the patella. No recollection of direct trauma patient has not had any fevers or chills no drainage from the wound. Associated symptoms: Denies chills or fever(s) Related Data Home Medications ?Medication ?Instructions ?Recorded ?Confirmed atorvastatin 40 mg tablet (Lipitor) 40 mg PO BEDTIME 1 10/19/23 citalopram 20 mg tablet (Celexa) 20 mg PO QAM 03/21/20 10/19/23 ferrous sulfate 325 mg (65 mg 325 mg PO DAILY 03/21/20 10/19/23 iron) tablet (Iron (ferrous sulfate)) oxybutynin chloride 5 mg tablet 5 mg PO BID 03/21/20 0 10/19/23 ropinirole 1 mg tablet See Rx Instructions .Route . COMPLEX 03/21/20 10/19/23 tizanidine 4 mg tablet 4 mg PO TID PRN Muscle Spasm 03/21/20 10/19/23 trazodone 100 mg tablet 100 mg PO BEDTIME 03/21/20 0 10/19/23 amitriptyline 25 mg tablet 25 mg PO BEDTIME 12/30/20 0 10/19/23 diazepam 5 mg tablet 5 mg PO BID 12/30/20 4 nystatin 100,000 unit/gram topical 1 applic topical DA VEGA PRN Rash 01/19/23 10/19/23 powder omeprazole 20 mg capsule,delayed 20 mg PO DAILY 10/19/23 release acetaminophen 500 mg tablet 1,000 mg PO Q8H PRN Pain 0 09/26/23 10/19/23 furosemide 20 mg tablet 20 mg PO DAILY 09/26/2309/25 potassium chloride 20 mEq 20 meq PO DAILY 09/26/23 tablet,extended release(part/cryst) promethazine-DM 6.25 mg-15 mg/5 mL 5 ml PO DAILY PRN C ough 09/26/23 10/19/23 oral syrup Previous Rx's ?Medication ?Instructions ?Recorded woundvac #1 ea 04/06/21 albuterol sulfate 2.5 mg/3 mL 2.5 mg (3 mL) inhalation Q6H PRN 07/30/23 (0.083 %) solution for nebulization shortness of breat h or wheezing #75 mL hydrocodone 5 mg-acetaminophen 325 1 tab PO Q6H PRN pa in #25 tabs 09/18/23 mg tablet mupirocin 2 % topical ointment 1 applic topical DAILY #50 grams 09/26/23 cyanocobalamin (vitamin B-12) 5,000 mcg PO DAILY #30 c aps 10/23/23 5,000 mcg capsule Allergies Allergy/AdvReac Type Severity Reaction Status Date / Time fluconazole Allergy Unknown Verified 09/26/23 08:52 latex Allergy Unknown Verified 09/26/23 08:52 Sulfa (Sulfonamide Allergy Unknown Verified 09/26/23 08:52 Antibiotics) Review of Systems 2 Const: Denies: fever(s) or chills Card: Denies: chest pain Resp: Denies: dyspnea GI: Denies: abdominal pain : Denies: dysuria, urinary frequency or urinary urgency Musc: Denies: neck pain or back pain Skin/Breast: Denies: rash PFSH ED 2 PFSH: Medical History Infection due to ESBL-producing Escherichia coli DVT prophylaxis Dysphagia Pneumonia Sepsis Wound of left lower extremity Fracture of lateral malleolus of left fibula Adult BMI 40.0-44.9 kg/sq m Anemia UTI (urinary tract infection) Diastolic CHF Supracondylar fracture of left femur Fracture of distal end of femur Chronic antibiotic suppression Has been taking nitrofurantoin for last 6 months as per the Chronic anticoagulation Coumadin 2 and 3mg daily depending on INR 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 Presence of IVC filter Lymphedema Venous stasis dermatitis Chronic anemia Chronic kidney disease, stage II (mild) Dyslipidemia Hypertension Left-sided weakness CVA (cerebral vascular accident) Surgical History History of hip surgery H/O shoulder surgery History of hysterectomy S/P cholecystectomy Family History Other CAD (coronary artery disease) Hypertension Stroke Social History Smoking and tobacco/nicotine status: never used tobacco/nicotine Alcohol intake: never Substance/Drug Use: never Household members: spouse Housing: House Physical Exam 2 Const: COMMON NORMALS: no acute distress GENERAL APPEARANCE: cooperative and comfortable ORIENTATION/CONSCIOUSNESS: Yes awake HENMT: COMMON NORMALS: normocephalic, atraumatic and hearing grossly normal bilaterally HEAD & SCALP: normocephalic and atraumatic Resp: COMMON NORMALS: normal respiratory effort, No retractions, No use of accessory muscles and clear to auscultation bilaterally AUSCULTATION: clear to auscultation bilaterally Cardio: COMMON NORMALS: regular rate, regular rhythm and No murmurs present (Cardio) RATE: regular rate RHYTHM: regular rhythm GI: COMMON NORMALS: Soft to palpation and No hepatosplenomegaly present A USCULTATION: Yes normoactive bowel sounds PALPATION: Yes Soft to palpation, No Tenderness to palpation present (GI), No Guarding due to palpation present (GI) and Yes No hepatosplenomegaly present Extremity: COMMON NORMALS: normal to inspection, capillary refill normal, no clubbing, cyanosis or edema, no calf tenderness and no pedal edema Course 2 Vital Signs: Vital signs: Vital Signs Temperature 98.6 F 04/06/25 07:48 Pulse Rate 75 04/06/25 12:55 Respiratory Rate 16 04/06/25 12:55 Blood Pressure 142/90 04/06/25 12:55 Pulse Oximetry 96 04/06/25 12:55 Oxygen Delivery Me thod Room Air 04/06/25 12:55 MDM - Wound/Laceration Medical Decision Making Patient has abrasion above the knee there is no sign of infection white count is normal no other significant findings on exam or laboratory studies. Range of motion without difficulty no ecchymosis in the area no deformities no crepitus no signs of foreign body or puncture wounds no full-thickness lacerations. Recommend observation discharge home follow-up as needed Lab Data 04/06/25 08:02 04/06/25 08:02 Laboratory Results WBC 11.32 10^3/uL (3.29-11.43) 04/06/25 08:02 RBC 4.16 10^6/uL (3.85-5.65) 04/06/25 08:02 Hgb 11.90 g/dL (11.27-16.99) 04/06/25 08:02 Hct 38.3 % (36-47) 04/06/25 08:02 MCV 92.1 fl (85-98) 04/06/25 08:02 MCH 28.6 pg (27-33) 04/06/25 08:02 MCHC 31.1 g/dL (30-55) 04/06/25 08:02 RDW 14.6 % (12.1-15.1) 04/06/25 08:02 Plt Count 299 10^3/cmm (157-399) 04/06/25 08:02 MPV 9.6 fL (7.4-10.4) 04/06/25 08:02 Neut % (Auto) 67.4 % 04/06/25 08:02 Lymph % (Auto) 21.3 % 04/06/25 08:02 Hettinger % (Auto) 7.2 % 04/06/25 08:02 Eos % (Auto) 2.4 % 04/06/25 08:02 Baso % (Auto) 0.9 % 04/06/25 08:02 Neut # (Auto) 7.63 10^3/uL (1.8-7.7) 04/06/25 08:02 Lymph # (Auto) 2.4 10^3/uL (0.8-4.8) 04/06/25 08:02 Hettinger # (Auto) 0.8 10^3/uL (0.2-0.9) 04/06/25 08:02 Eos # (Auto) 0.3 10^3/uL (0.0-0.8) 04/06/25 08:02 Baso # (Auto) 0.1 10^3/uL (0.0-0.1) 04/06/25 08:02 Nucleated RBC % (auto) 0 % 04/06/25 08:02 Nucleated RBCs # 0.0 /100WBC 04/06/25 08:02 Sodium 142 mmol/L (136-145) 04/06/25 08:02 Potassium 4.1 mmol/L (3.5-5.1) 04/06/25 08:02 Chloride 104 mmol/L (98-107) 04/06/25 08:02 Carbon Dioxide 28 mmol/L (22-29) 04/06/25 08:02 Anion Gap 14.1 (5-19) 04/06/25 08:02 BUN 17 mg/dL (8-23) 04/06/25 08:02 Creatinine 0.5 mg/dL (0.5-0.9) 04/06/25 08:02 GFR Calculation Not Reportable 04/06/25 08:02 Glucose 100 mg/dL (65-115) 04/06/25 08:02 Calculated Osmolality 296 mOsm/kg (285-295) H 04/06/25 08:02 Calcium 8.7 mg/dL (8.5-10.5) 04/06/25 08:02 Total Bilirubin 0.6 mg/dL (0.15-1.2) 04/06/25 08:02 AST 12 U/L (0-32) 04/06/25 08:02 ALT 7 U/L (0-33) 04/06/25 08:02 Alkaline Phosphatase 19 U/L (35-105) L 04/06/25 08:02 Total Protein 7.1 g/dL (6.6-8.7) 04/06/25 08:02 Albumin 3.0 g/dL (3.5-5.2) L 04/06/25 08:02 Globulin 4.1 g/dL (1.3-4.6) 04/06/25 08:02 No radiology studies performed this visit Discharge Plan Discharge Patient Disposition: Home Clinical Impression: Abrasion of knee, left Condition: Stable Prescriptions: No Action (DME) woundvac See Rx Instructions .Route .MEDSUPPLY Qty: 1 0RF Rx Instructions: As directed atorvastatin [Lipitor] 40 mg tablet 40 mg PO BEDTIME ropinirole 1 mg tablet See Rx Instructions .ROUTE .COMPLEX Rx Instructions: 1mg po q am and 2mg po qpm tizanidine 4 mg tablet 4 mg PO TID PRN (Reason: Muscle Spasm) citalopram [Celexa] 20 mg tablet 20 mg PO QAM trazodone 100 mg tablet 100 mg PO BEDTIME ferrous sulfate [Iron (ferrous sulfate)] 325 mg (65 mg iron) Tablet 325 mg PO DAILY oxybutynin chloride 5 mg tablet 5 mg PO BID amitriptyline 25 mg tablet 25 mg PO BEDTIME diazepam 5 mg tablet 5 mg PO BID omeprazole 20 mg capsule,delayed release(DR/EC) 20 mg PO DAILY nystatin 100,000 unit/gram Powder 1 applic TOPICAL DAILY PRN (Reason: Rash) hydrocodone-acetaminophen 5-325 mg tablet 1 tab PO Q6H PRN (Reason: pain) Qty: 25 0RF albuterol sulfate 2.5 mg /3 mL (0.083 %) solution for nebulization 2.5 mg inhalation Q6H PRN (Reason: shortness of breath or wheezing) Qty: 75 0RF promethazine-DM 6.25-15 mg/5 mL syrup 5 ml PO DAILY PRN (Reason: Cough) potassium chloride 20 mEq tablet,ER particles/crystals 20 meq PO DAILY furosemide 20 mg tablet 20 mg PO DAILY acetaminophen 500 mg tablet 1,000 mg PO Q8H PRN (Reason: Pain) mupirocin 2 % ointment 1 applic topical DAILY Qty: 50 0RF cyanocobalamin (vitamin B-12) 5,000 mcg capsule 5,000 mcg PO DAILY Qty: 30 0RF Discharge Orders: Discharge ED (Routine); Ordered 04/06/25 Ordered By: Raul Vieyra Referrals: Efren Romano MD [Primary Care Provider, [facility]] Discharge Diet: Usual diet Discharge Activity: Resume usual activity Patient Instructions: Opioid Safety, Pain Management, Patient Portal & Mary Instructions Activity Restrictions/Additional Instructions: Thank you for choosing [facility] for your healthcare needs today. It is very important that you follow up as instructed or that you return to the Emergency Department should you have concerns or if your condition changes or worsens in any way. Emergency department visits are focused on emergent conditions, in some cases you may require further evaluation on an outpatient basis. You were seen in the emergency room with complaints of a wound on the left leg. The inferior portion of the old incision is healing there is no sign of infection there is an abrasion on the medial aspect of the left knee also does not look as if it is infected. Apply topical antibiotic ointment to these wounds and apply topical bandage until healed. (Please note that included in your discharge packet is information concerning opioid safety and pain management. This information is given to all patients were discharged from the ER regardless of their discharge diagnosis or the medicines they usually take or are prescribed.) Print Language: Armenian Coding Level of Care Code ED Commodity Manager for Martín Curiel
[2025-04-06 08:06] LABS: Hematocrit 38.3 % (36-47); Hemoglobin 11.90 g/dL (11.27-16.99); Mean Corpuscular HGB Conc 31.1 g/dL (30-55); Mean Corpuscular Hemoglobin 28.6 pg (27-33); Mean Corpuscular Volume 92.1 fl (85-98); Nucleated Red Blood Cells % 0 %; Platelet Count 299 10^3/cmm (157-399); Red Blood Count 4.16 10^6/uL (3.85-5.65); White Blood Count 11.32 10^3/uL (3.29-11.43)
[2025-04-06 08:27] LABS: Alanine Aminotransferase 7 U/L (0-33); Albumin Level 3.0 g/dL (3.5-5.2); Alkaline Phosphatase 19 U/L (35-105); Anion Gap 14.1 (5-19); Aspartate Amino Transferase 12 U/L (0-32); Blood Urea Nitrogen 17 mg/dL (8-23); Calcium 8.7 mg/dL (8.5-10.5); Carbon Dioxide 28 mmol/L (22-29); Chloride 104 mmol/L (98-107); Globulin 4.1 g/dL (1.3-4.6); Glucose 100 mg/dL (65-115); Osmolality Calculated 296 mOsm/kg (285-295); Potassium 4.1 mmol/L (3.5-5.1); Sodium 142 mmol/L (136-145); Total Protein 7.1 g/dL (6.6-8.7)
[2025-04-06 09:32] VITALS: BP 120/85; PULSE 77; O2SAT 100
--- NOTE | 2025-04-06 09:32 | PC.NURSE ---
CLEANED AND BANDAGED WOUND ON LEFT LEG
[2025-04-06 12:55] VITALS: BP 142/90; PULSE 75; RESP 16; O2SAT 96
== END 2025-04-06 13:27 | disposition home or self-care (01) ==
PROVIDERS: Emergency Provider Family Medicine; PCP Family Medicine
DX: S80.212A Abrasion, left knee, initial encounter (principal); E78.5 Hyperlipidemia, unspecified; Z86.73 Personal history of transient ischemic attack (TIA), and cerebral infarction without residual deficits; I13.0 Hypertensive heart and chronic kidney disease with heart failure and stage 1 through stage 4 chronic kidney disease, or unspecified chronic kidney disease; N18.2 Chronic kidney disease, stage 2 (mild); I50.30 Unspecified diastolic (congestive) heart failure; X58.XXXA Exposure to other specified factors, initial encounter
CPT/HCPCS: 36415; 80053; 85025; 99283

== ENCOUNTER 2025-05-21 08:53 | Inpatient (IN) | payer MEDICARE, MEDICAID, SELFPAY ==
[2025-05-21] VITALS (14 sets, daily range): BP systolic 105–167; BP diastolic 61–85; PULSE 68–97; RESP 16–22; TEMP 36.3–36.7; O2SAT 92–98; BMI 24.8
--- OUTSIDE RECORDS SUMMARY | 2025-05-21 08:58 | XMS_ITS | Encounter Summary ---
Author Organization [facility] Address [address] [place] [address] Care Team Providers Care Real Estate Instructor Name Role Phone Efren Romano MD Primary Care Provider [phone] Encounter Details Date Type Department Care Team (Late st Contact Info) Description 04/05/2020 Lab Requisition [facility] Services [address] [place] [address] Efren Romano MD [address] [place] [id number] Social History Tobacco Use Types Packs/Day Years Used Date Smoking Tobacco: Never Smokeless Tobacco: Never Alcohol Use Standard Drinks/Week Comments No 0 (1 standard drink = 0.6 oz pur e alcohol) Comments No Sex and Gender Information Value Date Recorded Sex Assigned at Not on file Legal Sex Female 6:27 AM SPACE SYSTEMS OPERATIONS SUPERINTENDENT Gender Identity Not on file Sexual Orientation Not on file documented as of this encounter Plan of Treatment Not on file documented as of this encounter Procedures Procedure Name Priority Date/Time Associated Diagnosis Comments URINE CULTURE Routine 04/05/2020 4:10 AM SPACE SYSTEMS OPERATIONS SUPERINTENDENT documented in this encounter Results * URINE CULTURE (04/05/2020 4:10 AM SPACE SYSTEMS OPERATIONS SUPERINTENDENT) CULTURE No growth 04/06/2020 3:18 PM SPACE SYSTEMS OPERATIONS SUPERINTENDENT [facility] Urine URINE SPECIMEN / Unknown 04/05/2020 4:10 AM SPACE SYSTEMS OPERATIONS SUPERINTENDENT 04/05/2020 9:18 PM SPACE SYSTEMS OPERATIONS SUPERINTENDENT us Efren Romano MD MICROBIOLOGY - GENERAL ORDERA BLES Final Result [facility] [address] [place] [address] [place] [address] documented in this encounter Visit Diagnoses Not on filedocumented in this encounter Care Teams Real Estate Instructor Relationship Specialty Start Date End Date Efren Romano MD [address] [address] PCP - General 05/22/05 documented as of this encounter
--- OUTSIDE RECORDS SUMMARY | 2025-05-21 08:58 | XMS_ITS | Clinical Summary ---
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 Gender Identity Not on file Sexual Orientation Not on file Plan of Treatment Health Maintenance Due Date Last Done Comments DTAP/TDAP/TD VACCINES (1 - Tdap) 1969 COLORECTAL SCREENING 1995 Colorectal Cancer Screening 1995 [...] series) 2025 Medical Devices Implanted Type Area Special Services Director Device Identifier Shelf Expiration Date Model / Serial / Lot [place]-Nail Retrograde Femoral Nail Implanted:Qty: 1 on 08/12/2009 Nail Right: Leg [employer] 09/24/2018 [id number] / / [id number] Log [id number] - S&N Trigen Vigil Nail System - 1 - Nail Retro Fem [place] 13x36 [id number] Implanted:Qty: 1 on 05/11/2010 Nail Right: Femur [employer] 10/26/2019 [id number] / N/A / [id number] Screw Trgn Intrnl Cap 5.0x55mm [id number] Implanted:Qty: 1 on 08/12/2009 Screw Right: Leg [employer] 10/25/2018 [id number] / / [id number] Screw Trgn Intrnl Cap 5.0x70mm [id number] Implanted:Qty: 1 on 08/12/2009 Screw Right: Leg [employer] 12/25/2018 [id number] / / [id number] Log 84787 - S[employer]N Trigen Vigil Nail System - 1 - Screw Trgn Intrnl Cap 5.0x35mm [id number] Implanted:Qty: 1 on 05/11/2010 Screw Right: Femur [employer]O 02/25/2020 [id number] / N/A / [id number] Log 15739 - S&N Trigen Vigil Nail System - 1 - Screw Trgn Intrnl Cap 5.0x55mm [id number] Implanted:Qty: 1 on 05/11/2010 Screw Right: Femur [employer]O 12/26/2019 [id number] / N/A / [id number] Care Teams Investment Underwriter Relationship Specialty Start Date End Date Efren Romano MD [address] [place] [address] PCP - General 05/22/05
--- OUTSIDE RECORDS SUMMARY | 2025-05-21 08:58 | XMS_ITS | Encounter Summary ---
Author Organization [facility] Address [address] [place] [address] Care Team Providers Care Brusher Hand Name Role Phone Efren Romano MD Primary Care Provider [phone] Encounter Details Date Type Department Care Team (Late st Contact Info) Description 02/15/2006 Outpatient Historical [facility] Plastic Surgery [address] 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
--- OUTSIDE RECORDS SUMMARY | 2025-05-21 08:58 | XMS_ITS | Encounter Summary ---
Author Organization [facility] Address [address] [place] [address] Care Team Providers Care Clinical Asst Name Role Phone Efren Romano MD Primary Care Provider [phone] Encounter Details Date Type Department Care Team (Late st Contact Info) Description 12/27/2005 Outpatient Historical [facility] Plastic Surgery [address] [place] 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
--- OUTSIDE RECORDS SUMMARY | 2025-05-21 08:58 | XMS_ITS | Encounter Summary ---
Author Organization [facility] Address [address] [place] [address] Care Team Providers Care Phys Ther Name Role Phone Efren Romano MD Primary Care Provider Encounter Details Date Type Department Care Team (Late st Contact Info) Description 04/15/2006 Outpatient Historical [facility] [address] 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
--- OUTSIDE RECORDS SUMMARY | 2025-05-21 08:58 | XMS_ITS | Encounter Summary ---
Author Organization [facility] Address [address] [place] [address] Care Team Providers Care Pediatric Occupational Therapist Name Role Phone Efren Romano MD Primary Care Provider [phone] Encounter Details Date Type Department Care Team (Late st Contact Info) Description 08/19/2002 Outpatient Historical [facility] Blair Gonsalves MD [address] [place] [address] Social History Tobacco Use Types Packs/Day Years Used Date Smoking Tobacco: Never Assessed Comments Unknown Sex and Gender Information Value Date Recorded Sex Assigned at Not on file 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
--- OUTSIDE RECORDS SUMMARY | 2025-05-21 08:58 | XMS_ITS | Encounter Summary ---
Author Organization [facility] Address [address] [place] [address] Care Team Providers Care Call Or Contact Centre Manager Name Role Phone Efren Romano MD Primary Care Provider [phone] Encounter Details Date Type Department Care Team (Late st Contact Info) Description 01/18/2006 Outpatient Historical [facility] Plastic Surgery [address] [place] [address] [place] [address] Pablo Vail MD [address] [place] [address] Follow-Up Examination, Following Unspecified Surgery (Primary Dx) Social History Tobacco Use Types Packs/Day Years Used Date Smoking Tobacco: Never Assessed Comments Unknown Sex and Gender Information Value Date Recorded Sex Assigned at Not on file Legal Sex Female 6:27 AM DEVIL DOG Gender Identity Not on file Sexual Orientation Not on file documented as of this encounter Plan of Treatment Not on file documented as of this encounter Visit Diagnoses Diagnosis Follow-up examination, following unspecified surgery- Primary documented in this encounter Care Teams Call Or Contact Centre Manager Relationship Specialty Start Date End Date Efren Romano MD [address] [id number] PCP - General 05/22/05 documented as of this encounter
--- OUTSIDE RECORDS SUMMARY | 2025-05-21 08:58 | XMS_ITS | Encounter Summary ---
Author Organization [facility] Address [address] [place] [address] Care Team Providers Care Director Building Name Role Phone Efren Romano MD Primary Care Provider [phone] Encounter Details Date Type Department Care Team (Late st Contact Info) Description 12/27/2005 Outpatient Historical [facility] [address] [place] [address] 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
--- OUTSIDE RECORDS SUMMARY | 2025-05-21 08:58 | XMS_ITS | Encounter Summary ---
Author Organization [facility] Address [address] [place] [address] Care Team Providers Care Production Support Manager Name Role Phone Efren Romano MD Primary Care Provider [phone] Encounter Details Date Type Department Care Team (Late st Contact Info) Description 12/07/2005 Outpatient Historical [facility] Plastic Surgery [address] [place] 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
--- OUTSIDE RECORDS SUMMARY | 2025-05-21 08:58 | XMS_ITS | Encounter Summary ---
Author Organization [facility] Address [address] [place] [address] Care Team Providers Care Photograph Inspector Name Role Phone Efren Romano MD Primary Care Provider [phone] Encounter Details Date Type Department Care Team (Late st Contact Info) Description 12/21/2005 Outpatient Historical [facility] Plastic Surgery 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
--- OUTSIDE RECORDS SUMMARY | 2025-05-21 08:58 | XMS_ITS | Encounter Summary ---
Author Organization [employer] [facility] Address [address] [place] [address] Care Team Providers Care Mba Internship Name Role Phone Efren Romano MD Primary Care Provider [phone] Encounter Details Date Type Department Care Team (Latest Contact Info) Description 05/06/2002 Outpatient Historical [facility] Blair Gonsalves MD [address] [place] [address] HYPERTENSION NOS (Primary Dx); OSTEOARTHROS NOS-UNSPEC; ALLERGIC RHINITIS NOS Social History Tobacco Use Types Packs/Day Years Used Date Smoking Tobacco: Never Assessed Comments Unknown Sex and Gender Information Value Date Recorded Sex Assigned at Not on file 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
--- OUTSIDE RECORDS SUMMARY | 2025-05-21 08:58 | XMS_ITS | Encounter Summary ---
Author Organization [facility] Address [address] [place] [address] Care Team Providers Care Pool Technician Name Role Phone Efren Romano MD Primary Care Provider [phone] Encounter Details Date Type Department Care Team (Late st Contact Info) Description 03/15/2006 Outpatient Historical [facility] Plastic Surgery [address] [place] 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
--- OUTSIDE RECORDS SUMMARY | 2025-05-21 08:58 | XMS_ITS | Encounter Summary ---
Author Organization [facility] Address [address] [place] [address] Care Team Providers Care Workers' Compensation Commissioner Name Role Phone Efren Romano MD Primary Care Provider [phone] Encounter Details Date Type Department Care Team (Late st Contact Info) Description 10/05/2005 Outpatient Historical [facility] Plastic Surgery [address] [place] 

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
--- OUTSIDE RECORDS SUMMARY | 2025-05-21 08:58 | XMS_ITS | Encounter Summary ---
Author Organization [facility] Address [address] [place] [address] Care Team Providers Care Mophead Trimmer And Wrapper Name Role Phone Efren Romano MD Primary Care Provider [phone] Encounter Details Date Type Department Care Team (Late st Contact Info) Description 03/26/2020 Lab Requisition [facility] Laboratory Services [place] [address] [place] [address] Efren Romano MD [address] [address] Social History Tobacco Use Types Packs/Day Years Used Date Smoking Tobacco: Never Smokeless Tobacco: Never Alcohol Use Standard Drinks/Week Comments No 0 (1 standard drink = 0.6 oz pur e alcohol) Comments No Sex and Gender Information Value Date Recorded Sex Assigned at Not on file Legal Sex Female 6:27 AM BIOLOGICAL INSPECTOR Gender Identity Not on file Sexual [...] 12.0 - 14.4 Seconds 03/26/2020 12:36 PM [facility] INR 3.2(H) 0.8 - 1.2 03/26/2020 12:36 PM [facility] Blood 03/26/2020 10:1 5 AM CDT 03/26/2020 12:21 PM CDT Efren Romano MD HEMATOLOGY ORDERABLES Final R esult [facility] CLIA # [id number] [address] [place] [address] * (ABNORMAL) BASIC METABOLIC PANEL (03/26/2020 10:15 AM CDT) SODIUM 139 136 - 145 mmol/L 03/26/2020 12:45 PM [facility] POTASSIUM 3.3(L) 3.5 - 5.1 mmol/L 03/26/2020 12:45 PM [facility] CHLORIDE 94(L) 98 - 107 mmol/L 03/26/2020 12:45 PM [facility] CO2 31(H) 22 - 29 mmol/L 03/26/2020 12:45 PM [facility] CALCIUM 10.2 8.8 - 10.2 mg/dL 03/26/2020 12:45 PM [facility] BUN 36(H) 8 - 23 mg/dL 03/26/2020 12:45 PM [facility] CREATININE 0.96(H) 0.51 - 0.95 mg/dL 03/26/2020 12:45 PM [facility] GLUCOSE 118(H) 74 - 99 mg/dL 03/26/2020 12:45 PM [facility] GFR 58(L) >=60 mL/min/1.7 3 sq meter 03/26/2020 12:45 PM [facility] Comment: eGFR has not been validated for [...] 3 sq meter 03/26/2020 12:45 PM CDT [facility] ANION GAP 14 12 - 20 mmol/L 03/26/2020 12:45 PM CDT [facility] Blood 03/26/2020 10:1 5 AM CDT 03/26/2020 12:21 PM CDT us Efren Romano MD CHEMISTRY ORDERABLES Final Re sult [facility] CLIA # [id number] [address] [place] [id number] documented in this encounter Visit Diagnoses Not on filedocumented in this encounter Care Teams Mophead Trimmer And Wrapper Relationship Specialty Start Date End Date Efren Romano MD [address] [place] [address] PCP - General 05/22/05 documented as of this encounter
--- OUTSIDE RECORDS SUMMARY | 2025-05-21 08:58 | XMS_ITS | Clinical Summary ---
Author Organization [facility] Address [address] [place] [address] Phone Care Team Providers Care Maintenance Fitter Name Role Phone Efren Romano MD Primary Care Provider [phone] Allergies Active Allergy Reactions Criticality Noted Date [...] on file Legal Sex Female 6:27 AM DRIVER ENGINEER Gender Identity Not on file Sexual Orientation Not on file Last Filed Vital Signs Vital Sign Reading Time Taken Comments Blood Pressure 134/61 05/14/2010 10:12 AM DRIVER ENGINEER Pulse 75 05/14/2010 10:12 AM DRIVER ENGINEER Temperature 35.6 C (96 F) 05/14/2010 10:12 AM DRIVER ENGINEER Respiratory Rate 18 05/14/2010 10:1 2 AM DRIVER ENGINEER Oxygen Saturation 93% 05/14/2010 6:39 AM DRIVER ENGINEER Inhaled Oxygen Concentration - - Weight 110.4 kg (243 lb 6.2 oz) 05/11/2010 5:38 AM DRIVER ENGINEER Height 152.4 cm (5') 05/11/2010 5:38 AM DRIVER ENGINEER Body Mass Index 47.53 05/11/2010 5:38 AM DRIVER ENGINEER Plan of Treatment Health Maintenance Due Date [...] series) 2025 Medical Devices Implanted Type Area Search Coordinator Device Identifier Shelf Expiration Date Model / Serial / Lot [place]-Nail Retrograde Femoral Nail Implanted:Qty: 1 on 08/12/2009 at [facility] [place] Right: Leg [employer] 09/24/2018 [id number] / / [id number] Log [id number] - S&N Trigen Vigil Nail System - 1 - Nail Retro Fem [place] 13x36 [id number] Implanted:Qty: 1 on 05/11/2010 at [facility] [place] [facility] Right: Femur [employer] 10/26/2019 [id number] / N/A / [id number] Screw Trgn Intrnl Cap 5.0x55mm [id number] Implanted:Qty: 1 on 08/12/2009 at [facility] [place] Screw Right: Leg [employer] 10/25/2018 [id number] / / [id number] Screw Trgn Intrnl Cap 5.0x70mm [id number] Implanted:Qty: 1 on 08/12/2009 at [facility] [place] Screw Right: Leg [employer] 12/25/2018 [id number] / / [id number] Log [id number] - S&N Trigen Vigil Nail System - 1 - Screw Trgn Intrnl Cap 5.0x55mm [id number] Implanted:Qty: 1 on 05/11/2010 at [facility] [place] Screw Right: Femur [employer] 12/26/2019 [id number] / N/A / [id number] Log [id number] - S&N Trigen Vigil Nail System - 1 - Screw Trgn Intrnl Cap 5.0x35mm [id number] Implanted:Qty: 1 on 05/11/2010 at [facility] Screw Right: Femur [employer] 02/25/2020 [id number] / N/A / [id number] Insurance MEDICARE PART A AND B MEDICAID [facility] Advance Directives For more information, please contact: [phone] * Full Code (Latest Code Status on [...] 6:47 AM 08/12/2009 10:20 AM Care Teams Maintenance Fitter Relationship Specialty Start Date End Date Efren Romano MD [address] [place] [id number] PCP - General 05/22/05
--- OUTSIDE RECORDS SUMMARY | 2025-05-21 08:58 | XMS_ITS | Encounter Summary ---
Author Organization [employer] [facility] Address [address] [place] [address] Care Team Providers Care Dispatcher Chief Oil Name Role Phone Efren Romano MD Primary Care Provider [phone] Encounter Details Date Type Department Care Team (Latest Contact Info) Description 05/22/2005 Outpatient Historical [facility] Josef Conte MD [address] [facility] [address] [place] [address] LUMB/LUMBOSAC DISC DEGEN (Primary Dx) Social History Tobacco Use Types Packs/Day Years Used Date Smoking Tobacco: Never Assessed Comments Unknown Sex and Gender Information Value Date Recorded Sex Assigned at Not on file Legal Sex Female 6:27 AM PASSENGER SERVICE MANAGER Gender Identity Not on file Sexual Orientation Not on file documented as of this encounter Plan of Treatment Not on file documented as of this encounter Visit Diagnoses Diagnosis Degeneration of lumbar or lumbosacral intervertebral disc- Primary documented in this encounter Care Teams Dispatcher Chief Oil Relationship Specialty Start Date End Date Efren Romano MD 5 [facility] 1 [place], [place] [address] PCP - General 05/22/05 documented as of this encounter
--- OUTSIDE RECORDS SUMMARY | 2025-05-21 08:58 | XMS_ITS | Encounter Summary ---
Author Organization [facility] Address [address] [place] [address] Care Team Providers Care Developmental Specialist Name Role Phone Efren Romano MD Primary Care Provider [phone] Encounter Details Date Type Department Care Team (Late st Contact Info) Description 11/26/2005 Emergency [facility] Emergency Department [address] [place] [address] Jewell Ulloa MD [address] [place] [address] Chronic Ulcer of Calf (CMS/HCC) (Primary Dx) Social History Tobacco Use Types Packs/Day Years Used Date Smoking Tobacco: Never Assessed Comments Unknown Sex and Gender Information Value Date Recorded Sex Assigned at Not on file Legal Sex Female 6:27 AM WATER RESOURCES PROGRAM DIRECTOR Gender Identity Not on file [...] Diff INTERFACE SYSTEM 11/26/2005 5:12 PM CDT us Jewell Ulloa MD HEMATOLOGY ORDERABLES Final Result INTERFACE SYSTEM Refer to clinic/hospital department documented in this encounter Visit Diagnoses Diagnosis Ulcer of calf (CMS/HCC)- Primary Ulcer of calf documented in this encounter Care Teams Developmental Specialist Relationship Specialty Start Date End Date Efren Roamno MD [address] [address] PCP - General 05/22/05 documented as of this encounter
--- OUTSIDE RECORDS SUMMARY | 2025-05-21 08:58 | XMS_ITS | Encounter Summary ---
Author Organization [employer] [facility] Address [address] [place] [address] Care Team Providers Care Publicity Expert Name Role Phone Efren Romano MD Primary Care Provider [phone] Encounter Details Date Type Department Care Team (Latest Contact Info) Description 11/25/2002 Outpatient Historical [facility] Blair Gonsalves MD [address] [place] [address] OSTEOARTHROS NOS-L/LEG (Primary Dx); Asymptomatic varicose veins; HYPERLIPIDEMIA NEC/NOS Social History Tobacco Use Types Packs/Day Years Used Date Smoking Tobacco: Never Assessed Comments Unknown Sex and Gender Information Value Date Recorded Sex Assigned at Not on file Legal Sex Female 6:27 AM STEEL ESTIMATOR Gender Identity Not on file Sexual Orientation Not on file documented as of this encounter Plan of Treatment Not on file documented as of this encounter Visit Diagnoses Diagnosis Osteoarthrosis, unspecified whether generalized or localized, lower leg- Primary Asymptomatic varicose veins Uncomplicated varicose veins Other and unspecified hyperlipidemia documented in this encounter Care Teams Publicity Expert Relationship Specialty Start Date End Date Efren Romano MD [address] [address] PCP - General 05/22/05 documented as of this encounter
--- OUTSIDE RECORDS SUMMARY | 2025-05-21 08:58 | XMS_ITS | Encounter Summary ---
Author Organization [facility] Address [address] [place] [address] Care Team Providers Care Tape Stringer Name Role Phone Efren Romano MD Primary Care Provider [phone] Encounter Details Date Type Department Care Team (Late st Contact Info) Description 12/31/2005 Outpatient Historical [facility] Plastic Surgery [address] [place] [address] [place] [address] Pablo Vail MD [address] [place] [address] Follow-Up Examination, Following Unspecified Surgery (Primary Dx) Social History Tobacco Use Types Packs/Day Years Used Date Smoking Tobacco: Never Assessed Comments Unknown Sex and Gender Information Value Date Recorded Sex Assigned at Not on file Legal Sex Female 6:27 AM DITCH REPAIRER Gender Identity Not on file Sexual Orientation Not on file documented as of this encounter Plan of Treatment Not on file documented as of this encounter Visit Diagnoses Diagnosis Follow-up examination, following unspecified surgery- Primary documented in this encounter Care Teams Tape Stringer Relationship Specialty Start Date End Date Efren Romano MD [address] [id number] PCP - General 05/22/05 documented as of this encounter
--- OUTSIDE RECORDS SUMMARY | 2025-05-21 08:58 | XMS_ITS | Encounter Summary ---
Author Organization [facility] Address [address] [place] [address] Care Team Providers Care Production Illustrator Name Role Phone Efren Romano MD Primary Care Provider [phone] Encounter Details Date Type Department Care Team (Latest Contact Info) Description 12/21/2005 Outpatient Historical [facility] [address] [place] [place] [address] Pablo Vail MD [address] [place] [address] Pre-Operative Cardiovascular Examination (Primary Dx) Social History Tobacco Use Types Packs/Day Years Used Date Smoking Tobacco: Never Assessed Comments Unknown Sex and Gender Information Value Date Recorded Sex Assigned at Not on file Legal Sex Female 6:27 AM DEICER REPAIRER Gender Identity Not on file Sexual [...] INTERFACE SYSTEM 12/21/2005 12:5 5 PM CDT Pablo Vail MD CHEMISTRY ORDERABLES Final Resul t INTERFACE SYSTEM Refer to clinic/hospital department documented in this encounter Visit Diagnoses Diagnosis Pre-operative cardiovascular examination- Primary documented in this encounter Care Teams Production Illustrator Relationship Specialty Start Date End Date Efren Romano MD [address] [address] PCP - General 05/22/05 documented as of this encounter
--- OUTSIDE RECORDS SUMMARY | 2025-05-21 08:58 | XMS_ITS | Encounter Summary ---
Author Organization [facility] Address [address] [place] [address] Care Team Providers Care Manager Environmental Health And Safety Name Role Phone Efren Romano MD Primary Care Provider [phone] Encounter Details Date Type Department Care Team (Late st Contact Info) Description 11/23/2005 Outpatient Historical [facility] Plastic Surgery [address] [place] [address] [place] [address] Pablo Vail MD [address] [place] [address] Chronic Ulcer of Calf (CMS/HCC) (Primary Dx) Social History Tobacco Use Types Packs/Day Years Used Date Smoking Tobacco: Never Assessed Comments Unknown Sex and Gender Information Value Date Recorded Sex Assigned at Not on file Legal Sex Female 6:27 AM REGISTERED MAIL CLERK Gender Identity Not on file Sexual Orientation Not on file documented as of this encounter Plan of Treatment Not on file documented as of this encounter Visit Diagnoses Diagnosis Ulcer of calf (CMS/HCC)- Primary Ulcer of calf documented in this encounter Care Teams Manager Environmental Health And Safety Relationship Specialty Start Date End Date Efren Romano MD [address] [address] PCP - General 05/22/05 documented as of this encounter
--- OUTSIDE RECORDS SUMMARY | 2025-05-21 08:58 | XMS_ITS | Encounter Summary ---
Author Organization [employer] [facility] Address [address] [place] [address] Care Team Providers Care Cable Armorer Operator Name Role Phone Efren Romano MD Primary Care Provider [phone] Encounter Details Date Type Department Care Team (Latest Contact Info) Description 08/19/2002 Outpatient Historical HIS [facility] Blair Gonsalves MD [address] [place] [address] DERMATITIS NOS (Primary Dx); OSTEOPOROSIS NOS; AFTERCARE CORRECTION USE MEDICATN Social History Tobacco Use Types Packs/Day Years Used Date Smoking Tobacco: Never Assessed Comments Unknown Sex and Gender Information Value Date Recorded Sex Assigned at Not on file Legal Sex Female 6:27 AM GLASS CHECKER Gender Identity Not on file Sexual Orientation Not on file documented as of this encounter Plan of Treatment Not on file documented as of this encounter Visit Diagnoses Diagnosis Contact dermatitis and other eczema, due to unspecified cause- Primary Osteoporosis, unspecified Encounter for long-term (current) use of other medications documented in this encounter Care Teams Cable Armorer Operator Relationship Specialty Start Date End Date Efren Romano MD [address] [id number] PCP - General 05/22/05 documented as of this encounter
--- OUTSIDE RECORDS SUMMARY | 2025-05-21 08:58 | XMS_ITS | Encounter Summary ---
Author Organization [facility] Address [address] [place] [address] Care Team Providers Care Electromedical Equipment Repairer Name Role Phone Efren Romano MD Primary Care Provider [phone] Encounter Details Date Type Department Care Team (Latest Contact Info) Description 05/22/2005 Outpatient Historical [facility] [address] [place] [address] Josef Conte MD [address] [facility] [address] [place] [address] LUMBAGO (Primary Dx) Social History Tobacco Use Types Packs/Day Years Used Date Smoking Tobacco: Never Assessed Comments Unknown Sex and Gender Information Value Date Recorded Sex Assigned at Not on file Legal Sex Female 6:27 AM FIELD RING ASSEMBLER Gender Identity Not on file Sexual Orientation Not on file documented as of this encounter Plan of Treatment Not on file documented as of this encounter Visit Diagnoses Diagnosis Lumbago- Primary documented in this encounter Care Teams Electromedical Equipment Repairer Relationship Specialty Start Date End Date Efren Romano MD [address] [facility] 1 [place], [place] [address] PCP - General 05/22/05 documented as of this encounter
--- OUTSIDE RECORDS SUMMARY | 2025-05-21 08:58 | XMS_ITS | Encounter Summary ---
Author Organization [facility] Address [address] [place] [address] Care Team Providers Care Brand Planner Name Role Phone Efren Romano MD Primary Care Provider [phone] Encounter Details Date Type Department Care Team (Late st Contact Info) Description 04/01/2020 Lab Requisition [facility] Laboratory Services [address] [place] [address] Geovanni Cline MD [address] [address] Social History Tobacco Use Types Packs/Day Years Used Date Smoking Tobacco: Never Smokeless Tobacco: Never Alcohol Use Standard Drinks/Week Comments No 0 (1 standard drink = 0.6 oz pur e alcohol) Comments No Sex and Gender Information Value Date Recorded Sex Assigned at Not on file Legal Sex Female 6:27 AM HARDWARE INSTALLER Gender Identity Not on file Sexual Orientation Not on file documented as of this encounter Plan of Treatment Not on file documented as of this encounter Procedures Procedure Name Priority Date/Time Associated Diagnosis Comments PROTIME-INR Routine 04/01/2020 4:05 AM HARDWARE INSTALLER documented in this encounter Results * (ABNORMAL) PROTIME-INR (04/01/2020 4:05 AM HARDWARE INSTALLER) PROTIME 29.6(H) 11.9 - 15.5 Seconds 04/01/2020 5:53 PM [facility] INR 2.7(H) 0.8 - 1.2 04/01/2020 5:53 PM [facility] Blood Collection / Unknown 04/01/2020 4:05 AM HARDWARE INSTALLER 04/01/2020 5:30 PM HARDWARE INSTALLER Narrative [facility] - 04/01/2020 5:53 PM HARDWARE INSTALLER Expected Values for INR: DVT/PE Goal INR 2.5; range 2.0 - 3.0 Valve Replacement Tissue Goal INR 2.5; range 2.0 - 3.0 Valve Replacement Mechanical Goal INR 3.0; range 2.5 - 3.5 POST-[place] Goal INR 2.5; range 2.0 - 3.0 or Goal INR 3.0; range 2.5 - 3.5 Atrial Fibrillation Goal INR 2.5; range 2.0 - 3.0 Ischemic Stroke Goal INR 2.5; range 2.0 - 3.0 For additional information see Guidelines for Anticoagulation available from the pharmacy Margarita Tenorio Pharm D. us Geovanni Cline MD HEMATOLOGY ORDERABLES Final R esult [facility] [address] [place] [address] documented in this encounter Visit Diagnoses Not on filedocumented in this encounter Care Teams Brand Planner Relationship Specialty Start Date End Date Efren Romano MD [address] [place] [address] PCP - General 05/22/05 documented as of this encounter
--- OUTSIDE RECORDS SUMMARY | 2025-05-21 08:58 | XMS_ITS | Encounter Summary ---
Author Organization [facility] Address [address] [place] [address] Care Team Providers Care Junior Administrative Assistant Name Role Phone Efren Romano MD Primary Care Provider [phone] Encounter Details Date Type Department Care Team (Late st Contact Info) Description 10/26/2005 Outpatient Historical [facility] Plastic Surgery [address] [place] [address] [place] [address] Pablo Vail MD [address] [place] [address] Chronic Ulcer of Calf (CMS/HCC) (Primary Dx) Social History Tobacco Use Types Packs/Day Years Used Date Smoking Tobacco: Never Assessed Comments Unknown Sex and Gender Information Value Date Recorded Sex Assigned at Not on file Legal Sex Female 6:27 AM QUARTER TRIMMER Gender Identity Not on file Sexual Orientation Not on file documented as of this encounter Plan of Treatment Not on file documented as of this encounter Visit Diagnoses Diagnosis Ulcer of calf (CMS/HCC)- Primary Ulcer of calf documented in this encounter Care Teams Junior Administrative Assistant Relationship Specialty Start Date End Date Efren Romano MD [address] [address] PCP - General 05/22/05 documented as of this encounter
--- OUTSIDE RECORDS SUMMARY | 2025-05-21 08:58 | XMS_ITS | Encounter Summary ---
Author Organization [facility] Address [address] [place] [address] Care Team Providers Care Photographic Specialist Name Role Phone Efren Romano MD Primary Care Provider [phone] Encounter Details Date Type Department Care Team (Latest Contact Info) Description 03/15/2006 Outpatient Historical [facility] Wound Care [address] [place] [address] Pablo Vail MD [address] [place] [address] Injury, Other and Unspecified, Knee, Leg, Ankle, and Foot (Primary Dx) Social History Tobacco Use Types Packs/Day Years Used Date Smoking Tobacco: Never Assessed Comments Unknown Sex and Gender Information Value Date Recorded Sex Assigned at Not on file Legal Sex Female 6:27 AM FRUIT EXPRESS AGENT Gender Identity Not on file Sexual Orientation Not on file documented as of this encounter Plan of Treatment Not on file documented as of this encounter Visit Diagnoses Diagnosis Injury, other and unspecified, knee, leg, ankle, and foot- Primary documented in this encounter Care Teams Photographic Specialist Relationship Specialty Start Date End Date Efren Romano MD [address] [address] PCP - General 05/22/05 documented as of this encounter
--- OUTSIDE RECORDS SUMMARY | 2025-05-21 08:58 | XMS_ITS | Encounter Summary ---
Author Organization [facility] Address [address] [place] [address] Care Team Providers Care Airplane First Officer Name Role Phone Efren Romano MD Primary Care Provider [phone] Encounter Details Date Type Department Care Team (Late st Contact Info) Description 01/04/2006 Outpatient Historical [facility] Plastic Surgery [address] [place] [address] [place] [address] Pablo Vail MD [address] [place] [address] Follow-Up Examination, Following Unspecified Surgery (Primary Dx) Social History Tobacco Use Types Packs/Day Years Used Date Smoking Tobacco: Never Assessed Comments Unknown Sex and Gender Information Value Date Recorded Sex Assigned at Not on file Legal Sex Female 6:27 AM STOCK TAKER Gender Identity Not on file Sexual Orientation Not on file documented as of this encounter Plan of Treatment Not on file documented as of this encounter Visit Diagnoses Diagnosis Follow-up examination, following unspecified surgery- Primary documented in this encounter Care Teams Airplane First Officer Relationship Specialty Start Date End Date Efren Romano MD [address] [address] PCP - General 05/22/05 documented as of this encounter
--- NOTE | 2025-05-21 09:05 | XRR_ITS ---
PROCEDURE INFORMATION: Exam: XR Chest Exam date and time: 05/21/2025 09:50 AM Age: 75 years old Clinical indication: Pain; Shortness of breath; Chest pressure; Additional info: SOB, cp, hypoxia TECHNIQUE: Imaging protocol: Radiologic exam of the chest. Views: 1 view. COMPARISON: CR XR chest 1V portable [id number] 10/23/2023 01:53 PM FINDINGS: Lungs: Unremarkable. No consolidation. Pleural spaces: Unremarkable. No pleural effusion. No pneumothorax. Heart/Mediastinum: Cardiac size and configuration is stable. Vasculature: Atherosclerotic vascular disease. Diaphragm: Persistent asymmetric elevation of the right hemidiaphragm. Bones/joints: Osteopenia. Radiopaque anchor of the proximal left humerus. Degenerative changes of both shoulders. Degenerative changes of the spine. XR/XR chest 1V portable [id number] IMPRESSION: No acute findings.
--- NOTE | 2025-05-21 09:09 | ECG_ITS ---
[facility] Therapy Records Test Date: 2025-05-21 Pat Name: Doris Clarke Department: Room: Gender: Female Medical Assistant Internal Medicine: : 1950 Requested By: Lj Johnson Order Number: [id number] Alberto MD: DEVONTE HOWELL Measurements Intervals [place] Rate: 92 P: 45 SD: 132 QRS: 20 QRSD: 90 T: -62 QT: 340 QTc: 423 Interpretive Statements SINUS RHYTHM ST DEVIATION AND MODERATE T-WAVE ABNORMALITY, CONSIDER ANTEROLATERAL ISCHEMIA [-0.1+ mV T-WAVE IN V3-V6] ST DEVIATION AND MODERATE T-WAVE ABNORMALITY, CONSIDER INFERIOR ISCHEMIA [-0.1+ mV T-WAVE IN II/aVF] Compared to ECG 07/24/2023 18:17:43 No significant changes Electronically Signed On 05-23-2025 23:07:51 [employer]TERN [employer]ANGER by DEVONTE HOWELL [email or web address]
--- NOTE | 2025-05-21 09:09 | W.ED.SOB ---
Documented by User: AI Marcus 05/21/25 13:59 HPI - SOB/Dyspnea General: Chief Complaint: Altered Mental Status Stated Complaint: SOB Time Seen by Provider: 05/21/25 09:01 Source: family and EMS Mode of arrival: EMS Limitations: altered mental status and physical limitation History of Present Illness: HPI Narrative: Patient is a 75-year-old female with extensive past medical history including recurrent pneumonia, sepsis, recurrent UTI, congestive heart failure, pulmonary artery hypertension, CVA, anemia, and chronic kidney disease presenting to the emergency department by ambulance for reported altered mental status and respiratory distress. Patient is from home, patient's called due to the symptoms, she is alert and oriented to herself only but not to place and time. Chronically she is on 3 to 4 L of oxygen but has been requiring 6 L here to maintain above 90%. EMS reported to us that the patient had indicated she was short of breath on the way to the hospital but here does not respond to me when I ask her if she is having any symptoms. She has not reported of any pain anywhere. No fevers have been reported at home, no vomiting or diarrhea. Patient has not been coughing. There is moderate respiratory distress noted at this time with tachypnea and use of accessory muscles to breathe. Patient cannot provide any reliable history or review of systems secondary to her mental status. Awaiting on 's arrival to provide more history. MD elicited complaint: shortness of breath Related Data Home Medications ?Medication ?Instructions ?Recorded ?Confirmed atorvastatin 40 mg tablet (Lipitor) 40 mg PO BEDTIME 03/21/20 05/21/25 citalopram 20 mg tablet (Celexa) 20 mg PO QAM 03/21/20 05/21/25 ferrous sulfate 325 mg (65 mg 325 mg PO DAILY 03/21/20 05/21/25 iron) tablet (Iron (ferrous sulfate)) oxybutynin chloride 5 mg tablet 5 mg PO BID 03/21/20 05/21/25 ropinirole 1 mg tablet See Rx Instructions .Route .COMPLEX 03/21/20 05/21/25 tizanidine 4 mg tablet 4 mg PO TID PRN Muscle Spasm 03/21/20 05/21/25 trazodone 100 mg tablet 100 mg PO BEDTIME 03/21/20 05/21/25 amitriptyline 25 mg tablet 25 mg PO BEDTIME 12/30/20 05/21/25 diazepam 5 mg tablet 5 mg PO BID 12/30/20 05/21/25 nystatin 100,000 unit/gram topical 1 applic topical DAILY PRN Rash 01/19/23 05/21/25 powder omeprazole 20 mg capsule,delayed 20 mg PO DAILY 01/19/23 05/21/25 release acetaminophen 500 mg tablet 1,000 mg PO Q8H PRN Pain 09/26/23 05/21/25 furosemide 20 mg tablet 20 mg PO DAILY 09/26/23 05/21/25 promethazine-DM 6.25 mg-15 mg/5 mL 5 ml PO DAILY PRN Cough 09/26/23 05/21/25 oral syrup atropine 1 % eye drops 4 drp ophthalmic (eye) Q4H PRN dry 05/21/25 05/21/25 eye diphenoxylate-atropine 2.5 1 tab PO QID 05/21/25 05/21/25 mg-0.025 mg tablet metoprolol tartrate 25 mg tablet 12.5 mg PO BID 05/21/25 05/21/25 nitrofurantoin macrocrystal 50 mg 50 mg PO DAILY 05/21/25 05/21/25 capsule Previous Rx's ?Medication ?Instructions ?Recorded woundvac #1 ea 04/06/21 albuterol sulfate 2.5 mg/3 mL 2.5 mg (3 mL) inhalation Q6H PRN 07/30/23 (0.083 %) solution for nebulization shortness of breath or wheezing #75 mL Allergies Allergy/AdvReac Type Severity Reaction Status Date / Time fluconazole Allergy Unknown Verified 09/26/23 08:52 latex Allergy Unknown Verified 09/26/23 08:52 Sulfa (Sulfonamide Allergy Unknown Verified 09/26/23 08:52 Antibiotics) Review of Systems General: Reports: ROS unobtainable due to medical condition and ROS unobtainable due to mental status PFSH ED PFSH: Medical History Infection due to ESBL-producing Escherichia coli DVT prophylaxis Dysphagia Pneumonia Sepsis Wound of left lower extremity Fracture of lateral malleolus of left fibula Adult BMI 40.0-44.9 kg/sq m Anemia UTI (urinary tract infection) Diastolic CHF Supracondylar fracture of left femur Fracture of distal end of femur Chronic antibiotic suppression Has been taking nitrofurantoin for last 6 months as per the Chronic anticoagulation Coumadin 2 and 3mg daily depending on INR 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 Presence of IVC filter Lymphedema Venous stasis dermatitis Chronic anemia Chronic kidney disease, stage II (mild) Dyslipidemia Hypertension Left-sided weakness CVA (cerebral vascular accident) Surgical History History of hip surgery H/O shoulder surgery History of hysterectomy S/P cholecystectomy Family History Other CAD (coronary artery disease) Hypertension Stroke Social History (Reviewed 05/21/25 @ 13:30 by Jessica Mar, [employer] 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 Respiratory distress noted HENMT: COMMON NORMALS: normocephalic and atraumatic HEAD & SCALP: normocephalic and atraumatic OTHER: Dry oral mucosa Eye: OTHER: Dilated pupils that are slow to react to light and accommodation Neck/C-Spine: COMMON NORMALS: full ROM Chest: COMMONS NORMALS: normal inspection of the chest Resp: OTHER: Tachypnea, use of accessory muscles. Diffuse inspiratory wheezing, shallow breaths Cardio: COMMON NORMALS: regular rate and regular rhythm RATE: regular rate RHYTHM: regular rhythm GI: COMMON NORMALS: Soft to palpation and non-tender PALPATION: Yes Soft to palpation OTHER: Umbilical hernia Extremity: NARRATIVE EXTREMITY EXAM: Chronic venous stasis changes bilateral lower extremities Neuro: COMMON NORMALS: moves all extremities, no focal motor deficits and no sensory deficits noted SENSORIUM/ORIENTATION: Yes alert, Yes oriented to person and Yes Orientation impaired OTHER: Chronic spastic hand deformity bilateral upper extremities Response to verbal cues, eyes open continuously and track midline Skin: NARRATIVE SKIN EXAM: Large decubitus ulcer with extensive surrounding warmth and erythema Course Vital Signs: Vital signs: Vital Signs Temperature 98.1 F 05/21/25 09:02 Pulse Rate 92 05/21/25 09:02 Respiratory Rate 16 05/21/25 09:02 Blood Pressure 152/77 05/21/25 09:02 Pulse Oximetry 93 05/21/25 09:02 Oxygen Delivery Me thod Nasal Cannula 05/21/25 09:02 Oxygen Flow Rate 5 05/21/25 09:02 MDM - SOB/Dyspnea Medical Decision Making Patient presented by ambulance from home, for altered mental status and increased oxygen requirement. is primary caregiver, patient during exam alert oriented to self only but not to place and time. Pupils dilated and delayed responsiveness to light and accommodation. Chronically ill-appearing, with mild signs of respiratory distress. Requiring 5 L of oxygen to maintain above 90%, chronically is on 3 L. Rest of her vitals have been stable she is not tachycardic and blood pressure has been not hypotensive significantly. Lab work revealing mild leukocytosis, urinary tract infection present, but no significant electrolyte derangement, no significant acidosis on her ABG, and viral swab negative. Also notable is the large pressure ulcer to her sacral region, appearing to be in stage III with underlying adiposity present and it is likely that her increase respiratory drive and hypoxia could be a early septic picture from dermatologic source or urologic source. This patient requiring IV antibiotics and fluids, mental status has remained unchanged, and her head CT showing no acute intracranial findings. She will be admitted to [facility] by Dr. Novoa, Dr. Bird informed of patient's case here in the ED and will place admit orders. I spoke to the patient's in the room who is her primary caregiver and agrees with this plan at this time, all other questions and concerns addressed and he provided further history that the patient for a couple of days has been acting this way. Lab Data 05/21/25 08:33 05/21/25 08:33 Labs/Radiology: Radiology Impressions Chest X-Ray 05/21/25 09:05 IMPRESSION: No acute findings. Chest/Abdomen/Pelvis CT 05/21/25 09:18 IMPRESSION: 1. Quality of this examination is compromised by artifact and motion. 2. Tiny filling defect segmental branch LEFT upper lobe pulmonary artery. This may be chronic. Large portions of the ulnar arteries are obscured by artifact. 3. Marked fecal retention and air throughout the colon. Marked rectal distention up to 10 cm in diameter. 4. Gallbladder not identified and may've been surgically removed. Mild central biliary dilatation probably on the basis of cholecystectomy. Common bile duct is poorly visualized but not dilated near the pancreatic head. 5. IVC filter. 6. No renal obstruction. 7. Superficial RIGHT decubitus ulcer measures 2.8 x 1.8 cm. 8. Anderson catheter in a nondistended urinary bladder. 9. No abscess or GI tract perforation identified. Head CT 05/21/25 09:19 IMPRESSION: 1. No acute intracranial hemorrhage or edema. 2. Moderate symmetric cerebral and cerebellar atrophy with mild small vessel changes. 3. Ventriculomegaly on the basis of atrophy. Laboratory Results WBC 13.54 10^3/uL (3.29-11.43) H 05/21/25 08:33 RBC 4.19 10^6/uL (3.85-5.65) 05/21/25 08:33 Hgb 12.50 g/dL (11.27-16.99) 05/21/25 08:33 Hct 38.6 % (36-47) 05/21/25 08:33 MCV 92.1 fl (85-98) 05/21/25 08:33 MCH 29.8 pg (27-33) 05/21/25 08:33 MCHC 32.4 g/dL (30-55) 05/21/25 08:33 RDW 15.4 % (12.1-15.1) H 05/21/25 08:33 Plt Count 291 10^3/cmm (157-399) 05/21/25 08:33 MPV 10.3 fL (7.4-10.4) 05/21/25 08:33 Neut % (Auto) 76.1 % 05/21/25 08:33 Lymph % (Auto) 13.6 % 05/21/25 08:33 Rich % (Auto) 9.0 % 05/21/25 08:33 Eos % (Auto) 0.3 % 05/21/25 08:33 Baso % (Auto) 0.6 % 05/21/25 08:33 Neut # (Auto) 10.30 10^3/uL (1.8-7.7) H 05/21/25 08:33 Lymph # (Auto) 1.8 10^3/uL (0.8-4.8) 05/21/25 08:33 Rich # (Auto) 1.2 10^3/uL (0.2-0.9) H 05/21/25 08:33 Eos # (Auto) 0.0 10^3/uL (0.0-0.8) 05/21/25 08:33 Baso # (Auto) 0.1 10^3/uL (0.0-0.1) 05/21/25 08:33 Nucleated RBC % (auto) 0 % 05/21/25 08:33 Nucleated RBCs # 0.0 /100WBC 05/21/25 08:33 Specimen Type Arterial 05/21/25 09:21 Sample Site Brachial, left 05/21/25 09:21 ABG pH 7.46 (7.35-7.45) H 05/21/25 09:21 ABG pCO2 42.1 mmHg (35-45) 05/21/25 09:21 ABG pO2 74.7 mmHg (80.0-100.0) L 05/21/25 09:21 ABG PO2/FiO2 Ratio 186 05/21/25 09:21 ABG HCO3 29.7 mmol/L (22-26) H 05/21/25 09:21 ABG O2 Saturation 96.1 05/21/25 09:21 ABG Base Excess 5.3 mmol/L (-2.0-2.0) H 05/21/25 09:21 Galen Test Pos 05/21/25 09:21 A-a O2 Gradient 20.3 mmHg (5-10) H 05/21/25 09:21 Hematocrit 37.6 % (37-47) 05/21/25 09:21 Hgb O2 Saturation 93.8 % (95-100) L 05/21/25 09:21 Carboxyhemoglobin 2.1 %THgb (0.4-20.1) 05/21/25 09:21 Methemoglobin 0.2 % (0.4-1.5) L 05/21/25 09:21 Total Hemoglobin 12.3 g/dL (12-16) 05/21/25 09:21 Sodium 135.0 mmol/L (131-143) 05/21/25 09:21 Potassium 3.8 mmol/L (3.5-5.0) 05/21/25 09:21 Glucose 103.0 mg/dL (70-115) 05/21/25 09:21 Ionized Calcium 1.2 mmol/L (1.1-1.4) 05/21/25 09:21 O2 Delivery Device Nc 05/21/25 09:21 O2 Liters/Min 5.0 % 05/21/25 09:21 FiO2 40.0 % 05/21/25 09:21 Nautical Instrument Mechanic ID Monro 05/21/25 09:21 Sodium 133 mmol/L (136-145) L 05/21/25 08:33 Potassium 3.9 mmol/L (3.5-5.1) 05/21/25 08:33 Chloride 94 mmol/L (98-107) L 05/21/25 08:33 Carbon Dioxide 28 mmol/L (22-29) 05/21/25 08:33 Anion Gap 14.9 (5-19) 05/21/25 08:33 BUN 13 mg/dL (8-23) 05/21/25 08:33 Creatinine 0.5 mg/dL (0.5-0.9) 05/21/25 08:33 GFR Calculation Not Reportable 05/21/25 08:33 Glucose 92 mg/dL (65-115) 05/21/25 08:33 Calculated Osmolality 276 mOsm/kg (285-295) L 05/21/25 08:33 Lactic Acid 1.0 mmol/L (0.5-2.2) 05/21/25 08:33 Calcium 8.6 mg/dL (8.5-10.5) 05/21/25 08:33 Magnesium 1.9 mg/dL (1.7-2.3) 05/21/25 08:33 Total Bilirubin 1.3 mg/dL (0.15-1.2) H 05/21/25 08:33 AST 14 U/L (0-32) 05/21/25 08:33 ALT 9 U/L (0-33) 05/21/25 08:33 Alkaline Phosphatase 20 U/L (35-105) L 05/21/25 08:33 Troponin T Baseline 23 ng/L (0-10) H 05/21/25 08:33 Troponin T 60 Minute 21.64 ng/L (0-10) H 05/21/25 09:38 Delta Troponin T -1.36 ABS# (0-10) L 05/21/25 09:38 NT-Pro-B Natriuret Pep 440 pg/mL (0-450) 05/21/25 08:33 Total Protein 6.9 g/dL (6.6-8.7) 05/21/25 08:33 Albumin 3.2 g/dL (3.5-5.2) L 05/21/25 08:33 Globulin 3.7 g/dL (1.3-4.6) 05/21/25 08:33 Procalcitonin 0.13 ng/mL (0-0.5) 05/21/25 08:33 Urine Color [place] (Yellow) A 05/21/25 09:09 Urine Appearance Cloudy (CLEAR) A 05/21/25 09:09 Urine pH 5.0 (5-7) 05/21/25 09:09 Ur Specific [place] 1.021 (1.005-1.030) 05/21/25 09:09 Urine Protein Trace (Negative) A 05/21/25 09:09 Urine Glucose (UA) Negative (Normal) 05/21/25 09:09 Urine Ketones Trace (Negative) 05/21/25 09:09 Urine Blood 3+ (Negative) A 05/21/25 09:09 Urine Nitrate Positive (Negative) A 05/21/25 09:09 Urine Bilirubin 1+ (Negative) H 05/21/25 09:09 Urine Urobilinogen 1.0 mg/dL (Negative) 05/21/25 09:09 Ur Leukocyte Esterase 2+ (Negative) A 05/21/25 09:09 Urine RBC 21-50 /hpf (0-2) H 05/21/25 09:09 Urine WBC 51-100 /hpf (0-5) H 05/21/25 09:09 Ur Squamous Epith Cells 6-10 /hpf (0-5) 05/21/25 09:09 Amorphous Sediment Not Reportable 05/21/25 09:09 Urine Bacteria 4+ /hpf (NONE) H 05/21/25 09:09 Hyaline Casts 4.11 /lpf 05/21/25 09:09 Influenza A (PCR) Negative (Negative) 05/21/25 09:09 Influenza Type B (PCR) Negative (Negative) 05/21/25 09:09 RSV (PCR) Negative (Negative) 05/21/25 09:09 SARS-CoV-2 (PCR) Negative (Negative) 05/21/25 09:09 All radiology interpretation(s) finalized by discharge Discharge Plan Discharge Patient Disposition: Admitted As Inpatient Admit Provider: Duke Cesar Clinical Impression: Acute on chronic respiratory failure with hypoxia Urinary tract infection Qualifiers: Urinary tract infection type: acute cystitis Hematuria presence: without hematuria Qualified Code(s): N30.00 - Acute cystitis without hematuria Altered mental status Qualifiers: Altered mental status type: unspecified Qualified Code(s): R41.82 - Altered mental status, unspecified Pressure ulcer Qualifiers: Pressure injury location: sacral region Pressure injury stage: stage 3 Qualified Code(s): L89.153 - Pressure ulcer of sacral region, stage 3 Constipation Qualifiers: Constipation type: unspecified constipation type Qualified Code(s): K59.00 - Constipation, unspecified Condition: Stable Coding Level of Care Code ED Metal Dresser for Chg Fwd Documented by User: Ginny Bird MD 05/21/25 15:16 HPI - SOB/Dyspnea General: Chief Complaint: Altered Mental Status Stated Complaint: SOB Time Seen by Provider: 05/21/25 09:01 Related Data Home Medications ?Medication ?Instructions ?Recorded ?Confirmed atorvastatin 40 mg tablet (Lipitor) 40 mg PO BEDTIME 03/21/20 05/21/25 citalopram 20 mg tablet (Celexa) 20 mg PO QAM 03/21/20 05/21/25 ferrous sulfate 325 mg (65 mg 325 mg PO DAILY 03/21/20 05/21/25 iron) tablet (Iron (ferrous sulfate)) oxybutynin chloride 5 mg tablet 5 mg PO BID 03/21/20 05/21/25 ropinirole 1 mg tablet See Rx Instructions .Route .COMPLEX 03/21/20 05/21/25 tizanidine 4 mg tablet 4 mg PO TID PRN Muscle Spasm 03/21/20 05/21/25 trazodone 100 mg tablet 100 mg PO BEDTIME 03/21/20 05/21/25 amitriptyline 25 mg tablet 25 mg PO BEDTIME 12/30/20 05/21/25 diazepam 5 mg tablet 5 mg PO BID 12/30/20 05/21/25 nystatin 100,000 unit/gram topical 1 applic topical DAILY PRN Rash 01/19/23 05/21/25 powder omeprazole 20 mg capsule,delayed 20 mg PO DAILY 01/19/23 05/21/25 release acetaminophen 500 mg tablet 1,000 mg PO Q8H PRN Pain 09/26/23 05/21/25 furosemide 20 mg tablet 20 mg PO DAILY 09/26/23 05/21/25 promethazine-DM 6.25 mg-15 mg/5 mL 5 ml PO DAILY PRN Cough 09/26/23 05/21/25 oral syrup atropine 1 % eye drops 4 drp ophthalmic (eye) Q4H PRN dry 05/21/25 05/21/25 eye diphenoxylate-atropine 2.5 1 tab PO QID 05/21/25 05/21/25 mg-0.025 mg tablet metoprolol tartrate 25 mg tablet 12.5 mg PO BID 05/21/25 05/21/25 nitrofurantoin macrocrystal 50 mg 50 mg PO DAILY 05/21/25 05/21/25 capsule Previous Rx's ?Medication ?Instructions ?Recorded woundvac #1 ea 04/06/21 albuterol sulfate 2.5 mg/3 mL 2.5 mg (3 mL) inhalation Q6H PRN 07/30/23 (0.083 %) solution for nebulization shortness of breath or wheezing #75 mL Allergies Allergy/AdvReac Type Severity Reaction Status Date / Time fluconazole Allergy Unknown Verified 09/26/23 08:52 latex Allergy Unknown Verified 09/26/23 08:52 Sulfa (Sulfonamide Allergy Unknown Verified 09/26/23 08:52 Antibiotics) PFSH ED PFSH: Medical History Infection due to ESBL-producing Escherichia coli DVT prophylaxis Dysphagia Pneumonia Sepsis Wound of left lower extremity Fracture of lateral malleolus of left fibula Adult BMI 40.0-44.9 kg/sq m Anemia UTI (urinary tract infection) Diastolic CHF Supracondylar fracture of left femur Fracture of distal end of femur Chronic antibiotic suppression Has been taking nitrofurantoin for last 6 months as per the Chronic anticoagulation Coumadin 2 and 3mg daily depending on INR 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 Presence of IVC filter Lymphedema Venous stasis dermatitis Chronic anemia Chronic kidney disease, stage II (mild) Dyslipidemia Hypertension Left-sided weakness CVA (cerebral vascular accident) Surgical History History of hip surgery H/O shoulder surgery History of hysterectomy S/P cholecystectomy Family History Other CAD (coronary artery disease) Hypertension Stroke Social History (Reviewed 05/21/25 @ 13:30 by Jessica Mar, SPECIAL EDUCATION 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, 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 is primary caregiver, patient during exam alert oriented to self only but not to place and time. Pupils dilated and delayed responsiveness to light and accommodation. Chronically ill-appearing, with mild signs of respiratory distress. Requiring 5 L of oxygen to maintain above 90%, chronically is on 3 L. Rest of her vitals have been stable she is not tachycardic and blood pressure has been not hypotensive significantly. Lab work revealing mild leukocytosis, urinary tract infection present, but no significant electrolyte derangement, no significant acidosis on her ABG, and viral swab negative. Also notable is the large pressure ulcer to her sacral region, appearing to be in stage III with underlying adiposity present and it is likely that her increase respiratory drive and hypoxia could be a early septic picture from dermatologic source or urologic source. This patient requiring IV antibiotics and fluids, mental status has remained unchanged, and her head CT showing no acute intracranial findings. She will be admitted to [facility] by Dr. Novoa, Dr. Bird informed of patient's case here in the ED and will place admit orders. I spoke to the patient's in the room who is her primary caregiver and agrees with this plan at this time, all other questions and concerns addressed and he provided further history that the patient for a couple of days has been acting this way. Agree with above midlevel history and physical patient does have a sacral ulcer along with acute cytosis she is given antibiotics here will admit to hospitalist Dr. Novoa Lab Data 05/21/25 08:33 05/21/25 08:33 Labs/Radiology: Radiology Impressions Chest X-Ray 05/21/25 09:05 IMPRESSION: No acute findings. Chest/Abdomen/Pelvis CT 05/21/25 09:18 IMPRESSION: 1. Quality of this examination is compromised by artifact and motion. 2. Tiny filling defect segmental branch LEFT upper lobe pulmonary artery. This may be chronic. Large portions of the ulnar arteries are obscured by artifact. 3. Marked fecal retention and air throughout the colon. Marked rectal distention up to 10 cm in diameter. 4. Gallbladder not identified and may've been surgically removed. Mild central biliary dilatation probably on the basis of cholecystectomy. Common bile duct is poorly visualized but not dilated near the pancreatic head. 5. IVC filter. 6. No renal obstruction. 7. Superficial RIGHT decubitus ulcer measures 2.8 x 1.8 cm. 8. Anderson catheter in a nondistended urinary bladder. 9. No abscess or GI tract perforation identified. Head CT 05/21/25 09:19 IMPRESSION: 1. No acute intracranial hemorrhage or edema. 2. Moderate symmetric cerebral and cerebellar atrophy with mild small vessel changes. 3. Ventriculomegaly on the basis of atrophy. Laboratory Results WBC 13.54 10^3/uL (3.29-11.43) H 05/21/25 08:33 RBC 4.19 10^6/uL (3.85-5.65) 05/21/25 08:33 Hgb 12.50 g/dL (11.27-16.99) 05/21/25 08:33 Hct 38.6 % (36-47) 05/21/25 08:33 MCV 92.1 fl (85-98) 05/21/25 08:33 MCH 29.8 pg (27-33) 05/21/25 08:33 MCHC 32.4 g/dL (30-55) 05/21/25 08:33 RDW 15.4 % (12.1-15.1) H 05/21/25 08:33 Plt Count 291 10^3/cmm (157-399) 05/21/25 08:33 MPV 10.3 fL (7.4-10.4) 05/21/25 08:33 Neut % (Auto) 76.1 % 05/21/25 08:33 Lymph % (Auto) 13.6 % 05/21/25 08:33 Rich % (Auto) 9.0 % 05/21/25 08:33 Eos % (Auto) 0.3 % 05/21/25 08:33 Baso % (Auto) 0.6 % 05/21/25 08:33 Neut # (Auto) 10.30 10^3/uL (1.8-7.7) H 05/21/25 08:33 Lymph # (Auto) 1.8 10^3/uL (0.8-4.8) 05/21/25 08:33 Rich # (Auto) 1.2 10^3/uL (0.2-0.9) H 05/21/25 08:33 Eos # (Auto) 0.0 10^3/uL (0.0-0.8) 05/21/25 08:33 Baso # (Auto) 0.1 10^3/uL (0.0-0.1) 05/21/25 08:33 Nucleated RBC % (auto) 0 % 05/21/25 08:33 Nucleated RBCs # 0.0 /100WBC 05/21/25 08:33 Specimen Type Arterial 05/21/25 09:21 Sample Site Brachial, left 05/21/25 09:21 ABG pH 7.46 (7.35-7.45) H 05/21/25 09:21 ABG pCO2 42.1 mmHg (35-45) 05/21/25 09:21 ABG pO2 74.7 mmHg (80.0-100.0) L 05/21/25 09:21 ABG PO2/FiO2 Ratio 186 05/21/25 09:21 ABG HCO3 29.7 mmol/L (22-26) H 05/21/25 09:21 ABG O2 Saturation 96.1 05/21/25 09:21 ABG Base Excess 5.3 mmol/L (-2.0-2.0) H 05/21/25 09:21 Galen Test Pos 05/21/25 09:21 A-a O2 Gradient 20.3 mmHg (5-10) H 05/21/25 09:21 Hematocrit 37.6 % (37-47) 05/21/25 09:21 Hgb O2 Saturation 93.8 % (95-100) L 05/21/25 09:21 Carboxyhemoglobin 2.1 %THgb (0.4-20.1) 05/21/25 09:21 Methemoglobin 0.2 % (0.4-1.5) L 05/21/25 09:21 Total Hemoglobin 12.3 g/dL (12-16) 05/21/25 09:21 Sodium 135.0 mmol/L (131-143) 05/21/25 09:21 Potassium 3.8 mmol/L (3.5-5.0) 05/21/25 09:21 Glucose 103.0 mg/dL (70-115) 05/21/25 09:21 Ionized Calcium 1.2 mmol/L (1.1-1.4) 05/21/25 09:21 O2 Delivery Device Nc 05/21/25 09:21 O2 Liters/Min 5.0 % 05/21/25 09:21 FiO2 40.0 % 05/21/25 09:21 Nautical Instrument Mechanic ID Monro 05/21/25 09:21 Sodium 133 mmol/L (136-145) L 05/21/25 08:33 Potassium 3.9 mmol/L (3.5-5.1) 05/21/25 08:33 Chloride 94 mmol/L (98-107) L 05/21/25 08:33 Carbon Dioxide 28 mmol/L (22-29) 05/21/25 08:33 Anion Gap 14.9 (5-19) 05/21/25 08:33 BUN 13 mg/dL (8-23) 05/21/25 08:33 Creatinine 0.5 mg/dL (0.5-0.9) 05/21/25 08:33 GFR Calculation Not Reportable 05/21/25 08:33 Glucose 92 mg/dL (65-115) 05/21/25 08:33 Calculated Osmolality 276 mOsm/kg (285-295) L 05/21/25 08:33 Lactic Acid 1.0 mmol/L (0.5-2.2) 05/21/25 08:33 Calcium 8.6 mg/dL (8.5-10.5) 05/21/25 08:33 Magnesium 1.9 mg/dL (1.7-2.3) 05/21/25 08:33 Total Bilirubin 1.3 mg/dL (0.15-1.2) H 05/21/25 08:33 AST 14 U/L (0-32) 05/21/25 08:33 ALT 9 U/L (0-33) 05/21/25 08:33 Alkaline Phosphatase 20 U/L (35-105) L 05/21/25 08:33 Troponin T Baseline 23 ng/L (0-10) H 05/21/25 08:33 Troponin T 60 Minute 21.64 ng/L (0-10) H 05/21/25 09:38 Delta Troponin T -1.36 ABS# (0-10) L 05/21/25 09:38 NT-Pro-B Natriuret Pep 440 pg/mL (0-450) 05/21/25 08:33 Total Protein 6.9 g/dL (6.6-8.7) 05/21/25 08:33 Albumin 3.2 g/dL (3.5-5.2) L 05/21/25 08:33 Globulin 3.7 g/dL (1.3-4.6) 05/21/25 08:33 Procalcitonin 0.13 ng/mL (0-0.5) 05/21/25 08:33 Urine Color [place] (Yellow) A 05/21/25 09:09 Urine Appearance Cloudy (CLEAR) A 05/21/25 09:09 Urine pH 5.0 (5-7) 05/21/25 09:09 Ur Specific [place] 1.021 (1.005-1.030) 05/21/25 09:09 Urine Protein Trace (Negative) A 05/21/25 09:09 Urine Glucose (UA) Negative (Normal) 05/21/25 09:09 Urine Ketones Trace (Negative) 05/21/25 09:09 Urine Blood 3+ (Negative) A 05/21/25 09:09 Urine Nitrate Positive (Negative) A 05/21/25 09:09 Urine Bilirubin 1+ (Negative) H 05/21/25 09:09 Urine Urobilinogen 1.0 mg/dL (Negative) 05/21/25 09:09 Ur Leukocyte Esterase 2+ (Negative) A 05/21/25 09:09 Urine RBC 21-50 /hpf (0-2) H 05/21/25 09:09 Urine WBC 51-100 /hpf (0-5) H 05/21/25 09:09 Ur Squamous Epith Cells 6-10 /hpf (0-5) 05/21/25 09:09 Amorphous Sediment Not Reportable 05/21/25 09:09 Urine Bacteria 4+ /hpf (NONE) H 05/21/25 09:09 Hyaline Casts 4.11 /lpf 05/21/25 09:09 Influenza A (PCR) Negative (Negative) 05/21/25 09:09 Influenza Type B (PCR) Negative (Negative) 05/21/25 09:09 RSV (PCR) Negative (Negative) 05/21/25 09:09 SARS-CoV-2 (PCR) Negative (Negative) 05/21/25 09:09 Discharge Plan Discharge Patient Disposition: Admitted As Inpatient Admit Provider: Duke Cesar Clinical Impression: Acute on chronic respiratory failure with hypoxia Urinary tract infection Qualifiers: Urinary tract infection type: acute cystitis Hematuria presence: without hematuria Qualified Code(s): N30.00 - Acute cystitis without hematuria Altered mental status Qualifiers: Altered mental status type: unspecified Qualified Code(s): R41.82 - Altered mental status, unspecified Pressure ulcer Qualifiers: Pressure injury location: sacral region Pressure injury stage: stage 3 Qualified Code(s): L89.153 - Pressure ulcer of sacral region, stage 3 Constipation Qualifiers: Constipation type: unspecified constipation type Qualified Code(s): K59.00 - Constipation, unspecified Condition: Stable Coding Level of Care Code ED Metal Dresser for Martín Curiel
--- NOTE | 2025-05-21 09:18 | CT_ITS ---
WS: [id number] CTA CHEST WITH CT ABDOMEN AND PELVIS. HISTORY: Increased confusion and short of breath. TECHNIQUE: CT angiogram is performed through the chest. Additional imaging is performed through the abdomen and pelvis with IV contrast. Sagittal and coronal reformats have been submitted. MIP imaging also reviewed. All CT scans at [facility] use at least one of these dose optimization techniques: automated exposure control; mA and/or kV adjustment per patient size (includes targeted exams where dose is matched to clinical indication); or iterative reconstruction. Contrast: Omnipaque 350; 95 cc IV. DLP: 601.12 mGy.cm COMPARISON: 04/24/2021, 04/15/2021 Chest CTA: Limited opacification of the pulmonary arteries. There is a large amount of artifact through the thorax from the patient's arms being placed at her side. Poor timing of the contrast bolus. There is a large amount of contrast already within the abdominal aorta. Limited opacification of the central pulmonary arteries. Large amount of artifact through the main pulmonary artery. No large PE. There is a nonocclusive filling defect segmental branch LEFT upper lobe pulmonary artery. This may be chronic. Dilated aorta and pulmonary artery. Motion artifact throughout both lungs. Subsegmental atelectasis at the lung bases. No pneumonia. No pleural effusion or pneumothorax. Mild cardiomegaly. No adenopathy. Abdomen CT: Limited by breathing motion artifact and beam hardening artifact. Mild central bile duct dilatation may be on the basis of the cholecystectomy. Common bile duct is poorly visualized. Bile duct does not appear dilated at the pancreatic head. Severe atrophy of the pancreas. Prior cholecystectomy. Normal size spleen. No adrenal mass. RIGHT renal cyst. No renal obstruction. IVC filter. Moderate atherosclerosis abdominal aorta. Increased air and fecal material throughout the colon. No obstructive pattern. Marked fecal retention at the rectum. Transverse diameter of the rectum is 10 cm. No significant wall thickening. No abscess identified. Appendix is not definitely identified. Pelvic CT: Anderson catheter in the nondistended urinary bladder. No free fluid in the pelvis. Superficial RIGHT decubitus ulcer measures 2.8 x 1.8 cm. L4 anterolisthesis by 3 mm. Degenerative changes in the facet joints of the lumbar spine. Prior RIGHT hip ORIF. Osteonecrosis LEFT hip. Diffuse osteopenia. CT/CT angio chest w abd pel w con IMPRESSION: 1. Quality of this examination is compromised by artifact and motion. 2. Tiny filling defect segmental branch LEFT upper lobe pulmonary artery. This may be chronic. Large portions of the ulnar arteries are obscured by artifact. 3. Marked fecal retention and air throughout the colon. Marked rectal distenti on up to 10 cm in diameter. 4. Gallbladder not identified and may've been surgically removed. Mild central biliary dilatation probably on the basis of cholecystectomy. Common bile duct is poorly visualized but not dilated near the pancreatic head. 5. IVC filter. 6. No renal obstruction. 7. Superficial RIGHT decubitus ulcer measures 2.8 x 1.8 cm. 8. Anderson catheter in a nondistended urinary bladder. 9. No abscess or GI tract perforation identified.
--- NOTE | 2025-05-21 09:19 | CT_ITS ---
WS: [id number] CT HEAD NONCONTRAST HISTORY: AMS TECHNIQUE: Contiguous axial imaging performed through the brain. Bone and soft tissue windows. Sagittal and coronal reformats reviewed. All CT scans at [facility] use at least one of these dose optimization techniques: automated exposure control; mA and/or kV adjustment per patient size (includes targeted exams where dose is matched to clinical indication); or iterative reconstruction. DLP: 846.48 mGy.cm COMPARISON: 12/30/2020 No acute intracranial hemorrhage, midline shift or mass effect. Moderate symmetric cerebral and cerebellar atrophy. Patchy small vessel changes. No acute infarct or hemorrhage. Ventricles: Dilated ventricles and extra-axial spaces on the basis of atrophy. Paranasal sinuses: As visualized are clear. Mastoid air cells: Well pneumatized. Calvarium and scalp: Skull is intact with no soft tissue edema or swelling. CT/CT head wo con* [id number] IMPRESSION: 1. No acute intracranial hemorrhage or edema. 2. Moderate symmetric cerebral and cerebellar atrophy with mild small vessel c hanges. 3. Ventriculomegaly on the basis of atrophy.
[2025-05-21 09:33] LABS: ABG PCO2 42.1 mmHg (35-45); ABG PH Result 7.46 (7.35-7.45); Arterial Blood Gas Hematocrit 37.6 % (37-47); Blood Gas Allen Test Pos; Blood Gas Sample Type Arterial; Carboxyhemoglobin 2.1 %THgb (0.4-20.1); Glucose Level-ABG 103.0 mg/dL (70-115); HCO3 ABG 29.7 mmol/L (22-26); Ionized Calcium Level - ABG 1.2 mmol/L (1.1-1.4); Methemoglobin 0.2 % (0.4-1.5); Oxygen Saturation ABG 96.1; PO2 ABG 74.7 mmHg (80.0-100.0); Potassium Level - ABG 3.8 mmol/L (3.5-5.0); Sodium Level - ABG 135.0 mmol/L (131-143)
[2025-05-21 09:34] LABS: Alveolar-Arterial Oxygen Gradi 20.3 mmHg (5-10); Blood Gas LPM 5.0 %; Blood Gas Operator Identificat MONRO; Blood Gas Sample Site Brachial, left; PO2 FiO2 Ratio Arterial Blood 186
[2025-05-21 09:43] LABS: Glucose Urine UA Negative (Normal); Nitrate Urine Positive (Negative); Specific Gravity, Urine 1.021 (1.005-1.030)
[2025-05-21 09:46] LABS: Hematocrit 38.6 % (36-47); Hemoglobin 12.50 g/dL (11.27-16.99); Mean Corpuscular HGB Conc 32.4 g/dL (30-55); Mean Corpuscular Hemoglobin 29.8 pg (27-33); Mean Corpuscular Volume 92.1 fl (85-98); Nucleated Red Blood Cells % 0 %; Platelet Count 291 10^3/cmm (157-399); Red Blood Count 4.19 10^6/uL (3.85-5.65); White Blood Count 13.54 10^3/uL (3.29-11.43)
[2025-05-21 09:48] LABS: Add Urine Microscopic? YES
[2025-05-21 10:02] LABS: UA Slide Review UA Slide Review Perf
[2025-05-21 10:03] LABS: Lactic Sepsis W/Reflex 1.0 mmol/L (0.5-2.2)
[2025-05-21 10:12] LABS: Troponin(5th) Baseline 23 ng/L (0-10)
--- NOTE | 2025-05-21 10:15 | ECG_ITS ---
[employer] Test Date: 2025-05-21 Pat Name: Doris Clarke Department: Room: Gender: Female Garment Alteration Examiner: : 1950 Requested By: Lj Johnson Order Number: [id number] Reading MD: DEVONTE HOWELL Measurements Intervals [place] Rate: 94 P: 55 MA: 127 QRS: 34 QRSD: 98 T: -81 QT: 345 QTc: 432 Interpretive Statements SINUS RHYTHM WITH OCCASIONAL SUPRAVENTRICULAR PREMATURE COMPLEXES NONSPECIFIC T-WAVE ABNORMALITY Compared to ECG 05/21/2025 09:09:03 Possible ischemia no longer present T-wave abnormality still present Electronically Signed On 05-23-2025 23:23:40 PSYCHIATRIC ATTENDANT by DEVONTE HOWELL [id number]
[2025-05-21 10:20] LABS: NT Pro B Type Natriuretic Pept 440 pg/mL (0-450); Procalcitonin 0.13 ng/mL (0-0.5)
[2025-05-21 10:31] LABS: Alanine Aminotransferase 9 U/L (0-33); Albumin Level 3.2 g/dL (3.5-5.2); Alkaline Phosphatase 20 U/L (35-105); Anion Gap 14.9 (5-19); Aspartate Amino Transferase 14 U/L (0-32); Blood Urea Nitrogen 13 mg/dL (8-23); Calcium 8.6 mg/dL (8.5-10.5); Carbon Dioxide 28 mmol/L (22-29); Chloride 94 mmol/L (98-107); Globulin 3.7 g/dL (1.3-4.6); Glucose 92 mg/dL (65-115); Magnesium 1.9 mg/dL (1.7-2.3); Osmolality Calculated 276 mOsm/kg (285-295); Potassium 3.9 mmol/L (3.5-5.1); Sodium 133 mmol/L (136-145); Total Protein 6.9 g/dL (6.6-8.7)
[2025-05-21] MEDS: piperacillin-tazobactam 3.375 GM in sodium chloride 0.9% (plus) 50 ML IV ×2 (10:35→22:39)
[2025-05-21] MEDS: iohexol 350 mg/mL 500 mL Btl (per mL) IV (11:02)
[2025-05-21 12:19] LABS: Respiratory Syncytial Virus Ce NEGATIVE (Negative); SARS-CoV-2 PCR NEGATIVE (Negative)
--- NOTE | 2025-05-21 12:34 | PM.HP ---
Providers/Chief Complaint Admitting Physician: Jessica Mar APRN , Duke Cesar MD Primary Care Provider: Efren Romano MD Chief Complaint: SOB History of Present Illness Doris Clarke is a 75 year old female with prior medical history of HLD, CVA, UTI, anemia, falls, elevated liver enzymes, sacral decubitus ulcer stage III, bacteremia, cellulitis, and altered mental status presenting with complaints of shortness of breath. Patient is normally on 3-4 L but dropped below 90% and is now requiring 6 L to maintain acceptable O2 requirements. This morning at home, she had increased altered mental status, only oriented to self. EMS was called and she was transported to [facility] ED for assessment. Upon arrival, she was in respiratory distress requiring use of accessory muscles to breathe. At time of assessment this evening she is resting comfortably, very pleasant, requesting milk. She drinks comfortably through a straw with assistance. She cannot use her hands secondary to contractures. will be able to provide more history at a later time. In the ED, BP 152/77, HR 92, RR 16, T98.1, O2 93, 5 L nasal cannula. WBC 13.54, Hgb 12.5, PLT 291. pH 7.46, pCO2 42.1, pO2 74.7, HCO3 29.7. Na 133, Cl 94. Lactic WNL 1.0. Troponin 23 > 21.64. Urinalysis; [place], cloudy, trace protein, 3+ blood, 1+ bilirubin, nitrate positive, 2+ leukocytes, bacteria 4+. Head CT; no acute intercranial hemorrhage or edema, moderate symmetric cerebral and cerebellar atrophy with mild small vessel changes, ventriculomegaly on the basis of atrophy, see full results. CT angio chest with abdomen pelvis; quality of this exam compromised by artifact and motion, tiny filling defect segmental branch left upper lobe pulmonary artery may be chronic, large portions of the ulnar arteries obscured by artifact, marked fecal retention and air throughout the colon, marked rectal distention up to 10 cm in diameter, gallbladder not identified and may have been surgically removed, mild central biliary dilatation probably on the basis of cholecystectomy, common bile duct poorly visualized but not dilated near the pancreatic head, IVC filter, no renal obstruction, superficial right decubitus ulcer measuring 2.8 X1 0.8 cm, Anderson catheter in a nondistended urinary bladder, no abscess or GI tract perforation identified. CXR; no acute findings, see full results. Will admit to hospitalist service for further evaluation and treatment. Review of Systems General: Reports: ROS unobtainable due to medical condition and ROS unobtainable due to mental status Medications/Allergies Home Medications ?Medication ?Instructions ?Recorded ?Confirmed ?Last Taken ?Type atorvastatin 40 mg tablet (Lipitor) 40 mg PO BEDTIME 03/21/20 05/21/25 05/20/25 21:00 History citalopram 20 mg tablet (Celexa) 20 mg PO QAM 03/21/20 05/21/25 05/21/25 07:00 History ferrous sulfate 325 mg (65 mg 325 mg PO DAILY 03/21/20 05/21/25 05/20/25 History iron) tablet (Iron (ferrous sulfate)) oxybutynin chloride 5 mg tablet 5 mg PO BID 03/21/20 05/21/25 05/20/25 History ropinirole 1 mg tablet See Rx Instructions .Route .COMPLEX 03/21/20 05/21/25 05/20/25 20:00 History tizanidine 4 mg tablet 4 mg PO TID PRN Muscle Spasm 03/21/20 05/21/25 10/17/23 History trazodone 100 mg tablet 100 mg PO BEDTIME 03/21/20 05/21/25 05/20/25 21:00 History amitriptyline 25 mg tablet 25 mg PO BEDTIME 12/30/20 05/21/25 05/20/25 20:00 History diazepam 5 mg tablet 5 mg PO BID 12/30/20 05/21/25 05/20/25 History woundvac #1 ea 04/06/21 05/21/25 Unknown Rx nystatin 100,000 unit/gram topical 1 applic topical DAILY PRN Rash 01/19/23 05/21/25 07/24/23 History powder omeprazole 20 mg capsule,delayed 20 mg PO DAILY 01/19/23 05/21/25 05/20/25 History release albuterol sulfate 2.5 mg/3 mL 2.5 mg (3 mL) inhalation Q6H PRN 07/30/23 05/21/25 05/21/25 05:00 Rx (0.083 %) solution for nebulization shortness of breath or wheezing #75 mL acetaminophen 500 mg tablet 1,000 mg PO Q8H PRN Pain 09/26/23 05/21/25 05/21/25 04:30 History furosemide 20 mg tablet 20 mg PO DAILY 09/26/23 05/21/25 05/20/25 History promethazine-DM 6.25 mg-15 mg/5 mL 5 ml PO DAILY PRN Cough 09/26/23 05/21/25 05/21/25 05:00 History oral syrup atropine 1 % eye drops 4 drp ophthalmic (eye) Q4H PRN dry 05/21/25 05/21/25 05/20/25 History eye diphenoxylate-atropine 2.5 1 tab PO QID 05/21/25 05/21/25 Unknown History mg-0.025 mg tablet metoprolol tartrate 25 mg tablet 12.5 mg PO BID 05/21/25 05/21/25 05/20/25 History nitrofurantoin macrocrystal 50 mg 50 mg PO DAILY 05/21/25 05/21/25 05/20/25 History capsule Allergies Allergy/AdvReac Type Severity Reaction Status Date / Time fluconazole Allergy Unknown Verified 09/26/23 08:52 latex Allergy Unknown Verified 09/26/23 08:52 Sulfa (Sulfonamide Allergy Unknown Verified 09/26/23 08:52 Antibiotics) PFSH Acute PFSH: Medical History Infection due to ESBL-producing Escherichia coli DVT prophylaxis Dysphagia Pneumonia Sepsis Wound of left lower extremity Fracture of lateral malleolus of left fibula Adult BMI 40.0-44.9 kg/sq m Anemia UTI (urinary tract infection) Diastolic CHF Supracondylar fracture of left femur Fracture of distal end of femur Chronic antibiotic suppression Has been taking nitrofurantoin for last 6 months as per the Chronic anticoagulation Coumadin 2 and 3mg daily depending on INR 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 Presence of IVC filter Lymphedema Venous stasis dermatitis Chronic anemia Chronic kidney disease, stage II (mild) Dyslipidemia Hypertension Left-sided weakness CVA (cerebral vascular accident) Surgical History History of hip surgery H/O shoulder surgery History of hysterectomy S/P cholecystectomy Family History Other CAD (coronary artery disease) Hypertension Stroke Social History Smoking and tobacco/nicotine status: never used tobacco/nicotine Alcohol intake: never Substance/Drug Use: never Household members: spouse Housing: House Vitals/I&O/Wt Last Vital Signs Temp 98.1 F 05/21/25 09:02 Pulse 92 05/21/25 09:02 Resp 16 05/21/25 09:02 BP 152/77 05/21/25 09:02 Pulse Ox 93 05/21/25 09:02 O2 Del Method Nasal Cannula 05/21/25 09:02 O2 Flow Rate 5 05/21/25 09:02 05/20/25 05/21/25 05/21/25 22:59 06:59 14:59 Intake Total 50 / 50 Balance 50 / 50 Physical Exam Narrative: General: AAO x1 HEENT: PERRLA, pupils bilaterally equal and reactive, pallors not present Chest: Use of accessory muscles to breathe upon arrival CVS: S1-S2 regular, no murmurs, no tachycardia, no gallops, no rubs Abdomen: Soft, nontender, no organomegaly, bowel sounds present Neuro: No focal deficits, no facial deformity, AO x 1 Data 05/21/25 08:33 05/21/25 08:33 Micro: Microbiology 05/21/25 09:38 Blood Culture - Preliminary Blood SPECIMEN COLLECTED 05/21/25 09:30 Blood Culture - Preliminary Blood SPECIMEN COLLECTED A&P Assessment and plan 1. Altered mental status: History of AMS on other encounters Altered mentation above baseline pH 7.46, pCO2 42.1, pO2 74.7, HCO3 29.7 Ammonia level pending Head CT; no acute intercranial hemorrhage or edema, moderate symmetric cerebral and cerebellar atrophy with mild small vessel changes, ventriculomegaly on the basis of atrophy, see full results Lactic WNL at 1.0 Avoid sedative agents Hold home trazodone, tizanidine, and diazepam 2. Shortness of breath: On 3-4 L at baseline at home Now requiring 6 L to maintain saturations greater than 90% Monitor ABGs; pH 7.46, pCO2 42.1, pO2 74.7, HCO3 29.7 Pulse oximetry Supplemental O2 to keep saturations greater than 92% RT 3. Hypertension: BP 152/77, HR 92 BP monitoring 4. Elevated troponin: Troponin 23 >21.64 Monitor troponins CXR; no acute findings, see full results. Will admit to hospitalist service for further evaluation and treatment. EKG Telemetry 5. Urinary tract infection: WBC 13.54 Urinalysis; [place], cloudy, trace protein, 3+ blood, 1+ bilirubin, nitrate positive, 2+ leukocytes, bacteria 4+ Avoid nephrotoxic agents IVF BUN and creatinine WNL Pain management as needed PDMP PDMP Reviewed: Not Reviewed Attestations Medical Necessity Statement*: Patient expected to stay at least 2 midnights for decline in respiratory status including oxygen management. Diagnoses Altered mental status R41.82 Shortness of breath R06.02 Hypertension I10 Elevated troponin R79.89 Urinary tract infection N39.0
--- NOTE | 2025-05-21 15:05 | ECG_ITS ---
[employer] Test Date: 2025-05-21 Pat Name: Doris Clarke Department: Room: 269 Gender: Female Supervisor Multifocal Lens: : 1950 Requested By: Lj Johnson Order Number: [id number] Reading MD: DEVONTE HOWELL Measurements Intervals [place] Rate: 72 P: 40 [place]: 164 QRS: 28 QRSD: 81 T: 6 QT: 399 QTc: 438 Interpretive Statements SINUS RHYTHM ST DEVIATION AND MODERATE T-WAVE ABNORMALITY, CONSIDER ANTERIOR ISCHEMIA [-0.1+ mV T-WAVE IN V3/V4] Compared to ECG 05/21/2025 10:15:31 Possible ischemia now present T-wave abnormality still present Electronically Signed On 05-23-2025 23:22:15 UTILITY SERVICE WORKER by DEVONTE HOWELL [id number]
[2025-05-21 15:28] LABS: Troponin 5 6HR 16.44 ng/L (0-10); Troponin 5 6HR Delta -6.56 ng/L (0-12)
[2025-05-21 16:58] LABS: Base Excess VBG 2.0 mmol/L (-3.0-3.0); Blood Gas Sample Site Not specified; Blood Gas Sample Type Not specified; HCO3 VBG 29.6 mmol/L (24-28); PCO2 VBG 59.1 mmHg (41-51); PO2 VBG 34.3 mmHg (25-40); Venous Blood Gas Hematocrit 37.0 % (37-47); pH VBG 7.31 (7.32-7.42)
--- NOTE | 2025-05-21 18:04 | PHA.VACGOAL ---
Vancomycin Goal - Goal Vancomycin Goal:: 10-15 mg/L Vancomycin Indication:: Other - Therapy Day of therpy:: Day []of [] . - Data Labs: WBC 13.54 10^3/uL (3.29-11.43) H 05/21/25 08:33 RBC 4.19 10^6/uL (3.85-5.65) 05/21/25 08:33 Hgb 12.50 g/dL (11.27-16.99) 05/21/25 08:33 Hct 38.6 % (36-47) 05/21/25 08:33 MCV 92.1 fl (85-98) 05/21/25 08:33 MCH 29.8 pg (27-33) 05/21/25 08:33 MCHC 32.4 g/dL (30-55) 05/21/25 08:33 RDW 15.4 % (12.1-15.1) H 05/21/25 08:33 Sodium 133 mmol/L (136-145) L 05/21/25 08:33 Potassium 3.9 mmol/L (3.5-5.1) 05/21/25 08:33 Chloride 94 mmol/L (98-107) L 05/21/25 08:33 Carbon Dioxide 28 mmol/L (22-29) 05/21/25 08:33 Anion Gap 14.9 (5-19) 05/21/25 08:33 BUN 13 mg/dL (8-23) 05/21/25 08:33 Creatinine 0.5 mg/dL (0.5-0.9) 05/21/25 08:33 GFR Calculation Not Reportable 05/21/25 08:33 Treatment plan:: new consult Regimen:: still no weight ENTERED IN SYSTEM OR REPORTED TO PHARMACY. REQUEST MADE TO VP DIRECTOR OF CREATIVE STRATEGY @ [id number] FOR CURRENT WEIGHT
[2025-05-22] VITALS (11 sets, daily range): BP systolic 115–141; BP diastolic 51–75; PULSE 66–89; RESP 14–18; TEMP 36.6–36.7; O2SAT 91–97; BMI 25.2
[2025-05-22 03:32] LABS: Hematocrit 33.3 % (36-47); Hemoglobin 10.70 g/dL (11.27-16.99); Mean Corpuscular HGB Conc 32.1 g/dL (30-55); Mean Corpuscular Hemoglobin 30.3 pg (27-33); Mean Corpuscular Volume 94.3 fl (85-98); Nucleated Red Blood Cells % 0 %; Platelet Count 223 10^3/cmm (157-399); Red Blood Count 3.53 10^6/uL (3.85-5.65); White Blood Count 14.46 10^3/uL (3.29-11.43)
[2025-05-22 03:55] LABS: Alanine Aminotransferase 6 U/L (0-33); Albumin Level 2.5 g/dL (3.5-5.2); Alkaline Phosphatase 22 U/L (35-105); Anion Gap 10.8 (5-19); Aspartate Amino Transferase 11 U/L (0-32); Blood Urea Nitrogen 13 mg/dL (8-23); Calcium 8.4 mg/dL (8.5-10.5); Carbon Dioxide 28 mmol/L (22-29); Chloride 100 mmol/L (98-107); Globulin 3.5 g/dL (1.3-4.6); Glucose 123 mg/dL (65-115); Magnesium 2.0 mg/dL (1.7-2.3); Osmolality Calculated 281 mOsm/kg (285-295); Potassium 3.8 mmol/L (3.5-5.1); Sodium 135 mmol/L (136-145); Total Protein 6.0 g/dL (6.6-8.7)
[2025-05-22] MEDS: piperacillin-tazobactam 3.375 GM in sodium chloride 0.9% (plus) 50 ML IV ×3 (04:10→22:15)
[2025-05-22 05:08] LABS: Bacillus cereus group Not Detected (NOT DETECT); Bacillus subtillis group Not Detected (NOT DETECT); Corynebacterium Not Detected (NOT DETECT); Cutibacterium acnes (P.acnes) Not Detected (NOT DETECT); Enterococcus faecalis Not Detected (NOT DETECT); Enterococcus faecium Not Detected (NOT DETECT); Listeria Not Detected (NOT DETECT); Micrococcus Not Detected (NOT DETECT); Pan Candida Not Detected (NOT DETECT); Pan Gram-Negative Not Detected (NOT DETECT); Staphylococcus epidermidis Not Detected (NOT DETECT); Staphylococcus lugdunensis Not Detected (NOT DETECT); Staphylococcus species Detected (NOT DETECT); Streptococcus anginosus group Not Detected (NOT DETECT); Streptococcus pyogenes Not Detected (NOT DETECT); Streptococcus species Not Detected (NOT DETECT); mecA Not Detected (NOT DETECT); mecC Not Detected (NOT DETECT)
--- NOTE | 2025-05-22 11:03 | CTR_ITS ---
PROCEDURE INFORMATION: Exam: CT Left Lower Extremity Without Contrast, Knee Exam date and time: 05/22/2025 12:01 PM Age: 75 years old Clinical indication: Pain; Knee; Left; Prior surgery; Surgery date: 6+ months; Surgery type: Orif; Additional info: Drainage from knee TECHNIQUE: Imaging protocol: CT of the left lower extremity without contrast was performed. Exam focused on the knee. Radiation optimization: All CT scans at this facility use at least one of these dose optimization techniques: automated exposure control; mA and/or kV adjustment per patient size (includes targeted exams where dose is matched to clinical indication); or iterative reconstruction. COMPARISON: CT knee LT w con [id number] 10/17/2023 12:09 PM RADIATION DOSE METRICS: Total DLP (mGy-cm): 918.1 FINDINGS: Bones/joints: The bones appear demineralized. No evidence of acute fracture or dislocation. There are healed fractures of the tibial plateau and metaphysis, fibular head, and distal femoral shaft and metaphysis. Severe joint space narrowing and osteophyte formation at the patellofemoral compartment is noted. Severe medial and lateral femorotibial compartment narrowing with moderate osteophyte formation. Lateral plate and screw fixation across the distal femoral shaft and metaphysis is present, and the hardware appears intact. Probable moderate knee joint effusion. Soft tissues: Numerous benign-appearing subcutaneous calcifications are noted. Streaky areas of subcutaneous soft tissue density are noted along the inferolateral aspect of the left femoral shaft and metaphyseal region, this is associated with concavity of the skin surface suggestive of scarring, with new small foci of subcutaneous gas (series 17, images 76 and 87). No well-defined fluid collection is identified. The previously noted fluid collection along the medial aspect of the proximal lower leg is no longer identified. Vasculature: Multifocal regions of atherosclerotic calcification are present. CT/CT knee LT wo con* [id number] IMPRESSION: 1. No acute osseous findings. 2. In the region of probable scarring along the anterolateral aspect of the distal femur, new small foci of gas are identified in the subcutaneous fat likely within a region of healing postoperative scarring. This may represent gas tracking from an overlying skin wound. An infectious etiology is less likely but not excluded in the appropriate clinical setting. Correlation with clinical history is recommended. No well-defined associated fluid collection is identified. 3. Tricompartmental primary osteoarthritic changes and healed fractures of the distal femur, proximal tibia, and proximal fibula. 4. Uncomplicated appearing postoperative changes of the femur.
--- NOTE | 2025-05-22 13:52 | P.PN_ITS ---
Subjective 2 Subjective: Doris Clarke is a 75 year old female with prior medical history of HLD, CVA, UTI, anemia, falls, elevated liver enzymes, sacral decubitus ulcer stage III, bacteremia, cellulitis, and altered mental status presenting with complaints of shortness of breath. Patient is normally on 3-4 L but dropped below 90% and is now requiring 6 L to maintain acceptable O2 requirements. This morning at home, she had increased altered mental status, only oriented to self. EMS was called and she was transported to [facility] ED for assessment. Upon arrival, she was in respiratory distress requiring use of accessory muscles to breathe. At time of assessment this evening she is resting comfortably, very pleasant, requesting milk. She drinks comfortably through a straw with assistance. She cannot use her hands secondary to contractures. will be able to provide more history at a later time. In the ED, BP 152/77, HR 92, RR 16, T98.1, O2 93, 5 L nasal cannula. WBC 13.54, Hgb 12.5, PLT 291. pH 7.46, pCO2 42.1, pO2 74.7, HCO3 29.7. Na 133, Cl 94. Lactic WNL 1.0. Troponin 23 > 21.64. Urinalysis; [place], cloudy, trace protein, 3+ blood, 1+ bilirubin, nitrate positive, 2+ leukocytes, bacteria 4+. Head CT; no acute intercranial hemorrhage or edema, moderate symmetric cerebral and cerebellar atrophy with mild small vessel changes, ventriculomegaly on the basis of atrophy, see full results. CT angio chest with abdomen pelvis; quality of this exam compromised by artifact and motion, tiny filling defect segmental branch left upper lobe pulmonary artery may be chronic, large portions of the ulnar arteries obscured by artifact, marked fecal retention and air throughout the colon, marked rectal distention up to 10 cm in diameter, gallbladder not identified and may have been surgically removed, mild central biliary dilatation probably on the basis of cholecystectomy, common bile duct poorly visualized but not dilated near the pancreatic head, IVC filter, no renal obstruction, superficial right decubitus ulcer measuring 2.8 X1 0.8 cm, Anderson catheter in a nondistended urinary bladder, no abscess or GI tract perforation identified. CXR; no acute findings, see full results. Will admit to hospitalist service for further evaluation and treatment. 05/22/25: Patient resting comfortably, s till requiring just her baseline O2. Negative for respiratory distress. She is being treated for UTI. Pleasantly confused. Consuming fluids well. Will continue to monitor. Possible discharge tomorrow. Vitals/I&O/Wt Last Vital Signs Temp 97.8 F 05/22/25 16:00 Pulse 68 05/22/25 16:00 Resp 14 05/22/25 16:00 BP 115/72 05/22/25 16:00 Pulse Ox 95 05/22/25 16:00 O2 Del Method Nasal Cannula 05/22/25 16:00 O2 Flow Rate 3 05/22/25 10:11 05/22/25 05/22/25 05/22/25 06:59 14:59 22:59 Intake Total 290 / 2110 420 / 420 240 / 660 Output Total 300 / 300 325 / 325 Balance -1809 420 / 420 -85 / 335 Weight last 48 hrs Weight 56.608 kg Weight 55.883 kg Physical Exam 2 Narrative: General: AAO x1 HEENT: PERRLA, pupils bilaterally equal and reactive, pallors not present Chest: Use of accessory muscles to breathe upon arrival CVS: S1-S2 regular, no murmurs, no tachycardia, no gallops, no rubs Abdomen: Soft, nontender, no organomegaly, bowel sounds present Neuro: No focal deficits, no facial deformity, AO x 1 Data 05/22/25 02:56 05/22/25 02:56 Micro: Microbiology 05/21/25 09:38 Blood Culture - Preliminary Blood NEGATIVE TO DATE 05/21/25 09:09 Urine Culture - Preliminary Urine,Clean Catch Gram Negative Rods 05/21/25 09:30 Blood Culture - Preliminary Blood Staphylococcus sp coag neg A&P Assessment and plan 1. Altered mental status: History of AMS on other encounters Altered mentation above baseline pH 7.46, pCO2 42.1, pO2 74.7, HCO3 29.7 Ammonia level pending Head CT; no acute intercranial hemorrhage or edema, moderate symmetric cerebral and cerebellar atrophy with mild small vessel changes, ventriculomegaly on the basis of atrophy, see full results Lactic WNL at 1.0 Avoid sedative agents Hold home trazodone, tizanidine, and diazepam 2. Shortness of breath: On 3-4 L at baseline at home Now requiring 6 L to maintain saturations greater than 90% Monitor ABGs; pH 7.46, pCO2 42.1, pO2 74.7, HCO3 29.7 Pulse oximetry Supplemental O2 to keep saturations greater than 92% RT 3. Hypertension: BP 152/77, HR 92 BP monitoring 4. Elevated troponin: Troponin 23 >21.64 Monitor troponins CXR; no acute findings, see full results. Will admit to hospitalist service for further evaluation and treatment. EKG Telemetry 5. Urinary tract infection: WBC 13.54 Urinalysis; [place], cloudy, trace protein, 3+ blood, 1+ bilirubin, nitrate positive, 2+ leukocytes, bacteria 4+ Avoid nephrotoxic agents IVF BUN and creatinine WNL Pain management as needed PDMP PDMP Reviewed: Not Reviewed Attestations 2 Medical Necessity Statement*: Patient not expected to stay 2 additional midnights secondary to controlled respiratory status and treatment of UTI. Diagnoses Altered mental status R41.82 Shortness of breath R06.02 Hypertension I10 Elevated troponin R79.89 Urinary tract infection N39.0
[2025-05-23] VITALS (9 sets, daily range): BP systolic 106–138; BP diastolic 55–78; PULSE 58–88; RESP 15–17; TEMP 36.4–37.6; O2SAT 92–98; BMI 25.3
[2025-05-23 04:52] LABS: Hematocrit 31.7 % (36-47); Hemoglobin 10.00 g/dL (11.27-16.99); Mean Corpuscular HGB Conc 31.5 g/dL (30-55); Mean Corpuscular Hemoglobin 28.7 pg (27-33); Mean Corpuscular Volume 91.1 fl (85-98); Nucleated Red Blood Cells % 0 %; Platelet Count 245 10^3/cmm (157-399); Red Blood Count 3.48 10^6/uL (3.85-5.65); White Blood Count 12.18 10^3/uL (3.29-11.43)
[2025-05-23 05:15] LABS: Alanine Aminotransferase < 5 U/L (0-33); Albumin Level 2.3 g/dL (3.5-5.2); Alkaline Phosphatase 17 U/L (35-105); Anion Gap 11.3 (5-19); Aspartate Amino Transferase 10 U/L (0-32); Blood Urea Nitrogen 9 mg/dL (8-23); Calcium 8.0 mg/dL (8.5-10.5); Carbon Dioxide 28 mmol/L (22-29); Chloride 100 mmol/L (98-107); Globulin 3.3 g/dL (1.3-4.6); Glucose 95 mg/dL (65-115); Magnesium 1.8 mg/dL (1.7-2.3); Osmolality Calculated 280 mOsm/kg (285-295); Potassium 3.3 mmol/L (3.5-5.1); Sodium 136 mmol/L (136-145); Total Protein 5.6 g/dL (6.6-8.7)
[2025-05-23] MEDS: ferrous sulfate EC 325 mg Tablet PO (05:21)
[2025-05-23] MEDS: piperacillin-tazobactam 3.375 GM in sodium chloride 0.9% (plus) 50 ML IV ×2 (05:22→13:23)
--- NOTE | 2025-05-23 16:59 | P.PN_ITS ---
Subjective 2 Subjective: Doris Clarke is a 75 year old female with prior medical history of HLD, CVA, UTI, anemia, falls, elevated liver enzymes, sacral decubitus ulcer stage III, bacteremia, cellulitis, and altered mental status presenting with complaints of shortness of breath. Patient is normally on 3-4 L but dropped below 90% and is now requiring 6 L to maintain acceptable O2 requirements. This morning at home, she had increased altered mental status, only oriented to self. EMS was called and she was transported to [facility] ED for assessment. Upon arrival, she was in respiratory distress requiring use of accessory muscles to breathe. At time of assessment this evening she is resting comfortably, very pleasant, requesting milk. She drinks comfortably through a straw with assistance. She cannot use her hands secondary to contractures. will be able to provide more history at a later time. In the ED, BP 152/77, HR 92, RR 16, T98.1, O2 93, 5 L nasal cannula. WBC 13.54, Hgb 12.5, PLT 291. pH 7.46, pCO2 42.1, pO2 74.7, HCO3 29.7. Na 133, Cl 94. Lactic WNL 1.0. Troponin 23 > 21.64. Urinalysis; [place], cloudy, trace protein, 3+ blood, 1+ bilirubin, nitrate positive, 2+ leukocytes, bacteria 4+. Head CT; no acute intercranial hemorrhage or edema, moderate symmetric cerebral and cerebellar atrophy with mild small vessel changes, ventriculomegaly on the basis of atrophy, see full results. CT angio chest with abdomen pelvis; quality of this exam compromised by artifact and motion, tiny filling defect segmental branch left upper lobe pulmonary artery may be chronic, large portions of the ulnar arteries obscured by artifact, marked fecal retention and air throughout the colon, marked rectal distention up to 10 cm in diameter, gallbladder not identified and may have been surgically removed, mild central biliary dilatation probably on the basis of cholecystectomy, common bile duct poorly visualized but not dilated near the pancreatic head, IVC filter, no renal obstruction, superficial right decubitus ulcer measuring 2.8 X1 0.8 cm, Anderson catheter in a nondistended urinary bladder, no abscess or GI tract perforation identified. CXR; no acute findings, see full results. Will admit to hospitalist service for further evaluation and treatment. 05/22/25: Patient resting comfortably, s till requiring just her baseline O2. Negative for respiratory distress. She is being treated for UTI. Pleasantly confused. Consuming fluids well. Will continue to monitor. Possible discharge tomorrow. 05/23/25: Patient resting comfortably do ing some coloring activities. Still being treated for UTI. No difficulties or complaints voiced. Discharge expected tomorrow, possibly to facility, working with case management on planning. Vitals/I&O/Wt Last Vital Signs Temp 98.1 F 05/23/25 11:29 Pulse 88 05/23/25 15:37 Resp 17 05/23/25 11:29 BP 106/55 05/23/25 11:29 Pulse Ox 96 05/23/25 11:29 O2 Del Method Nasal Cannula 05/23/25 11:29 O2 Flow Rate 3 05/23/25 07:48 05/23/25 05/23/25 05/23/25 06:59 14:59 22:59 Intake Total 63.542 / 1023.542 886.458 / 886.458 Output Total 350 / 875 550 / 550 Balance -286.458 / 148.542 336.458 / 336.458 Weight last 48 hrs Weight 56.926 kg Weight 56.608 kg Weight 55.883 kg Physical Exam 2 Narrative: General: AAO x1 HEENT: PERRLA, pupils bilaterally equal and reactive, pallors not present Chest: Use of accessory muscles to breathe upon arrival CVS: S1-S2 regular, no murmurs, no tachycardia, no gallops, no rubs Abdomen: Soft, nontender, no organomegaly, bowel sounds present Neuro: No focal deficits, no facial deformity, AO x 1 Data 05/23/25 04:24 05/23/25 04:24 Micro: Microbiology 05/21/25 09:09 Urine Culture - Final Urine,Clean Catch Escherichia coli esbl 05/22/25 11:05 Wound Culture - Preliminary Knee - #1 A&P Assessment and plan 1. Altered mental status: History of AMS on other encounters Altered mentation above baseline pH 7.46, pCO2 42.1, pO2 74.7, HCO3 29.7 Ammonia level pending Head CT; no acute intercranial hemorrhage or edema, moderate symmetric cerebral and cerebellar atrophy with mild small vessel changes, ventriculomegaly on the basis of atrophy, see full results Lactic WNL at 1.0 Avoid sedative agents Hold home trazodone, tizanidine, and diazepam 2. Shortness of breath: On 3-4 L at baseline at home Now requiring 6 L to maintain saturations greater than 90% Monitor ABGs; pH 7.46, pCO2 42.1, pO2 74.7, HCO3 29.7 Pulse oximetry Supplemental O2 to keep saturations greater than 92% RT 3. Elevated troponin: Troponin 23 >21.64 Monitor troponins CXR; no acute findings, see full results. Will admit to hospitalist service for further evaluation and treatment. EKG Telemetry 4. Urinary tract infection: WBC 13.54 Urinalysis; [place], cloudy, trace protein, 3+ blood, 1+ bilirubin, nitrate positive, 2+ leukocytes, bacteria 4+ Avoid nephrotoxic agents IVF BUN and creatinine WNL Pain management as needed 5. Hypokalemia: K+ 3.3 Replete Monitor CMP PDMP PDMP Reviewed: Not Reviewed Attestations 2 Medical Necessity Statement*: Patient not expected to stay 2 additional midnights secondary to controlled respiratory status and treatment of UTI. Discharge planning pending for tomorrow. Diagnoses Altered mental status R41.82 Shortness of breath R06.02 Elevated troponin R79.89 Urinary tract infection N39.0 Hypokalemia E87.6
[2025-05-23 17:34] LABS: Troponin T (5th) Once 14 ng/L (0-10)
[2025-05-23 18:31] LABS: Base Excess VBG 3.3 mmol/L (-3.0-3.0); Blood Gas Operator Identificat glc; Blood Gas Sample Site Not specified; Blood Gas Sample Type Not specified; HCO3 VBG 27.9 mmol/L (24-28); PCO2 VBG 41.8 mmHg (41-51); PO2 VBG 35.0 mmHg (25-40); Venous Blood Gas Hematocrit 35.9 % (37-47); pH VBG 7.43 (7.32-7.42)
[2025-05-23] MEDS: MEROPENEM 2,000 MG in sodium chloride 0.9% (plus) 50 ML 100 MG IV (18:36)
[2025-05-24] VITALS: BP 120/79; PULSE 65; RESP 18; TEMP 37; O2SAT 95
[2025-05-24] MEDS: MEROPENEM 2,000 MG in sodium chloride 0.9% (plus) 50 ML 100 MG IV ×2 (03:32→10:13)
[2025-05-24 03:59] LABS: Hematocrit 31.8 % (36-47); Hemoglobin 10.10 g/dL (11.27-16.99); Mean Corpuscular HGB Conc 31.8 g/dL (30-55); Mean Corpuscular Hemoglobin 29.4 pg (27-33); Mean Corpuscular Volume 92.4 fl (85-98); Nucleated Red Blood Cells % 0 %; Platelet Count 306 10^3/cmm (157-399); Red Blood Count 3.44 10^6/uL (3.85-5.65); White Blood Count 11.15 10^3/uL (3.29-11.43)
[2025-05-24 04:00] VITALS: BP 102/69; PULSE 58; RESP 18; TEMP 36.4; O2SAT 97
[2025-05-24 04:21] LABS: Alanine Aminotransferase 6 U/L (0-33); Albumin Level 2.3 g/dL (3.5-5.2); Alkaline Phosphatase 27 U/L (35-105); Anion Gap 11.4 (5-19); Aspartate Amino Transferase 11 U/L (0-32); Blood Urea Nitrogen 8 mg/dL (8-23); Calcium 7.9 mg/dL (8.5-10.5); Carbon Dioxide 28 mmol/L (22-29); Chloride 104 mmol/L (98-107); Globulin 3.1 g/dL (1.3-4.6); Glucose 104 mg/dL (65-115); Magnesium 1.9 mg/dL (1.7-2.3); Osmolality Calculated 287 mOsm/kg (285-295); Potassium 4.4 mmol/L (3.5-5.1); Sodium 139 mmol/L (136-145); Total Protein 5.4 g/dL (6.6-8.7)
[2025-05-24 06:00] VITALS: BMI 25.4
[2025-05-24] MEDS: ferrous sulfate EC 325 mg Tablet PO (06:05)
[2025-05-24 07:42] VITALS: BP 120/59; PULSE 56; TEMP 36.9; O2SAT 92
[2025-05-24 11:08] VITALS: BP 102/44; PULSE 78; RESP 16; TEMP 37; O2SAT 93
--- NOTE | 2025-05-24 11:36 | PM.DCS ---
Discharge Providers Date of Admission: 05/21/25 12:21 Date of Discharge: May 24, 2025 Attending Provider at Admission: Duke Cesar MD Attending Provider at Discharge: ANNA Oleary, [employer] Primary Care Provider: Efren Romano MD Diagnoses at Discharge Discharge Diagnosis 1. Altered mental status: 2. Shortness of breath: 3. Elevated troponin: 4. Urinary tract infection: 5. Hypokalemia: Other Information Additional DC diagnoses/information: 1. Altered mental status: History of AMS on other encounters pH 7.46, pCO2 42.1, pO2 74.7, HCO3 29.7 Ammonia level pending Head CT; no acute intercranial hemorrhage or edema, moderate symmetric cerebral and cerebellar atrophy with mild small vessel changes, ventriculomegaly on the basis of atrophy, see full results Lactic WNL at 1.0 Avoid sedative agents; hold home trazodone, tizanidine, and diazepam Altered mentation above baseline on admission and now back to baseline at discharge to home. 2. Shortness of breath: On 3-4 L at baseline at home pH 7.46, pCO2 42.1, pO2 74.7, HCO3 29.7 Pulse oximetry Supplemental O2 to keep saturations greater than 92% RT Required up to 6 L on admission and now back to baseline. 3. Elevated troponin: CXR; no acute findings, see full results. Will admit to hospitalist service for further evaluation and treatment. EKG and Telemetry Troponin 23 >21.64 > 14, trended in the correct direction. 4. Urinary tract infection: WBC 13.54 Urinalysis; Mcintosh, cloudy, trace protein, 3+ blood, 1+ bilirubin, nitrate positive, 2+ leukocytes, bacteria 4+ Avoid nephrotoxic agents IVF BUN and creatinine WNL Pain management Patient switching from IV to p.o. antibiotics at discharge. 5. Hypokalemia: K+ 3.3 > 3.8 Resolved. Reason for Visit Reason for Visit: SOB Hospital Course Hospital Course Doris Clarke is a 75 year old female with prior medical history of HLD, CVA, UTI, anemia, falls, elevated liver enzymes, sacral decubitus ulcer stage III, bacteremia, cellulitis, and altered mental status presenting with complaints of shortness of breath. Patient is normally on 3-4 L but dropped below 90% and is now requiring 6 L to maintain acceptable O2 requirements. This morning at home, she had increased altered mental status, only oriented to self. EMS was called and she was transported to [facility] ED for assessment. Upon arrival, she was in respiratory distress requiring use of accessory muscles to breathe. At time of assessment this evening she is resting comfortably, very pleasant, requesting milk. She drinks comfortably through a straw with assistance. She cannot use her hands secondary to contractures. will be able to provide more history at a later time. In the ED, BP 152/77, HR 92, RR 16, T98.1, O2 93, 5 L nasal cannula. WBC 13.54, Hgb 12.5, PLT 291. pH 7.46, pCO2 42.1, pO2 74.7, HCO3 29.7. Na 133, Cl 94. Lactic WNL 1.0. Troponin 23 > 21.64. Urinalysis; Mcintosh, cloudy, trace protein, 3+ blood, 1+ bilirubin, nitrate positive, 2+ leukocytes, bacteria 4+. Head CT; no acute intercranial hemorrhage or edema, moderate symmetric cerebral and cerebellar atrophy with mild small vessel changes, ventriculomegaly on the basis of atrophy, see full results. CT angio chest with abdomen pelvis; quality of this exam compromised by artifact and motion, tiny filling defect segmental branch left upper lobe pulmonary artery may be chronic, large portions of the ulnar arteries obscured by artifact, marked fecal retention and air throughout the colon, marked rectal distention up to 10 cm in diameter, gallbladder not identified and may have been surgically removed, mild central biliary dilatation probably on the basis of cholecystectomy, common bile duct poorly visualized but not dilated near the pancreatic head, IVC filter, no renal obstruction, superficial right decubitus ulcer measuring 2.8 X1 0.8 cm, Anderson catheter in a nondistended urinary bladder, no abscess or GI tract perforation identified. CXR; no acute findings, see full results. Will admit to hospitalist service for further evaluation and treatment. 05/22/25: Patient resting comfortably, still requiring just her baseline O2. Negative for respiratory distress. She is being treated for UTI. Pleasantly confused. Consuming fluids well. Will continue to monitor. Possible discharge tomorrow. 05/23/25: Patient resting comfortably doing some coloring activities. Still being treated for UTI. No difficulties or complaints voiced. Discharge expected tomorrow, possibly to facility, working with case management on planning. 05/24/2025: Patient is in stable condition and will be discharged to home. Switching from IV antibiotics to p.o. Information including discharge instructions. Patient advised to return to ED if her oxygen requirements increase again. Physical Exam Narrative: General: AAO x1 HEENT: PERRLA, pupils bilaterally equal and reactive, pallors not present Chest: Normal inspection of chest CVS: S1-S2 regular, no murmurs, no tachycardia, no gallops, no rubs Abdomen: Soft, nontender, no organomegaly, bowel sounds present Neuro: No focal deficits, no facial deformity, AO x 1 Discharge Data Studies Completed and Pending Completed Studies During Hospitalization Category Date Time Status CT Angio Chest + Abdomen Pelvis w/ contrast; 14675 + Cat Scan 05/21/25 09:[address] head wo con* [id number] Urgent Cat Scan 05/21/25 09:[address] knee LT wo con* [id number] Routine Cat Scan 05/22/25 11:03 Completed XR chest 1V portable 22075 Stat Exams 05/21/25 09:05 Completed Pending at discharge Category Date Time Status Blood Culture Stat Lab 05/21/25 09:38 Results Wound Culture Stat Lab 05/22/25 11:05 Results Radiology Impressions Chest X-Ray 05/21/25 09:05 IMPRESSION: No acute findings. Chest/Abdomen/Pelvis CT 05/21/25 09:18 IMPRESSION: 1. Quality of this examination is compromised by artifact and motion. 2. Tiny filling defect segmental branch LEFT upper lobe pulmonary artery. This may be chronic. Large portions of the ulnar arteries are obscured by artifact. 3. Marked fecal retention and air throughout the colon. Marked rectal distention up to 10 cm in diameter. 4. Gallbladder not identified and may've been surgically removed. Mild central biliary dilatation probably on the basis of cholecystectomy. Common bile duct is poorly visualized but not dilated near the pancreatic head. 5. IVC filter. 6. No renal obstruction. 7. Superficial RIGHT decubitus ulcer measures 2.8 x 1.8 cm. 8. Anderson catheter in a nondistended urinary bladder. 9. No abscess or GI tract perforation identified. Head CT 05/21/25 09:19 IMPRESSION: 1. No acute intracranial hemorrhage or edema. 2. Moderate symmetric cerebral and cerebellar atrophy with mild small vessel changes. 3. Ventriculomegaly on the basis of atrophy. Knee CT 05/22/25 11:03 IMPRESSION: 1. No acute osseous findings. 2. In the region of probable scarring along the anterolateral aspect of the distal femur, new small foci of gas are identified in the subcutaneous fat likely within a region of healing postoperative scarring. This may represent gas tracking from an overlying skin wound. An infectious etiology is less likely but not excluded in the appropriate clinical setting. Correlation with clinical history is recommended. No well-defined associated fluid collection is identified. 3. Tricompartmental primary osteoarthritic changes and healed fractures of the distal femur, proximal tibia, and proximal fibula. 4. Uncomplicated appearing postoperative changes of the femur. Laboratory Results WBC 11.15 10^3/uL (3.29-11.43) 05/24/25 03:12 RBC 3.44 10^6/uL (3.85-5.65) L 05/24/25 03:12 Hgb 10.10 g/dL (11.27-16.99) L 05/24/25 03:12 Hct 31.8 % (36-47) L 05/24/25 03:12 MCV 92.4 fl (85-98) 05/24/25 03:12 MCH 29.4 pg (27-33) 05/24/25 03:12 MCHC 31.8 g/dL (30-55) 05/24/25 03:12 RDW 15.1 % (12.1-15.1) 05/24/25 03:12 Plt Count 306 10^3/cmm (157-399) 05/24/25 03:12 MPV 10.0 fL (7.4-10.4) 05/24/25 03:12 Neut % (Auto) 69.1 % 05/24/25 03:12 Lymph % (Auto) 14.3 % 05/24/25 03:12 Mchenry % (Auto) 7.9 % 05/24/25 03:12 Eos % (Auto) 7.2 % 05/24/25 03:12 Baso % (Auto) 0.5 % 05/24/25 03:12 Neut # (Auto) 7.71 10^3/uL (1.8-7.7) H 05/24/25 03:12 Lymph # (Auto) 1.6 10^3/uL (0.8-4.8) 05/24/25 03:12 Mchenry # (Auto) 0.9 10^3/uL (0.2-0.9) 05/24/25 03:12 Eos # (Auto) 0.8 10^3/uL (0.0-0.8) 05/24/25 03:12 Baso # (Auto) 0.1 10^3/uL (0.0-0.1) 05/24/25 03:12 Nucleated RBC % (auto) 0 % 05/24/25 03:12 Nucleated RBCs # 0.0 /100WBC 05/24/25 03:12 Specimen Type Not specified 05/23/25 18:26 Sample Site Not specified 05/23/25 18:26 ABG pH 7.46 (7.35-7.45) H 05/21/25 09:21 ABG pCO2 42.1 mmHg (35-45) 05/21/25 09:21 ABG pO2 74.7 mmHg (80.0-100.0) L 05/21/25 09:21 ABG PO2/FiO2 Ratio 186 05/21/25 09:21 ABG HCO3 29.7 mmol/L (22-26) H 05/21/25 09:21 ABG O2 Saturation 96.1 05/21/25 09:21 ABG Base Excess 5.3 mmol/L (-2.0-2.0) H 05/21/25 09:21 Galen Test N/a 05/23/25 18:26 VBG pH 7.43 (7.32-7.42) H 05/23/25 18:26 VBG pCO2 41.8 mmHg (41-51) 05/23/25 18:26 VBG pO2 35.0 mmHg (25-40) 05/23/25 18: VBG HCO3 27.9 mmol/L (24-28) 05/23/25 18: VBG Base Excess 3.3 mmol/L (-3.0-3.0) H 05/23/25 18:26 VBG Hematocrit 35.9 % (37-47) L 05/23/25 18: A-a O2 Gradient 20.3 mmHg (5-10) H 05/21/25 09:21 Hematocrit 37.6 % (37-47) 05/21/25 09:21 Hgb O2 Saturation 93.8 % (95-100) L 05/21/25 09:21 Carboxyhemoglobin 2.1 %THgb (0.4-20.1) 05/21/25 09:21 Methemoglobin 0.2 % (0.4-1.5) L 05/21/25 09:21 Total Hemoglobin 12.3 g/dL (12-16) 05/21/25 09:21 Sodium 135.0 mmol/L (131-143) 05/21/25 09:21 Potassium 3.8 mmol/L (3.5-5.0) 05/21/25 09:21 Glucose 103.0 mg/dL (70-115) 05/21/25 09:21 Ionized Calcium 1.2 mmol/L (1.1-1.4) 05/21/25 09:21 O2 Delivery Device Not Reportable 05/23/25 18:26 O2 Liters/Min 5.0 % 05/21/25 09:21 FiO2 40.0 % 05/21/25 09:21 Pyridine Recovery Operator ID [id number] 05/23/25 18:26 Sodium 139 mmol/L (136-145) 05/24/25 03:12 Potassium 4.4 mmol/L (3.5-5.1) 05/24/25 03:12 Chloride 104 mmol/L (98-107) 05/24/25 03:12 Carbon Dioxide 28 mmol/L (22-29) 05/24/25 03:12 Anion Gap 11.4 (5-19) 05/24/25 03:12 BUN 8 mg/dL (8-23) 05/24/25 03:12 Creatinine 0.5 mg/dL (0.5-0.9) 05/24/25 03:12 GFR Calculation Not Reportable 05/24/25 03:12 Glucose 104 mg/dL (65-115) 05/24/25 03:12 Calculated Osmolality 287 mOsm/kg (285-295) 05/24/25 03:12 Lactic Acid 1.0 mmol/L (0.5-2.2) 05/21/25 08:33 Calcium 7.9 mg/dL (8.5-10.5) L 05/24/25 03:12 Phosphorus 3.2 mg/dL (2.5-4.5) 05/24/25 03:12 Magnesium 1.9 mg/dL (1.7-2.3) 05/24/25 03:12 Total Bilirubin 0.3 mg/dL (0.15-1.2) 05/24/25 03:12 AST 11 U/L (0-32) 05/24/25 03:12 ALT 6 U/L (0-33) 05/24/25 03:12 Alkaline Phosphatase 27 U/L (35-105) L 05/24/25 03:12 Troponin T 5th Gen ng/L 14 ng/L (0-10) H 05/23/25 04:24 Troponin T Baseline 23 ng/L (0-10) H 05/21/25 08:33 Troponin T 60 Minute 21.64 ng/L (0-10) H 05/21/25 09:38 Delta Troponin T -1.36 ABS# (0-10) L 05/21/25 09:38 Troponin T Hi Sens 6Hr 16.44 ng/L (0-10) H 05/21/25 14:49 Troponin T Hi Sens 6Hr Delta -6.56 ng/L (0-12) L 05/21/25 14:49 NT-Pro-B Natriuret Pep 440 pg/mL (0-450) 05/21/25 08:33 Total Protein 5.4 g/dL (6.6-8.7) L 05/24/25 03:12 Albumin 2.3 g/dL (3.5-5.2) L 05/24/25 03:12 Globulin 3.1 g/dL (1.3-4.6) 05/24/25 03:12 Procalcitonin 0.13 ng/mL (0-0.5) 05/21/25 08:33 Urine Color Mcintosh (Yellow) A 05/21/25 09:09 Urine Appearance Cloudy (CLEAR) A 05/21/25 09:09 Urine pH 5.0 (5-7) 05/21/25 09:09 Ur Specific [place] 1.021 (1.005-1.030) 05/21/25 09:09 Urine Protein Trace (Negative) A 05/21/25 09:09 Urine Glucose (UA) Negative (Normal) 05/21/25 09:09 Urine Ketones Trace (Negative) 05/21/25 09:09 Urine Blood 3+ (Negative) A 05/21/25 09:09 Urine Nitrate Positive (Negative) A 05/21/25 09:09 Urine Bilirubin 1+ (Negative) H 05/21/25 09:09 Urine Urobilinogen 1.0 mg/dL (Negative) 05/21/25 09:09 Ur Leukocyte Esterase 2+ (Negative) A 05/21/25 09:09 Urine RBC 21-50 /hpf (0-2) H 05/21/25 09:09 Urine WBC 51-100 /hpf (0-5) H 05/21/25 09:09 Ur Squamous Epith Cells 6-10 /hpf (0-5) 05/21/25 09:09 Amorphous Sediment Not Reportable 05/21/25 09:09 Urine Bacteria 4+ /hpf (NONE) H 05/21/25 09:09 Hyaline Casts 4.11 /lpf 05/21/25 09:09 Vancomycin Trough 13.2 ug/mL (10-15) 05/23/25 18:26 Influenza A (PCR) Negative (Negative) 05/21/25 09:09 Influenza Type B (PCR) Negative (Negative) 05/21/25 09:09 RSV (PCR) Negative (Negative) 05/21/25 09:09 SARS-CoV-2 (PCR) Negative (Negative) 05/21/25 09:09 Vitals Last Vital Signs Temp 98.6 F 05/24/25 11:08 Pulse 78 05/24/25 11:08 Resp 16 05/24/25 11:08 BP 102/44 05/24/25 11:08 Pulse Ox 93 05/24/25 11:08 O2 Del Method Nasal Cannula 05/24/25 11:08 O2 Flow Rate 3 05/24/25 07:42 Discharge Plan Discharge Patient Disposition: Home Condition: Stable Prescriptions: New amoxicillin-pot clavulanate 500-125 mg tablet 1 tab PO Q12H Qty: 14 0RF Continued (DME) woundvac See Rx Instructions .Route .MEDSUPPLY Qty: 1 0RF Rx Instructions: As directed atorvastatin [Lipitor] 40 mg tablet 40 mg PO BEDTIME ropinirole 1 mg tablet See Rx Instructions .ROUTE .COMPLEX Rx Instructions: 1mg po q am and 2mg po qpm tizanidine 4 mg tablet 4 mg PO TID PRN (Reason: Muscle Spasm) citalopram [Celexa] 20 mg tablet 20 mg PO QAM trazodone 100 mg tablet 100 mg PO BEDTIME ferrous sulfate [Iron (ferrous sulfate)] 325 mg (65 mg iron) Tablet 325 mg PO DAILY oxybutynin chloride 5 mg tablet 5 mg PO BID amitriptyline 25 mg tablet 25 mg PO BEDTIME diazepam 5 mg tablet 5 mg PO BID omeprazole 20 mg capsule,delayed release(DR/EC) 20 mg PO DAILY nystatin 100,000 unit/gram Powder 1 applic TOPICAL DAILY PRN (Reason: Rash) atropine 1 % drops 4 drp ophthalmic (eye) Q4H PRN (Reason: dry eye ) nitrofurantoin macrocrystal 50 mg capsule 50 mg PO DAILY diphenoxylate-atropine 2.5-0.025 mg tablet 1 tab PO QID metoprolol tartrate 25 mg tablet 12.5 mg PO BID albuterol sulfate 2.5 mg /3 mL (0.083 %) solution for nebulization 2.5 mg inhalation Q6H PRN (Reason: shortness of breath or wheezing) Qty: 75 0RF promethazine-DM 6.25-15 mg/5 mL syrup 5 ml PO DAILY PRN (Reason: Cough) furosemide 20 mg tablet 20 mg PO DAILY acetaminophen 500 mg tablet 1,000 mg PO Q8H PRN (Reason: Pain) Discharge Order = DC NOW: Discharge Order (Routine); Ordered 05/24/25 Ordered By: Jessica Mar Referrals: Efren Romano MD [Primary Care Provider, [facility]] - 4-7 days Discharge Diet: Advance as tolerated and Usual diet Discharge Activity: Resume usual activity Patient Instructions: Altered Mental Status (ED), Opioid Safety, Patient Portal & Mary Instructions Activity Restrictions/Additional Instructions: Please take antibiotics as prescribed. Follow-up with PCP outpatient within a week. Please return to the nearest emergency department if symptoms return/worsen, or oxygen requirements increase. Thank you for giving us the opportunity to take care of you here at [facility]. Discharge Attestations Time Spent in Discharge Care*: greater than 30 min Status at Discharge: Cognitive status at discharge: mildly impaired cognition, Behavioral status at discharge: cooperative, Quality Metrics Clinical Quality Measures [ No reported AMI, CVA or VTE this stay] Coding Level of Care Code 84334 Diagnoses Altered mental status R41.82 Altered mental status type: unspecified Shortness of breath R06.02 Elevated troponin R79.89 Urinary tract infection N30.00 Hematuria presence: without hematuria Urinary tract infection type: acute cystitis Hypokalemia E87.6
--- NOTE | 2025-05-24 13:27 | PC.SOCIAL ---
IMM Updated Updated pt on IMM. No questions voiced. Provided pt a copy. Initialed, dated, & timed a copy & placed in chart.
== END 2025-05-24 14:45 | disposition home or self-care (01) | DRG 689 ==
LOC: ER 11:22 → ER IP 13:00 → MEDSURG 15:50
PROVIDERS: Admitting Provider Internal Medicine; Emergency Provider Physician Assistant; PCP Family Medicine; Visit Provider Clinical Nurse Specialist Acute Care
DX: N39.0 Urinary tract infection, site not specified (principal); L89.153 Pressure ulcer of sacral region, stage 3; I69.954 Hemiplegia and hemiparesis following unspecified cerebrovascular disease affecting left non-dominant side; I13.0 Hypertensive heart and chronic kidney disease with heart failure and stage 1 through stage 4 chronic kidney disease, or unspecified chronic kidney disease; I50.32 Chronic diastolic (congestive) heart failure; R41.82 Altered mental status, unspecified; R79.89 Other specified abnormal findings of blood chemistry; E87.6 Hypokalemia; E78.5 Hyperlipidemia, unspecified; D63.1 Anemia in chronic kidney disease; M24.542 Contracture, left hand; M24.541 Contracture, right hand; N18.2 Chronic kidney disease, stage 2 (mild); I27.20 Pulmonary hypertension, unspecified; R06.02 Shortness of breath; Z91.81 History of falling; Z87.01 Personal history of pneumonia (recurrent); Z95.828 Presence of other vascular implants and grafts; Z87.440 Personal history of urinary (tract) infections; Z86.718 Personal history of other venous thrombosis and embolism; Z82.3 Family history of stroke; Z82.49 Family history of ischemic heart disease and other diseases of the circulatory system
CPT/HCPCS: 36415; 36600; 70450; 71045; 71275; 73700; 74177; 80051; 80053; 80202; 81001; 82330; 82803; 82805; 83605; 83735; 83880; 84100; 84145; 84484; 85025; 87040; 87070; 87077; 87086; 87150; 87186; 87205; 87637; 93005; 96365; 96367; 97161; 97167; 99285; J2185; J2543; J3373; J7030; J7050; J9999